=== PATIENT | female | born 1955 | race Caucasian/White ===

== ENCOUNTER → 2017-10-02 16:34 | Outpatient (CLI) | payer MEDICARE, SELFPAY ==
--- NOTE | 2017-10-02 | XR_ITS ---
XR chest 2V HISTORY: Cough and congestion, bronchitis ORDERING PHYSICIAN: Ashley Jain MD PATIENT AGE: 62 years COMPARISON: 06/12/2008 FINDINGS: The cardiomediastinal silhouette and pulmonary vascularity are within normal limits. Patchy density is present in the left lower lobe suspicious for pneumonia. There is chronic coarsening of the bronchovascular markings. Probable pericardial fat pad on the right there is some minimal blunting of the CP angle on the right suggesting small right effusion. IMPRESSION: Chronic change with left lower lobe infiltrate/pneumonia. Small right effusion
== END ==
PROVIDERS: PCP Family Medicine; Visit Provider Family Medicine
DX: J18.9 Pneumonia, unspecified organism (principal)
CPT/HCPCS: 71046

== ENCOUNTER → 2020-01-15 10:17 | Outpatient (CLI) | payer MEDICARE, OTHER, SELFPAY ==
[2020-01-15 12:15] LABS: Coronavirus 19 IgG Antibody Negative (Negative); Coronavirus 19 IgM Antibody Negative (Negative)
== END ==
PROVIDERS: Visit Provider Surgery
DX: Z01.818 Encounter for other preprocedural examination (principal)
CPT/HCPCS: 36415; 86328

== ENCOUNTER 2020-01-16 07:49 | Day surgery (SDC) | payer MEDICARE, OTHER, SELFPAY ==
--- NOTE | 2020-01-14 14:38 | SUR.PREOP ---
01/14/2020--PHONE CALL MADE TO PATIENT. PATIENT UNDERSTANDS THAT LAB WORK AND COVID TESTING NEEDS TO BE COMPLETED @ 0945 ON 01/15/2020. PATIENT UNDERSTANDS IF LAB WORK AND COVID-19 TESTS ARE NOT COMPLETED BY 12PM ON THAT DATE, THE SURGERY SCHEDULED WILL BE CANCELLED AND RESCHEDULED FOR ANOTHER TIME.
[2020-01-15 11:59] VITALS: BMI 39.9
[2020-01-16 08:17] VITALS: BP 143/81; PULSE 87; RESP 20; TEMP 36.5; O2SAT 94
[2020-01-16 09:05] VITALS: O2SAT 97
--- NOTE | 2020-01-16 09:11 | P.PN_ITS ---
[facility] Anesthesia Checklist - Patient Identification Patient Identification: Arm Band, Verbal (Name & ) - Structural Data Admitted From: Home Planned Operative Procedure/s: Colonoscopy Consent for Planned Operative Procedure(s) Verified: Yes Verified Documents: Surgical Consent, History and Physical - NPO Status Verified Time NPO: 22:00 - Chart Verification Results Verified: None - Additional verifications Anesthesia Reactions: No Hx Blood Transfusions: No Blood Transfusion Reaction: No - Airway Assessment C-Spine Mobility Assessed: Yes TMJ Mobility Assessed: Yes Dentition: Good Dentition - Neurological Assessment Level of Consciousness: Awake, Alert, Appropriate, Follows Commands Hx Seizures: No Numbness or tingling in extremities: Yes (left lateral thigh numbness at times) - Anesthesia Plan Anesthesia Risk discussed: Yes Anesthesia Plan: Verified ASA Class: III Anesthesia Type: MAC [facility] History I have reviewed the patient's past medical history: Yes Medical History: Reports:: Asthma, Atrial Fibrillation, Gastroesophageal Reflux Disease(GERD), Hyperlipidemia, Hypertension, Kidney Stones Denies:: Cancer, Diabetes Mellitus Type 1, Diabetes Mellitus Type 2, Internal Pacemaker, MRSA, Seizures *Have you ever received a pneumonia vaccine?: Yes *Have you received a flu vaccine this season?: Yes Other Medical History: Denies: Blood Transfusion Reaction Comment:: morbid obesity Anesthesia experience/problems:: none Laterality Cases: Left: Arthroscopy Knee, Right: Total Hip Replacement Other Surgeries: Yes: Cardiac Catheterization, Cholecystectomy, Colonoscopy, Other. No: Pacemaker Amputation: No Fractures: No - *Social History Educational Level: Completed High School Smoking Status: Never smoker Alcohol Intake: never Alcohol Intake Frequency:: other Substance Use Type: denies use *Occupational Status:: retired Housing: house Household Members: significant other *Travel in the last 8 weeks: None Family Hx:: Cancer
[2020-01-16 09:31] VITALS: BP 89/53; PULSE 74; RESP 18; TEMP 36.3; O2SAT 91
--- NOTE | 2020-01-16 09:33 | HMH.SCOPE ---
- Procedure: Date: 01/16/20 Procedure Performed:: Colonoscopy with polypectomy by means other than snare Indications:: History of polyps Poor bowel preparation on recent colonoscopy Performing Provider:: Jamison Gallegos MD Referring Provider:: . Sedation:: Monitored anesthesia care Procedure:: After informed consent was obtained the patient was taken to the endoscopy suite. Sedation ensued after the patient was transferred to the left lateral decubitus position. Pulse, blood pressure, and oxygen saturation were monitored throughout the procedure. Digital rectal exam revealed no significant abnormality. The colonoscope was placed in position. The entire colon was evaluated. The colonoscope was carefully removed and the patient was transferred to recovery in stable condition. Please see findings and specimens below for detail. Findings:: Bowel preparation moderate to poor Significant diverticulosis throughout colon Significant tortuosity Hemorrhoidal tags Polyps (see specimens) Specimens:: Cecal polyp Polyp at 75 cm Recommendations:: Timing of repeat colonoscopy is pending pathology but will likely be between 2-3 years secondary to limitations in visualization due to preparation/tortuosity. Complications:: No immediate Estimated blood obtained (mL): 1
[2020-01-16 09:41] VITALS: BP 104/70; PULSE 76; RESP 18; O2SAT 96
[2020-01-16 09:51] VITALS: BP 101/62; PULSE 73; RESP 18; O2SAT 94
[2020-01-16 10:01] VITALS: BP 101/62; PULSE 73; RESP 18; O2SAT 94
== END 2020-01-16 10:01 | disposition home or self-care (01) ==
LOC: OUTP 07:50
PROVIDERS: PCP Family Medicine; Visit Provider Surgery
PROC: 0DJD8ZZ Inspection of Lower Intestinal Tract, Via Natural or Artificial Opening Endoscopic (ICD-10-PCS; CPT 45380; principal; 2020-01-16 09:00)
DX: K57.30 Diverticulosis of large intestine without perforation or abscess without bleeding (principal); K64.9 Unspecified hemorrhoids; K63.89 Other specified diseases of intestine; K63.5 Polyp of colon; Z86.010 Personal history of colon polyps; Z79.82 Long term (current) use of aspirin; Z79.899 Other long term (current) drug therapy; I10 Essential (primary) hypertension; E78.5 Hyperlipidemia, unspecified; I48.91 Unspecified atrial fibrillation; Z87.39 Personal history of other diseases of the musculoskeletal system and connective tissue; Z80.9 Family history of malignant neoplasm, unspecified; Z87.442 Personal history of urinary calculi
CPT/HCPCS: 45380; 88305

== ENCOUNTER → 2020-02-19 13:14 | Outpatient (CLI) | payer MEDICARE, OTHER, SELFPAY ==
--- NOTE | 2020-02-19 13:20 | MR_ITS ---
PROCEDURE: MR LUMBAR SPINE WO CON CLINICAL INDICATION: MIDLINE LOW BACK PAIN Low back pain, worse when standing or walking, left leg numbness COMPARISON: LS5 LUMBAR SPINE 5 VIEWS from 06/21/2016 CXR2V XR chest 2V from 10/02/2017 TECHNIQUE: Standard multiplanar multiecho sequences are performed without contrast. 3-D MIP and myelographic images are also rendered and reviewed FINDINGS: There is normal alignment. The spinal cord ends at the T12 level. There is a transitional segment at the lumbosacral junction and is labeled as L5. If any intervention is contemplated then correlation with plain films are needed as well as special attention to the numbering system. T12-L1: Mild degenerative disc disease. L1-L2: Mild degenerative disc disease with mild facet and ligamentum hypertrophy. L2-L3: Mild degenerative disc disease with mild bulging disc along with facet ligamentum hypertrophy causing mild bilateral lateral recess narrowing slightly greater on the right with mild bilateral foraminal narrowing. There is mild kyphosis of the lumbar spine at the L2-L3 level. L3-L4: Mild degenerative disc disease with bulging disc along with facet and ligamentum hypertrophy. There is small central disc protrusion. There is bilateral lateral recess and foraminal narrowing with canal stenosis. L4-5: Degenerative disc disease with bulging disc with endplate hypertrophic change along with facet and ligamentum hypertrophy. There is moderate to severe bilateral foraminal narrowing and mild bilateral lateral recess narrowing. The bulging disc is slightly eccentric toward the left. L5-S1: Unremarkable. IMPRESSION: Abnormal MRI of the lumbar spine with multilevel lumbar spondylosis with degenerative disc disease, bulging disc, facet and ligamentum hypertrophy with lateral recess and foraminal narrowing and canal stenosis. Please see above for detailed description at each level. Dictated by: Mehdi Grady MD 02/20/2020 12:21 Electronically signed by Mehdi Grady MD in [place] 02/20/2020 12:21
== END ==
PROVIDERS: PCP Family Medicine; Visit Provider Family Medicine
DX: M54.42 Lumbago with sciatica, left side (principal)
CPT/HCPCS: 72148; 76376

== ENCOUNTER → 2020-02-27 08:41 | Outpatient (POV) | payer MEDICARE, OTHER, SELFPAY ==
[2020-02-27 09:16] VITALS: BP 120/71; PULSE 73; RESP 18; TEMP 36.6; O2SAT 99; BMI 39.9
--- NOTE | 2020-02-27 09:37 | HMH.PMCON ---
Assessment and Plan (1) Degenerative joint disease (DJD) of lumbar spine Current visit: Yes Status: Chronic Category: Medical Code(s): M47.816 - Spondylosis without myelopathy or radiculopathy, lumbar region (2) Lumbar radiculopathy Current visit: Yes Status: Chronic Category: Medical Code(s): M54.16 - Radiculopathy, lumbar region (3) Spinal stenosis Current visit: Yes Status: Chronic Category: Medical Code(s): M48.00 - Spinal stenosis, site unspecified - Assessment and plan all Dx Assessment and Plan for all problems:: We will schedule the patient for lumbar epidural steroid injection at L4-L5. She is not on any anticoagulation therapy. She is tried physical therapy along with a continued home stretching program and ice and heat therapies. We will plan to see her back after her injection to reassess her symptoms. The patient I did discuss other options, however, patient says that she will likely proceed with surgical intervention if the injections do not give her relief. Patient I did discuss possible mild procedure, however, she does not seem interested in this at this time. She has been instructed to contact the clinic if she has any concerns before her next appointment. The patient and I specifically discussed risk factors for COVID19. These risks include, but are not limited to age greater than 60, heart or lung disease, diabetes, immunosuppression, and travel. We also discussed NSAIDs may worsen COVID19 infection or symptoms. Patient should not use NSAIDs to treat COVID19 signs or symptoms. Patient was also informed that any type of corticosteroid of any form (oral or injection) will decrease the patient's immune system response and may increase the likelihood of COVID19 infection [address] symptoms[address]. Reddy has reviewed this note and agrees with this plan of care. This note was dictated using voice recognition software and make contain errors or omissions. HPI - Data of Consult Patient: new to practice Consult date: 02/27/20 Requesting Physician: Cathy Santiago APRN Primary Care Provider: Ashley Jain MD - Consult Narrative Reason for consult: Left low back pain, left lateral leg pain History of present illness: Ms. Pierson is a 65 year old female who presents today for mid to low back pain with radiation into her left low back and left lateral leg. She says she has numbness and tingling in her left leg. Patient reports the pain to be worse with standing and walking. She says that leaning forward does give her relief. Says she has tried physical therapy and it did not work. She is not interested in pursuing physical therapy again. She is also used ice and heat therapies and anti-inflammatories. Her pain is 7 out of 10. CC: Cathy Santiago APRN [facility] History I have reviewed the patient's past medical history: Yes Medical History: Reports:: Asthma, Atrial Fibrillation, Gastroesophageal Reflux Disease(GERD), Hyperlipidemia, Hypertension, Kidney Stones Denies:: Cancer, Diabetes Mellitus Type 1, Diabetes Mellitus Type 2, Internal Pacemaker, MRSA, Seizures *Have you ever received a pneumonia vaccine?: Yes *Have you received a flu vaccine this season?: Yes Other Medical History: Denies: Blood Transfusion Reaction Laterality Cases: Left: Arthroscopy Knee, Right: Total Hip Replacement Other Surgeries: Yes: Cardiac Catheterization, Cholecystectomy, Colonoscopy, Other. No: Pacemaker Amputation: No Fractures: No - *Social History Smoking Status: Never smoker Alcohol Intake: never Alcohol Intake Frequency:: other Substance Use Type: denies use *Occupational Status:: other Housing: house Household Members: other *Travel in the last 8 weeks: None Family Hx:: Unable to obtain Review of Systems - Review of Systems Review of Systems General: No recent weight changes, no fever, no sleep disturbances Respiratory: No cough, no shortness of air, no recurring pulmonary infections Cardi
== END ==
PROVIDERS: PCP Family Medicine; Visit Provider Clinical Nurse Specialist Family Health
DX: M47.26 Other spondylosis with radiculopathy, lumbar region (principal); M48.00 Spinal stenosis, site unspecified
CPT/HCPCS: 99202

== ENCOUNTER 2020-03-13 10:04 | Day surgery (SDC) | payer MEDICARE, OTHER, SELFPAY ==
[2020-03-13 11:02] VITALS: BP 149/85; PULSE 74; RESP 18; TEMP 36.8; O2SAT 94; BMI 39.9
[2020-03-13 11:30] VITALS: BP 135/88; PULSE 85; RESP 18; O2SAT 98
[2020-03-13 11:31] VITALS: BP 138/88; PULSE 79; RESP 18; O2SAT 99
--- NOTE | 2020-03-13 11:39 | HMH.PMPROC ---
- Procedure Date: 03/13/20 Time: 11:39 Anesthesiologist:: Jhon Reddy MD Complications:: None Pre-procedure Diagnosis:: Degenerative disc disease of lumbar spine with lumbar radiculopathy symptoms Post-procedure Diagnosis:: Same Indications for Procedure:: This patient is a pleasant 65-year-old white female who we are treating for low back pain with lumbar radiculopathy symptoms. She has low back pain rating to both hips and down her left leg. We will do a lumbar epidural steroid injection today to help her with her pain symptoms. Procedure Details:: Lumbar epidural steroid injection Informed consent was obtained and the risk and benefits of the procedure was explained to the patient. The patient was taken to the procedure room. The patient was placed prone on the procedure table. The patient was prepped and draped in sterile fashion. C-arm fluoroscopy was used to view the lumbar spine. Skin and subcutaneous tissues were anesthetized using lidocaine. I placed an 18-gauge epidural needle and advanced into the L4-L5 interspace using fluoroscopic guidance and [id number] to air. After confirmation of needle placement in the epidural space with dye I injected 2 mL of lidocaine 1.5% with Depo-Medrol 80 mg. Patient tolerated the procedure well with no complications. Plan and Disposition:: We will follow-up with her in 2 weeks. Will reevaluate symptoms at that time.
[2020-03-13 11:55] VITALS: BP 135/79; PULSE 69; RESP 20; O2SAT 94
== END 2020-03-13 11:55 | disposition home or self-care (01) ==
LOC: SC.PAINP 10:05
PROVIDERS: PCP Family Medicine; Visit Provider Anesthesiology
DX: M51.16 Intervertebral disc disorders with radiculopathy, lumbar region (principal); I10 Essential (primary) hypertension; K21.9 Gastro-esophageal reflux disease without esophagitis; I25.10 Atherosclerotic heart disease of native coronary artery without angina pectoris; E78.5 Hyperlipidemia, unspecified; I49.9 Cardiac arrhythmia, unspecified; K57.30 Diverticulosis of large intestine without perforation or abscess without bleeding; D64.9 Anemia, unspecified; Z87.39 Personal history of other diseases of the musculoskeletal system and connective tissue; Z79.82 Long term (current) use of aspirin; Z79.899 Other long term (current) drug therapy
CPT/HCPCS: 62323; J1040; Q9966

== ENCOUNTER → 2020-03-31 10:06 | Outpatient (CLI) | payer MEDICARE, OTHER, SELFPAY ==
--- NOTE | 2020-03-31 10:09 | XR_ITS ---
PROCEDURE: XR DEXA AXIAL SKELETON CLINICAL HISTORY: OSTEOPENIA, UNSPECIFIED LOCATION COMPARISON: No exams were available for comparison FINDINGS: The right forearm BMD is 0.706 with a t-score of 0.2. The left hip BMD is 1.199 with a t-score of 2.1. The lumbar spine BMD is 1.309 with a t-score of 2.4. IMPRESSION: This patient is considered normal according to the World Health Organization criteria. Fracture risk is low. Based on these results of follow-up exam is recommended in 2 years Dictated b Mehdi Grady MD 04/01/2020 09:44 Mehdi Grady MD in [place] 04/01/2020 09:44
== END ==
PROVIDERS: PCP Family Medicine; Visit Provider Family Medicine
DX: M85.89 Other specified disorders of bone density and structure, multiple sites (principal)
CPT/HCPCS: 77080

== ENCOUNTER → 2020-04-09 08:42 | Outpatient (POV) | payer MEDICARE, OTHER, SELFPAY ==
[2020-04-09 09:06] VITALS: BP 108/66; PULSE 62; RESP 18; O2SAT 98; BMI 41.2
--- NOTE | 2020-04-09 09:36 | HMH.PAINSOAP ---
[facility] Pain Management SOAP Note Subjective:: Patient is a pleasant 65-year-old white female who presents today for follow-up after lumbar epidural steroid injection. Patient says she did not get any relief after the injection. She has been treated for low back pain with lumbar radiculopathy symptoms. She has pain in her low back with radiation into her left lateral leg. She says that she has occasional numbness and tingling in her left foot. She rates her pain a 7 out of 10 today. She is not interested in further injective therapy. She is also not interested in further interventional therapies. She and I did discuss we can start her on tramadol, however, we will not be able to give anything other than tramadol. She is in agreement with this. She does take gabapentin by her primary care provider. She says this does not give her much relief. Review of Systems General: No recent weight changes, no fever, no sleep disturbances Respiratory: No cough, no shortness of air, no recurring pulmonary infections Cardiovascular/peripheral vascular: No chest pain, no palpitations, no edema, no shortness of breath Gastrointestinal: No new onset incontinence, normal bowel movements reported Genitourinary: No new onset incontinence Musculoskeletal: Back pain, left lateral leg pain Psychiatric: Normal mood/affect Neurological: [Denies weakness in extremities], [denies balance issues] Objective:: Physical exam General: Alert and oriented x3, no acute distress, pleasant and cooperative, [on room air] Lungs: Respirations even and unlabored, symmetrical chest expansion Eyes: PERRL Musculoskeletal: Flexion and extension of lumbar spine somewhat guarded secondary to pain, deep tendon reflexes normal, strength in upper and lower extremities [5/5], [abnormal gait noted] Neurological: Speech clear, 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 3 times daily. Will give her a month of medication see her back in a month and see her back in the clinic. She has been instructed to contact clinic if she has any concerns before her next appointment. The patient and I specifically discussed risk factors for COVID19. These risks include, but are not limited to age greater than 60, heart or lung disease, diabetes, immunosuppression, and travel. We also discussed NSAIDs may worsen COVID19 infection or symptoms. Patient should not use NSAIDs to treat COVID19 signs or symptoms. Patient was also informed that any type of corticosteroid of any form (oral or injection) will decrease the patient's immune system response and may increase the likelihood of COVID19 [address] Reddy has reviewed this note and agrees with this plan of care. This note was dictated using voice recognition software and make contain errors or omissions. [facility] History I have reviewed the patient's past medical history: Yes Medical History: Reports:: Arrhythmia, Asthma, Atrial Fibrillation, Coronary Artery Disease, Gastroesophageal Reflux Disease(GERD), Hyperlipidemia, Hypertension, Kidney Stones Denies:: Cancer, Diabetes Mellitus Type 1, Diabetes Mellitus Type 2, Internal Pacemaker, MRSA, Seizures *Have you ever received a pneumonia vaccine?: Yes *Have you received a flu vaccine this season?: Yes Other Medical History: Reports: Anemia. Denies: Blood Transfusion Reaction Laterality Cases: Left: Arthroscopy Knee, Right: Total Hip Replacement Other Surgeries: Yes: Cardiac Catheterization, Cholecystectomy, Colonoscopy, Other. No: Pacemaker Amputation: No Fractures: No - *Social History Smoking Status: Never smoker Alcohol Intake: never Alcohol Intake Frequency:: other Substance Use Type: denies use *Occupational Status:: other Housing: house Household Members: other *Travel in the last 8 weeks: None Family Hx:: Unable to obtain
== END ==
PROVIDERS: PCP Family Medicine; Visit Provider Clinical Nurse Specialist Family Health
DX: M51.16 Intervertebral disc disorders with radiculopathy, lumbar region (principal)
CPT/HCPCS: 99212

== ENCOUNTER → 2020-05-26 10:11 | Outpatient (CLI) | payer MEDICARE, OTHER, SELFPAY ==
--- NOTE | 2020-05-26 10:14 | CA_ITS ---
APPROVED REPORT EXAM: Comprehensive 2D, Doppler, and color-flow Echocardiogram Pouncing Machine Operator: Amy Beltre RDCS Ht: 5 ft 6 in Wt: 246lbs BSA: 2.18 BP: 126/66 mmHg Indications: HTN,CAD,STEVENS,HLP 2D Dimensions LVOT 1.73 cm (M/F) 1.5-2.5 M-Mode Dimensions RVDd 3.82 cm (0.9-2.6) LVDd 4.39 cm (3.5-5.7) LVDs 3.66 cm (3.5-5.7) IVSd 1.09 cm (0.6-1.1) PWd 1.13 cm (0.6-1.1) EF (Teich) 35.10% FS 16.60% EDV (Teich) 87.20 mL ESV (Teich) 56.60 mL LV Diastology E/A Ratio 0.76 Mitral Valve MV A Velocity 61.00 (40-130 cm/s) Left Ventricle Left atrium is mildly enlarged, left ventricle is normal size, mild concentric left ventricular hypertrophy, visually estimated ejection fraction 55% with no regional wall motion abnormality. Grade 1 diastolic dysfunction seen without tissue Doppler evidence of raise left atrial pressure. Right Ventricle Right atrium and right ventricular mildly enlarged with normal contractility. Aortic Valve Aortic valve is thickened and calcified leaflet continue to display good mobility, there is no aortic stenosis or aortic insufficiency. Mitral Valve Mitral valve is minimally thickened, there is mild mitral regurgitation. Tricuspid Valve Tricuspid valve is grossly normal, there is mild tricuspid regurgitation, calculated right ventricular systolic pressure is approximately 45 mmHg. Pulmonic Valve Pulmonic valve is poorly visualized. Great Vessels Aortic root is normal size. Pericardium No significant pericardial effusion noted. Conclusion 1. Biatrial enlargement, normal left ventricular size, mild concentric left ventricular hypertrophy, visually estimated ejection fraction 55% with no regional wall motion abnormality, grade 1 diastolic dysfunction seen without tissue Doppler evidence of raise left atrial pressure. 2. Mildly enlarged right ventricle with normal contractility. 3. Mild mitral and tricuspid regurgitation, calculated right ventricular systolic pressure is 45 mmHg. 4. No significant pericardial effusion noted. Electronically signed by : Jermaine Tesfaye, 05/26/2020 20:34:48
== END ==
PROVIDERS: PCP Family Medicine; Visit Provider Urology
DX: I11.9 Hypertensive heart disease without heart failure; I25.10 Atherosclerotic heart disease of native coronary artery without angina pectoris; R06.09 Other forms of dyspnea; E78.49 Other hyperlipidemia
CPT/HCPCS: 93306

== ENCOUNTER → 2020-09-16 15:57 | Outpatient (CLI) | payer MEDICARE, OTHER, SELFPAY ==
[2020-09-16 17:02] LABS: Chloride 98 mmol/L (98-107)
[2020-09-16 17:03] LABS: Potassium 3.8 mmoL/L (3.5-5.1); Sodium 138 mmol/L (136-145)
[2020-09-16 17:05] LABS: Alanine Aminotransferase 18 U/L (12-78); Alkaline Phosphatase 124 U/L (38-126); Aspartate Amino Transferase 20 U/L (14-36); Bilirubin,Total 0.8 mg/dl (0.2-1.3); Blood Urea Nitrogen 17 mg/dl (7-17); Estimated Glomerular Filt Rate 62 ml/min (>60); GFR (African American) 76 ML/MIN (>60)
[2020-09-16 17:06] LABS: Albumin Level 4.2 g/dl (3.5-5.0); Albumin/Globulin Ratio 1.1 (1.1-1.8); Anion Gap 12.8 mEq/L (5-15); Carbon Dioxide 31 mmol/L (22.0-30.0); Chol/HDL Ratio 2.9 (1-3.5); Cholesterol 147 mg/dl (140-200); Globulin 3.9 g/dL (1.3-3.2); Glucose 102 mg/dl (74-100); HDL Cholesterol 50 mg/dl (40-60); Total Protein,Serum 8.1 g/dl (6.3-8.2); Triglycerides 183 mg/dl (30-150); VLDL Cholesterol 37 mg/dL (0-40)
[2020-09-16 17:17] LABS: Direct LDL Cholesterol 40.05 mg/dL (100-129)
[2020-09-16 17:46] LABS: Uric Acid 7.1 mg/dl (2.5-6.2)
== END ==
PROVIDERS: Visit Provider Family Medicine
DX: M79.672 Pain in left foot (principal); E78.00 Pure hypercholesterolemia, unspecified; I10 Essential (primary) hypertension
CPT/HCPCS: 36415; 80053; 80061; 84550

== ENCOUNTER → 2020-11-24 13:28 | Outpatient (CLI) | payer MEDICARE, OTHER, SELFPAY | PROVIDERS: PCP Family Medicine; Visit Provider Family Medicine | DX: G47.33 Obstructive sleep apnea (adult) (pediatric) (principal); I10 Essential (primary) hypertension; G47.00 Insomnia, unspecified; R06.83 Snoring | CPT/HCPCS: G0399 ==

== ENCOUNTER → 2021-01-13 13:51 | Outpatient (CLI) | payer MEDICARE, OTHER, SELFPAY ==
--- NOTE | 2021-01-13 | ECG_ITS ---
APPROVED REPORT Exam: Resting ECG HR:77 bpm ECG Measurements Heart Rate 77 AXES MS 156 P 67 QRSd 80 QRS -35 QT 402 T 19 QTc 454 Conclusion Sinus rhythm with frequent premature ventricular complexes in a pattern of bigeminy Left axis deviation Low voltage QRS Cannot rule out Anterior infarct, age undetermined Abnormal ECG Electronically signed by : Hermann Aleman, 01/16/2021 07:32:52
== END ==
PROVIDERS: PCP Family Medicine; Visit Provider Family Medicine
DX: R00.1 Bradycardia, unspecified (principal)
CPT/HCPCS: 93005

== ENCOUNTER → 2021-01-15 11:35 | Outpatient (CLI) | payer MEDICARE, OTHER, SELFPAY ==
[2021-01-15 13:13] LABS: NT Pro Brain Natriuretic Pep. 467 pg/mL (0-125)
== END ==
PROVIDERS: Visit Provider Internal Medicine Cardiovascular Disease
DX: R06.09 Other forms of dyspnea (principal)
CPT/HCPCS: 36415; 83880

== ENCOUNTER → 2021-01-22 09:55 | Outpatient (CLI) | payer MEDICARE, OTHER, SELFPAY ==
[2021-01-22 10:59] LABS: Anion Gap 14.1 mEq/L (5-15); Blood Urea Nitrogen 18 mg/dl (7-17); Calcium 9.8 mg/dl (8.4-10.2); Carbon Dioxide 25 mmol/L (22.0-30.0); Chloride 103 mmol/L (98-107); Estimated Glomerular Filt Rate 71 ml/min (>60); GFR (African American) 86 ML/MIN (>60); Glucose 104 mg/dl (74-100); Potassium 4.1 mmoL/L (3.5-5.1); Sodium 138 mmol/L (136-145)
== END ==
PROVIDERS: Visit Provider Internal Medicine Cardiovascular Disease
DX: I11.9 Hypertensive heart disease without heart failure; I25.10 Atherosclerotic heart disease of native coronary artery without angina pectoris; I49.3 Ventricular premature depolarization; R06.09 Other forms of dyspnea; R60.9 Edema, unspecified; R94.31 Abnormal electrocardiogram [ECG] [EKG]
CPT/HCPCS: 36415; 80048

== ENCOUNTER → 2021-01-25 11:15 | Outpatient (CLI) | payer MEDICARE, OTHER, SELFPAY ==
--- NOTE | 2021-01-25 | CA_ITS ---
APPROVED REPORT Exam: Pharmacologic Technologist: analy sams, Ht: 5 ft 8 in Wt: 240 lbs BSA: 2.21 m2 HR: 70 bpm BP: 126/74 mmHg Indications: SOB Medical History Medications: Metoprolol,,,,, Asa,,,,, Gabapentin,,,,, Losartan,,,,, Allopurinol,,,,, Lipitor,,,,, Tramadol,,,,, Esomeprazole,,,,, SpirOnolactone,,,,, MonteKULAST,,,,, PotTASSIUM,,,,, Allergies: codeine Cardiac Risk Factors: HTN, Hyperlipidemia, FHX of CAD Stress Test Details Test: LEXISCAN HR Resting HR: 74 bpm Max Heart Rate (APMHR): 152.618296 bpm Max HR Achieved: 109 bpm Target HR (85% APMHR): 129.328524 bpm % of APMHR: 71.71 Recovery HR: 97 bpm BP Resting BP: 126/74 mmHg Max BP: 147/69 mmHg Recovery BP: 124.0/73.0 mmHg ECG Clinical Exercise duration: 04:01 min Highest Stage Achieved: Stress ECG Conclusion Dizziness, chest heaviness, and SOA noted during peak infusion, resolved in recovery. Pvc's noted. Less than 1.5mm ST segment changes. Images to follow. Electronically signed by : Evangelista Salomon, 01/29/2021 12:48:42
--- NOTE | 2021-01-25 11:15 | NM_ITS ---
APPROVED REPORT Exam: Nuclear Stress Test Indication: DYSRHYTHMIA, OBESITY, HYPERLIPIDEMIA, FM HX. ,SOB, PALPITATIONS Patient Location: Outpatient Stress Tech: Rea Huntley [place] Tech:Farraheve Watson, STANT, RT (R)(N) Ht: 5 ft 5 in Wt: 240 lbs Bra Size: 40D HR: 72 bpm BP: 126/74 mmHg BSA: 2.14 m2 BMI: 39.9 Procedure: Patient received a 0.4 mg of intravenous Lexiscan, resting heart rate 72 bpm, resting blood pressure 126/74 mmHg, with Lexiscan maximum heart rate achived was 109 bpm which is % of the maximum predicted heart rate and blood pressure was 147/69 mmHg. With Lexiscan, patient denied any complaint of chest pain. Cardiac Stress and Resting SPECT Images: Cardiac Stress and Resting SPECT images were obtained using technetium 99m Myoview 32.7 mCi stress and 10.53 mCi at rest. Ejection fraction: 73% Normal wall motion. No fixed or reversible defects. Conclusion: Normal Electronically signed by : Mehdi Grady MD 02/11/2021 09:54:23
--- NOTE | 2021-01-25 13:19 | HMH.ITSHM ---
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 []TRAMADOL SPIRONOLACTONE POTASSIUM MONTELUKAST ATORVASTASTIN METOPROLOL LOSARTAN GABAPENTIN EOMEPRAZOLE ASA ALLOPURINOL
== END ==
PROVIDERS: PCP Family Medicine; Visit Provider Internal Medicine Cardiovascular Disease
DX: I11.9 Hypertensive heart disease without heart failure; I25.10 Atherosclerotic heart disease of native coronary artery without angina pectoris; I49.3 Ventricular premature depolarization; R06.09 Other forms of dyspnea; R60.9 Edema, unspecified; R94.31 Abnormal electrocardiogram [ECG] [EKG]; E78.49 Other hyperlipidemia
CPT/HCPCS: 78452; 93017; A9502; J2785

== ENCOUNTER → 2021-02-20 12:11 | Outpatient (CLI) | payer MEDICARE, OTHER, SELFPAY ==
[2021-02-20 12:53] LABS: Alanine Aminotransferase 23 U/L (12-78); Albumin Level 4.2 g/dl (3.5-5.0); Albumin/Globulin Ratio 1.2 (1.1-1.8); Alkaline Phosphatase 134 U/L (38-126); Anion Gap 17.7 mEq/L (5-15); Aspartate Amino Transferase 24 U/L (14-36); Bilirubin,Total 0.5 mg/dl (0.2-1.3); Blood Urea Nitrogen 17 mg/dl (7-17); Calcium 9.6 mg/dl (8.4-10.2); Carbon Dioxide 24 mmol/L (22.0-30.0); Chloride 102 mmol/L (98-107); Estimated Glomerular Filt Rate 71 ml/min (>60); GFR (African American) 86 ML/MIN (>60); Globulin 3.4 g/dL (1.3-3.2); Glucose 102 mg/dl (74-100); Potassium 4.7 mmoL/L (3.5-5.1); Sodium 139 mmol/L (136-145); Total Protein,Serum 7.6 g/dl (6.3-8.2)
[2021-02-20 13:10] LABS: Free T4 (Free Thyroxine) 0.91 ng/dl (0.78-2.19)
[2021-02-20 13:24] LABS: Thyroid Stimulating Hormone 1.47 uIU/mL (0.465-4.68)
== END ==
PROVIDERS: Visit Provider Family Medicine
DX: R25.1 Tremor, unspecified (principal)
CPT/HCPCS: 36415; 80053; 84439; 84443

== ENCOUNTER → 2021-06-18 16:40 | Outpatient (CLI) | payer MEDICARE, OTHER, SELFPAY ==
[2021-06-18 17:36] LABS: Strep Scrn Group A (Rapid) Negative (Negative)
== END ==
PROVIDERS: PCP Family Medicine; Visit Provider Physician Assistant
DX: Z20.822 Contact with and (suspected) exposure to COVID-19 (principal)
CPT/HCPCS: 87430; C9803; U0003; U0005

== ENCOUNTER → 2021-08-23 17:08 | Outpatient (CLI) | payer MEDICARE, OTHER, SELFPAY ==
[2021-08-23 18:29] LABS: Alanine Aminotransferase 29 U/L (12-78); Albumin Level 4.3 g/dl (3.5-5.0); Albumin/Globulin Ratio 1.2 (1.1-1.8); Alkaline Phosphatase 136 U/L (38-126); Anion Gap 11.7 mEq/L (5-15); Aspartate Amino Transferase 32 U/L (14-36); Bilirubin,Total 0.6 mg/dl (0.2-1.3); Blood Urea Nitrogen 20 mg/dl (7-17); Calcium 10.2 mg/dl (8.4-10.2); Carbon Dioxide 33 mmol/L (22.0-30.0); Chloride 95 mmol/L (98-107); Estimated Glomerular Filt Rate 71 ml/min (>60); GFR (African American) 86 ML/MIN (>60); Globulin 3.6 g/dL (1.3-3.2); Glucose 92 mg/dl (74-100); Potassium 4.7 mmoL/L (3.5-5.1); Sodium 135 mmol/L (136-145); Total Protein,Serum 7.9 g/dl (6.3-8.2)
== END ==
PROVIDERS: Visit Provider Family Medicine
DX: I10 Essential (primary) hypertension (principal)
CPT/HCPCS: 36415; 80053

== ENCOUNTER → 2021-08-31 14:01 | Outpatient (CLI) | payer MEDICARE, OTHER, SELFPAY | PROVIDERS: Visit Provider Nurse Practitioner | DX: U07.1 COVID-19 (principal) | CPT/HCPCS: C9803; U0003; U0005 ==

== ENCOUNTER 2021-10-04 11:47 | Emergency (ER) | payer MEDICARE, OTHER, SELFPAY ==
[2021-10-04 13:20] VITALS: BP 131/82; PULSE 83; RESP 18; TEMP 36.8; O2SAT 99; BMI 42.5
--- NOTE | 2021-10-04 13:54 | HMH.EDUTC ---
[facility] [place] Disposition Clinical Impression: Impacted ear wax Qualifiers: Laterality: bilateral Qualified Code(s): H61.23 - Impacted cerumen, bilateral Disposition: Home, Self-Care Condition on Discharge: Good Instructions: DI for Cerumen Impaction Additional Instructions: Over the counter debrox may help with ear wax removal use as directed on package Follow up with your Family Doctor for further treatment and evaluation Return if needed Straight to ER if any life threatening symptoms Referrals: Ashley Jain MD [Primary Care Provider] - Time of Disposition: 14:05 Medical Decision Making - [place] Inquiry Pt receiving controlled substance: No [place] was queried for this patient: No Vital Signs: 10/04/21 13:20 Temperature 98.2 F Temperature Source Oral Pulse Rate [Right Brachial] 83 Respiratory Rate 18 Blood Pressure [Right Arm] 131/82 Blood Pressure Mean [Right Arm] 98 Blood Pressure Source [Right Arm] Automatic Cuff Blood Pressure Position [Right Arm] Sitting 02 Sat by Pulse Oximetry 99 Oxygen Delivery Method Room Air [facility] [place] HPI - General Stated complaint: left ear clogged pain Time Seen by Provider: 10/04/21 13:54 Mode of Arrival: Ambulatory Source of Information: Patient Limitations: No Limitations Description of Symptoms (Recalled from Triage Doc. by RN): PATIENT C/O CLOGGED AND PAINFUL EAR X 2 DAYS HEENT Symptoms (Recalled from RN notes): Yes Resp Symptoms (Recalled from RN notes): No Skin Symptoms (Recalled from RN notes): No MS Symptoms (Recalled from RN notes): No Functional Status (Recalled from RN notes): WNL - History of Present Illness Provider Complaint: patient states that she has been feeling like her left ear is clogged up and not been able to hear out of it well states that she has been using the ear wax drops but it hasnt helped so she came in to see if she could get her ears cleaned out - Related Data Home Medications Medication Instructions Recorded Confirmed montelukast 10 mg tablet 10 mg PO QHS PRN 30 Days #30 tab 05/08/18 03/10/21 aspirin 81 mg tablet,delayed 81 mg PO DAILY 05/28/19 03/10/21 release esomeprazole magnesium 20 mg 20 mg PO DAILY 12/16/20 03/10/21 capsule,delayed release potassium chloride 10 mEq 10 meq PO tab 04/28/21 07/21/21 tablet,extended release allopurinol 100 mg tablet 100 mg PO DAILY tab 01/27/21 03/10/21 gabapentin 300 mg capsule 300 mg PO PRN cap 01/27/21 03/10/21 primidone 50 mg tablet 50 mg PO ONCE tab 03/10/21 03/10/21 Previous Rx's Medication Instructions Recorded losartan 25 mg tablet See Rx Instructions .ROUTE 05/31/21 .COMPLEX #90 tab atorvastatin 40 mg tablet See Rx Instructions .ROUTE 07/05/21 .COMPLEX #90 tab metoprolol succinate 50 mg See Rx Instructions .ROUTE 07/05/21 tablet,extended release 24 hr .COMPLEX #90 tab spironolactone 25 mg tablet See Rx Instructions .ROUTE 07/05/21 .COMPLEX #90 tab Allergies Allergy/AdvReac Type Severity Reaction Status Date / Time codeine Allergy Intermediate Nausea Verified 03/10/21 13:04 naproxen [From Aleve] Allergy Verified 10/04/21 13:41 - Worker's Comp Is this a Worker's Comp case?: No [facility] History - Hepatitis A Screen Drug use history?: No High risk sexual behaviors?: No History of sexually transmitted infection?: No Currently employed?: No Childcare worker?: No Do you have indoor plumbing?: Yes Do you have electricity?: Yes Attestation statement:: This patient has been screened for Hepatitis A risk factors. I have reviewed the patient's past medical history: Yes Medical History: Reports:: Arrhythmia, Asthma, Atrial Fibrillation, Cancer, Coronary Artery Disease, Gastroesophageal Reflux Disease(GERD), Hyperlipidemia, Hypertension, Kidney Stones Denies:: Diabetes Mellitus Type 1, Diabetes Mellitus Type 2, Internal Pacemaker, MRSA, Seizures Other Medical History: Reports: Anemia, Cataracts. Denies: Blood Transfusion Reaction Comment: morbid obesity L
[2021-10-04 14:37] VITALS: BP 131/82; PULSE 83; RESP 18; TEMP 36.8; O2SAT 99
== END 2021-10-04 14:46 | disposition home or self-care (01) ==
PROVIDERS: Emergency Provider Nurse Practitioner; PCP Family Medicine
DX: H92.03 Otalgia, bilateral (principal); H61.23 Impacted cerumen, bilateral; I48.0 Paroxysmal atrial fibrillation; K21.9 Gastro-esophageal reflux disease without esophagitis; E78.5 Hyperlipidemia, unspecified
CPT/HCPCS: G0463; 99202

== ENCOUNTER → 2021-10-19 10:48 | Outpatient (CLI) | payer MEDICARE, OTHER, SELFPAY ==
--- NOTE | 2021-10-19 11:43 | CA_ITS ---
FINAL REPORT TECHNIQUE: Color Doppler, duplex Doppler and armstrong scale sonography of the bilateral neck arterial vasculature was performed. Velocities were measured in the carotid arteries. Stenosis evaluation based on the validated velocity criteria. CLINICAL HISTORY: bruit, CAD, SOB, HTN, HLD, AFIB, PT HT5'3 WT 235 Difficult exam FINDINGS: The peak systolic velocity of the right common carotid artery is 81 cm/s. The peak systolic velocity of the right internal carotid artery is 78 cm/s and end diastolic velocity 26 cm/s. The ICA/CCA ratio is 0.97. A small amount of plaque is present. The right external carotid artery is patent. The right vertebral artery is patent with antegrade flow. The peak systolic velocity of the left common carotid artery is 106 cm/s. The peak systolic velocity of the left internal carotid artery is 59 cm/s and end diastolic velocity 26 cm/s. The ICA/CCA ratio is 0.84. A small amount of plaque is present. The left external carotid artery is patent.The left vertebral artery is patent with antegrade flow. IMPRESSION: Less than 50% bilateral carotid stenoses. Bilateral patent vertebral arteries with antegrade flow. If indicated, CTA or MRA could further evaluate. Reviewed, Interpreted and Dictated by Estrada Mccormick III, MD Transcribed by Elizabeth Hancock Authenticated by Estrada Mccormick III, MD on 10/19/2021 04:18:59 PM [facility]
== END ==
PROVIDERS: PCP Family Medicine; Visit Provider Internal Medicine Cardiovascular Disease
DX: E78.49 Other hyperlipidemia (principal); I11.9 Hypertensive heart disease without heart failure; I25.10 Atherosclerotic heart disease of native coronary artery without angina pectoris; R09.89 Other specified symptoms and signs involving the circulatory and respiratory systems
CPT/HCPCS: 93880

== ENCOUNTER → 2021-10-26 15:11 | Outpatient (CLI) | payer MEDICARE, OTHER, SELFPAY ==
--- NOTE | 2021-10-26 15:24 | XR_ITS ---
FINAL REPORT CLINICAL HISTORY: RT FOOT PAIN AFTER STUBBING TOES 2 WEEKS AGO FINDINGS: 2 views of the right foot were obtained. There is no acute fracture or dislocation. There are mild degenerative changes. There is no soft tissue abnormality. There are calcaneal spurs. IMPRESSION: No acute process. Reviewed, Interpreted and Dictated by Estrada Mccormick III, MD Transcribed by Red Graham Authenticated by Estraad Mccormick III, MD on 10/26/2021 04:14:36 PM [facility]
== END ==
PROVIDERS: PCP Family Medicine; Visit Provider Family Medicine
DX: M79.671 Pain in right foot (principal)
CPT/HCPCS: 73630

== ENCOUNTER 2022-07-26 15:00 | Outpatient (RCR) | payer MEDICARE, OTHER, SELFPAY ==
--- NOTE | 2022-06-30 15:50 | HMH.OTOPEV ---
OT Inpatient Evaluation Rehab OT Outpatient Eval Start: 06/30/22 15:39 Freq: Status: Active Protocol: Document 06/30/22 15:39 RMARSHALCarroll (Rec: 06/30/22 15:50 [facility] [id number]) E-signed By Zane Gibbs, OT Outpatient Therapy Subjective History Subjective History Pt is a 67 year old female who reports to therapy for initial evaluation to left shoulder. Pt reports in April she fell going up her deck steps and landed on her left shoulder and hitting her head. Initially, she did not experience pain at left shoulder. However, 2-3 weeks after her fall she began having pain and limited range of motion. Pt complains of the worst pain when she is moving left shoulder into abduction with ER. Pt is right hand dominant. At this time, she has not had an X-ray or MRI. She does have a history of arthritis. Pt demonstrates with decreased AROM and strength at left shoulder. Pt will continue to be seen twice a week in order to address left shoulder deficits. Chief Complaint Pain,Stiff,Weakness Symptom Type Ache,Throb,Sharp,Dull Symptoms Relieved By Rest/Positioning Symptoms Aggravated By Physical Activity,Lifting Prior Functional Limitations None Current Functional Limitations Reaching,Lifting,Housework, Dressing,Sleeping,Recreation Activity Symptom Description Intermittent,Activity Dependent Level of pain today (0-10) 3 Pain scale - at its best (0-10) 0 Pain scale - at its worst (0-10) 8 Shoulder/Elbow Eval Shoulder Objective Measurements Shoulder ROM Left Shoulder Abduction Active Range of 125 degrees Motion (degrees) Shoulder Flexion Active Range of Motion 110 degrees (degrees) Query Text: Shoulder External Rotation Active Range 75 degrees of Motion (degrees) Shoulder Internal Rotation Active Range 40 degrees of Motion (degrees) pain with active ROM shoulder exam left standard
--- NOTE | 2022-07-26 15:50 | HMH.RHREAS ---
Rehab Reassessment Rehab OP Re-assessment Start: 07/26/22 14:45 Freq: Status: Active Protocol: Document 07/26/22 14:45 RMSHIRAHALL (Rec: 07/26/22 15:50 RMARSHALL [id number]) E-signed By Zane Gibbs OT Rehab Re-assessment Subjective Subjective I am still having a lot of pain. Objective Objective Notes Pt continues to be seen twice a week in order to address left shoulder deficts. Each session, pt engages in L shoulder AROM, AAROM, and strengthening exercises. Pt also received PROM manual stretching to left shoulder. Modalities are provided in order to decrease pain/ inflammation. Assessment Progress Assessment Slower Than Expected Assessment Notes Pt has been consistent about attending thearpy sessions and completing HEP independently. However, pt demostrates minimal progress with AROM and strength since initial evaluation. She also continues to complain of her worst pain at a 8/10 pain ( same as initila evaluation). Today her pain is a 6/10. She returns to her PCP on . Current AROM L shoulder Flex: 115 degrees Abd: 130 degrees ER: 75 degrees IR: 65 degrees Patient goals met ST, 3, and 5 Goals Not Met See below Revised Goals ST and 4 LT-5 Plan Plan Therapist recommends pt receive a MRI to left shoulder and possibly seek an evaluation from orthopedics due to minimal progress and continued significant pain. Frequency of Therapy 2x's a week Duration of therapy 4 more weeks Time and Billing Re-Eval Time 11 Re-Eval Billing Units 1 PHYSICIAN CERTIFICATION: I certify the specified therapy services for Sanjana Pierson are required, autho
== END 2022-07-26 15:05 | disposition home or self-care (01) ==
LOC: OT 15:00
PROVIDERS: PCP Family Medicine; Visit Provider Family Medicine
DX: M25.512 Pain in left shoulder (principal)
CPT/HCPCS: 97010; 97014; 97035; 97110; 97140; 97164; 97166; 97530; G0283

== ENCOUNTER → 2022-08-17 15:56 | Outpatient (CLI) | payer MEDICARE, OTHER, SELFPAY ==
--- NOTE | 2022-08-17 16:00 | MR_ITS ---
PROCEDURE INFORMATION: Exam: MR Left Upper Extremity Joint Without Contrast; Shoulder Exam date and time: 08/17/2022 3:59 PM Age: 67 years old Clinical indication: Pain; Shoulder; Left; Additional info: Acute left shoulder pain. PT fell 3 months ago and shoulder pain since. Limited rom. TECHNIQUE: Imaging protocol: Magnetic resonance imaging of the Left upper extremity without contrast. Exam focused on the shoulder. COMPARISON: US CA CAROTID DUPLEX BI 10/19/2021 11:02 AM FINDINGS: Bones and cartilage: Acromioclavicular arthropathy, with effacement of the underlying tissue planes. A mildly C-shaped acromion process is visualized. Mild osseous cystic change involving the greater tuberosity and lateral aspect of the humeral head. No dislocation of the shoulder. There is slight increased concavity of the posterolateral humeral head, likely representing post-traumatic change or Hill-Sachs defect. Joint spaces: Small glenohumeral joint effusion. Glenoid labrum: The anterior aspect of the labrum is small in size, which can be developmental. Heterogeneous signal intensity of the posterosuperior aspect of the labrum on series 11. Labral tear cannot be excluded. Bursae: Small amount of fluid within the subscapularis recess and subcoracoid bursa. Supraspinatus tendon: There is at least high-grade partial tear of the supraspinatus tendon. Minimal fluid is seen within the subdeltoid/subacromial bursal, and full-thickness tear cannot be excluded. Infraspinatus tendon: Partial tear of the infraspinatus tendon. Subscapularis tendon: Tendinosis visualized of the subscapularis tendon. Teres minor tendon: No evidence of tear. Tendon of biceps brachii: Increased fluid within the bicipital tendon sheath, consistent with tenosynovitis. There is a subcentimeter cystic collection of fluid medial to the bicipital tendon sheath. Glenohumeral ligaments: There is a decrease in caliber of the glenoid attachment of the inferior glenohumeral ligament, and partial tear is suggested. Additional heterogeneous signal intensity is identified of the inferior glenohumeral ligament. Muscles: No visualized acute abnormality. Soft tissues: Unremarkable. Lymph nodes: Nonspecific axillary lymph nodes. One of these lymph nodes is enlarged measuring 2.3 cm in length with a prominent fatty hilum. IMPRESSION: 1. There is at least high-grade partial tear of the supraspinatus tendon. Minimal fluid is seen within the subdeltoid/subacromial bursal, and full-thickness tear cannot be excluded. 2. Partial tear of the infraspinatus tendon. 3. There is slight increased concavity of the posterolateral humeral head, likely representing post-traumatic change or Hill-Sachs defect. 4. Small glenohumeral joint effusion. 5. Increased fluid within the bicipital tendon sheath, consistent with tenosynovitis. 6. Tendinosis visualized of the subscapularis tendon. 7. Acromioclavicular arthropathy, with effacement of the underlying tissue planes. 8. There is a decrease in caliber of the glenoid attachment of the inferior glenohumeral ligament, and partial tear is suggested. 9. Additional findings described above.
== END ==
PROVIDERS: PCP Family Medicine; Visit Provider Family Medicine
DX: M25.512 Pain in left shoulder (principal)
CPT/HCPCS: 73221

== ENCOUNTER → 2022-08-30 08:36 | Outpatient (CLI) | payer MEDICARE, OTHER, SELFPAY ==
--- NOTE | 2022-08-30 08:40 | XR_ITS ---
FINAL REPORT CLINICAL HISTORY: shoulder pain FINDINGS: Left shoulder Four views were obtained. There is no acute fracture or dislocation. There is mild AC joint degenerative change. No soft tissue abnormality is identified. IMPRESSION: No acute process. Reviewed, Interpreted and Dictated by Estrada Mccormick III, MD Transcribed by Elizabeth Hancock Authenticated and [facility]
== END ==
PROVIDERS: PCP Family Medicine; Visit Provider Orthopaedic Surgery
DX: M25.512 Pain in left shoulder (principal)
CPT/HCPCS: 73030

== ENCOUNTER 2022-09-30 15:00 | Outpatient (RCR) | payer MEDICARE, OTHER, SELFPAY ==
--- NOTE | 2022-09-08 14:56 | HMH.OTOPEV ---
OT Inpatient Evaluation Rehab OT Outpatient Eval Start: 09/08/22 14:20 Freq: Status: Active Protocol: Document 09/08/22 14:47 SILVERJOSE (Rec: 09/08/22 14:55 LCKYLAHIS [id number]) E-signed By Cleopatra Fragoso, OT Outpatient Therapy Subjective History Subjective History 67 year old female referred to skilled OP OT services again for Lt shoulder pain. Patient was recently seen by another OT at [facility] for Lt shld pain from 06/30/22-07/26/22 with a total of 7 visits. After no progress was being made, OT recommended patient recieve an MRI on left shld and referred to ortho. On 08/17/22 MRI completed on Lt shld with findings of: 1. There is at least high- grade partial tear of the supraspinatus tendon. Minimal fluid is seen within the subdeltoid/subacromial bursal, and full-thickness tear cannot be excluded. 2. Partial tear of the infraspinatus tendon. 3. There is slight increased concavity of the posterolateral humeral head, likely representing post- traumatic change or Hill-Sachs defect. 4. Small glenohumeral joint effusion. 5. Increased fluid within the bicipital tendon sheath, consistent with tenosynovitis. 6. Tendinosis visualized of the subscapularis tendon. 7. Acromioclavicular arthropathy, with effacement of the underlying tissue planes. 8. There is a decrease in caliber of the glenoid attachment of the inferior glenohumeral ligament, and partial tear is suggested. 9. Additional findings described above Chief Complaint Pain,Weakness Symptom Type
== END 2022-09-30 15:05 | disposition home or self-care (01) ==
LOC: OT 15:00
PROVIDERS: PCP Family Medicine; Visit Provider Orthopaedic Surgery
DX: M25.512 Pain in left shoulder (principal); M79.642 Pain in left hand
CPT/HCPCS: 97010; 97014; 97035; 97110; 97140; 97165; 97530; G0283

== ENCOUNTER → 2022-10-24 15:41 | Outpatient (CLI) | payer MEDICARE, OTHER, SELFPAY ==
[2022-11-04 20:02] LABS: APTT 27.2 sec (.); Anti-Cardiolipin Antibody IgG <10 GPL (.); Anti-Cardiolipin Antibody IgM <10 MPL (.); Beta-2 Glycoprotein I Ab, IgA <10 SAU (.); Beta-2 Glycoprotein I Ab, IgG <10 SGU (.); Beta-2 Glycoprotein I Ab, IgM <10 SMU (.); Hexagonal Phase Phospholipid 5 sec (.); INR 1.1 ratio (.); Prothrombin Time 11.2 sec (.); Thrombin Time 18.7 sec (.)
== END ==
PROVIDERS: PCP Family Medicine; Visit Provider Family Medicine
DX: R76.8 Other specified abnormal immunological findings in serum (principal); Z51.81 Encounter for therapeutic drug level monitoring
CPT/HCPCS: 36415; 85597; 85598; 85610; 85613; 85670; 85730; 86146; 86147

== ENCOUNTER → 2022-11-09 12:57 | Outpatient (CLI) | payer MEDICARE, OTHER, SELFPAY ==
[2022-11-09 13:29] LABS: Microscopic, Urine URINE MICROSCOPIC (MICROSCOPIC)
[2022-11-09 14:06] LABS: Appearance,Urine CLOUDY (Clear); Bilirubin,Urine Negative (Negative); Blood, Urine 1+ (Negative); Color,Urine YELLOW (Yellow); Glucose,Urine (UA) Negative (Negative); Ketones,Urine Negative (Negative); Leukocyte Esterase,Urine 1+ (Negative); Nitrate,Urine Negative (Negative); PH,Urine 5.5 (5.0-8.5); Protein,Urine Negative (Negative); Specific Gravity, Urine 1.025 (1.005-1.030); Urobilinogen,Urine 0.2 EU/dl (0.2)
[2022-11-09 14:25] LABS: Bacteria,Urine Trace /lpf; Squamous Epithelial Cell,Urine Occasional #/hpf (0-5)
[2022-11-09 14:29] LABS: Basophils # 0.1 K/mm3 (0-0.2); Basophils % 0.6 % (0.1-2.0); Eosinophils # 0.1 K/mm3 (0.0-0.4); Eosinophils % 0.7 % (0.1-12.0); Hematocrit 42.8 % (37.0-47.0); Hemoglobin 14.2 g/dL (12.2-16.2); Lymphocytes # 2.8 K/mm3 (0.7-4.5); Lymphocytes % 20.2 % (10-50); Mean Corpuscular HGB Conc 33.1 g/dL (31.8-35.4); Mean Corpuscular Hemoglobin 30.6 pg (27.0-31.2); Mean Corpuscular Volume 92.6 fl (81-99); Mean Platelet Volume 8.9 fl (7.4-10.4); Monocytes # 0.6 K/mm3 (0.1-1.0); Monocytes % 4.6 % (1.7-9.3); Neutrophils # 10.1 K/mm3 (1.8-7.8); Platelet Count 343 K/mm3 (142-424); Red Blood Count 4.62 M/mm3 (4.20-5.40); Red Cell Distribution Width 13.5 % (11.5-17.5); White Blood Count 13.6 K/mm3 (4.8-10.8)
[2022-11-09 14:36] LABS: Alanine Aminotransferase 50 U/L (12-78); Albumin Level 4.1 g/dl (3.5-5.0); Albumin/Globulin Ratio 1.1 (1.1-1.8); Alkaline Phosphatase 142 U/L (38-126); Anion Gap 12.6 mEq/L (5-15); Aspartate Amino Transferase 42 U/L (14-36); Bilirubin,Total 0.5 mg/dl (0.2-1.3); Blood Urea Nitrogen 23 mg/dl (7-17); Calcium 9.4 mg/dl (8.4-10.2); Carbon Dioxide 31 mmol/L (22.0-30.0); Chloride 96 mmol/L (98-107); Creatine Kinase 95 U/L (30-135); Estimated Glomerular Filt Rate 71 ml/min (>60); GFR (African American) 86 ML/MIN (>60); Globulin 3.9 g/dL (1.3-3.2); Glucose 102 mg/dl (74-100); Potassium 4.6 mmoL/L (3.5-5.1); Sodium 135 mmol/L (136-145); Uric Acid 4.9 mg/dl (2.5-6.2)
[2022-11-09 14:42] LABS: C-Reactive Protein 3.3 mg/L (0-4)
[2022-11-09 14:55] LABS: 25-OH Vitamin D, Total 30.5 ng/mL (30-100)
[2022-11-09 15:07] LABS: Thyroid Stimulating Hormone 1.81 uIU/mL (0.465-4.68)
[2022-11-09 15:36] LABS: Erythrocyte Sedimentation Rate 45 mm/hr (0-30)
[2022-11-09 18:23] LABS: Free T4 (Free Thyroxine) 0.89 ng/dl (0.78-2.19)
[2022-11-11 10:41] LABS: Thyroid Peroxidase Antibodies 15 IU/mL (0-34)
[2022-11-11 12:16] LABS: Anti-Cyclic Citrullinated Pept 9 units (0-19)
[2022-11-11 13:11] LABS: Anti-Centromere B Antibodies <0.2 AI (0.0-0.9); Anti-DNA (DS) Ab Qn 26 IU/mL (0-9); Anti-Jo-1 <0.2 AI (0.0-0.9); Anti-Smith Antibody <0.2 AI (0.0-0.9); Antichromatin Antibodies 0.4 AI (0.0-0.9); Antiscleroderma-70 Antibodies <0.2 AI (0.0-0.9); RNP Antibodies <0.2 AI (0.0-0.9); Sjogren's Anti-SS-A 0.4 AI (0.0-0.9); Sjogren's Anti-SS-B <0.2 AI (0.0-0.9)
[2022-11-11 14:14] LABS: Aldolase 2.9 U/L (3.3-10.3)
[2022-11-11 16:00] LABS: Anticardiolipin Ab,IgA,Qn <9 APL U/mL (0-11); Thyroglobulin Level <1.0 IU/mL (0.0-0.9)
[2022-11-12 17:17] LABS: QuantiFERON-TB Gold Plus Negative (Negative)
[2022-11-16 15:25] LABS: HLA-B27 Negative (.)
[2022-11-23 03:26] LABS: Hep A Ab, IgM NEGATIVE
[2022-11-23 03:27] LABS: Antinuclear Antibodies, IFA POSITIVE; Complement C3 183; Hepatitis B Core Antibody IgM NEGTIVE; Hepatitis B Surface Antigen NEGATIVE; Hepatitis C Antibody NON REACTIVE
[2022-11-23 19:49] LABS: APTT 26.7 sec (.); Anti-Cardiolipin Antibody IgG <10 GPL (.); Anti-Cardiolipin Antibody IgM <10 MPL (.); Beta-2 Glycoprotein I Ab, IgA <10 SAU (.); Beta-2 Glycoprotein I Ab, IgG <10 SGU (.); Beta-2 Glycoprotein I Ab, IgM <10 SMU (.); Hexagonal Phase Phospholipid 3 sec (.); INR 1.1 ratio (.); Prothrombin Time 11.2 sec (.); Thrombin Time 17.1 sec (.)
== END ==
PROVIDERS: PCP Family Medicine; Visit Provider Internal Medicine
DX: M15.9 Polyosteoarthritis, unspecified (principal); M25.50 Pain in unspecified joint; M32.9 Systemic lupus erythematosus, unspecified; R53.83 Other fatigue; R70.0 Elevated erythrocyte sedimentation rate; E66.9 Obesity, unspecified; Z68.41 Body mass index [BMI] 40.0-44.9, adult
CPT/HCPCS: 36415; 80053; 80074; 81001; 82085; 82306; 82550; 84439; 84443; 84550; 85025; 85597; 85598; 85610; 85613; 85651; 85670; 85730; 86038; 86140; 86146; 86147; 86161; 86200; 86225; 86235; 86256; 86376; 86480; 86800; 86812; 87086; 87088; 87186

== ENCOUNTER → 2022-11-16 13:25 | Outpatient (CLI) | payer MEDICARE, OTHER, SELFPAY ==
[2022-11-16 14:52] LABS: Anion Gap 14.8 mEq/L (5-15); Blood Urea Nitrogen 24 mg/dl (7-17); Calcium 9.3 mg/dl (8.4-10.2); Carbon Dioxide 24 mmol/L (22.0-30.0); Chloride 98 mmol/L (98-107); Estimated Glomerular Filt Rate 62 ml/min (>60); GFR (African American) 75 ML/MIN (>60); Glucose 88 mg/dl (74-100); Potassium 4.8 mmoL/L (3.5-5.1); Sodium 132 mmol/L (136-145)
== END ==
PROVIDERS: PCP Family Medicine; Visit Provider Internal Medicine Cardiovascular Disease
DX: I10 Essential (primary) hypertension; I25.10 Atherosclerotic heart disease of native coronary artery without angina pectoris; E78.49 Other hyperlipidemia
CPT/HCPCS: 36415; 80048

== ENCOUNTER → 2023-02-09 13:32 | Outpatient (CLI) | payer MEDICARE, OTHER, SELFPAY ==
[2023-02-09 13:46] LABS: Microscopic, Urine URINE MICROSCOPIC (MICROSCOPIC)
[2023-02-09 14:04] LABS: Basophils # 0.1 K/mm3 (0-0.2); Basophils % 0.5 % (0.1-2.0); Eosinophils # 0.3 K/mm3 (0.0-0.4); Eosinophils % 2.5 % (0.1-12.0); Hematocrit 42.3 % (37.0-47.0); Hemoglobin 14.1 g/dL (12.2-16.2); Lymphocytes # 2.6 K/mm3 (0.7-4.5); Lymphocytes % 26.6 % (10-50); Mean Corpuscular HGB Conc 33.4 g/dL (31.8-35.4); Mean Corpuscular Hemoglobin 30.4 pg (27.0-31.2); Mean Corpuscular Volume 90.8 fl (81-99); Mean Platelet Volume 8.8 fl (7.4-10.4); Monocytes # 0.7 K/mm3 (0.1-1.0); Monocytes % 6.8 % (1.7-9.3); Neutrophils # 6.3 K/mm3 (1.8-7.8); Neutrophils % 63.6 % (37.0-80.0); Platelet Count 275 K/mm3 (142-424); Red Blood Count 4.66 M/mm3 (4.20-5.40); White Blood Count 9.8 K/mm3 (4.8-10.8)
[2023-02-09 14:30] LABS: Alanine Aminotransferase 32 U/L (12-78); Albumin Level 3.9 g/dl (3.5-5.0); Alkaline Phosphatase 160 U/L (38-126); Anion Gap 15.2 mEq/L (5-15); Aspartate Amino Transferase 36 U/L (14-36); Bilirubin,Total 0.4 mg/dl (0.2-1.3); Blood Urea Nitrogen 17 mg/dl (7-17); Calcium 9.1 mg/dl (8.4-10.2); Carbon Dioxide 30 mmol/L (22.0-30.0); Chloride 97 mmol/L (98-107); Creatine Kinase 129 U/L (30-135); Estimated Glomerular Filt Rate 55 ml/min (>60); GFR (African American) 66 ML/MIN (>60); Globulin 3.8 g/dL (1.3-3.2); Glucose 97 mg/dl (74-100); Potassium 4.2 mmoL/L (3.5-5.1); Sodium 138 mmol/L (136-145); Total Protein,Serum 7.7 g/dl (6.3-8.2)
[2023-02-09 15:27] LABS: Appearance,Urine CLEAR (Clear); Bilirubin,Urine Negative (Negative); Blood, Urine TRACE-I (Negative); Color,Urine YELLOW (Yellow); Glucose,Urine (UA) Negative (Negative); Ketones,Urine Negative (Negative); Leukocyte Esterase,Urine 1+ (Negative); Nitrate,Urine Negative (Negative); Protein,Urine Negative (Negative); Specific Gravity, Urine 1.025 (1.005-1.030); Urobilinogen,Urine 0.2 EU/dl (0.2)
[2023-02-09 15:43] LABS: RBC,Urine Occasional #/hpf (0-3)
[2023-02-09 15:44] LABS: Bacteria,Urine Trace /lpf
[2023-02-11 19:35] LABS: Anti-DNA (DS) Ab Qn 20 IU/mL (0-9); Complement C3 167 mg/dL (82-167)
== END ==
PROVIDERS: PCP Family Medicine; Visit Provider Internal Medicine
DX: M32.9 Systemic lupus erythematosus, unspecified (principal); M15.9 Polyosteoarthritis, unspecified; Z79.899 Other long term (current) drug therapy
CPT/HCPCS: 80053; 81001; 82550; 85025; 86161; 86225; 87086

== ENCOUNTER → 2023-02-25 11:57 | Outpatient (CLI) | payer MEDICARE, OTHER, SELFPAY ==
--- NOTE | 2023-02-25 | XR_ITS ---
PROCEDURE INFORMATION: Exam: XR Left Knee Exam date and time: 02/25/2023 12:08 PM Age: 68 years old Clinical indication: Pain; Lower leg; Left; Additional info: Left knee pain. Patient states knee gives out on her. TECHNIQUE: Imaging protocol: Radiologic exam of the left knee. Views: 3 views. COMPARISON: No relevant prior studies available. FINDINGS: Bones/joints: No visible fracture or dislocation. There are mild degenerative changes of the knee joint, predominantly involving the medial joint compartment. There is chondrocalcinosis, consistent with calcium pyrophosphate deposition arthropathy. No joint effusion Soft tissues: Normal. IMPRESSION: No visible fracture or dislocation.
== END ==
PROVIDERS: PCP Family Medicine; Visit Provider Physician Assistant
DX: M25.562 Pain in left knee (principal)
CPT/HCPCS: 73562

== ENCOUNTER → 2023-06-01 09:21 | Outpatient (CLI) | payer MEDICARE, OTHER, SELFPAY ==
[2023-06-01 09:45] LABS: Microscopic, Urine URINE MICROSCOPIC (MICROSCOPIC)
[2023-06-01 10:09] LABS: Basophils # 0.1 K/mm3 (0-0.2); Basophils % 0.6 % (0.1-2.0); Eosinophils # 0.4 K/mm3 (0.0-0.4); Eosinophils % 4.3 % (0.1-12.0); Hematocrit 41.5 % (37.0-47.0); Hemoglobin 14.2 g/dL (12.2-16.2); Lymphocytes # 2.7 K/mm3 (0.7-4.5); Lymphocytes % 26.9 % (10-50); Mean Corpuscular HGB Conc 34.1 g/dL (31.8-35.4); Mean Corpuscular Hemoglobin 32.5 pg (27.0-31.2); Mean Corpuscular Volume 95.3 fl (81-99); Mean Platelet Volume 8.5 fl (7.4-10.4); Monocytes # 0.7 K/mm3 (0.1-1.0); Monocytes % 6.9 % (1.7-9.3); Neutrophils # 6.2 K/mm3 (1.8-7.8); Neutrophils % 61.4 % (37.0-80.0); Platelet Count 235 K/mm3 (142-424); Red Blood Count 4.36 M/mm3 (4.20-5.40); Red Cell Distribution Width 13.5 % (11.5-17.5)
[2023-06-01 10:13] LABS: Appearance,Urine SL CLOUDY (Clear); Bilirubin,Urine Negative (Negative); Blood, Urine TRACE-I (Negative); Color,Urine YELLOW (Yellow); Glucose,Urine (UA) Negative (Negative); Ketones,Urine Negative (Negative); Leukocyte Esterase,Urine 3+ (Negative); Nitrate,Urine Negative (Negative); Protein,Urine Negative (Negative); Specific Gravity, Urine >= 1.030 (1.005-1.030); Urobilinogen,Urine 0.2 EU/dl (0.2)
[2023-06-01 10:26] LABS: Bacteria,Urine 3+ /lpf
[2023-06-01 10:30] LABS: Alanine Aminotransferase 32 U/L (12-78); Albumin Level 3.9 g/dl (3.5-5.0); Alkaline Phosphatase 130 U/L (38-126); Anion Gap 13.7 mEq/L (5-15); Aspartate Amino Transferase 35 U/L (14-36); Bilirubin,Total 0.3 mg/dl (0.2-1.3); Blood Urea Nitrogen 24 mg/dl (7-17); Calcium 9.5 mg/dl (8.4-10.2); Carbon Dioxide 30 mmol/L (22.0-30.0); Chloride 100 mmol/L (98-107); Creatine Kinase 120 U/L (30-135); Estimated Glomerular Filt Rate 62 ml/min (>60); GFR (African American) 75 ML/MIN (>60); Globulin 3.8 g/dL (1.3-3.2); Glucose 101 mg/dl (74-100); Potassium 4.7 mmoL/L (3.5-5.1); Sodium 139 mmol/L (136-145); Total Protein,Serum 7.7 g/dl (6.3-8.2)
[2023-06-02 13:08] LABS: Complement C3 159 mg/dL (82-167)
[2023-06-03 09:47] LABS: dsDNA AB Crithidia Negative (Negative)
== END ==
PROVIDERS: PCP Family Medicine; Visit Provider Internal Medicine
DX: M32.9 Systemic lupus erythematosus, unspecified (principal); M15.9 Polyosteoarthritis, unspecified; Z79.899 Other long term (current) drug therapy
CPT/HCPCS: 36415; 80053; 81001; 82550; 85025; 86161; 86225; 87086

== ENCOUNTER 2023-12-11 10:05 | Outpatient (CLI) | payer MEDICARE, OTHER, SELFPAY ==
[2023-12-11 11:42] LABS: Chloride 103 mmol/L (98-107); Potassium 4.2 mmoL/L (3.5-5.1); Sodium 136 mmol/L (136-145)
[2023-12-11 11:45] LABS: Alanine Aminotransferase 29 U/L (12-78); Albumin Level 3.7 g/dl (3.5-5.0); Albumin/Globulin Ratio 1.1 (1.1-1.8); Alkaline Phosphatase 112 U/L (38-126); Anion Gap 10.2 mEq/L (5-15); Aspartate Amino Transferase 40 U/L (14-36); Bilirubin,Total 0.9 mg/dl (0.2-1.3); Blood Urea Nitrogen 23 mg/dl (7-17); Calcium 9.7 mg/dl (8.4-10.2); Carbon Dioxide 27 mmol/L (22.0-30.0); Creatine Kinase 192 U/L (30-135); Estimated Glomerular Filt Rate 62 ml/min (>60); GFR (African American) 75 ML/MIN (>60); Globulin 3.4 g/dL (1.3-3.2); Glucose 103 mg/dl (74-100); Total Protein,Serum 7.1 g/dl (6.3-8.2)
[2023-12-11 15:15] LABS: Microscopic, Urine URINE MICROSCOPIC (MICROSCOPIC)
[2023-12-11 15:42] LABS: Basophils # 0.1 K/mm3 (0-0.2); Basophils % 0.8 % (0.1-2.0); Eosinophils # 0.4 K/mm3 (0.0-0.4); Eosinophils % 3.3 % (0.1-12.0); Hematocrit 39.1 % (37.0-47.0); Hemoglobin 13.2 g/dL (12.2-16.2); Lymphocytes # 3.2 K/mm3 (0.7-4.5); Lymphocytes % 27.5 % (10-50); Mean Corpuscular HGB Conc 33.7 g/dL (31.8-35.4); Mean Platelet Volume 8.6 fl (7.4-10.4); Monocytes # 0.7 K/mm3 (0.1-1.0); Neutrophils # 7.3 K/mm3 (1.8-7.8); Neutrophils % 62.4 % (37.0-80.0); Platelet Count 274 K/mm3 (142-424); Red Blood Count 4.12 M/mm3 (4.20-5.40); Red Cell Distribution Width 13.8 % (11.5-17.5); White Blood Count 11.7 K/mm3 (4.8-10.8)
[2023-12-11 16:00] LABS: Appearance,Urine CLEAR (Clear); Bilirubin,Urine Negative (Negative); Blood, Urine Negative (Negative); Color,Urine YELLOW (Yellow); Glucose,Urine (UA) Negative (Negative); Ketones,Urine Negative (Negative); Leukocyte Esterase,Urine 2+ (Negative); Nitrate,Urine Negative (Negative); Protein,Urine Negative (Negative); Specific Gravity, Urine >= 1.030 (1.005-1.030); Urobilinogen,Urine 0.2 EU/dl (0.2)
[2023-12-11 17:33] LABS: Bacteria,Urine Trace /lpf; RBC,Urine Occasional #/hpf (0-3)
[2023-12-12 08:33] LABS: Complement C3 156 mg/dL (82-167)
[2023-12-12 10:14] LABS: Anti-DNA (DS) Ab Qn 15 IU/mL (0-9)
== END 2023-12-11 23:59 | disposition home or self-care (01) ==
LOC: LAB 10:06
PROVIDERS: PCP Family Medicine; Visit Provider Internal Medicine
DX: M32.9 Systemic lupus erythematosus, unspecified (principal); M15.9 Polyosteoarthritis, unspecified; Z79.899 Other long term (current) drug therapy; B96.89 Other specified bacterial agents as the cause of diseases classified elsewhere
CPT/HCPCS: 36415; 80053; 81001; 82550; 85025; 86161; 86225; 87086

== ENCOUNTER 2024-01-08 09:19 | Outpatient (CLI) | payer MEDICARE, OTHER, SELFPAY ==
--- NOTE | 2024-01-08 09:39 | XR_ITS ---
FINAL REPORT CLINICAL HISTORY: POSTMENOPAUSAL FINDINGS: Using L1-4, the bone mineral density of the spine is 1.417 g/cm2, corresponding to T-score of 3.4. Using the left hip, the bone mineral density of the femoral neck is 1.097 g/cm2, corresponding to a T-score of 2.2. Using the distal third, the bone mineral density of the right forearm is 0.704 g/cm2, corresponding to a T-score of 0.2. IMPRESSION: Normal bone mineral density of the lumbar spine, right forearm, and left hip. NOTE: T-score: Standard deviation compared with peak bone mass of young adult mean. *Following the recommendations of the International Society of Bone densitometry, classification of hip BMD is based on the lower of two T-scores; total hip or femoral neck. Reviewed, Interpreted and Dictated by Vipul Gallo MD Transcribed by Fallon Oseguera Authenticated and [facility]
== END 2024-01-08 23:59 | disposition home or self-care (01) ==
LOC: RAD 09:19
PROVIDERS: PCP Family Medicine; Visit Provider Family Medicine
DX: Z78.0 Asymptomatic menopausal state (principal)
CPT/HCPCS: 77080

== ENCOUNTER 2024-02-20 14:43 | Outpatient (CLI) | payer MEDICARE, OTHER, SELFPAY ==
--- NOTE | 2024-02-20 14:49 | MR_ITS ---
FINAL REPORT CLINICAL HISTORY: LUMBAR RADICULOPATHY low back and right hip pain COMPARISON: February 19, 2020 FINDINGS: Multiplanar MR imaging of the lumbar spine was performed without contrast. On the sagittal T2-weighted images, disc degeneration is seen at multiple levels. There is mild retrolisthesis of L3 on L4 and L4 and L5 that is stable. Mild endplate changes are noted at multiple levels. There is no evidence of fracture. A hemangioma is noted in the L3 vertebral body. The conus has an unremarkable appearance. L1-2: An annular bulge is present. Vertebral osteophytes and bilateral facet arthropathy are present. There is mild left neural foraminal narrowing. L2-3: An annular bulge is present. Vertebral osteophytes and bilateral facet arthropathy are present. There is no significant canal stenosis or neural foraminal narrowing. L3-4: An annular bulge is present. Vertebral osteophytes and bilateral facet arthropathy are present. There is been interval improvement in the small central disc protrusion that was present on the prior exam. Moderate right and mild left neural foraminal narrowing is seen. L4-5: An annular bulge is present. Vertebral osteophytes and bilateral facet arthropathy are present. Severe right and moderate left neural foraminal narrowing is seen. L5-S1: There is partial sacralization of L5. There is no significant canal stenosis or neural foraminal narrowing. IMPRESSION: Improved small central L3-4 disc protrusion. Multilevel degenerative disc disease and spondylosis with bilateral neural foraminal narrowing, similar to the prior examination. No new abnormality identified. Authenticated and ERN
== END 2024-02-20 23:59 | disposition home or self-care (01) ==
LOC: RAD 14:44
PROVIDERS: PCP Family Medicine; Visit Provider Nurse Practitioner
DX: M54.16 Radiculopathy, lumbar region (principal)
CPT/HCPCS: 72148

== ENCOUNTER 2024-05-31 13:58 | Outpatient (POV) | payer MEDICARE, OTHER, SELFPAY ==
[2024-05-31 14:32] VITALS: BP 149/82; PULSE 69; RESP 16; TEMP 36.6; O2SAT 97; BMI 43.0
--- NOTE | 2024-05-31 15:49 | EXP.PAIN.OV ---
HPI Data of Consult Patient: new to practice Consult date: 05/31/24 Requesting Physician: Jhon Reddy MD Primary Care Provider: Ashley Jain MD Consult Narrative Reason for consult: Referral from Dr. Hightower low back pain and leg pain History of present illness: Ms. Pierson is a 69 year old female who is referred by Dr. Hightower with increasing low back pain and leg pain. We previously saw her 4 to 5 years ago. Patient has recently been referred by Dr. Hightower with recommendations of L3-L4 epidural steroid injection versus spinal cord stimulation. After review of her MRI patient does have significant spinal stenosis at L3-L4 and L4-L5. There is facet hypertrophy and ligamentum flavum hypertrophy. We will plan on a interlaminar L3-L4 lumbar epidural steroid injection. Will do this here in the [facility]. I do believe she may be candidate for minimally invasive lumbar decompression. Will inject dye to assess levels of stenosis and candidacy for minimally invasive lumbar decompression. CC: Jhon Reddy MD [facility] Disclaimer: The information contained in this section may have been updated after the patient was seen, as this information can be updated by other users. Medical History Lupus 03/28/2023, new diagnosis. Active follow-up with [facility] in [place], currently on Plaquenil. Kidney stone HTN (hypertension), benign GERD (gastroesophageal reflux disease) Cancer Atrial fibrillation Asthma Arrhythmia Coronary artery disease Dyspnea Hyperlipidemia Surgical History H/O tubal ligation Hx of colonoscopy History of cholecystectomy History of total right hip replacement H/O arthroscopy of left knee Family History Other Cancer Hyperlipidemia Hypertension Social History (Updated 05/31/24 @ 14:33 by Indigo Castillo RN) Smoking Status: Never smoker second hand exposure: No alcohol intake: never substance use type: denies use current occupational status: other Travel in the last 8 weeks: None household members: other housing: house current occupational exposures/hazards: No caffeine: Yes Review of Systems Review of Systems Review of systems:: pertinent systems reviewed and negative unless documented below Meds Home Medications and Allergies Home Medications ?Medication ?Instructions ?Recorded ?Confirmed ?Type montelukast 10 mg tablet 10 mg PO QHS PRN allergies 30 days 05/08/18 05/31/24 History #30 tabs aspirin 81 mg tablet,delayed 81 mg PO DAILY thinner 05/28/19 05/31/24 History release (Aspir-Low) esomeprazole magnesium 20 mg 20 mg PO DAILY 12/16/20 05/31/24 History capsule,delayed release (Nexium) allopurinol 100 mg tablet 100 mg PO DAILY 01/27/21 05/31/24 History primidone 50 mg tablet 50 mg PO ONCE 03/10/21 05/31/24 History potassium chloride 10 mEq 10 meq PO DAILY 03/29/22 05/31/24 History tablet,extended release (Klor-Con) spironolactone 25 mg tablet See Rx Instructions .Route 01/02/23 05/31/24 Rx .COMPLEX #90 tabs hydroxychloroquine 200 mg tablet 200 mg PO DAILY 03/28/23 05/31/24 History triamterene 37.5 1 tab PO DAILY 04/03/23 05/31/24 History mg-hydrochlorothiazide 25 mg tablet losartan 50 mg tablet See Rx Instructions .Route 05/22/23 05/31/24 Rx .COMPLEX #90 tabs atorvastatin 40 mg tablet See Rx Instructions .Route 07/11/23 05/31/24 Rx .COMPLEX #90 tabs gabapentin 300 mg capsule 300 mg PO BID 11/15/23 05/31/24 History tramadol 50 mg tablet 50 mg PO TID PRN . 11/15/23 05/31/24 History metoprolol succinate 50 mg See Rx Instructions .Route 12/25/23 05/31/24 Rx tablet,extended release 24 hr .COMPLEX #90 tabs terbinafine HCl 250 mg tablet 250 mg PO DAILY 03/27/24 05/31/24 History New Prescriptions to Start Prescriptions: Allergies Allergy/AdvReac Type Severity Reaction Status Date / Time codeine Allergy Intermediate Nausea Verified 05/31/24 14:37 naproxen [From Aleve] Allergy Other Verified 05/31/24 14:37 Objective Vital signs: Temp Pulse Resp BP Pulse Ox O2 Del Method 97.8 F 69 16 149/82 H 97 Room Air 05/31/24 14:32 05/31/24 14:32 05/31/24 14:32 05/31/24 14:32 05/31/24 14:32 05/31/24 14:32 Assessment and Plan *Assessment and plan (1) Spondylolisthesis, lumbar region: Status: Chronic Category: Medical Code(s): M43.16 - Spondylolisthesis, lumbar region (2) Lumbar radiculopathy: Status: Chronic Category: Medical Code(s): M54.16 - Radiculopathy, lumbar region (3) Degenerative lumbar spinal stenosis: Status: Acute Category: Medical Code(s): M48.061 - Spinal stenosis, lumbar region without neurogenic claudication (4) Neurogenic claudication: Status: Acute Category: Medical Code(s): R29.818 - Other symptoms and signs involving the nervous system Plan We will plan on a interlaminar L3-L4 lumbar epidural steroid injection with epidurogram to assess levels of stenosis and candidacy for minimally invasive lumbar decompression. Patient does do a home exercise program. This was recommended by her neurosurgeon.
== END 2024-05-31 15:37 | disposition home or self-care (01) ==
LOC: SC.PAIN 13:59
PROVIDERS: PCP Family Medicine; Visit Provider Anesthesiology
DX: M43.16 Spondylolisthesis, lumbar region (principal); M54.16 Radiculopathy, lumbar region; M48.062 Spinal stenosis, lumbar region with neurogenic claudication; Z96.641 Presence of right artificial hip joint; Z79.899 Other long term (current) drug therapy
CPT/HCPCS: 99202; G0463

== ENCOUNTER 2024-06-06 13:41 | Outpatient (CLI) | payer MEDICARE, OTHER, SELFPAY ==
--- OUTSIDE RECORDS SUMMARY | 2024-06-06 13:44 | XMS_ITS ---
Author Organization [facility] Address [address] [place] [phone] Care Team Providers Care Benefits Representative Name Role Phone Yannick Jain Primary Care Provider [phone] ALLERGIES Allergen (clinical drug ingredient) Drug/Non Drug Allergy documented on EMR Reaction Allergy Type Onset Date Status naproxen Aleve Unknown Drug Allergy Active acetaminophen / oxycodone Percocet Unknown Drug Allergy Active codeine Codeine sick to stomach Drug Allergy A ctive RESULTS Component Value Reference Range Notes P-Comprehensive Metabolic Pa alysha (CMP) Reviewed date:03/27/2024 09:46:32 AM Interpretation:alk phos 146 Performing Lab: Notes/Report: Test performed by [employer], [facility] , [address], [place] [address] Jung Jc MD, Radiology Therapist CLIA: [id number] Sodium 135 135-145 mmol/L Potassium 4.7 3.5-5.3 [...] mg/dL REASON FOR VISIT 1 month f/u MEDICATIONS Medication SIG (Take, Route, Frequency, Duration) Notes Start Date End Date Status traMADol HCl 50 MG 1 tablet as needed Orally three times a day as needed 07/10/2023 Active Gabapentin 300 MG 1 cap(s) orally 2 times a day 12/22/2023 Active Allopurinol 100 MG 1 tab(s) orally once a day for 90 days Active Spironolactone 25 MG 1 tab(s) orally onc e daily for 90 days Active Triamterene-HCTZ 37.5-25 MG 1 tab(s) ora lly once a day for 90 days Active Primidone 50 MG 1 tab(s) orally twic e a day for 90 days Active Atorvastatin Calcium 40 MG 1 tab(s) oral ly once a day Active NexIUM 24HR 20 MG 1 cap(s) orally once a day (in the morning) Active Potassium Chloride ER 10 MEQ TAKE 1 BY M OUTH ONCE DAILY for 90 days Active Montelukast Sodium 10 MG 1 tab(s) orally once a day 05/27/2017 Active Metoprolol Succinate ER 50 MG 1 tab(s) o rally once a day for 30 day(s) Active Losartan Potassium 50 MG 1 tablet Orally Once a day for 30 day(s) Active Aspirin Adult Low Dose 81 MG 1 tab(s) or ally once a day Active Terbinafine HCl 250 MG 1 tablet Orally O nce a day for 42 days 02/19/2024 Active Hydroxychloroquine Sulfate 2 00 MG 1 tab twice daily Active VITAL SIGNS Weight 255.6 lbs 03/21/2024 Blood pressure systolic 120 mm Hg 03/21/20 24 Blood pressure diastolic 70 mm Hg 024 Heart Rate 62 /min 03/21/2024 Height 65.25 in 03/21/2024 BMI 42.20 kg/m2 03/21/2024 Encounters Encounter Location Date Provider Diagnosis [facility] [address] [facility] [address] [place], [place] [phone] 03/21/2024 Yannick Jain Onychomycosis of toenail B35.1 ASSESSMENTS Encounter Date Diagnosis Assessment Notes Treatment Notes Treatment Clinical Notes 03/21/2024 Onychomycosis of toenail (ICD-10 - B35.1) PLAN OF TREATMENT Next Appt Details Follow Up: 6 Weeks, Reason: Provider Name:Yannick Mota Cheryl er, 08/19/2024 01:15:00 PM, [address] [facility] [address] [facility], [address], [place], [place], [phone], Progress Notes * Examination Category Sub-Category Detail Notes General Examination HEENT: unremarkable Heart: RSR Lungs: [...]
--- OUTSIDE RECORDS SUMMARY | 2024-06-06 13:44 | XMS_ITS ---
Author Organization [facility] Address [address] [facility] [facility] [address] [facility] [address] [place] [phone] Care Team Providers Care Agency Director Name Role Phone Yannick Jain Primary Care Provider REASON FOR VISIT Test results* Encounters Encounter Location Date Provider Diagnosis [facility] [address] [facility] [address] [place] [id number] 03/27/2024 Yannick Jain PLAN OF TREATMENT Next Appt Details Provider Name:Yannick Luna er, 08/19/2024 01:15:00 PM, [address] [facility] [address] [facility], [address], [place], [phone],
--- OUTSIDE RECORDS SUMMARY | 2024-06-06 13:44 | XMS_ITS ---
Author Organization [facility] Address [address] [facility] [address] [facility] [address] [place] [phone] Care Team Providers Care Roll Contour Grinder Name Role Phone Yannick Jain Primary Care Provider [phone] ALLERGIES Allergen (clinical drug ingredient) Drug/Non Drug Allergy documented on EMR Reaction Allergy Type Onset Date Status naproxen Aleve Unknown Drug Allergy Active acetaminophen / oxycodone Percocet Unknown Drug Allergy Active codeine Codeine sick to stomach Drug Allergy A ctive REASON FOR VISIT 6 week f/u MEDICATIONS Medication SIG (Take, Route, Frequency, Duration) Notes Start Date End Date Status NexIUM 24HR 20 MG 1 cap(s) orally once a day (in the morning) Active Hydroxychloroquine Sulfate 2 00 MG 1 tab twice daily Active Losartan Potassium 50 MG 1 tablet Orally Once a day for 30 day(s) Active Metoprolol Succinate ER 50 MG 1 tab(s) o rally once a day for 30 day(s) Active Aspirin Adult Low Dose 81 MG 1 tab(s) or ally once a day Active Gabapentin 300 MG 1 cap(s) orally 2 times a day 12/22/2023 Active traMADol HCl 50 MG 1 tablet as needed Orally three times a day as needed 07/10/2023 Active Potassium Chloride ER 10 MEQ Take 1 tabl et by mouth once daily for 90 Active Spironolactone 25 MG 1 tab(s) orally onc e daily for 90 days Active Atorvastatin Calcium 40 MG 1 tab(s) oral ly once a day Active Montelukast Sodium 10 MG 1 tab(s) orally once a day 05/27/2017 Active Primidone 50 MG 1 tab(s) orally twic e a day for 90 days Active Triamterene-HCTZ 37.5-25 MG 1 tab(s) ora lly once a day for 90 days Active Allopurinol 100 MG 1 tab(s) orally once a day for 90 days Active VITAL SIGNS Weight 255.6 lbs 05/20/2024 Blood pressure systolic 122 mm Hg 05/20/20 24 Blood pressure diastolic 70 mm Hg 024 Heart Rate 62 /min 05/20/2024 Height 65.25 in 05/20/2024 BMI 42.20 kg/m2 05/20/2024 Encounters Encounter Location Date Provider Diagnosis [facility] [address] [facility] [address] [facility] [address] [place] [phone] 05/20/2024 Yannick Jain Essential hypertensi on I10 ; Onychomycosis B35.1 ; Heart palpitations R00.2 and Lumbago with sciatica, left side M54.42 ASSESSMENTS Encounter Date Diagnosis Assessment Notes Treatment Notes Treatment Clinical Notes 05/20/2024 Essential hypertension (ICD-10 - I10) 05/20/2024 Onychomycosis (ICD-1 0 - B35.1) 05/20/2024 Heart palpitations (ICD-10 - R00.2) 05/20/2024 Lumbago with sciatica, left side (ICD-10 - M54.42) PLAN OF TREATMENT Next Appt Details Follow Up: 3 Months, Reason: Provider Name:Yannick Luna er, 08/19/2024 01:15:00 PM, [address] [facility] [address] [facility], [address], [place], [phone], Progress Notes * Examination Category Sub-Category Detail [...]
--- OUTSIDE RECORDS SUMMARY | 2024-06-06 13:45 | XMS_ITS | Patient Health Record ---
Author Organization [facility] Address [address] [facility] [address] [facility] [address] [facility] [place] [id number] Care Team Providers Care Security Director Name Role Phone Yannick Jain Primary Care Provider ALLERGIES Allergen (clinical drug ingredient) Drug/Non Drug [...] 146 Performing Lab: Notes/Report: Test performed by [facility] [address] [place] [address] , [address], [place] [address] Jung Jc MD, Vb Developer CLIA: [id number] Sodium 135 135-145 mmol/L Potassium 4.7 3.5-5.3 [...] <0.2-1.2 mg/dL A/G Ratio 1.1 1.1-2.5 mg/dL Bone density Reviewed date:01/17/2024 12:50:14 PM Interpretation:Normal Performing Lab: Notes/Report: Normal Bone density P-Sed Rate (ESR) Reviewed date:10/10/2023 08:25:15 AM Interpretation:Esr 40 Performing Lab: Notes/Report: Test performed by [email or web address] [address] , [place] [address] Jung Jc MD, Vb Developer CLIA: [id number] Erythrocyte Sedimentation Ra te (ESR), Automated 40 <31 mm/hr P-Comprehensive Metabolic Pa alysha (CMP) Reviewed date:10/10/2023 08:25:15 AM Interpretation:Alk Phos 134 Performing Lab: Notes/Report: Test performed by [facility] [address] [place] [address] , [address], [place] [address] Jung Jc MD, Vb Developer CLIA: [id number] Sodium 137 135-145 mEq/L Potassium 4.6 3.5-5.3 mEq/L Chloride 98 97-108 mEq/L CO2 28 22-32 mEq/L Glucose 94 65-99 mg/dL BUN 19 8-23 mg/dL Creatinine 0.99 0.50-1.00 mg/dL Calcium 10.0 8.6-10.4 mg/dL eGFR by Creatinine 61 >59 mL/min/1.73m2 Protein 7.9 6.0-8.3 g/dL Albumin 4.4 3.5-5.3 g/dL Alkaline Phosphatase 134 35-121 IU/L ALT (SGPT) 18 <5-47 IU/L AST (SGOT) 24 <5-40 IU/L Bilirubin, Total 0.5 <0.2-1.2 mg/dL A/G Ratio 1.3 1.1-2.5 mg/dL MEDICATIONS Medication SIG (Take, Route, Frequency, Duration) Notes Start Date End Date Status Allopurinol 100 MG 1 tab(s) orally once a day for 90 days Active NexIUM 24HR 20 MG 1 cap(s) orally once a day (in the morning) Active Atorvastatin Calcium 40 MG 1 tab(s) oral ly once a day Active Montelukast Sodium 10 MG 1 tab(s) orally once a day 05/27/2017 Active Primidone 50 MG 1 tab(s) orally twic e a day for 90 days Active Hydroxychloroquine Sulfate 2 00 MG 1 tab twice daily Active Gabapentin 300 MG 1 cap(s) orally 2 times a day 12/22/2023 Active Losartan Potassium 50 MG 1 tablet Orally Once a day for 30 day(s) Active traMADol HCl 50 MG 1 tablet as needed Orally three times a day as needed 07/10/2023 Active Metoprolol Succinate ER 50 MG 1 tab(s) o rally once a day for 30 day(s) Active Aspirin Adult Low Dose 81 MG 1 tab(s) or ally once a day Active Potassium Chloride ER 10 MEQ Take 1 tabl et by mouth once daily for 90 Active Triamterene-HCTZ 37.5-25 MG 1 tab(s) ora lly once a day for 90 days Active Spironolactone 25 MG 1 tab(s) orally onc e daily for 90 days Active IMMUNIZATIONS Vaccine Route Administration Date Status Comme nts Tetanus Tdap-Adacel (over 7yrs) IM Intramuscular 12/24/2018 Administered Shingrix Unknown 10/17/2018 Administered Shingrix Unknown 12/26/2018 Administered Prevnar (PCV13) IM Intramuscular 10/15/2018 Administered PNEUMOVAX 23 VACCINE IM Intramuscular 10/13/2016 Administered Fluzone High Dose (65yr and older) IM Intramuscular 06/11/2018 Administered Fluzone High Dose (65yr and older) IM Intramuscular 04/29/2019 Administered Fluzone High Dose (65yr and older) IM Intramuscular 05/25/2020 Administered Fluzone High Dose (65yr and older) IM Intramuscular 08/23/2021 Administered Pt tolerated w ell SOCIAL HISTORY Sex Assigned At : Social History Observation Description Sex Assigned At Unknown PROBLEMS Problem Type ICD Code Onset Dates Problem Status W/U Status Risk SNOMED Code Notes Problem Essential hypertensi on (I10) Active confirmed 50720992 Problem Dyspepsia (K30) Active confirmed 453927 009 Problem Degenerative disc disease, lumbar (M51.36) Active confirmed 18906794 Problem Heart palpitations (R00.2) Active confirmed 40836821 Problem Falls frequently (R29.6) Active confirmed 892757103 Problem Other chronic pain (G89.29) Active confirmed 50587584 Problem Lumbago with sciatic a, left side (M54.42) Active confirmed 326724923 Problem Onychomycosis (B35.1) Active confirmed 747968189 Problem Pain in left shoulde r (M25.512) Active confirmed 71294473560539307 Problem Other chronic pain (G89.29) Active confirmed 51997249 Problem Pain in left knee (M25.562) Active confirmed 0121810080 Problem Chronic GERD (K21.9) Active confirmed 2 97664927 Problem JOSE (obstructive sle ep apnea) (G47.33) Active confirmed 89879064 Problem Ectopic atrial beats (I49.1) Active confirmed 427208581 Problem Trigger finger of right thumb (M65.311) Active confirmed 08937333507579 5 Problem VALENTINA positive (R76.8) Active confirmed 1 20381033 Problem Sleep disturbance, unspecified (G47.9) Active confirmed 49165605 Problem Pure hypercholesterolemia (E78.00) Active confirmed 551736389 Problem Dupuytren's contracture (M72.0) Active confirmed 767103073 Problem Fibrocystic breast disease (FCBD), unspecified laterality (N60.19) Active confirmed 29308011 Problem Lumbar facet joint pain (M54.5) Active confirmed 852228204 Problem Chondrocalcinosis (M11.20) Active confirmed 576894179 Problem Injury of left rotat or cuff, subsequent encounter (S46.002D) Active confirmed 663804122623820 01 Problem Other forms of systemic lupus erythematosus, unspecified organ involvement status (M32.8) Active confirmed 47966716 VITAL SIGNS Heart Rate 62 /min 05/20/2024 Blood pressure diastolic 70 mm Hg 05/20/2024 Height 65.25 in 05/20/2024 Blood pressure systolic 122 mm Hg 05/20/2024 Weight 255.6 lbs 05/20/2024 BMI 42.20 kg/m2 05/20/2024 Encounters Encounter Location Date Provider Diagnosis [facility] [address] [facility] [address] [place], [place] [id number] 06/26/2023 Yannick Jain Degenerative disc disease, lumbar M51.36 ; VALENTINA positive R76.8 ; Other forms of systemic lupus erythematosus, unspecified organ involvement status M32.8 and Sacroiliac pain M53.3 [facility] [address] [place], [place] [id number] 07/10/2023 Yannick Jain Essential hypertensi on I10 ; Heart palpitations R00.2 ; Other chronic pain G89.29 ; Midline low back pain with left-sided sciatica, unspecified chronicity M54.42 ; Degenerative disc disease, lumbar M51.36 ; VALENTINA positive R76.8 and Other forms of systemic lupus erythematosus, unspecified organ involvement status M32.8 [facility] [address] [place], [place] [id number] 07/21/2023 Yannick Jain [facility] [address] [place] [id number] 07/21/2023 Yannick Jain [facility] [address] [place], [place] [id number] 10/09/2023 Yannick Jain Pain in left knee M2 5.562 ; Chondrocalcinosis M11.20 and VALENTINA positive R76.8 [facility] [address] [place] [id number] 10/10/2023 Yannick Jain [facility] [address] [place], [place] [id number] 11/27/2023 Yannick Jain Postmenopausal Z78.0 [facility] [address] [place] [id number] 12/22/2023 Yannick Jain Lumbago with sciatic a, left side M54.42 and Other chronic pain G89.29 [facility] [address] [place], [place] [id number] 01/22/2024 Yannick Jain Essential hypertensi on I10 ; Heart palpitations R00.2 ; Pain in left knee M25.562 ; Falls frequently R29.6 ; Other chronic pain G89.29 ; Low back pain, unspecified M54.50 and Spinal stenosis of lumbosacral region M48.07 [facility] [address] [place], [place] [id number] 02/19/2024 Yannick Jain Other chronic pain G 89.29 [facility] [address] [place], [place] [id number] 02/19/2024 Yannick Jain Degenerative disc disease, lumbar M51.36 ; Lumbar facet joint pain M54.5 ; Other chronic pain G89.29 and Onychomycosis B35.1 [facility] [address] [place], [place] [id number] 03/21/2024 Yannick Jain Onychomycosis of toe nail B35.1 [facility] [address] [place], [place] [id number] 03/27/2024 Yannick Jain [facility] [address] [place], [place] [id number] 05/20/2024 Yannick Jain Essential hypertensi on I10 ; Onychomycosis B35.1 ; Heart palpitations R00.2 and Lumbago with sciatica, left side M54.42 ASSESSMENTS Encounter Date Diagnosis Assessment Notes Treatment Notes Treatment Clinical Notes 02/19/2024 Lumbar facet joint p ain (ICD-10 - M54.5) 03/21/2024 Onychomycosis of toenail (ICD-10 - B35.1) 05/20/2024 Essential hypertensi on (ICD-10 - I10) 05/20/2024 Onychomycosis (ICD-1 0 - B35.1) 06/26/2023 Degenerative disc disease, lumbar (ICD-10 - M51.36) 06/26/2023 VALENTINA positive (ICD-10 - R76.8) 07/10/2023 Essential hypertensi on (ICD-10 - I10) continue current therapy. Discussed anti-inflammator y meds; Celebrex vs Ibuprofen. discussed episodic steroids. 07/10/2023 Heart palpitations (ICD-10 - R00.2) 10/09/2023 Chondrocalcinosis (ICD-10 - M11.20) 11/27/2023 Postmenopausal (ICD- 10 - Z78.0) 12/22/2023 Lumbago with sciatic a, left side (ICD-10 - M54.42) 12/22/2023 Other chronic pain (ICD-10 - G89.29) 01/22/2024 Essential hypertensi on (ICD-10 - I10) 01/22/2024 Heart palpitations (ICD-10 - R00.2) 10/09/2023 Pain in left knee (ICD-10 - M25.562) 02/19/2024 Other chronic pain (ICD-10 - G89.29) 02/19/2024 Degenerative disc disease, lumbar (ICD-10 - M51.36) 02/19/2024 Other chronic pain (ICD-10 - G89.29) 10/09/2023 VALENTINA positive (ICD-10 - R76.8) 01/22/2024 Pain in left knee (ICD-10 - M25.562) 07/10/2023 Other chronic pain (ICD-10 - G89.29) 06/26/2023 Other forms of syste maryellen lupus erythematosus, unspecified organ involvement status (ICD-10 - M32.8) 05/20/2024 Heart palpitations (ICD-10 - R00.2) 05/20/2024 Lumbago with sciatic a, left side (ICD-10 - M54.42) 06/26/2023 Sacroiliac pain (ICD -10 - M53.3) 07/10/2023 Midline low back erik n with left-sided sciatica, unspecified chronicity (ICD-10 - M54.42) 02/19/2024 Onychomycosis (ICD-1 0 - B35.1) 01/22/2024 Falls frequently (ICD-10 - R29.6) 01/22/2024 Other chronic pain (ICD-10 - G89.29) Encourage BID Gabapentin 07/10/2023 Degenerative disc disease, lumbar (ICD-10 - M51.36) 01/22/2024 Low back pain, unspecified (ICD-10 - M54.50) 07/10/2023 VALENTINA positive (ICD-10 - R76.8) 07/10/2023 Other forms of syste maryellen lupus erythematosus, unspecified organ involvement status (ICD-10 - M32.8) 01/22/2024 Spinal stenosis of lumbosacral region (ICD-10 - M48.07) PLAN OF TREATMENT Next Appt Details Provider Name:Yannick Luna er, 08/19/2024 01:15:00 PM, [address], [address], [place], [id number], Insurance Providers Payer Name Payer Address Payer Phone Subscriber Number Group Number Insured Name Patient Relationship to Insured Coverage Start Date Coverage End Date MEDICARE PART B [address] [address] [place] [address] [id number] RADHA MARTINEZ Self - patient is the insured [employer] MEDICARE SUPPLEMENT [address] [address] [place], [place] [id number] RADHA MARTINEZ Self - patient is the insured MEDICATIONS ADMINISTERED Medication Instructions Date of Administration Dosage Notes Dexamethasone 10/11/2007 1 mL Dexamethasone 07/04/2008 1 mL MEDICAL (GENERAL) HISTORY Medical History History ICD Code Esophageal reflux Diverticulosis hypertension 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 Gallegos, tubular gabrielle noma 01/16/[address] Reddy Hospitalization History Reason Date(Month/Year) [facility] ER- pain in right hip 12/14/08
[2024-06-06 14:28] LABS: Basophils # 0.1 K/mm3 (0-0.2); Basophils % 0.8 % (0.1-2.0); Eosinophils # 0.3 K/mm3 (0.0-0.4); Eosinophils % 3.3 % (0.1-12.0); Hematocrit 42.4 % (37.0-47.0); Hemoglobin 14.4 g/dL (12.2-16.2); Lymphocytes # 2.5 K/mm3 (0.7-4.5); Lymphocytes % 30.8 % (10-50); Mean Corpuscular Volume 94.2 fl (81-99); Mean Platelet Volume 8.4 fl (7.4-10.4); Monocytes # 0.6 K/mm3 (0.1-1.0); Neutrophils # 4.6 K/mm3 (1.8-7.8); Neutrophils % 58.1 % (37.0-80.0); Platelet Count 273 K/mm3 (142-424); Red Cell Distribution Width 13.7 % (11.5-17.5)
[2024-06-06 14:47] LABS: Alanine Aminotransferase 29 U/L (12-78); Albumin/Globulin Ratio 1.1 (1.1-1.8); Alkaline Phosphatase 107 U/L (38-126); Anion Gap 7.2 mEq/L (5-15); Aspartate Amino Transferase 34 U/L (14-36); Bilirubin,Total 0.5 mg/dl (0.2-1.3); Blood Urea Nitrogen 16 mg/dl (7-17); Calcium 9.7 mg/dl (8.4-10.2); Carbon Dioxide 28 mmol/L (22.0-30.0); Chloride 103 mmol/L (98-107); Estimated Glomerular Filt Rate 82 ml/min (>60); GFR (African American) 100 ML/MIN (>60); Globulin 3.5 g/dL (1.3-3.2); Glucose 107 mg/dl (74-100); Potassium 4.2 mmoL/L (3.5-5.1); Sodium 134 mmol/L (136-145); Total Protein,Serum 7.5 g/dl (6.3-8.2)
[2024-06-06 14:52] LABS: C-Reactive Protein 5.8 mg/L (0-4)
[2024-06-06 15:02] LABS: Erythrocyte Sedimentation Rate 17 mm/hr (0-30)
[2024-06-07 12:35] LABS: Complement C3 174 mg/dL (82-167)
[2024-06-07 16:14] LABS: Anti-DNA (DS) Ab Qn 14 IU/mL (0-9)
== END 2024-06-06 23:59 | disposition home or self-care (01) ==
LOC: LAB 13:43
PROVIDERS: PCP Family Medicine; Visit Provider Internal Medicine
DX: M32.9 Systemic lupus erythematosus, unspecified (principal); M15.0 Primary generalized (osteo)arthritis; Z79.899 Other long term (current) drug therapy
CPT/HCPCS: 36415; 80053; 85025; 85651; 86140; 86161; 86225

== ENCOUNTER 2024-07-05 14:28 | Day surgery (SDC) | payer MEDICARE, OTHER, SELFPAY ==
[2024-07-05 14:31] VITALS: BP 111/69; PULSE 78; RESP 16; TEMP 36.8; O2SAT 97; BMI 42.9
[2024-07-05] MEDS: methylPREDNISolone ACETATE 80MG/ML VIAL 80 MG (15:10)
[2024-07-05] MEDS: LIDOCAINE 1% 30ML PF VIAL 30 ML (15:10)
[2024-07-05 15:11] VITALS: BP 113/63; PULSE 71; RESP 18; O2SAT 97
[2024-07-05 15:22] VITALS: BP 113/63; PULSE 72; RESP 18; O2SAT 93
[2024-07-05 15:29] VITALS: BP 122/68; PULSE 72; RESP 16; O2SAT 93
[2024-07-05] MEDS: IOPAMIDOL-200 (41%);10ML VIAL 10 ML IV (15:30)
--- NOTE | 2024-07-05 15:37 | EXP.PAIN.PRO ---
Procedure Date: 07/05/24 Time: 15:38 Anesthesiologist:: Jhon Reddy MD Complications:: None Pre-procedure Diagnosis:: Degenerative disease of lumbar spine with lumbar radiculopathy symptoms and lumbar spinal stenosis with neurogenic claudication symptom Post-procedure Diagnosis:: Same Indications for Procedure:: This patient is a pleasant 69-year-old white female who we are treating for low back pain with lumbar radiculopathy symptoms and lumbar spinal stenosis with neurogenic claudication symptoms. She has increasing pain with walking and standing. MRI shows significant spinal stenosis at L3-L4 and L4-L5 with ligamentum flavum hypertrophy. She was referred by Dr. Hightower for interlaminar L3-L4 lumbar pleural steroid injection. Will also do an epidurogram today to see if she is a candidate for minimally invasive lumbar decompression. Procedure Details:: Informed consent was obtained and the risk and benefits of the procedure was explained to the patient. The patient was taken to the procedure room. The patient was placed prone on the procedure table. The patient was prepped and draped in sterile fashion. C-arm fluoroscopy was used to view the lumbar spine. Skin and subcutaneous tissues were anesthetized using lidocaine. I placed an 18-gauge epidural needle and advanced into the L3-L4 interspace using fluoroscopic guidance and bozd-hw-befnynpfac to air. After confirmation of needle placement in the epidural space with dye I injected 2 mL of lidocaine 1.5% with Depo-Medrol 80 mg. Patient tolerated the procedure well with no complications. Plan and Disposition:: Based on MRI and epidurogram this patient is a candidate for bilateral L3-L4 and L4-L5 minimally invasive lumbar decompression. We will seek approval for this procedure. We schedule and get approval for the mild procedure. Will also see her back in 2 to 3 weeks to assess efficacy of this injection and answer any questions about the procedure.
--- OUTSIDE RECORDS SUMMARY | 2024-07-07 14:47 | XMS_ITS ---
Author Organization [facility] Address [address] [facility] [address] [place] [phone] Care Team Providers Care Box Person Name Role Phone Yannick Jain Primary Care [...] 05/20/2024 Encounters Encounter Location Date Provider Diagnosis [facility] [address] [facility] [address] [place] [id number] 05/20/2024 Yannick Jain Essential hypertensi on I10 [...] Name:Yannick Luna er, 08/19/2024 01:15:00 PM, [address] [facility] [address], [address], [place], [phone], Progress Notes * Examination Category Sub-Category Detail [...]
--- OUTSIDE RECORDS SUMMARY | 2024-07-07 14:47 | XMS_ITS ---
Author Organization [facility] Address [address] [facility] [address] [facility] [address] [place] [phone] Care Team Providers Care Restaurant Culinary Manager Name Role Phone Yannick Jain Primary Care Provider REASON FOR VISIT Test results* Encounters Encounter Location Date Provider Diagnosis [facility] [address] [facility] [address] [place] [id number] 03/27/2024 Yannick Jain PLAN OF TREATMENT Next Appt Details Provider Name:Yannick Luna er, 08/19/2024 01:15:00 PM, [address] [facility] [address] [facility], [address], [place], [phone],
--- OUTSIDE RECORDS SUMMARY | 2024-07-07 14:47 | XMS_ITS ---
Author Organization [facility] Address [address] [place] [phone] Care Team Providers Care Blanket Binder Name Role Phone Yannick Jain Primary Care Provider [phone] ALLERGIES Allergen (clinical drug ingredient) Drug/Non Drug [...] 146 Performing Lab: Notes/Report: Test performed by [facility] [employer] Formerly [facility] , [address], [place] [address] Jung Jc MD, Reimbursement Counselor CLIA: [id number] Sodium 135 135-145 mmol/L Potassium 4.7 3.5-5.3 [...] 03/21/2024 Encounters Encounter Location Date Provider Diagnosis [facility] [address] [facility] [address] [place], [place] [id number] 03/21/2024 Yannick Jain Onychomycosis of toenail B35.1 ASSESSMENTS Encounter Date Diagnosis Assessment Notes Treatment Notes Treatment Clinical Notes 03/21/2024 Onychomycosis of toenail (ICD-10 - B35.1) PLAN OF TREATMENT Next Appt Details Follow Up: 6 Weeks, Reason: Provider Name:Yannick Mota Cheryl er, 08/19/2024 01:15:00 PM, [address] [facility] [address] [facility], [address], [place], [place], [phone], Progress Notes * Examination Category Sub-Category Detail [...]
--- OUTSIDE RECORDS SUMMARY | 2024-07-07 14:48 | XMS_ITS | Clinical Summary ---
Author Organization [facility] Address [facility] [place] [address] Phone Care Team Providers Care Barn Operator Name Role Phone Dillan Jain MD Primary Care Provider [phone] Allergies No known active allergies Medications No known medications Social History Tobacco Use Types Packs/Day Years Used Date Smoking Tobacco: Never Assessed Comments Unknown Sex and Gender Information Value Date Recorded Sex Assigned at Not on file Legal Sex Female 5:26 AM EDT Gender Identity Not on file Sexual Orientation Not on file Obstetrics History Last Filed Vital Signs Vital Sign Reading Time Taken Comments Blood Pressure 181/90 10/15/2014 5:41 PM EST Pulse 104 10/15/2014 5:41 PM EST Temperature 36.9 ??C (98.4 ??F) 10/15/2014 5:41 PM ES T Respiratory Rate 22 10/15/2014 5:41 PM EST Oxygen Saturation 95% 10/15/2014 5:41 PM EST Inhaled Oxygen Concentration - - Weight 108.9 kg (240 lb) 10/15/2014 5:41 PM EST Height 165.1 cm (5' 5 ) 10/15/2014 5:41 PM EST Body Mass Index 39.94 10/15/2014 5:41 PM EST Plan of Treatment Health Maintenance Due Date Last Done Comments Wellness Exam Medicare 1957 Hepatitis C Screening 1971 Cologuard 1998 Colon Cancer Screening 1998 Colonoscopy 1998 FIT 1998 Sigmoidoscopy 1998 Virtual Colonography 1998 Bone Density Screening 2018 Pneumococcal Vaccine 65+ (2 of 2 - PPSV23 or PCV20) 10/15/2019 10/15/2018 COVID-19 Vaccine (1 - season) 2024 Influenza Vaccine (#1) 2024 2, 05/25/2020, 04/29/2019, Additional history exists Breast Cancer Screening 12/03/2025 12/04/19 24, 01/26/2022, 01/22/2021, Additional history exists DTaP/TDaP/Td (2 - Td or Tdap) 12/24/2028 12/24/2018 Zoster Completed 12/26/2018, 10/17/2018 Hepatitis B Vaccine Aged Out No longe r eligible based on patient's age to complete this topic Procedures Procedure Name Priority Date/Time Associated Diagnosis Comments MM MAMMO DIGITAL LIGIA SCREEN BILAT Routine 12/04/2023 3:32 PM EDT Encounter for screening mammogram for malignant neoplasm of breast from Last 3 Months or Most Recently Relevant to Health Maintenance Results * MM MAMMO DIGITAL LIGIA SCREEN BILAT (12/04/2023 3:32 PM EDT) Anatomical Region Laterality Modality Breast Bilateral Mammography 12/04/2023 3:40 PM EDT Impressions 12/04/2023 3:40 PM EDT Negative ??([id number]) ~ RECOMMENDATION: Routine screening mammogram in 1 year. ~ DISCLAIMER * Any patient with a palpable abnormality, unexplained by breast imaging, should be managed on clinical basis by the attending physician. * Breast imaging has a false negative rate of 15%. * The patient was notified by mail of the results of this examination. *The patient's information was entered into a reminder system with a target due date for the next mammogram, in accordance with the [employer] and the Society of Breast Imaging recommendations. Narrative 12/04/2023 3:40 PM EDT Procedure:MM MAMMO DIGITAL LIGIA SCREEN BILAT ~ Reason for exam: screening, asymptomatic. Z12.31-Encounter for screening mammogram for malignant neoplasm of [id number] ~ MM MAMMO DIGITAL LIGIA SCREEN BILAT Bilateral CC and MLO view(s) were taken. There are scattered fibroglandular densities. Prior study comparison: Compared with prior studies the most recent being 01/26/22, 01/22/21 No mammographic evidence of malignancy. ~ Procedure Note Jonathan Pickering MD - 12/04/2023 Procedure:MM MAMMO DIGITAL LIGIA SCREEN BILAT ~ Reason for exam: screening, asymptomatic. Z12.31-Encounter for screening mammogram for malignant neoplasm of [id number]-CM ~ MM MAMMO DIGITAL LIGIA SCREEN BILAT Bilateral CC and MLO view(s) were taken. There are scattered fibroglandular densities. Prior study comparison: Compared with prior studies the most recentbeing 01/26/22, 01/22/21 No mammographic evidence of malignancy. ~ IMPRESSION: Negative ([id number]) ~ RECOMMENDATION: Routine screening mammogram in 1 year. ~ DISCLAIMER * Any patient with a palpable abnormality, unexplained by breast imaging, should be managed on clinical basis by the attending physician. * Breast imaging has a false negative rate of 15%. * The patient was notified by mail of the results of this examination. *The patient's information was entered into a reminder system with atarget due date for the next mammogram, in accordance with the [employer] and the Society of Breast Imaging recommendations. Dillan Jain MD IMG MAMMOGRAPHY ORDERABLE S Final Result from Last 3 Months or Most Recently Relevant to Health Maintenance Insurance [place] [address] [employer] MEDICARE [id number] Care Teams Barn Operator Relationship Specialty Start Date End Date Dillan Jain MD [address] [facility] [address] [place] [phone] PCP - General Family Medicine 11/30/18
--- OUTSIDE RECORDS SUMMARY | 2024-07-07 14:48 | XMS_ITS | Encounter Summary ---
Author Organization [place] [address] Care Team Providers Care Janitor Cleaner Name Role Phone Unavailable Primary Care Provider Unavailabl e Encounter Details Date Type Department Care Team (Late st Contact Info) Description 05/23/2001 10:30 AM EDT - 05/23/2001 3:20 PM EDT Hospital Encounter [facility] Kimberly Mar MD [address] [place] [address] Social History Tobacco Use Types Packs/Day Years Used Date Smoking Tobacco: Never Assessed Comments Unknown Sex and Gender Information Value Date Recorded Sex Assigned at Not on file Legal Sex Female 5:26 AM EDT Gender Identity Not on file Sexual Orientation Not on file documented as of this encounter H&P Notes * Unknown, U - 04/01/2010 8:38 PM EDT documented in this encounter Plan of Treatment Not on file documented as of this encounter Visit Diagnoses Not on filedocumented in this encounter
--- OUTSIDE RECORDS SUMMARY | 2024-07-07 14:48 | XMS_ITS | Encounter Summary ---
Author Organization [place] [address] Care Team Providers Care Athletic Field Custodian Name Role Phone Dillan Jain MD Primary Care Provider [phone] Reason for Referral * Mammography (Routine) - Closed Specialty Diagnoses / Procedures Referred By Primo johnson Referred To Contact Radiology Diagnoses Encounter for screening mammogram for malignant neoplasm of breast Procedures MM MAMMO DIGITAL SCREENING W Dillan Trinidad MD [facility] [place] [address] Phone: tel: fax: Referral ID Status Reason Start Date Expiration Date Visits Re quested Visits Authorized [id number] Closed 01/04/2021 01/04/2023 1 1 Reason for Visit * Mammography (Routine) - Closed Specialty Diagnoses / Procedures Referred By Primo johnson Referred To Contact Radiology Diagnoses Encounter for screening mammogram for malignant neoplasm of breast Procedures MM MAMMO DIGITAL SCREENING W Dillan Trinidad MD [facility] [place] [address] Phone: tel: fax: Referral ID Status Reason Start Date Expiration Date Visits Re quested Visits Authorized [id number] Closed 01/04/2021 01/04/2023 1 1 Encounter Details Date Type Department Care Team (Latest Contact Info) Description 01/22/2021 1:27 PM EDT - 01/22/2021 11:59 PM EDT Hospital Encounter [facility] Mammography [address] [place] [address] Dillan Jain MD [address] [place] [facility] [address] [place] [address] Encounter for screening mammogram for malignant neoplasm of breast Discharge Disposition: Home or Self Care Social History Tobacco Use Types Packs/Day Years Used Date Smoking Tobacco: Never Assessed Comments Unknown Sex and Gender Information Value Date Recorded Sex Assigned at Not on file Legal Sex Female 5:26 AM EDT Gender Identity Not on file Sexual Orientation Not on file COVID-19 Exposure Response Date Recorded In the last month, have you been in contact with someone who was confirmed or suspected to have Coronavirus / COVID-19? No / Unsure 01/22/2021 1:25 PM EDT documented as of this encounter Discharge Disposition Disposition Code Departure Means Destination Home or Self Care documented in this encounter Plan of Treatment Not on file documented as of this encounter Procedures Procedure Name Priority Date/Time Associated Diagnosis Comments MM MAMMO DIGITAL SCREENING W CAD BILAT Routine 01/22/2021 2:00 PM EDT Encounter for screening mammogram for malignant neoplasm of breast documented in this encounter Results * MM MAMMO DIGITAL SCREENING W CAD BILAT (01/22/2021 2:00 PM EDT) Anatomical Region Laterality Modality Breast Bilateral Mammography 01/22/2021 2:28 PM EDT Impressions 01/22/2021 2:28 PM EDT Negative ??([id number]-2) ~ RECOMMENDATION: Routine screening mammogram in 1 [...] the next mammogram, in accordance with the [employer] and the Society of Breast Imaging recommendations. The mammogram was reviewed by a Radiologist and CAD. Narrative 01/22/2021 2:28 PM EDT Procedure:MM MAMMO DIGITAL SCREENING W CAD BILAT ~ Reason for exam: screening, asymptomatic. Z12.31-Encounter for screening mammogram for malignant neoplasm of eaxjmu-DZW-65-CM ~ MM MAMMO DIG SCREEN CAD BILAT Bilateral CC and MLO view(s) were taken. There are scattered fibroglandular densities. Prior study comparison: Compared with prior studies the most recent being 01/20/20, 12/20/18 No mammographic evidence of malignancy. ~ Procedure Note Esperanza Lewis MD - 01/22/2021 Procedure:MM MAMMO DIGITAL SCREENING W CAD BILAT ~ Reason for exam: screening, asymptomatic. Z12.31-Encounter for screening mammogram for malignant neoplasm of opdgpy-XHL-34-CM ~ MM MAMMO DIG SCREEN CAD BILAT Bilateral CC and MLO view(s) were taken. There are scattered fibroglandular densities. Prior study comparison: Compared with prior studies the most recentbeing 01/20/20, 12/20/18 No mammographic evidence of malignancy. ~ IMPRESSION: Negative (VGS-Pwdadani-7) ~ RECOMMENDATION: Routine screening mammogram in 1 [...] the next mammogram, in accordance with the [employer] and the Society of Breast Imaging recommendations. The mammogram was reviewed by a Radiologist and CAD. Dillan Jain MD IMG MAMMOGRAPHY ORDERABLE S Final Result documented in this encounter Visit Diagnoses Diagnosis Encounter for screening mammogram for malignant neoplasm of breast Other screening mammogram documented in this encounter Care Teams Athletic Field Custodian Relationship Specialty Start Date End Date Dillan Jain MD [facility] [address] [place] [address] PCP - General Family Medicine 11/30/18 documented as of this encounter
--- OUTSIDE RECORDS SUMMARY | 2024-07-07 14:48 | XMS_ITS | Encounter Summary ---
Author Organization [facility] [place] [address] Care Team Providers Care Network Contractor Name Role Phone Dillan Jain MD Primary Care Provider [phone] Encounter Details Date Type Department Care Team (Latest Contact Info) Description 01/20/2020 Travel Social History Tobacco Use Types Packs/Day Years [...] have Coronavirus / COVID-19? No / Unsure 01/20/2020 1:38 PM EDT documented as of this encounter Plan of Treatment Not on file documented as of this encounter Visit Diagnoses Not on filedocumented in this encounter Care Teams Network Contractor Relationship Specialty Start Date End Date Dillan Jain MD [address] [facility] [address] [facility] [address] PCP - General Family Medicine 11/30/18 documented as of this encounter
--- OUTSIDE RECORDS SUMMARY | 2024-07-07 14:48 | XMS_ITS | Encounter Summary ---
Author Organization [place] [address] Care Team Providers Care Senior Health Physics Technician Name Role Phone Unavailable Primary Care Provider Unavailabl e Encounter Details Date Type Department Care Team (Late st Contact Info) Description 06/16/2001 6:06 AM EDT - 06/16/2001 11:59 PM EDT Hospital Encounter [facility] Billy Carlin A [address] [place] [address] [address] [place] [id number] Social History Tobacco Use Types Packs/Day Years Used Date Smoking Tobacco: Never Assessed Comments Unknown Sex and Gender Information Value Date Recorded Sex Assigned at Not on file Legal Sex Female 5:26 AM EDT Gender Identity Not on file Sexual Orientation Not on file documented as of this encounter Plan of Treatment Not on file documented as of this encounter Visit Diagnoses Not on filedocumented in this encounter
--- OUTSIDE RECORDS SUMMARY | 2024-07-07 14:48 | XMS_ITS | Encounter Summary ---
Author Organization [place] [address] Care Team Providers Care Dog Licenser Name Role Phone Dillan Jain MD Primary Care Provider [phone] Reason for Referral * Mammography (Routine) - Closed Specialty Diagnoses / Procedures Referred By Primo johnson Referred To Contact Radiology Diagnoses Encounter for screening mammogram for malignant neoplasm of breast Procedures MM MAMMO DIGITAL SCREENING W Dillan Trinidad MD [address] [place] [address] Phone: tel: fax: Referral ID Status Reason Start Date Expiration Date Visits Re quested Visits Authorized [id number] Closed 01/09/2020 01/08/2022 1 1 Reason for Visit * Mammography (Routine) - Closed Specialty Diagnoses / Procedures Referred By Primo johnson Referred To Contact Radiology Diagnoses Encounter for screening mammogram for malignant neoplasm of breast Procedures MM MAMMO DIGITAL SCREENING W Dillan Trinidad MD [address] [place] [address] Phone: tel: fax: Referral ID Status Reason Start Date Expiration Date Visits Re quested Visits Authorized [id number] Closed 01/09/2020 01/08/2022 1 1 Encounter Details Date Type Department Care Team (Latest Contact Info) Description 01/20/2020 1:30 PM EDT - 01/20/2020 11:59 PM EDT Hospital Encounter [address] [address] [place] [address] Dillan Jain MD [address]10 [facility] [address] [place] [address] [...] MAMMO DIGITAL SCREENING W CAD BILAT Routine 01/20/2020 1:53 PM EDT Encounter for screening mammogram for malignant neoplasm of breast documented in this encounter Results * MM MAMMO DIGITAL SCREENING W CAD BILAT (01/20/2020 1:53 PM EDT) Anatomical Region Laterality Modality Breast Bilateral Mammography 01/20/2020 3:42 PM EDT Impressions 01/20/2020 3:42 PM EDT Negative ??([id number]) ~ RECOMMENDATION: Routine screening mammogram in 1 year. Tomosynthesis recommended ~ DISCLAIMER * Any patient with a palpable abnormality, unexplained by breast imaging, should be managed on clinical basis by the attending physician. * Breast imaging has a false negative rate of 15%. * The patient was notified by mail of the results of this examination. *The patient's information was entered into a reminder system with a target due date for the next mammogram. The mammogram was reviewed by a Radiologist and CAD. Narrative 01/20/2020 3:42 PM EDT Procedure:MM MAMMO DIGITAL SCREENING W CAD BILAT ~ Reason for exam: screening, asymptomatic. Z12.31-Encounter for screening mammogram for malignant neoplasm of lkyonv-PEY-66-CM ~ MM MAMMO DIG SCREEN CAD BILAT Bilateral CC and MLO view(s) were taken. There are scattered fibroglandular densities. Prior study comparison: Compared with prior studies the most recent being 12/20/18, 11/03/17 No mammographic evidence of malignancy. ~ Procedure Note Sanjana Mcdonough MD - 01/20/2020 Procedure:MM MAMMO DIGITAL SCREENING W CAD BILAT ~ Reason for exam: screening, asymptomatic. Z12.31-Encounter for screening mammogram for malignant neoplasm of drljnj-ALS-48-CM ~ MM MAMMO DIG SCREEN CAD BILAT Bilateral CC and MLO view(s) were taken. There are scattered fibroglandular densities. Prior study comparison: Compared with prior studies the most recentbeing 12/20/18, 11/03/17 No mammographic evidence of malignancy. ~ IMPRESSION: Negative (QUR-Yidcgfyk-7) ~ RECOMMENDATION: Routine screening mammogram in 1 year. Tomosynthesis recommended ~ DISCLAIMER * Any patient with a palpable abnormality, unexplained by breast imaging, should be managed on clinical basis by the attending physician. * Breast imaging has a false negative rate of 15%. * The patient was notified by mail of the results of this examination. *The patient's information was entered into a reminder system with atarget due date for the next mammogram. The mammogram was reviewed by a Radiologist and CAD. Dillan Jain MD IMG MAMMOGRAPHY ORDERABLE S Final Result documented in this encounter Visit Diagnoses Diagnosis Encounter for screening mammogram for malignant neoplasm of breast Other screening mammogram documented in this encounter Care Teams Dog Licenser Relationship Specialty Start Date End Date Dillan Jain MD [address] [place] [address] [address] [place] [address] PCP - General Family Medicine 11/30/18 documented as of this encounter
--- OUTSIDE RECORDS SUMMARY | 2024-07-07 14:48 | XMS_ITS | Encounter Summary ---
Author Organization [place] [address] Care Team Providers Care Christian Education Director Name Role Phone Unavailable Primary Care Provider Unavailabl e Encounter Details Date Type Department Care Team (Late st Contact Info) Description 05/08/2001 7:59 AM EDT - 05/08/2001 11:59 PM EDT Hospital Encounter [facility] [place] [address] [address] [place] [address] Social History Tobacco Use Types Packs/Day Years [...]
--- OUTSIDE RECORDS SUMMARY | 2024-07-07 14:48 | XMS_ITS | Encounter Summary ---
Author Organization [facility] [address] Care Team Providers Care Pharmacy Affairs Assistant Name Role Phone Dillan Jain MD Primary Care Provider [phone] [phone] Encounter Details Date Type Department Care Team (Latest Contact Info) Description 01/26/2022 Travel Social History Tobacco Use Types Packs/Day Years Used Date Smoking Tobacco: Never Assessed Comments Unknown Sex and Gender Information Value Date Recorded Sex Assigned at Not on file Legal Sex Female 5:26 AM EDT Gender Identity Not on file Sexual Orientation Not on file COVID-19 Exposure Response Date Recorded In the last 10 days, have yo u been in contact with someone who was confirmed or suspected to have Coronavirus/COVID-19? No / Unsure 01/26/2022 12:17 PM EDT documented as of this encounter Plan of Treatment Not on file documented as of this encounter Visit Diagnoses Not on filedocumented in this encounter Care Teams Pharmacy Affairs Assistant Relationship Specialty Start Date End Date Dillan Jain MD [address] [facility] [address] [place] [address] PCP - General Family Medicine 11/30/18 documented as of this encounter
--- OUTSIDE RECORDS SUMMARY | 2024-07-07 14:48 | XMS_ITS | Encounter Summary ---
Author Organization [place] [address] Care Team Providers Care Esthetician/Spa Coordinator Name Role Phone Dillan Jain MD Primary Care Provider [phone] Reason for Referral * Mammography (Routine) - Pending Review Specialty Diagnoses / Procedures Referred By Primo johnson Referred To Contact Radiology Diagnoses Encounter for screening mammogram for malignant neoplasm of breast Procedures MM MAMMO DIGITAL LIGIA SCREEN Dillan Shea MD [facility] [place] [address] Phone: tel: fax: Referral ID Status Reason Start Date Expiration Date V isits Requested Visits Authorized [id number] Pending Review 01/18/2023 01/18/2025 1 1 Reason for Visit * Mammography (Routine) - Pending Review Specialty Diagnoses / Procedures Referred By Primo johnson Referred To Contact Radiology Diagnoses Encounter for screening mammogram for malignant neoplasm of breast Procedures MM MAMMO DIGITAL LIGIA SCREEN Dillan Shea MD [facility] [place] [address] Phone: tel: fax: Referral ID Status Reason Start Date Expiration Date V isits Requested Visits Authorized [id number] Pending Review 01/18/2023 01/18/2025 1 1 Encounter Details Date Type Department Care Team (Latest Contact Info) Description 12/04/2023 3:04 PM EDT - 12/04/2023 11:59 PM EDT Hospital Encounter [facility] Mammography [address] [place] [address] Dillan Jain MD [address] [place] [address] Encounter [...] on file documented as of this encounter Discharge Disposition [...] this encounter Results * MM MAMMO DIGITAL LIGIA SCREEN BILAT (12/04/2023 3:32 PM EDT) Anatomical Region Laterality Modality Breast Bilateral Mammography 12/04/2023 3:40 PM EDT Impressions 12/04/2023 3:40 PM EDT Negative ??([id number]-Mksowxha-5) ~ RECOMMENDATION: Routine screening mammogram in 1 [...] the next mammogram, in accordance with the [employer] and the Society of Breast Imaging recommendations. Narrative 12/04/2023 3:40 PM EDT Procedure:MM MAMMO DIGITAL LIGIA SCREEN BILAT ~ Reason for exam: screening, asymptomatic. Z12.31-Encounter for screening mammogram for malignant neoplasm of stoqyb-IVR-49-CM ~ MM MAMMO DIGITAL LIGIA SCREEN BILAT [...] for screening mammogram for malignant neoplasm of ebgjtz-JSV-48-CM ~ MM MAMMO DIGITAL LIGIA SCREEN BILAT Bilateral CC and MLO view(s) were taken. There are scattered fibroglandular densities. Prior study comparison: Compared with prior studies the most recentbeing 01/26/22, 01/22/21 No mammographic evidence of malignancy. ~ IMPRESSION: Negative (HTO-Wfjrrxlb-1) ~ RECOMMENDATION: Routine screening mammogram in 1 [...] the next mammogram, in accordance with the [employer] and the Society of Breast Imaging recommendations. Dillan Jain MD IMG MAMMOGRAPHY ORDERABLE S Final Result documented in this encounter Visit Diagnoses Diagnosis Encounter for screening mammogram for malignant neoplasm of breast Other screening mammogram documented in this encounter Care Teams Esthetician/Spa Coordinator Relationship Specialty Start Date End Date Dillan Jain MD [address] [place] [address] [address] [place] [id number] PCP - General Family Medicine 11/30/18 documented as of this encounter
--- OUTSIDE RECORDS SUMMARY | 2024-07-07 14:48 | XMS_ITS | Encounter Summary ---
Author Organization [place] [address] Care Team Providers Care Supervisor Cutting And Boning Name Role Phone Nakul Jain MD Primary Care Provider [phone] Reason for Visit * Mammography (Routine) - Closed Specialty Diagnoses / Procedures Referred By Contac t Referred To Contact Radiology Diagnoses Breast density Procedures MM US BREAST LIMITED RIGHT Dillan Jain MD [address] [place] [address] [address] [place] [address] Phone: tel: fax: Referral ID Status Reason Start Date Expiration Date Visits Re quested Visits Authorized [id number] Closed 05/01/2015 04/30/2016 1 1 Encounter Details Date Type Department Care Team (Latest Contact Info) Description 05/20/2015 2:30 PM EDT - 05/20/2015 11:59 PM EDT Hospital Encounter [facility] Ultrasound [address] [place] [address] Dillan Jain MD [address] [place] [address] [address] [place] [address] Breast density Discharge Disposition: Home or Self Care Social [...] Name Priority Date/Time Associated Diagnosis Comments MM US BREAST LIMITED RIGHT Routine 05/20/2015 3:04 PM EDT Breast density documented in this encounter Results * MM US BREAST LIMITED RIGHT (05/20/2015 3:04 PM EDT) Anatomical Region Laterality Modality Breast Right Ultrasound 05/21/2015 6:36 AM EDT Impressions 05/22/2015 8:29 AM EDT : Probably benign ([id number]-2) ~ As a conservative measure, recommend six month right diagnostic mammogram. ~ RECOMMENDATION: Follow-up diagnostic mammogram of the right breast in 6 months. Narrative 05/22/2015 8:29 AM EDT MM US BREAST LIMITED RIGHT RIGHT BREAST ULTRASOUND, 05-20-15: ~ Indication: ??Asymptomatic abnormal screen. ~ Findings: ~ Lateral right breast, centered around 9:00 position was scanned by both director cardiovascular and dictating radiologist. No solid or cystic mass lesion seen. No abnormal shadowing. ~ Dillan Jain MD IMG MAMMOGRAPHY ORDERABLE S Final Result documented in this encounter Visit Diagnoses Diagnosis Breast density Other sign and symptom in breast documented in this encounter Care Teams Supervisor Cutting And Boning Relationship Specialty Start Date End Date Nakul Jain MD [address] [place] [address] [place] [phone] PCP - General Psychiatry & Neurology-Neurology 04/09/12 11/29/18 documented as of this encounter
--- OUTSIDE RECORDS SUMMARY | 2024-07-07 14:48 | XMS_ITS | Encounter Summary ---
Author Organization [place] [address] Care Team Providers Care Loom Cleaner Name Role Phone Unavailable Primary Care Provider Unavailabl e Encounter Details Date Type Department Care Team (Late st Contact Info) Description 03/19/2002 11:14 AM EDT - 03/19/2002 11:59 PM EDT Hospital Encounter [facility] Billy Carlin A [address] [place] [address] [address] [place] [id number] Social History Tobacco Use Types Packs/Day Years [...]
--- OUTSIDE RECORDS SUMMARY | 2024-07-07 14:48 | XMS_ITS | Encounter Summary ---
Author Organization [place] [address] Care Team Providers Care Porcelain Finisher Name Role Phone Nakul Jain MD Primary Care Provider [phone] Reason for Visit * Mammography (Routine) - Closed Specialty Diagnoses / Procedures Referred By Contac t Referred To Contact Radiology Diagnoses Other screening mammogram Procedures MM MOBILE MAMMO DIGITAL SCREEN W CAD DOMINIC Dillan Jain MD [address] [place] [address] [address] [place] [address] Phone: tel: fax: Referral ID Status Reason Start Date Expiration Date Visits Re quested Visits Authorized [id number] Closed 04/16/2014 10/13/2014 1 1 Encounter Details Date Type Department Care Team (Latest Contact Info) Description 04/23/2014 5:37 AM EDT - 04/23/2014 11:59 PM EDT Hospital Encounter Mobile Mammography Other Location View online schedule for mobile van location [phone] Dillan Jain MD [address] [place] [address] [address] [place] [address] Other screening mammogram Discharge Disposition: Home or Self Care Social [...] Name Priority Date/Time Associated Diagnosis Comments MM MOBILE MAMMO DIGITAL SCREEN W CAD DOMINIC Routine 04/23/2014 11:45 AM EDT Other screening mammogram documented in this encounter Results * MM MOBILE MAMMO DIGITAL SCREEN W CAD DOMINIC (04/23/2014 11:45 AM EDT) Anatomical Region Laterality Modality Breast Mammography 04/24/2014 2:58 PM EDT Impressions 04/24/2014 2:58 PM EDT : Negative ??([id number]) ~ RECOMMENDATION: Routine screening mammogram in 1 year. ~ * The patient with a palpable abnormality, unexplained by [...] reviewed by a Radiologist and CAD. Narrative 04/24/2014 2:58 PM EDT Procedure:MM MOBILE MAMMO DIGITAL SCREEN W CAD DOMINIC ~ Reason for exam: screening ??(asymptomatic). ~ MM MOBILE MAMMO DIGITAL SCREEN W CAD DOMINIC Bilateral CC and MLO view(s) were taken. The breast tissue is almost entirely fat. ??No suspicious calcifications. Compared to prior studies the most recent being 04-24-13. ~ Procedure Note Dillan Khoury MD - 04/24/2014 Procedure:MM MOBILE MAMMO DIGITAL SCREEN W CAD DOMINIC ~ Reason for exam: screening (asymptomatic). ~ MM MOBILE MAMMO DIGITAL SCREEN W CAD DOMINIC Bilateral CC and MLO view(s) were taken. The breast tissue is almost entirely fat. No suspicious calcifications. Compared to prior studies the most recent being 04-24-13. ~ IMPRESSION: Negative ([id number]-Oujkmugd-4) ~ RECOMMENDATION: Routine screening mammogram in 1 year. ~ * The patient with a palpable abnormality, unexplained by [...] documented in this encounter Visit Diagnoses Diagnosis Other screening mammogram documented in this encounter Care Teams Porcelain Finisher Relationship Specialty [place] [address] [place] [address] [place] [phone] PCP - General Psychiatry & Neurology-Neurology 04/09/12 11/29/18 documented as of this encounter
--- OUTSIDE RECORDS SUMMARY | 2024-07-07 14:48 | XMS_ITS | Encounter Summary ---
Author Organization [facility] [place] [address] Care Team Providers Care Retail Merchandiser Technician Name Role Phone Dillan Jain MD Primary Care Provider [phone] Encounter Details Date Type Department Care Team (Latest Contact Info) Description 01/04/2021 Travel Social History Tobacco Use Types Packs/Day [...] have Coronavirus / COVID-19? No / Unsure 01/04/2021 3:18 PM EDT documented as of this encounter Plan of Treatment Not on file documented as of this encounter Visit Diagnoses Not on filedocumented in this encounter Care Teams Retail Merchandiser Technician Relationship Specialty Start Date End Date Dillan Jain MD [address] [facility] [address] [place] [phone] PCP - General Family Medicine 11/30/18 documented as of this encounter
--- OUTSIDE RECORDS SUMMARY | 2024-07-07 14:48 | XMS_ITS | Encounter Summary ---
Author Organization [place] [address] Care Team Providers Care Organisation And Methods Analyst Name Role Phone Nakul Jain MD Primary Care Provider [phone] Reason for Referral * Vascular Imaging (Emergency) - Closed Specialty Diagnoses / Procedures Referred By Contac t Referred To Contact Radiology Diagnoses Left leg swelling Procedures [facility] LOWER EXTREMITY VENOUS LEFT Nakul Lewis MD [address] [place] [address] Phone: tel: fax: Referral ID Status Reason Start Date Expiration Date Visits Re quested Visits Authorized [id number] Closed 10/15/2014 10/15/2015 1 1 Reason for Visit * Vascular Imaging (Emergency) - Closed Specialty Diagnoses / Procedures Referred By Contac t Referred To Contact Radiology Diagnoses Left leg swelling Procedures [facility] LOWER EXTREMITY VENOUS LEFT Nakul Lewis MD [address] [place] [address] Phone: tel: fax: Referral ID Status Reason Start Date Expiration Date Visits Re quested Visits Authorized [id number] Closed 10/15/2014 10/15/2015 1 1 Encounter Details Date Type Department Care Team (Latest Contact Info) Description 10/16/2014 11:58 AM EST - 10/16/2014 11:59 PM EST Hospital Encounter [facility] [address] [place] [address] Nakul Lewis MD [address] [place] [address] Left leg swelling Discharge Disposition: Home or Self Care Social History Tobacco Use Types Packs/Day Years Used Date Smoking Tobacco: Never Assessed Comments Unknown Sex and Gender Information Value Date Recorded Sex Assigned at Not on file Legal Sex Female 5:26 AM EDT Gender Identity Not on file Sexual Orientation Not on file documented as of this encounter Medications at Time of Discharge cephALEXin (KEFLEX) 500 mg Oral Capsule Take 1 Cap by mouth 4 times daily for 40 doses. 40 Cap 0 10/15/2014 10/25/2014 documented as of this encounter Discharge Disposition Disposition Code Departure Means Destination Home or Self Care documented in this encounter Plan of Treatment Not on file documented as of this encounter Procedures Procedure Name Priority Date/Time Associated Diagnosis Comments [facility] LOWER EXTREMITY VENOUS LEFT STAT 10/16/2014 12:00 PM EST Left leg swelling documented in this encounter Results * [facility] LOWER EXTREMITY VENOUS LEFT (10/16/2014 12:00 PM EST) Anatomical Region Laterality Modality Vascular, Thigh, Leg Electrocard iography 10/16/2014 12:0 0 PM EST Impressions 10/16/2014 1:12 PM EST ??FINDINGS: ?The deep veins of the left lower extremity are widely patent and compressible. Normal Doppler characteristics ? of spontaneous, phasic flow and augmentation to distal compression are demonstrated throughout the deep ? venous system of the left lower extremity. No reflux is noted. ? The left greater saphenous vein is widely patent and compressible. ? No evidence of thrombosis is noted in the contralateral right common femoral vein. ?CONCLUSIONS ??No evidence of deep vein thrombosis identified in the left lower extremity. ?No evidence of superficial vein thrombosis identified in the left lower extremity. ?No evidence of thrombosis is noted in the contralateral right common femoral vein. ?? Narrative Procedure Note Aleksander Geiger MD - 10/16/2014 IMPRESSION FINDINGS: The deep veins of the left lower extremity are widelypatent and compressible. Normal Doppler characteristics of spontaneous, phasic flow and augmentation to distalcompression are demonstrated throughout the deep venous system of the left lower extremity. No reflux isnoted. The left greater saphenous vein is widely patent andcompressible. No evidence of thrombosis is noted in the contralateralright common femoral vein. CONCLUSIONS No evidence of deep vein thrombosis identified in the left lowerextremity. No evidence of superficial vein thrombosis identified in the left lowerextremity. No evidence of thrombosis is noted in the contralateral right commonfemoral vein. us Nakul Lewis MD IMG VASCULAR ORDERABLES Fin al Result documented in this encounter Visit Diagnoses Diagnosis Left leg swelling documented in this encounter Care Teams Organisation And Methods Analyst Relationship Specialty Start Date End Date Nakul Jain MD [address] [facility] [address] [place] [address] PCP - General Psychiatry & Neurology-Neurology 04/09/12 11/29/18 documented as of this encounter
--- OUTSIDE RECORDS SUMMARY | 2024-07-07 14:48 | XMS_ITS | Encounter Summary ---
Author Organization [place] [address] Care Team Providers Care Guard Museum Name Role Phone Dillan Jain MD Primary Care Provider [phone] Reason for Referral * Mammography (Routine) - Closed Specialty Diagnoses / Procedures Referred By Primo johnson Referred To Contact Radiology Diagnoses Encounter for screening mammogram for malignant neoplasm of breast Procedures MM MAMMO DIGITAL LIGIA SCREEN Dillan Shea MD [facility] [place] [address] Phone: tel: fax: Referral ID Status Reason Start Date Expiration Date Visits Re quested Visits Authorized [id number] Closed 2022 01/08/2024 1 1 Reason for Visit * Mammography (Routine) - Closed Specialty Diagnoses / Procedures Referred By Primo johnson Referred To Contact Radiology Diagnoses Encounter for screening mammogram for malignant neoplasm of breast Procedures MM MAMMO DIGITAL LIGIA SCREEN Dillan Shea MD [facility] [address] [place] [address] Phone: tel: fax: Referral ID Status Reason Start Date Expiration Date Visits Re quested Visits Authorized [id number] Closed 2022 01/08/2024 1 1 Encounter Details Date Type Department Care Team (Latest Contact Info) Description 01/26/2022 12:18 PM EDT - 01/26/2022 11:59 PM EDT Hospital Encounter [facility] Mammography [address] [place] [address] Dillan Jain MD [address] [facility] [address] [place] [...] MM MAMMO DIGITAL LIGIA SCREEN BILAT Routine 01/26/2022 12:36 PM EDT Encounter for screening mammogram for malignant neoplasm of breast documented in this encounter Results * MM MAMMO DIGITAL LIGIA SCREEN BILAT (01/26/2022 12:36 PM EDT) Anatomical Region Laterality Modality Breast Bilateral Mammography 01/26/2022 3:21 PM EDT Impressions 01/26/2022 3:21 PM EDT Negative ??(QVL-Krdwkexf-3) ~ RECOMMENDATION: Routine screening mammogram in 1 [...] the next mammogram, in accordance with the [place] [employer] and the Society of Breast Imaging recommendations. Narrative 01/26/2022 3:21 PM EDT Procedure:MM MAMMO DIGITAL LIGIA SCREEN BILAT ~ Reason for exam: screening, asymptomatic. Z12.31-Encounter for screening mammogram for malignant neoplasm of [id number]-JEY-94-CM ~ MM MAMMO DIGITAL LIGIA SCREEN BILAT Bilateral CC and MLO view(s) were taken. There are scattered fibroglandular densities. Prior study comparison: Compared with prior studies the most recent being 01/22/21, 01/20/20 No mammographic evidence of malignancy. ~ Procedure Note Esperanza Lewis MD - 01/26/2022 Procedure:MM MAMMO DIGITAL LIGIA SCREEN BILAT ~ Reason for exam: screening, asymptomatic. Z12.31-Encounter for screening mammogram for malignant neoplasm of [id number]-KXZ-30-CM ~ MM MAMMO DIGITAL LIGIA SCREEN BILAT Bilateral CC and MLO view(s) were taken. There are scattered fibroglandular densities. Prior study comparison: Compared with prior studies the most recentbeing 01/22/21, 01/20/20 No mammographic evidence of malignancy. ~ IMPRESSION: Negative (SWF-Idehzznz-0) ~ RECOMMENDATION: Routine screening mammogram in 1 [...] the next mammogram, in accordance with the [place] [employer] and the Society of Breast Imaging recommendations. Dillan Jain MD IMG MAMMOGRAPHY ORDERABLE S Final Result documented in this encounter Visit Diagnoses Diagnosis Encounter for screening mammogram for malignant neoplasm of breast Other screening mammogram documented in this encounter Care Teams Guard Museum Relationship Specialty Start Date End Date Dillan Jain MD [address] [place] [address] [address] [place] [address] PCP - General Family Medicine 11/30/18 documented as of this encounter
--- OUTSIDE RECORDS SUMMARY | 2024-07-07 14:48 | XMS_ITS | Encounter Summary ---
Author Organization [facility] [place] [address] Care Team Providers Care Beekeeper Farmer Name Role Phone Dillan Jain MD Primary Care Provider [phone] Encounter Details Date Type Department Care Team (Latest Contact Info) Description 01/22/2021 Travel Social History Tobacco Use Types Packs/Day [...] on filedocumented in this encounter Care Teams Beekeeper Farmer Relationship Specialty Start Date End Date Dillan Jain MD [address] [facility] [address] [place] [address] PCP - General Family Medicine 11/30/18 documented as of this encounter
--- OUTSIDE RECORDS SUMMARY | 2024-07-07 14:48 | XMS_ITS | Patient Health Record ---
Author Organization [facility] Address [address] [facility] [address] [facility] [address] [place] [id number] Care Team Providers Care Tube Man Name Role Phone Yannick Jain Primary Care [...] 146 Performing Lab: Notes/Report: Test performed by [email or web address] [employer] [address] [place] [address] , [address], [place] [address] Jung Jc MD, Head Stock Transfer Clerk CLIA: [id number] Sodium 135 135-145 mmol/L Potassium 4.7 3.5-5.3 [...] <0.2-1.2 mg/dL A/G Ratio 1.1 1.1-2.5 mg/dL C3 Reviewed date:06/10/2024 09:57:59 AM Interpretation: Performing Lab: Notes/Report: C3 174 82-167 mg/dL Performed at: [address] [id number] [employer] Propelled Mining Machine Operator: Esa Antunez PhD, Phone: [phone] C4 Reviewed date:06/10/2024 09:57:59 AM Interpretation: Performing Lab: Notes/Report: C4 26 12-38 mg/dL DNADSAB Reviewed date:06/10/2024 09:57:59 AM Interpretation: Performing Lab: Notes/Report: DNADSAB 14 0-9 IU/mL Negative <5 Equivocal 5 - 9 Positive >9 Performed at: [address] [id number] [employer]elled [employer] Machine Operator: Esa Antunez PhD, Phone: [phone] H-Sed Rate Reviewed date:06/07/2024 11:32:10 AM Interpretation: Performing Lab: Notes/Report: ESR 17 0-30 mm/hr H-CRP Reviewed date:06/07/2024 11:32:10 AM Interpretation: Performing Lab: Notes/Report: CRP 5.8 0-4 mg/L H-CMP Reviewed date:06/07/2024 11:32:10 AM Interpretation: Performing Lab: Notes/Report: NA 134 136-145 mmol/L K 4.2 3.5-5.1 mmoL/L CL 103 98-107 mmol/L CO2 28 22.0-30.0 mmol/L GAP 7.2 5-15 mEq/L BUN 16 7-17 mg/dl CREATT 0.70 0.52-1.04 mg/dl GFRAA 100 >60 ML/MIN EGFR 82 >60 ml/min GLU 107 74-100 mg/dl CA 9.7 8.4-10.2 mg/dl BILIT 0.5 0.2-1.3 mg/dl AST 34 14-36 U/L ALT 29 12-78 U/L TP 7.5 6.3-8.2 g/dl ALB 4.0 3.5-5.0 g/dl GLOB 3.5 1.3-3.2 g/dL AGRATIO 1.1 1.1-1.8 ALP 107 38-126 U/L H-CBC Reviewed date:06/07/2024 11:32:10 AM Interpretation: Performing Lab: Notes/Report: WBC 8.0 4.8-10.8 K/mm3 RBC 4.50 4.20-5.40 M/mm3 HGB 14.4 12.2-16.2 g/dL HCT 42.4 37.0-47.0 % MCV 94.2 81-99 fl MCH 32.0 27.0-31.2 pg MCHC 34.0 31.8-35.4 g/dL RDW 13.7 11.5-17.5 % PLT 273 142-424 K/mm3 MPV 8.4 7.4-10.4 fl NE% 58.1 37.0-80.0 % LY% 30.8 10-50 % MO% 7.0 1.7-9.3 % EO% 3.3 0.1-12.0 % BA% 0.8 0.1-2.0 % NE# 4.6 1.8-7.8 K/mm3 LY# 2.5 0.7-4.5 K/mm3 MO# 0.6 0.1-1.0 K/mm3 EO# 0.3 0.0-0.4 K/mm3 BA# 0.1 0-0.2 K/mm3 P-Sed Rate (ESR) Reviewed date:10/10/2023 08:25:15 AM Interpretation:Esr 40 Performing Lab: Notes/Report: Test performed by [employer] [address] [place], [place] [address] [place] , [address], [place] [address] Jung Jc MD, Head Stock Transfer Clerk CLIA: [id number] Erythrocyte Sedimentation Ra te (ESR), Automated 40 <31 mm/hr P-Comprehensive Metabolic Pa alysha (CMP) Reviewed date:10/10/2023 08:25:15 AM Interpretation:Alk Phos 134 Performing Lab: Notes/Report: Test performed by [employer] [address] [place], [place] [address] [place] , [address], [place] [address] Jung Jc MD, Head Stock Transfer Clerk CLIA: [id number] Sodium 137 135-145 mEq/L Potassium 4.6 3.5-5.3 [...] <0.2-1.2 mg/dL A/G Ratio 1.3 1.1-2.5 mg/dL Bone density Reviewed date:01/17/2024 12:50:14 PM Interpretation:Normal Performing Lab: Notes/Report: Normal Bone density MEDICATIONS Medication SIG (Take, Route, Frequency, Duration) [...] tab(s) orally once a day 05/27/2017 Active Hydroxychloroquine Sulfate 2 00 MG 1 [...] Problem Essential hypertensi on (I10) Active confirmed 49307040 Problem Dyspepsia (K30) Active confirmed 030669 009 Problem Degenerative disc disease, lumbar (M51.36) Active confirmed 84812558 Problem Heart palpitations (R00.2) Active confirmed 51507587 Problem Falls frequently (R29.6) Active confirmed 311332185 Problem Other chronic pain (G89.29) Active confirmed 05929640 Problem Lumbago with sciatic a, left side (M54.42) Active confirmed 486826651 Problem Onychomycosis (B35.1) Active confirmed 956703467 Problem Pain in left shoulde r (M25.512) Active confirmed 67111998620791834 Problem Other chronic pain (G89.29) Active confirmed 33200824 Problem Pain in left knee (M25.562) Active confirmed 0332731727 Problem Chronic GERD (K21.9) Active confirmed 2 17409782 Problem JOSE (obstructive sle ep apnea) (G47.33) Active confirmed 06922645 Problem Ectopic atrial beats (I49.1) Active confirmed 167852051 Problem Trigger finger of right thumb (M65.311) Active confirmed 87755448586735 5 Problem VALENTINA positive (R76.8) Active confirmed 1 03108348 Problem Sleep disturbance, unspecified (G47.9) Active confirmed 75101525 Problem Pure hypercholesterolemia (E78.00) Active confirmed 393342991 Problem Dupuytren's contracture (M72.0) Active confirmed 117046914 Problem Fibrocystic breast disease (FCBD), unspecified laterality (N60.19) Active confirmed 79172569 Problem Lumbar facet joint pain (M54.5) Active confirmed 291552085 Problem Chondrocalcinosis (M11.20) Active confirmed 159908535 Problem Injury of left rotat or cuff, subsequent encounter (S46.002D) Active confirmed 836570215431649 01 Problem Other forms of systemic lupus erythematosus, unspecified organ involvement status (M32.8) Active confirmed 81818298 VITAL SIGNS Heart Rate 62 /min 05/20/2024 Blood pressure diastolic 70 mm Hg 05/20/2024 Height 65.25 in 05/20/2024 Blood pressure systolic 122 mm Hg 05/20/2024 Weight 255.6 lbs 05/20/2024 BMI 42.20 kg/m2 05/20/2024 Encounters Encounter Location Date Provider Diagnosis [facility] [address] [id number] 07/10/2023 Yannick Jain Essential hypertensi on I10 ; Heart palpitations R00.2 ; Other chronic pain G89.29 ; Midline low back pain with left-sided sciatica, unspecified chronicity M54.42 ; Degenerative disc disease, lumbar M51.36 ; VALENTINA positive R76.8 and Other forms of systemic lupus erythematosus, unspecified organ involvement status M32.8 [facility] [address] [id number] 10/09/2023 J Nakul Jain Pain in left knee M2 5.562 ; Chondrocalcinosis M11.20 and VALENTINA positive R76.8 [facility] [facility] [address] [id number] 01/22/2024 J Nakul Jain Essential hypertensi on I10 ; Heart palpitations R00.2 ; Pain in left knee M25.562 ; Falls frequently R29.6 ; Other chronic pain G89.29 ; Low back pain, unspecified M54.50 and Spinal stenosis of lumbosacral region M48.07 [facility] [address] [place], [place] [id number] 03/21/2024 Yannick Jain Onychomycosis of toe nail B35.1 [facility] [address] [place], [place] [id number] 05/20/2024 Yannick Jain Essential hypertensi on I10 ; Onychomycosis B35.1 ; Heart palpitations R00.2 and Lumbago with sciatica, left side M54.42 [facility] [address] [place], [place] [id number] 02/19/2024 Yannick Jain Degenerative disc disease, lumbar M51.36 ; Lumbar facet joint pain M54.5 ; Other chronic pain G89.29 and Onychomycosis B35.1 [facility] [address] [place], [place] [id number] 07/21/2023 Yannick Jain [facility] [address] [place], [place] [id number] 07/21/2023 Yannick Jain [facility] [address] [place], [place] [id number] 10/10/2023 Yannick Jain [facility] [address] [place], [place] [id number] 11/27/2023 Yannick Jain Postmenopausal Z78.0 [facility] [address] [place], [place] [id number] 12/22/2023 Yannick Jain Lumbago with sciatic a, left side M54.42 and Other chronic pain G89.29 [facility] [address] [place], [place] [id number] 02/19/2024 Yannick Jain Other chronic pain G 89.29 [facility] [address] [place], [place] [id number] 03/27/2024 Yannick Jain ASSESSMENTS Encounter Date Diagnosis Assessment Notes Treatment Notes Treatment Clinical Notes 10/09/2023 Chondrocalcinosis (ICD-10 - M11.20) 02/19/2024 Other chronic pain (ICD-10 - G89.29) 10/09/2023 Pain in left knee (ICD-10 - M25.562) 07/10/2023 Essential hypertensi on (ICD-10 - I10) continue current therapy. Discussed anti-inflammator y meds; Celebrex vs Ibuprofen. discussed episodic steroids. 07/10/2023 Heart palpitations (ICD-10 - R00.2) 11/27/2023 Postmenopausal (ICD- 10 - Z78.0) 01/22/2024 Essential hypertensi on (ICD-10 - I10) 01/22/2024 Heart palpitations (ICD-10 - R00.2) 02/19/2024 Lumbar facet joint p ain (ICD-10 - M54.5) 03/21/2024 Onychomycosis of toenail (ICD-10 - B35.1) 05/20/2024 Essential hypertensi on (ICD-10 - I10) 05/20/2024 Onychomycosis (ICD-1 0 - B35.1) 12/22/2023 Lumbago with sciatic a, left side (ICD-10 - M54.42) 12/22/2023 Other chronic pain (ICD-10 - G89.29) 02/19/2024 Degenerative disc disease, lumbar (ICD-10 - M51.36) 02/19/2024 Other chronic pain (ICD-10 - G89.29) 05/20/2024 Heart palpitations (ICD-10 - R00.2) 01/22/2024 Pain in left knee (ICD-10 - M25.562) 07/10/2023 Other chronic pain (ICD-10 - G89.29) 10/09/2023 VALENTINA positive (ICD-10 - R76.8) 01/22/2024 Falls frequently (ICD-10 - R29.6) 07/10/2023 Midline low back erik n with left-sided sciatica, unspecified chronicity (ICD-10 - M54.42) 05/20/2024 Lumbago with sciatic a, left side (ICD-10 - M54.42) 02/19/2024 Onychomycosis (ICD-1 0 - B35.1) 01/22/2024 Other chronic pain (ICD-10 - G89.29) Encourage BID Gabapentin 07/10/2023 Degenerative disc disease, lumbar (ICD-10 - M51.36) 07/10/2023 VALENTINA positive (ICD-10 - R76.8) 01/22/2024 Low back pain, unspecified (ICD-10 - M54.50) 07/10/2023 Other forms of syste maryellen lupus erythematosus, unspecified organ involvement status (ICD-10 - M32.8) 01/22/2024 Spinal stenosis of lumbosacral region (ICD-10 - M48.07) PLAN OF TREATMENT Next Appt Details Provider Name:Yannick Mota Cheryl er, 08/19/2024 01:15:00 PM, [address], [place], [place], [id number], Insurance Providers Payer Name Payer Address Payer Phone Subscriber Number Group Number Insured Name Patient Relationship to Insured Coverage Start Date Coverage End Date MEDICARE PART B [address] [address] [place] [address] [id number] RADHA MARTINEZ Self - patient is the insured [employer] MEDICARE SUPPLEMENT [address] [address] [place], [place] [id number] RADHA MARTINEZ Self - patient is the [...] 01/12/15 COVID screening: negative 01/15/2020 Colonoscopy at [facility] Dr. Gallegos, tubular gabrielle noma 01/16/[address] Reddy Hospitalization History Reason Date(Month/Year) [facility] ER- pain in right hip 12/14/08
--- OUTSIDE RECORDS SUMMARY | 2024-07-07 14:48 | XMS_ITS | Encounter Summary ---
Author Organization [place] [address] Care Team Providers Care Documentation Lead Name Role Phone Nakul Jain MD Primary Care Provider [phone] Reason for Visit * Mammography (Routine) - Closed Specialty Diagnoses / Procedures Referred By Contac t Referred To Contact Radiology Diagnoses Breast density Procedures MM MAMMO DIGITAL DIAGNOSTIC W CAD RIGHT Dillan Jain MD [address] [place] [address] [address] [place] [address] Phone: tel: fax: Referral ID Status Reason Start Date Expiration Date Visits Re quested Visits Authorized [id number] Closed 05/01/2015 04/30/2016 1 1 Encounter Details Date Type Department Care Team (Latest Contact Info) Description 05/20/2015 1:58 PM EDT - 05/20/2015 2:29 PM EDT Hospital Encounter [address] [place] [address] Dillan Jain MD [address] [place] [address] [address] [place] [address] Breast density Discharge Disposition: Home [...] Date/Time Associated Diagnosis Comments MM MAMMO DIGITAL DIAGNOSTIC W CAD RIGHT Routine 05/20/2015 2:43 PM EDT Breast density documented in this encounter Results * MM MAMMO DIGITAL DIAGNOSTIC W CAD RIGHT (05/20/2015 2:43 PM EDT) Anatomical Region Laterality Modality Breast Right Mammography 05/21/2015 6:36 AM EDT Impressions 05/22/2015 8:29 AM EDT : Incomplete-need additional imaging evaluation (RLV-Etxucchz-3) ~ Further evaluation with right breast ultrasound recommended. ~ RECOMMENDATION: Ultrasound of the right breast. ~ , this ultrasound examination was performed on 05-20-15 and will be reported separately. ~ * The patient with a palpable [...] reviewed by a Radiologist and CAD. Narrative 05/22/2015 8:29 AM EDT Procedure:MM MAMMO DIGITAL DIAGNOSTIC W CAD RIGHT ~ Reason for exam: additional evaluation requested from abnormal screening. ~ MM MAMMO DIGITAL DIAG CAD RIGHT CC and MLO view(s) were taken of the right breast. RIGHT DIAGNOSTIC MAMMOGRAM, 05-20-15: ~ Comparison: ??04-28-15, ??04-23-14 and 04-24-13. ~ Indication: ??Abnormal screen. ??Patient asymptomatic. ~ Findings: ~ On spot CC compression view only, there is a persistent 3 mm. oval , poorly marginated asymmetric density in anterior 1/3 lateral breast. It is not definitely seen on MLO spot compression or medio-lateral view. ??There are two punctate calcified densities associated with the defect. ~ Background tissue is scattered fibroglandular densities. ~ Dillan Jain MD IMG MAMMOGRAPHY ORDERABLE S Final Result documented in this encounter Visit Diagnoses Diagnosis Breast density Other sign and symptom in breast documented in this encounter Care Teams Documentation Lead Relationship Specialty Start Date End Date Nakul Jain MD [address] [place] [address] PCP - General Psychiatry & Neurology-Neurology 04/09/12 11/29/18 documented as of this encounter
--- OUTSIDE RECORDS SUMMARY | 2024-07-07 14:48 | XMS_ITS | Encounter Summary ---
Author Organization [facility] [place] [address] Care Team Providers Care Manager Mountain Name Role Phone Dillan Jain MD Primary Care Provider [phone] Encounter Details Date Type Department Care Team (Latest Contact Info) Description 01/09/2020 Travel Social History Tobacco Use Types Packs/Day [...] have Coronavirus / COVID-19? No / Unsure 01/09/2020 2:41 PM EDT documented as of this encounter Plan of Treatment Not on file documented as of this encounter Visit Diagnoses Not on filedocumented in this encounter Care Teams Manager Mountain Relationship Specialty Start Date End Date Dillan Jain MD [address] [facility] [address] [place] [address] PCP - General Family Medicine 11/30/18 documented as of this encounter
--- OUTSIDE RECORDS SUMMARY | 2024-07-07 14:48 | XMS_ITS | Encounter Summary ---
Author Organization [facility] [place] [address] Care Team Providers Care Placement Specialist Name Role Phone Nakul Jain MD Primary Care Provider [phone] Reason for Visit * Mammography (Routine) - Closed Specialty Diagnoses / Procedures Referred By Contac t Referred To Contact Radiology Diagnoses Other screening mammogram Procedures MM MOBILE MAMMO DIGITAL SCREEN W CAD DOMINIC Dillan Jain MD [address] [place] [address] [address] [place] [address] Phone: tel: fax: Referral ID Status Reason Start Date Expiration Date Visits Re quested Visits Authorized [id number] Closed 04/03/2013 09/30/2013 1 1 Encounter Details Date Type Department Care Team (Latest Contact Info) Description 04/24/2013 5:38 AM EDT - 04/24/2013 11:59 PM EDT Hospital Encounter Mobile Mammography Other Location View online schedule for mobile van location [phone] Dillan Jain MD [address] [place] [address] [address] [place] [address] Other screening mammogram Discharge Disposition: [...] MAMMO DIGITAL SCREEN W CAD DOMINIC Routine 04/24/2013 11:25 AM EDT Other screening mammogram documented in this encounter Results * MM MOBILE MAMMO DIGITAL SCREEN W CAD DOMINIC (04/24/2013 11:25 AM EDT) Anatomical Region Laterality Modality Breast Mammography 04/25/2013 8:37 AM EDT Impressions 04/25/2013 10:06 AM EDT : Negative ??([id number]) ~ RECOMMENDATION: Routine screening mammogram in 1 [...] reviewed by a Radiologist and CAD. Narrative 04/25/2013 10:06 AM EDT Procedure:MM MOBILE MAMMO DIGITAL SCREEN W CAD DOMINIC ~ Reason for exam: screening ??(asymptomatic). ~ MM MOBILE MAMMO DIGITAL SCREEN W CAD DOMINIC Bilateral CC and MLO view(s) were taken. The breast tissue is almost entirely fat. ??No suspicious calcifications. Compared with prior studies the most recent being 04-25-12 ~ Procedure Note Sanjana Mcdonough MD - 04/25/2013 Procedure:MM MOBILE MAMMO DIGITAL SCREEN W CAD DOMINIC ~ Reason for exam: screening (asymptomatic). ~ MM MOBILE MAMMO DIGITAL SCREEN W CAD DOMINIC Bilateral CC and MLO view(s) were taken. The breast tissue is almost entirely fat. No suspicious calcifications. Compared with prior studies the most recent being 04-25-12 ~ IMPRESSION: Negative ([id number]) ~ RECOMMENDATION: Routine screening mammogram in 1 [...] was reviewed by a Radiologist and CAD. us Dillan Jain MD IMG MAMMOGRAPHY ORDERABLE S Final Result documented in this encounter Visit Diagnoses Diagnosis Other screening mammogram documented in this encounter Care Teams Placement Specialist Relationship Specialty Start Date End Date Nakul Jain MD [address] [facility] [address] [place] [phone] PCP - General Psychiatry & Neurology-Neurology 04/09/12 11/29/18 documented as of this encounter
--- OUTSIDE RECORDS SUMMARY | 2024-07-07 14:48 | XMS_ITS | Encounter Summary ---
Author Organization [place] [address] Care Team Providers Care Lodge Attendant Name Role Phone Unavailable Primary Care Provider Unavailabl e Encounter Details Date Type Department Care Team (Late st Contact Info) Description 04/27/2001 9:52 AM EDT - 04/27/2001 11:59 PM EDT Hospital Encounter [facility] Marco Garcia MD Social History Tobacco Use Types Packs/Day Years [...]
--- OUTSIDE RECORDS SUMMARY | 2024-07-07 14:48 | XMS_ITS | Encounter Summary ---
Author Organization [place] [address] Care Team Providers Care Manager Book Name Role Phone Unavailable Primary Care Provider Unavailabl e Encounter Details Date Type Department Care Team (Late st Contact Info) Description 06/03/2001 7:06 AM EDT - 06/03/2001 11:59 PM EDT Hospital Encounter [facility] Boris Baer MD [address] [place] [address] Social History Tobacco Use Types Packs/Day [...]
--- OUTSIDE RECORDS SUMMARY | 2024-07-07 14:48 | XMS_ITS | Encounter Summary ---
Author Organization [facility] [place] [address] Care Team Providers Care Cook Chief Name Role Phone Nakul Jain MD Primary Care Provider [phone] Reason for Referral * Vascular Imaging (Emergency) - Closed Specialty Diagnoses / Procedures Referred By Contac t Referred To Contact Radiology Diagnoses Left leg swelling Procedures VA US LOWER EXTREMITY VENOUS LEFT Nakul Lewis MD [address] [place] [address] [place] [address] Phone: tel: fax: Referral ID Status Reason Start Date Expiration Date Visits Re quested Visits Authorized [id number] Closed 10/15/2014 10/15/2015 1 1 Reason for Visit * Reason Comments Foot Pain cpta-none, pt report s left foot pain, swelling and bruising no known injury. reports swelling started on Monday applied compression stocking, bruising found on Monday Encounter Details Date Type Department Care Team (Late st Contact Info) Description 10/15/2014 5:30 PM EST - 10/15/2014 7:04 PM EST Emergency [facility] [address] [facility] [place] [address] Nakul Lewis MD [address] [place] [address] [place] [address] Left leg swelling (Primary Dx); Cellulitis of left foot Discharge Disposition: Home or Self Care Social History Tobacco Use Types Packs/Day Years Used Date Smoking Tobacco: Never Assessed Comments Unknown Sex and Gender Information Value Date Recorded Sex Assigned at Not on file Legal Sex Female 5:26 AM EDT Gender Identity Not on file Sexual Orientation Not on file documented as of this encounter Last Filed Vital Signs Vital Sign Reading [...] Mass Index 39.94 10/15/2014 5:41 PM EST documented in this encounter Discharge Instructions * Discharge Instructions* Delia Lynch APRN - 10/15/2014 6:53 PM EST Thank you for trusting us to care for you and for your patience while waiting. Obtain left lower extremity ultrasound tomorrow. Call Central Scheduling at [phone]. Elevate left lower extremity is much as possible. Warm compresses to affected area. Take medications as prescribed. Return to ED for chest pain, shortness of breath or other concern. * Attachments The following attachments cannot be sent through Care Everywhere. * EDEMA, [id number] ([employer] [place]) * CELLULITIS, [id number] ([employer] [place]) documented in this encounter Medications at Time of Discharge cephALEXin (KEFLEX) 500 mg Oral Capsule Take 1 Cap by mouth 4 times daily for 40 doses. 40 Cap 0 10/15/2014 10/25/2014 documented as of this encounter Ordered Prescriptions Prescription Sig Dispense Quantity Refills Last Filled Start Date End Date cephALEXin (KEFLEX) 500 mg Oral Capsule Take 1 Cap by mouth 4 times daily for 40 doses. 40 Cap 0 10/15/2014 10/25/2014 documented in this encounter Discharge Disposition Disposition Code Departure Means Destination Home or Self Senior Living documented in this encounter ED Notes * Lisset Joya RN - 10/15/2014 7:03 PM EST Order for venous doppler and central scheduling * Delia LynchADAMARIS - 10/15/2014 5:55 PM EST CHIEF COMPLAINT Chief Complaint Patient presents with ??? Foot Pain cpta-none, pt reports left foot pain, swelling and bruising no known injury. reports swelling started on Monday applied compression stocking, bruising found on Monday HPI Sanjana Pierson is a 59 y.o. female who presents to the emergency department with complaints of Left foot pain for the past 5 days. States that her left leg started to swell. States that she gets swelling sometimes in her left leg. This was her initial symptom and then she noticed some bruising andredness. She denies any specific injury. She denies any skin breakdown. She denies fevers, chills, malaise, myalgias, increased shortness breath or chest pain. She's had no recent surgeries or long distance travel. She denies estrogen use. Her pain is mild in severity at rest but increases to moderate with weight bearing. No treatment provided prior to arrival. REVIEW OF SYSTEMS See HPI for further details. Review of systems otherwise negative. PAST MEDICAL HISTORY History reviewed. No pertinent past medical history. FAMILY HISTORY No family history on file. SOCIAL HISTORY History Social History ??? Marital Status: Spouse Name: N/A Number of Children: N/A ??? Years of Education: N/A Social History Main Topics ??? Smoking status: None ??? Smokeless tobacco: None ??? Alcohol Use: None ??? Drug Use: None ??? Sexual Activity: None Other Topics Concern ??? None Social History Narrative ??? None SURGICAL HISTORY No past surgical history on file. CURRENT MEDICATIONS No current outpatient prescriptions on file. ALLERGIES No Known Allergies PHYSICAL EXAM VITAL SIGNS: BP 181/90 Pulse 104 Temp(Src) 98.4 ??F (36.9 ??C) (Oral) Resp 22 Ht 5' 5 (1.651 m) Wt 240 lb (108.863 kg) BMI 39.94 kg/m2 SpO2 95% Constitutional: Well developed, Well nourished, No acute distress, Non-toxic appearance. Eyes: PERRL, EOMI, Conjunctiva normal, No discharge. Cardiovascular: Normal heart rate, Normal rhythm, No murmurs. Thorax & Lungs: Normal breath sounds, No respiratory distress. Skin: Warm, Dry, No erythema, No rash. Extremities: Intact distal pulses, No edema, No deformities. Musculoskeletal: Left leg exam: There is 1-2+ edema to the proximal mid oliva and distal. The patient does have approximately 2 cm of erythema and induration to the dorsolateral foot. This area is tender. 1+ pedal and DP pulse. Brisk capillary refill. Bruising and abrasion is also noted around the second phalanx. Neurologic: Alert & oriented x 3, Normal motor function, Normal sensory function, No focal deficits noted. Cranial nerves intact. Psychiatric: Normal affect, Normal judgement, Normal mood. RADIOLOGY/PROCEDURES Results for orders placed during the hospital encounter of 10/15/14 XR FOOT LEFT AP LATERAL AND OBLIQUE Narrative: XR FOOT LEFT AP LATERAL AND OBLIQUE Oct 15, 2014 06:12:02 PM Clinical: -FOOT PAIN COMPARISONS: None. FINDINGS: There is normal alignment of the left foot. There are no acute fractures. There is dorsal soft tissue swelling at the level of the metatarsal bones. There is no subcutaneous gas. There is spur formation along the undersurface of the calcaneus. Impression: IMPRESSION: There is dorsal soft tissue swelling. There is no acute osseous finding. CBC WITH AUTO DIFF Result Value Ref Range WBC 9.6 4.0 - 11.0 x10(3)/mcL RBC 4.85 3.80 - 5.10 x10(6)/mcL Hgb 14.9 12.0 - 15.6 gm/dL Hct 44.3 35.7 - 45.9 % MCV 91.4 82.5 - 99.8 fL MCH 30.7 27.0 - 34.3 pg MCHC 33.6 32.1 - 35.3 gm/dL RDW 13.5 11.5 - 15.0 % Platelet 277 144 - 423 x10(3)/mcL MPV 9.1 6.8 - 10.8 fL D-DIMER Result Value Ref Range D-Dimer 261 (*) <=230 ng/mL D-DU BASIC METABOLIC PANEL Result Value Ref Range Sodium 137 136 - 145 mmol/L Potassium 3.6 3.5 - 5.0 mmol/L Chloride 100 98 - 107 mmol/L Total CO2 25 22 - 29 mmol/L Anion Gap 12 7 - 16 mmol/L Calcium 9.6 8.8 - 10.2 mg/dL Glucose Lvl 109 (*) 82 - 100 mg/dL BUN 13 8 - 23 mg/dL Creatinine 0.57 0.51 - 1.30 mg/dL GFR Afr Am >60 GFR Non Afr Am >60 DIFFERENTIAL Result Value Ref Range Neut Percent 49.0 Lymph Percent 37.4 [place] Percent 8.6 Eos Percent 3.6 Baso Percent 1.4 Neut# 4.7 1.8 - 7.7 x10(3)/mcL Lymph# 3.6 0.6 - 4.8 x10(3)/mcL Greenwood# 0.8 0.0 - 1.3 x10(3)/mcL Eos# 0.3 0.0 - 0.5 x10(3)/mcL Baso# 0.1 0.0 - 0.2 x10(3)/mcL COURSE & MEDICAL DECISION MAKING Pertinent Labs & Imaging studies reviewed. (See chart for details) Filed Vitals: 10/15/14 1741 BP: 181/90 Pulse: 104 Temp: 98.4 ??F (36.9 ??C) TempSrc: Oral Resp: 22 Height: 5' 5 (1.651 m) Weight: 240 lb (108.863 kg) SpO2: 95% Upon arrival the patient's medication, medical history, and vitals were reviewed. The patient presents to the emergency department with above complaints. Patient with erythema, induration and tenderness to the dorsum of the left foot. She has edema to the left leg. Edema started first. A foot x-ray negative, CBC normal, mild elevation of the d-dimer. Given that the patient's initial symptom was edema to the left leg and she is edematous to the proximal oliva, will treat with one dose of Arixtra.Outpatient left lower extremity venous doppler ordered for tomorrow. Patient also started on Keflex. Followup and return instructions given. Discharge diagnosis and plan discussed with the patient and/or responsible libertarian. The patient and/or responsible libertarian was given the opportunity to ask questions and have them answered by myself prior to discharge. The patient and/or responsible libertarian verbalized understanding of the discharge plan. FINAL IMPRESSION 1. Left leg swelling 2. Cellulitis of left foot Discharge in stable condition. Electronically signed by: This chart was completed using voice recognition technology and may contain unintended errors Delia Lynch APRN 10/15/14 [id number] Cosigned by Nakul Lewis MD at 10/17/2014 5:54 PM EST Associated attestation - Nakul Lewis MD - 10/17/2014 5:54 PM EST This chart was completed using voice recognition technology and may contain unintended errors documented in this encounter Plan of Treatment Not on file documented as of this encounter Procedures Procedure Name Priority Date/Time Associated Diagnosis Comments XR FOOT LEFT AP LATERAL AND OBLIQUE BHAVIN 10/15/2014 6:11 PM EST DIFFERENTIAL STAT 10/15/2014 6:05 PM EST D-DIMER STAT 10/15/2014 6:05 PM EST CBC WITH DIFF STAT 10/15/2014 6:05 PM EST BASIC METABOLIC PANEL STAT 10/15/2014 6:05 PM EST documented in this encounter Results * MO US LOWER EXTREMITY VENOUS LEFT (10/16/2014 12:00 PM [...] right commonfemoral vein. us Nakul Lewis MD [facility] [place] VASCULAR ORDERABLES Fin al Result * XR FOOT LEFT AP LATERAL AND OBLIQUE (10/15/2014 6:11 PM EST) Anatomical Region Laterality Modality Foot Radiographic Manisha ging 10/15/2014 5:52 PM EST Impressions 10/15/2014 6:22 PM EST IMPRESSION: There is dorsal soft tissue swelling. There is no acute osseous finding. Narrative 10/15/2014 6:22 PM EST XR FOOT LEFT AP LATERAL AND OBLIQUE ??Oct 15, 2014 06:12:02 PM Clinical: -FOOT PAIN COMPARISONS: None. FINDINGS: There is normal alignment of the left foot. There are no acute fractures. There is dorsal soft tissue swelling at the level of the metatarsal bones. There is no subcutaneous gas. There is spur formation along the undersurface of the calcaneus. Procedure Note Arabella Gamez MD - 10/15/2014 XR FOOT LEFT AP LATERAL AND OBLIQUE Oct 15, 2014 06:12:02 PM Clinical: -FOOT PAIN COMPARISONS: None. FINDINGS: There is normal alignment of the left foot. There are no acute fractures.There is dorsal soft tissue swelling at the level of the metatarsal bones. There is nosubcutaneous gas. There is spur formation along the undersurface of the calcaneus. IMPRESSION: There is dorsal soft tissue swelling. There is no acute osseous finding. Nakul Lewis MD IMG DIAGNOSTIC IMAGING HARRY DAVILA Final Result * DIFFERENTIAL (10/15/2014 6:05 PM EST) Neut Percent 49.0 % [facility] Lymph Percent 37.4 % [facility] [place] Percent 8.6 % [facility] Eos Percent 3.6 % [facility] Baso Percent 1.4 % [facility] Neut# 4.7 1.8 - 7.7 x10(3)/mcL [facility] Lymph# 3.6 0.6 - 4.8 x10(3)/mcL [facility] Greenwood# 0.8 0.0 - 1.3 x10(3)/mcL [facility] Eos# 0.3 0.0 - 0.5 x10(3)/mcL [facility] Baso# 0.1 0.0 - 0.2 x10(3)/mcL [facility] Blood specimen (specimen) 10/15/2014 6:05 PM EST 10/15/2014 6:10 PM EST Nakul Lewis MD HEMATOLOGY ORDERABLES Final Result [facility] [address] [place] [address] * (ABNORMAL) BASIC METABOLIC PANEL (10/15/2014 6:05 PM EST) Sodium 137 136 - 145 mmol/L [facility] Potassium 3.6 3.5 - 5.0 mmol/L [facility] Chloride 100 98 - 107 mmol/L [facility] Total CO2 25 22 - 29 mmol/L [facility] Anion Gap 12 7 - 16 mmol/L [facility] Calcium 9.6 8.8 - 10.2 mg/dL [facility] Glucose Lvl 109(H) 82 - 100 mg/dL [facility] BUN 13 8 - 23 mg/dL [facility] Creatinine 0.57 0.51 - 1.30 mg/dL [facility] GFR Afr Am >60 [facility] Comment: GFR is estimated using creatinine, age, gender, and race. ??GFR has been validated for patients between 18 and 70 years of age. GFR has not been validated for women, patients with serious comorbid conditions, or persons with extremes of body size, muscle mass, or nutritional status. ??For additional information: ??www.kidney.org. GFR Non Afr Am >60 [facility] Blood specimen (specimen) UPPER LIMB STRUCTURE / Unknown 10/15/2014 6:05 PM EST 10/15/2014 6:10 PM EST Nakul Lewis MD CHEMISTRY ORDERABLES Edited Result - Final [facility] [address] [place] [address] * (ABNORMAL) D-DIMER (10/15/2014 6:05 PM EST) D-Dimer 261(H) <=230 ng/mL D-DU [facility] Comment: This test has been clinically validated by the logistic specialist and approved by the FDA for exclusion of pulmonary embolism (PE) or deep vein thrombosis (DVT) in patients with a low clinical risk assessment. ?? The cutoff for exclusion of PE and DVT is < 230 ng/mL D-Dimer Units. Increased levels of D-dimer are associated with PE, DVT, disseminated intravascular coagulation, malignancies, inflammation, sepsis, surgery, trauma, , and advanced patient age. [LU 2006 11:295(2): 199-207] Blood specimen (specimen) UPPER LIMB STRUCTURE / Unknown 10/15/2014 6:05 PM EST 10/15/2014 6:10 PM EST Nakul Lewis MD HEMATOLOGY ORDERABLES Final Result Performing Organization Address City/[facility]/ZIP Co de Phone Number [facility] [address] [place] [address] * CBC WITH AUTO DIFF (10/15/2014 6:05 PM EST) WBC 9.6 4.0 - 11.0 x10(3)/mcL [facility] RBC 4.85 3.80 - 5.10 x10(6)/mcL [facility] Hgb 14.9 12.0 - 15.6 gm/dL [facility] Hct 44.3 35.7 - 45.9 % [facility] MCV 91.4 82.5 - 99.8 fL [facility] MCH 30.7 27.0 - 34.3 pg [facility] MCHC 33.6 32.1 - 35.3 gm/dL [facility] RDW 13.5 11.5 - 15.0 % [facility] Platelet 277 144 - 423 x10(3)/mcL [facility] MPV 9.1 6.8 - 10.8 fL [facility] Blood specimen (specimen) UPPER LIMB STRUCTURE / Unknown 10/15/2014 6:05 PM EST 10/15/2014 6:10 PM EST Nakul Lewis MD HEMATOLOGY ORDERABLES Final Result Performing Organization Address [facility] Co de Phone Number [facility] [address] [place] [address] documented in this encounter Visit Diagnoses Diagnosis Left leg swelling- Primary Cellulitis of left foot Cellulitis and abscess of foot, except toes Left leg swelling documented in this encounter Administered Medications Inactive Administered Medications - up to 1 most recent administrations Medication Order MAR Action Action Date Dose Rate Site acetaminophen (TYLENOL) tablet 650 mg 650 mg, Oral, ONCE, 1 dose, On Mon10/15/14 at 1800, Maximum adult dose of acetaminophen is 4000 mg from all sources in 24 hours. Given 10/15/2014 6:14 PM EST 650 mg documented in this encounter Active and Recently Administered Medications Times are shown in EST. Scheduled Medication Order 10/13/2014 10/14/2014 10/15/2014 acetaminophen (TYLENOL) tablet 650 mg (COMPLETED) 650 mg, Oral, ONCE, 1 dose, On Mon10/15/14 at 1800, Maximum adult dose of acetaminophen is 4000 mg from all sources in 24 hours. 1814 (Given - Provid er: Lisset Joya RN) documented in this encounter Orders Medications Ordered That Robert ht Not Have Been Administered Count Last Ordered Date First Ordered Date acetaminophen (TYLENOL) tablet 650 mg 1 enoxaparin (LOVENOX) injection 108.9 mg 1 0 10/15/2014 documented in this encounter Care Teams Cook Chief Relationship Specialty Start Date End Date Nakul Jain MD [address] [place] [address] [place] [phone] PCP - General Psychiatry & Neurology-Neurology 04/09/12 11/29/18 documented as of this encounter
--- OUTSIDE RECORDS SUMMARY | 2024-07-07 14:48 | XMS_ITS | Encounter Summary ---
Author Organization [place] [address] Care Team Providers Care Glass Forming Engineer Name Role Phone Nakul Jain MD Primary Care Provider [phone] Reason for Visit * Mammography (Routine) - Closed Specialty Diagnoses / Procedures Referred By Contac t Referred To Contact Radiology Diagnoses Breast density Procedures MM MAMMO DIGITAL DIAGNOSTIC W CAD RIGHT Dillan Jain MD [address] [place] [address] [address] [place] [address] Phone: tel: fax: Referral ID Status Reason Start Date Expiration Date Visits Re quested Visits Authorized [id number] Closed 11/02/2015 11/01/2016 1 1 Encounter Details Date Type Department Care Team (Latest Contact Info) Description 11/18/2015 1:48 PM EDT - 11/18/2015 11:59 PM EDT Hospital Encounter [address] [place] [address] Dillan Jain MD [address] [place] [address] [address] [place] [address] Breast density Discharge Disposition: Home [...] MAMMO DIGITAL DIAGNOSTIC W CAD RIGHT Routine 11/18/2015 2:50 PM EDT Breast density documented in this encounter Results * MM MAMMO DIGITAL DIAGNOSTIC W CAD RIGHT (11/18/2015 2:50 PM EDT) Anatomical Region Laterality Modality Breast Right Mammography 11/19/2015 6:47 AM EDT Impressions 11/19/2015 9:19 AM EDT : Negative ??([id number]) ~ RECOMMENDATION: Routine screening mammogram in 1 [...] reviewed by a Radiologist and CAD. Narrative 11/19/2015 9:19 AM EDT Procedure:MM MAMMO DIGITAL DIAGNOSTIC W CAD RIGHT ~ Reason for exam: follow-up at short interval from prior study. ~ MM MAMMO DIGITAL DIAG CAD RIGHT CC and MLO view(s) were taken of the right breast. There are scattered fibroglandular densities. ??No suspicious calcifications. Compared with prior studies the most recent being ??05-20-15 ~ Dillan Jain MD IMG MAMMOGRAPHY ORDERABLE S Final Result documented in this encounter Visit Diagnoses Diagnosis Breast density Other sign and symptom in breast documented in this encounter Care Teams Glass Forming Engineer Relationship Specialty Start Date End Date Nakul Jain MD [address] [facility] [address] [place] [address] PCP - General Psychiatry & Neurology-Neurology 04/09/12 11/29/18 documented as of this encounter
--- OUTSIDE RECORDS SUMMARY | 2024-07-07 14:48 | XMS_ITS | Encounter Summary ---
Author Organization [place] [address] Care Team Providers Care Associate Financial Representative Name Role Phone Nakul Jain MD Primary Care Provider [phone] Reason for Referral * Mammography (Routine) - Closed Specialty Diagnoses / Procedures Referred By Primo johnson Referred To Contact Radiology Diagnoses Encounter for screening mammogram for malignant neoplasm of breast Procedures MM MAMMO DIGITAL SCREENING W CAD BILAT CHG SCREENING MAMMOGRAPHY BI 2-VIEW BREAST INC CAD W[place] SCR MAMMO BI INCL CAD Dillan Jain MD [address] [place] [address] [address] [place] [phone] Phone: tel: fax: Referral ID Status Reason Start Date Expiration Date Visits Re quested Visits Authorized [id number] Closed 10/20/2017 10/21/2019 1 1 Reason for Visit * Mammography (Routine) - Closed Specialty Diagnoses / Procedures Referred By Primo johnson Referred To Contact Radiology Diagnoses Encounter for screening mammogram for malignant neoplasm of breast Procedures MM MAMMO DIGITAL SCREENING W CAD BILAT CHG SCREENING MAMMOGRAPHY BI 2-VIEW BREAST INC CAD WY SCR MAMMO BI INCL CAD Dillan Jain MD [address] [place] [address] [address] [place] [address] Phone: tel: fax: Referral ID Status Reason Start Date Expiration Date Visits Re quested Visits Authorized [id number] Closed 10/20/2017 10/21/2019 1 1 Encounter Details Date Type Department Care Team (Latest Contact Info) Description 11/03/2017 1:30 PM EDT - 11/03/2017 11:59 PM EDT Hospital Encounter [facility] Mammography [address] [place] [phone] Dillan Jain MD [facility] [address] [place] [...] MAMMO DIGITAL SCREENING W CAD BILAT Routine 11/03/2017 1:57 PM EDT Encounter for screening mammogram for malignant neoplasm of breast documented in this encounter Results * MM MAMMO DIGITAL SCREENING W CAD BILAT (11/03/2017 1:57 PM EDT) Anatomical Region Laterality Modality Breast Bilateral Mammography 11/05/2017 10:1 1 AM EDT Impressions 11/07/2017 1:30 PM EDT : Negative ??([id number]) ~ RECOMMENDATION: Routine screening mammogram in 1 [...] reviewed by a Radiologist and CAD. Narrative 11/07/2017 1:30 PM EDT Procedure:MM MAMMO DIGITAL SCREENING W CAD BILAT ~ Reason for exam: screening, asymptomatic. ~ MM MAMMO DIG SCREEN CAD BILAT Bilateral CC and MLO view(s) were taken. Prior study comparison: November 04, 2016, bilateral MM MAMMO DIG SCREEN CAD BILAT performed at [facility]. There are scattered fibroglandular densities. ??No significant change. Compared with prior studies the most recent being ??11-04-16 ~ us Dillan Jain MD IMG MAMMOGRAPHY ORDERABLE S Final Result documented in this encounter Visit Diagnoses Diagnosis Encounter for screening mammogram for malignant neoplasm of breast Other screening mammogram documented in this encounter Care Teams Associate Financial Representative Relationship Specialty Start Date End Date Nakul Jain MD [address] [facility] [address] [place] [address] PCP - General Psychiatry & Neurology-Neurology 04/09/12 11/29/18 documented as of this encounter
--- OUTSIDE RECORDS SUMMARY | 2024-07-07 14:48 | XMS_ITS | Encounter Summary ---
Author Organization [place] [address] Care Team Providers Care Gas Plant Technician Name Role Phone Unavailable Primary Care Provider Unavailabl e Encounter Details Date Type Department Care Team (Late st Contact Info) Description 05/10/2001 10:40 AM EDT - 05/10/2001 11:59 PM EDT Hospital Encounter [facility] Billy Carlin A [address] [place] [address] [address] [place] [id number] Social History Tobacco Use Types Packs/Day Years [...]
--- OUTSIDE RECORDS SUMMARY | 2024-07-07 14:48 | XMS_ITS | Encounter Summary ---
Author Organization [place] [address] Care Team Providers Care Core Cleaner Name Role Phone Nakul Jain MD Primary Care Provider [phone] Encounter Details Date Type Department Care Team (Late st Contact Info) Description 04/25/2012 5:40 AM EDT - 04/25/2012 11:59 PM EDT Hospital Encounter Mobile Mammography Other Location View online schedule for mobile van location [phone] [place] [address] [place] [address] [address] [place] [address] Other screening mammogram Discharge Disposition: Home or [...] or Self Care documented in this encounter Progress Notes * Unknown, Unknown - 04/26/2012 5:21 PM EDT * Unknown, Unknown - 04/26/2012 5:21 PM EDT * Unknown, Unknown - 04/26/2012 5:21 PM EDT documented in this encounter Plan of Treatment Not on file documented as of this encounter Procedures Procedure Name Priority Date/Time Associated Diagnosis Comments MM MOBILE MAMMO DIGITAL SCREEN W CAD DOMINIC Routine 04/25/2012 8:55 AM EDT Other screening mammogram documented in this encounter Results * MM MOBILE MAMMO DIGITAL SCREEN W CAD DOMINIC (04/25/2012 8:55 AM EDT) Anatomical Region Laterality Modality Breast Mammography 04/26/2012 1:47 PM EDT Impressions 04/26/2012 2:53 PM EDT : No radiographic evidence of malignancy ([id number]) ~ RECOMMENDATION: Routine screening mammogram in 1 [...] reviewed by a Radiologist and CAD. Narrative 04/26/2012 2:53 PM EDT Procedure:MM MOBILE MAMMO DIGITAL SCREEN W CAD DOMINIC ~ Reason for exam: screening ??(asymptomatic). ~ MM MOBILE MAMMO DIGITAL SCREEN W CAD DOMINIC Bilateral CC and MLO view(s) were taken. There are scattered fibroglandular densities. ??Compared to prior studies the most recent being ??04-21-06. ~ Procedure Note Silviano Navarro MD - 04/26/2012 Procedure:MM MOBILE MAMMO DIGITAL SCREEN W CAD DOMINIC ~ Reason for exam: screening (asymptomatic). ~ MM MOBILE MAMMO DIGITAL SCREEN W CAD DOMINIC Bilateral CC and MLO view(s) were taken. There are scattered fibroglandular densities. Compared to prior studies the most recent being 04-21-06. ~ IMPRESSION: No radiographic evidence of malignancy ([id number]) ~ RECOMMENDATION: Routine screening mammogram in 1 [...] reviewed by a Radiologist and CAD. us Nakul Jain MD IMG MAMMOGRAPHY ORDERABLES Fin al Result documented in this encounter Visit Diagnoses Diagnosis Other screening mammogram documented in this encounter Care Teams Core Cleaner Relationship Specialty Start Date End Date Nakul Jain MD [address] [place] [address] [place] [phone] PCP - General Psychiatry & Neurology-Neurology 04/09/12 11/29/18 documented as of this encounter
--- OUTSIDE RECORDS SUMMARY | 2024-07-07 14:48 | XMS_ITS | Encounter Summary ---
Author Organization [place] [address] Care Team Providers Care Foxer Name Role Phone Dillan Jain MD Primary Care Provider [phone] Reason for Visit * Mammography (Routine) - Closed Specialty Diagnoses / Procedures Referred By Contac t Referred To Contact Radiology Diagnoses Encounter for screening mammogram for malignant neoplasm of breast Procedures MM MAMMO DIGITAL SCREENING W CAD BILAT MM MAMMO DIGITAL SCREENING W CAD BILAT Dillan Jain MD [address] [facility] [address] [place] [address] Phone: tel: fax: Referral ID Status Reason Start Date Expiration Date Visits Re quested Visits Authorized [id number] Closed 10/22/2018 10/22/2020 1 1 Encounter Details Date Type Department Care Team (Latest Contact Info) Description 12/20/2018 1:26 PM EDT - 12/20/2018 11:59 PM EDT Hospital Encounter [address] [address] Encounter for screening mammogram for malignant neoplasm [...] MAMMO DIGITAL SCREENING W CAD BILAT Routine 12/20/2018 1:57 PM EDT Encounter for screening mammogram for malignant neoplasm of breast documented in this encounter Results * MM MAMMO DIGITAL SCREENING W CAD BILAT (12/20/2018 1:57 PM EDT) Anatomical Region Laterality Modality Breast Bilateral Mammography 12/20/2018 4:23 PM EDT Impressions 12/20/2018 4:23 PM EDT Negative ??([id number]) ~ RECOMMENDATION: Routine screening mammogram in 1 [...] reviewed by a Radiologist and CAD. Narrative 12/20/2018 4:23 PM EDT Procedure:MM MAMMO DIGITAL SCREENING W CAD BILAT ~ Reason for exam: screening, asymptomatic. Z12.31-Encounter for screening mammogram for malignant neoplasm of [id number]-[id number] ~ MM MAMMO DIG SCREEN CAD BILAT Bilateral CC and MLO view(s) were taken. There are scattered fibroglandular densities. Prior study comparison: Compared with prior studies the most recent being 11/03/17, 11/04/16 No mammographic evidence of malignancy. ~ Procedure Note Esperanza Lewis MD - 12/20/2018 Procedure:MM MAMMO DIGITAL SCREENING W CAD BILAT ~ Reason for exam: screening, asymptomatic. Z12.31-Encounter for screening mammogram for malignant neoplasm of [id number]-[id number]-25-CM ~ MM MAMMO DIG SCREEN CAD BILAT Bilateral CC and MLO view(s) were taken. There are scattered fibroglandular densities. Prior study comparison: Compared with prior studies the most recentbeing 11/03/17, 11/04/16 No mammographic evidence of malignancy. ~ IMPRESSION: Negative ([id number]) ~ RECOMMENDATION: Routine screening mammogram in 1 [...] mammogram documented in this encounter Care Teams Foxer Relationship Specialty Start Date End Date Dillan Jain MD [facility] [place] [address] [address] [place] [address] PCP - General Family Medicine 11/30/18 documented as of this encounter
--- OUTSIDE RECORDS SUMMARY | 2024-07-07 14:48 | XMS_ITS | Encounter Summary ---
Author Organization [place] [address] Care Team Providers Care Licensed Occupational Therapy Assistant Name Role Phone Nakul Jain MD Primary Care Provider [phone] Reason for Visit * Mammography (Routine) - Closed Specialty Diagnoses / Procedures Referred By Contac t Referred To Contact Radiology Diagnoses Other screening mammogram Procedures MM MOBILE MAMMO DIGITAL SCREEN W CAD DOMINIC Dillan Jain MD [address] [place] [address] [address] [place] [address] Phone: tel: fax: Referral ID Status Reason Start Date Expiration Date Visits Re quested Visits Authorized [id number] Closed 04/08/2015 04/07/2016 1 1 Encounter Details Date Type Department Care Team (Latest Contact Info) Description 04/28/2015 10:00 AM EDT - 04/28/2015 11:59 PM EDT Hospital Encounter Mobile Mammography Other Location View online schedule for mobile van location [phone] Dillan Jain MD [address] [place] [address] [address] [place] [address] Other screening mammogram Discharge Disposition: [...] MAMMO DIGITAL SCREEN W CAD DOMINIC Routine 04/28/2015 10:11 AM EDT Other screening mammogram documented in this encounter Results * MM MOBILE MAMMO DIGITAL SCREEN W CAD DOMINIC (04/28/2015 10:11 AM EDT) Anatomical Region Laterality Modality Breast Mammography 04/29/2015 3:16 PM EDT Impressions 04/30/2015 3:53 PM EDT : Incomplete-need additional imaging evaluation ([id number]) ~ RECOMMENDATION: Special view mammogram and ultrasound of the right breast. ~ * The patient with a palpable [...] reviewed by a Radiologist and CAD. Narrative 04/30/2015 3:53 PM EDT Procedure:MM MOBILE MAMMO DIGITAL SCREEN W CAD DOMINIC ~ Reason for exam: screening ??(asymptomatic). ~ MM MOBILE MAMMO DIGITAL SCREEN W CAD DOMINIC Bilateral CC and MLO view(s) were taken. There are scattered fibroglandular densities. ??There is a less than 1 cm. oval density with partially circumscribed and partially obscured margins in the anterior 9:00 position of the right breast. No significant change on the left. Compared to prior studies the most recent being 04-23-14 ~ Dillan Jain MD IMG MAMMOGRAPHY ORDERABLE S Final Result documented in this encounter Visit Diagnoses Diagnosis Other screening mammogram documented in this encounter Care Teams Licensed Occupational Therapy Assistant Relationship Specialty Start Date End Date Nakul Jain MD [address] [place] [address] [place] [phone] PCP - General Psychiatry & Neurology-Neurology 04/09/12 11/29/18 documented as of this encounter
--- OUTSIDE RECORDS SUMMARY | 2024-07-07 14:48 | XMS_ITS | Encounter Summary ---
Author Organization [place] [address] Care Team Providers Care Patrol Captain Name Role Phone Unavailable Primary Care Provider Unavailabl e Encounter Details Date Type Department Care Team (Late st Contact Info) Description 01/19/2001 Hospital Encounter [facility] Generic, Historical Provider Social History Tobacco Use Types Packs/Day Years [...]
--- OUTSIDE RECORDS SUMMARY | 2024-07-07 14:48 | XMS_ITS | Encounter Summary ---
Author Organization [place] [address] Care Team Providers Care Notcher Name Role Phone Unavailable Primary Care Provider Unavailabl e Encounter Details Date Type Department Care Team (Late st Contact Info) Description 03/22/2002 12:11 PM EDT - 03/22/2002 3:30 PM EDT Hospital Encounter [facility] DEM[facility] Carlin Billy A [address] [facility] [address] [place] [address] Social History Tobacco Use Types Packs/Day Years Used Date Smoking Tobacco: Never Assessed Comments Unknown Sex and Gender Information Value Date Recorded Sex Assigned at Not on file Legal Sex Female 5:26 AM EDT Gender Identity Not on file Sexual Orientation Not on file documented as of this encounter H&P Notes * Unknown, U - 04/04/2010 6:36 PM EDT documented in this encounter Plan of Treatment Not on file documented as of this encounter Visit Diagnoses Not on filedocumented in this encounter
--- OUTSIDE RECORDS SUMMARY | 2024-07-07 14:48 | XMS_ITS | Encounter Summary ---
Author Organization [place] [address] Care Team Providers Care Sr. Manager Corporate Communications Name Role Phone Unavailable Primary Care Provider Unavailabl e Encounter Details Date Type Department Care Team (Late st Contact Info) Description 03/12/2002 11:33 AM EDT - 03/12/2002 3:45 PM EDT Hospital Encounter [facility] Katia Bean MD [address] [place] [phone] Social History Tobacco Use Types Packs/Day Years [...]
--- OUTSIDE RECORDS SUMMARY | 2024-07-07 14:48 | XMS_ITS | Encounter Summary ---
Author Organization [place] [address] Care Team Providers Care Underwriting Consultant Name Role Phone Nakul Jain MD Primary Care Provider Reason for Referral * Mammography (Routine) - Closed Specialty Diagnoses / Procedures Referred By Primo johnson Referred To Contact Radiology Diagnoses Visit for screening mammogram Procedures MM MAMMO DIGITAL SCREENING W Dillan Trinidad MD [address] [place] [address] [place] [phone] Phone: tel: fax: Referral ID Status Reason Start Date Expiration Date Visits Re quested Visits Authorized [id number] Closed 11/01/2016 11/01/2018 1 1 Reason for Visit * Mammography (Routine) - Closed Specialty Diagnoses / Procedures Referred By Primo johnson Referred To Contact Radiology Diagnoses Visit for screening mammogram Procedures MM MAMMO DIGITAL SCREENING W Dillan Trinidad MD [address] [place] [address] [address] [place] [address] Phone: tel: fax: Referral ID Status Reason Start Date Expiration Date Visits Re quested Visits Authorized [id number] Closed 11/01/2016 11/01/2018 1 1 Encounter Details Date Type Department Care Team (Latest Contact Info) Description 11/04/2016 1:26 PM EDT - 11/04/2016 11:59 PM EDT Hospital Encounter [address] [place] [address] Dillan Jain MD [address] [facility] [address] [place] [address] Visit for screening mammogram Discharge Disposition: Home or Self [...] MAMMO DIGITAL SCREENING W CAD BILAT Routine 11/04/2016 1:38 PM EDT Visit for screening mammogram documented in this encounter Results * MM MAMMO DIGITAL SCREENING W CAD BILAT (11/04/2016 1:38 PM EDT) Anatomical Region Laterality Modality Breast Bilateral Mammography 11/07/2016 5:39 AM EDT Impressions 11/08/2016 8:16 AM EDT : Negative ??([id number]) ~ RECOMMENDATION: Routine screening mammogram in 1 year. ~ DISCLAIMER * The patient with a palpable abnormality, [...] reviewed by a Radiologist and CAD. Narrative 11/08/2016 8:16 AM EDT Procedure:MM MAMMO DIGITAL SCREENING W CAD BILAT ~ Reason for exam: screening, asymptomatic. ~ MM MAMMO DIG SCREEN CAD BILAT Bilateral CC and MLO view(s) were taken. There are scattered fibroglandular densities. ??No suspicious calcifications. Compared with prior studies the most recent being 11-18-15 ~ us Dillan Jain MD IMG MAMMOGRAPHY ORDERABLE S Final Result documented in this encounter Visit Diagnoses Diagnosis Visit for screening mammogram Other screening mammogram documented in this encounter Care Teams Underwriting Consultant Relationship Specialty Start Date End Date Nakul Jain MD [address] [place] [address] [address] [place] [phone] PCP - General Psychiatry & Neurology-Neurology 04/09/12 11/29/18 documented as of this encounter
--- OUTSIDE RECORDS SUMMARY | 2024-07-07 14:48 | XMS_ITS | Encounter Summary ---
Author Organization [place] [address] Care Team Providers Care Departmental Shipping Clerk Name Role Phone Unavailable Primary Care Provider Unavailabl e Encounter Details Date Type Department Care Team (Late st Contact Info) Description 05/15/2001 6:25 AM EDT - 05/15/2001 9:50 AM EDT Hospital Encounter [facility] Billy Carlin A [address] [facility] [address] [place] [address] Social History Tobacco Use Types Packs/Day Years Used Date Smoking Tobacco: Never Assessed Comments Unknown Sex and Gender Information Value Date Recorded Sex Assigned at Not on file Legal Sex Female 5:26 AM EDT Gender Identity Not on file Sexual Orientation Not on file documented as of this encounter H&P Notes * Unknown, U - 04/01/2010 3:19 PM EDT documented in this encounter Plan of Treatment Not on file documented as of this encounter Visit Diagnoses Not on filedocumented in this encounter
--- OUTSIDE RECORDS SUMMARY | 2024-07-07 14:48 | XMS_ITS | Encounter Summary ---
Author Organization [place] [address] Care Team Providers Care Strapper Name Role Phone Unavailable Primary Care Provider Unavailabl e Encounter Details Date Type Department Care Team (Late st Contact Info) Description 03/06/2002 Hospital Encounter [facility] Generic, Historical Provider [...]
--- OUTSIDE RECORDS SUMMARY | 2024-07-07 14:48 | XMS_ITS | Encounter Summary ---
Author Organization [place] [address] Care Team Providers Care Ethylene Plant Helper Name Role Phone Unavailable Primary Care Provider Unavailabl e Encounter Details Date Type Department Care Team (Late st Contact Info) Description 05/06/2001 10:35 AM EDT - 05/06/2001 11:59 PM EDT Hospital Encounter [facility] RAD[facility]OLOG[facility] [place] [address] [address] [place] [address] Social History Tobacco Use Types Packs/Day [...]
--- OUTSIDE RECORDS SUMMARY | 2024-07-07 14:48 | XMS_ITS | Encounter Summary ---
Author Organization [facility] [place] [address] Care Team Providers Care Manager Application Name Role Phone Nakul Jain MD Primary Care Provider [phone] Reason for Visit * Reason Onset Date Comments Abnormal Radiology 05/01/2015 Encounter Details Date Type Department Care Team (Late st Contact Info) Description 05/01/2015 Telephone [facility] [address] [place] [address] Dyan Comer, Clerical Staff Abnormal Radiology Social History Tobacco Use Types Packs/Day Years Used Date Smoking Tobacco: Never Assessed Comments Unknown Sex and Gender Information Value Date Recorded Sex Assigned at Not on file Legal Sex Female 5:26 AM EDT Gender Identity Not on file Sexual Orientation Not on file documented as of this encounter Miscellaneous Notes * Telephone Encounter - Kathy Villa RN - 05/01/2015 4:29 PM EDT Patient returned call and she was told of need for additional views. She was transferred to [facility]. Additional imaging scheduled 05/20 GRT. * Telephone Encounter - Kathy Villa RN - 05/01/2015 4:10 PM EDT Patient returned call and left message. Attempt to return call unsuccessful. Message left asking patient to contact [phone] within next 15 minutes or after 8:00 am on 05/04. * Telephone Encounter - Kathy Villa, BAO - 05/01/2015 2:12 PM EDT Attempted contact to notify patient of need for additional views, using all numbers provided in EPIC. Message left asking patient to contact NN at [phone]. * Telephone Encounter - Dyan Comer, Clerical Staff - 05/01/2015 10:34 AM EDT Insurance Medicare PCP is Dr. Dillan Jain documented in this encounter Plan of Treatment Not on file documented as of this encounter Visit Diagnoses Not on filedocumented in this encounter Care Teams Manager Application Relationship Specialty Start Date End Date Nakul Jain MD [address] [place] [address] [place] [phone] PCP - General Psychiatry & Neurology-Neurology 04/09/12 11/29/18 documented as of this encounter
--- OUTSIDE RECORDS SUMMARY | 2024-07-07 14:48 | XMS_ITS | Encounter Summary ---
Author Organization [place] [address] Care Team Providers Care Feltmaker Name Role Phone Unavailable Primary Care Provider Unavailabl e Encounter Details Date Type Department Care Team (Late st Contact Info) Description 04/21/2006 3:42 PM EDT - 04/21/2006 11:59 PM EDT Hospital Encounter [facility] Kingsley Aaron [address] [facility] [address] [place] [address] Social History Tobacco Use Types Packs/Day Years Used Date Smoking Tobacco: Never Assessed Comments Unknown Sex and Gender Information Value Date Recorded Sex Assigned at Not on file Legal Sex Female 5:26 AM EDT Gender Identity Not on file Sexual Orientation Not on file documented as of this encounter Plan of Treatment Scheduled Orders Name Type Priority Associated Diagnoses Orde r Schedule MM MAMMO SCREEN W/CAD PANEL Imaging Routine Once for 1 Occur rences starting 10/28/2009 until 10/28/2009, 1 completed documented as of this encounter Procedures Procedure Name Priority Date/Time Associated Diagnosis Comments MV MAMMO SCREEN W/CAD PANEL Routine 04/21/2006 11:55 AM EDT documented in this encounter Results * MM MAMMO SCREEN W/CAD PANEL (04/21/2006 11:55 AM EDT) Anatomical Region Laterality Modality Other 04/21/2006 11:5 5 AM EDT Narrative 05/16/2006 3:49 PM EDT Procedure-MV MAMMO SCREEN W/CAD PANEL Mobile Screening Mammogram Bilateral CC and MLO view(s) were taken. Prior study comparison- March 06, 2002, mammogram performed at [facility]. ??January 19, 2001, mammogram performed at [facility]. There are scattered fibroglandular densities. ??No significant changes when compared with prior studies. IMPRESSION- No radiographic evidence of malignancy ? ([id number]) RECOMMENDATION- Routine screening mammogram in 1 year. * The patient with a palpable abnormality, unexplained by breast imaging, should be managed on clinical basis by the attending physician. * Breast imaging has a false negative rate of 15%. * The patient was notified by mail of the results of this examination. The mammogram was reviewed by a Radiologist and CAD. ? Lockstitch Sleeve Maker- RAFI URBANO ? Reading Radiologist- ABDI KHOURY ? Released Date Time- 05/16/062134 Procedure Note Abdi Khoury - 10/28/2009 Procedure-MV MAMMO SCREEN W/CAD PANEL Mobile Screening Mammogram Bilateral CC and MLO view(s) were taken. Prior study comparison- March 06, 2002, mammogram performed at [facility]. January 19, 2001, mammogram performed at [facility]. There are scattered fibroglandular densities. No significant changes when compared with prior studies. IMPRESSION- No radiographic evidence of malignancy ([id number]) RECOMMENDATION- Routine screening mammogram in 1 year. * The patient with a palpable abnormality, unexplained by breast imaging, should be managed on clinical basis by the attending physician. * Breast imaging has a false negative rate of 15%. * The patient was notified by mail of the results of this examination. The mammogram was reviewed by a Radiologist and CAD. Lockstitch Sleeve Maker- RAFI URBANO Reading Radiologist- ABDI KHOURY MD Released Date Time- 05/16/062134 [facility] documented in this encounter Visit Diagnoses Not on filedocumented in this encounter
--- OUTSIDE RECORDS SUMMARY | 2024-07-07 14:48 | XMS_ITS | Referral Summary ---
Author Organization [facility] Address [facility] [place] [address] Phone Care Team Providers Care Steward Racetrack Name Role Phone Dillan Jain MD Primary Care Provider [phone] Allergies No known active allergies Medications No known medications Social History Tobacco Use Types Packs/Day Years Used Date Smoking Tobacco: Never Assessed Comments Unknown Sex and Gender Information Value Date Recorded Sex Assigned at Not on file Legal Sex Female 5:26 AM EDT Gender Identity Not on file Sexual Orientation Not on file Last Filed Vital Signs Vital Sign Reading [...] 10/15/2014 5:41 PM EST Plan of Treatment Not on file Procedures Procedure Name Priority Date/Time Associated Diagnosis [...] EDT Impressions 12/04/2023 3:40 PM EDT Negative ??([id number]) ~ RECOMMENDATION: Routine screening mammogram in 1 [...] the next mammogram, in accordance with the [place] [employer] and the Society of Breast Imaging recommendations. Narrative 12/04/2023 3:40 PM EDT Procedure:MM MAMMO DIGITAL LIGIA SCREEN BILAT ~ Reason for exam: screening, asymptomatic. Z12.31-Encounter for screening mammogram for malignant neoplasm of [id number]-[id number]-27-CM ~ MM MAMMO DIGITAL LIGIA SCREEN BILAT [...] for screening mammogram for malignant neoplasm of [id number]-CM ~ MM MAMMO DIGITAL LIGIA SCREEN BILAT Bilateral CC and MLO view(s) were taken. There are scattered fibroglandular densities. Prior study comparison: Compared with prior studies the most recentbeing 01/26/22, 01/22/21 No mammographic evidence of malignancy. ~ IMPRESSION: Negative ([id number]) ~ RECOMMENDATION: Routine screening mammogram in 1 [...] the next mammogram, in accordance with the [place] and the Society of Breast Imaging recommendations. Dillan Jain MD IMG MAMMOGRAPHY ORDERABLE S Final Result from Last 3 Months or Most Recently Relevant to Health Maintenance Insurance MEDICARE [place] PART A AND B [place] [employer] [facility] Care Teams Steward Racetrack Relationship Specialty Start Date End Date Dillan Jain MD [address] [facility] [address] [place] [address] PCP - General Family Medicine 11/30/18
--- OUTSIDE RECORDS SUMMARY | 2024-07-07 14:49 | XMS_ITS | Encounter Summary ---
[facility] Address [address] [place] [address] Care Team Providers Care Repairer Art Objects Name Role Phone Dillan Jain MD Primary Care Provider [phone] Encounter Details Date Type Department Care Team (Latest Contact Info) Description 06/05/2024 Travel Social History Tobacco Use Types Packs/Day Years Used Date Smoking Tobacco: Never Smokeless Tobacco: Never Alcohol Use Standard Drinks/Week Comments Not Currently 0 (1 standard drink = 0.6 oz pur e alcohol) Abuse Screen Answer Date Recorded Unsafe at Home or Work/School Not on file Feels Threatened by Someone? Not on file 04/2023 Does Anyone Keep You from Co ntacting Others or Doint Things Outside the Home? Not on file 05/29/2023 Physical Sign of Abuse Present Not on file 1 Housing Stability Answer Date Recorded Current Living Arrangements Not on file 04/2023 Potentially Unsafe Housing Conditions Not on barb e 05/29/2023 Family and Community Support Answer Gagandeep e Recorded Help with Day-to-Day Activities Not on file 05/29/2023 Lonely or Isolated Not on file 05/29/2023 Employment Answer Date Recorded Do you want help finding or keeping work or a erin b? Not on file 05/29/2023 Disabilities Answer Date Recorded Concentrating, Remembering, or Making Decisions Difficulty Not on file 05/29/2023 Doing Errands Independently Difficulty Not on fi le 05/29/2023 Education Answer Date Recorded Help with school or training? Not on file Preferred Language Not on file 05/29/2023 Comments Unknown Sex and Gender Information Value Date Recorded Sex Assigned at Female 05/29/2024 9:02 AM EDT Legal Sex Female 1:01 PM EDT Gender Identity Female 05/29/2024 9:02 AM EDT Sexual Orientation Straight 05/29/2024 9: 02 AM EDT documented as of this encounter Plan of Treatment Upcoming Encounters Date Type Department Care Team (Late st Contact Info) Description 12/04/2024 2:45 PM EDT Office Visit [facility] [address] [facility] [address] [place] [id number] DO [address] [facility] [address] [place] [address] documented as of this encounter Visit Diagnoses Not on filedocumented in this encounter Care Teams Repairer Art Objects Relationship Specialty Start Date End Date Dillan Jain MD [address] [facility] [address] [place] [address] PCP - General Family Medicine 05/28/24 documented as of this encounter
--- OUTSIDE RECORDS SUMMARY | 2024-07-07 14:49 | XMS_ITS | Continuity of Care Document ---
Author Organization [facility] Address [address] [facility] [address] [place] [address] Care Team Providers Care Dna Sequencing Associate Name Role Phone ABDI GUTIÉRREZ Primary Care Provider [phone] ABDI GUTIÉRREZ Referring Provider Assessment Encounter Date Assessment Date Assessment LastModified by Organization Details LastModified Time 05/06/2024 05/06/2024 Assessment: Sanjana Pierson is a 69-year-old presenting to the clinic for evaluation of low back pain x 5 years. Patient presents with disc containing lumbar MRI completed on 02/20/2024 through [facility] along with complete lumbar xrays completed through [facility] on 02/05/2024. Patient notes low back pain bilaterally at the waist line with radiation up toward the braline. Patient denies radiation of pain to bilateral hips or lower extremities. Review of imaging, there is no clear evidence to explain her pain. 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 We will try to obtain notes from Dr. Reddy office when she received her injections in 2019 for clarification of the levels. Will refer patient back to Dr. Reddy for completion of L3-4 SAIDA, and spinal cord stimulator discussion if no improvement with the injection is noted. Patient to follow-up with our clinic as needed. Imaging: I personally reviewed the imaging with Dr. Hightower and discussed the below findings. Lumbar MRI completed on 02/20/2024 through [facility] and lumbar x-rays completed through [facility] on 02/05/2024. Cystogram stenosis is appreciated to L3-4, though spinal fluid is still appreciated surrounding the nerves. Plan: Refer to Dr. Reddy for L3-4 SAIDA and potential spinal cord stimulator discussion Disc was returned to patient. olohre Not available 05/06/2024 10:41:19 Plan of Treatment Reminders Order Date Submit Date Provider Last Modified By Organization Details Last Modified Time Details Appointments None record ed. Lab None record ed. Referral None record ed. Procedures None record ed. Surgeries None record ed. Imaging None record ed. Medication Orders None record ed. Patient TargetsNo targets recorded. Patient InstructionsNo instructions recorded. Reason for Referral None Reported. Results Created Date Observation Date Name Description Value Unit Range Abnormal Flag Note LastModifiedBy Organization Detail LastModifiedTime 05/07/20 24 02/20/2024 MRI, lumba r spine , w/o contr ast No observ ation record ed. BARCODE Not Available 2023 14:00:13 Result Notes None recorded. Medical Equipment None Reported. Allergies Allergen ID Allergen Name Allergen Category Reaction Reaction Severity Criticality Documentation Date Start Date Code Code System Note Provider Name and Address Organization Details Recorded Time [id number] codeine medicatio n Not available Not available Not available 05/06/2024 2670 [facility] 09:35:48 355801 naproxen medicatio n Not available Not available Not available 05/06/2024 7258 [facility] 4 09:35:54 Medications Name Sig Start Date Stop Date Status Note LastModified by Organization Details LastModified Time losartan 50 mg tablet TAKE 1 TABLET BY MOUTH ONCE DAILY active Not Available Not Available No t Available celecoxib 200 mg capsule TAKE 1 CAPSULE BY MOUTH ONCE DAILY WITH FOOD active Not Available Not Available No t Available atorvastatin 40 mg tablet TAKE 1 TABLET BY MOUTH ONCE DAILY active Not Available Not Available No t Available primidone 50 mg tablet TAKE 1 TABLET BY MOUTH TWICE DAILY FOR 90 DAYS active Not Available Not Available No t Available metoprolol succinate ER 50 mg tablet,extende d release 24 hr TAKE 1 TABLET BY MOUTH ONCE DAILY active Not Available Not Available No t Available potassium chloride ER 10 mEq tablet,extende d release TAKE 1 TABLET BY MOUTH ONCE DAILY active Not Available Not Available No t Available allopurinol 100 mg tablet TAKE 1 TABLET BY MOUTH ONCE DAILY active Not Available Not Available No t Available tramadol 50 mg tablet TAKE 1 TABLET BY MOUTH THREE TIMES DAILY NEEDED active Not Available Not Available No t Available spironolactone 25 mg tablet TAKE 1 TABLET BY MOUTH ONCE DAILY FOR 90 DAYS active Not Available Not Available No t Available terbinafine HCl 250 mg tablet TAKE 1 TABLET BY MOUTH ONCE DAILY FOR 42 DAYS active Not Available Not Available No t Available gabapentin 300 mg capsule TAKE 1 CAPSULE BY MOUTH TWICE DAILY active Not Available Not Available No t Available triamterene 37.5 mg-hydrochloro thiazide 25 mg tablet TAKE 1 TABLET BY MOUTH ONCE DAILY FOR 90 DAYS active Not Available Not Available No t Available hydroxychloroq uine 200 mg tablet TAKE 1 TABLET BY MOUTH TWICE DAILY active Not Available Not Available No t Available methylpredniso lone 4 mg tablets in a dose pack TAKE BY MOUTH DIRECTED ON INSIDE OF PACKAGE active Not Available Not Available No t Available Vitals Date Recorded Body height Body mass index (BMI) Body weight Systolic blood pressure Diastolic blood pressure Provider Name and Address Organization Details Last Updated DateTime 05/06/2024 162.56 cm 43.8 kg/m2 918051.0 5 g 130 mm[Hg] 82 mm[Hg] Tamra Youssef [facility] 09:35:17 Social History None recorded. Functional Status None recorded. Mental Status None recorded. Family History Nothing Reported. Medical History No medical history recorded. Gynecological HistoryNo gynecological history recorded. Obstetrics History GPAL:G 0 P 0 0 0 0 Past Encounters Encounter ID Performer Location Encounter Start Date Encounter Closed Date Diagnosis/Indication Diagnosis SNOMED-CT Code Diagnosis ICD10 Code [id number] LISA ECHEVERRIA PA-C NEUROSURG [facility] [address] [facility] [place] [address] 05/06/2024 09:29:54 05/07/2024 04:26:58 Low back pain 920657606 M54.50 Health Concerns Section Related Observation LastModified by Organization Detai ls LastModified Time None Recorded Concern Status LastModified by Organization Details LastModified Time None Recorded Payers Encounter Date Sequence Insurance Name Policy Number Policy Lofton Covered Member ID Loft[place] Member ID Guarantor Name 05/06/2024 1 [place]ARE[place]ICARE[place] Sanjana Pierson [id number] Sanjana Pierson 05/06/2024 2 [employer] SUPPLEMENTAL - [employer] (MEDICARE SUPPLEMENT) Sanjana Pierson [id number] Sanjana Pierson Notes Date Note Type Note Provider Name and Address Organization Details Recorded Time 05/06/2024 text/html Sanjana Pireson is a 69-year-old presenting to the clinic for evaluation of low back pain x 5 years. Patient presents with disc containing lumbar MRI completed on 02/20/2024 through [facility] along with complete lumbar xrays completed through [facility] on 02/05/2024. Patient notes low back pain bilaterally at the waist line with radiation up toward the braline. Patient denies radiation of pain to bilateral hips or lower extremities. Patient notes bilateral posterior hip pain, though notes she has a history of hip replacement around 15 years ago. Patient denies numbness or paresthesia to lower extremities as well as bowel/bladder incontinence and saddle anesthesia. Patient notes bilateral thigh weakness with standing for extended period of time. Patient notes her pain improves with lying flat, though worsens with ambulation. Patient denies recent physical therapy. Patient underwent injections with Dr. Reddy in 2019, though levels are unknown. Patient currently takes gabapentin twice daily, Tylenol and tramadol for pain relief. Patient was seen by both Dr. Hightower and I in clinic today. LISA ECHEVERRIA PA-C [address] [place], [address], [place] - [facility] 05/06/2024 10:41:23 OBGyn Episode No OBEpisode recorded.
--- OUTSIDE RECORDS SUMMARY | 2024-07-07 14:49 | XMS_ITS | Clinical Summary ---
[facility] Address [address] [place] [address] Care Team Providers Care Agricultural Produce Commission Agent Name Role Phone Dillan Jain MD Primary Care Provider [phone] Allergies Active Allergy Reactions Criticality Noted Date Comments Acetaminophen Provider Review Needed 05/21/2024 Codeine Provider Review Needed 05/21/2024 Naproxen Sodium Provider Review Needed 05/21/20 Oxycodone Hcl Provider Review Needed 05/21/2024 Medications allopurinol (ZYLOPRIM) 100 MG tablet Take 1 tablet by mouth Daily. Active atorvastatin (LIPITOR) 40 MG tablet Take 1 tablet by mouth Daily. Active calcium carbonate (OS-GUY) 600 MG tablet Take 1 tablet by mouth Daily. Active esomeprazole (nexIUM) 20 MG capsule Take 1 capsule by mouth Every Morning Before Breakfast. 1 hour before a meal swallowing whole. Do not crush or chew granules Active potassium chloride 10 MEQ CR tablet Take 1 tablet by mouth Daily. Active primidone (MYSOLINE) 50 MG tablet Take 2 tablets by mouth Daily. Active spironolactone (ALDACTONE) 25 MG tablet Take 1 tablet by mouth Daily. Active Aspirin (Vazalore) 81 MG capsule Take 1 capsule by mouth Daily. Active montelukast (SINGULAIR) 10 MG tablet Take 1 tablet by mouth Every Night. Active gabapentin (NEURONTIN) 300 MG capsule TAKE 1 CAPSULE BY MOUTH TWICE DAILY 4 Active metoprolol succinate XL (TOPROL-XL) 50 MG 24 hr tablet TAKE 1 TABLET BY MOUTH ONCE DAILY Active traMADol (ULTRAM) 50 MG tablet TAKE 1 TABLET BY MOUTH THREE TIMES DAILY NEEDED Active losartan (COZAAR) 50 MG tablet take 1 tablet by mouth once daily 4 Active triamterene-hyd rochlorothiazid e (MAXZIDE-25) 37.5-25 MG per tablet TAKE 1 TABLET BY MOUTH ONCE DAILY FOR 90 DAYS Active hydroxychloroqu ine (PLAQUENIL) 200 MG tablet Take 1 tablet by mouth 2 (Two) Times a Day. 60 tablet 5 4 Active Active Problems Problem Noted Date Diagnosed Date High risk medication use 06/05/2024 Assessment & Plan (06/05/2024 3:01 PM EDT): * Plaquenil 200 mg PO BID for SLE * Started 11/08/22 Patient's taking hydroxychloroquine should have an eye exam at least once/year to monitor for signs of medication toxicity SLE (systemic lupus erythematosus) 05/21/2024 Assessment & Plan (06/05/2024 2:56 PM EDT): * 2008: VALENTINA 1:80 speckled * 10/25/22: VALENTINA positive, DS DNA 26 (0-4), Longo negative, SSA and SSB Normal, RN DOCUMENT IMPROVEMENT SPECIALIST normal, chromatin normal, Erin 1 normal, Centromere normal, SCL 70 normal, Ribosomal P Normal, ESR 46 (0-30) * Medications/treatments/interventions tried include: Tylenol, Advil, meloxicam, she saw Jayson Pack MD (Stencil Maker) in 2008, She has seen an orthopaedic surgeon, she has done physical therapy, she had hip replacement surgery, she had arthroscopic knee surgery, Percocet (Allergic/intolerant), Aleve (allergic/Intolerant), allopurinol, gabapentin, shoulder injection, she saw a spray painter, she had back injections, Plaquenil, Tramadol, knee injection 1. Check labs 2. Continue/refill Plaquenil 3. We gave her a handout on Lupus to take home and review 4. Follow up in 6 months 5. She seems well today Osteoarthritis 05/21/2024 Assessment & Plan (06/05/2024 2:56 PM EDT): 1. Weight loss would be helpful 2. Tylenol PRN is ok as directed 3. She has done some physical therapy 4. She has taken NSAIDS PRN 5. She is allergic/intolerant of Percocet 6. She saw orthopaedic surgeons 7. She had hip replacement surgery 8. She had arthroscopic knee surgery 9. She has taken gabapentin for neuropathic pain 10. She has seen pain management specialists 11. She had a back injection 12. She has had shoulder injection as well 13. She is taking Tramadol 14. She has had knee injection Encounters Date Type Department Care Team Description 06/05/2024 2:45 PM EDT Office Visit [facility] [address] [facility] [address] [place] [address] DO Systemic lupus erythematosus, unspecified SLE type, unspecified organ involvement status (Primary Dx); High risk medication use; Primary osteoarthritis involving multiple joints 06/05/2024 Travel from Last 3 Months Family History Medical History Relation Name Comments Arthritis Father NON HODGKINS LYMPHOMA Mother Multiple myeloma Sister Relation Name Status Comments Father Mother Sister Social History Tobacco Use Types Packs/Day Years Used Date Smoking Tobacco: Never Smokeless Tobacco: Never Tobacco Cessation:Counseling Given: Not Answered Alcohol Use Standard Drinks/Week Comments Not Currently [...] Orientation Straight 05/29/2024 9: 02 AM EDT Last Filed Vital Signs Vital Sign Reading Time Taken Comments Blood Pressure 126/74 06/05/2024 2:49 PM EDT Pulse 68 06/05/2024 2:49 PM EDT Temperature 36.3 ??C (97.3 ??F) 06/05/2024 2:49 PM ED T Respiratory Rate - - Oxygen Saturation - - Inhaled Oxygen Concentration - - Weight 118 kg (259 lb 8 oz) 06/05/2024 2:49 PM E DT Height 165.1 cm (5' 5 ) 06/05/2024 2:49 PM EDT Body Mass Index 43.18 06/05/2024 2:49 PM EDT Plan of Treatment Upcoming Encounters Date Type Department Care Team (Late st Contact Info) Description 12/04/2024 2:45 PM EDT Office Visit [facility] RHEUM[facility] [address] [address] DO [address] [facility] [address] [place] [address] Health Maintenance Due Date Last Done Comments BMI FOLLOWUP 1953 COLOGUARD 1953 COLON CANCER SCREENING 5 YEA R SIGMOIDOSCOPY 1953 COLONOSCOPY [address] CANCER SCREENING 1953 CT COLONOGRAPHY 1953 DXA SCAN 1953 FECAL OCCULT BLOOD TEST 1953 FIT Testing (1 year) 1953 LIPID PANEL 1953 Pneumococcal Vaccine 65+ (1 of 1 - PCV) 2018 INFLUENZA VACCINE 03/21/2024 08/23/2021, , 04/29/2019, Additional history exists COVID-19 Vaccine ( - 2023-2 5 season) 2024 ANNUAL WELLNESS VISIT 05/21/2024 HEPATITIS C SCREENING 05/21/2024 MAMMOGRAM 12/03/2025 12/04/2023, 11/19, 01/26/2022, Additional history exists TDAP/TD VACCINES (2 - Td or Tdap) 12/24/2028 019 ZOSTER VACCINE Completed 12/26/2018, 10/17/2018 Procedures Procedure Name Priority Date/Time Associated Diagnosis Comments XR CHEST PA AND LATERAL Routine 05/21/2024 2:54 PM EDT CBC AND DIFFERENTIAL Routine 05/21/2024 2:54 PM EDT URINE CULTURE Routine 05/21/2024 2:53 PM EDT from Last 3 Months Results * XR Chest PA & Lateral (05/21/2024 2:54 PM EDT) Anatomical Region Laterality Modality Body, Chest N/A Radiographic Manisha ging [facility] Provider IMG DIAGNOSTIC IMAGING OR DERABLES Final Result * CBC & Differential (05/21/2024 2:54 PM EDT) Blood [facility] Provider LAB BLOOD ORDERABLES Flor l Result * Urine Culture - Urine, (05/21/2024 2:53 PM EDT) Urine [facility] Provider MICROBIOLOGY - GENERAL OR DERABLES Final Result from Last 3 Months Insurance MEDICARE A & B [facility] [id number] Care Teams Agricultural Produce Commission Agent Relationship Specialty Start Date End Date Dillan Jain MD [address] [facility] [address] [facility] [address] [place] [address] PCP - General Family Medicine 05/28/24
--- OUTSIDE RECORDS SUMMARY | 2024-07-07 14:49 | XMS_ITS | Data Portability ---
Author Organization [facility] ELIESER Pickett LULU CLOSED Address [address] [place] [address] Care Team Providers Care Geographic Information Systems Engineer Name Role Phone ABDI GUTIÉRREZ Primary Care Provider ABDI GUTIÉRREZ Referring Provider Assessment Encounter Date Assessment Date Assessment LastModified by Organization Details LastModified Time 02/05/2024 02/05/2024 ASSESSMENT: Ms. Pierson is a 69-year-old female who presents to the office for evaluation of her low back pain that has been present for the last 5 years with no specific cause. She believes it could be related to the type of work she did when she lifted things regularly. She reports low back pain along and above her waistline that she describes as a deep ache and tightness that is worse if she is standing or walking. She can get some relief at times with sitting down. She does report some right hip pain where she feels it is bruised and some occasional sciatic issue but what is most problematic for her is the pain in her back at her waistline. She reports that she has to use a grocery cart if she is shopping or rollator walker but even then she still has pain in her back. 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 She did have an epidural with Dr. Reddy in 2019 she believes that was not helpful. She has previously taken tramadol though it was not helpful, she will occasionally use gabapentin at night to help with her pain. She will occasionally take Tylenol for pain. She denies any bowel or bladder control issues. IMAGING: No new imaging available for review. She did have an MRI report from 2019 indicating foraminal and central stenosis at multiple levels in her lumbar spine. She kept that report. Nurse practitioner visit PLAN: Standing lumbar AP, lateral, flexion, extension x-rays Lumbar MRI without contrast Follow-up with Dr. Hightower Ms. Pierson is going to move forward with updated imaging of her low back to include standing x-rays with flexion and extension to evaluate for any instability. We will also request a lumbar MRI to evaluate for any neural impingement or central stenosis. We briefly discussed that her symptoms do sound consistent with spinal stenosis. She will follow-up with Dr. Hightower to review these images to determine if she would be candidate for injections or surgical interventions. She verbalized understanding of these instructions and is agreeable to this plan. She has no further questions or concerns at this time. She is satisfied with this plan of care. [email or web address] Not available 02/05/2024 16:45:21 05/06/2024 05/06/2024 Assessment: Sanjana Pierson is a 69-year-old presenting to the clinic for evaluation of low back pain x 5 years. Patient presents with disc containing lumbar MRI completed on 02/20/2024 through [facility] along with complete lumbar xrays completed through [facility] on 02/05/2024. Patient notes low back pain [...] findings. Lumbar MRI completed on 02/20/2024 through [facility] and lumbar x-rays completed through [facility] on 02/05/2024. Cystogram stenosis is appreciated to [...] Abnormal Flag Note LastModifiedBy Organization Detail LastModifiedTime 02/05/20 24 02/05/2024 XR, lumbo sacra l spine , 4 or more view [address] [address] Jacobo johnson Name: JAREK johnson : 953 Jacobo johnson 53 Orderi ng Provid er: ASHLEIGH SHAW [place] EXAM DATE: 2023 EXAM: XR LUMBAR SPINE AP/LAT /FLEX/ EXT HISTOR Y: Low back pain COMPAR PATRICIA: None. FINDIN GS: There is dextro curvat ure of the upper lumbar spine and levocu rvatur e of the lower lumbar spine. There is transi tional anatom y of the L5 verteb ral body with sacral izatio n on the right. There is neonatal specialist ior listhe sis of L2 on L3 which measur es 5 mm with flexio n and extens ion. There is neonatal specialist ior listhe sis of L3 on L4 which measur es 4 mm with flexio n and extens ion. There is mild to modera te anteri or margin al spurri ng. No fractu re is identi fied. IMPRES GREG: 1. There are mild to modera te degene rative change s in the lumbar spine. Interp reted By: Audelia cheung MD Electr onical ly Signed By: Audelia cheung MD on 024 4:[address] Radiology [facility] [address] [place] [address], [id number], 02/08/2024 17:18:09 03/19/20 24 02/20/2024 MRI, lumba r spine , w/o contr ast No observ ation record ed. [email or web address] (Med Record) [address], [place], [address], 04/29/2024 13:40:28 05/07/20 24 02/20/2024 MRI, lumba r spine , w/o contr ast No observ ation record ed. BARCODE Not Available 2023 14:00:13 Result Notes None recorded. Procedures Surgical History None recorded. Imaging Results Imaging Date Name Status LastModified by Organiz ation Details LastModified Time 02/05/2024 XR, lumbosacral spine, 4 or more view completed [address] Radiology [facility] [address] [place], [address], 02/08/2024 17:18:09 02/20/2024 MRI, lumbar spine, w/o contrast completed [id number] (Med Record) [address], [place], [address], 04/29/2024 13:40:28 02/20/2024 MRI, lumbar spine, w/o contrast completed BAR[facility] Information not available 05/07/2024 14:00:13 Procedure Notes None recorded. Medical Equipment None Reported. Allergies Allergen ID Allergen Name Allergen Category Reaction Reaction Severity Criticality Documentation Date Start Date Code Code System Note Provider Name and Address Organization Details Recorded Time 018607 codeine medicatio n Not available Not available Not available 05/06/2024 2670 RxNorm Tamra Domonique [facility] 4 09:35:48 867830 naproxen medicatio n Not available Not available Not available 05/06/2024 7258 RxNorm Tamra Domonique [facility] 4 09:35:54 Medications Name Sig Start [...] Updated DateTime 05/06/2024 162.56 cm 43.8 kg/m2 585257.0 5 g 130 mm[Hg] 82 mm[Hg] Tamra Youssef [facility] 4 09:35:17 Social History None recorded. Functional Status None recorded. Mental Status None recorded. Family History Nothing Reported. Medical History No medical history recorded. Gynecological HistoryNo gynecological history recorded. Obstetrics History GPAL:G 0 P 0 0 0 0 Past Encounters Encounter ID Performer Location Encounter Start Date Encounter Closed Date Diagnosis/Indication Diagnosis SNOMED-CT Code Diagnosis ICD10 Code [id number] ASHLEIGH ROGERS APRN NEUROSURG ALICELynda PEDROZA [facility] [address] [facility] [address] [place] [address] 02/05/2024 12:53:38 02/06/2024 05:14:28 Lumbar spondylosis 124311024 M47.896 [id number] LISA ECHEVERRIA PA-C NEUROSURG ALICE [facility]I [facility] [address] [place] [address] 05/06/2024 09:29:54 05/07/2024 04:26:58 Low back pain 912706061 M54.50 Health Concerns Section Related Observation LastModified by Organization Detai ls LastModified Time None Recorded Concern Status LastModified by Organization Details LastModified Time None Recorded Advance Directives Directive None Recorded Payers Encounter Date Sequence Insurance Name Policy Number Policy Lofton Covered Member ID Lofton Member ID Guarantor Name 02/05/2024 1 [place] Sanjana Pierson [id number] Sanjana Pierson 02/05/2024 2 [employer] SUPPLEMENTAL - [employer]UR[employer] (MEDICARE SUPPLEMENT) Sanjana Pierson [id number] Sanjana Pierson 05/06/2024 1 [place] Sanjana Pierson [id number] Sanjana Pierson 05/06/2024 2 [employer] SU[employer]LE[employer] - [employer]UR[employer] (MEDICARE SUPPLEMENT) Sanjana Pierson [id number] Sanjana Pierson Notes Date Note Type Note Provider Name and Address Organization Details Recorded Time 02/05/2024 text/html Ms. Pierson is a 69-year-old female who presents to the office for evaluation of her low back pain that has been present for 5 years with no specific cause. ASHLEIGH ROGERS, [employer] [address] [place], [address], [facility] 02/05/2024 16:45:45 05/06/2024 text/html Sanjana Pierson is a 69-year-old presenting to the clinic for evaluation of low back pain x 5 years. Patient presents with disc containing lumbar MRI completed on 02/20/2024 through [facility] along with complete lumbar xrays completed through [facility] on 02/05/2024. Patient notes low back pain [...] I in clinic today. LISA ECHEVERRIA PA-C [facility] [place], [address], [facility] 05/06/2024 10:41:23 OBGyn Episode No OBEpisode recorded.
--- OUTSIDE RECORDS SUMMARY | 2024-07-07 14:49 | XMS_ITS | Encounter Summary ---
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 Name Role Phone Dillan Jain MD Primary Care Provider [phone] Reason for Visit * Reason Comments Lupus Follow up Osteoarthritis Follow up Encounter Details Date Type Department Care Team (Latest Contact Info) Description 06/05/2024 2:45 PM EDT Office Visit [facility] MEDICAL [facility] [address] [facility] [address] [place] [phone] DO [address] [facility] [address] [place] [address] Systemic lupus erythematosus, unspecified SLE type, unspecified organ involvement status (Primary Dx); High risk medication use; Primary osteoarthritis involving multiple joints Social History Tobacco Use Types Packs/Day Years [...] AM EDT documented as of this encounter Last Filed [...] Mass Index 43.18 06/05/2024 2:49 PM EDT documented in this encounter Patient Instructions * Attachments The following attachments cannot be sent through Care Everywhere. * Systemic Lupus Erythematosus Adult (Algerian) documented in this encounter Progress Notes * Derrick Way, - 06/05/2024 2:45 PM EDTAssociated Problem(s): SLE (systemic lupus erythematosus) * 2008: VALENTINA 1:80 speckled * 10/25/22: VALENTINA positive, DS DNA 26 (0-4), Longo negative, SSA and SSB Normal, PURCHASING CONTRACTING CLERK normal, chromatin normal, Erin 1 normal, Centromere normal, SCL 70 normal, Ribosomal P Normal, ESR 46 (0-30) * Medications/treatments/interventions tried include: Tylenol, Advil, meloxicam, she saw Jayson Pack MD (Dining Room Supervisor) in 2008, She has seen an orthopaedic surgeon, she has done physical therapy,she had hip replacement surgery, she had arthroscopic knee surgery, Percocet (Allergic/intolerant),Aleve (allergic/Intolerant), allopurinol, gabapentin, shoulder injection, she saw a pain managementspecialist, she had back injections, Plaquenil, Tramadol, knee injection 1. Check labs 2. Continue/refill Plaquenil 3. We gave her a handout on Lupus to take home and review 4. Follow up in 6 months 5. She seems well today * Derrick Way DO - 06/05/2024 2:45 PM EDTAssociated Problem(s): Osteoarthritis 1. Weight loss would be helpful 2. [...] Tramadol 14. She has had knee injection * Derrick Way DO - 06/05/2024 2:45 PM EDTAssociated Problem(s): High risk medication use * Plaquenil 200 mg PO BID for SLE * Started 11/08/22 Patient's taking hydroxychloroquine should have an eye exam at least once/year to monitor for signsof medication toxicity * Derrick Way DO - 06/05/2024 2:45 PM EDT Images from the original note were not included. Office Follow Up Date: 06/05/2024 Patient Name: Sanjana Pierson Date of : 1955 Referring Physician: Dillan Jain MD Chief Complaint Patient presents with Lupus Follow up Osteoarthritis Follow up History of Present Illness: Sanjana Pierson is a 69 y.o. female who is here today for follow up. She established care with us as of 11/08/22. We have prescribed her Plaquenil. No recent serious injuries or infections. No fever. Today she rates her pain as 4.5/10 in severity. She has 2 hours/day of morning stiffness. No red orhot joints. Her joint swell. No muscle pain or weakness. She has back pain. She recently had an MRI. She is taking Tramadol PRN. She has had a steroid shot in her left knee. Her skin is itching. She has had rash. No hair loss. No headaches or paresthesias. No lymphadenopathy. No abnormal bruising/bleeding. No GI or issues. No chest pain. No shortness of breath. No sicca symptoms. Subjective Review of Systems Constitutional: Negative. HENT: Negative. Eyes: Positive for visual disturbance. Respiratory: Positive for apnea. Cardiovascular: Positive for leg swelling. Gastrointestinal: Negative. Endocrine: Negative. Genitourinary: Negative. Musculoskeletal: Positive for arthralgias, back pain and joint swelling. Skin: Negative. Allergic/Immunologic: Negative. Neurological: Positive for tremors. Hematological: Negative. Psychiatric/Behavioral: Negative. All other systems reviewed and are negative. Current Outpatient Medications: allopurinol (ZYLOPRIM) 100 MG tablet, Take 1 tablet by mouth Daily., Disp: , Rfl: Aspirin ([place]) 81 MG capsule, Take 1 capsule by mouth Daily., Disp: , Rfl: atorvastatin (LIPITOR) 40 MG tablet, Take 1 tablet by mouth Daily., Disp: , Rfl: calcium carbonate (OS-GUY) 600 MG tablet, Take 1 tablet by mouth Daily., Disp: , Rfl: esomeprazole (nexIUM) 20 MG capsule, Take 1 capsule by mouth Every Morning Before Breakfast. 1 hourbefore a meal swallowing whole. Do not crush or chew granules, Disp: , Rfl: gabapentin (NEURONTIN) 300 MG capsule, TAKE 1 CAPSULE BY MOUTH TWICE DAILY, Disp: , Rfl: hydroxychloroquine (PLAQUENIL) 200 MG tablet, Take 1 tablet by mouth 2 (Two) Times a Day., Disp: 60tablet, Rfl: 5 losartan (COZAAR) 50 MG tablet, take 1 tablet by mouth once daily, Disp: , Rfl: metoprolol succinate XL (TOPROL-XL) 50 MG 24 hr tablet, TAKE 1 TABLET BY MOUTH ONCE DAILY, Disp: , Rfl: montelukast (SINGULAIR) 10 MG tablet, Take 1 tablet by mouth Every Night., Disp: , Rfl: potassium chloride 10 MEQ CR tablet, Take 1 tablet by mouth Daily., Disp: , Rfl: primidone (MYSOLINE) 50 MG tablet, Take 2 tablets by mouth Daily., Disp: , Rfl: spironolactone (ALDACTONE) 25 MG tablet, Take 1 tablet by mouth Daily., Disp: , Rfl: traMADol (ULTRAM) 50 MG tablet, TAKE 1 TABLET BY MOUTH THREE TIMES DAILY NEEDED, Disp: , Rfl: triamterene-hydrochlorothiazide (MAXZIDE-25) 37.5-25 MG per tablet, TAKE 1 TABLET BY MOUTH ONCE DAILY FOR 90 DAYS, Disp: , Rfl: Allergies Allergen Reactions Acetaminophen Provider Review Needed Codeine Provider Review Needed Naproxen Sodium Provider Review Needed Oxycodone Hcl Provider Review Needed I have reviewed and updated the patient's chief complaint, history of present illness, review of systems, past medical history, surgical history, family history, social history, medications and allergy list as appropriate. Objective Vitals: 06/05/24 1449 BP: 126/74 BP Location: Left arm Patient Position: Sitting Cuff Size: Large Adult Pulse: 68 Temp: 97.3 ??F (36.3 ??C) Weight: 118 kg (259 lb 8 oz) Height: 165.1 cm (65 ) PainSc: 5 Body mass index is 43.18 kg/m??. Physical Exam General: Well appearing 69 year old female. Not in distress. She is ambulating with a Rolator SKIN: No rashes. No alopecia. No subcutaneous nodules. No digital pits or ulcers. No sclerodactyly. HEENT: NCAT. Conjunctiva clear, no photophobia. No oral or nasal ulcers. Hearing intact. Pulmonary: Clear to auscultation bilaterally. No wheezing, rales, or rhonchi. CV: Regular rate and rhythm. No murmurs, rubs, or gallops. Psych: Normal mood and affect. Alert and oriented x 3. Extremities: No cyanosis or edema. Musculoskeletal: No joint swelling or tenderness to palpation. No warmth or erythema. Normal range of motion of the wrists, ankles, elbows, and knees. Lymph: No palpable cervical adenopathy Neuro: + Resting tremor Procedures Assessment / Plan Assessment & Plan Systemic lupus erythematosus, unspecified SLE type, unspecified organ involvement status * 2009: VALENTINA 1:80 speckled * 10/25/22: VALENTINA positive, DS DNA 26 (0-4), Longo negative, SSA and SSB Normal, PURCHASING CONTRACTING CLERK normal, chromatin normal, Erin 1 normal, Centromere normal, SCL 70 normal, Ribosomal P Normal, ESR 46 (0-30) * Medications/treatments/interventions tried include: Tylenol, Advil, meloxicam, she saw Jayson Pack MD (Dining Room Supervisor) in 2008, She has seen an orthopaedic surgeon, she has done physical therapy,she had hip replacement surgery, she had arthroscopic knee surgery, Percocet (Allergic/intolerant),Aleve (allergic/Intolerant), allopurinol, gabapentin, shoulder injection, she saw a pain managementspecialist, she had back injections, Plaquenil, Tramadol, knee injection 1. Check labs 2. Continue/refill Plaquenil 3. We gave her a handout on Lupus to take home and review 4. Follow up in 6 months 5. She seems well today High risk medication use * Plaquenil 200 mg PO BID for SLE * Started 11/08/22 Patient's taking hydroxychloroquine should have an eye exam at least once/year to monitor for signsof medication toxicity Primary osteoarthritis involving multiple joints 1. Weight loss would be helpful 2. [...] Tramadol 14. She has had knee injection Orders Placed This Encounter Procedures CBC Auto Differential Comprehensive Metabolic Panel C-reactive Protein Sedimentation Rate C4+C3 Anti-DNA Antibody, Double-stranded New Medications Ordered This Visit Medications hydroxychloroquine (PLAQUENIL) 200 MG tablet Sig: Take 1 tablet by mouth 2 (Two) Times a Day. Dispense: 60 tablet Refill: 5 Follow Up: Return in about 6 months (around 12/04/2024). Derrick Way DO [facility] [place] documented in this encounter Plan of Treatment Upcoming Encounters Date Type Department Care Team (Late st Contact Info) Description 12/04/2024 2:45 PM EDT Office Visit [facility] RHEUMATOLOGY [address] [facility] [address] [place] [id number] [address] DO [address] [facility] [address] [place] [address] Scheduled Orders Name Type Priority Associated Diagnoses Orde r Schedule CBC Auto Differential Lab Routine Systemic lupus erythematosus, unspecified SLE type, unspecified organ involvement status High risk medication use Primary osteoarthritis involving multiple joints Expected: 12/04/2024 (Approximate), Expires: 06/05/2025 Comprehensive Metabolic Panel Lab Routine Systemic lupus erythematosus, unspecified SLE type, unspecified organ involvement status High risk medication use Primary osteoarthritis involving multiple joints Expected: 12/04/2024 (Approximate), Expires: 06/05/2025 C-reactive Protein Lab Routine Systemic lupus erythematosus, unspecified SLE type, unspecified organ involvement status High risk medication use Primary osteoarthritis involving multiple joints Expected: 12/04/2024 (Approximate), Expires: 06/05/2025 Sedimentation Rate Lab Routine Systemic lupus erythematosus, unspecified SLE type, unspecified organ involvement status High risk medication use Primary osteoarthritis involving multiple joints Expected: 12/04/2024 (Approximate), Expires: 06/05/2025 C4+C3 Lab Routine Systemic lupus erythematosus, unspecified SLE type, unspecified organ involvement status High risk medication use Primary osteoarthritis involving multiple joints Expected: 12/04/2024 (Approximate), Expires: 06/05/2025 Anti-DNA Antibody, Double-stranded Lab Routine Systemic lupus erythematosus, unspecified SLE type, unspecified organ involvement status High risk medication use Primary osteoarthritis involving multiple joints Expected: 12/04/2024 (Approximate), Expires: 06/05/2025 documented as of this encounter Visit Diagnoses Diagnosis Systemic lupus erythematosus, unspecified SLE type, unspecified organ involvement status- Primary High risk medication use Primary osteoarthritis involving multiple joints documented in this encounter Care Teams Livestock Slaughterer Relationship Specialty Start Date End Date Dillan Jain MD [address] [facility] [address] [facility] [address] [place] [address] PCP - General Family Medicine 05/28/24 documented as of this encounter
== END 2024-07-05 15:29 | disposition home or self-care (01) ==
LOC: SC.PAINP 14:30
PROVIDERS: PCP Family Medicine; Visit Provider Anesthesiology
DX: M51.16 Intervertebral disc disorders with radiculopathy, lumbar region (principal); M48.062 Spinal stenosis, lumbar region with neurogenic claudication
CPT/HCPCS: 62323; J1010; Q9966

== ENCOUNTER 2024-08-01 10:46 | Outpatient (CLI) | payer MEDICARE, OTHER, SELFPAY ==
--- NOTE | 2024-08-01 | CA_ITS ---
FINAL REPORT TECHNIQUE: Color Doppler, duplex Doppler and compression sonography of the right lower extremity venous system was performed. CLINICAL HISTORY: RLE pain and edema for years, ASA 81mg COMPARISON: None FINDINGS: There is no evidence of deep venous thrombosis in the right lower extremity from the level of the groin to the calf. The veins are patent and compressible. IMPRESSION: No evidence of deep venous thrombosis right lower extremity. Reviewed, Interpreted and Dictated by Estrada Mccormick III, MD Transcribed by Alexa Casillas Authenticated and [facility]
--- OUTSIDE RECORDS SUMMARY | 2024-08-06 10:17 | XMS_ITS | Encounter Summary ---
Author Organization [place] [address] Care Team Providers Care Diamond Mounter Name Role Phone Nakul Jain MD Primary Care Provider [phone] Reason for Referral * Mammography (Routine) - Closed Specialty Diagnoses / Procedures Referred By Primo johnson Referred To Contact Radiology Diagnoses Encounter for screening mammogram for malignant neoplasm of breast Procedures MM MAMMO DIGITAL SCREENING W CAD BILAT CHG SCREENING MAMMOGRAPHY BI 2-VIEW BREAST INC CAD KS SCR MAMMO BI INCL CAD Dillan Jain MD [address] [place] [address] [address] [place] [address] Phone: tel: fax: Referral ID Status Reason Start Date Expiration Date Visits Re quested Visits Authorized [id number] Closed 10/20/2017 10/21/2019 1 1 Reason for Visit * Mammography (Routine) - Closed Specialty Diagnoses / Procedures Referred By Primo johnson Referred To Contact Radiology Diagnoses Encounter for screening mammogram for malignant neoplasm of breast Procedures MM MAMMO DIGITAL SCREENING W CAD BILAT CHG SCREENING MAMMOGRAPHY BI 2-VIEW BREAST INC CAD [place] SCR MAMMO BI INCL CAD Dillan Jain MD [address] [place] [address] [address] [place] [address] Phone: tel: fax: Referral ID Status Reason Start Date Expiration Date Visits Re quested Visits Authorized [id number] Closed 10/20/2017 10/21/2019 1 1 Encounter Details Date Type Department Care Team (Latest Contact Info) Description 11/03/2017 1:30 PM EDT - 11/03/2017 11:59 PM EDT Hospital Encounter [facility] Mammography [address] [place] [id number] Dillan Jain MD [facility]ly [facility], [facility] [facility] [address] [place] [address] [...] Impressions 11/07/2017 1:30 PM EDT : Negative ??(VUR-Ppcbdvmg-3) ~ RECOMMENDATION: Routine screening mammogram in 1 [...] MAMMO DIG SCREEN CAD BILAT performed at [facility]. There are scattered fibroglandular densities. ??No significant change. Compared with prior studies the most recent being ??11-04-16 ~ us Dillan Jain MD IMG MAMMOGRAPHY ORDERABLE S Final Result documented in this encounter Visit Diagnoses Diagnosis Encounter for screening mammogram for malignant neoplasm of breast Other screening mammogram documented in this encounter Care Teams Diamond Mounter Relationship Specialty Start Date End Date Nakul Jain MD [address] [facility] [address] [place] [address] PCP - General Psychiatry & Neurology-Neurology 04/09/12 11/29/18 documented as of this encounter
--- OUTSIDE RECORDS SUMMARY | 2024-08-06 10:17 | XMS_ITS | Referral Summary ---
Author Organization [facility] Address [facility] [place] [facility] [place] [address] Phone Care Team Providers Care Incident Response Lead Name Role Phone Dillan Jain MD Primary Care Provider [phone] Allergies No known active allergies Medications No [...] EDT Impressions 12/04/2023 3:40 PM EDT Negative ??(PRZ-Xseniomc-9) ~ RECOMMENDATION: Routine screening mammogram in 1 [...] the next mammogram, in accordance with the [place] [employer] and the Society of Breast Imaging recommendations. Narrative 12/04/2023 3:40 PM EDT Procedure:MM MAMMO DIGITAL LIGIA SCREEN BILAT ~ Reason for exam: screening, asymptomatic. Z12.31-Encounter for screening mammogram for malignant neoplasm of aaihkf-PEF-38-CM ~ MM MAMMO DIGITAL LIGIA SCREEN BILAT [...] for screening mammogram for malignant neoplasm of dxiuzx-FNI-33-CM ~ MM MAMMO DIGITAL LIGIA SCREEN BILAT Bilateral CC and MLO view(s) were taken. There are scattered fibroglandular densities. Prior study comparison: Compared with prior studies the most recentbeing 01/26/22, 01/22/21 No mammographic evidence of malignancy. ~ IMPRESSION: Negative (ERK-Rancjoyg-4) ~ RECOMMENDATION: Routine screening mammogram in 1 [...] the next mammogram, in accordance with the [place] [employer] and the Society of Breast Imaging recommendations. Dillan Jain MD IMG MAMMOGRAPHY ORDERABLE S Final Result from Last 3 Months or Most Recently Relevant to Health Maintenance Insurance MEDICARE [place] PART A AND B [facility] [id number] Care Teams Incident Response Lead Relationship Specialty Start Date End Date Dillan Jain MD [address] [facility] [address] [place] [address] PCP - General Family Medicine 11/30/18
--- OUTSIDE RECORDS SUMMARY | 2024-08-06 10:17 | XMS_ITS | Encounter Summary ---
Author Organization [facility] [place] [address] Care Team Providers Care Channel Man Name Role Phone Dillan Jain MD Primary Care Provider [phone] Encounter Details Date Type Department Care Team [...] on filedocumented in this encounter Care Teams Channel Man Relationship Specialty Start Date End Date Dillan Jain MD [address] [facility] [address] [facility] [address] PCP - General Family Medicine 11/30/18 documented as of this encounter
--- OUTSIDE RECORDS SUMMARY | 2024-08-06 10:17 | XMS_ITS | Patient Health Record ---
Author Organization [facility] Address [address] [facility] [address] [place] [id number] Care Team Providers Care Marketing Automation Analyst Name Role Phone Yannick Jain Primary Care Provider Lydia Moseley Unavailable [phone] ALLERGIES Allergen (clinical drug ingredient) Drug/Non Drug Allergy documented on EMR Reaction Allergy Type Onset Date Status naproxen Aleve Unknown Drug Allergy Active acetaminophen / oxycodone Percocet Unknown Drug Allergy Active codeine Codeine sick to stomach Drug Allergy A ctive RESULTS Component Value Reference Range Notes Influenza Screen (in house) Reviewed date:07/29/2024 07:44:10 PM Interpretation:neg Performing Lab: Notes/Report: neg results neg Rapid Strep- Inhouse Reviewed date:07/29/2024 07:44:38 PM Interpretation:neg Performing Lab: Notes/Report: neg strep test neg Covid test (in house) Reviewed date:07/29/2024 07:43:56 PM Interpretation:neg Performing Lab: Notes/Report: neg Result: neg venous doppler ultrasound ri ght leg Reviewed date:08/05/2024 01:17:08 PM Interpretation: Performing Lab: Notes/Report: P-Comprehensive Metabolic Pa alysha (CMP) Reviewed date:03/27/2024 09:46:32 AM Interpretation:alk phos 146 Performing Lab: Notes/Report: Test performed by [email or web address] [facility] , [address], [place] [address] Jung Jc MD, Assembler [employer]ipes CLIA: [id number] Sodium 135 135-145 mmol/L Potassium 4.7 3.5-5.3 [...] <0.2-1.2 mg/dL A/G Ratio 1.1 1.1-2.5 mg/dL P-Basic Metabolic Panel (BMP ) (Not yet reviewed by provider) Interpretation: Performing Lab: Notes/Report: Test performed by [employer] [address] , [address] , [place] [address] Jung Jc MD, Assembler [employer]cob Pipes CLIA: [id number] Sodium 137 135-145 mmol/L Potassium 4.2 3.5-5.3 mmol/L Chloride 101 97-108 mmol/L CO2 25 22-32 mmol/L Glucose 100 65-99 mg/dL BUN 18 8-23 mg/dL Creatinine 0.84 0.50-1.00 mg/dL Calcium 9.6 8.6-10.4 mg/dL eGFR by Creatinine 74 >59 mL/min/1.73m2 Bone density Reviewed date:01/17/2024 12:50:14 PM Interpretation:Normal Performing Lab: Notes/Report: Normal Bone density DNADSAB Reviewed date:06/10/2024 09:57:59 AM Interpretation: Performing Lab: Notes/Report: DNADSAB 14 0-9 IU/mL Negative <5 Equivocal 5 - 9 Positive >9 Performed at: [address] [id number] Area Supervisor: Esa Antunez PhD, Phone: [phone] Reviewed date:06/10/2024 09:57:59 AM Interpretation: Performing Lab: Notes/Report: C4 26 12-38 mg/dL C3 Reviewed date:06/10/2024 09:57:59 AM Interpretation: Performing Lab: Notes/Report: C3 174 82-167 mg/dL Performed at: [address] [id number] Area Supervisor: Esa Antunez PhD, Phone: [phone] H-Sed Rate Reviewed date:06/07/2024 11:32:10 AM Interpretation: [...] 40 Performing Lab: Notes/Report: Test performed by [employer] [address] [place] [address] , [facility], [place] [id number] Jung Jc MD, Assembler [employer]ob Pipes CLIA: [id number] Erythrocyte Sedimentation Ra te (ESR), Automated 40 <31 mm/hr P-Comprehensive Metabolic Pa alysha (CMP) Reviewed date:10/10/2023 08:25:15 AM Interpretation:Alk Phos 134 Performing Lab: Notes/Report: Test performed by [employer] [address] [place] [address] , [address], [place] [address] Jung Jc MD, Assembler [employer]ob Pipes CLIA: [id number] Sodium 137 135-145 mEq/L Potassium 4.6 3.5-5.3 [...] e a day for 90 days Active traMADol HCl 50 MG 1 tablet as needed Orally three times a day as needed 07/10/2023 Active Montelukast Sodium 10 MG 1 tab(s) orally once a day 05/27/2017 Active Atorvastatin Calcium 40 MG 1 tab(s) oral ly once a day Active Metoprolol Succinate ER 50 MG 1 tab(s) o rally once a day Active Allopurinol 100 MG 1 tab(s) orally once a day for 90 days Active Hydroxychloroquine Sulfate 2 00 MG 1 tab twice daily Active Potassium Chloride ER 10 MEQ Take 1 tabl et by mouth once daily for 90 days Active Gabapentin 300 MG 1 cap(s) orally 2 times a day 07/12/2024 Active NexIUM 24HR 20 MG 1 cap(s) orally once a day (in the morning) Active Spironolactone 25 MG 1 tab(s) orally bid Active Aspirin Adult Low Dose 81 MG 1 tab(s) or ally once a day Active Triamterene-HCTZ 37.5-25 MG 1 tab(s) ora lly once a day Active Losartan Potassium 50 MG 1 tablet Orally Once a day for 30 day(s) Active Albuterol Sulfate HFA 108 (9 0 Base) MCG/ACT 1 puff as needed Inhalation every 4 hrs prn 07/29/2024 Active IMMUNIZATIONS Vaccine Route Administration Date Status Comme nts Fluzone High Dose (65yr and older) IM Intramuscular 06/11/2018 Administered Fluzone High Dose (65yr and older) IM Intramuscular 04/29/2019 Administered Fluzone High Dose (65yr and older) IM Intramuscular 05/25/2020 Administered Fluzone High Dose (65yr and older) IM Intramuscular 08/23/2021 Administered Pt tolerated w ell PNEUMOVAX 23 VACCINE IM Intramuscular 10/13/2016 Administered Prevnar (PCV13) IM Intramuscular 10/15/2018 Administered Shingrix Unknown 10/17/2018 Administered Shingrix Unknown 12/26/2018 Administered Tetanus Tdap-Adacel (over 7yrs) IM Intramuscular 12/24/2018 Administered SOCIAL HISTORY Sex Assigned At : Social History Observation Description Sex Assigned At Unknown PROBLEMS Problem Type ICD Code Onset Dates Problem Status W/U Status Risk SNOMED Code Notes Problem Essential hypertensi on (I10) Active confirmed 41020867 Problem Dyspepsia (K30) Active confirmed 288227 009 Problem Degenerative disc disease, lumbar (M51.36) Active confirmed 41185785 Problem Heart palpitations (R00.2) Active confirmed 96123057 Problem Falls frequently (R29.6) Active confirmed 630655671 Problem Other chronic pain (G89.29) Active confirmed 18425710 Problem Unspecified osteoarthritis, unspecified site (M19.90) Active confirmed Osteoarthritis (685896123) Problem Lumbago with sciatic a, left side (M54.42) Active confirmed 848051463 Problem Onychomycosis (B35.1) Active confirmed 209507694 Problem Pain in left shoulde r (M25.512) Active confirmed 14509756742727012 Problem Other chronic pain (G89.29) Active confirmed 24113559 Problem Pain in left knee (M25.562) Active confirmed 7646141067 Problem Chronic GERD (K21.9) Active confirmed 2 29654206 Problem JSOE (obstructive sle ep apnea) (G47.33) Active confirmed 88002716 Problem Ectopic atrial beats (I49.1) Active confirmed 186467964 Problem Trigger finger of right thumb (M65.311) Active confirmed 55177204697114 5 Problem VALENTINA positive (R76.8) Active confirmed 1 04810305 Problem Sleep disturbance, unspecified (G47.9) Active confirmed 99959714 Problem Pure hypercholesterolemia (E78.00) Active confirmed 976238219 Problem Dupuytren's contracture (M72.0) Active confirmed 642900649 Problem Fibrocystic breast disease (FCBD), unspecified laterality (N60.19) Active confirmed 86827857 Problem Lumbar facet joint pain (M54.5) Active confirmed 594743393 Problem Chondrocalcinosis (M11.20) Active confirmed 137582461 Problem Injury of left rotat or cuff, subsequent encounter (S46.002D) Active confirmed 443592042951998 01 Problem Other forms of systemic lupus erythematosus, unspecified organ involvement status (M32.8) Active confirmed 41360939 VITAL SIGNS Heart Rate 73 /min 08/05/2024 Blood pressure diastolic 70 mm Hg 08/05/2024 Height 65.25 in 08/05/2024 Blood pressure systolic 120 mm Hg 08/05/2024 Weight 258.8 lbs 08/05/2024 BMI 42.73 kg/m2 08/05/2024 Encounters Encounter Location Date Provider Diagnosis [facility] [address] [facility] [address] [place], [place] [id number] 10/09/2023 Yannick Jain Pain in left knee M2 5.562 ; Chondrocalcinosis M11.20 and VALENTINA positive R76.8 [facility] [address] [facility] [address] [place], [place] [id number] 10/10/2023 Yannick Jain [facility] [address] [facility] [address] [place], [place] [id number] 11/27/2023 Yannick Jani Postmenopausal Z78.0 [facility] [address] [facility] [address] [place], [place] [id number] 12/22/2023 Yannick Jain Lumbago with sciatic a, left side M54.42 and Other chronic pain G89.29 [facility] [address] [facility] [address] [place], [place] [id number] 01/22/2024 Yannick Jain Essential hypertensi on I10 ; Heart palpitations R00.2 ; Pain in left knee M25.562 ; Falls frequently R29.6 ; Other chronic pain G89.29 ; Low back pain, unspecified M54.50 and Spinal stenosis of lumbosacral region M48.07 [facility] [address] [place], [place] [id number] 02/19/2024 Yannick Jain Other chronic pain G 89.29 [facility] [address] [place], [place] [id number] 02/19/2024 Yannick Jain Degenerative disc disease, lumbar M51.36 ; Lumbar facet joint pain M54.5 ; Other chronic pain G89.29 and Onychomycosis B35.1 [facility] [address] [facility] [address] [place], [place] [id number] 03/21/2024 Yannick Jain Onychomycosis of toe nail B35.1 [facility] [address] [place], [place] [id number] 03/27/2024 [facility] [address] [place] [id number] 05/20/2024 Yannick Jain Essential hypertensi on I10 ; Onychomycosis B35.1 ; Heart palpitations R00.2 and Lumbago with sciatica, left side M54.42 [facility] [address] [place], [place] [id number] 07/11/2024 Yannick Jain Other chronic pain G 89.29 [facility] [address] [place], [place] [id number] 07/29/2024 Lydia Moseley URI (upper respirato ry infection) J06.9 and Leg edema R60.0 [facility] [address] [facility] [address] [place], [place] [id number] 08/05/2024 Lydia Moseley Essential hypertensi on I10 and Leg edema R60.0 ASSESSMENTS Encounter Date Diagnosis Assessment Notes Treatment Notes Treatment Clinical Notes 02/19/2024 Other chronic pain (ICD-10 - G89.29) 02/19/2024 Degenerative disc disease, lumbar (ICD-10 - M51.36) 02/19/2024 Lumbar facet joint p ain (ICD-10 - M54.5) 03/21/2024 Onychomycosis of toenail (ICD-10 - B35.1) 05/20/2024 Essential hypertensi on (ICD-10 - I10) 05/20/2024 Onychomycosis (ICD-1 0 - B35.1) 07/11/2024 Other chronic pain (ICD-10 - G89.29) 07/29/2024 URI (upper respirato ry infection) (ICD-10 - J06.9) fluids, rest, supportive measures for fever/symptom relief 07/29/2024 Leg edema (ICD-10 - R60.0) needs US of right leg; low salt diet 08/05/2024 Essential hypertensi on (ICD-10 - I10) 08/05/2024 Leg edema (ICD-10 - R60.0) will check BMP today; reviewed US records with her 10/09/2023 Chondrocalcinosis (ICD-10 - M11.20) 11/27/2023 Postmenopausal (ICD- 10 - Z78.0) 12/22/2023 Lumbago with sciatic a, left side (ICD-10 - M54.42) 12/22/2023 Other chronic pain (ICD-10 - G89.29) 01/22/2024 Essential hypertensi on (ICD-10 - I10) 01/22/2024 Heart palpitations (ICD-10 - R00.2) 10/09/2023 Pain in left knee (ICD-10 - M25.562) 10/09/2023 VALENTINA positive (ICD-10 - R76.8) 01/22/2024 Pain in left knee (ICD-10 - M25.562) 05/20/2024 Heart palpitations (ICD-10 - R00.2) 02/19/2024 Other chronic pain (ICD-10 - G89.29) 02/19/2024 Onychomycosis (ICD-1 0 - B35.1) 05/20/2024 Lumbago with sciatic a, left side (ICD-10 - M54.42) 01/22/2024 Falls frequently (ICD-10 - R29.6) 01/22/2024 Other chronic pain (ICD-10 - G89.29) Encourage BID Gabapentin 01/22/2024 Low back pain, unspecified (ICD-10 - M54.50) 01/22/2024 Spinal stenosis of lumbosacral region (ICD-10 - M48.07) PLAN OF TREATMENT Pending Test Test Name Order Date P-Basic Metabolic Panel (BMP) 08/05/2024 Next Appt Details Provider Name:Yannick Luna er, 08/19/2024 01:15:00 PM, [address], [place], [place], [id number], Insurance Providers Payer Name Payer Address Payer Phone Subscriber Number Group Number Insured Name Patient Relationship to Insured Coverage Start Date Coverage End Date MEDICARE PART [place] [address] [address] [place] [address] [phone] [id number] RADHA MARTINEZ Self - patient is the insured [employer] MEDICARE SUPPLEMENT [address] [address] [place], [place] [id number] MARTINEZ RADHA Self - patient is the insured MEDICATIONS [...] 01/12/15 COVID screening: negative 01/15/2020 Colonoscopy at [facility] Dr. Gallegos, tubular gabrielle noma 01/16/[address] Reddy Hospitalization History Reason Date(Month/Year) [facility] ER- pain in right hip 12/14/08
--- OUTSIDE RECORDS SUMMARY | 2024-08-06 10:17 | XMS_ITS | Encounter Summary ---
Author Organization [facility] [place] [address] Care Team Providers Care Gas Reverser Name Role Phone Dillan Jain MD Primary Care Provider [phone] Encounter Details Date Type Department Care Team [...] on filedocumented in this encounter Care Teams Gas Reverser Relationship Specialty Start Date End Date Dillan Jain MD [address] [facility] [address] [facility] [address] PCP - General Family Medicine 11/30/18 documented as of this encounter
--- OUTSIDE RECORDS SUMMARY | 2024-08-06 10:17 | XMS_ITS | Encounter Summary ---
Author Organization [place] [address] Care Team Providers Care Gearman Name Role Phone Nakul Jain MD Primary Care Provider [phone] Reason for Referral * Vascular Imaging (Emergency) - Closed Specialty Diagnoses / Procedures Referred By Contac t Referred To Contact Radiology Diagnoses Left leg swelling Procedures [facility] LOWER EXTREMITY VENOUS LEFT Nakul Lewis MD [address] [place] [address] Phone: tel: fax: Referral ID Status Reason Start Date Expiration Date Visits Re quested Visits Authorized [id number] Closed 10/15/2014 10/15/2015 1 1 Reason for Visit * Vascular Imaging (Emergency) - Closed Specialty Diagnoses / Procedures Referred By Contac t Referred To Contact Radiology Diagnoses Left leg swelling Procedures [facility] LOWER EXTREMITY VENOUS LEFT Nakul Lewis MD [address] [place] [address] Phone: tel: fax: Referral ID Status Reason Start Date Expiration Date Visits Re quested Visits Authorized [id number] Closed 10/15/2014 10/15/2015 1 1 Encounter Details Date Type Department Care Team (Latest Contact Info) Description 10/16/2014 11:58 AM EST - 10/16/2014 11:59 PM EST Hospital Encounter [facility] [address] [place] [address] Nakul Lewis MD [address] [facility] [place] [address] Left leg swelling Discharge Disposition: Home or [...] Procedure Name Priority Date/Time Associated Diagnosis Comments [facility] LOWER EXTREMITY VENOUS LEFT STAT 10/16/2014 12:00 PM EST Left leg swelling documented in this encounter Results * [facility] LOWER EXTREMITY VENOUS LEFT (10/16/2014 12:00 PM [...] swelling documented in this encounter Care Teams Gearman Relationship Specialty Start Date End Date Nakul Jain MD [address] [facility] [address] [place] [address] PCP - General Psychiatry & Neurology-Neurology 04/09/12 11/29/18 documented as of this encounter
--- OUTSIDE RECORDS SUMMARY | 2024-08-06 10:17 | XMS_ITS | Encounter Summary ---
Author Organization [place] [address] Care Team Providers Care Baggage Agent Supervisor Name Role Phone Nakul Jain MD Primary Care Provider [phone] Reason for Visit * Mammography (Routine) - Closed Specialty Diagnoses / Procedures Referred By Contac t Referred To Contact Radiology Diagnoses Breast density Procedures MM MAMMO DIGITAL DIAGNOSTIC W CAD RIGHT Dillan Jain MD [address] [place] [address] [address] [place] [address] Phone: tel: fax: Referral ID Status Reason Start Date Expiration Date Visits Re quested Visits Authorized [id number] Closed 11/02/2015 11/01/2016 1 1 Encounter Details Date Type Department Care Team (Latest Contact Info) Description 11/18/2015 1:48 PM EDT - 11/18/2015 11:59 PM EDT Hospital Encounter [address] [place] [address] Dillan Jain MD [address] [place] [address] [address] [place] [address] Breast density Discharge Disposition: Home [...] Impressions 11/19/2015 9:19 AM EDT : Negative ??(YNN-Iqshtbcn-6) ~ RECOMMENDATION: Routine screening mammogram in 1 [...] breast documented in this encounter Care Teams Baggage Agent Supervisor Relationship Specialty Start Date End Date Nakul Jain MD [address] [facility] [address] [place] [address] PCP - General Psychiatry & Neurology-Neurology 04/09/12 11/29/18 documented as of this encounter
--- OUTSIDE RECORDS SUMMARY | 2024-08-06 10:17 | XMS_ITS | Encounter Summary ---
Author Organization [place] [address] Care Team Providers Care Separator Operator Name Role Phone Dillan Jain MD Primary Care Provider [phone] Reason for Referral * Mammography (Routine) - Closed Specialty Diagnoses / Procedures Referred By Primo johnson Referred To Contact Radiology Diagnoses Encounter for screening mammogram for malignant neoplasm of breast Procedures MM MAMMO DIGITAL SCREENING W Dillan Trinidad MD [facility] [address] [place] [address] Phone: tel: fax: Referral ID Status Reason Start Date Expiration Date Visits Re quested Visits Authorized [id number] Closed 01/04/2021 01/04/2023 1 1 Reason for Visit * Mammography (Routine) - Closed Specialty Diagnoses / Procedures Referred By Primo johnson Referred To Contact Radiology Diagnoses Encounter for screening mammogram for malignant neoplasm of breast Procedures MM MAMMO DIGITAL SCREENING W Dillan Trinidad MD [facility] [address] [place] [address] Phone: tel: fax: Referral ID Status Reason Start Date Expiration Date Visits Re quested Visits Authorized [id number] Closed 01/04/2021 01/04/2023 1 1 Encounter Details Date Type Department Care Team (Latest Contact Info) Description 01/22/2021 1:27 PM EDT - 01/22/2021 11:59 PM EDT Hospital Encounter [facility] [address] [place] [address] Dillan Jain MD [address] [facility] [address] [place] [address] [...] EDT Impressions 01/22/2021 2:28 PM EDT Negative ??(PGG-Yvnylzos-4) ~ RECOMMENDATION: Routine screening mammogram in 1 [...] the next mammogram, in accordance with the [employer] [employer] and the Society of Breast Imaging recommendations. The mammogram was reviewed by a Radiologist and CAD. Narrative 01/22/2021 2:28 PM EDT Procedure:MM MAMMO DIGITAL SCREENING W CAD BILAT ~ Reason for exam: screening, asymptomatic. Z12.31-Encounter for screening mammogram for malignant neoplasm of zjyvxo-GVN-00-CM ~ MM MAMMO DIG SCREEN CAD BILAT [...] for screening mammogram for malignant neoplasm of jtjyac-SPR-82-CM ~ MM MAMMO DIG SCREEN CAD BILAT Bilateral CC and MLO view(s) were taken. There are scattered fibroglandular densities. Prior study comparison: Compared with prior studies the most recentbeing 01/20/20, 12/20/18 No mammographic evidence of malignancy. ~ IMPRESSION: Negative (KVY-Cgehgajg-1) ~ RECOMMENDATION: Routine screening mammogram in 1 [...] the next mammogram, in accordance with the [employer] and the Society of Breast Imaging recommendations. The mammogram was reviewed by a Radiologist and CAD. Dillan Jain MD IMG MAMMOGRAPHY ORDERABLE S Final Result documented in this encounter Visit Diagnoses Diagnosis Encounter for screening mammogram for malignant neoplasm of breast Other screening mammogram documented in this encounter Care Teams Separator Operator Relationship Specialty Start Date End Date Dillan Jain MD Critical access hospital0 [facility] [address] [place] [address] PCP - General Family Medicine 11/30/18 documented as of this encounter
--- OUTSIDE RECORDS SUMMARY | 2024-08-06 10:17 | XMS_ITS | Clinical Summary ---
Author Organization [facility] Address [facility] [place] [address] Phone Care Team Providers Care Microcomputer Technician Name Role Phone Dillan Jain MD Primary Care Provider [phone] Allergies No known active allergies Medications No [...] EDT Impressions 12/04/2023 3:40 PM EDT Negative ??(SMW-Atidlehe-4) ~ RECOMMENDATION: Routine screening mammogram in 1 [...] the next mammogram, in accordance with the [employer] and the Society of Breast Imaging recommendations. Narrative 12/04/2023 3:40 PM EDT Procedure:MM MAMMO DIGITAL LIGIA SCREEN BILAT ~ Reason for exam: screening, asymptomatic. Z12.31-Encounter for screening mammogram for malignant neoplasm of yklnkn-JSZ-16-CM ~ MM MAMMO DIGITAL LIGIA SCREEN BILAT [...] for screening mammogram for malignant neoplasm of xbudqi-ESU-17-CM ~ MM MAMMO DIGITAL LIGIA SCREEN BILAT Bilateral CC and MLO view(s) were taken. There are scattered fibroglandular densities. Prior study comparison: Compared with prior studies the most recentbeing 01/26/22, 01/22/21 No mammographic evidence of malignancy. ~ IMPRESSION: Negative (ZDH-Jgffdhsc-3) ~ RECOMMENDATION: Routine screening mammogram in 1 [...] the next mammogram, in accordance with the [employer] and the Society of Breast Imaging recommendations. Dillan Jain MD IMG MAMMOGRAPHY ORDERABLE S Final Result from Last 3 Months or Most Recently Relevant to Health Maintenance Insurance [place] [address] [employer] MEDIC[employer] SPPLM[employer] Care Teams Microcomputer Technician Relationship Specialty Start Date End Date Dillan Jain MD [address] [facility] [address] [place] [phone] PCP - General Family Medicine 11/30/18
--- OUTSIDE RECORDS SUMMARY | 2024-08-06 10:17 | XMS_ITS | Encounter Summary ---
Author Organization [facility] [place] [address] Care Team Providers Care Quality Measurement Specialist Name Role Phone Dillan Jain MD Primary Care Provider [phone] Encounter Details Date Type Department Care Team [...] on filedocumented in this encounter Care Teams Quality Measurement Specialist Relationship Specialty Start Date End Date Dillan Jain MD 12[address] [facility] [address] [place] [address] PCP - General Family Medicine 11/30/18 documented as of this encounter
--- OUTSIDE RECORDS SUMMARY | 2024-08-06 10:17 | XMS_ITS | Encounter Summary ---
Author Organization [place] [address] Care Team Providers Care Manager Aerospace Name Role Phone Dillan Jain MD Primary Care Provider [phone] Reason for Referral * Mammography (Routine) - Closed Specialty Diagnoses / Procedures Referred By Primo johnson Referred To Contact Radiology Diagnoses Encounter for screening mammogram for malignant neoplasm of breast Procedures MM MAMMO DIGITAL SCREENING W Dillan Trinidad MD [address] [place] [address] Phone: tel: fax: Referral ID Status Reason Start Date Expiration Date Visits Re quested Visits Authorized [id number] Closed 01/09/2020 01/08/2022 1 1 Reason for Visit * Mammography (Routine) - Closed Specialty Diagnoses / Procedures Referred By Primo johnson Referred To Contact Radiology Diagnoses Encounter for screening mammogram for malignant neoplasm of breast Procedures MM MAMMO DIGITAL SCREENING W Dillan Trinidad MD [address] [place] [address] Phone: tel: fax: Referral ID Status Reason Start Date Expiration Date Visits Re quested Visits Authorized [id number] Closed 01/09/2020 01/08/2022 1 1 Encounter Details Date Type Department Care Team (Latest Contact Info) Description 01/20/2020 1:30 PM EDT - 01/20/2020 11:59 PM EDT Hospital Encounter [place] [address] [place] [address] Dillan Jain MD 1210 [facility] [address] [place] [address] [...] EDT Impressions 01/20/2020 3:42 PM EDT Negative ??(AJL-Jhssnnkh-6) ~ RECOMMENDATION: Routine screening mammogram in 1 [...] for screening mammogram for malignant neoplasm of kgfrzb-LUM-68-CM ~ MM MAMMO DIG SCREEN CAD BILAT [...] for screening mammogram for malignant neoplasm of xpbhnw-VXV-61-CM ~ MM MAMMO DIG SCREEN CAD BILAT Bilateral CC and MLO view(s) were taken. There are scattered fibroglandular densities. Prior study comparison: Compared with prior studies the most recentbeing 12/20/18, 11/03/17 No mammographic evidence of malignancy. ~ IMPRESSION: Negative (RCU-Wgutoulx-3) ~ RECOMMENDATION: Routine screening mammogram in 1 [...] mammogram documented in this encounter Care Teams Manager Aerospace Relationship Specialty Start Date End Date Dillan Jain MD [address] [place] [address] [address] [place] [address] PCP - General Family Medicine 11/30/18 documented as of this encounter
--- OUTSIDE RECORDS SUMMARY | 2024-08-06 10:17 | XMS_ITS | Encounter Summary ---
Author Organization [place] [address] Care Team Providers Care Bonded Structures Repairer Name Role Phone Nakul Jain MD Primary Care Provider [phone] Reason for Visit * Mammography (Routine) - Closed Specialty Diagnoses / Procedures Referred By Contac t Referred To Contact Radiology Diagnoses Other screening mammogram Procedures MM MOBILE MAMMO DIGITAL SCREEN W CAD DOMINIC Dillan Jain MD [address] [place] [address] [address] [place] [address] Phone: tel: fax: Referral ID Status Reason Start Date Expiration Date Visits Re quested Visits Authorized [id number] Closed 04/16/2014 10/13/2014 1 1 Encounter Details Date Type Department Care Team (Latest Contact Info) Description 04/23/2014 5:37 AM EDT - 04/23/2014 11:59 PM EDT Hospital Encounter [facility] Other Location View online schedule for mobile van location [phone] Dillan Jain MD [address] [place] [address] [address] [place] [address] Other screening mammogram Discharge Disposition: [...] MM MOBILE MAMMO DIGITAL SCREEN W CAD ODMINIC Routine 04/23/2014 11:45 AM EDT Other screening mammogram documented in this encounter Results * MM MOBILE MAMMO DIGITAL SCREEN W CAD DOMINIC (04/23/2014 11:45 AM EDT) Anatomical Region Laterality Modality Breast Mammography 04/24/2014 2:58 PM EDT Impressions 04/24/2014 2:58 PM EDT : Negative ??(GQC-Wbjkcgge-1) ~ RECOMMENDATION: Routine screening mammogram in 1 [...] most recent being 04-24-13. ~ IMPRESSION: Negative (STD-Mpirxeqx-4) ~ RECOMMENDATION: Routine screening mammogram in 1 [...] mammogram documented in this encounter Care Teams Bonded Structures Repairer Relationship Specialty [place] [address] [place] [address] [place] [phone] PCP - General Psychiatry & Neurology-Neurology 04/09/12 11/29/18 documented as of this encounter
--- OUTSIDE RECORDS SUMMARY | 2024-08-06 10:17 | XMS_ITS | Encounter Summary ---
Author Organization [place] [address] Care Team Providers Care Draw In Hand Name Role Phone Nakul Jain MD Primary Care Provider [phone] Reason for Visit * Reason Onset Date Comments Abnormal Radiology 05/01/2015 Encounter Details Date Type Department Care Team (Late st Contact Info) Description 05/01/2015 Telephone [facility] [address] [place] [address] Dyan Comer, Clerical Staff Abnormal Radiology Social [...] for additional views. She was transferred to [facility]. Additional imaging scheduled 05/20 GRT. * Telephone Encounter - Kathy Villa RN - 05/01/2015 4:10 PM EDT Patient returned call and left message. Attempt to return call unsuccessful. Message left asking patient to contact [phone] within next 15 minutes or after 8:00 am on 05/04. * Telephone Encounter - Kathy Villa, BAO - 05/01/2015 2:12 PM EDT Attempted contact to notify patient of need for additional views, using all numbers provided in EPIC. Message left asking patient to contact NN at [phone]. * Telephone Encounter - Dyan Comer, Clerical Staff - 05/01/2015 10:34 AM EDT Insurance Medicare PCP is Dr. Dillan Jain documented in this encounter Plan of Treatment Not on file documented as of this encounter Visit Diagnoses Not on filedocumented in this encounter Care Teams Draw In Hand Relationship Specialty Start Date End Date Nakul Jain MD [address] [place] [address] [place] [phone] PCP - General Psychiatry & Neurology-Neurology 04/09/12 11/29/18 documented as of this encounter
--- OUTSIDE RECORDS SUMMARY | 2024-08-06 10:17 | XMS_ITS ---
Author Organization [facility] Address [address] [facility] 36 [facility] [address] [place] [id number] Care Team Providers Care Registered Nurses Name Role Phone Yannick Jain Primary Care Provider REASON FOR VISIT Controlled Rx MEDICATIONS Medication SIG (Take, Route, Fr equency, Duration) Notes Start Date End Date Status Gabapentin 300 MG 1 cap(s) orally 2 times a day Active Encounters Encounter Location Date Provider Diagnosis [facility] 36 [facility] [address] [place] [phone] 07/11/2024 Yannick Jain Other chronic pain G89.29 ASSESSMENTS Encounter Date Diagnosis Assessment Notes Treatment Notes Treatment Clinical Notes 07/11/2024 Other chronic pain (ICD-10 - G89.29) PLAN OF TREATMENT Medication Medication Name Sig Start Date Stop Date Notes Gabapentin 300 MG 1 cap(s) orally 2 times a day 07/12/2024 Next Appt Details Provider Name:Yannick Luna er, 08/19/2024 01:15:00 PM, [facility] [facility] 36 [facility], [address], [place], [phone],
--- OUTSIDE RECORDS SUMMARY | 2024-08-06 10:17 | XMS_ITS | Encounter Summary ---
Author Organization [place] [address] Care Team Providers Care Lower In Supervisor Name Role Phone Nakul Jain MD Primary Care Provider [phone] Reason for Visit * Mammography (Routine) - Closed Specialty Diagnoses / Procedures Referred By Contac t Referred To Contact Radiology Diagnoses Other screening mammogram Procedures MM MOBILE MAMMO DIGITAL SCREEN W CAD DOMINIC Dillan Jain MD [address] [place] [address] [address] [place] [address] Phone: tel: fax: Referral ID Status Reason Start Date Expiration Date Visits Re quested Visits Authorized [id number] Closed 04/03/2013 09/30/2013 1 1 Encounter Details Date Type Department Care Team (Latest Contact Info) Description 04/24/2013 5:38 AM EDT - 04/24/2013 11:59 PM EDT Hospital Encounter [facility] Other Location View online schedule for mobile van location [phone] Dillan Jain MD [address] [place] [address] [address] [place] [address] Other screening mammogram Discharge Disposition: [...] Impressions 04/25/2013 10:06 AM EDT : Negative ??(ZPB-Ospypqth-8) ~ RECOMMENDATION: Routine screening mammogram in 1 [...] most recent being 04-25-12 ~ IMPRESSION: Negative (IOX-Ejhagahv-9) ~ RECOMMENDATION: Routine screening mammogram in 1 [...] mammogram documented in this encounter Care Teams Lower In Supervisor Relationship Specialty Start Date End Date Nakul Jain MD [address] [facility] [place] [phone] PCP - General Psychiatry & Neurology-Neurology 04/09/12 11/29/18 documented as of this encounter
--- OUTSIDE RECORDS SUMMARY | 2024-08-06 10:17 | XMS_ITS | Encounter Summary ---
Author Organization [facility] [place] [address] Care Team Providers Care Software Implementation Project Manager Name Role Phone Nakul Jain MD Primary Care Provider [phone] Reason for Visit * Mammography (Routine) - Closed Specialty Diagnoses / Procedures Referred By Contac t Referred To Contact Radiology Diagnoses Breast density Procedures MM US BREAST LIMITED RIGHT Dillan Jain MD [address] [place] [address] [address] [place] [address] Phone: tel: fax: Referral ID Status Reason Start Date Expiration Date Visits Re quested Visits Authorized [id number] Closed 05/01/2015 04/30/2016 1 1 Encounter Details Date Type Department Care Team (Latest Contact Info) Description 05/20/2015 2:30 PM EDT - 05/20/2015 11:59 PM EDT Hospital Encounter [facility] Ultrasound [address] [place] [address] Dillan Jain MD [address] [place] [address] [address] [place] [address] Breast density Discharge Disposition: Home [...] 05/22/2015 8:29 AM EDT : Probably benign (XNB-Xvmcbtxt-2) ~ As a conservative measure, recommend six month right diagnostic mammogram. ~ RECOMMENDATION: Follow-up diagnostic mammogram of the right breast in 6 months. Narrative 05/22/2015 8:29 AM EDT MM US BREAST LIMITED RIGHT RIGHT BREAST ULTRASOUND, 05-20-15: ~ Indication: ??Asymptomatic abnormal screen. ~ Findings: ~ Lateral right breast, centered around 9:00 position was scanned by both short order fry cook and dictating radiologist. No solid or cystic mass lesion seen. No abnormal shadowing. ~ Dillan Jain MD IMG MAMMOGRAPHY ORDERABLE S Final Result documented in this encounter Visit Diagnoses Diagnosis Breast density Other sign and symptom in breast documented in this encounter Care Teams Software Implementation Project Manager Relationship Specialty Start Date End Date Nakul Jain MD [address] [place] [address] [place] [phone] PCP - General Psychiatry & Neurology-Neurology 04/09/12 11/29/18 documented as of this encounter
--- OUTSIDE RECORDS SUMMARY | 2024-08-06 10:17 | XMS_ITS | Encounter Summary ---
Author Organization [place] [address] Care Team Providers Care Office Agent Name Role Phone Nakul Jain MD Primary Care Provider [phone] Reason for Visit * Mammography (Routine) - Closed Specialty Diagnoses / Procedures Referred By Contac t Referred To Contact Radiology Diagnoses Breast density Procedures MM MAMMO DIGITAL DIAGNOSTIC W CAD RIGHT Dillan Jain MD [address] [place] [address] [address] [place] [address] Phone: tel: fax: Referral ID Status Reason Start Date Expiration Date Visits Re quested Visits Authorized [id number] Closed 05/01/2015 04/30/2016 1 1 Encounter Details Date Type Department Care Team (Latest Contact Info) Description 05/20/2015 1:58 PM EDT - 05/20/2015 2:29 PM EDT Hospital Encounter [address] [place] [address] Dillan Jain MD [address] [place] [address] [address] [place] [address] Breast density Discharge Disposition: Home [...] AM EDT : Incomplete-need additional imaging evaluation (EKB-Ghjczhus-9) ~ Further evaluation with right breast ultrasound [...] breast documented in this encounter Care Teams Office Agent Relationship Specialty Start Date End Date Nakul Jain MD [address] [place] [address] PCP - General Psychiatry & Neurology-Neurology 04/09/12 11/29/18 documented as of this encounter
--- OUTSIDE RECORDS SUMMARY | 2024-08-06 10:17 | XMS_ITS | Encounter Summary ---
Author Organization [place] [address] Care Team Providers Care Software Development Engineer Name Role Phone Dillan Jain MD Primary Care Provider [phone] Reason for Visit * Mammography (Routine) - Closed Specialty Diagnoses / Procedures Referred By Contac t Referred To Contact Radiology Diagnoses Encounter for screening mammogram for malignant neoplasm of breast Procedures MM MAMMO DIGITAL SCREENING W CAD BILAT MM MAMMO DIGITAL SCREENING W CAD BILAT Dillan Jain MD 1210 [facility] [address] [place] [address] Phone: tel: fax: Referral ID Status Reason Start Date Expiration Date Visits Re quested Visits Authorized [id number] Closed 10/22/2018 10/22/2020 1 1 Encounter Details Date Type Department Care Team (Latest Contact Info) Description 12/20/2018 1:26 PM EDT - 12/20/2018 11:59 PM EDT Hospital Encounter [address] [address] Encounter for screening mammogram for malignant neoplasm [...] EDT Impressions 12/20/2018 4:23 PM EDT Negative ??(ERB-Vgkbknjk-6) ~ RECOMMENDATION: Routine screening mammogram in 1 [...] for screening mammogram for malignant neoplasm of dyfkct-GGS-72-CM ~ MM MAMMO DIG SCREEN CAD BILAT [...] for screening mammogram for malignant neoplasm of hfsrnv-PGF-94-CM ~ MM MAMMO DIG SCREEN CAD BILAT Bilateral CC and MLO view(s) were taken. There are scattered fibroglandular densities. Prior study comparison: Compared with prior studies the most recentbeing 11/03/17, 11/04/16 No mammographic evidence of malignancy. ~ IMPRESSION: Negative (UIV-Lvugjoip-6) ~ RECOMMENDATION: Routine screening mammogram in 1 [...] mammogram documented in this encounter Care Teams Software Development Engineer Relationship Specialty Start Date End Date Dillan Jain MD [facility] [address] [address] [place] [address] PCP - General Family Medicine 11/30/18 documented as of this encounter
--- OUTSIDE RECORDS SUMMARY | 2024-08-06 10:17 | XMS_ITS ---
Author Organization [facility] Address [address] [facility] [address] [place], [place] [id number] Care Team Providers Care Edger Hand Name Role Phone Yannick Jain Primary Care Provider [phone] Lydia Moseley Unavailable [phone] ALLERGIES Allergen (clinical drug ingredient) Drug/Non Drug [...] Lab: Notes/Report: REASON FOR VISIT head cold MEDICATIONS Medication SIG (Take, Route, Frequency, Duration) [...] once a day for 90 days Active Atorvastatin [...] one daily for 4 days orally as directed for 5 days 07/29/2024 Active Metoprolol Succinate ER 50 MG 1 tab(s) o rally once a day for 30 day(s) Active Losartan Potassium 50 MG 1 tablet Orally Once a day for 30 day(s) Active Hydroxychloroquine Sulfate 2 00 MG 1 tab twice daily Active VITAL SIGNS Weight 265.8 lbs 07/29/2024 Blood pressure systolic 110 mm Hg 07/29/20 24 Blood pressure diastolic 68 mm Hg 024 Heart Rate 71 /min 07/29/2024 Height 65.25 in 07/29/2024 BMI 43.89 kg/m2 07/29/2024 Encounters Encounter Location Date Provider Diagnosis [facility] [address] [place], [place] [id number] 07/29/2024 Lydia Moseley URI (upper respirato ry infection) J06.9 and Leg edema R60.0 ASSESSMENTS Encounter Date Diagnosis Assessment Notes Treatment Notes Treatment Clinical Notes 07/29/2024 URI (upper respiratory infection) (ICD-10 - J06.9) fluids, rest, supportive measures for fever/symptom relief 07/29/2024 Leg edema (ICD-10 - R60.0) needs US of right leg; low salt diet PLAN OF TREATMENT Medication Medication Name Sig Start Date Stop Date Notes Spironolactone 25 MG 1 tab(s) orally bid Triamterene-HCTZ 37.5-25 MG 1 tab(s) orally once a day Albuterol Sulfate HFA 108 (9 0 Base) MCG/ACT 1 puff as needed Inhalation every 4 hrs prn 07/29/2024 Zithromax Z-Igor 250 MG 2 pills first day then one daily for 4 days orally as directed for 5 days 07/29/2024 Treatment Notes Assessment Notes URI (upper respiratory infection) fluids , rest, supportive measures for fever/symptom relief Leg edema needs US of right le g; low salt diet Next Appt Details Follow Up: 1 Week with labs, Reason: Provider Name:Yannick Luna , 08/19/2024 01:15:00 PM, [address] [facility] [address] [facility], [address], [place], [place], [id number], Progress Notes * Examination Category Sub-Category Detail Notes ENT/Respiratory Oral cavity : no erythema or e xudate seen on pharynx Ears: auditory canals norm al bilaterally, tympanic membranes normal bilaterally Neck : supple, no cervical lymphadenopathy Heart : RRR Lungs: few crackles right a nterior chest; no wheezing Extremities : bilateral leg edema ..> on the right General Appearance: well nourished and h ydrated, NAD, alert Nose : nares patent Eyes: sclera and conjuncti va clear History and Physical Notes * HPI (History of Present Illness) Category Sub-Category Detail Notes ENT/respiratory sore throat ear pain Short of Breath cough due to drainage Fever headache Pt sts she has a hea dache now, but sts she has not really eaten much today chest congestion wheezing smoking dizziness body aches
--- OUTSIDE RECORDS SUMMARY | 2024-08-06 10:17 | XMS_ITS | Encounter Summary ---
Author Organization [place] [address] Care Team Providers Care Director Of Child Welfare Services Name Role Phone Nakul Jain MD Primary Care Provider [phone] Reason for Referral * Mammography (Routine) - Closed Specialty Diagnoses / Procedures Referred By Primo johnson Referred To Contact Radiology Diagnoses Visit for screening mammogram Procedures MM MAMMO DIGITAL SCREENING W Dillan Trinidad MD [address] [place] [address] [address] [place] [phone] Phone: tel: fax: Referral ID Status Reason Start Date Expiration Date Visits Re quested Visits Authorized [id number] Closed 11/01/2016 11/01/2018 1 1 Reason for Visit * Mammography (Routine) - Closed Specialty Diagnoses / Procedures Referred By Primo johnson Referred To Contact Radiology Diagnoses Visit for screening mammogram Procedures MM MAMMO DIGITAL SCREENING W Dillan Trinidad MD [address] [place] [address] [address] [place] [address] Phone: tel: fax: Referral ID Status Reason Start Date Expiration Date Visits Re quested Visits Authorized [id number] Closed 11/01/2016 11/01/2018 1 1 Encounter Details Date Type Department Care Team (Latest Contact Info) Description 11/04/2016 1:26 PM EDT - 11/04/2016 11:59 PM EDT Hospital Encounter [address] [place] [address] Dillan Jain MD [address] [facility] [address] [place] [address] [...] Impressions 11/08/2016 8:16 AM EDT : Negative ??([id number]-6) ~ RECOMMENDATION: Routine screening mammogram in 1 [...] mammogram documented in this encounter Care Teams Director Of Child Welfare Services Relationship Specialty Start Date End Date Nakul Jain MD [address] [place] [address] [address] [place] [phone] PCP - General Psychiatry & Neurology-Neurology 04/09/12 11/29/18 documented as of this encounter
--- OUTSIDE RECORDS SUMMARY | 2024-08-06 10:17 | XMS_ITS | Encounter Summary ---
Author Organization [place] [address] Care Team Providers Care Wiring Mechanic Name Role Phone Dillan Jain MD Primary Care Provider [phone] Reason for Referral * Mammography (Routine) - Pending Review Specialty Diagnoses / Procedures Referred By Primo johnson Referred To Contact Radiology Diagnoses Encounter for screening mammogram for malignant neoplasm of breast Procedures MM MAMMO DIGITAL LIGIA SCREEN Dillan Shea MD [facility] [place] [address] [address] [place] [phone] Phone: tel: fax: Referral ID Status Reason Start Date Expiration Date V isits Requested Visits Authorized [id number] Pending Review 01/18/2023 01/18/2025 1 1 Reason for Visit * Mammography (Routine) - Pending Review Specialty Diagnoses / Procedures Referred By Primo johnson Referred To Contact Radiology Diagnoses Encounter for screening mammogram for malignant neoplasm of breast Procedures MM MAMMO DIGITAL LIGIA SCREEN Dillan Shea MD [facility] [address] [address] [place] [address] Phone: tel: fax: Referral ID Status Reason Start Date Expiration Date V isits Requested Visits Authorized [id number] Pending Review 01/18/2023 01/18/2025 1 1 Encounter Details Date Type Department Care Team (Latest Contact Info) Description 12/04/2023 3:04 PM EDT - 12/04/2023 11:59 PM EDT Hospital Encounter [facility] Mammography [address] [place] [address] Dillan Jain MD [address] [address] [place] [address] Encounter [...] EDT Impressions 12/04/2023 3:40 PM EDT Negative ??(AUI-Bwuckgog-7) ~ RECOMMENDATION: Routine screening mammogram in 1 [...] for screening mammogram for malignant neoplasm of gjhyrf-VJO-93-CM ~ MM MAMMO DIGITAL LIGIA SCREEN BILAT [...] for screening mammogram for malignant neoplasm of xdaefv-OVF-85-CM ~ MM MAMMO DIGITAL LIGIA SCREEN BILAT Bilateral CC and MLO view(s) were taken. There are scattered fibroglandular densities. Prior study comparison: Compared with prior studies the most recentbeing 01/26/22, 01/22/21 No mammographic evidence of malignancy. ~ IMPRESSION: Negative (SUU-Xtzueurc-9) ~ RECOMMENDATION: Routine screening mammogram in 1 [...] mammogram documented in this encounter Care Teams Wiring Mechanic Relationship Specialty Start Date End Date Dillan Jain MD [address] [place] [address] [address] [place] [id number] PCP - General Family Medicine 11/30/18 documented as of this encounter
--- OUTSIDE RECORDS SUMMARY | 2024-08-06 10:17 | XMS_ITS | Encounter Summary ---
Author Organization [facility] [place] [address] Care Team Providers Care Coin Machine Collector Name Role Phone Nakul Jain MD Primary Care Provider [phone] Reason for Visit * Mammography (Routine) - Closed Specialty Diagnoses / Procedures Referred By Contac t Referred To Contact Radiology Diagnoses Other screening mammogram Procedures MM MOBILE MAMMO DIGITAL SCREEN W CAD DOMINIC Dillan Jain MD [address] [place] [address] [address] [place] [address] Phone: tel: fax: Referral ID Status Reason Start Date Expiration Date Visits Re quested Visits Authorized [id number] Closed 04/08/2015 04/07/2016 1 1 Encounter Details Date Type Department Care Team (Latest Contact Info) Description 04/28/2015 10:00 AM EDT - 04/28/2015 11:59 PM EDT Hospital Encounter Mobile Mammography Other Location View online schedule for mobile van location [phone] Dillan Jain MD [address] [place] [address] [address] [place] [address] Other screening mammogram Discharge Disposition: [...] PM EDT : Incomplete-need additional imaging evaluation (SDZ-Imxonnax-8) ~ RECOMMENDATION: Special view mammogram and ultrasound [...] mammogram documented in this encounter Care Teams Coin Machine Collector Relationship Specialty Start Date End Date Nakul Jain MD [address] [place] [address] [place] [phone] PCP - General Psychiatry & Neurology-Neurology 04/09/12 11/29/18 documented as of this encounter
--- OUTSIDE RECORDS SUMMARY | 2024-08-06 10:17 | XMS_ITS | Encounter Summary ---
Author Organization [place] [address] Care Team Providers Care Baseball Club Manager Name Role Phone Dillan Jain MD Primary Care Provider [phone] Reason for Referral * Mammography (Routine) - Closed Specialty Diagnoses / Procedures Referred By Primo johnson Referred To Contact Radiology Diagnoses Encounter for screening mammogram for malignant neoplasm of breast Procedures MM MAMMO DIGITAL LIGIA SCREEN Dillan Shea MD [facility] [address] [address] [place] [address] Phone: tel: fax: Referral ID Status Reason Start Date Expiration Date Visits Re quested Visits Authorized [id number] Closed 2022 01/08/2024 1 1 Reason for Visit * Mammography (Routine) - Closed Specialty Diagnoses / Procedures Referred By Primo johnson Referred To Contact Radiology Diagnoses Encounter for screening mammogram for malignant neoplasm of breast Procedures MM MAMMO DIGITAL LIGIA SCREEN Dillan Shea MD [facility] [address] [address] [place] [address] Phone: tel: fax: Referral ID Status Reason Start Date Expiration Date Visits Re quested Visits Authorized [id number] Closed 2022 01/08/2024 1 1 Encounter Details Date Type Department Care Team (Latest Contact Info) Description 01/26/2022 12:18 PM EDT - 01/26/2022 11:59 PM EDT Hospital Encounter [facility] Mammography [address] [place] [address] Dillan Jain MD 1210 [facility] [address] [place] [...] EDT Impressions 01/26/2022 3:21 PM EDT Negative ??(DWI-Xpqgylvw-4) ~ RECOMMENDATION: Routine screening mammogram in 1 [...] the next mammogram, in accordance with the [place] College [employer]iology and the Society of Breast Imaging recommendations. Narrative 01/26/2022 3:21 PM EDT Procedure:MM MAMMO DIGITAL LIGIA SCREEN BILAT ~ Reason for exam: screening, asymptomatic. Z12.31-Encounter for screening mammogram for malignant neoplasm of dmcclv-WFG-43-CM ~ MM MAMMO DIGITAL LIGIA SCREEN BILAT [...] for screening mammogram for malignant neoplasm of zpmuop-BKY-66-CM ~ MM MAMMO DIGITAL LIGIA SCREEN BILAT Bilateral CC and MLO view(s) were taken. There are scattered fibroglandular densities. Prior study comparison: Compared with prior studies the most recentbeing 01/22/21, 01/20/20 No mammographic evidence of malignancy. ~ IMPRESSION: Negative (HFP-Vceqozku-2) ~ RECOMMENDATION: Routine screening mammogram in 1 [...] the next mammogram, in accordance with the [place] College [employer] Radiology and the Society of Breast Imaging recommendations. Dillan Jain MD IMG MAMMOGRAPHY ORDERABLE S Final Result documented in this encounter Visit Diagnoses Diagnosis Encounter for screening mammogram for malignant neoplasm of breast Other screening mammogram documented in this encounter Care Teams Baseball Club Manager Relationship Specialty Start Date End Date Dillan Jain MD [address] [place] [address] [address] [place] [address] PCP - General Family Medicine 11/30/18 documented as of this encounter
--- OUTSIDE RECORDS SUMMARY | 2024-08-06 10:17 | XMS_ITS | Encounter Summary ---
Author Organization [place] [address] Care Team Providers Care Airport Maintenance Chief Name Role Phone Nakul Jain MD Primary Care Provider [phone] Reason for Referral * Vascular Imaging (Emergency) - Closed Specialty Diagnoses / Procedures Referred By Contac t Referred To Contact Radiology Diagnoses Left leg swelling Procedures VA US LOWER EXTREMITY VENOUS LEFT Nakul Lewis MD [address] [place] [address] [place] [address] Phone: tel: fax: Referral ID Status Reason [...] 7:04 PM EST Emergency [facility] [address] [place] [address] Nakul Lewis MD [address] [place] [address] [place] [address] Left leg swelling (Primary Dx); [...] extremity ultrasound tomorrow. Call Central Scheduling at [phone]. Elevate left lower extremity is much as possible. Warm compresses to affected area. Take medications as prescribed. Return to ED for chest pain, shortness of breath or other concern. * Attachments The following attachments cannot be sent through Care Everywhere. * EDEMA, [id number] (ESTONIAN) * CELLULITIS, [id number] (ESTONIAN) documented in this encounter Medications at Time [...] Code Departure Means Destination Home or Self [facility] documented in this encounter ED Notes * [...] Range Neut Percent 49.0 Lymph Percent 37.4 Duval Percent 8.6 Eos Percent 3.6 Baso Percent 1.4 Neut# 4.7 1.8 - 7.7 x10(3)/mcL Lymph# 3.6 0.6 - 4.8 x10(3)/mcL Duval# 0.8 0.0 - 1.3 x10(3)/mcL Eos# 0.3 [...] plan discussed with the patient and/or responsible constitution party. The patient and/or responsible constitution party was given the opportunity to ask questions and have them answered by myself prior to discharge. The patient and/or responsible constitution party verbalized understanding of the discharge plan. FINAL IMPRESSION 1. Left leg swelling 2. Cellulitis of left foot Discharge in stable condition. Electronically signed by: This chart was completed using voice recognition technology and may contain unintended errors Delia Lynch APRN 10/15/14 [id number] Cosigned by Nakul Lewis MD at 10/17/2014 [...] EST documented in this encounter Results * [place] US LOWER EXTREMITY VENOUS LEFT (10/16/2014 12:00 [...] right commonfemoral vein. us Nakul Lewis MD [facility] VASCULAR ORDERABLES Fin [...] LAB Lymph Percent 37.4 % [facility] Duval Percent 8.6 % [facility] Eos Percent 3.6 % [facility] Baso Percent 1.4 % [facility] Neut# 4.7 1.8 - 7.7 x10(3)/mcL [facility] Lymph# 3.6 0.6 - 4.8 x10(3)/mcL [facility] Duval# 0.8 0.0 - 1.3 x10(3)/mcL [facility] Eos# 0.3 0.0 - 0.5 x10(3)/mcL [facility] Baso# 0.1 0.0 - 0.2 x10(3)/mcL [facility] Blood specimen (specimen) 10/15/2014 6:05 PM EST 10/15/2014 6:10 PM EST Nakul Lewis MD HEMATOLOGY ORDERABLES Final Result [facility] [address] [place] [address] * (ABNORMAL) BASIC METABOLIC PANEL (10/15/2014 6:05 PM EST) Sodium 137 136 - 145 mmol/L [facility] Potassium 3.6 3.5 - 5.0 mmol/L [facility] Chloride 100 98 - 107 mmol/L [facility] Total CO2 25 22 - 29 mmol/L [facility] Anion Gap 12 7 - 16 mmol/L [facility] Calcium 9.6 8.8 - 10.2 mg/dL [facility] Glucose Lvl 109(H) 82 - 100 mg/dL [facility] BUN 13 8 - 23 mg/dL [facility] Creatinine 0.57 0.51 - 1.30 mg/dL [facility] GFR Afr Am >60 [facility] Comment: GFR is estimated using creatinine, age, gender, and race. ??GFR has been validated for patients between 18 and 70 years of age. GFR has not been validated for women, patients with serious comorbid conditions, or persons with extremes of body size, muscle mass, or nutritional status. ??For additional information: ??www.kidney.org. GFR Non Afr Am >60 [facility] Blood specimen (specimen) UPPER LIMB STRUCTURE / Unknown 10/15/2014 6:05 PM EST 10/15/2014 6:10 PM EST Nakul Lewis MD CHEMISTRY ORDERABLES Edited Result - Final [facility] [address] [place] [address] * (ABNORMAL) D-DIMER (10/15/2014 6:05 PM EST) D-Dimer 261(H) <=230 ng/mL D-DU [facility] Comment: This test has been clinically validated by the hospital mortician and approved by the FDA for exclusion [...] HEMATOLOGY ORDERABLES Final Result Performing Organization Address City/[facility]/ZIP Co de Phone Number [facility] [address] [place] [address] * CBC WITH AUTO DIFF (10/15/2014 6:05 PM EST) WBC 9.6 4.0 - 11.0 x10(3)/mcL [facility] RBC 4.85 3.80 - 5.10 x10(6)/mcL [facility] Hgb 14.9 12.0 - 15.6 gm/dL [facility] Hct 44.3 35.7 - 45.9 % [facility] MCV 91.4 82.5 - 99.8 fL [facility] MCH 30.7 27.0 - 34.3 pg [facility] MCHC 33.6 32.1 - 35.3 gm/dL [facility] RDW 13.5 11.5 - 15.0 % [facility] Platelet 277 144 - 423 x10(3)/mcL [facility] MPV 9.1 6.8 - 10.8 fL [facility] Blood specimen (specimen) UPPER LIMB STRUCTURE / Unknown 10/15/2014 6:05 PM EST 10/15/2014 6:10 PM EST Nakul Lewis MD HEMATOLOGY ORDERABLES Final Result Performing Organization Address [facility] Co de Phone Number [facility] [address] [place] [address] documented in this encounter Visit Diagnoses Diagnosis [...] 10/15/2014 documented in this encounter Care Teams Airport Maintenance Chief Relationship Specialty Start Date End Date Nakul Jain MD [address] [place] [address] [place] [phone] PCP - General Psychiatry & Neurology-Neurology 04/09/12 11/29/18 documented as of this encounter
--- OUTSIDE RECORDS SUMMARY | 2024-08-06 10:17 | XMS_ITS | Encounter Summary ---
Author Organization [facility] [place] [address] Care Team Providers Care Customer Services Coordinator Name Role Phone Dillan Jain MD Primary Care Provider [phone] Encounter Details Date Type Department Care Team [...] on filedocumented in this encounter Care Teams Customer Services Coordinator Relationship Specialty Start Date End Date Dillan Jain MD [address] [facility] [address] [place] [address] PCP - General Family Medicine 11/30/18 documented as of this encounter
--- OUTSIDE RECORDS SUMMARY | 2024-08-06 10:17 | XMS_ITS | Encounter Summary ---
Author Organization [facility] [place] [address] Care Team Providers Care Bodywork Therapist Name Role Phone Dillan Jain MD Primary Care Provider [phone] Encounter Details Date Type Department Care Team [...] on filedocumented in this encounter Care Teams Bodywork Therapist Relationship Specialty Start Date End Date Dillan Jain MD [address] [facility] [address] [place] [address] PCP - General Family Medicine 11/30/18 documented as of this encounter
--- OUTSIDE RECORDS SUMMARY | 2024-08-06 10:17 | XMS_ITS ---
Author Organization [facility] Address [address] [facility] [address] [facility] [address] [place] [id number] Care Team Providers Care Oil Heater Installer Name Role Phone Yannick Jain Primary Care [...] 05/20/2024 Encounters Encounter Location Date Provider Diagnosis [facility] [address] [facility] [address] [facility] [address] [place] [id number] 05/20/2024 Yannick Jain Essential hypertensi on I10 [...] Name:Yannick Luna er, 08/19/2024 01:15:00 PM, [address] [facility] [address] [facility], [address], [place], [phone], Progress Notes * Examination Category Sub-Category Detail [...]
--- OUTSIDE RECORDS SUMMARY | 2024-08-06 10:18 | XMS_ITS | Encounter Summary ---
Author Organization [place] [address] Care Team Providers Care Cone Picker Name Role Phone Unavailable Primary Care Provider Unavailabl e Encounter Details Date Type Department Care Team (Late st Contact Info) Description 05/15/2001 6:25 AM EDT - 05/15/2001 9:50 AM EDT Hospital Encounter [facility] Billy Carlin A [address] [facility] [address] [place] [address] Social History Tobacco Use Types Packs/Day Years [...]
--- OUTSIDE RECORDS SUMMARY | 2024-08-06 10:18 | XMS_ITS | Encounter Summary ---
Author Organization [place] [address] Care Team Providers Care Licensed And Certified Midwife Name Role Phone Unavailable Primary Care Provider Unavailabl e Encounter Details Date Type Department Care Team (Late st Contact Info) Description 06/03/2001 7:06 AM EDT - 06/03/2001 11:59 PM EDT Hospital Encounter [facility] Boris Baer MD [address] [place] [address] Social History Tobacco Use Types Packs/Day [...]
--- OUTSIDE RECORDS SUMMARY | 2024-08-06 10:18 | XMS_ITS | Encounter Summary ---
Author Organization [place] [address] Care Team Providers Care Scada Operator Name Role Phone Unavailable Primary Care Provider Unavailabl e Encounter Details Date Type Department Care Team (Late st Contact Info) Description 05/23/2001 10:30 AM EDT - 05/23/2001 3:20 PM EDT Hospital Encounter [facility] Kimberly Mar MD [address] [place] [address] Social History Tobacco Use Types [...]
--- OUTSIDE RECORDS SUMMARY | 2024-08-06 10:18 | XMS_ITS | Encounter Summary ---
Author Organization [place] [address] Care Team Providers Care Automobile Painter Name Role Phone Unavailable Primary Care Provider Unavailabl e Encounter Details Date Type Department Care Team (Late st Contact Info) Description 04/21/2006 3:42 PM EDT - 04/21/2006 11:59 PM EDT Hospital Encounter [facility] WOM MOB EDG Kingsley Aaron [address] [facility] [address] [place] [address] Social History Tobacco Use Types Packs/Day Years [...] comparison- March 06, 2002, mammogram performed at [facility]. ??January 19, 2001, mammogram performed at [facility]. There are scattered fibroglandular densities. ??No significant changes when compared with prior studies. IMPRESSION- No radiographic evidence of malignancy ? ([id number]) RECOMMENDATION- Routine screening mammogram in 1 year. * The patient with a palpable abnormality, unexplained by breast imaging, should be managed on clinical basis by the attending physician. * Breast imaging has a false negative rate of 15%. * The patient was notified by mail of the results of this examination. The mammogram was reviewed by a Radiologist and CAD. ? Turbine Technician- RAFI URBANO ? Reading Radiologist- ABDI KHOURY ? Released Date Time- 05/16/062134 Procedure Note Abdi Khoury - 10/28/2009 Procedure-MV MAMMO SCREEN W/CAD PANEL Mobile Screening Mammogram Bilateral CC and MLO view(s) were taken. Prior study comparison- March 06, 2002, mammogram performed at [facility]. January 19, 2001, mammogram performed at [facility]. There are scattered fibroglandular densities. No significant changes when compared with prior studies. IMPRESSION- No radiographic evidence of malignancy ([id number]) RECOMMENDATION- Routine screening mammogram in 1 year. * The patient with a palpable abnormality, unexplained by breast imaging, should be managed on clinical basis by the attending physician. * Breast imaging has a false negative rate of 15%. * The patient was notified by mail of the results of this examination. The mammogram was reviewed by a Radiologist and CAD. Turbine Technician- RAFI URBANO Reading Radiologist- ABDI KHOURY MD Released Date Time- 05/16/062134 [facility] documented in this encounter Visit Diagnoses Not on filedocumented in this encounter
--- OUTSIDE RECORDS SUMMARY | 2024-08-06 10:18 | XMS_ITS | Encounter Summary ---
Author Organization [place] [address] Care Team Providers Care Drying Tunnel Operator Name Role Phone Nakul Jain MD Primary Care Provider [phone] Encounter Details Date Type Department Care Team (Late st Contact Info) Description 04/25/2012 5:40 AM EDT - 04/25/2012 11:59 PM EDT Hospital Encounter Mobile Mammography Other Location View online schedule for mobile van location [phone] [place] [address] [place] [address] [address] [place] [address] Other screening mammogram Discharge Disposition: [...] EDT : No radiographic evidence of malignancy ([id number]) ~ RECOMMENDATION: Routine screening mammogram in 1 [...] ~ IMPRESSION: No radiographic evidence of malignancy ([id number]) ~ RECOMMENDATION: Routine screening mammogram in 1 [...] mammogram documented in this encounter Care Teams Drying Tunnel Operator Relationship Specialty Start Date End Date Nakul Jain MD [address] [place] [address] [place] [phone] PCP - General Psychiatry & Neurology-Neurology 04/09/12 11/29/18 documented as of this encounter
--- OUTSIDE RECORDS SUMMARY | 2024-08-06 10:18 | XMS_ITS | Encounter Summary ---
Author Organization [place] [address] Care Team Providers Care Associate Material Handler Name Role Phone Unavailable Primary Care Provider [...]
--- OUTSIDE RECORDS SUMMARY | 2024-08-06 10:18 | XMS_ITS | Encounter Summary ---
Author Organization [place] [address] Care Team Providers Care Cosmetic Maker Name Role Phone Unavailable Primary Care Provider Unavailabl e Encounter Details Date Type Department Care Team (Late st Contact Info) Description 03/22/2002 12:11 PM EDT - 03/22/2002 3:30 PM EDT Hospital Encounter [facility] DEMI Carlin Billy A [address] [facility] [address] [place] [address] Social History Tobacco Use Types Packs/Day Years [...]
--- OUTSIDE RECORDS SUMMARY | 2024-08-06 10:18 | XMS_ITS | Encounter Summary ---
Author Organization [facility] [place] [address] Care Team Providers Care Windows Architect Name Role Phone Unavailable Primary Care Provider Unavailabl e Encounter Details Date Type Department Care Team (Late st Contact Info) Description 06/16/2001 6:06 AM EDT - 06/16/2001 11:59 PM EDT Hospital Encounter [facility] RADIOLOGY EDG Billy Carlin A [address] [place] [address] [address] [place] [id number] Social History Tobacco Use Types Packs/Day Years [...]
--- OUTSIDE RECORDS SUMMARY | 2024-08-06 10:18 | XMS_ITS | Encounter Summary ---
Author Organization [place] [address] Care Team Providers Care Music Engraver Name Role Phone Unavailable Primary Care Provider Unavailabl e Encounter Details Date Type Department Care Team (Late st Contact Info) Description 03/12/2002 11:33 AM EDT - 03/12/2002 3:45 PM EDT Hospital Encounter [facility] MAJOR ER EDG Katia Bean MD [address] [place] [phone] Social History Tobacco Use Types Packs/Day [...]
--- OUTSIDE RECORDS SUMMARY | 2024-08-06 10:18 | XMS_ITS | Encounter Summary ---
Author Organization [facility] [place] [address] Care Team Providers Care Foreign Languages Department Chair Name Role Phone Unavailable Primary Care Provider Unavailabl e Encounter Details Date Type Department Care Team (Late st Contact Info) Description 05/10/2001 10:40 AM EDT - 05/10/2001 11:59 PM EDT Hospital Encounter [facility] RADIOLOGY ED[facility] Billy Carlin A [address] [place] [address] [address] [place] [phone] Social History Tobacco Use Types Packs/Day Years [...]
--- OUTSIDE RECORDS SUMMARY | 2024-08-06 10:18 | XMS_ITS | Encounter Summary ---
Author Organization [place] [address] Care Team Providers Care Drums Teacher Name Role Phone Unavailable Primary Care Provider [...]
--- OUTSIDE RECORDS SUMMARY | 2024-08-06 10:18 | XMS_ITS | Encounter Summary ---
[facility] Address [address] [place] [address] Care Team Providers Care Rolling Mill Operator Name Role Phone Dillan Jain MD Primary Care Provider [phone] Reason for Visit * Reason Comments Lupus Follow up Osteoarthritis Follow up Encounter Details Date Type Department Care Team (Latest Contact Info) Description 06/05/2024 2:45 PM EDT Office Visit [facility] R[facility]OLOGY [address] [facility] [address] [place] [phone] DO [address] [facility] [address] [place] [address] Systemic lupus erythematosus, unspecified SLE [...] Care Everywhere. * Systemic Lupus Erythematosus Adult (Sammarinese) documented in this encounter Progress Notes * Derrick Way, - 06/05/2024 2:45 PM EDTAssociated Problem(s): SLE (systemic lupus erythematosus) * 2008: VALENTINA 1:80 speckled * 10/25/22: VALENTINA positive, DS DNA 26 (0-4), Longo negative, SSA and SSB Normal, REPAIR DEPARTMENT MANAGER normal, chromatin normal, Erin 1 normal, Centromere normal, SCL 70 normal, Ribosomal P Normal, ESR 46 (0-30) * Medications/treatments/interventions tried include: Tylenol, Advil, meloxicam, she saw Jayson Pack MD (Motion Picture Film Examiner) in 2008, She has seen an orthopaedic [...] (0-4), Longo negative, SSA and SSB Normal, REPAIR DEPARTMENT MANAGER normal, chromatin normal, Erin 1 normal, Centromere normal, SCL 70 normal, Ribosomal P Normal, ESR 46 (0-30) * Medications/treatments/interventions tried include: Tylenol, Advil, meloxicam, she saw Jayson Pack MD (Motion Picture Film Examiner) in 2008, She has seen an orthopaedic [...] 6 months (around 12/04/2024). Derrick Way DO [facility] [place] documented in this encounter Plan of Treatment Upcoming Encounters Date Type Department Care Team (Late st Contact Info) Description 12/04/2024 2:45 PM EDT Office Visit [facility] RHEUMATOLOGY [address] [facility] [address] [place] [phone] [address] DO [address] [facility] [address] [place] [address] Scheduled Orders Name Type Priority Associated Diagnoses [...] joints documented in this encounter Care Teams Rolling Mill Operator Relationship Specialty Start Date End Date Dillan Jain MD [address] [facility] [address] [facility] [address] [place] [address] PCP - General Family Medicine 05/28/24 documented as of this encounter
--- OUTSIDE RECORDS SUMMARY | 2024-08-06 10:18 | XMS_ITS | Encounter Summary ---
Author Organization [place] [address] Care Team Providers Care Branch Service Leader Name Role Phone Unavailable Primary Care Provider Unavailabl e Encounter Details Date Type Department Care Team (Late st Contact Info) Description 05/06/2001 10:35 AM EDT - 05/06/2001 11:59 PM EDT Hospital Encounter [facility] RADIOLOGY EDG Boris Baer MD [address] [place] [address] Social History Tobacco Use Types Packs/Day [...]
--- OUTSIDE RECORDS SUMMARY | 2024-08-06 10:18 | XMS_ITS | Clinical Summary ---
[facility] Address [address] [place] [address] Care Team Providers Care Offset Press Assistant Name Role Phone Dillan Jain MD Primary Care Provider [phone] Allergies Active Allergy Reactions Criticality Noted Date [...] (0-4), Longo negative, SSA and SSB Normal, CANDY DECORATOR normal, chromatin normal, Erin 1 normal, Centromere normal, SCL 70 normal, Ribosomal P Normal, ESR 46 (0-30) * Medications/treatments/interventions tried include: Tylenol, Advil, meloxicam, she saw Jayson Pack MD (Maintenance Repairman) in 2008, She has seen an orthopaedic surgeon, she has done physical therapy, she had hip replacement surgery, she had arthroscopic knee surgery, Percocet (Allergic/intolerant), Aleve (allergic/Intolerant), allopurinol, gabapentin, shoulder injection, she saw a painter touch up, she had back injections, Plaquenil, Tramadol, knee [...] Description 06/05/2024 2:45 PM EDT Office Visit [facility] RHEUMATOLOGY [address] [facility] [address] [place] [address] DO Systemic lupus [...] Description 12/04/2024 2:45 PM EDT Office Visit [facility] RHEUMATOLOGY [address] [address] DO [address] [facility] [address] [place] [address] Health Maintenance Due Date Last Done Comments BMI FOLLOWUP 1953 COLOGUARD 1953 COLON CANCER SCREENING 5 YEA R SIGMOIDOSCOPY 1953 COLONOSCOPY [address] CANCER SCREENING 1953 CT COLONOGRAPHY 1953 DXA SCAN 1953 FECAL OCCULT BLOOD TEST 1953 FIT Testing (1 year) 1953 LIPID PANEL 1953 Pneumococcal Vaccine 65+ (1 of 1 - PCV) 2018 INFLUENZA VACCINE 02/19/2024 08/23/2021, , 04/29/2019, Additional history exists COVID-19 [...] Modality Body, Chest N/A Radiographic Manisha ging [facility] Provider IMG DIAGNOSTIC IMAGING OR DERABLES Final Result * CBC & Differential (05/21/2024 2:54 PM EDT) Blood [facility] Provider LAB BLOOD ORDERABLES Flor l Result * Urine Culture - Urine, (05/21/2024 2:53 PM EDT) Urine [facility] Provider MICROBIOLOGY - GENERAL OR DERABLES Final Result from Last 3 Months Insurance MEDICARE A & B [facility] [employer] Care Teams Offset Press Assistant Relationship Specialty Start Date End Date Dillan Jain MD [address] [facility] [address] [place] [address] PCP - General Family Medicine 05/28/24
--- OUTSIDE RECORDS SUMMARY | 2024-08-06 10:18 | XMS_ITS | Encounter Summary ---
Author [place] [address] Care Team Providers Care Restaurant Hospitality Manager Name Role Phone Unavailable Primary Care Provider [...]
--- OUTSIDE RECORDS SUMMARY | 2024-08-06 10:18 | XMS_ITS | Encounter Summary ---
[facility] [address] [place] [address] Care Team Providers Care Sugarcane Planter Name Role Phone Dillan Jain MD Primary Care Provider [phone] Encounter Details Date Type Department Care Team [...] Description 12/04/2024 2:45 PM EDT Office [facility] [address] [facility] [address] [place] [phone] DO [address] [facility] [address] [place] [address] documented as of this encounter Visit Diagnoses Not on filedocumented in this encounter Care Teams Sugarcane Planter Relationship Specialty Start Date End Date Dillan Jain MD [address] [facility] [address] [facility] [address] [place] [address] PCP - General Family Medicine 05/28/24 documented as of this encounter
--- OUTSIDE RECORDS SUMMARY | 2024-08-06 10:18 | XMS_ITS | Encounter Summary ---
Author Organization [place] [address] Care Team Providers Care Asphalt Paver Operator Name Role Phone Unavailable Primary Care Provider Unavailabl e Encounter Details Date Type Department Care Team (Late st Contact Info) Description 03/19/2002 11:14 AM EDT - 03/19/2002 11:59 PM EDT Hospital Encounter [facility] RADIOLOGY EDG Billy Carlin A [address] [place] [address] [address] [place] [phone] Social History Tobacco Use Types Packs/Day Years [...]
--- OUTSIDE RECORDS SUMMARY | 2024-08-06 10:18 | XMS_ITS | Encounter Summary ---
Author Organization [place] [address] Care Team Providers Care Book Illustrator Name Role Phone Unavailable Primary Care Provider [...]
== END 2024-08-01 23:59 | disposition home or self-care (01) ==
PROVIDERS: PCP Family Medicine; Visit Provider Nurse Practitioner Family
DX: R60.0 Localized edema (principal); M79.604 Pain in right leg
CPT/HCPCS: 93971

== ENCOUNTER 2024-08-07 08:44 | Outpatient (POV) | payer MEDICARE, OTHER, SELFPAY ==
[2024-08-07 09:01] VITALS: BP 119/67; PULSE 73; RESP 14; O2SAT 98; BMI 41.5
--- NOTE | 2024-08-07 09:53 | EXP.PAIN.SOA ---
[facility] Disclaimer: The information contained in this section may have been updated after the patient was seen, as this information can be updated by other users. Medical History Lupus 03/28/2023, new diagnosis. [facility] in [place], currently on Plaquenil. Kidney stone HTN (hypertension), benign GERD (gastroesophageal reflux disease) Cancer Atrial fibrillation Asthma Arrhythmia Coronary artery disease Dyspnea Hyperlipidemia Surgical History H/O tubal ligation Hx of colonoscopy History of cholecystectomy History of total right hip replacement H/O arthroscopy of left knee Family History Other Cancer Hyperlipidemia Hypertension Social History Smoking Status: Never smoker second hand exposure: No alcohol intake: never substance use type: denies use current occupational status: other Travel in the last 8 weeks: None household members: other housing: house current occupational exposures/hazards: No caffeine: Yes PM Subjective & Objective Subjective Subjective:: Patient is a pleasant 69-year-old female who presents today for follow-up of lumbar epidural steroid injection L3-L4 with epidurogram on 07/05/2024. Patient rates her pain today a 4 out of 10. She denies any new falls or injuries. She does state that she did not have any additional improvement following this injection. She does state that she continues to have chronic low back pain however it does seem much higher than where the injection was done patient does also make mention that she has hip pain and that she will experience worsening pain with walking or standing and describes it as an aching, throbbing sensation patient states most of her pain just stays there at her low back and that she has some knee issues and knows that she needs it replaced so that does seem to cause some radicular symptoms however she is unsure if it is actually coming from her low back. Patient did have a right hip replaced about 15 years ago. Patient has continued conservative treatment including oral medications such as Tylenol arthritis, gabapentin and tramadol with minimal relief. Patient has also continued at home exercising and stretching for longer than 12 weeks. Her [place] has been reviewed and is appropriate. Review of Systems: General: No recent weight changes, no fever, no sleep disturbances Respiratory: No cough, no shortness of air, no recurring pulmonary infections Cardiovascular/peripheral vascular: No chest pain, no palpitations, no edema, no shortness of breath Gastrointestinal: No new onset incontinence, normal bowel movements reported Genitourinary: No new onset incontinence Musculoskeletal: Low back pain, bilateral hip pain Psychiatric: [Normal mood/affect] Neurological: [Denies weakness in extremities], [denies balance issues] Pain at rest (0-10 scale): 4 Objective Objective:: Physical Exam: General: Alert and oriented x3, no acute distress, pleasant and cooperative Lungs: Respirations even and unlabored, symmetrical chest expansion Eyes: PERRL Musculoskeletal: Flexion and extension of lumbar [spine] somewhat guarded secondary to pain, [antalgic gait noted] point tenderness along bilateral SIs with positive bilateral Kendra's, Josefina's, Gaenslen's, compression and distraction exam Neurological: Speech clear, no gross sensory deficit Has patient had previous pain injection?: Yes Percent improvement in pain since last injection: Minimal Conservative treatment options previously tried: Home exercise plan Length of treatment: Longer than 12 weeks Meds Home Medications and Allergies Home Medications ?Medication ?Instructions ?Recorded ?Confirmed ?Type montelukast 10 mg tablet 10 mg PO QHS PRN allergies 30 days 05/08/18 08/07/24 History #30 tabs aspirin 81 mg tablet,delayed 81 mg PO DAILY thinner 05/28/19 08/07/24 History release (Aspir-Low) esomeprazole magnesium 20 mg 20 mg PO DAILY 12/16/20 08/07/24 History capsule,delayed release (Nexium) allopurinol 100 mg tablet 100 mg PO DAILY 01/27/21 08/07/24 History primidone 50 mg tablet 50 mg PO ONCE 03/10/21 08/07/24 History potassium chloride 10 mEq 10 meq PO DAILY 03/29/22 08/07/24 History tablet,extended release (Klor-Con) spironolactone 25 mg tablet See Rx Instructions .Route 01/02/23 08/07/24 Rx .COMPLEX #90 tabs hydroxychloroquine 200 mg tablet 200 mg PO DAILY 03/28/23 08/07/24 History triamterene 37.5 1 tab PO DAILY 04/03/23 08/07/24 History mg-hydrochlorothiazide 25 mg tablet losartan 50 mg tablet See Rx Instructions .Route 05/22/23 08/07/24 Rx .COMPLEX #90 tabs gabapentin 300 mg capsule 300 mg PO BID 11/15/23 08/07/24 History tramadol 50 mg tablet 50 mg PO TID PRN . 11/15/23 08/07/24 History metoprolol succinate 50 mg See Rx Instructions .Route 12/25/23 08/07/24 Rx tablet,extended release 24 hr .COMPLEX #90 tabs terbinafine HCl 250 mg tablet 250 mg PO DAILY 03/27/24 08/07/24 History atorvastatin 40 mg tablet See Rx Instructions .Route 06/20/24 08/07/24 Rx .COMPLEX #90 tabs New Prescriptions to Start Prescriptions: Allergies Allergy/AdvReac Type Severity Reaction Status Date / Time codeine Allergy Intermediate Nausea Verified 05/31/24 14:37 naproxen (From Aleve) Allergy Other Verified 05/31/24 14:37 Assessment and Plan *Assessment and plan (1) Bilateral sacroiliitis: Status: Acute Category: Medical Code(s): M46.1 - Sacroiliitis, not elsewhere classified (2) Degenerative lumbar spinal stenosis: Status: Acute Category: Medical Code(s): M48.061 - Spinal stenosis, lumbar region without neurogenic claudication (3) Spondylolisthesis, lumbar region: Status: Chronic Category: Medical Code(s): M43.16 - Spondylolisthesis, lumbar region Plan I did discuss with the patient regarding her epidural and epidurogram. We did reevaluate the minimally invasive bar decompression as well as SI injections. Patient did have limited range of motion of her lumbar spine during today's visit with point tenderness along her bilateral SIs and a positive bilateral Kendra's, Josefina's, Gaenslen's, compression and distraction exam. I reviewed with the patient that she may benefit from SI injections as well as the possible lumbar decompression however we did discuss since she did not notice any improvement whatsoever and that her pain is higher than where the epidural injection was done that we may need to look at other options as well. I will order the patient a compounded cream and send in a prescription of muscle relaxer with a 2-week supply. Patient will return to clinic in 2 weeks for reevaluation of symptoms and plan of care. Patient has been instructed to contact the clinic with any concerns before the next appointment. Dr. Reddy has reviewed this note and agrees with this plan of care. This note was dictated using voice recognition software and make contain errors or omissions. All injections are used with Lidocaine, Bupivacaine and Depo Medrol. Occasionally urine drug screen is needed to verify patient's compliance with our office pain contract. This is ordered based off specific treatments related to chronic pain with the potential to abuse certain medications.
== END 2024-08-07 23:59 | disposition home or self-care (01) ==
PROVIDERS: PCP Family Medicine; Visit Provider Nurse Practitioner Family
DX: M46.1 Sacroiliitis, not elsewhere classified (principal); M48.061 Spinal stenosis, lumbar region without neurogenic claudication; M43.16 Spondylolisthesis, lumbar region; Z96.641 Presence of right artificial hip joint
CPT/HCPCS: 99212; G0463

== ENCOUNTER 2024-09-16 14:54 | Outpatient (POV) | payer MEDICARE, OTHER, SELFPAY ==
[2024-09-16 15:16] VITALS: BP 133/72; PULSE 74; RESP 14; O2SAT 95; BMI 41.5
--- NOTE | 2024-09-16 16:10 | A.OFFVIS_ITS ---
[facility] Disclaimer: The information contained in this section may have been updated after the patient was seen, as this information can be updated by other users. Medical History Lupus 03/28/2023, new diagnosis. [facility] with [facility] in [place], currently on Plaquenil. Kidney stone HTN (hypertension), benign GERD (gastroesophageal reflux disease) Cancer Atrial fibrillation Asthma Arrhythmia Coronary artery disease Dyspnea Hyperlipidemia Surgical History H/O tubal ligation Hx of colonoscopy History of cholecystectomy History of total right hip replacement H/O arthroscopy of left knee Family History Other Cancer Hyperlipidemia Hypertension Social History Smoking Status: Never smoker second hand exposure: No alcohol intake: never substance use type: denies use current occupational status: other Travel in the last 8 weeks: None household members: other housing: house current occupational exposures/hazards: No caffeine: Yes PM Subjective & Objective Subjective Subjective:: Patient is a pleasant 69-year-old female who presents today for MRI follow-up and worsening pain. Today she rates her pain an 8 out of 10. She denies any new falls or injuries. Patient does states she continues to have chronic pain there at her low back and hips. Patient does have a history of right hip replacement and does state that she knows that she is going to have to need a left hip replacement at some point. Patient does state the pain is constant and interferes with her ability perform activities of daily living such as cooking and cleaning. Patient states that the injections have only done very minimal improvement and are very painful when she has had them done. Patient is asking if there is something more available she would provide better improvement on a day-to-day basis. She is prescribed compounded cream that does help some. Patient was given a prescription of baclofen however felt like this really did not seem to make much difference. Her [place] has been reviewed and is appropriate. Review of Systems: General: No recent weight changes, no fever, no sleep disturbances Respiratory: No cough, no shortness of air, no recurring pulmonary infections Cardiovascular/peripheral vascular: No chest pain, no palpitations, no edema, no shortness of breath Gastrointestinal: No new onset incontinence, normal bowel movements reported Genitourinary: No new onset incontinence Musculoskeletal: Chronic low back pain Psychiatric: [Normal mood/affect] Neurological: [Denies weakness in extremities], [denies balance issues] Pain at rest (0-10 scale): 8 Objective Objective:: Physical Exam: General: Alert and oriented x3, no acute distress, pleasant and cooperative Lungs: Respirations even and unlabored, symmetrical chest expansion Eyes: PERRL Musculoskeletal: Flexion and extension of lumbar [spine] somewhat guarded secondary to pain, [antalgic gait noted] Neurological: Speech clear, no gross sensory deficit Has patient had previous pain injection?: No Conservative treatment options previously tried: Home exercise plan Length of treatment: Longer than 12 weeks Meds Home Medications and Allergies Home Medications ?Medication ?Instructions ?Recorded ?Confirmed ?Type montelukast 10 mg tablet 10 mg PO QHS PRN allergies 30 days 05/08/18 09/16/24 History #30 tabs aspirin 81 mg tablet,delayed 81 mg PO DAILY thinner 05/28/19 09/16/24 History release (Aspir-Low) esomeprazole magnesium 20 mg 20 mg PO DAILY 12/16/20 09/16/24 History capsule,delayed release (Nexium) allopurinol 100 mg tablet 100 mg PO DAILY 01/27/21 09/16/24 History primidone 50 mg tablet 50 mg PO ONCE 03/10/21 09/16/24 History potassium chloride 10 mEq 10 meq PO DAILY 03/29/22 09/16/24 History tablet,extended release (Klor-Con) spironolactone 25 mg tablet See Rx Instructions .Route 01/02/23 09/16/24 Rx .COMPLEX #90 tabs hydroxychloroquine 200 mg tablet 200 mg PO DAILY 03/28/23 09/16/24 History triamterene 37.5 1 tab PO DAILY 04/03/23 09/16/24 History mg-hydrochlorothiazide 25 mg tablet gabapentin 300 mg capsule 300 mg PO BID 11/15/23 09/16/24 History tramadol 50 mg tablet 50 mg PO TID PRN . 11/15/23 09/16/24 History metoprolol succinate 50 mg See Rx Instructions .Route 12/25/23 09/16/24 Rx tablet,extended release 24 hr .COMPLEX #90 tabs terbinafine HCl 250 mg tablet 250 mg PO DAILY 03/27/24 09/16/24 History atorvastatin 40 mg tablet See Rx Instructions .Route 06/20/24 09/16/24 Rx .COMPLEX #90 tabs baclofen 5 mg tablet 5 mg PO TID #42 tabs 08/07/24 09/16/24 Rx losartan 50 mg tablet See Rx Instructions .Route 08/19/24 09/16/24 Rx .COMPLEX #90 tabs New Prescriptions to Start Prescriptions: Allergies Allergy/AdvReac Type Severity Reaction Status Date / Time codeine Allergy Intermediate Nausea Verified 05/31/24 14:37 naproxen (From Aleve) Allergy Other Verified 05/31/24 14:37 Assessment and Plan *Assessment and plan (1) Bilateral sacroiliitis: Status: Acute Category: Medical Code(s): M46.1 - Sacroiliitis, not elsewhere classified (2) Degenerative lumbar spinal stenosis: Status: Acute Category: Medical Code(s): M48.061 - Spinal stenosis, lumbar region without neurogenic claudication Plan I did review over with the patient regarding her MRI findings. Patient continues to have significant pain throughout her back. I did discuss with the patient that her last MRI did not show any ligamentum flavum hypertrophy and I do not think that the minimally invasive lumbar decompression would be as beneficial. Patient was counseled with her chronic back pain that she may be a beneficial candidate of a intrathecal pain pump trial. Risk and benefits were discussed with the patient as well as educational handouts given. Patient would like to proceed forward with this plan of care. Patient will be ordered a psychological evaluation and if she is deemed an appropriate candidate we will proceed forward with the pain pump trial in the future. Patient agrees with this plan of care. I will send in a new prescription of methocarbamol 750 mg twice daily and provide a 2-week supply. Patient will return to clinic in 2 weeks for reevaluation of symptoms and plan of care. Patient has been instructed to contact the clinic with any concerns before the next appointment. Dr. Reddy has reviewed this note and agrees with this plan of care. This note was dictated using voice recognition software and make contain errors or omissions. All injections are used with Lidocaine, Bupivacaine and Depo Medrol. Occasionally urine drug screen is needed to verify patient's compliance with our office pain contract. This is ordered based off specific treatments related to chronic pain with the potential to abuse certain medications.
== END 2024-09-16 23:59 | disposition home or self-care (01) ==
PROVIDERS: PCP Family Medicine; Visit Provider Nurse Practitioner Family
DX: M46.1 Sacroiliitis, not elsewhere classified (principal); M48.061 Spinal stenosis, lumbar region without neurogenic claudication; Z96.641 Presence of right artificial hip joint; Z73.89 Other problems related to life management difficulty
CPT/HCPCS: 99212; G0463

== ENCOUNTER 2024-10-17 14:26 | Outpatient (POV) | payer MEDICARE, SELFPAY ==
[2024-10-17 14:52] VITALS: BP 133/70; PULSE 74; RESP 14; O2SAT 97; BMI 41.5
--- NOTE | 2024-10-17 14:54 | A.OFFVIS_ITS ---
[facility] Disclaimer: The information contained in this section may have been updated after the patient was seen, as this information can be updated by other users. Medical History Lupus 03/28/2023, new diagnosis. [facility] with [facility] in [place], currently on Plaquenil. Kidney stone HTN (hypertension), benign GERD (gastroesophageal reflux disease) Cancer Atrial fibrillation Asthma Arrhythmia Coronary artery disease Dyspnea Hyperlipidemia Surgical History H/O tubal ligation Hx of colonoscopy History of cholecystectomy History of total right hip replacement H/O arthroscopy of left knee Family History Other Cancer Hyperlipidemia Hypertension Social History Smoking Status: Never smoker second hand exposure: No alcohol intake: never substance use type: denies use current occupational status: other Travel in the last 8 weeks: None household members: other housing: house current occupational exposures/hazards: No caffeine: Yes Have you lived/traveled outside US in past 30 days?: No Contact w/someone who lives/traveled outside US past 30 days?: No Exposure to someone with infectious disease in past 14 days?: No Do you have a fever (greater than 100.4 F or 38 C)?: No Have you tested positive for COVID-19: No Exposed to someone with COVID-19 in past 14 days?: No Do you have a sore throat?: No Do you have a cough?: No Do you have any weakness?: No Do you have any diarrhea?: No Are you experiencing any unusual bleeding?: No Do you have any muscle aches/pain?: No Do you have any abdominal pain?: No Are you experiencing loss of taste or smell?: No PM Subjective & Objective Subjective Subjective:: Sebas is a pleasant 69-year-old female who presents today for follow-up. She rates her pain today as 6 out of 10. She denies any new trauma or injury. Patient does state that she still has her chronic back pain as well as her left knee pain. Patient at her last visit was prescribed on 750 mg twice a day however she states that she really did not notice significant changes with this and discontinued it. Patient does also state that she stopped taking her tramadol and gabapentin as well and did not really notice any change in her pain level from that as well. Patient just felt like she takes enough medications and does not wanting any more than she has taken. Patient does state that she has been having a little bit more pain behind her left knee that does send occasional shooting pains down into her lower leg. Her [place] has been reviewed and is appropriate. Review of Systems: General: No recent weight changes, no fever, no sleep disturbances Respiratory: No cough, no shortness of air, no recurring pulmonary infections Cardiovascular/peripheral vascular: No chest pain, no palpitations, no edema, no shortness of breath Gastrointestinal: No new onset incontinence, normal bowel movements reported Genitourinary: No new onset incontinence Musculoskeletal: Low back pain, left knee pain Psychiatric: [Normal mood/affect] Neurological: [Denies weakness in extremities], [denies balance issues] Pain at rest (0-10 scale): 6 Objective Objective:: Physical Exam: General: Alert and oriented x3, no acute distress, pleasant and cooperative Lungs: Respirations even and unlabored, symmetrical chest expansion Eyes: PERRL Musculoskeletal: Flexion and extension of lumbar [spine] somewhat guarded secondary to pain, [antalgic gait noted] Neurological: Speech clear, no gross sensory deficit Has patient had previous pain injection?: No Conservative treatment options previously tried: Home exercise plan Length of treatment: Longer than 12 weeks Meds Home Medications and Allergies Home Medications ?Medication ?Instructions ?Recorded ?Confirmed ?Type montelukast 10 mg tablet 10 mg PO QHS PRN allergies 30 days 05/08/18 09/16/24 History #30 tabs aspirin 81 mg tablet,delayed 81 mg PO DAILY thinner 05/28/19 09/16/24 History release (Aspir-Low) esomeprazole magnesium 20 mg 20 mg PO DAILY 12/16/20 09/16/24 History capsule,delayed release (Nexium) allopurinol 100 mg tablet 100 mg PO DAILY 01/27/21 09/16/24 History primidone 50 mg tablet 50 mg PO ONCE 03/10/21 09/16/24 History potassium chloride 10 mEq 10 meq PO DAILY 03/29/22 09/16/24 History tablet,extended release (Klor-Con) spironolactone 25 mg tablet See Rx Instructions .Route 01/02/23 09/16/24 Rx .COMPLEX #90 tabs hydroxychloroquine 200 mg tablet 200 mg PO DAILY 03/28/23 09/16/24 History triamterene 37.5 1 tab PO DAILY 04/03/23 09/16/24 History mg-hydrochlorothiazide 25 mg tablet gabapentin 300 mg capsule 300 mg PO BID 11/15/23 09/16/24 History tramadol 50 mg tablet 50 mg PO TID PRN . 11/15/23 09/16/24 History metoprolol succinate 50 mg See Rx Instructions .Route 12/25/23 09/16/24 Rx tablet,extended release 24 hr .COMPLEX #90 tabs terbinafine HCl 250 mg tablet 250 mg PO DAILY 03/27/24 09/16/24 History atorvastatin 40 mg tablet See Rx Instructions .Route 06/20/24 09/16/24 Rx .COMPLEX #90 tabs baclofen 5 mg tablet 5 mg PO TID #42 tabs 08/07/24 09/16/24 Rx losartan 50 mg tablet See Rx Instructions .Route 08/19/24 09/16/24 Rx .COMPLEX #90 tabs methocarbamol 750 mg tablet 750 mg PO BID #28 tabs 09/16/24 Rx New Prescriptions to Start Prescriptions: Allergies Allergy/AdvReac Type Severity Reaction Status Date / Time codeine Allergy Intermediate Nausea Verified 05/31/24 14:37 naproxen (From Aleve) Allergy Other Verified 05/31/24 14:37 Assessment and Plan *Assessment and plan (1) Left knee pain: Status: Acute Category: Medical Code(s): M25.562 - Pain in left knee (2) Lumbar radiculopathy: Status: Chronic Category: Medical Code(s): M54.16 - Radiculopathy, lumbar region (3) Degenerative joint disease (DJD) of lumbar spine: Status: Chronic Qualifiers: Spinal osteoarthritis complication: other spinal osteoarthritis Qualified Code(s): M47.896 - Other spondylosis, lumbar region Category: Medical Code(s): M47.816 - Spondylosis without myelopathy or radiculopathy, lumbar region Plan I did discuss with the patient in future we can always see about updated imaging of her left knee and it does sound like it could 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 Patient does state that she did know that she had this in the past. I did also review over the possibility that we can always do intra-articular knee injections. Patient was told that she needs a knee replacement however due to her age she really wants to try and avoid this. We will follow-up in future. Patient was counseled to call us for her next appointment and she agrees with this plan of care. Patient has been instructed to contact the clinic with any concerns before the next appointment. Dr. Reddy has reviewed this note and agrees with this plan of care. This note was dictated using voice recognition software and make contain errors or omissions. All injections are used with Lidocaine, Bupivacaine and Depo Medrol. Occasionally urine drug screen is needed to verify patient's compliance with our office pain contract. This is ordered based off specific treatments related to chronic pain with the potential to abuse certain medications.
== END 2024-10-17 23:59 | disposition home or self-care (01) ==
LOC: SC.PAIN 14:28
PROVIDERS: PCP Family Medicine; Visit Provider Nurse Practitioner Family
DX: M25.562 Pain in left knee (principal); M47.26 Other spondylosis with radiculopathy, lumbar region
CPT/HCPCS: 99212; G0463

== ENCOUNTER 2024-10-22 09:53 | Outpatient (CLI) | payer MEDICARE, SELFPAY | END 2024-10-22 23:59 | disposition home or self-care (01) | LOC: LAB.DROPOF 10-23 09:54 | PROVIDERS: PCP Nurse Practitioner; Visit Provider Nurse Practitioner | DX: B35.1 Tinea unguium (principal) | CPT/HCPCS: 87102; 87206; 87220; 88304; 88312 ==

== ENCOUNTER 2024-12-04 16:27 | Outpatient (CLI) | payer MEDICARE, SELFPAY ==
--- OUTSIDE RECORDS SUMMARY | 2024-12-04 16:30 | XMS_ITS | Data Portability ---
Author Organization [facility] ELIESER Pickett BEATRICE CLOSED Address [address] [place] [address] Care Team Providers Care Advertising Copywriter Name Role Phone ABDI GUTIÉRREZ Primary Care Provider ABDI GUTIÉRREZ Referring Provider [phone] Assessment Encounter Date Assessment Date Assessment LastModified [...] not done any recent physical therapy or cardiac care nurse. She did have an epidural with Dr. [...] is satisfied with this plan of care. [email or web address] Not available 02/05/2024 16:45:21 05/06/2024 05/06/2024 Assessment: Sanjana Pierson is a 69-year-old presenting to the clinic for evaluation of low back pain x 5 years. Patient presents with disc containing lumbar MRI completed on 02/20/2024 through [facility] along with complete lumbar xrays completed through [facility] on 02/05/2024. Patient notes low back pain [...] findings. Lumbar MRI completed on 02/20/2024 through [facility] and lumbar x-rays completed through [facility] on 02/05/2024. Cystogram stenosis is appreciated to [...] l spine , 4 or more view [address] [address] Jacobo johnson Name: JAREK johnson : [birth year]51 [...] izatio n on the right. There is powerhouse oiler ior listhe sis of L2 on L3 which measur es 5 mm with flexio n and extens ion. There is powerhouse oiler ior listhe sis of L3 on L4 [...] Audelia cheung MD on 024 4:[address] Radiology [facility] [address] [place] [address], [address], 02/08/2024 17:18:09 03/19/20 24 02/20/2024 MRI, lumba r spine , w/o contr ast No observ ation record ed. [email or web address] (Med Record) [address], [place], [address], 04/29/2024 13:40:28 05/07/20 24 02/20/2024 MRI, lumba r spine , w/o contr ast No observ ation record ed. BARCODE Not Available 2023 14:00:13 Result Notes None recorded. Procedures Surgical History None recorded. Imaging Results Imaging Date Name Status LastModified by Organiz ation Details LastModified Time 02/05/2024 XR, lumbosacral spine, 4 or more view completed [address] Radiology [facility] [address] [place], [address], 02/08/2024 17:18:09 02/20/2024 MRI, lumbar spine, w/o contrast completed [email or web address] (Med Record) [address], [place], [address], 04/29/2024 13:40:28 02/20/2024 MRI, lumbar spine, w/o contrast completed BARCODE Information not available 05/07/2024 14:00:13 Procedure Notes None recorded. Medical Equipment None Reported. Allergies Allergen ID Allergen Name Allergen Category Reaction Reaction Severity Criticality Documentation Date Start Date Code Code System Note Provider Name and Address Organization Details Recorded Time 221088 codeine medicatio n Not available Not available Not available 05/06/2024 2670 RxNorm Tamra Domonique [facility] 4 09:35:48 [id number] naproxen medicatio n Not available Not available Not available 05/06/2024 7258 RxNorm Tamra Domonique [facility] 4 09:35:54 Medications Name Sig [...] Updated DateTime 05/06/2024 162.56 cm 43.8 kg/m2 613475.0 5 g 130 mm[Hg] 82 mm[Hg] Tamra Youssef [facility] 4 09:35:17 Social History None recorded. Functional Status None recorded. Mental Status None recorded. Family History Nothing Reported. Medical History No medical history recorded. Gynecological HistoryNo gynecological history recorded. Obstetrics History GPAL:G 0 P 0 0 0 0 Past Encounters Encounter ID Performer Location Encounter Start Date Encounter Closed Date Diagnosis/Indication Diagnosis SNOMED-CT Code Diagnosis ICD10 Code Diagnosis Note [id number] ASHLEIGH ROGERS APRN NEUROSURG [facility] [address] [place] [address] 02/05/2024 12:53:38 02/06/2024 05:14:28 Lumbar spondylosis 592874716 M47.896 [id number] LISA ECHEVERRIA PA-C [facility]OSUR[facility] [address] [place] [address] 05/06/2024 09:29:54 05/07/2024 04:26:58 Low back pain 938271004 M54.50 Health Concerns Section Related Observation LastModified by Organization Detai ls LastModified Time None Recorded Concern Status LastModified by Organization Details LastModified Time None Recorded Advance Directives Directive None Recorded Payers Encounter Date Sequence Insurance Name Policy Number Policy [place] Covered Member ID Lofton Member ID Guarantor Name 02/05/2024 1 [place] Sanjana Pierson [id number] Sanjana Pierson 02/05/2024 2 [employer]IG[employer] SUPPLEMENTAL - [employer]URANCE (MEDICARE SUPPLEMENT) Sanjana Pierson [id number] Sanjana Pierson 05/06/2024 1 [place] Sanjana Pierson [id number] Sanjana Pierson 05/06/2024 2 [employer] SUPPLEMENTAL - [employer]UR[employer] (MEDICARE SUPPLEMENT) Sanjana Pierson [id number] Sanjana Pierson Notes Date Note Type Note Provider Name and Address Organization Details Recorded Time 02/05/2024 text/html Ms. Pierson is a 69-year-old female who presents to the office for evaluation of her low back pain that has been present for 5 years with no specific cause. ASHLEIGH ROGERS, ARCHITECTURAL PROJECT MANAGER [address] [place], [address], [facility] 02/05/2024 16:45:45 05/06/2024 text/html Sanjana Pierson is a 69-year-old presenting to the clinic for evaluation of low back pain x 5 years. Patient presents with disc containing lumbar MRI completed on 02/20/2024 through [facility] along with complete lumbar xrays completed through [facility] on 02/05/2024. Patient notes low back pain [...] Dr. Hightower and I in clinic today. ILSA ECHEVERRIA PA-C [address] [place], [address], [facility] 05/06/2024 10:41:23 OBGyn Episode No OBEpisode recorded.
--- OUTSIDE RECORDS SUMMARY | 2024-12-04 16:30 | XMS_ITS ---
Author Organization Unknown Allergies, Adverse Reactions and Alerts Date IsAllergic OnsetDate Allergen Reaction Type Severity Kenny rgyCode Legacyallergictoid ReactionCode ReactionCodeSystemID 10/14 00:00 :00 1 Codeine sick to stomach 10/14 00:00 :00 1 Percocet 29571273377 10/14 00:00 :00 1 Aleve 23257337277 09/06 00:00 :00 1 Codeine sick to stomach 09/06 00:00 :00 1 Percocet 98901488277 09/06 00:00 :00 1 Aleve 46938729050 08/22 00:00 :00 1 Codeine sick to stomach 08/22 00:00 :00 1 Percocet 53764639440 08/22 00:00 :00 1 Aleve 74227467207 08/19 00:00 :00 1 Codeine sick to stomach 08/19 00:00 :00 1 Percocet 24616608634 08/19 00:00 :00 1 Aleve 51626377557 08/05 00:00 :00 1 Codeine sick to stomach 08/05 00:00 :00 1 Percocet 63889068327 08/05 00:00 :00 1 Aleve 32337975791 07/29 00:00 :00 1 Codeine sick to stomach 07/29 00:00 :00 1 Percocet 19119576178 07/29 00:00 :00 1 Aleve 03255398233 07/22 00:00 :00 1 Codeine sick to stomach 07/22 00:00 :00 1 Percocet 50199982651 07/22 00:00 :00 1 Aleve 98188978850 07/22 00:00 :00 1 Codeine sick to stomach 07/22 00:00 :00 1 Percocet 32310020928 07/22 00:00 :00 1 Aleve 62814372762 07/11 00:00 :00 1 Codeine sick to stomach 07/11 00:00 :00 1 Percocet 89789696883 07/11 00:00 :00 1 Aleve 61819335940 07/01 00:00 :00 1 Codeine sick to stomach 07/01 00:00 :00 1 Percocet 21449687157 07/01 00:00 :00 1 Aleve 97760116012 06/24 00:00 :00 1 Codeine sick to stomach 06/24 00:00 :00 1 Percocet 07799950835 06/24 00:00 :00 1 Aleve 04815145575 06/24 00:00 :00 1 Codeine sick to stomach 06/24 00:00 :00 1 Percocet 41241936566 06/24 00:00 :00 1 Aleve 64824749996 06/06 00:00 :00 1 Codeine sick to stomach 06/06 00:00 :00 1 Percocet 95113887832 06/06 00:00 :00 1 Aleve 87019206981 05/20 00:00 :00 1 Codeine sick to stomach 05/20 00:00 :00 1 Percocet 36286365366 05/20 00:00 :00 1 Aleve 30215372029 04/29 00:00 :00 1 Codeine sick to stomach 04/29 00:00 :00 1 Percocet 64111705157 04/29 00:00 :00 1 Aleve 93004276041 03/27 00:00 :00 1 Codeine sick to stomach 03/27 00:00 :00 1 Percocet 09375484929 03/27 00:00 :00 1 Aleve 90449178392 03/21 00:00 :00 1 Codeine sick to stomach 03/21 00:00 :00 1 Percocet 08775620334 03/21 00:00 :00 1 Aleve [id number] 02/18 00:00 :00 1 Codeine sick to stomach 02/18 00:00 :00 1 Percocet 15302222302 02/18 00:00 :00 1 Aleve 77663123756 02/18 00:00 :00 1 Codeine sick to stomach 02/18 00:00 :00 1 Percocet 94590848685 02/18 00:00 :00 1 Aleve 51709151726 01/21 00:00 :00 1 Codeine sick to stomach 01/21 00:00 :00 1 Percocet 98482492517 01/21 00:00 :00 1 Aleve 50194761584 01/21 00:00 :00 1 Codeine sick to stomach 01/21 00:00 :00 1 Percocet 56533486206 01/21 00:00 :00 1 Aleve 03048536075 12/24 00:00 :00 1 Codeine sick to stomach 12/24 00:00 :00 1 Percocet 39779730861 12/24 00:00 :00 1 Aleve 99878597904 12/24 00:00 :00 1 Codeine sick to stomach 12/24 00:00 :00 1 Percocet 41593406138 12/24 00:00 :00 1 Aleve [id number] 12/24 00:00 :00 1 Codeine sick to stomach 12/24 00:00 :00 1 Percocet 42734067054 12/24 00:00 :00 1 Aleve [id number] 12/21 00:00 :00 1 Codeine sick to stomach 12/21 00:00 :00 1 Percocet 14875176449 12/21 00:00 :00 1 Aleve 98777276898 11/26 00:00 :00 1 Codeine sick to stomach 11/26 00:00 :00 1 Lupe [id number] 11/26 00:00 :00 1 Marques [id number]
[2024-12-04 16:33] LABS: Microscopic, Urine URINE MICROSCOPIC (MICROSCOPIC)
[2024-12-04 17:13] LABS: Appearance,Urine CLOUDY (Clear); Bilirubin,Urine Negative (Negative); Blood, Urine Negative (Negative); Color,Urine YELLOW (Yellow); Glucose,Urine (UA) Negative (Negative); Ketones,Urine Negative (Negative); Leukocyte Esterase,Urine 2+ (Negative); Nitrate,Urine Negative (Negative); Protein,Urine Negative (Negative); Specific Gravity, Urine >= 1.030 (1.005-1.030); Urobilinogen,Urine 0.2 EU/dl (0.2)
[2024-12-04 17:39] LABS: Albumin Level 3.8 g/dl (3.5-5.0); Chloride 99 mmol/L (98-107); Potassium 4.6 mmoL/L (3.5-5.1); Sodium 136 mmol/L (136-145)
[2024-12-04 17:42] LABS: Alanine Aminotransferase 23 U/L (12-78); Albumin/Globulin Ratio 1.1 (1.1-1.8); Alkaline Phosphatase 138 U/L (38-126); Anion Gap 14.6 mEq/L (5-15); Aspartate Amino Transferase 29 U/L (14-36); Bilirubin,Total 0.4 mg/dl (0.2-1.3); Blood Urea Nitrogen 19 mg/dl (7-17); Carbon Dioxide 27 mmol/L (22.0-30.0); Creatine Kinase 137 U/L (30-135); Estimated Glomerular Filt Rate 55 ml/min (>60); GFR (African American) 66 ML/MIN (>60); Globulin 3.6 g/dL (1.3-3.2); Total Protein,Serum 7.4 g/dl (6.3-8.2)
[2024-12-04 17:43] LABS: Calcium 9.1 mg/dl (8.4-10.2); Glucose 89 mg/dl (74-100)
[2024-12-04 17:49] LABS: Bacteria,Urine 1+ /lpf; RBC,Urine Occasional #/hpf (0-3); Squamous Epithelial Cell,Urine 20-50 #/hpf (0-5); WBC,Urine Occasional #/hpf (0-3)
[2024-12-06 08:29] LABS: Complement C3 173 mg/dL (82-167)
[2024-12-06 16:20] LABS: dsDNA AB Crithidia Negative (Negative)
== END 2024-12-04 23:59 | disposition home or self-care (01) ==
LOC: LAB 16:28
PROVIDERS: PCP Family Medicine; Visit Provider Internal Medicine
DX: M15.0 Primary generalized (osteo)arthritis (principal); M32.9 Systemic lupus erythematosus, unspecified; Z79.899 Other long term (current) drug therapy
CPT/HCPCS: 36415; 80053; 81001; 82550; 86161; 86225; 87086

== ENCOUNTER 2024-12-07 15:48 | Emergency (ER) | payer MEDICARE, SELFPAY ==
[2024-12-07] VITALS (11 sets, daily range): BP systolic 115–137; BP diastolic 55–71; PULSE 63–76; RESP 11–22; TEMP 36.6–36.7; O2SAT 90–95; BMI 41.5
--- NOTE | 2024-12-07 15:48 | ECG_ITS ---
APPROVED REPORT Exam: Resting ECG HR:66 bpm ECG Measurements Heart Rate 66 AXES MN 173 P 75 QRSd 93 QRS -42 QT 435 T 58 QTc 448 Conclusion SINUS RHYTHM LEFT AXIS DEVIATION [QRS AXIS < -30] LOW QRS VOLTAGE [QRS DEFLECTION < 0.5/1.0 mV IN LIMB/CHEST LEADS] ABNORMAL ECG Electronically signed by : SIS BREWSTER, 12/07/2024 16:23:20
[2024-12-07 15:55] LABS: POC Glucose,Bedside 96 (70-110)
--- NOTE | 2024-12-07 15:56 | PC.NURSE ---
Dr. Martin at bedside attempting US guided IV. Patient endorses a history of difficult peripheral access.
--- OUTSIDE RECORDS SUMMARY | 2024-12-07 15:58 | XMS_ITS | Data Portability ---
Author Organization [facility] ELIESER Pickett [place] CLOSED Address [address] [place] [address] Care Team Providers Care Assistant Store Manager Operations Name Role Phone ABDI GUTIÉRREZ Primary Care [...] not done any recent physical therapy or early breastfeeding care specialist. She did have an epidural with Dr. [...] is satisfied with this plan of care. [email or web address] Not available 02/05/2024 16:45:21 05/06/2024 05/06/2024 Assessment: Sanjana Pierson is a 69-year-old presenting to the clinic for evaluation of low back pain x 5 years. Patient presents with disc containing lumbar MRI completed on 02/20/2024 through [facility] along with complete lumbar xrays completed through [facility] on 02/05/2024. Patient notes low back pain [...] findings. Lumbar MRI completed on 02/20/2024 through [facility] and lumbar x-rays completed through [facility] on 02/05/2024. Cystogram stenosis is appreciated to [...] l spine , 4 or more view [address] [address] Jacobo johnson Name: JAREK johnson : [birth year] [...] izatio n on the right. There is radiotelephone operator ior listhe sis of L2 on L3 which measur es 5 mm with flexio n and extens ion. There is radiotelephone operator ior listhe sis of L3 on L4 [...] Audelia cheung MD on 024 4:[address] Radiology [facility] [address] [place] [address], [address], 02/08/2024 17:18:09 03/19/20 24 02/20/2024 MRI, lumba r spine , w/o contr ast No observ ation record ed. [email or web address] (Med Record) [address], [place], [address], 04/29/2024 13:40:28 05/07/20 24 02/20/2024 MRI, lumba r spine , w/o contr ast No observ ation record ed. BARCODE Not Available 2023 14:00:13 Result Notes None recorded. Procedures Surgical History None recorded. Imaging Results Imaging Date Name Status LastModified by Organiz ation Details LastModified Time 02/05/2024 XR, lumbosacral spine, 4 or more view completed [address] Radiology [facility] [address] [place], [address], 02/08/2024 17:18:09 02/20/2024 MRI, lumbar spine, w/o contrast completed [email or web address] (Med Record) [address], [place], [address], 04/29/2024 13:40:28 02/20/2024 MRI, lumbar spine, w/o contrast completed BARCODE Information not available 05/07/2024 14:00:13 Procedure Notes None recorded. Medical Equipment None Reported. Allergies Allergen ID Allergen Name Allergen Category Reaction Reaction Severity Criticality Documentation Date Start Date Code Code System Note Provider Name and Address Organization Details Recorded Time 765240 codeine medicatio n Not available Not available Not available 05/06/2024 2670 RxNorm Tamra Domonique [facility] 4 09:35:48 382648 naproxen medicatio n Not available Not available Not available 05/06/2024 7258 RxNorm Tamra Domonique [facility] 4 09:35:54 Medications Name Sig Start Date [...] Updated DateTime 05/06/2024 162.56 cm 43.8 kg/m2 935287.0 5 g 130 mm[Hg] 82 mm[Hg] Tamra Youssef [facility] 4 09:35:17 Social History None recorded. Functional Status None recorded. Mental Status None recorded. Family History Nothing Reported. Medical History No medical history recorded. Gynecological HistoryNo gynecological history recorded. Obstetrics History GPAL:G 0 P 0 0 0 0 Past Encounters Encounter ID Performer Location Encounter Start Date Encounter Closed Date Diagnosis/Indication Diagnosis SNOMED-CT Code Diagnosis ICD10 Code Diagnosis Note [id number] ASHLEIGH ROGERS APRN NEUROSURG [facility] [address] [place] [address] 02/05/2024 12:53:38 02/06/2024 05:14:28 Lumbar spondylosis [id number] M47.896 [id number] LISA ECHEVERRIA PA-C NEUROSURG [facility] [address] [place] [address] 05/06/2024 09:29:54 05/07/2024 04:26:58 Low back pain 843657462 M54.50 Health Concerns Section Related Observation LastModified by Organization Detai ls LastModified Time None Recorded Concern Status LastModified by Organization Details LastModified Time None Recorded Advance Directives Directive None Recorded Payers Encounter Date Sequence Insurance Name Policy Number Policy [place] Covered Member ID Lofton Member ID Guarantor Name 02/05/2024 1 [place] Sanjana Pierson [id number] Sanjana Pierson 02/05/2024 2 CIGNA SUPPLEMENTAL - [employer] LIFE INSURANCE (MEDICARE SUPPLEMENT) Sanjana Pierson [id number] Sanjana Pierson 05/06/2024 1 [place] Sanjana Pierson [id number] Sanjana Pierson 05/06/2024 2 [employer]NA SUPPLEMENTAL - [employer]URANCE (MEDICARE SUPPLEMENT) Sanjana Pierson [id number] Sanjana Pierson Notes Date Note Type Note Provider Name and Address Organization Details Recorded Time 02/05/2024 text/html Ms. Pierson is a 69-year-old female who presents to the office for evaluation of her low back pain that has been present for 5 years with no specific cause. ASHLEIGH ROGERS, HOSTEL PARENT [address] [place], [address], [facility] 02/05/2024 16:45:45 05/06/2024 text/html Sanjana Pierson is a 69-year-old presenting to the clinic for evaluation of low back pain x 5 years. Patient presents with disc containing lumbar MRI completed on 02/20/2024 through [facility] along with complete lumbar xrays completed through [facility] on 02/05/2024. Patient notes low back pain [...] in clinic today. LISA ECHEVERRIA PA-C [address] [place], [address], [facility] 05/06/2024 10:41:23 OBGyn Episode No OBEpisode recorded.
--- NOTE | 2024-12-07 16:05 | CT_ITS ---
PROCEDURE INFORMATION: Exam: CT Head Without Contrast Exam date and time: 12/07/2024 4:29 PM Age: 69 years old Clinical indication: Dizziness; Additional info: Vertigo R TECHNIQUE: Imaging protocol: Computed tomography of the head without contrast. Radiation optimization: All CT scans at this facility use at least one of these dose optimization techniques: automated exposure control; mA and/or kV adjustment per patient size (includes targeted exams where dose is matched to clinical indication); or iterative reconstruction. COMPARISON: US CA CAROTID DUPLEX BI 10/19/2021 11:02 AM FINDINGS: Brain: No intracranial hemorrhage. No mass effect, edema or midline shift. There are vague areas of decreased attenuation within the periventricular white matter likely secondary to chronic microvascular changes. Mild age related cerebral volume loss resulting in prominence of cortical sulci. Cerebral ventricles: Unremarkable for age and degree of cerebral volume loss. Paranasal sinuses: Visualized sinuses are unremarkable. No fluid levels. Mastoid air cells: Visualized mastoid air cells are well aerated. Bones/joints: Unremarkable. No acute fracture. Soft tissues: Unremarkable. IMPRESSION: No acute intracranial abnormality.
--- NOTE | 2024-12-07 16:05 | CT_ITS ---
PROCEDURE INFORMATION: Exam: CTA Head With Contrast, Arteriography Exam date and time: 12/07/2024 4:31 PM Age: 69 years old Clinical indication: Vertigo TECHNIQUE: Imaging protocol: Computed tomographic angiography of the head with contrast. Exam focused on the arteries. 3D rendering (Not supervised by radiologist): MIP and/or 3D reconstructed images were created by the technologist. Radiation optimization: All CT scans at this facility use at least one of these dose optimization techniques: automated exposure control; mA and/or kV adjustment per patient size (includes targeted exams where dose is matched to clinical indication); or iterative reconstruction. Contrast material: ISOVUE; Contrast volume: 80 ml; Contrast route: INTRAVENOUS (IV); COMPARISON: CT HEAD/BRAIN WO CON 12/07/2024 4:29 PM FINDINGS: ANTERIOR CIRCULATION: Right internal carotid artery: Intracranial segment is patent with no significant stenosis. No aneurysm. Right middle cerebral artery: No occlusion or significant stenosis. No aneurysm. Right anterior cerebral artery: No occlusion or significant stenosis. No aneurysm. Left internal carotid artery: Intracranial segment is patent with no significant stenosis. No aneurysm. Left middle cerebral artery: No occlusion or significant stenosis. No aneurysm. Left anterior cerebral artery: No occlusion or significant stenosis. No aneurysm. POSTERIOR CIRCULATION: Right vertebral artery: No occlusion or significant stenosis. No aneurysm. Left vertebral artery: No occlusion or significant stenosis. No aneurysm. Basilar artery: No occlusion or significant stenosis. No aneurysm. Right posterior cerebral artery: origin arising of the right ICA. No occlusion or significant stenosis. No aneurysm. Left posterior cerebral artery: No occlusion or significant stenosis. No aneurysm. Brain: No intracranial hemorrhage, mass effect, or midline shift. Cerebral ventricles: No ventriculomegaly. Bones/joints: Unremarkable. No acute fracture. Soft tissues: Unremarkable. IMPRESSION: No large vessel occlusion or significant stenosis.
--- NOTE | 2024-12-07 16:05 | CT_ITS ---
PROCEDURE INFORMATION: Exam: CTA Neck With Contrast Exam date and time: 12/07/2024 4:31 PM Age: 69 years old Clinical indication: Vertigo TECHNIQUE: Imaging protocol: Computed tomographic angiography of the neck with contrast. Exam focused on the cervical segments of the vasculature. 3D rendering (Not supervised by radiologist): MIP and/or 3D reconstructed images were created by the technologist. Radiation optimization: All CT scans at this facility use at least one of these dose optimization techniques: automated exposure control; mA and/or kV adjustment per patient size (includes targeted exams where dose is matched to clinical indication); or iterative reconstruction. Contrast material: ISOVUE; Contrast volume: 80 ml; Contrast route: INTRAVENOUS (IV); COMPARISON: CT HEAD/BRAIN WO CON 12/07/2024 4:29 PM FINDINGS: Right common carotid artery: No stenosis. No dissection or occlusion. Right internal carotid artery: No atherosclerotic changes. No stenosis of the extracranial segment. No dissection or occlusion. Right external carotid artery: No occlusion or stenosis of the origin. Left common carotid artery: No stenosis. No dissection or occlusion. Left internal carotid artery: No atherosclerotic changes. No stenosis of the extracranial segment. No dissection or occlusion. Left external carotid artery: No occlusion or stenosis of the origin. Right vertebral artery: No stenosis. No dissection or occlusion. Left vertebral artery: No stenosis. No dissection or occlusion. Thyroid: 4 cm circumscribed cystic nodule left lobe of the thyroid gland. Soft tissues: Normal. No significant soft tissue swelling. Bones/joints: Moderate spondylitic changes lower cervical spine. No acute bony abnormalities. Lungs: Lung apices are clear. IMPRESSION: 1. No evidence of carotid stenosis or vertebrobasilar insufficiency. 2. 4 cm cystic nodule left lobe of the thyroid gland better assessed on thyroid ultrasound study. COMMENTS: Consistent with the [employer]'s Incidental Findings Committee white paper (J Am Seema Radiol 2015): In patients aged 35 years and older with an incidental thyroid nodule equal to or greater than 1.[address], MRI or extrathyroidal US, further evaluation with dedicated thyroid US is recommended for patients with normal life expectancy and without comorbidities. For smaller nodules without suspicious features, no further evaluation or follow up is recommended. REFERENCES: NASCET CRITERIA. The degree of stenosis in the cervical segment of the internal carotid artery is based on NASCET criteria. Normal is no stenosis. Mild is less than 50% stenosis. Moderate is 50-69% stenosis. Severe is 70% to 99% stenosis. Total occlusion is no detectable patent lumen.
--- NOTE | 2024-12-07 16:08 | ED_ITS ---
Discharge Plan Disposition Patient Disposition: Home, Self-Care Prescriptions Prescriptions: New meclizine 25 mg tablet 25 mg PO BID PRN (Reason: dizziness) Qty: 14 0RF No Action montelukast 10 mg tablet 10 mg PO QHS PRN (Reason: allergies) 30 Days Qty: 30 Patient Comments: esomeprazole magnesium [Nexium] 20 mg capsule,delayed release(DR/EC) 20 mg PO DAILY allopurinol 100 mg tablet 100 mg PO DAILY primidone 50 mg tablet 50 mg PO ONCE potassium chloride [Klor-Con 10] 10 mEq tablet extended release 10 meq PO DAILY hydroxychloroquine 200 mg tablet 200 mg PO DAILY ammonium lactate 12 % cream 1 applic topical BID 30 Days Qty: 385 2RF aspirin [Aspir-Low] 81 mg tablet,delayed release (DR/EC) 81 mg PO DAILY terbinafine HCl 250 mg tablet 250 mg PO DAILY Patient Comments: TAKE 1 TABLET BY MOUTH ONCE DAILY FOR 42 DAYS tramadol 50 mg tablet 50 mg PO TID PRN (Reason: .) Patient Comments: TAKE 1 TABLET BY MOUTH THREE TIMES DAILY NEEDED gabapentin 300 mg capsule 600 mg PO TID Patient Comments: TAKE 1 CAPSULE BY MOUTH TWICE DAILY diclofenac sodium 1.5 % drops 1 drp topical ONCE Patient Comments: APPLY TO AFFECTED NAILS BEFORE USING SOLUTION/OINTMENT TREATMENT (30 DAY SUPPLY) spironolactone 25 mg tablet See Rx Instructions .ROUTE .COMPLEX Qty: 90 1RF Dose Instruction: Take 1 tablet by mouth once daily Rx Instructions: Take 1 tablet by mouth once daily triamterene-hydrochlorothiazid 37.5-25 mg tablet 1 tab PO DAILY metoprolol succinate 50 mg tablet extended release 24 hr See Rx Instructions .ROUTE .COMPLEX Qty: 90 3RF Dose Instruction: Take 1 tablet by mouth once daily Rx Instructions: Take 1 tablet by mouth once daily atorvastatin 40 mg tablet See Rx Instructions .ROUTE .COMPLEX Qty: 90 3RF Dose Instruction: Take 1 tablet by mouth once daily Rx Instructions: Take 1 tablet by mouth once daily losartan 50 mg tablet See Rx Instructions .ROUTE .COMPLEX Qty: 90 1RF Dose Instruction: Take 1 tablet by mouth once daily Rx Instructions: Take 1 tablet by mouth once daily methocarbamol 750 mg tablet 750 mg PO BID Qty: 28 0RF Referrals Follow up/Referrals: Ashley Jain MD [Primary Care Provider] - See instructions Activity Restrictions/Add. Instructions Additional Instructions/Restrictions: At this time it was felt you are safe to be discharged home. If new or worsening symptoms please do not hesitate to return the emergency department. There was a small spot on your thyroid that was found today that you will likely need to get an ultrasound for. These are usually benign. Please follow-up with your family doctor later this week to make sure everything is headed in the right direction and to arrange this continued evaluation. Clinical Impressions Clinical Impression: Benign paroxysmal positional vertigo, Hypomagnesemia, Thyroid nodule Stand Alone Forms Stand Alone Forms: Work/School Release Print Language Print Language: Macedonian Discharge ED Provider: Abdoulaye Martin General Adult HPI General Chief complaint: Dizziness Stated complaint: Dizzy, n/v Time Seen by Provider: 12/07/24 15:50 Mode of Arrival: EMS Source of Information: Patient Description of Symptoms (Recalled from ER Triage Doc. by RN): Patient arrives via EMS. Patient reports dizziness and nausea starting at 0700 yesterday morning. Patient states she has been laying on her right side. States when she moves her head from side to side or attempts to stand up, she becomes dizzy which then induces nausea. States she is now dry heaving. Denies fever. Denies blood in vomitus. Denies diarrhea. States she was on Gabapentin 300mg for a long time. States on Monday her primary increased the dose to 600mg TID. States she has only been taking it once a day. Denies any urinary symptoms. EMS reported IV attempt x3 unsuccessful. History of Present Illness HPI narrative: Patient is 69-year-old female with no pertinent past medical history presents emergency department for evaluation of dizziness and vomiting. Onset was acute, since yesterday morning. She awoke and then patrick from lying down and had severe vertiginous symptoms causing her to have to lay back down. She has had decreased p.o. intake secondary to nonbloody nonbilious vomiting which she has had approximately 5-6 episodes prior to arrival. It is worse with positioning her head and movement better with rest and laying down. No trauma. No infectious symptoms. No other acute complaints at this time. Please note that above description of symptoms, in this electronic medical record under categorization of recalled from ER triage doctor by RN are reflective of an initial nursing assessment, however, is not reflective of my full history and physical exam that was personally taken and clarified. Consequentially, this preceding description of symptoms, which may include the patient's categorized chief complaint in the EMR, do not reflect my personal clinical impression, and the ultimate description of history of present illness and patient stated complaints should be deferred to this section of the note. Unless stated otherwise or congruent with this section of the note, additional signs, symptoms, or incongruence should be interpreted as inaccurate with my clinical impression. Related Data Home Medications ?Medication ?Instructions ?Recorded ?Confirmed montelukast 10 mg tablet 10 mg PO QHS PRN allergies 30 days 05/08/18 12/07/24 #30 tabs aspirin 81 mg tablet,delayed 81 mg PO DAILY thinner 05/28/19 12/07/24 release (Aspir-Low) esomeprazole magnesium 20 mg 20 mg PO DAILY 12/16/20 12/07/24 capsule,delayed release (Nexium) allopurinol 100 mg tablet 100 mg PO DAILY 01/27/21 12/07/24 primidone 50 mg tablet 50 mg PO ONCE 03/10/21 12/07/24 potassium chloride 10 mEq 10 meq PO DAILY 03/29/22 12/07/24 tablet,extended release (Klor-Con) hydroxychloroquine 200 mg tablet 200 mg PO DAILY 03/28/23 12/07/24 triamterene 37.5 1 tab PO DAILY 04/03/23 12/07/24 mg-hydrochlorothiazide 25 mg tablet gabapentin 300 mg capsule 600 mg PO TID 11/15/23 12/07/24 tramadol 50 mg tablet 50 mg PO TID PRN . 11/15/23 12/07/24 terbinafine HCl 250 mg tablet 250 mg PO DAILY 03/27/24 12/07/24 diclofenac sodium 1.5 % topical 1 drp topical ONCE 11/12/24 12/07/24 drops Previous Rx's ?Medication ?Instructions ?Recorded spironolactone 25 mg tablet See Rx Instructions .Route 01/02/23 .COMPLEX #90 tabs metoprolol succinate 50 mg See Rx Instructions .Route 12/25/23 tablet,extended release 24 hr .COMPLEX #90 tabs atorvastatin 40 mg tablet See Rx Instructions .Route 06/20/24 .COMPLEX #90 tabs losartan 50 mg tablet See Rx Instructions .Route 08/19/24 .COMPLEX #90 tabs methocarbamol 750 mg tablet 750 mg PO BID #28 tabs 09/16/24 ammonium lactate 12 % topical cream 1 applic topical BID dry skin, 10/23/24 callus care 30 days #385 grams meclizine 25 mg tablet 25 mg PO BID PRN dizziness #14 tabs 12/07/24 Allergies Allergy/AdvReac Type Severity Reaction Status Date / Time codeine Allergy Intermediate Nausea Verified 12/07/24 15:57 naproxen (From Aleve) Allergy Other Verified 12/07/24 15:57 [facility] Disclaimer: The information contained in this section may have been updated after the patient was seen, as this information can be updated by other users. Medical History Lupus 03/28/2023, new diagnosis. [facility] follow[facility]up with [facility] in [place], currently on Plaquenil. Kidney stone HTN (hypertension), benign GERD (gastroesophageal reflux disease) Cancer Atrial fibrillation Asthma Arrhythmia Coronary artery disease Dyspnea Hyperlipidemia Surgical History H/O tubal ligation Hx of colonoscopy History of cholecystectomy History of total right hip replacement H/O arthroscopy of left knee Family History Other Cancer Hyperlipidemia Hypertension Social History Smoking Status: Never smoker second hand exposure: No alcohol intake: never substance use type: denies use current occupational status: other Travel in the last 8 weeks: None household members: other housing: house current occupational exposures/hazards: No caffeine: Yes Have you lived/traveled outside US in past 30 days?: No Contact w/someone who lives/traveled outside US past 30 days?: No Exposure to someone with infectious disease in past 14 days?: No Do you have a fever (greater than 100.4 F or 38 C)?: No Have you tested positive for COVID-19: No Exposed to someone with COVID-19 in past 14 days?: No Do you have a sore throat?: No Do you have a cough?: No Do you have any weakness?: No Do you have any diarrhea?: No Are you experiencing any unusual bleeding?: No Do you have any muscle aches/pain?: No Do you have any abdominal pain?: No Are you experiencing loss of taste or smell?: No Other Medical History Have you received the Flu Vaccine for this season: No Have you received the Pneumonia Vaccine: Yes ROS Obtained: Yes Systems reviewed as appropriate & no additional complaints except as documented Physical Exam General General appearance: alert and in no apparent distress Head Head exam: atraumatic and normocephalic Eye Eye exam: Present PERRL and EOMI ENT ENT exam: Present mucous membranes moist and other (Impacted cerumen bilateral) Neck Neck exam: Present normal inspection Chest Chest inspection: Present normal inspection and symmetric chest wall rise Respiratory Respiratory exam: Present normal lung sounds bilaterally; Absent respiratory distress Cardiovascular Cardiovascular exam: Present regular rate and normal rhythm Abdominal Exam Abdominal exam: Present soft; Absent tenderness Extremities Exam Extremities exam: Present normal inspection Neurological Exam Neurological exam: Present alert, oriented X3, CN II-XII intact and other ([place]- [place] produces torsional nystagmus on the right that extinguishes with rest over time); Absent motor sensory deficit Psychiatric Psychiatric exam: Present normal affect Skin Skin exam: Present warm and dry Medical Decision Making Medical Records Screening: Per USPSTF and CDC recommendations, given the prevalence of disease in our region, it is our hospital?s policy to screen for HIV and viral Hepatitis for all patients aged 18 and over and those with ongoing risk factors. [place] Inquiry Pt receiving controlled substance: No Vital Signs: 12/07/24 15:46 12/07/24 15:46 12/07/24 15:50 Temperature 97.9 F Temperature Source Oral Pulse Rate 63 Pulse Rate [Radial] 66 Respiratory Rate 20 Blood Pressure 137/68 Blood Pressure [L Arm] 137/68 Blood Pressure Mean 81 Blood Pressure Mean [L Arm] 91 Blood Pressure Source [L Arm] Automatic Cuff 02 Sat by Pulse Oximetry 95 94 L Oxygen Delivery Method Room Air 12/07/24 16:02 12/07/24 16:02 12/07/24 16:15 Temperature Temperature Source Pulse Rate Pulse Rate [Radial] Respiratory Rate 22 14 Blood Pressure 123/67 Blood Pressure [L Arm] Blood Pressure Mean 78 Blood Pressure Mean [L Arm] Blood Pressure Source [L Arm] 02 Sat by Pulse Oximetry Oxygen Delivery Method 12/07/24 16:38 12/07/24 16:39 12/07/24 16:45 Temperature Temperature Source Pulse Rate 70 70 Pulse Rate [Radial] Respiratory Rate 20 16 Blood Pressure 127/59 L Blood Pressure [L Arm] Blood Pressure Mean 73 Blood Pressure Mean [L Arm] Blood Pressure Source [L Arm] 02 Sat by Pulse Oximetry 90 L 90 L Oxygen Delivery Method 12/07/24 17:01 12/07/24 17:31 Temperature Temperature Source Pulse Rate 69 64 Pulse Rate [Radial] Respiratory Rate 20 11 L Blood Pressure 115/56 L 116/55 L Blood Pressure [L Arm] Blood Pressure Mean Blood Pressure Mean [L Arm] Blood Pressure Source [L Arm] 02 Sat by Pulse Oximetry 90 L 93 L Oxygen Delivery Method Lab Data Lab Results 12/07/24 15:49: POC Glucose 96 12/07/24 15:55: WBC 10.5, RBC 4.33, Hgb 13.4, Hct 39.2, MCV 90.5, MCH 30.9, MCHC 34.2, RDW 12.8, Plt Count 308, MPV 10.6 H, Neut % (Auto) 72.5, Lymph % (Auto) 19.0, [place] % (Auto) 6.7, Eos % (Auto) 1.0, Baso % (Auto) 0.3, Neut # (Auto) 7.6, Lymph # (Auto) 2.0, [place] # (Auto) 0.7, Eos # (Auto) 0.1, Baso # (Auto) 0.0, Sodium 138, Potassium 3.8, Chloride 100, Carbon Dioxide 31 H, Anion Gap 10.8, BUN 16, Creatinine 0.90, Estimated Creat Clear 46, Estimated GFR 62, Est GFR ( Amer) 75, Glucose 112 H, Calcium 9.3, Magnesium 1.5 L, Total Bilirubin 0.6, AST 41 H D, ALT 28, Alkaline Phosphatase 134 H, Total Protein 7.9, Albumin 4.0, Globulin 3.9 H, Albumin/Globulin Ratio 1.0 L, HCV Ab MARY w/Rflx PCR Qn Negative, HIV Ag/Ab Combo Qual Negative 12/07/24 15:55 12/07/24 15:55 Orders (Tests/Meds): ED MEDICATIONS Discontinued Medications Generic Name Dose Route Start Last Admin Trade Name Freq PRN Reason Stop Dose Admin Iopamidol 80 ml 12/07/24 16:29 12/07/24 16:33 Iopamidol-370 (76%);100ml Bottle IV 12/07/24 16:30 80 ml ONCE ONE Administration Magnesium Oxide 400 mg 12/07/24 18:05 12/07/24 18:25 Magnesium Oxide 400mg Tablet PO 12/07/24 18:06 400 mg ONCE ONE Administration Meclizine HCl 25 mg 12/07/24 16:08 12/07/24 16:14 Meclizine 25mg Tablet PO 12/07/24 16:09 25 mg ONCE ONE Administration Ondansetron HCl 4 mg 12/07/24 16:08 12/07/24 16:13 Ondansetron 4mg/2ml Vial IV 12/07/24 16:09 4 mg ONCE ONE Administration Sodium Chloride 10 ml 12/07/24 16:29 12/07/24 16:31 Sodium Chloride 0.9% 10ml Syr (Rad Only) IV 12/07/24 16:30 10 ml ONCE ONE Administration Sodium Chloride 50 ml 12/07/24 16:29 12/07/24 16:31 0.9 % Sodium Chloride 50 Ml Vial IV 12/07/24 16:30 50 ml ONCE ONE Administration ORDERS Category Date Time Status CT angio head Stat Cat Scan 12/07/24 16:[address] angio neck Stat Cat Scan 12/07/24 16:[address] head/brain wo con Stat Cat Scan 12/07/24 16:05 Completed CBC w/Auto Diff [Complete Blood Count Auto Diff] Stat Lab 12/07/24 15:55 Completed CMP [Comprehensive Metabolic Panel] Stat Lab 12/07/24 15:55 Completed HIV Combo Stat Lab 12/07/24 15:55 Completed Hepatitis C Ab Qual. W/ RFX Stat Lab 12/07/24 15:55 Completed MG [Magnesium] Stat Lab 12/07/24 15:55 Completed POC Glucose,Bedside Routine Lab 12/07/24 15:49 Completed ECG Data Tracing #1: Independently to her by me rate of 66, rhythm is regular, axis is normal, no significant ST elevation or depression in anatomical contiguous leads, no dagger Q waves in the lateral leads, no delta wave. QTc 448. Medical Decision Narrative: In summary patient is 69-year-old female past medical history described above presents emergency department for evaluation of vertiginous symptoms. Patient is hemodynamically stable nontoxic-appearing upon arrival, afebrile. Patient physical exam strongly aligns with benign paroxysmal positional vertigo. For vomiting and dizziness workup will be conducted for other causes or secondary derangement with hematologic labs, EKG, CT imaging of the head and neck. Initial inventions include meclizine, Zofran, Lamont maneuver. Initial workup reviewed by me, hematologic labs are largely nonactionable no significant leukocytosis or anemia, mild hypomagnesemia. Formal read no acute intracranial abnormality, no critical stenosis or large vessel occlusion. There is an incidental 4 mm nodule on the left thyroid gland for which ultrasound is recommended. The patient was placed in observation status at 1800. Medical necessity for observational status is serial physical exam to see if patient's symptoms improved to the point where she can ambulate safely at home. The patient was provided serial reevaluations while awaiting results. Results of exam during observation patient was ambulatory at bedside. She has a rollator at home and shared decision making discussion was had with her and significant other at bedside they both feel comfortable with discharge at this time. Patient we discharged with a course of meclizine and will follow-up with PCP and was given return precautions. Total time in observation 37 minutes. Procedure: Procedure performed was Lamont maneuver. Procedure performed by Abdoulaye Martin. Patient was sitting up in bed and was instructed to look to the right at 45 degrees and was slowly laid down in the supine position with her head over the top of the bed angling down towards the floor. Torsional nystagmus observed. Head was then in position to be looking up at the ceiling followed by looking towards the left at 45 degrees. Patient was then rolled onto her left side, sat up while holding her head 45 degrees to the left and then subsequently look straight ahead. Patient tolerated procedure well. There were no immediate complications. Critical Care Critical Care Time Critical Care Time: No
[2024-12-07] MEDS: ONDANSETRON 4MG/2ML VIAL 4 MG IV (16:13)
[2024-12-07] MEDS: MECLIZINE 25MG TABLET 25 MG PO (16:14)
--- NOTE | 2024-12-07 16:16 | PC.NURSE ---
Patient right side lying in a flat position. Patient medicated as documented. Visitor remains at patient's bedside. I informed the patient Radiology would be here to get her for her CT scans once her lab work resulted. Patient acknowledged understanding. Call light within reach. Voiced no questions or concerns.
--- NOTE | 2024-12-07 16:16 | PC.NURSE ---
Notified radiology that Dr Martin does not want sot wait on labs [facility]. Alla in radiology will collect pt shortly.
--- NOTE | 2024-12-07 16:26 | PC.NURSE ---
Patient currently in CT.
[2024-12-07 16:30] LABS: Chloride 100 mmol/L (98-107); Potassium 3.8 mmoL/L (3.5-5.1); Sodium 138 mmol/L (136-145)
[2024-12-07 16:31] LABS: Basophils % 0.3 % (0.1-2.0); Eosinophils # 0.1 Kmm3 (0.0-0.4); Hematocrit 39.2 % (37.0-47.0); Hemoglobin 13.4 g/dL (12.2-16.2); Mean Corpuscular HGB Conc 34.2 g/dL (31.8-35.4); Mean Corpuscular Hemoglobin 30.9 pg (27.0-31.2); Mean Corpuscular Volume 90.5 fl (81-99); Mean Platelet Volume 10.6 fl (7.4-10.4); Monocytes # 0.7 K/mm3 (0.1-1.0); Monocytes % 6.7 % (1.7-9.3); Neutrophils # 7.6 K/mm3 (1.8-7.8); Neutrophils % 72.5 % (37.0-80.0); Nucleated Red Blood Cells # 0 10^3/uL; Nucleated Red Blood Cells % 0 %; Platelet Count 308 K/mm3 (142-424); Red Blood Count 4.33 M/mm3 (4.20-5.40); Red Cell Distribution Width 12.8 % (11.5-17.5); Red Cell Distribution Width-SD 41.9 fL; White Blood Count 10.5 K/mm3 (4.8-10.8)
[2024-12-07] MEDS: SODIUM CHLORIDE 0.9% 10ML SYR (RAD ONLY) 10 ML IV (16:31)
[2024-12-07] MEDS: 0.9 % SODIUM CHLORIDE 50 ML VIAL IV (16:31)
[2024-12-07 16:33] LABS: Alanine Aminotransferase 28 U/L (12-78); Alkaline Phosphatase 134 U/L (38-126); Anion Gap 10.8 mEq/L (5-15); Aspartate Amino Transferase 41 U/L (14-36); Bilirubin,Total 0.6 mg/dl (0.2-1.3); Blood Urea Nitrogen 16 mg/dl (7-17); Carbon Dioxide 31 mmol/L (22.0-30.0); Creatinine Clearance Estimated 46 mL/min (50-200); Estimated Glomerular Filt Rate 62 ml/min (>60); GFR (African American) 75 ML/MIN (>60); Total Protein,Serum 7.9 g/dl (6.3-8.2)
[2024-12-07] MEDS: IOPAMIDOL-370 (76%);100ML BOTTLE 80 ML IV (16:33)
[2024-12-07 16:34] LABS: Calcium 9.3 mg/dl (8.4-10.2); Glucose 112 mg/dl (74-100); Magnesium 1.5 mg/dl (1.6-2.3)
[2024-12-07 16:36] LABS: Globulin 3.9 g/dL (1.3-3.2)
[2024-12-07 17:09] LABS: HIV Combo NEGATIVE (Negative)
[2024-12-07 17:17] LABS: Hepatitis C Ab Qual. W/ RFX NEGATIVE (Negative)
--- NOTE | 2024-12-07 18:20 | PC.NURSE ---
Positioning maneuver attempted with physician. See providers notes for details. Patient sitting on the side of bed. train system operator at bedside for safety.
[2024-12-07] MEDS: MAGNESIUM OXIDE 400MG TABLET 400 MG PO (18:25)
--- NOTE | 2024-12-07 18:36 | PC.NURSE ---
Patient was able to sit on the side of the bed for 10 minutes supporting her own body weight without swaying. With SBA x2 ED staff members, patient patrick to standing independently. Patient was able to ambulate 20+ feet independently with contact guard assist only. Patient returned to bed and placed her self back into the bed with minimal assistance. Patient states she utilizes a rollator walker at home for ambulation. Also states she has a walker that she can use if needed. Patient states her boyfriend is going to be staying with her as her caregiver. Provider witnessed ambulation and aware.
== END 2024-12-07 18:45 | disposition home or self-care (01) ==
PROVIDERS: Emergency Provider Emergency Medicine; PCP Family Medicine
DX: H81.10 Benign paroxysmal vertigo, unspecified ear (principal); E83.42 Hypomagnesemia; R11.2 Nausea with vomiting, unspecified; Z11.59 Encounter for screening for other viral diseases; Z11.4 Encounter for screening for human immunodeficiency virus [HIV]
CPT/HCPCS: 70450; 70496; 70498; 80053; 82962; 83735; 85025; 86803; 87389; 93005; 96374; 99285; J2405; Q9967

== ENCOUNTER 2025-02-28 14:25 | Outpatient (CLI) | payer MEDICARE, SELFPAY ==
--- OUTSIDE RECORDS SUMMARY | 2025-01-03 10:15 | XMS_ITS ---
Author Organization [facility] Address [address] [facility] [address] [place] [phone] Care Team Providers Care Typesetters Printer Name Role Phone Yannick Jain Primary Care Provider Boris Aguilar [phone] Allergies Allergen (clinical drug ingredient) Drug/Non Drug Allergy documented on EMR Reaction Allergy Type Onset Date Status Aleve Unknown Drug Allergy Active acetaminophen / oxycodone Percocet Unknown Drug Allergy Active codeine Codeine sick to stomach Drug Allergy A ctive REASON FOR VISIT F/U from [facility] ER Encounters Encounter Location Date Provider Diagnosis [place] [address] [facility] [address] [place] [phone] 01/03/2025 Boris Aguilar Plan Of Treatment No Information Progress Notes * JAREK MARTINEZKEVONOB:[birth year] (70 yo F)Acc No.[id number]:01/03/2025 Progress Notes Patient: RADHA CAM Provider: Aditi Aguilar M.D. :1955 A ge:69 Y S ex:Female Date:01/03/2025 Address:[address] [facility] [address] [id number] Pcp:Yannick Jain Subjective: * Chief Complaints: * 1 . F/U from [facility] ER. * ROS: D ERMATOLOGY: [...] COVID screening: negative 01/15/2020, Colonoscopy at [facility] Dr. Gallegos, tubular adenoma 01/16/2020, [...] affeine: yes, frequency:occasional. Marital Status: Single. Occupation: [employer]. Past smoking status: no. Alcohol: No. * Allergies: A leve, Percocet, Codeine: sick to stomach. Objective: * Vitals: Assessment: Plan: * Treatment: * Images: Billing Information: * Visit Code: * Procedure Codes: * Electronic signature of Chayo Aguilar MD on 02/28/2025 at 02:28 PM EDT Sign off status: Pending * Provider: Aditi Aguilar M.D. Date: 0 01/03/2025 Generated for Nile lipscomb/Adithya/[place] on: 0 02/28/2025 02:28 PM EDT
--- OUTSIDE RECORDS SUMMARY | 2025-02-06 11:30 | XMS_ITS ---
Author Organization [facility] Address [address] [facility] [address] [place] [phone] Care Team Providers Care Product Manager Financial Services Name Role Phone Yannick Jain Primary Care [...] Interpretation:satisfactory Performing Lab: Notes/Report: Test performed by [facility], [address] , [address], [place] [address] Jung Jc MD, Criminal Profiler CLIA: [id number] Sodium 136 135-145 mmol/L Potassium 4.5 3.5-5.3 [...] Interpretation:Normal Performing Lab: Notes/Report: Test performed by [facility] [address] [place] [address] , [address], [place] [address] Jung Jc MD, Criminal Profiler CLIA: [id number] Magnesium 1.7 1.6-2.4 mg/dL Reason For Referral [...] Status Risk Notes Problem Osteoarthritis of knee (646267208) Arthropathy of left knee (M17.12) Active confirmed Problem Hypomagnesemia (717181908) Hypomagnesemia (E83.42) Active confirmed Vital Signs Blood pressure systolic 120 mm Hg 02/07/20 25 Blood pressure diastolic 70 mm Hg 025 Heart Rate 67 /min 02/06/2025 Height 65.25 in 02/06/2025 Weight 256.6 lbs 02/06/2025 BMI 42.37 kg/m2 02/06/2025 Encounters Encounter Location Date Provider Diagnosis [facility] [address] [phone] 02/06/2025 Yannick Jain Essential hypertensi on I10 [...] * TJ MARTINEZOB:[birth year] (70 yo F)Acc No.[id number]:02/06/2025 Progress Notes Patient: RADHA CAM Provider: Yannick Jain M.D. :1955 A ge:70 Y S ex:Female Date:02/06/2025 Address:[address], [place] Subjective: * Chief Complaints: * 1 . [...] 01/12/15, COVID screening: negative 01/15/2020, Colonoscopy at [facility] Dr. Gallegos, tubular adenoma 01/16/2020, [...] affeine: yes, frequency:occasional. Marital Status: Single. Occupation: [employer]. Past smoking status: no. Alcohol: No. * [...] * Images: Billing Information: * Visit Code: 84852 Office Visit, Est Pt., Level 4. * Procedure Codes: G2211 Complex e/m visit add on. 1036F TOBACCO NON-USER. G8950 PREHTN/HTN BP DOC INDCD F/U DOC. G8752 MOST RECENT SYSTOLIC BP < 140MM HG. G8754 MOST RECENT DIASTOLIC BP < 90MM HG. * Electronic signature of Yannick Jain MD on 02/28/2025 at 02:29 PM EDT Sign off status: Pending * Provider: Yannick Jain M.D. Date: 02/06/2025 Generated for Nile lipscomb/Adithya/eTransmitting on: 0 02/28/2025 02:29 PM EDT History and Physical Notes * [...]
--- OUTSIDE RECORDS SUMMARY | 2025-02-17 06:54 | XMS_ITS ---
[facility] Address [address] [facility] 36 [facility] [address] [place] [phone] Care Team Providers Care Hadoop Analyst Name Role Phone Yannick Jain Primary Care Provider REASON FOR VISIT due mamm, colonoscopy Encounters Encounter Location Date [facility] [address] [place] [phone] 02/17/2025 Yannick Jian Screening for breast cancer Z12.39 and Screening for colon cancer Z12.11 Assessments Encounter Date Diagnosis (ICD Code) Assessment Notes Treatment Notes Treatment Clinical Notes Section Notes 02/17/2025 Screening for breast cancer (ICD-10 - Z12.39) 02/17/2025 Screening for colon cancer (ICD-10 - Z12.11) Plan Of Treatment Pending Test Test Name Order Date colonoscopy 02/17/2025 Mammogram 02/17/2025 Progress Notes * TJ MARTINEZOB:[birth year] (70 yo F)Acc No.[id number]:02/17/2025 Patient: RADHA CAM :1955 A ge:70 Y S ex:Female Address:[address] [facility] [address] [place] [address] Subjective: * Chief Complaints: * D ue mamm, colonoscopy * Medical History: * Surgical History: * Hospitalization/Major Diagno stic Procedure: * Medications: Objective: * Vitals: * Physical Examination: Assessment: * Assessment: 1. S creening for breast cancer - Z12.39 (Primary) 2 . S creening for colon cancer - Z12.11 Plan: * Treatment: 2.?Screening for colon cancer?Imaging: colonoscopy* Adenike Patton 02/17/2025 03:1 3:41 PM EDT >sent to [facility] for referral to Dr Gallegos * Procedure Codes: * true * Date: Generated for Nile lipscomb/Adithya/Mariaelenaitting on: 0 02/28/2025 02:29 PM EDT
--- NOTE | 2025-02-28 14:27 | MM_ITS ---
PROCEDURE INFORMATION: Exam: MG Bilateral Screening 3D Mammography Exam date and time: 02/28/2025 2:40 PM Age: 70 years old Clinical indication: Screening examination TECHNIQUE: Imaging protocol: Bilateral Screening tomosynthesis and 2D mammography including computer-aided detection (CAD) when performed. COMPARISON: 1. MG MM MAMMO DIGITAL LIGIA SCREEN BILAT 12/04/2023 3:20 PM 2. MG MM MAMMO DIGITAL LIGIA SCREEN BILAT 01/26/2022 12:28 PM FINDINGS: MAMMOGRAPHY: Breast composition: The breasts are almost entirely fatty. Mass: None. Architectural distortion: None. Calcifications: No suspicious calcifications. Asymmetric density: None. Skin thickening: None. Axillary adenopathy: None. IMPRESSION: No mammographic evidence of malignancy. Annual screening is recommended unless otherwise clinically indicated. ASSESSMENT: BI-RADS Category 1: Negative.
--- OUTSIDE RECORDS SUMMARY | 2025-02-28 14:29 | XMS_ITS | Clinical Summary ---
Author Organization [facility] Address [place] [address] Phone Care Team Providers Care Blankbook Forwarder Name Role Phone Dillan Jain MD Primary Care Provider [phone] Allergies Active Allergy Reactions Criticality Noted Date Comments Acetaminophen Other (See Comments) 05/21/2024 Codeine Nausea And Vomiting, Other (See Comments) Medium 04/29/2022 Naproxen Other (See Comments) 04/29/2022 Oxycodone Hcl Other (See Comments) 05/21/2024 Medications albuterol (PROVENTIL HFA;VENTOLIN HFA) 90 mcg/actuation Inhl HFA Aerosol Inhaler Inhale 2 Puffs into the lungs. 03/29/2022 Active allopurinoL (ZYLOPRIM) 100 mg Oral Tablet Take 100 mg by mouth daily. Active aspirin (VAZALORE) 81 mg Oral Capsule Take 1 Capsule by mouth daily. Active atorvastatin (LIPITOR) 40 mg Oral Tablet by Other route. 01/04/2022 Active baclofen 5 mg Oral Tablet 08/07/2024 Active Calcium Carbonate 600 mg calcium (1,500 mg) Oral Tablet Take 600 mg by mouth daily. Active esomeprazole (NEXIUM) 20 mg Oral Capsule, Delayed Release(E.C.) Take 20 mg by mouth. Active gabapentin (NEURONTIN) 300 mg Oral Capsule Take 1 Capsule by mouth 2 times daily. 12/22/2023 Active hydroCHLOROthia zide 25 mg Oral Tablet Take 25 mg by mouth. 03/29/2022 Active hydroxychloroqu ine (PLAQUENIL) 200 mg Oral Tablet Take 200 mg by mouth 2 times daily. Active losartan (COZAAR) 50 mg Oral Tablet Take 50 mg by mouth daily. Active metoprolol succinate (TOPROL-XL) 50 mg Oral Tablet Sustained Release 24 hr Take 1 Tablet by mouth daily. 01/04/2022 Active potassium chloride (KLOR-CON) 10 mEq Oral Tablet Sustained Release Take 10 mEq by mouth daily. Active primidone (MYSOLINE) 50 mg Oral Tablet Take 100 mg by mouth daily. 03/10/2021 Active spironolactone (ALDACTONE) 25 mg Oral Tablet Take 25 mg by mouth daily. Active traMADoL (ULTRAM) 50 mg Oral Tablet Take 50 mg by mouth 3 times daily as needed. Active triamterene-hyd rochlorothiazid e (MAXZIDE-25) 37.5-25 mg Oral Tablet Take 1 Tablet by mouth daily. Active promethazine-de xtromethorphan (PROMETHAZINE-D M) 6.25-15 mg/5 mL Oral SyrupIndication s:Acute cough Take 5 mL by mouth every 6 hours as needed (for cough). 150 mL 09/07/2024 Active Active Problems Problem Noted Date Diagnosed Date Arteriosclerosis of coronary artery 09/07/2024 Dyspnea 09/07/2024 Electrocardiogram abnormal 09/07/2024 Hyperlipidemia 09/07/2024 Hypertensive disorder 09/07/2024 Hypertensive heart disease 09/07/2024 Impacted ear wax 09/07/2024 Degenerative joint disease (DJD) of lumbar spine 09/07/2024 Lumbar radiculopathy 09/07/2024 Spinal stenosis 09/07/2024 Ventricular premature beats 09/07/2024 High risk medication use 06/05/2024 Osteoarthrosis 05/21/2024 SLE (systemic lupus erythematosus) 05/21/2024 Social History Tobacco Use Types Packs/Day Years Used Date Smoking Tobacco: Never Assessed Comments Unknown Sex and Gender Information Value Date Recorded Sex Assigned at Not on file Legal Sex Female 5:26 AM EDT Gender Identity Not on file Sexual Orientation Not on file Obstetrics History Last Filed Vital Signs Vital Sign Reading Time Taken Comments Blood Pressure 130/80 09/07/2024 4:17 PM EST Pulse 77 09/07/2024 4:17 PM EST Temperature 36.9 C (98.5 F) 09/07/2024 4:17 PM EST Respiratory Rate 20 09/07/2024 4:17 PM EST Oxygen Saturation 96% 09/07/2024 4:17 PM EST Inhaled Oxygen Concentration - - Weight 115.7 kg (255 lb) 09/07/2024 4:17 PM EST Height 165.1 cm (5' 5 ) 09/07/2024 4:17 PM EST Body Mass Index 42.43 09/07/2024 4:17 PM EST Plan of Treatment Health Maintenance Due Date Last Done Comments Wellness Exam Medicare 01/08/1958 Hepatitis C Screening 1971 Cologuard 1998 Colon Cancer Screening 1998 Colonoscopy 1998 FIT 1998 Sigmoidoscopy 1998 Virtual Colonography 1998 RSV or 60+ (1 - Risk 60-74 years 1-dose series) 2013 Bone Density Screening 2018 Pneumococcal Vaccine 50+ (2 of 2 - PCV20 or PCV21) 10/15/2019 10/15/2018 COVID-19 Vaccine (1 - season) 2024 Influenza Vaccine (#1) 2025 2, 05/25/2020, 04/29/2019, Additional history exists Breast Cancer Screening 12/03/2025 12/04/19 24, 01/26/2022, 01/22/2021, Additional history exists DTaP/TDaP/Td (2 - Td or Tdap) 12/24/2028 12/24/2018 Zoster Completed 12/26/2018, 10/17/2018 Hepatitis B Vaccine Aged Out No longe r eligible based on patient's age to complete this topic Meningococcal B Vaccine Aged Out No l onger eligible based on patient's age to complete [...] EDT Impressions 12/04/2023 3:40 PM EDT Negative ([id number]-[id number]-9) ~ RECOMMENDATION: Routine screening mammogram in 1 [...] the next mammogram, in accordance with the [employer] and the Society of Breast Imaging recommendations. Narrative 12/04/2023 3:40 PM EDT Procedure:MM MAMMO DIGITAL LIGIA SCREEN BILAT ~ Reason for exam: screening, asymptomatic. Z12.31-Encounter for screening mammogram for malignant neoplasm of agjxpr-FQX-51-CM ~ MM MAMMO DIGITAL LIGIA SCREEN BILAT [...] for screening mammogram for malignant neoplasm of [id number]-YSP-82-CM ~ MM MAMMO DIGITAL LIGIA SCREEN BILAT Bilateral CC and MLO view(s) were taken. There are scattered fibroglandular densities. Prior study comparison: Compared with prior studies the most recentbeing 01/26/22, 01/22/21 No mammographic evidence of malignancy. ~ IMPRESSION: Negative (GUW-Lnoymazy-6) ~ RECOMMENDATION: Routine screening mammogram in 1 [...] the next mammogram, in accordance with the [employer] and the Society of Breast Imaging recommendations. Dillan Jain MD IMG MAMMOGRAPHY ORDERABLE S Final Result from Last 3 Months or Most Recently Relevant to Health Maintenance Insurance MEDICARE [place] A AND B MEDICARE [place] AND B CITIZEN OF [facility] MEDICARE SPPLMNT Care Teams Blankbook Forwarder Relationship Specialty Start Date End Date Dillan Jain MD [address] [facility] [address] [place] [address] PCP - General Family Medicine 11/30/18
--- OUTSIDE RECORDS SUMMARY | 2025-02-28 14:29 | XMS_ITS | Patient Health Record ---
Author Organization [facility] Address [address] [facility] [address] [facility] [address] [place] [id number] Care Team Providers Care Monument Letterer Name Role Phone Yannick Jain Primary Care Provider Boris Aguilar Unavailable [phone] Lydia Moseley Unavailable [phone] Allergies Allergen (clinical drug ingredient) Drug/Non Drug Allergy documented on EMR Reaction Allergy Type Onset Date Status Aleve Unknown Drug Allergy Active acetaminophen / oxycodone Percocet Unknown Drug Allergy Active codeine Codeine sick to stomach Drug Allergy A ctive Results Component Value Reference Range Notes P-Comprehensive Metabolic Pa alysha (CMP) Reviewed date:02/18/2025 01:22:40 PM Interpretation:satisfactory Performing Lab: Notes/Report: Test performed by [facility], [place] [address] [place] [address] , [address], [place] [address] Jung Jc MD, Waistline Joiner Overlock CLIA: [id number] Sodium 136 135-145 mmol/L Potassium 4.5 3.5-5.3 [...] Interpretation:Normal Performing Lab: Notes/Report: Test performed by [facility], [address] , [address], [place] [address] Jung Jc MD, Waistline Joiner Overlock CLIA: [id number] Magnesium 1.7 1.6-2.4 mg/dL DNADSAB Reviewed date:06/10/2024 09:57:59 AM Interpretation: Performing Lab: Notes/Report: DNADSAB 14 0-9 IU/mL Negative <5 Equivocal 5 - 9 Positive >9 Performed at: [address] [id number] Metalsmith Apprentice: Esa Antunez PhD, Phone: [phone] Reviewed date:06/10/2024 09:57:59 AM Interpretation: Performing Lab: Notes/Report: C4 26 12-38 mg/dL C3 Reviewed date:06/10/2024 09:57:59 AM Interpretation: Performing Lab: Notes/Report: C3 174 82-167 mg/dL Performed at: [address] [id number] Metalsmith Apprentice: Esa Antunez PhD, Phone: [phone] H-Sed Rate Reviewed date:06/07/2024 11:32:10 AM Interpretation: [...] 0.3 0.0-0.4 K/mm3 BA# 0.1 0-0.2 K/mm3 P-Basic Metabolic Panel (BMP ) Reviewed date:08/08/2024 01:31:20 PM Interpretation: Performing Lab: Notes/Report: Test performed by [facility] [address] [place] [address] , [address], [place] [address] Jung Jc MD, Waistline Joiner Overlock CLIA: [id number] Sodium 137 135-145 mmol/L Potassium 4.2 3.5-5.3 mmol/L Chloride 101 97-108 mmol/L CO2 25 22-32 mmol/L Glucose 100 65-99 mg/dL BUN 18 8-23 mg/dL Creatinine 0.84 0.50-1.00 mg/dL Calcium 9.6 8.6-10.4 mg/dL eGFR by Creatinine 74 >59 mL/min/1.73m2 P-Comprehensive Metabolic Nd alysha ([facility]) Reviewed date:03/27/2024 09:46:32 AM Interpretation:alk phos 146 Performing Lab: Notes/Report: Test performed by [facility] [address] [place] [address] , [address], [place] [address] Jung Jc MD, Waistline Joiner Overlock CLIA: [id number] Sodium 135 135-145 mmol/L Potassium 4.7 3.5-5.3 [...] <0.2-1.2 mg/dL A/G Ratio 1.1 1.1-2.5 mg/dL [facility] Metabolic [facility] ([facility]) Reviewed date:12/06/2024 10:50:40 AM Interpretation:alk phos 142 Performing Lab: Notes/Report: Test performed by [facility] [address] [place] [address] , [address], [place] [address] Jung Jc MD, Waistline Joiner Overlock CLIA: [id number] Sodium 138 135-145 mmol/L Potassium 4.4 3.5-5.3 [...] 0.5 <0.2-1.2 mg/dL A/G Ratio 1.1 1.1-2.5 Influenza Screen (in house) Reviewed date:07/29/2024 07:44:10 PM Interpretation:neg Performing Lab: Notes/Report: neg results neg Rapid Strep- Inhouse Reviewed date:07/29/2024 07:44:38 PM Interpretation:neg Performing Lab: Notes/Report: neg strep test neg Covid test (in house) Reviewed date:07/29/2024 07:43:56 PM Interpretation:neg Performing Lab: Notes/Report: neg Result: neg venous doppler ultrasound le g, lower right Reviewed date:08/05/2024 01:17:08 PM Interpretation: Performing Lab: Notes/Report: Medications Medication SIG (Take, Route, Frequency, Duration) Notes Start Date End Date Status Baclofen 5 MG 1 tablet as needed Orally Once a day; Duration: 30 day(s) Not-Taking Potassium Chloride ER 10 MEQ Take 1 tabl et by mouth once daily; Duration: 90 days Active Allopurinol 100 MG Take 1 tablet by mouth once daily; Duration: 90 Active CoQ-10 200 MG as directed Orally 02/06/2025 Active Spironolactone 25 MG Take 1 tablet by mouth once daily; Duration: 90 Active traMADol HCl 50 MG 1 tablet as needed Orally three times a day as needed 01/21/2025 Active Triamterene-HCTZ 37.5-25 MG Take 1 table t by mouth once daily; Duration: 90 Active Montelukast Sodium 10 MG 1 tab(s) orally once a day; Duration: 90 days 05/27/2017 Active Metoprolol Succinate ER 50 MG 1 tab(s) orally once a day Active Primidone 50 MG Take 1 tablet by mouth twice daily; Duration: 90 Active NexIUM 24HR 20 MG 1 cap(s) orally once a day (in the morning) Active Aspirin Adult Low Dose 81 MG 1 tab(s) or ally once a day Active Albuterol Sulfate HFA 108 (90 Base) MCG/ACT 1 puff as needed Inhalation every 4 hrs prn 07/29/2024 Active Atorvastatin Calcium 40 MG 1 tab(s) oral ly once a day Active Losartan Potassium 50 MG 1 tablet Orally Once a day; Duration: 30 day(s) Active Hydroxychloroquine Sulfate 200 MG 1 tab twice daily Active Immunizations Vaccine Route Administration Date Status Comme nts [...] Tdap-Adacel (over 7yrs) IM Intramuscular 12/24/2018 Administered Problems Problem Type SNOMED Code ICD Code Onset Dates Problem Status W/U Status Risk Notes Problem Essential hypertension (52029121) Essential hypertension (I10) Active confirmed Problem Morbid obesity (068338531) Morbid obesity (E66.01) Active confirmed Problem Dyspepsia (605065646) Dyspepsia (K30) Active co nfirmed Problem Degeneration of lumbar intervertebral disc (78704700) Degenerative disc disease, lumbar (M51.36) Active confirmed Problem Palpitations (82507256) Heart palpitations (R00.2) Active confirmed Problem Recurrent falls (016376372) Falls frequently (R29.6) Active confirmed Problem Hypomagnesemia (962869941) Hypomagnesemia (E83.42) Active confirmed Problem Chronic pain (99812710) Other chronic pain (G89.29) Active confirmed Problem Osteoarthritis (225382372) Unspecified osteoarthritis, unspecified site (M19.90) Active confirmed Problem Sciatica (55366185) Lumbago with sciatica, left side (M54.42) Active confirmed Problem Onychomycosis (189320683) Onychomycosis (B35.1) Active confirmed Problem Shoulder joint pain (178834573) Pain in left shoulder (M25.512) Active confirmed Problem Chronic pain (08997375) Other chronic pain (G89.29) Active confirmed Problem Pain of left knee joint (finding) (018524807752916) Pain in left knee (M25.562) Active confirmed Problem Gastroesophageal reflux disease (disorder) (411320378) Chronic GERD (K21.9) Active confirmed Problem Obstructive sleep apnea syndrome (10085971) JOSE (obstructive sleep apnea) (G47.33) Active confirmed Problem Ectopic atrial beats (916583624) Ectopic atrial beats (I49.1) Active confirmed Problem Body mass index 40+ - morbidly obese (551777651) BMI 40.0-44.9, adult (Z68.41) Active confirmed Problem Acquired trigger finger (1911215) Trigger finger of right thumb (M65.311) Active confirmed Problem Raised antinuclear antibody (463399528) VALENTINA positive (R76.8) Active confirmed Problem Sleep disturbance (71557580) Sleep disturbance, unspecified (G47.9) Active confirmed Problem Pure hypercholesterolemia (054047892) Pure hypercholesterolemia (E78.00) Active confirmed Problem Contracture of tinoco r fascia (508498219) Dupuytren's contracture (M72.0) Active confirmed Problem Fibrocystic breast changes (58168337) Fibrocystic breast disease (FCBD), unspecified laterality (N60.19) Active confirmed Problem Lumbar facet joint pain (064675324) Lumbar facet joint pain (M54.5) Active confirmed Problem Osteoarthritis of knee (954163430) Arthropathy of left knee (M17.12) Active confirmed Problem Chondrocalcinosis (016357592) Chondrocalcinosis (M11.20) Active confirmed Problem Lumbar facet joint pain (675658647) Lumbar facet joint pain (M54.59) Active confirmed Problem Injury of rotator cuff (567384561) Injury of left rotator cuff, subsequent encounter (S46.002D) Active confirmed Problem Systemic lupus erythematosus (97600097) Other forms of systemic lupus erythematosus, unspecified organ involvement status (M32.8) Active confirmed Vital Signs Heart Rate 67 /min 02/06/2025 Blood pressure diastolic 70 mm Hg 02/06/2025 Height 65.25 in 02/06/2025 Blood pressure systolic 120 mm Hg 02/06/2025 Weight 256.6 lbs 02/06/2025 BMI 42.37 kg/m2 02/06/2025 Encounters Encounter Location Date Provider Diagnosis [facility] [address] [facility] [address] [place], [place] [id number] 03/21/2024 Yannick Jain Onychomycosis of toe nail B35.1 [facility] [address] [place], [place] [id number] 05/20/2024 Yannick Jain Essential hypertensi on I10 ; Onychomycosis B35.1 ; Heart palpitations R00.2 and Lumbago with sciatica, left side M54.42 [facility] [address] [place], [place] [id number] 07/29/2024 Lydia Moseley URI (upper respiratory infection) J06.9 and Leg edema R60.0 [facility] [address] [place], [place] [id number] 08/05/2024 Lydianicole Moseley Essential hypertension I10 and Leg edema R60.0 [facility] [address] [place], [place] [id number] 08/19/2024 Yannick Jain Onychogryposis of to enail L60.2 ; Essential hypertension I10 ; Lumbar facet joint pain M54.59 and Degeneration of intervertebral disc of lumbar region, unspecified whether pain present M51.369 [facility] [address] [place], [place] [id number] 12/02/2024 Yannick Jain Lumbar facet joint p ain M54.59 ; Unspecified osteoarthritis, unspecified site M19.90 ; VALENTINA positive R76.8 ; Pain in left shoulder M25.512 ; Other chronic pain G89.29 ; Essential hypertension I10 ; Morbid obesity E66.01 and BMI 40.0-44.9, adult Z68.41 [facility] [address] [place], [place] [id number] 02/06/2025 J Nakul Jain Essential hypertensi on I10 ; Heart palpitations R00.2 ; Arthropathy of left knee M17.12 ; Hypomagnesemia E83.42 and Pure hypercholesterolemia E78.00 [facility] [address] [place], [place] [id number] 03/27/2024 J Nakul Jain [facility] [address] [place], [place] [id number] 07/11/2024 Yannick Jain Other chronic pain G 89.29 [facility] [address] [place], [place] [id number] 10/14/2024 J Nakul Jain [facility] [address] [place], [place] [id number] 12/06/2024 J Nakul Jain [facility] [address] [place] [id number] 12/06/2024 J Nakul Jain [facility] [address] [place] [id number] 12/31/2024 J Nakul Jain [facility] [address] [place] [id number] 01/20/2025 J Nakul Jain Other chronic pain G 89.29 [facility] [address] [place], [place] [id number] 02/17/2025 Yannick Jain Screening for breast cancer Z12.39 and Screening for colon cancer Z12.11 [facility] [address] [place], [place] [id number] 08/22/2024 J Nakul Jain Rhinitis, unspecifie d type J31.0 [facility] [address] [place], [place] [id number] 09/06/2024 J Nakul Jain Rhinitis, unspecifie d type J31.0 Assessments Encounter Date Diagnosis (ICD Code) Assessment Notes Treatment Notes Treatment Clinical Notes Section Notes 03/21/2024 Onychomycosis of toe nail (ICD-10 - B35.1) 05/20/2024 Essential hypertensi on [...] BMP today; reviewed US records with her 08/19/2024 Essential hypertensi on (ICD-10 - I10) 08/19/2024 Onychogryposis of toenail (ICD-10 - L60.2) 08/22/2024 Rhinitis, unspecifie d type (ICD-10 - J31.0) 01/20/2025 Other chronic pain (ICD-10 - G89.29) 02/06/2025 Essential hypertensi on (ICD-10 - I10) 02/06/2025 Heart palpitations (ICD-10 - R00.2) 02/17/2025 Screening for breast cancer (ICD-10 - Z12.39) 02/17/2025 Screening for colon cancer (ICD-10 - Z12.11) 12/02/2024 Unspecified osteoarthritis, unspecified site (ICD-10 - M19.90) 12/02/2024 Lumbar facet joint p ain (ICD-10 - M54.59) 09/06/2024 Rhinitis, unspecifie d type (ICD-10 - J31.0) 02/06/2025 Arthropathy of left knee (ICD-10 - M17.12) 12/02/2024 VALENTINA positive (ICD-10 - R76.8) 08/19/2024 Lumbar facet joint p ain (ICD-10 - M54.59) 05/20/2024 Heart palpitations (ICD-10 - R00.2) 05/20/2024 Lumbago with sciatic a, left side (ICD-10 - M54.42) 08/19/2024 Degeneration of intervertebral disc of lumbar region, unspecified whether pain present (ICD-10 - M51.369) 02/06/2025 Hypomagnesemia (ICD- 10 - E83.42) 12/02/2024 Pain in left shoulde r (ICD-10 - M25.512) 12/02/2024 Other chronic pain (ICD-10 - G89.29) 02/06/2025 Pure hypercholesterolemia (ICD-10 - E78.00) 12/02/2024 Essential hypertensi on (ICD-10 - I10) 12/02/2024 Morbid obesity (ICD- 10 - E66.01) 12/02/2024 BMI 40.0-44.9, adult (ICD-10 - Z68.41) Plan Of Treatment Pending Test Test Name Order Date colonoscopy 02/17/2025 Mammogram 02/17/2025 Insurance Providers Payer Name Payer Address Payer Phone Subscriber Number Group Number Insured Name Patient Relationship to Insured Coverage Start Date Coverage End Date MEDICARE PART B [address] [address] [place] [address] [phone] [id number] RADHA MARTINEZ Self - patient is the insured [facility]LY [facility] MEDICARE SUPPLEMENT [address] [address] [place], [place] [id number] RADHA MARTINEZ Self - patient is the insured Medications Administered Medication Instructions Date of Administration Dosage Notes Dexamethasone 10/11/2007 1 mL Dexamethasone 07/04/2008 1 mL Medical (General) History Medical History History ICD Code Esophageal reflux Diverticulosis hypertension 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 Gallegos, tubular gabrielle noma 01/16/[address] Reddy Hospitalization History Reason Date(Month/Year) [facility] ER- pain in right hip 12/14/08
== END 2025-02-28 23:59 | disposition home or self-care (01) ==
LOC: RAD 14:26
PROVIDERS: PCP Family Medicine; Visit Provider Family Medicine
DX: Z12.31 Encounter for screening mammogram for malignant neoplasm of breast (principal); R92.313 Mammographic fatty tissue density, bilateral breasts
CPT/HCPCS: 77063; 77067

== ENCOUNTER 2025-06-11 13:37 | Outpatient (CLI) | payer MEDICARE, SELFPAY ==
--- OUTSIDE RECORDS SUMMARY | 2024-02-19 11:45 | XMS_ITS ---
Author Organization [facility] [place] Address [address] [facility] [address] [facility] [address] [place] [id number] Care Team Providers Care Fundraising Sale Representative Name Role Phone Yannick Jain Primary Care Provider Allergies Allergen (clinical drug ingredient) Drug/Non Drug Allergy documented on EMR Reaction Allergy Type Onset Date Status Aleve Unknown Drug Allergy Active acetaminophen / oxycodone Percocet Unknown Drug Allergy Active codeine Codeine sick to stomach Drug Allergy A ctive REASON FOR VISIT 4 week f/u Medications Medication SIG (Take, Route, Frequency, Duration) Notes Start Date End Date Status Primidone 50 MG 1 tab(s) orally twic e a day; Duration: 90 days Active Potassium Chloride ER 10 MEQ TAKE 1 BY M OUTH ONCE DAILY; Duration: 90 days Active Triamterene-HCTZ 37.5-25 MG 1 tab(s) ora lly once a day; Duration: 90 days Active Allopurinol 100 MG 1 tab(s) orally once a day; Duration: 90 days Active Spironolactone 25 MG 1 tab(s) orally onc e daily; Duration: 90 days Active NexIUM 24HR 20 MG 1 cap(s) orally once a day (in the morning) Active Aspirin Adult Low Dose 81 MG 1 tab(s) or ally once a day Active Montelukast Sodium 10 MG 1 tab(s) orally once a day 05/27/2017 Active Atorvastatin Calcium 40 MG 1 tab(s) oral ly once a day Active Metoprolol Succinate ER 50 MG 1 tab(s) o rally once a day; Duration: 30 day(s) Active Terbinafine HCl 250 MG 1 tablet Orally O nce a day; Duration: 42 days 02/19/2024 Active Losartan Potassium 50 MG 1 tablet Orally Once a day; Duration: 30 day(s) Active Gabapentin 300 MG 1 cap(s) orally 2 times a day 12/22/2023 Active Hydroxychloroquine Sulfate 2 00 MG 1 tab twice daily Active traMADol HCl 50 MG 1 tablet as needed Orally three times a day as needed 07/10/2023 Active Problems Problem Type SNOMED Code ICD Code Onset Dates Problem Status W/U Status Risk Notes Problem Onychomycosis ([id number]) Onychomycosis (B35.1) Active confirmed Vital Signs Blood pressure systolic 120 mm Hg 02/19/20 24 Blood pressure diastolic 72 mm Hg 024 Heart Rate 70 /min 02/19/2024 Height 65.25 in 02/19/2024 Weight 256.0 lbs 02/19/2024 BMI 42.27 kg/m2 02/19/2024 Encounters Encounter Location Date Provider Diagnosis [facility] [place] [address] [facility] [address] [place] [phone] 02/19/2024 Yannick Jain Degenerative disc disease, lumbar M51.36 ; Lumbar facet joint pain M54.5 ; Other chronic pain G89.29 and Onychomycosis B35.1 Assessments Encounter Date Diagnosis (ICD Code) Assessment Notes Treatment Notes Treatment Clinical Notes Section Notes 02/19/2024 Degenerative disc disease, lumbar (ICD-10 - M51.36) 02/19/2024 Lumbar facet joint pain (ICD-10 - M54.5) 02/19/2024 Other chronic pain (ICD-10 - G89.29) 02/19/2024 Onychomycosis (ICD-10 - B35.1) Plan Of Treatment Medication Medication Name Sig Start Date Stop Date Notes Terbinafine HCl 250 MG 1 tablet Orally O nce a day; Duration: 42 days 02/19/2024 Next Appt Details Follow Up: 6 weeks, Reason: Provider Name:Yannick Luna er, 06/26/2025 03:15:00 PM, [address] [facility], [address], [place], [phone], Progress Notes * TJ MARTINEZOB:[birth year] (70 yo F)Acc No.[id number]:02/19/2024 Patient: RADHA CAM Provider: Yannick Jain M.D. :1955 A ge:69 Y S ex:Female Date:02/19/2024 Address:[address] [place] [address] [address] [place] [id number] Subjective: * Chief Complaints: * 1 . 4 week f/u. * HPI: L ower back: The patient is here for a follow up on low back pain. Pt states the increase in Gabapentin did not help. Pt the pain is about the same as before. Was seen at Dr. Hightower's 2 weeks ago. Had x-ray and is scheduled for MRI tomorrow. Dr. Hightower will see her in April. * ROS: D ERMATOLOGY: no R margareth. n o H meng. G ASTROENTEROLOGY: no N ausea. n o V omiting. n o D iarrhea.? U ROLOGY: no D ifficulty urinating. n o B lood in urine. * Medical History: E sophageal reflux, Diverticulosis, Hypertension, Right hip dysplasia or avascular necrosis, Shingrix #1 10/17/2018, Mammoram 12/2018, Echocardiogram 05/26/2020 EF=55%, Positive [place]ENTINA 2008, 01/08/24 Normal bone density. * Surgical History: k idney stone removal , cholecystectomy , tubal ligation , Total R hip replacement 06-09-09, Echo and stress test 01/07/15, Angiogram 01/12/15, COVID screening: negative 01/15/2020, [facility]oscopy at [facility] Dr. 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 Reddy . * Hospitalization/Major Diagno stic Procedure: H ER- pain in right hip 12/14/08. * Family History: F ather: , hypertension. M other: , cancer- Non- Hodgkins Lymphoma. P aternal Grand Father: lung cancer. P aternal Grand Mother: heart disease. S iblings: multiple myeloma. C hildren: mucle disease. 1 brother(s) , 11 sister(s) . 1 son(s) , 3 daughter(s) . . * Social History: C URRENT TOBACCO USE S moking Status: P atient does NOT smoke. C affeine: yes, frequency:occasional. Marital Status: Single. Occupation: [employer]. Past smoking status: no. Alcohol: No. * Medications: T aking Hydroxychloroquine Sulfate 200 MG Tablet 1 tab twice daily , Taking Losartan Potassium 50 MG Tablet 1 tablet Orally Once a day , Taking Metoprolol Succinate ER 50 MG Tablet Extended Release 24 Hour 1 tab(s) orally once a day , Taking Aspirin Adult Low Dose 81 MG Tablet Delayed Release 1 tab(s) orally once a day , Taking NexIUM 24HR 20 MG Capsule Delayed Release 1 cap(s) orally once a day (in the morning) , Taking Atorvastatin Calcium 40 MG Tablet 1 tab(s) orally once a day , Taking Montelukast Sodium 10 MG Tablet 1 tab(s) orally once a day , Taking Potassium Chloride ER 10 MEQ Tablet Extended Release TAKE 1 BY MOUTH ONCE DAILY , Taking Primidone 50 MG Tablet 1 tab(s) orally twice a day , Taking Allopurinol 100 MG Tablet 1 tab(s) orally once a day , Taking Triamterene-HCTZ 37.5-25 MG Tablet 1 tab(s) orally once a day , Taking Spironolactone 25 MG Tablet 1 tab(s) orally once daily , Taking Gabapentin 300 MG Capsule 1 cap(s) orally 2 times a day , Taking traMADol HCl 50 MG Tablet 1 tablet as needed Orally three times a day as needed , Medication List reviewed and reconciled with the patient * Allergies: A leve, Percocet, Codeine: sick to stomach. Objective: * Vitals: W t:256.0, Temp:98.3, BP:120/72, HR:70, Nurse:DAKOTAH, Ht: 65.25, BMI:42.27. * Examination: G eneral Examination: General Appearance: N AD, note weight gain. H EENT:?unremarkable. O ral cavity: n o lesions, mucosa moist and WNL, no erythema. N marisol: ?supple, no lymphadenopathy. C hest: n ormal shape and expansion. H eart: R SR. Lungs: c lear to auscultation. A bdomen: obese, soft and nontender. N eurologic Exam: I ntact, gait normal. S kin: n ormal, no rash. P eripheral pulses: n ormal . E xtremities: n o leg edema, some osteoarthritic changes of the knees. Left great toenail with fungal changes . Assessment: * Assessment: 1. D egenerative disc disease, lumbar - M51.36 (Primary) 2 . L umbar facet joint pain - M54.5 3 . O ther chronic pain - G89.29 4 . O nychomycosis - B35.1 Plan: * Treatment: * Follow Up: 6 weeks * Images: Billing Information: * Visit Code: 00606 Office Visit, Est Pt., Level 3. * Procedure Codes: * Electronic signature of Yannick Jain MD on 06/11/2025 at 02:23 PM EDT Sign off status: Pending * Provider: Yannick Jain M.D. Date: 0 02/19/2024 Generated for Printi ng/Facosmeg/eTransmitting on: 02:23 PM EDT History and Physical Notes * Examination Category Sub-Category Detail Notes Category Not es General Examination HEENT: unremarkable Heart: RSR Lungs: clear to auscultatio n Abdomen: obese, soft and nont ella Extremities: no leg edema, some o steoarthritic changes of the knees. Left great toenail with fungal changes General Appearance: NAD, note weight gai n Skin: normal, no rash Neurologic Exam: Intact, gait normal Neck: supple, no lymphaden opathy Oral cavity: no lesions, mucosa m oist and WNL, no erythema Peripheral pulses: normal Chest: normal shape and exp ansion
--- OUTSIDE RECORDS SUMMARY | 2024-03-21 11:30 | XMS_ITS ---
Author Organization [facility] Address [address] [place] [id number] Care Team Providers Care Stain Applicator Name Role Phone Yannick Jain Primary Care Provider Allergies Allergen (clinical drug ingredient) Drug/Non Drug Allergy documented on EMR Reaction Allergy Type Onset Date Status Aleve Unknown Drug Allergy Active acetaminophen / oxycodone Percocet Unknown Drug Allergy Active codeine Codeine sick to stomach Drug Allergy A ctive Results Component Value Reference Range Notes P-Comprehensive Metabolic Pa alysha (CMP) Reviewed date:03/27/2024 09:46:32 AM Interpretation:alk phos 146 Performing Lab: Notes/Report: Test performed by [facility] [address] [place] [address] , [address], [place] [address] Jung Jc MD, Noc Analyst CLIA: [id number] Sodium 135 135-145 mmol/L Potassium 4.7 3.5-5.3 mmol/L Hemolysis present. Results should be interpreted in conjunction with clinical presentation and history. Chloride 98 97-108 mmol/L CO2 26 22-32 mmol/L Glucose 89 65-99 mg/dL BUN 18 8-23 mg/dL Creatinine 0.87 0.50-1.00 mg/dL Calcium 9.8 8.6-10.4 mg/dL eGFR by Creatinine 71 >59 mL/min/1.73m2 Protein 7.5 6.0-8.3 g/dL Albumin 4.0 3.5-5.3 g/dL Alkaline Phosphatase 146 35-121 IU/L ALT (SGPT) 17 <5-47 IU/L AST (SGOT) 25 <5-40 IU/L Bilirubin, Total 0.3 <0.2-1.2 mg/dL A/G Ratio 1.1 1.1-2.5 mg/dL REASON FOR VISIT 1 month f/u Medications Medication SIG (Take, Route, Frequency, Duration) Notes Start Date End Date Status traMADol HCl 50 MG 1 tablet as needed Orally three times a day as needed 07/10/2023 Active Gabapentin 300 MG 1 cap(s) orally 2 times a day 12/22/2023 Active Allopurinol 100 MG 1 tab(s) orally once a day; Duration: 90 days Active Spironolactone 25 MG 1 tab(s) orally onc e daily; Duration: 90 days Active Triamterene-HCTZ 37.5-25 MG 1 tab(s) ora lly once a day; Duration: 90 days Active Primidone 50 MG 1 tab(s) orally twic e a day; Duration: 90 days Active Atorvastatin Calcium 40 MG 1 tab(s) oral ly once a day Active NexIUM 24HR 20 MG 1 cap(s) orally once a day (in the morning) Active Potassium Chloride ER 10 MEQ TAKE 1 BY M OUTH ONCE DAILY; Duration: 90 days Active Montelukast Sodium 10 MG 1 tab(s) orally once a day 05/27/2017 Active Metoprolol Succinate ER 50 MG 1 tab(s) o rally once a day; Duration: 30 day(s) Active Losartan Potassium 50 MG 1 tablet Orally Once a day; Duration: 30 day(s) Active Aspirin Adult Low Dose 81 MG 1 tab(s) or ally once a day Active Terbinafine HCl 250 MG 1 tablet Orally O nce a day; Duration: 42 days 02/19/2024 Active Hydroxychloroquine Sulfate 2 00 MG 1 tab twice daily Active Vital Signs Blood pressure systolic 120 mm Hg 03/21/20 24 Blood pressure diastolic 70 mm Hg 024 Heart Rate 62 /min 03/21/2024 Height 65.25 in 03/21/2024 Weight 255.6 lbs 03/21/2024 BMI 42.20 kg/m2 03/21/2024 Encounters Encounter Location Date Provider Diagnosis [facility] [address] [facility] [address] [place] [phone] 03/21/2024 Yannick Jain Onychomycosis of toenail B35.1 Assessments Encounter Date Diagnosis (ICD Code) Assessment Notes Treatment Notes Treatment Clinical Notes Section Notes 03/21/2024 Onychomycosis of toenail (ICD-10 - B35.1) Plan Of Treatment Next Appt Details Follow Up: 6 Weeks, Reason: Provider Name:Yannick Luna er, 06/26/2025 03:15:00 PM, [address] [facility] [address], [place], [place], [phone], Progress Notes * JAREK MARTINEZINEDOB:[birth year] (70 yo F)Acc No.[id number]:03/21/2024 Progress Notes Patient: RADHA CAM Provider: Yannick Jain M.D. :1955 A ge:69 Y S ex:Female Date:03/21/2024 Address:[address] [place] [address] [address] [id number] Subjective: * Chief Complaints: * 1 . 1 month f/u. * HPI: D ermatology: The pt is here for a follow up on left great toe nail fungus. Pt states she has been taking the Terbinafine and denies any medication side effects. * ROS: D ERMATOLOGY: no R margareth. [...] 01/12/15, COVID screening: negative 01/15/2020, Colonoscopy at [facility] Dr. 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 Reddy . * Hospitalization/Major Diagno stic Procedure: H MH ER- pain in right hip 12/14/08. * [...] affeine: yes, frequency:occasional. Marital Status: Single. Occupation: [employer]. Past smoking status: no. Alcohol: No. * [...] three times a day as needed , Taking Terbinafine HCl 250 MG Tablet 1 tablet Orally Once a day , Medication List reviewed and reconciled with the patient * Allergies: A leve, Percocet, Codeine: sick to stomach. Objective: * Vitals: W t:255.6, Temp:98.0, BP:120/70, HR:62, Nurse:DAKOTAH, Ht: 65.25, BMI:42.20. * Examination: G eneral Examination: General Appearance: [...] fungal changes . Assessment: * Assessment: 1. O nychomycosis of toenail - B35.1 (Primary) Plan: * Treatment: Value Reference Range A /G Ratio 1.1 1.1-2.5 - mg/dL * A lbumin 4.0 3.5-5.3 - g/dL * A lkaline Phosphatase 146 H 35-121 - IU/L * A LT (SGPT) 17 <5-47 - IU/L * A ST (SGOT) 25 <5-40 - IU/L * B ilirubin, Total 0.3 <0.2-1.2 - mg/dL * B UN 18 8-23 - mg/dL * C alcium 9.8 8.6-10.4 - mg/dL * C hloride 98 97-108 - mmol/L * C O2 26 22-32 - mmol/L * C reatinine 0.87 0.50-1.00 - mg/dL * G lucose 89 65-99 - mg/dL * P otassium 4.7 3.5-5.3 - mmol/L * S odium 135 135-145 - mmol/L * P rotein 7.5 6.0-8.3 - g/dL * e GFR by Creatinine 71 >59 - mL/min/1.73m2 * Argelia Zepeda 03/27/2024 9:46:2 5 AM >See phone encounter * Follow Up: 6 Weeks * Images: Billing Information: * Visit Code: 98762 Office Visit, Est Pt., Level 3. * Procedure Codes: * Electronic signature of Yannick Jain MD on 06/11/2025 at 02:20 PM EDT Sign off status: Pending * Provider: Yannick Jain M.D. Date: 0 03/21/2024 Generated for Printi ng/Faxing/eTransmitting on: 02:20 PM EDT History and Physical Notes * [...]
--- OUTSIDE RECORDS SUMMARY | 2024-05-20 06:30 | XMS_ITS ---
Author Organization [facility] Address [address] [facility] [address] [place] [id number] Care Team Providers Care Field Checker Name Role Phone Yannick Jain Primary Care [...] 05/20/2024 Encounters Encounter Location Date Provider Diagnosis [facility] [address] [facility] [address] [facility] [address] [place] [phone] 05/20/2024 Yannick Jain Essential hypertensi on I10 [...] Appt Details Follow Up: 3 Months, Reason: Provider Name:Yannick Luna er, 06/26/2025 03:15:00 PM, [address] [facility] [address] [facility], [address], [place], [phone], Progress Notes * TJ MARTINEZOB:[birth year] (70 yo F)Acc No.[id number]:05/20/2024 Progress Notes Patient: RADHA CAM Provider: Yannick Jain M.D. :1955 A ge:69 Y S ex:Female Date:05/20/2024 Address:[address] [place], [place] [id number] [place], [id number] Subjective: * Chief Complaints: * 1 . [...] 01/12/15, COVID screening: negative 01/15/2020, Colonoscopy at [facility] Dr. 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 [...] affeine: yes, frequency:occasional. Marital Status: Single. Occupation: [email or web address]. Past smoking status: no. Alcohol: No. * [...] * Images: Billing Information: * Visit Code: 08916 Office Visit, Est Pt., Level 3. * Procedure Codes: * Electronic signature of Yannick Jain MD on 06/11/2025 at 02:19 PM EDT Sign off status: Pending * Provider: Yannick Jain M.D. Date: 0 05/20/2024 Generated for Aldeni deisi/Adithya/eTransmitting on: 02:19 PM EDT History and Physical Notes * [...]
--- OUTSIDE RECORDS SUMMARY | 2024-07-29 11:15 | XMS_ITS ---
Author Organization [facility] Address [address] [place], [place] [address] Care Team Providers Care Supervisor Abattoir Name Role Phone Yannick Jain Primary Care Provider Lydia Moseley Unavailable [phone] Allergies Allergen (clinical drug ingredient) Drug/Non Drug [...] 07/29/2024 Encounters Encounter Location Date Provider Diagnosis [facility] [address] [place] [phone] 07/29/2024 Ldyia Moseley URI (upper respirato ry infection) J06.9 [...] Follow Up: 1 Week with labs, Reason: Provider Name:Yannick Luna er, 06/26/2025 03:15:00 PM, [address] [facility] [address], [place], [place], [id number], Progress Notes * MICHELLE TJOB:[birth year] (70 yo F)Acc No.[id number]:07/29/2024 Progress Notes Patient: RADHA CAM Provider: ADELA Damon :1955 A ge:69 Y S ex:Female Date:07/29/2024 Address:[address] [facility] [address], [id number] Pcp:Yannick Jain Subjective: * Chief Complaints: * [...] 01/12/15, COVID screening: negative 01/15/2020, Colonoscopy at [facility] Dr. 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 [...] URRENT TOBACCO USE S moking Status: P jessica does NOT smoke. C affeine: yes, frequency:occasional. Marital Status: Single. Occupation: [employer]. Past smoking status: no. Alcohol: No. * [...] > Provider reviewed results while patient in office.LoreleiLydia 07/29/2024 7:44:22 PM > * Procedure Codes: 8 7804 Flu Test- Nasal Swab, Modifiers: QW , 09125 STREP A ASSAY W/OPTIC, Modifiers: QW , 20395 COVID TEST IN HOUSE, Modifiers: QW * Follow Up: 1 Week with labs * Images: Billing Information: * Visit Code: 43404 Office Visit, Est Pt., Level 3. * Procedure Codes: 43390 Flu Test- Nasal Swab. Modifiers: QW 41141 STREP A ASSAY W/OPTIC. Modifiers: QW 81044 COVID TEST IN HOUSE. Modifiers: QW * Electronic signature of Aydee garcia ADAMARIS Moseley on 06/11/2025 at 02:21 PM EDT Sign off status: Pending * Provider: ADELA Damon Date: 1 09/29/2023 Generated for Nile lipscomb/Adithya/eTdenis on: 02:21 PM EDT History and Physical Notes * HPI (History [...]
--- OUTSIDE RECORDS SUMMARY | 2024-08-05 09:30 | XMS_ITS ---
Author Organization [facility] Address [address] [facility] [address] [place] [id number] Care Team Providers Care Nursing Specialist Name Role Phone Yannick Jain Primary Care Provider Lydia Moseley Unavailable [phone] Allergies Allergen (clinical drug ingredient) Drug/Non Drug Allergy documented on EMR Reaction Allergy Type Onset Date Status Aleve Unknown Drug Allergy Active acetaminophen / oxycodone Percocet Unknown Drug Allergy Active codeine Codeine sick to stomach Drug Allergy A ctive Results Component Value Reference Range Notes P-Basic Metabolic Panel (BMP ) Reviewed date:08/08/2024 01:31:20 PM Interpretation: Performing Lab: Notes/Report: Test performed by [employer] [address] [place] [address] , [address], [place] [address] Jung Jc MD, Rolled Ham Lacer CLIA: [id number] Sodium 137 135-145 mmol/L Potassium 4.2 3.5-5.3 [...] Status W/U Status Risk Notes Problem Osteoarthritis (323980828) Unspecified osteoarthritis, unspecified site (M19.90) Active confirmed Vital Signs Blood pressure systolic 120 mm Hg 08/05/20 24 Blood pressure diastolic 70 mm Hg 024 Heart Rate 73 /min 08/05/2024 Height 65.25 in 08/05/2024 Weight 258.8 lbs 08/05/2024 BMI 42.73 kg/m2 08/05/2024 Encounters Encounter Location Date Provider Diagnosis [facility] [address] [place] [id number] 08/05/2024 Lydia Moseley Essential hypertensi on I10 [...] 08/09/[address] Jain, Reason: Provider Name:Yannick Luna er, 06/26/2025 03:15:00 PM, [address], [address], [place], [place], [id number], Progress Notes * JAREK MARTINEZKEVONOB:[birth year] (70 yo F)Acc No.[id number]:08/05/2024 Patient: RADHA CAM Provider: ADELA Damon :1955 A ge:69 Y S ex:Female Date:08/05/2024 Address:[address] [place] [address] [address] [facility] Pcp:Yannick Jain Subjective: * Chief Complaints: * [...] 01/12/15, COVID screening: negative 01/15/2020, Colonoscopy at [facility] Dr. Gallegos, tubular adenoma 01/16/2020, Epidural [...] affeine: yes, frequency:occasional. Marital Status: Single. Occupation: [employer]. Past smoking status: no. Alcohol: No. * [...] > please notify pt of normal lab GioSarah john 08/08/2024 1:31:08 PM > Left message informing [...] * Images: Billing Information: * Visit Code: 05067 Office Visit, Est Pt., Level 3. * Procedure Codes: G2211 Complex e/m visit add on. * Electronic signature of Aydee jose Moseley APRN on 06/11/2025 at 02:22 PM EDT Sign off status: Pending * Provider: ADELA Damon Date: 1 10/06/2023 Generated for Nile lipscomb/Adithya/[place] on: 1 02:22 PM EDT History and Physical Notes * [...]
--- OUTSIDE RECORDS SUMMARY | 2024-08-19 09:15 | XMS_ITS ---
[facility] [address] [place] [phone] Care Team Providers Care Dog Trainer Name Role Phone Yannick Jain Primary Care [...] Risk Notes Problem Lumbar facet joint pain ([id number]) Lumbar facet joint pain (M54.59) Active confirmed Vital Signs Blood pressure systolic 120 mm Hg 08/19/20 24 Blood pressure diastolic 72 mm Hg 024 Heart Rate 62 /min 08/19/2024 Height 65.25 in 08/19/2024 Weight 262.4 lbs 08/19/2024 BMI 43.33 kg/m2 08/19/2024 Encounters Encounter Location Date Provider Diagnosis [facility] [address] [facility] [place] [facility] [address] [place] [phone] 08/19/2024 Yannick Jain Onychogryposis of toenail L60.2 [...] Name:Yannick Luna er, 06/26/2025 03:15:00 PM, [address], [place], [place], [phone], Progress Notes * JAREK MARTINEZKEVONOB:[birth year] (70 yo F)Acc No.[id number]:08/19/2024 Progress Notes Patient: RADHA CAM Provider: Yannick Jain M.D. :1955 A ge:69 Y S ex:Female Date:08/19/2024 Address:[address] [place] [address] [address] [phone] Subjective: * Chief Complaints: * 1 . [...] 01/12/15, COVID screening: negative 01/15/2020, Colonoscopy at [facility] Dr. 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 [...] affeine: yes, frequency:occasional. Marital Status: Single. Occupation: [employer]. Past smoking status: no. Alcohol: No. * [...] * Images: Billing Information: * Visit Code: 35459 Office Visit, Est Pt., Level 3. * Procedure Codes: G2211 Complex e/m visit add on. 3074F SYST BP LT 130 MM HG. 3078F DIAST BP < 80 MM HG. * Electronic signature of Yannick aJin MD on 06/11/2025 at 02:20 PM EDT Sign off status: Pending * Provider: Yannick Jain M.D. Date: 1 Generated for Printi ng/Faxing/eTransmitting on: 1 02:20 PM EDT History and Physical Notes [...]
--- OUTSIDE RECORDS SUMMARY | 2024-12-02 10:15 | XMS_ITS ---
Author Organization [facility] Address [address] [facility] [address] [place] [phone] Care Team Providers Care Automated Manufacturing Instructor Name Role Phone Yannick Jain Primary Care [...] 142 Performing Lab: Notes/Report: Test performed by [employer] [address] [place] [address] , [address], [place] [address] Jung Jc MD, [facility] CLIA: [id number] Sodium 138 135-145 mmol/L Potassium 4.4 3.5-5.3 [...] W/U Status Risk Notes Problem Morbid obesity (984761415) Morbid obesity (E66.01) Active confirmed Problem Body mass index 40+ - morbidly obese (037148125) BMI 40.0-44.9, adult (Z68.41) Active confirmed Vital Signs Blood pressure systolic 124 mm Hg 12/03/19 25 Blood pressure diastolic 80 mm Hg 025 Heart Rate 70 /min 12/02/2024 Height 65.25 in 12/02/2024 Weight 259.4 lbs 12/02/2024 BMI 42.83 kg/m2 12/02/2024 Encounters Encounter Location Date Provider Diagnosis [facility] [address] [facility] [address] [facility] [address] [place] [phone] 12/02/2024 Yannick Jain Lumbar facet joint p [...] Name:Yannick Luna er, 06/26/2025 03:15:00 PM, [address] [facility] [address] [facility], [address], [place], [phone], Progress Notes * TJ MARTINEZOB:[birth year] (70 yo F)Acc No.[id number]:12/02/2024 Progress Notes Patient: RADHA CAM Provider: Yannick Jain M.D. :1955 A ge:69 Y S ex:Female Date:12/02/2024 Address:[address] [id number] Subjective: * Chief Complaints: * 1 . [...] yes, frequency:occasional. Marital Status: Single. Occupation: [employer]. Past smoking status: no. Alcohol: No. * [...] orbid obesity - E66.01 8 . B [place] 40.0-44.9, adult - Z68.41 Plan: * Treatment: [...] * Images: Billing Information: * Visit Code: 86386 Office Visit, Est Pt., Level 4. * Procedure Codes: G2211 Complex e/m visit add on. 3074F SYST BP LT 130 MM HG. 3079F DIAST BP 80-89 MM HG. * Electronic signature of Yannick Jain MD on 06/11/2025 at 02:22 PM EDT Sign off status: Pending * Provider: Yannick Jain M.D. Date: 0 12/02/2024 Generated for Nile lipscomb/Adithya/eTtariksmitting on: 1 02:22 PM EDT History and [...]
--- OUTSIDE RECORDS SUMMARY | 2025-01-03 10:15 | XMS_ITS ---
Author Organization [facility] Address [address] [facility] [address] [facility] [address] [place] [id number] Care Team Providers Care Shell Molding Roller Blast Operator Name Role Phone Yannick Jain Primary Care Provider Boris Aguilar [phone] Allergies Allergen (clinical drug ingredient) Drug/Non Drug Allergy documented on EMR Reaction Allergy Type Onset Date Status Aleve Unknown Drug Allergy Active acetaminophen / oxycodone Percocet Unknown Drug Allergy Active codeine Codeine sick to stomach Drug Allergy A ctive REASON FOR VISIT F/U from [facility] ER Encounters Encounter Location Date Provider Diagnosis [facility] [address] [facility] [address] [facility] [address] [place] [phone] 01/03/2025 Boris Aguilar Plan Of Treatment Next Appt Details Provider Name:Yannick Luna er, 06/26/2025 03:15:00 PM, [address] [facility] [address] [facility], [address], [place], [phone], Progress Notes * JAREK MARTINEZINEDOB:[birth year] (70 yo F)Acc No.[id number]:01/03/2025 Progress Notes Patient: JAREK CAMINE Provider: Aditi Aguilar M.D. :1955 A ge:69 Y S ex:Female Date:01/03/2025 Address:[address] [facility] [address], [place] Pcp:Yannick Jain Subjective: * Chief Complaints: * 1 . F/U from [facility] ER. * ROS: D ERMATOLOGY: [...] 01/12/15, COVID screening: negative 01/15/2020, Colonoscopy at [facility] Dr. Gallegos, tubular adenoma 01/16/2020, [...] affeine: yes, frequency:occasional. Marital Status: Single. Occupation: [employer]. Past smoking status: no. Alcohol: No. * Allergies: A leve, Percocet, Codeine: sick to stomach. Objective: * Vitals: Assessment: Plan: * Treatment: * Images: Billing Information: * Visit Code: * Procedure Codes: * Electronic signature of Chayo Aguilar MD on 06/11/2025 at 02:22 PM EDT Sign off status: Pending * Provider: Aditi Aguilar M.D. Date: 0 01/03/2025 Generated for Nile lipscomb/Adithya/eTransmitting on: 1 02:22 PM EDT
--- OUTSIDE RECORDS SUMMARY | 2025-02-06 11:30 | XMS_ITS ---
Author Organization [facility] Address [address] [facility] [address] [place] [phone] Care Team Providers Care Yarder Boss Name Role Phone Yannick Jain Primary Care [...] Interpretation:satisfactory Performing Lab: Notes/Report: Test performed by [facility], [address] , [address], [place] [address] Jung Jc MD, Vacuum System Tester CLIA: [id number] Sodium 136 135-145 mmol/L Potassium 4.5 3.5-5.3 [...] Interpretation:Normal Performing Lab: Notes/Report: Test performed by [facility] [address] [place] [address] , [address], [place] [address] Jung Jc MD, Vacuum System Tester CLIA: [id number] Magnesium 1.7 1.6-2.4 mg/dL Reason For Referral [...] Status Risk Notes Problem Osteoarthritis of knee (692594643) Arthropathy of left knee (M17.12) Active confirmed Problem Hypomagnesemia (326424253) Hypomagnesemia (E83.42) Active confirmed Vital Signs Blood pressure systolic 120 mm Hg 02/07/20 25 Blood pressure diastolic 70 mm Hg 025 Heart Rate 67 /min 02/06/2025 Height 65.25 in 02/06/2025 Weight 256.6 lbs 02/06/2025 BMI 42.37 kg/m2 02/06/2025 Encounters Encounter Location Date Provider Diagnosis [facility] [address] [place] [phone] 02/06/2025 Yannick Jain Essential hypertensi on I10 [...] 06/26/2025 03:15:00 PM, [address], [address], [place], [place], [phone], Progress Notes * TJ MARTINEZOB:[birth year] (70 yo F)Acc No.[id number]:02/06/2025 Progress Notes Patient: RADHA CAM Provider: Yannick aJin M.D. :1955 A ge:70 Y S ex:Female Date:02/06/2025 Address:[address] [facility] [address] [place] Subjective: * Chief Complaints: * 1 . [...] 01/12/15, COVID screening: negative 01/15/2020, Colonoscopy at [facility] Dr. Gallegos, tubular adenoma 01/16/2020, Epidural [...] affeine: yes, frequency:occasional. Marital Status: Single. Occupation: [employer]. Past smoking status: no. Alcohol: No. * [...] * Images: Billing Information: * Visit Code: 21459 Office Visit, Est Pt., Level 4. * [...] M.D. Date: 0 02/06/2025 Generated for Nile lipscomb/Adithya/[place] on: 1 02:20 PM EDT History and [...]
--- OUTSIDE RECORDS SUMMARY | 2025-04-22 20:00 | XMS_ITS | Clinical Summary ---
Author Organization Unknown Care Team Providers Care Community Artist Name Role Phone LUKE BEAVER, KYREE Unavailable Unavailab cecilio LOPEZ STATUARY PAINTER, MOSES Unavailable Unavailable BURKE PT, BIJAL Unavailable Unavailable KWAME PT, YENI Unavailable Unavailable ZAKI PT, LATHA Unavailable Unavailable Payers Payer Name Policy Type Policy Number Effective Date Expira tion Date MEDICARE [id number] Problems Condition Name Condition Details Condition Category Status Onset Date Resolution Date Last Treatment Date Treating Clinician Comments AFTERCARE FOLLOWING JOINT REPLACEMENT SURGERY Active 04-02 00:00: 00 ACUTE KIDNEY FAILURE, UNSPECIFIED Active 04-02 00:00: 00 SYSTEMIC LUPUS ERYTHEMATOSU S, UNSPECIFIED Active 04-02 00:00: 00 RHEUMATOID ARTHRITIS, UNSPECIFIED Active 04-02 00:00: 00 CHRONIC OBSTRUCTIVE PULMONARY DISEASE, UNSPECIFIED Active 04-02 00:00: 00 GOUT, UNSPECIFIED Active 04-02 00:00: 00 ESSENTIAL (PRIMARY) HYPERTENSION Active 04-02 00:00: 00 HYPERLIPIDEM IA, UNSPECIFIED Active 04-02 00:00: 00 ESSENTIAL TREMOR Active 04-02 00:00: 00 GASTRO-ESOPH AGEAL REFLUX DISEASE WITHOUT ESOPHAGITIS Active 04-02 00:00: 00 UNSPECIFIED ASTHMA, UNCOMPLICATE D Active 04-02 00:00: 00 Oth intvrt disc degen, lum rgn w/o lum bck or lw extrm pain Active 04-02 00:00: 00 OBSTRUCTIVE SLEEP APNEA (ADULT) (PEDIATRIC) Active 04-02 00:00: 00 SPINAL STENOSIS, SITE UNSPECIFIED Active 04-02 00:00: 00 NONTOXIC SINGLE THYROID NODULE Active 04-02 00:00: 00 CARDIAC ARRHYTHMIA, UNSPECIFIED Active 04-02 00:00: 00 PREDIABETES Active 04-02 00:00: 00 PRESENCE OF LEFT ARTIFICIAL KNEE JOINT Active 04-02 00:00: 00 PRESENCE OF RIGHT ARTIFICIAL HIP JOINT Active 04-02 00:00: 00 PERSONAL HISTORY OF URINARY CALCULI Active 04-02 00:00: 00 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 Active 04-02 00:00: 00 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 SOFTWARE ARCHITECT (CURRENT) USE OF NON-STEROIDA L NON-INFLAM (NSAID) Active 04-02 00:00: 00 HISTORY OF FALLING Active 04-02 00:00: 00 Allergies, Adverse Reactions, Alerts Allergy Name Allergy Type Status Severity Reaction(s) Onset Date Inactive Date Treating Clinician Comments ALEVE Propensity to adverse reactions Active 04-02 23:15: 53 CODEINE Propensity to adverse reactions Active 04-02 23:16: 03 DARVOCET Propensity to adverse reactions Active 04-02 23:16: 12 OXYCODONE Propensity to adverse reactions Active 04-02 23:16: 22 Medications Ordered Medication Name Filled Medication Name Start Date Stop Date Current Medication? Ordering Clinician Indication Dosage Frequency Signature (SIG) Comments Components albuterol sulfate HFA 90 mcg/actuati on aerosol inhaler 03-21 00:00: 00 Yes [id number] ASTHMA 1 puff NEEDED 1 puff NEEDED (route: inhalation ) Med Classific ation: Respirato ry Therapy Agents allopurinol 100 mg tablet 03-21 00:00: 00 Yes [id number] HIGH B LOOD PRESSURE 1 tablet DAILY 1 tablet DAILY (route: oral) Med Classific ation: Gout and Hyperuric emia Therapy aspirin 81 mg tablet,marie yed release 04-01 00:00: 00 04-29 23:59 :00 No [id number] BLOOD THINNER 1 tablet 2 TIMES DAILY 1 tablet 2 TIMES DAILY (route: oral) Med Classific ation: Hematolog ical Agents atorvastati n 40 mg tablet 03-21 00:00: 00 Yes [id number] HIGH CHOLESTEROL 1 tablet DAILY 1 tablet DAILY (route: oral) Med Classific ation: Cardiovas cular Therapy Agents cefadroxil 500 mg capsule 04-01 00:00: 00 04-08 23:59 :00 No [id number] ANTIBIOTIC 1 capsule 2 TIMES DAILY 1 capsule 2 TIMES DAILY (route: oral) Med Classific ation: Anti-Infe ctive Agents coenzyme Q10 100 mg capsule 03-21 00:00: 00 Yes [id number] DEPRESSION 1 capsule DAILY 1 capsule DAILY (route: oral) Med Classific ation: Alternati ve Therapy docusate sodium 100 mg capsule 04-01 00:00: 00 Yes [id number] CONSTIPATIO N 1 capsule 2 TIMES DAILY 1 capsule 2 TIMES DAILY (route: oral) Med Classific ation: Gastroint estinal Therapy Agents esomeprazol e magnesium 20 mg capsule,del ayed release 03-21 00:00: 00 Yes [id number] REFLUX 1 capsule DAILY 1 capsule DAILY (route: oral) Med Classific ation: Gastroint estinal Therapy Agents gabapentin 600 mg tablet 03-21 00:00: 00 Yes [id number] NERVE PAIN 1 tablet BEDTIME 1 tablet BEDTIME (route: oral) Med Classific ation: Central Nervous System Agents hydroxychlo roquine 200 mg tablet 03-21 00:00: 00 Yes [id number] RHEUMATOID ARTHRITIS 1 tablet DAILY 1 tablet DAILY (route: oral) Med Classific ation: Anti-Infe ctive Agents Lactobacill us acidoph-L.b ulgaricus 1 million cell tablet 04-01 00:00: 00 04-08 23:59 :00 No [id number] PROBIOTIC 1 tablet 2 TIMES DAILY 1 tablet 2 TIMES DAILY (route: oral) Med Classific ation: Gastroint estinal Therapy Agents losartan 100 mg tablet 03-21 00:00: 00 Yes [id number] BLOOD PRESSURE 1 tablet DAILY 1 tablet DAILY (route: oral) Med Classific ation: Cardiovas cular Therapy Agents meloxicam 15 mg tablet 04-01 00:00: 00 Yes [id number] INFLAMMATIO N 1 tablet DAILY 1 tablet DAILY (route: oral) Med Classific ation: Analgesic , Anti-infl ammatory or Antipyret ic metoprolol succinate ER 50 mg tablet,exte nded release 24 hr 03-21 00:00: 00 Yes [id number] HIGH BLOOD PRESSURE 1 tablet DAILY 1 tablet DAILY (route: oral) Med Classific ation: Cardiovas cular Therapy Agents ondansetron 4 mg disintegrat ing tablet 04-01 00:00: 00 Yes [id number] NAUSEA 1 tablet NEEDED 1 tablet NEEDED (route: oral) Med Classific ation: Gastroint estinal Therapy Agents oxycodone-a cetaminophe n 5 mg-325 mg tablet 04-01 00:00: 00 Yes [id number] SURGICAL PAIN 1 tablet NEEDED 1 tablet NEEDED (route: oral) Med Classific ation: Analgesic , Anti-infl ammatory or Antipyret ic potassium chloride ER 10 mEq capsule,ext ended release 03-21 00:00: 00 Yes [id number] SUPPLEMENT 1 capsule DAILY 1 capsule DAILY (route: oral) Med Classific ation: Electroly te Balance-N utritiona l Products primidone 50 mg tablet 03-21 00:00: 00 Yes [id number] SEIZURES 1 tablet 2 TIMES DAILY 1 tablet 2 TIMES DAILY (route: oral) Med Classific ation: Central Nervous System Agents spironolact one 25 mg tablet 03-21 00:00: 00 Yes [id number] HIGH BLOOD PRESSURE 1 tablet DAILY 1 tablet DAILY (route: oral) Med Classific ation: Cardiovas cular Therapy Agents tranexamic acid 650 mg tablet 04-01 00:00: 00 04-04 23:59 :00 No [id number] POST OP BLEEDING 1 tablet 3 TIMES DAILY 1 tablet 3 TIMES DAILY (route: oral) Med Classific ation: Hematolog ical Agents triamterene 37.5 mg-hydrochl orothiazide 25 mg capsule 03-21 00:00: 00 Yes [id number] HIGH BLOOD PRESSURE 1 capsule DAILY 1 capsule DAILY (route: oral) Med Classific ation: Cardiovas cular Therapy Agents promethazin e-DM 6.25 mg-15 mg/5 mL oral syrup 03-21 00:00: 00 Yes [id number] COUGH 5 mL NEEDED 5 mL NEEDED (route: oral) Med Classific ation: Respirato ry Therapy Agents Vital Signs Vital Name Observation Time Observation Value Commen ts Temperature 2025-04-23 15:22:00.000 97.9 [degF] Temperature 2025-04-21 14:13:00.000 97.6 [degF] Temperature 2025-04-18 13:58:00.000 97.9 [degF] Temperature 2025-04-16 15:46:00.000 97.2 [degF] Temperature 2025-04-14 13:52:00.000 97.6 [degF] Temperature 2025-04-11 15:43:00.000 97.8 [degF] Temperature 2025-04-09 14:41:00.000 97.4 [degF] Temperature 2025-04-07 14:13:00.000 97.6 [degF] Temperature 2025-04-04 13:45:00.000 97.9 [degF] Temperature 2025-04-02 14:53:00.000 97.6 [degF] BMI (%) 2025-04-02 14:44:10.000 43 kg/m2 Height 2025-04-02 14:44:05.000 64 [in_us] Pulse 2025-04-23 15:22:00.000 86 /min Pulse 2025-04-21 14:13:00.000 77 /min Pulse 2025-04-18 13:58:00.000 71 /min Pulse 2025-04-16 15:46:00.000 90 /min Pulse 2025-04-14 13:52:00.000 84 /min Pulse 2025-04-11 15:43:00.000 78 /min Pulse 2025-04-09 14:41:00.000 76 /min Pulse 2025-04-07 14:13:00.000 76 /min Pulse 2025-04-04 13:45:00.000 82 /min Pulse 2025-04-02 14:53:00.000 95 /min O2 Saturation (%) 2025-04-23 15:22:00.000 98 % O2 Saturation (%) 2025-04-21 14:13:00.000 98 % O2 Saturation (%) 2025-04-18 13:58:00.000 98 % O2 Saturation (%) 2025-04-16 15:46:00.000 98 % O2 Saturation (%) 2025-04-14 13:52:00.000 95 % O2 Saturation (%) 2025-04-09 14:41:00.000 99 % O2 Saturation (%) 2025-04-07 14:13:00.000 97 % O2 Saturation (%) 2025-04-04 13:45:00.000 98 % O2 Saturation (%) 2025-04-02 14:53:00.000 98 % Respirations 2025-04-23 15:22:00.000 18 /min Respirations 2025-04-21 14:13:00.000 18 /min Respirations 2025-04-18 13:58:00.000 18 /min Respirations 2025-04-16 15:46:00.000 18 /min Respirations 2025-04-14 13:52:00.000 18 /min Respirations 2025-04-11 15:43:00.000 18 /min Respirations 2025-04-09 14:41:00.000 18 /min Respirations 2025-04-07 14:13:00.000 18 /min Respirations 2025-04-04 13:45:00.000 18 /min Respirations 2025-04-02 14:53:00.000 18 /min Weight (lbs) 2025-04-02 14:44:10.000 253 [lb_av] Systolic Blood Pressure 2025-04-23 15:22:00.000 135 mm [Hg] Systolic Blood Pressure 2025-04-21 14:13:00.000 125 mm [Hg] Systolic Blood Pressure 2025-04-18 13:58:00.000 138 mm [Hg] Systolic Blood Pressure 2025-04-16 15:46:00.000 138 mm [Hg] Systolic Blood Pressure 2025-04-14 13:52:00.000 118 mm [Hg] Systolic Blood Pressure 2025-04-11 15:43:00.000 130 mm [Hg] Systolic Blood Pressure 2025-04-09 14:41:00.000 114 mm [Hg] Systolic Blood Pressure 2025-04-07 14:13:00.000 115 mm [Hg] Systolic Blood Pressure 2025-04-04 13:45:00.000 135 mm [Hg] Systolic Blood Pressure 2025-04-02 14:53:00.000 145 mm [Hg] Diastolic Blood Pressure 2025-04-23 15:22:00.000 80 mm [Hg] Diastolic Blood Pressure 2025-04-21 14:13:00.000 80 mm [Hg] Diastolic Blood Pressure 2025-04-18 13:58:00.000 85 mm [Hg] Diastolic Blood Pressure 2025-04-16 15:46:00.000 90 mm [Hg] Diastolic Blood Pressure 2025-04-14 13:52:00.000 75 mm [Hg] Diastolic Blood Pressure 2025-04-11 15:43:00.000 84 mm [Hg] Diastolic Blood Pressure 2025-04-09 14:41:00.000 75 mm [Hg] Diastolic Blood Pressure 2025-04-07 14:13:00.000 75 mm [Hg] Diastolic Blood Pressure 2025-04-04 13:45:00.000 75 mm [Hg] Diastolic Blood Pressure 2025-04-02 14:53:00.000 70 mm [Hg] Plan of Treatment Planned Activity Planned Date Details Comments Future Scheduled Test PHYSICAL T HERAPIST TO EVALUATE/ASSESS AND DEVELOP PHYSICAL THERAPY PLAN OF CARE TO BE SIGNED BY THE PHYSICIAN. TEACH AND MONITOR PATIENT/CAREGIVER ABILITY TO SAFELY ADMINISTER MEDICATIONS. PHONE TOUCHPOINTS CAN BE PERFORMED NEEDED TO SUPPLEMENT THE PLAN OF CARE. [code = PHYSICAL THERAPIST TO EVALUATE/ASSESS AND DEVELOP PHYSICAL THERAPY PLAN OF CARE TO BE SIGNED BY THE PHYSICIAN. TEACH AND MONITOR PATIENT/CAREGIVER ABILITY TO SAFELY ADMINISTER MEDICATIONS. PHONE TOUCHPOINTS CAN BE PERFORMED NEEDED TO SUPPLEMENT THE PLAN OF CARE.] Future Scheduled Test PHYSICAL T HERAPY TO ESTABLISH/UPGRADE HOME EXERCISE PROGRAM AND PROVIDE THERAPEUTIC EXERCISES AND/OR MANUAL THERAPY TECHNIQUES DESIGNED TO RESTORE FUNCTIONAL STRENGTH AND ROM. [code = PHYSICAL THERAPY TO ESTABLISH/UPGRADE HOME EXERCISE PROGRAM AND PROVIDE THERAPEUTIC EXERCISES AND/OR MANUAL THERAPY TECHNIQUES DESIGNED TO RESTORE FUNCTIONAL STRENGTH AND ROM.] Future Scheduled Test PHYSICAL T HERAPY TO PROVIDE TECHNIQUES DESIGNED TO IMPROVE BED MOBILITY. [code = PHYSICAL THERAPY TO PROVIDE TECHNIQUES DESIGNED TO IMPROVE BED MOBILITY.] Future Scheduled Test PHYSICAL T HERAPY TO EVALUATE GAIT AND PROVIDE GAIT TRAINING USING APPROPRIATE ASSISTIVE DEVICE NEEDED TO ENSURE PATIENT SAFETY. [code = PHYSICAL THERAPY TO EVALUATE GAIT AND PROVIDE GAIT TRAINING USING APPROPRIATE ASSISTIVE DEVICE NEEDED TO ENSURE PATIENT SAFETY.] Future Scheduled Test PHYSICAL T HERAPIST TO PROVIDE INTERVENTIONS AND/OR EDUCATION REGARDING PAIN CONTROL INCLUDING MEDICATION REVIEW AND PHARMACOLOGICAL AND NON-PHARMACOLOGICAL METHODS [code = PHYSICAL THERAPIST TO PROVIDE INTERVENTIONS AND/OR EDUCATION REGARDING PAIN CONTROL INCLUDING MEDICATION REVIEW AND PHARMACOLOGICAL AND NON-PHARMACOLOGICAL METHODS] Future Scheduled Test PHYSICAL T HERAPIST TO ADMINISTER WOUND CARE TO CLOSED INCISION / SUTURE LINE LOCATED L KNEE. KEEP DRESSING ON UNTIL FOLLOW UP. MONITOR FOR SIGNS OF INFECTION OR EXCESSIVE DRAINAGE. [code = PHYSICAL THERAPIST TO ADMINISTER WOUND CARE TO CLOSED INCISION / SUTURE LINE LOCATED L KNEE. KEEP DRESSING ON UNTIL FOLLOW UP. MONITOR FOR SIGNS OF INFECTION OR EXCESSIVE DRAINAGE.] Future Scheduled Test CLINICIAN TO EDUCATE PATIENT / CAREGIVER IN FALL PREVENTION AND PROVIDE INTERVENTIONS TO REDUCE FALL RISK AND ENHANCE HOME SAFETY [code = CLINICIAN TO EDUCATE PATIENT / CAREGIVER IN FALL PREVENTION AND PROVIDE INTERVENTIONS TO REDUCE FALL RISK AND ENHANCE HOME SAFETY] Future Scheduled Test PHYSICAL T HERAPY TO INSTRUCT IN SAFE TRANSFERS WITH APPROPRIATE BODY MECHANICS AND EQUIPMENT. [code = PHYSICAL THERAPY TO INSTRUCT IN SAFE TRANSFERS WITH APPROPRIATE BODY MECHANICS AND EQUIPMENT.] Future Scheduled Test PATIENT/CA REGIVER WILL BE KNOWLEDGEABLE OF DISCHARGE PLANS AND WILL DEMONSTRATE/PROVIDE EDUCATION AND RESOURCES NEEDED TO MAINTAIN HEALTH. [code = PATIENT/CAREGIVER WILL BE KNOWLEDGEABLE OF DISCHARGE PLANS AND WILL DEMONSTRATE/PROVIDE EDUCATION AND RESOURCES NEEDED TO MAINTAIN HEALTH.] Future Scheduled Test AGENCY JULIANE L DISCHARGE PATIENT TO [facility] PHYSICIAN/HEALTH CARE PROVIDER. [code = AGENCY WILL DISCHARGE PATIENT TO [facility] PHYSICIAN/HEALTH CARE PROVIDER.] Future Scheduled Test PSYCHOSOCI AL / COGNITIVE ASSESSMENT INDICATES NO NEED FOR SOCIAL, FINANCIAL, OR TRANSPORTATION SUPPORT OR FOR ADDITIONAL CARE PROVIDERS/DISCIPLINES OR REFERRALS TO OUTSIDE ENTITIES. [code = PSYCHOSOCIAL / COGNITIVE ASSESSMENT INDICATES NO NEED FOR SOCIAL, FINANCIAL, OR TRANSPORTATION SUPPORT OR FOR ADDITIONAL CARE PROVIDERS/DISCIPLINES OR REFERRALS TO OUTSIDE ENTITIES.] Goal 2025-04-23 Patient Goal - W ALK WITH [facility] Goal Provider Goal - A PHYSICAL THERAPY PLAN OF CARE WILL BE ORDERED BY PHYSICIAN AND PROVIDED BY PHYSICAL THERAPY. ALL GOALS TO BE MET BY END OF CURRENTLY APPROVED PLAN OF CARE. Goal Provider Goal - PATIENT WILL DEMONSTRATE IMPROVED FUNCTION IN RESPONSE TO SPECIFIC EXERCISE(S) AND/OR MANUAL THERAPY TECHNIQUE(S), EVIDENCED BY INCREASED INDEPENDENCE IN ACTIVITIES OF DAILY LIVING. GOAL TO BE MET BY 06 02 25 Goal Provider Goal - PATIENT WILL DEMONSTRATE IMPROVED BED MOBILITY. GOAL TO BE MET BY06 02 25 Goal Provider Goal - PATIENT WILL DEMONSTRATE SAFE GAIT TECHNIQUE WITH ASSISTIVE DEVICES NEEDED TO MINIMIZE RISK OF INJURY. GOAL TO BE MET BY 06 02 25 Goal Provider Goal - PATIENT/CAREGIVER WILL ACHIEVE EFFECTIVE PAIN CONTROL AND DEMONSTRATE UNDERSTANDING OF BOTH PHARMACOLOGIC AND NON-PHARMACOLOGIC PAIN CONTROL METHODS. GOAL TO BE MET BY 06 02 25 Goal Provider Goal - PATIENT WILL DEMONSTRATE IMPROVED INCISION/SUTURE SITE STATUS EVIDENCED BY DECREASE IN SIZE/DRAINAGE OF WOUND, NO S/S OF INFECTION, AND DECREASED PAIN A RESULT OF SKILLED INTERVENTION. GOAL TO BE MET BY 06 02 25 Goal Provider Goal - PATIENT TO DEMONSTRATE REDUCED FALL RISK AND IMPROVE HOME SAFETY BY 06 02 25 Goal Provider Goal - PATIENT / CAREGIVER WILL DEMONSTRATE SAFE TRANSFERS USING APPROPRIATE BODY MECHANICS AND EQUIPMENT. GOAL TO BE MET BY 06 02 25 Goal Provider Goal - PATIENT AND/OR CAREGIVER WILL BE IN AGREEMENT WITH DISCHARGE PLANS AND WILL VERBALIZE HAVING RESOURCES AND KNOWLEDGE TO MAINTAIN HEALTH. Goal Provider Goal - PATIENT WILL REMAIN SAFE AND NEEDS WILL BE MET BY COMMUNICATING CHANGES IN POC WITH PATIENT/CAREGIVER AND THE APPROPRIATE PHYSICIAN(S) WRITING ORDERS ON THE POC AND COMMUNICATING WITH RECEIVING PHYSICIANS/HEALTH CARE PROVIDER WHEN THERE ARE CHANGES IN THE DISCHARGE PLAN THROUGHOUT THE EPISODE OF CARE. Goal Provider Goal - PATIENT/CAREGIVER VERBALIZES AND DEMONSTRATES ABILITY FOR THE PATIENT TO FUNCTION WITHIN THEIR COMMUNITY AND TO PARTICIPATE IN THE DEVELOPMENT AND IMPLEMENTATION OF THEIR CARE PLAN THROUGHOUT THE CERTIFICATION PERIOD. Reason for Visit INDEPENDENT IN THE COMMUNITY Encounters Start Date/Time End Date/Time Encounter Type Admission Type Attending [facility] Care Department Encounter ID Discharge Date Discharge Status Discharge Condition Discharge Reason Percent Goals Met 2025-04-02 00:00:00 2025-04-23 00:00:00 Outpatient NEW ADMISSION LATHA HAINES [facility] [id number] 00:00:00 DISCHARGE TO HOME OR SELF CARE INDEPENDEN T IN THE COMMUNITY GOALS MET 100.00
--- OUTSIDE RECORDS SUMMARY | 2025-06-05 15:45 | XMS_ITS | Encounter Summary ---
[facility] Address [address] [place] [address] Care Team Providers Care Sheet Metal Former Name Role Phone Dillan Jain MD Primary Care Provider [phone] Reason for Visit * Reason Comments Lupus Follow up Osteoarthritis Follow up Encounter Details Date Type Department Care Team (Latest Contact Info) Description 06/05/2025 3:45 PM EDT Office Visit [facility] [address] [phone] DO [address] [phone] Systemic lupus erythematosus, unspecified SLE type, unspecified [...] sent through Care Everywhere. * Hydroxychloroquine Tablets (Armenian) documented in this encounter Progress Notes * Derrick Way DO - 06/05/2025 3:45 PM EDTAssociated Problem(s): SLE (systemic lupus erythematosus) * 2008: VALENTINA 1:80 speckled * 10/25/22: VALENTINA positive, DS DNA 26 (0-4), Longo negative, SSA and SSB Normal, MATHEMATICAL SCIENTIST normal, chromatin normal, Renetta 1 normal, Centromere normal, SCL 70 normal, Ribosomal P Normal, ESR 46 (0-30) * Medications/treatments/interventions tried include: Tylenol, Advil, meloxicam, she saw Jayson Pack MD (Librarian Assistant) in 2008, She has seen an orthopaedic [...] (0-4), Longo negative, SSA and SSB Normal, MATHEMATICAL SCIENTIST normal, chromatin normal, Renetta 1 normal, Centromere normal, SCL 70 normal, Ribosomal P Normal, ESR 46 (0-30) * Medications/treatments/interventions tried include: Tylenol, Advil, meloxicam, she saw Jayson Pack MD (Librarian Assistant) in 2008, She has seen an orthopaedic [...] 6 months (around 12/04/2025). Derrick Way DO [facility] [place] documented in this encounter Plan of Treatment Upcoming Encounters Date Type Department Care Team (Late st Contact Info) Description 12/08/2025 2:45 PM EDT Office Visit [facility] [address] [phone] DO [address] [phone] Scheduled Orders Name Type Priority Associated Diagnoses Orde r Schedule C4+C3 Lab Routine Systemic lupus erythematosus, unspecified SLE type, unspecified organ involvement status High risk medication use Primary osteoarthritis involving multiple joints Other fatigue Expected: 06/13/2025 (Approximate), Expires: 09/06/2026 Anti-DNA Antibody, Double-stranded Lab Routine Systemic lupus erythematosus, unspecified SLE type, unspecified organ involvement status High risk medication use Primary osteoarthritis involving multiple joints Other fatigue Expected: 06/13/2025 (Approximate), Expires: 09/06/2026 CBC Auto Differential Lab Routine Systemic lupus erythematosus, unspecified SLE type, unspecified organ involvement status High risk medication use Primary osteoarthritis involving multiple joints Other fatigue Expected: 06/13/2025 (Approximate), Expires: 09/06/2026 CK Lab Routine Systemic lupus erythematosus, unspecified SLE type, unspecified organ involvement status High risk medication use Primary osteoarthritis involving multiple joints Other fatigue Expected: 06/13/2025 (Approximate), Expires: 09/06/2026 Comprehensive Metabolic Panel Lab Routine Systemic lupus erythematosus, unspecified SLE type, unspecified organ involvement status High risk medication use Primary osteoarthritis involving multiple joints Other fatigue Expected: 06/13/2025 (Approximate), Expires: 09/06/2026 UA / M With / Rflx Culture([facility] ONLY) - Urine, Clean Catch Lab Routine Systemic lupus erythematosus, unspecified SLE type, unspecified organ involvement status High risk medication use Primary osteoarthritis involving multiple joints Other fatigue Expected: 06/13/2025 (Approximate), Expires: 09/06/2026 documented as of this encounter Visit Diagnoses Diagnosis Systemic lupus erythematosus, unspecified SLE type, unspecified organ involvement status- Primary High risk medication use Primary osteoarthritis involving multiple joints Other fatigue documented in this encounter Care Teams Sheet Metal Former Relationship Specialty Start Date End Date Dillan Jain MD [address] [place] [facility] [address] [facility] [address] [place] [address] PCP - General Family Medicine 05/28/24 documented as of this encounter
--- OUTSIDE RECORDS SUMMARY | 2025-06-11 14:20 | XMS_ITS | Continuity of Care Document ---
Author Organization [facility], ORTHOPEDICS [address] [place] [address] Care Team Providers Care Cash Teller Name Role Phone ABDI GUTIÉRREZ Primary Care Provider ABDI GUTIÉRREZ Referring Provider KYREE BUTLER Orthopedic Surgeon [phone] Assessment Encounter Date Assessment Date Assessment LastModified by Organization Details LastModified Time 04/22/2025 04/22/2025 Patient is 3 weeks post op Left TKA. Patient reports they are doing well overall. We reviewed recovery and expectations at 3 weeks post operatively, answered all questions and concerns. Incision looks great, healing as expected. Ok to get incision wet, but will hold on submersion for a total of 6 weeks postoperatively. Patient finishing up home physical therapy program. She is not wanting to continue outpatient physical therapy at this time. I had a long discussion with her that outpatient physical therapy can help her strengthen the lower extremity and increase stamina as well as attempt to come off the rollator. Due to transportation and previous experiences with physical therapy, she is opting not to do outpatient PT today. I strongly encouraged continuation of the home exercise program to maintain range of motion and strength. Patient was agreeable Radiographs obtained today reveal intact Left TKA implants in good positioning and alignment, with no evidence of loosening, lysis or RLLs. Physical exam reveals good ROM without pain and a well-healed surgical incision. We reviewed the expected progression of recovery and rehabilitation from a total knee replacement and explained that mild to moderate nighttime aching and morning stiffness are not uncommon and are within expectations at this point post-operatively. These symptoms should resolve over the coming months as they build strength and stamina. Continue aspirin twice daily for 1 more week for DVT prophylaxis. Continue tramadol/Tylenol as needed for pain. RTC in 3 weeks for routine 6 week post op follow up with radiographs. [email or web address] Not available 04/22/2025 10:46:41 Plan of Treatment Reminders Order Date Submit Date Provider Last Modified By Organization Details Last Modified Time Details Appointments RECHECK 2024 03:00P M SHANNAN VEE PA-C Not available Not available Not available Lab None recorded . Referral None recorded . Procedures None recorded . Surgeries None recorded . Imaging None recorded . Medication Orders None recorded . Patient TargetsNo targets recorded. Patient InstructionsNo instructions recorded. Reason for Referral None Reported. Results Created Date Observation Date Name Description Value Unit Range Abnormal Flag Note LastModifiedBy Organization Detail LastModifiedTime 04/22/2004/22/2025 XR, knee, 3 view [facility] [address] [place] [address] [phone] Patien t Name: JAREK PIERSON Kalpanakyra johnson : 951 Patien t 51 Orderi ng Provid er: SHANNAN VEE EXAM DATE: 2024 EXAM: XR LT KNEE 3 VIEWS COMPAR PATRICIA: 02/27/20 HISTOR Y: Follow -up of prior surger gloria WILLS GS: There has been interv al placem ent of a left knee total arthro plasty . There is no eviden ce of loosen ing. No fractu re is identi fied. Contra latera l knee: There are modera te degene rative change s. IMPRES GREG: 1. There is a left total knee arthro plasty in place withou t eviden ce of loosen ing. Interp reted By: Audelia cheung MD Electr onical ly Signed By: Audelia cheung MD on 04/22/20 10:09 AM [email or web address] [facility] Radiology [address] [place], [address], 04/22/2025 13:01:57 05/20/2005/14/2025 XR, knee, 3 view [facility] [address] [place] [phone] Jacobo t Name: JAREK johnson : 9[birth year] Jacobo johnson 51 Claribel ng Provid er: SHANNAN VEE EXAM DATE: 2024 EXAM: XR LT KNEE 3 VIEWS COMPAR PATRICIA: Septem 2024 HISTOR Y: Follow -up left total knee arthro plasty Proced ure: Multip le views of the left knee were perfor med FINDIN GS: There is no acute fractu re or disloc ation. Cortic al margin s are within normal limits . There is a total knee arthro plasty , well seated and unchan ged Contra latera l knee: Arthri tis IMPRES GREG: No acute osseou s findin gs or signif icant change s Interp reted By: Roldan Orona MD Electr onical ly Signed By: Roldan Orona MD on 025 8:[address] Radiology [address] [place], [phone], 05/21/2025 08:20:59 Result Notes Documentation Provider Name and Address Organization Details Recorded Time Xr, Knee, 3 View : [facility] [address] [place] [address] Patient Name: SANJANA PIERSON Patient : [id number] Patient Ordering Provider: SHANNAN VEE EXAM DATE: 04/22/2025 EXAM: XR LT KNEE 3 VIEWS COMPARISON: 02/26/2025 HISTORY: Follow-up of prior surgery. FINDINGS: There has been interval placement of a left knee total arthroplasty. There is no evidence of loosening. No fracture is identified. Contralateral knee: There are moderate degenerative changes. IMPRESSION: 1. There is a left total knee arthroplasty in place without evidence of loosening. 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 Procedures Surgical History Date Name Laterality Status Provider Name and Address Organization Details Recorded Time 5 total replacement of left knee joint completed Cathy Gill [facility] 04/22/2025 08:14:17 PCM Visit completed Tamiko Johnson [facility] 04/14/2025 14:21:58 total replacement of right hip joint completed [facility] 03/04/2025 15:24:13 Imaging Results None recorded. Procedure Notes None recorded. Medical Equipment None Reported. Allergies Allergen ID Allergen Name Allergen Category Reaction Reaction Severity Criticality Documentation Date Start Date Code Code System Note Provider Name and Address Organization Details Recorded Time 492181 codeine medicatio n Not available Not available Not available 05/06/2024 2670 RxNorm Tamra Domonique [facility] 4 09:35:48 [id number] naproxen medicatio n Not available Not available Not available 05/06/2024 7258 RxNorm Tamra Domonique [facility] 4 09:35:54 Medications Name Sig Start Date Stop Date Status Note LastModified by Organization Details LastModified Time losartan 50 mg tablet TAKE 1 TABLET BY MOUTH ONCE DAILY active Not Available Not Available No t Available celecoxib 200 mg capsule TAKE 1 CAPSULE BY MOUTH ONCE DAILY WITH FOOD 02/26 completed Not Available Not Available Not Available atorvastati n 40 mg tablet TAKE 1 TABLET BY MOUTH ONCE DAILY active Not Available Not Available No t Available primidone 50 mg tablet TAKE 1 TABLET BY MOUTH TWICE DAILY active Not Available Not Available No t Available promethazin e-DM 6.25 mg-15 mg/5 mL oral syrup TAKE 5 ML BY MOUTH EVERY 6 HOURS NEEDED FOR COUGH 03/04 completed Not Available Not Available Not Available gabapentin 600 mg tablet Take 1 tablet as needed by oral route at bedtime. active Not Available Not Available No t Available azithromyci n 250 mg tablet TAKE 2 TABLETS BY MOUTH ON DAY 1, AND THEN TAKE 1 TABLET BY MOUTH ONCE A DAY ON DAY 2 THROUGH DAY 5 03/04 completed Not Available Not Available Not Available metoprolol succinate ER 50 mg tablet,exte nded release 24 hr TAKE 1 TABLET BY MOUTH ONCE DAILY active Not Available Not Available No t Available potassium chloride ER 10 mEq tablet,exte nded release TAKE 1 TABLET BY MOUTH ONCE DAILY active Not Available Not Available No t Available allopurinol 100 mg tablet TAKE 1 TABLET BY MOUTH ONCE DAILY active Not Available Not Available No t Available tramadol 50 mg tablet TAKE 1 TABLET BY MOUTH THREE TIMES DAILY NEEDED active Not Available Not Available No t Available spironolact one 25 mg tablet TAKE 1 TABLET BY MOUTH ONCE DAILY active Not Available Not Available No t Available meloxicam 7.5 mg tablet Take 1 tablet every day by oral route with meal(s) for 30 days, for knee pain. 2024 active Not Available Not Available Not Avai lable oxycodone-a cetaminophe n 5 mg-325 mg tablet TAKE 1 TABLET BY MOUTH EVERY 4 HOURS NEEDED FOR PAIN 05/14 completed Not Available Not Available Not Available terbinafine HCl 250 mg tablet TAKE 1 TABLET BY MOUTH ONCE DAILY FOR 42 DAYS 05/14 completed Not Available Not Available Not Available meclizine 25 mg tablet TAKE 1 TABLET BY MOUTH TWICE DAILY NEEDED FOR DIZZINESS 05/14 completed Not Available Not Available Not Available gabapentin 300 mg capsule TAKE 1 CAPSULE BY MOUTH TWICE DAILY 03/04 completed Not Available Not Available Not Available triamterene 37.5 mg-hydrochl orothiazide 25 mg tablet TAKE 1 TABLET BY MOUTH ONCE DAILY active Not Available Not Available No t Available montelukast 10 mg tablet TAKE 1 TABLET BY MOUTH ONCE DAILY active Not Available Not Available No t Available ammonium lactate 12 % topical cream APPLY CREAM TOPICALLY TWICE DAILY FOR DRY SKIN 03/04 completed Not Available Not Available Not Available hydroxychlo roquine 200 mg tablet TAKE 1 TABLET BY MOUTH TWICE DAILY active Not Available Not Available No t Available methylpredn isolone 4 mg tablets in a dose pack TAKE BY MOUTH DIRECTED ON INSIDE OF PACKAGE 03/04 completed Not Available Not Available Not Available albuterol sulfate HFA 90 mcg/actuati on aerosol inhaler INHALE 1 PUFF BY MOUTH EVERY 4 HOURS NEEDED active Not Available Not Available No t Available diclofenac 1.5 % topical drops APPLY TO AFFECTED NAILS BEFORE USING SOLUTION/ OINTMENT TREATMENT (30 DAY SUPPLY) 03/04 completed Not Available Not Available Not Available Clenpiq 10 mg-3.5 gram-12 gram/175 mL oral solution TAKE 175 ML BY MOUTH AT 5-9 PM EVENING BEFORE COLONOSCO PY THEN TAKE 2ND DOSE THE NEXT DAY APPROXIMA TELY 5 HOURS BEFORE COLONOSCO PY 03/12 completed Not Available Not Available Not Available Vitals Date Recorded Body height Body mass index (BMI) Body weight Provider Name and Address Organization Details Last Updated DateTime 04/22/2025 162.56 cm 43.4 kg/m2 214822.87 g Justine Reese [facility] 04/22/2025 09:47:34 Social History Question Answer Notes LastModified by [employer] Details LastModified Time Tobacco Smoking Status Never Smoker Cathy panchal [facility] 03/04/2025 15:19:07 What Was The Date Of Your Most Recent Tobacco Screening? 03/04/2025 Information not available 03/04/2025 Has Tobacco Cessation Counseling Been Provided? No [email or web address] Information not available 03/04/2025 Sex: Female Functional Status Question Answer Note LastModified by [employer] Details LastModified Time Do you use any illicit or recreational drugs? No [email or web address] Information not available 03/04/2025 Do you or have you ever used any other forms of tobacco or nicotine? No [email or web address] Information not available 03/04/2025 What is your level of alcohol consumption? None [email or web address] Information not available 03/04/2025 Mental Status None recorded. Family History Nothing Reported. Medical History Condition Response Allergies/Hayfever N Anxiety/Depression N Other N Gout Y Thyroid Disease N Kidney Stones N Heart Conditions N Hernia N Migraines N COPD N Glaucoma N Pneumonia N Skin Problems N Immune System Disorder N Anesthesia Complications N Heart Attack ([place]) N Mental Illness N Neurological Problems N Diabetes N Rheumatic Fever N Bleeding Disorder N Arthritis N Seizures/Epilepsy N Blood Clot N Tuberculosis N Genetic Disorder N AIDS/HIV N Cancer N Stroke N Asthma Y Blood Thinners N Alcohol Overuse/Alcohol Abuse N Sleep Apnea N High Cholesterol Y Liver Disease N Included as Review of Systems N Hypertension Y Osteoporosis N Kidney Disease N Gynecological HistoryNo gynecological history recorded. Obstetrics History GPAL:G 0 P 0 0 0 0 Immunizations Vaccine Type Date Status Note Provider Nam e and Address Organization Details Recorded Time zoster recombinant 9 completed Cathy Gill [facility] 03/04/2025 15:18:20 zoster recombinant 9 completed Cathy Gill [facility] 03/04/2025 15:18:20 Influenza, high-dose, quadrivalent, PF 2 completed Cathy Gill [facility] 03/04/2025 15:18:20 Tdap 9 completed Cathy Gill [facility] 03/04/2025 15:18:20 Pneumococcal conjugate PCV 13 9 completed Cathy Gill [facility] 03/04/2025 15:18:20 Influenza, high-dose, trivalent, PF [facility] 15:18:20 Influenza, high-dose, trivalent, PF 0 completed Cathy Gill [facility] 03/04/2025 15:18:20 Influenza, high-dose, trivalent, PF 8 completed Cathy Gill [facility] 03/04/2025 15:18:20 Past Encounters Encounter ID Performer Location Encounter Start Date Encounter Closed Date Diagnosis/Indication Diagnosis SNOMED-CT Code Diagnosis ICD10 Code Diagnosis IMO Codes Diagnosis Note [id number] KYREE Rain MD [facility] [address] [place] [address] 1 03/24/2025 14:15:04 04/15/2025 10:24:56 Osteoarthritis of left knee joint 9257534599 43083 M17.12 [id number] Sanjana was seen by Dr Chip rain where surgical plan was discussed and finalized for left total knee arthroplas ty on 03/31/25. [id number] KYREE Rain MD SURGERY SCHEDULE [address] [place] [address] 1 04/03/2025 14:43:47 04/11/2025 13:30:41 [id number] SHANNAN VEE PA-C [facility] [address] [place] [address] 1 04/22/2025 09:41:13 04/22/2025 10:44:35 Health Concerns Section Related Observation LastModified by Organization Detai ls LastModified Time None Recorded Concern Status LastModified by Organization Details LastModified Time None Recorded Payers Encounter Date Sequence Insurance Name Policy Number Policy [place] Covered Member ID [place] Member ID Guarantor Name 04/22/2025 1 [place] Sanjana Pierson [id number] Sanjana Pierson 04/22/2025 2 [employer] SU[employer]MENTAL - [employer] (MEDICARE SUPPLEMENT) Sanjana Pierson [id number] Sanjana Pierson Notes Date Note Type Note Provider Name and Address Organization Details Recorded Time 04/22/2025 text/html 04/22/25Patient is 3 weeks s/p L TKA, 03-31-2025.Pain is improving incision healing without complication.Sid ntly taking tramadol which she was taking prior to surgery for back pain as well as occasional Tylenol as needed for breakthrough painAmbulating with rollator - was using Rollator prior to TKA due to chronic back pain as well as knee painPT: home health- Will discharge this upcoming week, she was hesitant for out patient therapy and feels she can continue at home. Denies fevers, chills, or wound drainage. They do not request a refill of pain medicine. SHANNAN VEE PA-C [address] [place], [address], [facility] 04/22/2025 10:47:51 OBGyn Episode No OBEpisode recorded.
--- OUTSIDE RECORDS SUMMARY | 2025-06-11 14:21 | XMS_ITS | Data Portability ---
Author Organization [facility] ANGELICA BaltazarS MAIDEN CLOSED Address [address] [facility] [address] [place] [address] Care Team Providers Care Range Operator Name Role Phone ABDI GUTIÉRREZ Primary Care Provider ABDI GUTIÉRREZ Referring Provider KYREE BUTLER Orthopedic Surgeon [phone] Assessment Encounter Date Assessment Date Assessment LastModified [...] week post op follow up with radiographs. [email or web address] Not available 04/22/2025 10:46:41 Plan of Treatment Reminders Order Date Submit Date Provider Last Modified By Organization Details Last Modified Time Details Appointments RECHECK 2024 03:00P M SHANNAN VEE PA-C Not available Not available Not available Lab None recorded. Referral None recorded. Procedures None recorded. Surgeries None recorded. Imaging None recorded. Medication Orders meloxicam 7.5 mg tablet 2024 025 [facility] 591, [address], [address], 05/14/2025 15:17:59 Patient TargetsNo targets recorded. Patient InstructionsNo instructions recorded. Reason for Referral None Reported. Results Created Date Observation Date Name Description Value Unit Range Abnormal Flag Note LastModifiedBy Organization Detail LastModifiedTime 03/06/2003/06/2025 PROTH ROMBI N TIME prothrombin time 10.5 secon ds 9.2-11 .0 normal Not Available [facility] [address] [place] [address], [address], 03/06/2025 13:21:19 03/06/2003/06/2025 PROTH ROMBI N TIME INR 1.0 2.0-3. 0 low INR OF 2.0 TO 3.0 RECOM ANI D FOR: PROPH YLAXI S AND TREAT MENT OF VENOU S THROM BOSIS TREAT MENT OF PULMO NARY EMBOL ISM PREVE NTION OF SYSTE KEIRA EMBOL ISM TISSU E HEART VALVE S, VALVU LAR HEART DISEA SE ACUTE MYOCA RDIAL INFAR CTION , ATRIA L FIBRI LLATI ON INR OF 2.5 TO 3.5 RECOM ANI D FOR: RECUR RENT SYSTE KEIRA EMBOL ISM MECHA NICAL PROST HETIC VALVE S Not Available [facility] [address] [place], [address], 03/06/2025 13:21:19 03/06/20 25 03/06/2025 PTT (APTT ) PTT (APTT) 25.0 secon ds 21.9-2 9.9 normal Not Available [facility] [address] [place] [address], [address], 03/06/2025 13:21:20 03/06/20 25 03/06/2025 COMPL ETE BLOOD COUNT white blood cells 8.6 10*3/ uL 3.8-10 .8 normal Not Available [facility] [address] [place] [address], [address], 03/06/2025 13:26:05 03/06/20 25 03/06/2025 COMPL ETE BLOOD COUNT red blood cells 4.20 10*6/ uL 3.80-5 .20 normal Not Available [facility] [address] [place] [address], [address], 03/06/2025 13:26:05 03/06/20 25 03/06/2025 COMPL ETE BLOOD COUNT hemoglobin 13.0 g/dL 12.0-1 6.0 normal Not Available [facility] [address] [place] [address], [address], 03/06/2025 13:26:05 03/06/20 25 03/06/2025 COMPL ETE BLOOD COUNT hematocrit 38.2 % 35.0-4 7.0 normal Not Available [facility] [address] [place] [address], [address], 03/06/2025 13:26:05 03/06/20 25 03/06/2025 COMPL ETE BLOOD COUNT MCV 91 fL 80-100 normal Not Available [facility] [address] [place] [address], [address], 03/06/2025 13:26:05 03/06/20 25 03/06/2025 COMPL ETE BLOOD COUNT MCH 31 pg 26-35 normal Not Available [facility] [address] [place] [address], [address], 03/06/2025 13:26:05 03/06/20 25 03/06/2025 COMPL ETE BLOOD COUNT MCHC 34 g/dL 32-36 normal Not Available [facility] [address] [place] [address], [address], 03/06/2025 13:26:05 03/06/20 25 03/06/2025 COMPL ETE BLOOD COUNT RDW 14.4 % 11.0-1 5.0 normal Not Available [facility] [address] [place] [address], [address], 03/06/2025 13:26:05 03/06/20 25 03/06/2025 COMPL ETE BLOOD COUNT MPV 8.9 fL 6.2-10 .5 normal Not Available [facility] [address] [place] [address], [address], 03/06/2025 13:26:05 03/06/20 25 03/06/2025 COMPL ETE BLOOD COUNT platelet count 245 10*3/ uL 150-40 0 normal Not Available [facility] [address] [place] [address], [address], 03/06/2025 13:26:05 03/06/20 25 03/06/2025 COMPL ETE BLOOD COUNT neutrophil,a bsolute 5.3 10*3/ uL 1.6-8. 4 normal Not Available [facility] [address] [place] [address], [address], 03/06/2025 13:26:05 03/06/20 25 03/06/2025 COMPL ETE BLOOD COUNT lymphocyte,a bsolute 2.4 10*3/ uL 0.4-5. 1 normal Not Available [facility] [address] [place] [address], [address], 03/06/2025 13:26:05 03/06/20 25 03/06/2025 COMPL ETE BLOOD COUNT monocyte,abs olute 0.6 10*3/ uL 0.0-1. 2 normal Not Available [facility] [address] [place] [address], [address], 03/06/2025 13:26:05 03/06/20 25 03/06/2025 COMPL ETE BLOOD COUNT eosinophil,a bsolute 0.2 10*3/ uL 0.0-0. 8 normal Not Available [facility] [address] [place] [address], [address], 03/06/2025 13:26:05 03/06/20 25 03/06/2025 COMPL ETE BLOOD COUNT basophil,abs olute 0.0 10*3/ uL 0.0-0. 3 normal Not Available [facility] [address] [place] [address], [address], 03/06/2025 13:26:05 03/06/20 25 03/06/2025 COMPL ETE BLOOD COUNT % neutrophils 61.7 % 42.0-7 8.0 normal Not Available [facility] [address] [place] [address], [address], 03/06/2025 13:26:05 03/06/20 25 03/06/2025 COMPL ETE BLOOD COUNT % lymphocytes 27.7 % 11.0-4 7.0 normal Not Available [facility] [address] [place] [address], [address], 03/06/2025 13:26:05 03/06/20 25 03/06/2025 COMPL ETE BLOOD COUNT % monocytes 7.2 % 0.0-11 .0 normal Not Available [facility] [address] [place] [address], [address], 03/06/2025 13:26:05 03/06/20 25 03/06/2025 COMPL ETE BLOOD COUNT % eosinophils 2.9 % 0.0-7. 0 normal Not Available [facility] [address] [place] [address], [address], 03/06/2025 13:26:05 03/06/20 25 03/06/2025 COMPL ETE BLOOD COUNT % basophils 0.5 % 0.0-3. 0 normal Not Available [facility] [address] [place] [address], [address], 03/06/2025 13:26:05 03/06/20 25 03/06/2025 COMPL ETE BLOOD COUNT nucleated red cells 0.1 % 0.0-0. 9 normal Not Available [facility] [address] [place], [address], 03/06/2025 13:26:05 03/06/20 25 03/06/2025 COMPL ETE BLOOD COUNT nucleated RBCs, absolute 0.01 10*3/ uL not estab. normal Not Available [facility] [address] [place] [address], [address], 03/06/2025 13:26:05 03/06/20 25 03/06/2025 GLYCO HEMOG LOBIN A1C glyco HGB A1C 6.4 % 0.0-5. 6 high Not Available [facility] [address] [place] [address], [address], 03/06/2025 13:46:11 03/06/20 25 03/06/2025 GLYCO HEMOG LOBIN A1C estimated avg. glucose 137 mg/dL _(josephine c) normal A1c value s betwe en 5.7% to 6.4% indic ate predi abete s. Resul ts 6.5% or great er is diagn ostic of diabe audrey. Ameri can Diabe audrey [employer] iatio n (diab etes. org) Not Available [facility] [address] [place], [address], 03/06/2025 13:46:11 03/06/20 25 03/06/2025 BASIC METAB OLIC PANEL glucose 105 mg/dL 74-100 high Not Available [facility] [address] [place] [address], [address], 03/06/2025 13:59:28 03/06/20 25 03/06/2025 BASIC METAB OLIC PANEL blood urea nitrogen 17 mg/dL 6-20 normal Not Available [facility] [address] [place] [address], [address], 03/06/2025 13:59:28 03/06/20 25 03/06/2025 BASIC METAB OLIC PANEL creatinine 1.04 mg/dL 0.50-0 .95 high Not Available [facility] [address] [place] [address], [address], 03/06/2025 13:59:28 03/06/20 25 03/06/2025 BASIC METAB OLIC PANEL BUN/creatini ne ratio 16 (calc ) 10-20 normal Not Available [facility] [address] [place] [address], [address], 03/06/2025 13:59:28 03/06/20 25 03/06/2025 BASIC METAB OLIC PANEL sodium 141 mmol/ L 136-14 5 normal Not Available [facility] [address] [place] [address], [address], 03/06/2025 13:59:28 03/06/20 25 03/06/2025 BASIC METAB OLIC PANEL potassium 4.1 mmol/ L 3.4-5. 0 normal Not Available [facility] [address] [place] [address], [address], 03/06/2025 13:59:28 03/06/20 25 03/06/2025 BASIC METAB OLIC PANEL chloride 101 mmol/ L 98-107 normal Not Available [facility] [address] [place] [address], [address], 03/06/2025 13:59:28 03/06/20 25 03/06/2025 BASIC METAB OLIC PANEL carbon dioxide 22 mmol/ L 22-31 normal Not Available [facility] [address] [place] [address], [address], 03/06/2025 13:59:28 03/06/20 25 03/06/2025 BASIC METAB OLIC PANEL anion gap 18 (calc ) 7-25 normal Not Available [facility] [address] [place], [address], 03/06/2025 13:59:28 03/06/20 25 03/06/2025 BASIC METAB OLIC PANEL calcium 9.9 mg/dL 8.6-10 .2 normal Not Available [facility] [address] [place], [address], 03/06/2025 13:59:28 03/06/20 25 03/06/2025 BASIC METAB OLIC PANEL eGFR 57 >= 60 abnormal NOT E New calcu latio n for GFR (CKD- EPI 2020) is formu lated witho ut race adjus tment facto rs at the [facility] menda tion of the [employer] at[facility] and [facility] ty of Nephr ology . This calcu latio n has not been valid ated in pregn ant women . For pedia tric patie nts refer to https ://isrrael w.shantel sterling.o rg/pr ofess ional s/KDO QI/gf r_cal culat orPed Not Available [facility] [address] [place], [address], 03/06/2025 13:59:28 03/06/20 25 03/06/2025 FRUCT OSAMI NE fructosamine 222 umol/ L 205-28 5 normal FOR ADULT DIABE TIC PATIE NTS EXPEC TERESA VALUE S ARE 228-5 63 umol/ L. A FRUCT OSAMI NE NICKOLAS NTRAT ION ABOVE THE ESTAB LISHE D EXPEC TERESA VALUE IS AN INDIC ATOR FOR HYPER GLYCE JOHN DURIN G THE PRECE EDING 1-3 WEEKS OR LONGE R. Not Available [facility] [address] [place], [address], 03/06/2025 14:00:15 03/06/20 25 03/08/2025 MRSA CULTU RE SCREE N MRSA culture screen NO MRSA ISOLAT ED Not Available [facility] [address] [place], [address], 03/08/2025 15:13:50 02/27/2002/26/2025 XR, knee, 4 or more view [facility] [address] [facility] [place], [place] [id number] Patien t Name: JAREK johnson : 9[birth year] Jacobo johnson 51 Orderi ng Provid er: YULIYA MARYBEL EXAM DATE: 2024 EXAM: XR LT KNEE COMPLE TE, 4 OR MORE VWS COMPAR PATRICIA: None. HISTOR Y: Left knee pain. FINDIN GS: No fractu re is identi fied. There are severe degene rative change s in the left knee. There is near comple te medial joint space loss. There is modera te to severe margin al spurri ng. There is an ossifi c body superi or to the patell a. Contra latera l knee: There are mild degene rative change s. IMPRES GREG: 1. There are severe degene rative change s in the left knee. Interp reted By: Audelia cheung MD Electr onical ly Signed By: Audelia cheung MD on 02/27/20 4:[email or web address] [facility] [address] [place], [address], 02/27/2025 12:01:20 03/12/2003/12/2025 XR, joint , multi ple, 1 view [facility] [address] [facility] [place] [address] Patikyra t Name: JAREK johnson : 953 Jacobo johnson 51 Orderi ng Provid er: KYREE BYRD EXAM DATE: 2024 EXAM: XR LONG LEG LEFT/ JOINT SURVEY COMPAR PATRICIA: 02/27/20 HISTOR Y: Patien t for pre-op erativ e evalua tion. FINDIN GS: There are severe degene rative change s in the left knee. There is promin ent margin al osteop hytic spurri ng with loss of joint space in the medial femoro tibial compar tment. This result s in varus angula tion of the mechan ical axis of the knee. There are mild degene rative change s in the hip and mild degene rative change s in the ankle. IMPRES GREG: 1. There are severe osteoa rthrit ic change s in the left knee with associ ated varus angula tion of the mechan ical axis of the knee. Interp reted By: Audelia cheung MD Electr onical ly Signed By: Audelia cheung MD on 025 1:52 PM [email or web address] [facility] [address] [place], [address], 03/19/2025 06:25:50 04/22/20 25 04/22/2025 XR, knee, 3 view [facility] [address] [place] [address] [phone] Patien t Name: JAREK PIERSON Kalpanakyra johnson : 9[birth year] Patikyra t 51 Orderi ng Provid er: SHANNAN VEE EXAM DATE: 2024 EXAM: XR LT KNEE 3 VIEWS COMPAR PATRICIA: 02/27/20 25 HISTOR Y: Follow -up of prior surger y. JOHANN GS: There has been interv al placem [...] Signed By: Audelia cheung MD on 04/22/20 25 10:09 AM [email or web address] [facility] [address] [place], [address], 04/22/2025 13:01:57 05/20/2005/14/2025 XR, knee, 3 view [facility] [address] [place] [address] Jacobo johnson Name: JAREK johnson : 953 Jacobo johnson 51 Orderi ng Provid er: SHANNAN VEE [...] Roldan Orona MD on 025 8:[address] [facility] [address] [place], [address], 05/21/2025 08:20:59 Result Notes Documentation Provider Name and Address Organization Details Recorded Time Xr, Joint, Multiple, 1 View : [facility] [address] [place] [address] Patient Name: SANJANA PIERSON Patient : 1955 Patient Ordering Provider: KYREE BUTLER EXAM DATE: 03/12/2025 EXAM: XR LONG LEG LEFT/ JOINT SURVEY COMPARISON: 02/26/2025 HISTORY: Patient for pre-operative evaluation. FINDINGS: There are severe degenerative changes in the left knee. There is prominent marginal osteophytic spurring with loss of joint space in the medial femorotibial compartment. This results in varus angulation of the mechanical axis of the knee. There are mild degenerative changes in the hip and mild degenerative changes in the ankle. IMPRESSION: 1. There are severe osteoarthritic changes in the left knee with associated varus angulation of the mechanical axis of the knee. Interpreted By: Santos Salmon MD E BUTLER MD [address] [place] [address], [address], [facility] 03/19/2025 06:25:50 Xr, Knee, 3 View : [facility] [address] [place] [address] Patient Name: SANJANA PIERSON Patient : 1955 [...] of loosening. Interpreted By: Santos Salmon MD NAN VEE PA-C [facility] [place], [address], [facility] 04/22/2025 13:01:57 Xr, Knee, 3 View : [facility] [address] [place] [address] Patient Name: SANJANA PIERSON Patient : 1955 Patient Ordering Provider: SHANNAN VEE EXAM DATE: 05/14/2025 EXAM: XR LT KNEE 3 VIEWS COMPARISON: April 22, 2025 HISTORY: Follow-up left total knee arthroplasty Procedure: Multiple views of the left knee were performed FINDINGS: There is no acute fracture or dislocation. Cortical margins are within normal limits. There is a total knee arthroplasty, well seated and unchanged Contralateral knee: Arthritis IMPRESSION: No acute osseous findings or significant changes Interpreted By: Roldan Orona MD NAN VEE PA-C [address] [place] [address], [address], [facility] 05/21/2025 08:20:59 Problems Name Problem SNOMED Code Status Onset Date Resolution Date Notes Provider Name and Address Organization Details Recorded Time Joint disorder due to systemic lupus erythematos 1038107009 Active 2024 KYREE SARABIA MD [address] [place] [address], [address], [facility] 16:57:42 Obese class III 455398116 Active 2024 KYREE SARABIA MD [address] [place] [address], [address], [facility] 16:57:43 Osteoarthri tis of left knee joint 0506518374467 09 Active 2024 KYREE SARABIA MD [address] [place] [address], [address] , [facility] 16:57:45 Problem Notes None recorded. Procedures Surgical History Date Name Laterality Status Provider Name and Address Organization Details Recorded Time 5 total replacement of left knee joint completed Cathy Gill [facility] 04/22/2025 08:14:17 PCM Visit completed Tamiko Johnson [facility] 04/14/2025 14:21:58 total replacement of right hip joint completed Cathy Gill [facility] 03/04/2025 15:24:13 Imaging Results None recorded. Procedure Notes None recorded. Medical Equipment None Reported. Allergies Allergen ID Allergen Name Allergen Category Reaction Reaction Severity Criticality Documentation Date Start Date Code Code System Note Provider Name and Address Organization Details Recorded Time 496553 codeine medicatio n Not available Not available Not available 05/06/2024 2670 RxNorm Tamra Domonique [facility] 09:35:48 482338 naproxen medicatio n Not available Not available Not available 05/06/2024 7258 RxNorm Tamra Domonique [facility] 4 09:35:54 Medications Name Sig Start [...] height Body mass index (BMI) Body weight Heart rate Pain severity - 0-10 verbal numeric rating [Score] - Reported Systolic And Diastolic Provider Name and Address Organization Details Last Updated DateTime 162.56 cm 43.5 kg/m2 800607. 03 g 77 /min 7 119/71 mm[Hg] [facility] 10:19:32 Date Recorded Body height Body mass index (BMI) Body weight Pain severity - 0-10 verbal numeric rating [Score] - Reported Provider Name and Address Organization Details Last Updated DateTime 03/23/2025 162.56 cm 43.4 kg/m2 938568.87 g 7 Tamiko Johnson [facility] 03/28/2025 10:25:41 Date Recorded Body height Body mass index (BMI) Body weight Provider Name and Address Organization Details Last Updated DateTime 04/22/2025 162.56 cm 43.4 kg/m2 074184.87 g Justine Reese [facility] 04/22/2025 09:47:34 Date Recorded Body height Body mass index (BMI) Body weight Provider Name and Address Organization Details Last Updated DateTime 05/14/2025 162.56 cm 43.4 kg/m2 499036.87 g Slava Smithes [facility] 05/14/2025 14:38:34 Social History Question Answer Notes LastModified by Organizat ion Details LastModified Time Tobacco Smoking Status [facility] 15:19:07 What Was The Date Of Your Most Recent Tobacco Screening? 03/04/2025 [email or web address] Information not available 03/04/2025 Has Tobacco Cessation Counseling Been Provided? No [email or web address] Information not available 03/04/2025 Sex: Female Functional Status Question Answer Note LastModified by Organizat ion Details LastModified Time Do you use any illicit or recreational drugs? No [email or web address] Information not available 03/04/2025 Do you or have you ever used any other forms of tobacco or nicotine? No [email or web address] Information not available 03/04/2025 What is your level of alcohol consumption? None [email or web address] Information not available 03/04/2025 Mental Status None recorded. Family History Nothing Reported. Medical History Condition Response Allergies/Hayfever N Anxiety/Depression N Other N Gout Y Thyroid Disease N Kidney Stones N Heart Conditions N Hernia N Migraines N COPD N Glaucoma N Pneumonia N Skin Problems N Immune System Disorder N Anesthesia Complications N Heart Attack ([place]) N Mental Illness N Neurological Problems N [...] Recorded Time zoster recombinant 9 completed Cathy panchal, [facility] 03/04/2025 15:18:20 zoster recombinant 9 completed Cathy Gill null, [facility] 03/04/2025 15:18:20 Influenza, high-dose, quadrivalent, PF 2 completed Cathy Gill null, [facility] 03/04/2025 15:18:20 Tdap 9 completed Cathy Scaleson null, [facility] 03/04/2025 15:18:20 Pneumococcal conjugate PCV 13 9 completed Cathy Gill null, [facility] 03/04/2025 15:18:20 Influenza, high-dose, trivalent, PF 9 completed Cathy Gill null, [facility] 03/04/2025 15:18:20 Influenza, high-dose, trivalent, PF 0 completed Cathy Gill null, [facility] 03/04/2025 15:18:20 Influenza, high-dose, trivalent, PF 8 completed Cathy Gill null, [facility] 03/04/2025 15:18:20 Past Encounters Encounter ID Performer Location Encounter Start Date Encounter Closed Date Diagnosis/Indication Diagnosis SNOMED-CT Code Diagnosis ICD10 Code Diagnosis IMO Codes Diagnosis Note [id number] ASHLEIGH ROGERS APRN [facility] [address] [place] [address] 02/05/2024 12:53:38 02/06/2024 05:14:28 Lumbar spondylosis 293414841 M47.896 [id number] LISA ECHEVERRIA PA-C [facility] [address] [place] [address] 05/06/2024 09:29:54 05/07/2024 04:26:58 Low back pain 702243592 M54.50 [id number] YULIYA NO PA-C [facility] [address] [place] [address] 02/26/2025 15:18:11 02/26/2025 16:03:43 Osteoarthritis of left knee joint 1408317417 26372 M17.12 [id number] Mrs. Pierson is a pleasant 70-year-ol d female here today for initial evaluation of left knee osteoarthr itis, knee pain. She reports she has been working with Dr. Braga at [facility], she has had multiple left knee injections , most recent 1 in September. She was trialed out with Celebrex however this upset her stomach. She has a remote history of a left knee arthroscop y in ~2006. She is here today to discuss a total knee arthroplas ty We discussed patients findings of end stage knee osteoarthr itis (OA) today, reviewed radiograph s with patient, answering all questions and concerns. Radiograph s personally reviewed at today's encounter. We discussed that OA is the most common form of arthritis and the degenerati ve, progressiv e nature of OA that can worsenover time, often resulting in chronic pain and stiffness. We discussed how OA is often known as the wear and tear disease and causes breakdown of the cartilage that cushions the ends ofthe bones in their joints. We discussed common OA symptoms including pain, stiffness, tenderness , aching, loss of flexibilit y, grating sensation, bone spurs, swelling, night time pain, and more. We discussed that we can usually manage them with conservati ve treatments . We discussed these conservati ve treatments today including- staying active, maintainin g a healthy weight, formal physical therapy, exercise, rest/ice/c ompress/el evate (RICE methods), anti- inflammato lore (NSAIDs), topical gels/cream s, CBD creams/gum mies, natural supplement s, bracing, cortisone injections , and viscosuppl ementation . Additional ly, we discussed a total joint replacemen t and reviewed surgical expectatio ns, physical therapy expectatio ns post operativel y, and reviewed risks and benefits of surgery. Patient has trialed and failed conservati ve treatments . Patient verbalized understand ing and elected to proceed with surgical discussion today. I will set him up with deposit clerk and have him see Dr. Voss for formal surgical discussion along with risks/bene fits of a total knee arthroplas ty. Possible surgery: ASC vs [facility] medical history: Denies cardiac/liane ng/DVT/PE/ smoking/di abetes historyOth er notable informatio n: Interestin gly, she has 11 sisters and one brother, boyfriend will help her after surgery ; difficulty with NSAIDs due to stomach issues [id number] KYREE Rain MD [facility] [address] [place] [address] 03/04/2025 15:13:56 03/06/2025 14:42:04 Osteoarthritis of left knee joint [id number] 09755 M17.12 [id number] ASSESSMENT : DJD LEFT knee PLAN:The patient has end stage osteoarthr itis of the LEFT knee. The patient has failed > 3 months of conservati ve measures including NSAIDs, activity modificati on, corticoste roid injections , etc. The patient has pain daily, affecting his/her activities of daily living, and interferin g with sleep. They wish to proceed with total knee arthroplas ty, which I believe to be reasonable . Per ACR/AAHKS guidelines , arthroplas ty in patients with moderate to severe arthritis should not be delayed simply to engage in additional nonoperati ve treatment options. We reviewed the risks, benefits, and alternativ es to knee replacemen t surgery. We discussed the risk of infection, fracture, neurovascu lar injury, chronic pain, stiffness, instabilit y, aseptic loosening, and component wear. We discussed the risk of medical complicati ons, including but not limited to, VTE, pulmonary complicati ons, cardiac complicati ons, and stroke. All questions were answered to the best of my ability. She does remain high risk for complicati on from surgery due to comorbidit ies including obesity, and lupus. The patient expresses understand ing and awareness of PCM services, including but not limited to potential cost sharing responsibi lities; only one [facility] can furnish and bill for PCM services during a calendar month, and the patient can stop these services at any time. The patient understand s and has verbally consented to accept PCM services and has been provided a copy of a written explanatio n of this service today. Surgery date: 03-31-25[facility] [facility] equipment: Cemented Ruma MCPre-op clearance: Alvaro Whaley medical clearance: DVT prophylaxi s: ASA, TEDAdmissi on status: OUTPATIENT Discharge plan: overnight admissionP T: home health Allergies: otherSkin testing: No Obese class III [id number] E66.813 [id number] Class III obesity with BMI 43. Obesity increases this patient's risk for medical and surgical complicati ons including superficia l deep infection, respirator y compromise , aseptic loosening, and premature component wear. Weight loss prior to surgery was strongly encouraged . Joint diso rder due to systemic lupus erythematosus [id number] M32.9 [id number] She is currently maintained on hydroxychl oroquine only, no Biologics. Per ACR/AAHKS guidelines , this medication may be continued throughout the perioperat sam period. Diagnosis of lupus, as well as the immunosupp ressive medication s are often used to treat this condition increase her risk for medical and surgical complicati ons including superficia l and deep infection, and wound healing complicati ons. This is considered a nonmodifia ble risk factor. [id number] RADHA YEN PA-C ORTHOPEDI [address] [place] [address] 03/12/2025 10:10:26 03/13/2025 05:19:28 Pre-surgery evaluation [id number] Z01.585 [id number] Chronic conditions appear stable. Preoperati ve lab work reviewed with the patient. Any modifiable risk factors discussed. No indication for any additional labs or testing at this time. Continue with planned joint arthroplas ty. Discussed postoperat sam plan for physical therapy. Patient will be going up to see Jonathan Escamilla DPT for alba rain today. All questions answered to the best of my ability. Prediabetes [id number] R7 3.03 Patient is prediabeti c on preoperati ve screening. Recommend follow-up with primary care for recheck in 3 to 6 months. Discussed lifestyle modificati ons. Serum crea tinine above reference range [id number] R79.89 675403 Creatinine 1.04 with EGFR 57. Limit nephrotoxi c agents postoperat ively. Irregular heart beat [id number] I49.9 [id number] EKG @ [facility] for baseline- followed by [facility] cardiology -controlle RRR today [id number] KYREE Rain MD [place] [address] [place] [address] [place] [address] 1 03/24/2025 14:15:04 04/15/2025 10:24:56 Osteoarthritis of left knee joint [id number] 21577 M17.12 [id number] Sanjana was seen by Dr Chip rain where surgical plan was discussed and finalized for left total knee arthroplas ty on 03/31/25. [id number] KYREE Rain MD SURGERY SCHEDULE [address] [place] [address] 1 04/03/2025 14:43:47 04/11/2025 13:30:41 [id number] SHANNAN VEE PA-C ORTHOPEDI CS [address] [place] [address] 1 04/22/2025 09:41:13 04/22/2025 10:44:35 [id number] SHANNAN VEE PA-C ORTHOPEDI CS [address] [place] [address] 1 05/14/2025 13:52:09 05/14/2025 15:21:36 History of left total knee replacement [id number] Z96.652 [id number] Pt is here today for 6 week post op L TKA follow up. Patient overall doing well. Pain continues to improve. She takes tramadol once a day which was her baseline prior to left TKA. Requesting a refill of meloxicam. Ambulating with a cane. Reviewed dental prophylaxi s and expectatio ns at 6 weeks. Should continue to see improvemen ts over the next year. Radiograph s obtained today reveal intact LTKA implants in good positionin gand alignment, with no evidence of loosening, lysis or RLLs.Physi josephine exam reveals good ROM without pain and a well-heale d surgicalin cision. At this time, the patient is encouraged to gradually resumeacti vities of daily living as comfortabl e, including walking for increasing periods of time,swimm ing, and driving. The patient should begin working on strengthen ing the leg; weemphasiz ed the importance of continuing their HEP to build and maintain strength.W e reviewed scar massages and tissue mobilizati on. Return to clinic in 2 months for long-leg radiograph s and reevaluati on. Health Concerns Section Related Observation LastModified by Organization Detai ls LastModified Time None Recorded Concern Status LastModified by Organization Details LastModified Time None Recorded Advance Directives Directive None Recorded Payers Insurance Date Sequence Insurance Name Policy Number Policy Lo[place] Covered Member ID Loft[place] Member ID Guarantor Name 05/21/2025 2 [employer] SU[employer] - [employer] (MEDICARE SUPPLEMENT) Sanjana Dangelo [id number] Sanjana Pierson 04/21/2025 1 [place] Sanjana Pierson [id number] Sanjana Pierson Notes Date Note Type Note Provider Name and Address Organization Details Recorded Time 5 text/html ROS as noted in the HPI Surgery Date: 03/31/25Surgical Procedure: left total [facility]plasty[facility] [place] 03/06/25 Pertinent past medical history for essential hypertension, lupus, hypokalemia, asthma with PRN albuterol,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 No lightheadedness, dizziness. No substernal chest pain, palpitations, dyspnea on exertion. No cough, hemoptysis, no SOA, no pleuritic chest pain. No n/v/d. No dysuria, hematuria. RADHA YEN PA-C [address] [place], [address], [facility] 03/12/2025 18:17:36 5 text/html 04/22/25Patient is 3 weeks s/p L TKA, 03-31-2025.Pain is improving incision healing without complication.Currently taking tramadol which she was taking prior [...] refill of pain medicine. SHANNAN VEE PA-C [address] [place], [address], [facility] 04/22/2025 10:47:51 5 text/html 05/14/25Patient is 6 weeks s/p L TKA, on 03-31-2025.Pain is improving incision healing without complication.Ambulating with canePT: HEP Denies fevers, chills, or wound drainage. They do not request a refill of pain medicine. 04/22/25Patient is 3 weeks s/p L TKA, 03-31-2025.Pain is improving incision healing without complication.Currently taking tramadol which she was taking prior [...] refill of pain medicine. SHANNAN VEE PA-C [address] [place], [address], [facility] 05/14/2025 15:22:49 OBGyn Episode No OBEpisode recorded.
--- OUTSIDE RECORDS SUMMARY | 2025-06-11 14:21 | XMS_ITS | Clinical Summary ---
[facility] Address [address] [place] [address] Care Team Providers Care [employer] Name Role Phone Dillan Jain MD Primary Care Provider [phone] Allergies Active Allergy Reactions Criticality Noted Date [...] 1 tablet by mouth Every Night. Active metoprolol succinate XL (TOPROL-XL) 50 MG 24 hr tablet TAKE 1 TABLET BY MOUTH ONCE DAILY Active traMADol (ULTRAM) 50 MG tablet TAKE 1 TABLET BY MOUTH THREE TIMES DAILY NEEDED Active losartan (COZAAR) 50 MG tablet take 1 tablet by mouth once daily Active triamterene-hy drochlorothiaz audrey (MAXZIDE-25) 37.5-25 MG per tablet TAKE 1 TABLET BY MOUTH ONCE DAILY FOR 90 DAYS Active Baclofen (LIORESAL) 5 MG tablet Take 1 tablet by mouth Daily. 4 Active hydroxychloroq uine (PLAQUENIL) 200 MG tablet Take 1 tablet by mouth 2 (Two) Times a Day. 60 tablet 5 5 Active albuterol sulfate HFA 108 (90 Base) MCG/ACT inhaler Inhale 1 puff Every 4 (Four) Hours As Needed. Active coenzyme Q10 100 MG capsule Take 2 capsules by mouth Daily. Active gabapentin (NEURONTIN) 600 MG tablet Take 1 tablet by mouth 3 (Three) Times a Day. Active gabapentin (NEURONTIN) 300 MG capsule TAKE 1 CAPSULE BY MOUTH TWICE DAILY 4 06/05/20 Discontinu ed(Duplica te order) hydroxychloroq uine (PLAQUENIL) 200 MG tablet Take 1 tablet by mouth 2 (Two) Times a Day. 60 tablet 5 5 06/05/20 Discontinu ed(Reorder ) Active Problems Problem Noted Date Diagnosed Date High risk medication use 06/05/2024 Assessment & Plan (06/05/2025 3:44 PM EDT): * Plaquenil 200 mg PO BID for SLE * Started 11/08/22 Patient's taking hydroxychloroquine should have an eye exam at least once/year to monitor for signs of medication toxicity Assessment & Plan (12/04/2024 2:47 PM EDT): * Plaquenil 200 mg PO BID for SLE * Started 11/08/22 Patient's taking hydroxychloroquine should have an eye exam at least once/year to monitor for signs of medication toxicity Assessment & Plan (06/05/2024 3:01 PM EDT): * Plaquenil 200 mg PO BID for SLE * Started 11/08/22 Patient's taking hydroxychloroquine should have an eye exam at least once/year to monitor for signs of medication toxicity SLE (systemic lupus erythematosus) 05/21/2024 Assessment & Plan (06/05/2025 4:00 PM EDT): * 2008: VALENTINA 1:80 speckled * 10/25/22: VALENTINA positive, DS DNA 26 (0-4), Longo negative, SSA and SSB Normal, TRAFFIC MANAGER normal, chromatin normal, Renetta 1 normal, Centromere normal, SCL 70 normal, Ribosomal P Normal, ESR 46 (0-30) * Medications/treatments/interventions tried include: Tylenol, Advil, meloxicam, she saw Jayson Pack MD (Block Machine Operator) in 2008, She has seen an orthopaedic surgeon, she has done physical therapy, she had hip replacement surgery, she had arthroscopic knee surgery, Percocet (Allergic/intolerant), Aleve (allergic/Intolerant), allopurinol, gabapentin, shoulder injection, she saw a paint and table edger, she had back injections, Plaquenil, Tramadol, knee injection, Baclofen, She has had knee replacement surgery 1. Check labs 2. Continue/refill Plaquenil 3. We gave her a handout on hydroxychloroquine to take home and review 4. Follow up in 6 months 5. She has some arthritic pain. We believe this is degenerative in nature. See below. Assessment & Plan (12/04/2024 2:56 PM EDT): * 2008: VALENTINA 1:80 speckled * 10/25/22: VALENTINA positive, DS DNA 26 (0-4), Longo negative, SSA and SSB Normal, TRAFFIC MANAGER normal, chromatin normal, Renetta 1 normal, Centromere normal, SCL 70 normal, Ribosomal P Normal, ESR 46 (0-30) * Medications/treatments/interventions tried include: Tylenol, Advil, meloxicam, she saw Jayson Pack MD (Block Machine Operator) in 2008, She has seen an orthopaedic surgeon, she has done physical therapy, she had hip replacement surgery, she had arthroscopic knee surgery, Percocet (Allergic/intolerant), Aleve (allergic/Intolerant), allopurinol, gabapentin, shoulder injection, she saw a paint and table edger, she had back injections, Plaquenil, Tramadol, knee injection, Baclofen 1. Check labs 2. Continue/refill Plaquenil 3. We gave her a handout on OA to take home and review 4. Follow up in 6 months 5. She has some arthritic pain. We believe this is degenerative in nature. See below. Assessment & Plan (06/05/2024 2:56 PM EDT): * 2008: VALENTINA 1:80 speckled * 10/25/22: VALENTINA positive, DS DNA 26 (0-4), Longo negative, SSA and SSB Normal, TRAFFIC MANAGER normal, chromatin normal, Renetta 1 normal, Centromere normal, SCL 70 normal, Ribosomal P Normal, ESR 46 (0-30) * Medications/treatments/interventions tried include: Tylenol, Advil, meloxicam, she saw Jayson Pack MD (Block Machine Operator) in 2008, She has seen an orthopaedic surgeon, she has done physical therapy, she had hip replacement surgery, she had arthroscopic knee surgery, Percocet (Allergic/intolerant), Aleve (allergic/Intolerant), allopurinol, gabapentin, shoulder injection, she saw a paint and table edger, she had back injections, Plaquenil, Tramadol, knee injection 1. Check labs 2. Continue/refill Plaquenil 3. We gave her a handout on Lupus to take home and review 4. Follow up in 6 months 5. She seems well today Osteoarthritis 05/21/2024 Assessment & Plan (06/05/2025 4:00 PM EDT): 1. Weight loss would be [...] 16. She has had knee replacement surgery. Assessment & Plan (12/04/2024 2:56 PM EDT): 1. Weight loss would [...] She has taken muscle relaxer's like Baclofen Assessment & Plan (06/05/2024 2:56 PM EDT): [...] Encounters Date Type Department Care Team Description 06/10/2025 Telephone [facility] [address] [place] [phone] DO LAB ORDERS DOES NOT HAVE DR SIGNATURE 06/06/2025 Telephone [facility] [address] [place] [phone] DO 06/05/2025 3:45 PM EDT Office Visit [facility] [address] [place] [phone] DO Systemic lupus erythematosus, unspecified SLE type, unspecified organ involvement status (Primary Dx); High risk medication use; Primary osteoarthritis involving multiple joints; Other fatigue 06/05/2025 Travel from Last 3 Months Family History [...] Mass Index 40.27 06/05/2025 3:36 PM EDT Plan of Treatment Upcoming Encounters Date Type Department Care Team (Late st Contact Info) Description 12/08/2025 2:45 PM EDT Office Visit [facility] [address] [phone] DO [address] [address] Health Maintenance Due Date Last Done Comments DXA SCAN 1955 COVID-19 Vaccine (#1) 1958 DIABETIC EYE EXAM 1963 DIABETIC FOOT EXAM 1963 URINE MICROALBUMIN-CREATININ E RATIO (uACR) 1963 COLOGUARD 1998 COLON CANCER SCREENING 5 YEA R SIGMOIDOSCOPY 1998 COLONOSCOPY 1998 COLORECTAL CANCER SCREENING 1998 CT COLONOGRAPHY 1998 FECAL OCCULT BLOOD TEST 1998 FIT Testing (1 year) 1998 Pneumococcal Vaccine 50+ (2 of 2 - PPSV23, PCV20, or PCV21) 12/10/2018 10/15/2018 ANNUAL WELLNESS VISIT 05/21/2024 HEPATITIS C SCREENING 05/21/2024 INFLUENZA VACCINE 03/21/2025 08/23/2021, , 04/29/2019, Additional history exists HEMOGLOBIN A1C 11/11/2025 05/14/2025 MAMMOGRAM 12/03/2025 12/04/2023, 11/19, 01/26/2022, Additional history exists TDAP/TD VACCINES (2 - Td or Tdap) 12/24/2028 019 ZOSTER VACCINE Completed 12/26/2018, 10/17/2018 Insurance MEDICARE A & B Member Subscriber Plan / Payer (Ef fective 2011-Present) Name:Sanjana Pierson Member ID:[id number] Relation to Subscriber:Self Name:Sanjana Pierson Subscriber ID:[id number] Payer ID:[id number] Group ID:Not on file Type:Not on file Address: [facility] [id number] [place] [id number] [employer] Care Teams [employer] Relationship Specialty Start Date End Date Dillan Jain MD [address] [facility] [address] [place] [phone] PCP - General Family Medicine 05/28/24
--- OUTSIDE RECORDS SUMMARY | 2025-06-11 14:21 | XMS_ITS | Encounter Summary ---
[facility] Address [address] [place] [address] Care Team Providers Care Help Desk Support Name Role Phone Dillan Jain MD Primary Care Provider [phone] Encounter Details Date Type Department Care Team (Late st Contact Info) Description 12/05/2024 Results Follow-Up [facility] [address] [place] [phone] DO [address] [place] [phone] Social History Tobacco Use Types Packs/Day Years [...] Description 12/08/2025 2:45 PM EDT Office Visit [facility] [address] [phone] DO [address] [phone] documented as of this encounter Visit Diagnoses Not on filedocumented in this encounter Care Teams Help Desk Support Relationship Specialty Start Date End Date Dillan Jain MD [address] [facility] [address] [facility] [address] [place] [address] PCP - General Family Medicine 05/28/24 documented as of this encounter
--- OUTSIDE RECORDS SUMMARY | 2025-06-11 14:21 | XMS_ITS | Patient Health Record ---
Author Organization [facility] Address [address] [facility] [address] [place] [id number] Care Team Providers Care Car Top Bolter Name Role Phone Yannick Jain Primary Care Provider [phone] Boris Aguilar Unavailable [phone] Lydia Moseley Unavailable [phone] Allergies Allergen (clinical drug ingredient) Drug/Non Drug Allergy documented on EMR Reaction Allergy Type Onset Date Status Aleve Unknown Drug Allergy Active acetaminophen / oxycodone Percocet Unknown Drug Allergy Active codeine Codeine sick to stomach Drug Allergy A ctive Results Component Value Reference Range Notes P-Comprehensive Metabolic Pa alysha (CMP) Reviewed date:12/06/2024 10:50:40 AM Interpretation:alk phos 142 Performing Lab: Notes/Report: Test performed by [facility] [address] [place] [address] , [address], [place] [address] Jung Jc MD, Display Designer Outside CLIA: [id number] Sodium 138 135-145 mmol/L Potassium 4.4 3.5-5.3 [...] 0.5 <0.2-1.2 mg/dL A/G Ratio 1.1 1.1-2.5 P-Comprehensive Metabolic Pa alysha (CMP) Reviewed date:02/18/2025 01:22:40 PM Interpretation:satisfactory Performing Lab: Notes/Report: Test performed by [facility] [address] [place] [address] , [address], [place] [address] Jung Jc MD, Display Designer Outside CLIA: [id number] Sodium 136 135-145 mmol/L Potassium 4.5 3.5-5.3 [...] Interpretation:Normal Performing Lab: Notes/Report: Test performed by [facility] [address] [place] [address] , [address], [place] [address] Jung Jc MD, Display Designer Outside CLIA: [id number] Magnesium 1.7 1.6-2.4 mg/dL P-Basic Metabolic Panel (BMP ) Reviewed date:08/08/2024 01:31:20 PM Interpretation: Performing Lab: Notes/Report: Test performed by [facility] [address] [place] [address] , [address], [place] [address] Jung Jc MD, Display Designer Outside CLIA: [id number] Sodium 137 135-145 mmol/L Potassium 4.2 3.5-5.3 mmol/L Chloride 101 97-108 mmol/L CO2 25 22-32 mmol/L Glucose 100 65-99 mg/dL BUN 18 8-23 mg/dL Creatinine 0.84 0.50-1.00 mg/dL Calcium 9.6 8.6-10.4 mg/dL eGFR by Creatinine 74 >59 mL/min/1.73m2 Mammogram Reviewed date:03/13/2025 01:08:18 PM Interpretation:Negative Performing Lab: Notes/Report: Negative result negative Influenza Screen (in house) Reviewed date:07/29/2024 07:44:10 [...] Date End Date Status Allopurinol 100 MG Take 1 tablet by mouth once daily; Duration: 90 Active Baclofen 5 MG 1 tablet as needed Orally Once a day; Duration: 30 day(s) Not-Taking traMADol HCl 50 MG 1 tablet as needed Orally three times a day as needed 04/26/2025 Active Potassium Chloride ER 10 MEQ Take 1 tabl et by mouth once daily; Duration: 90 days Active CoQ-10 200 MG as directed Orally 02/06/2025 Active Spironolactone 25 MG Take 1 tablet by mouth once daily; Duration: 90 Active Triamterene-HCTZ 37.5-25 MG Take 1 table t by mouth once daily; Duration: 30 Active Montelukast Sodium 10 MG 1 tab(s) orally once a day; Duration: 90 days 05/27/2017 Active Primidone 50 MG Take 1 tablet by mouth twice daily; Duration: 90 Active Metoprolol Succinate ER 50 MG 1 [...] Intramuscular 08/23/2021 Administered Pt tolerated w ell Problems Problem Type SNOMED Code ICD Code Onset Dates Problem Status W/U Status Risk Notes Problem Essential hypertension (65179152) Essential hypertension (I10) Active confirmed Problem Morbid obesity (086279958) Morbid obesity (E66.01) Active confirmed Problem Dyspepsia (285982026) Dyspepsia (K30) Active co nfirmed Problem Degeneration of lumbar intervertebral disc (98958095) Degenerative disc disease, lumbar (M51.36) Active confirmed Problem Palpitations (98664332) Heart palpitations (R00.2) Active confirmed Problem Recurrent falls (047142669) Falls frequently (R29.6) Active confirmed Problem Hypomagnesemia (809249179) Hypomagnesemia (E83.42) Active confirmed Problem Chronic pain (79603710) Other chronic pain (G89.29) Active confirmed Problem Osteoarthritis (680209361) Unspecified osteoarthritis, unspecified site (M19.90) Active confirmed Problem Sciatica (17755452) Lumbago with sciatica, left side (M54.42) Active confirmed Problem Onychomycosis (856695826) Onychomycosis (B35.1) Active confirmed Problem Shoulder joint pain (590965736) Pain in left shoulder (M25.512) Active confirmed Problem Chronic pain (86044466) Other chronic pain (G89.29) Active confirmed Problem Pain of left knee joint (finding) (441888270725325) Pain in left knee (M25.562) Active confirmed Problem Gastroesophageal reflux disease (disorder) (557816457) Chronic GERD (K21.9) Active confirmed Problem Obstructive sleep apnea syndrome (02850361) JOSE (obstructive sleep apnea) (G47.33) Active confirmed Problem Ectopic atrial beats (115179627) Ectopic atrial beats (I49.1) Active confirmed Problem Body mass index 40+ - morbidly obese (209570880) BMI 40.0-44.9, adult (Z68.41) Active confirmed Problem Acquired trigger finger (1405071) Trigger finger of right thumb (M65.311) Active confirmed Problem Raised antinuclear antibody (081770486) VALENTINA positive (R76.8) Active confirmed Problem Sleep disturbance (16967951) Sleep disturbance, unspecified (G47.9) Active confirmed Problem Pure hypercholesterolemia (185686792) Pure hypercholesterolemia (E78.00) Active confirmed Problem Contracture of tinoco r fascia (788871077) Dupuytren's contracture (M72.0) Active confirmed Problem Fibrocystic breast changes (58877056) Fibrocystic breast disease (FCBD), unspecified laterality (N60.19) Active confirmed Problem Lumbar facet joint pain (485146257) Lumbar facet joint pain (M54.5) Active confirmed Problem Osteoarthritis of knee (718586338) Arthropathy of left knee (M17.12) Active confirmed Problem Chondrocalcinosis (873793500) Chondrocalcinosis (M11.20) Active confirmed Problem Lumbar facet joint pain (229707351) Lumbar facet joint pain (M54.59) Active confirmed Problem Injury of rotator cuff (874931297) Injury of left rotator cuff, subsequent encounter (S46.002D) Active confirmed Problem Systemic lupus erythematosus (59269120) Other forms of systemic lupus erythematosus, unspecified organ involvement status (M32.8) Active confirmed Vital Signs Heart Rate 67 /min 02/06/2025 Blood pressure diastolic 70 mm Hg 02/06/2025 Height 65.25 in 02/06/2025 Blood pressure systolic 120 mm Hg 02/06/2025 Weight 256.6 lbs 02/06/2025 BMI 42.37 kg/m2 02/06/2025 Encounters Encounter Location Date Provider Diagnosis [facility] [address] [facility] [address] [place] [id number] 07/29/2024 Lydianicole Moseley URI (upper respiratory infection) J06.9 and Leg edema R60.0 [facility] [address] [facility] [address] [place] [id number] 08/05/2024 Lydianicole Moseley Essential hypertension I10 and Leg edema R60.0 [facility] [address] [facility] [address] [place] [id number] 08/19/2024 Yannick Jain Onychogryposis of to enail L60.2 ; Essential hypertension I10 ; Lumbar facet joint pain M54.59 and Degeneration of intervertebral disc of lumbar region, unspecified whether pain present M51.369 [facility] [address] [facility] [address] [place] [id number] 12/02/2024 Yannick Jain Lumbar facet joint p ain M54.59 ; Unspecified osteoarthritis, unspecified site M19.90 ; VALENTINA positive R76.8 ; Pain in left shoulder M25.512 ; Other chronic pain G89.29 ; Essential hypertension I10 ; Morbid obesity E66.01 and BMI 40.0-44.9, adult Z68.41 [facility] [address] [facility] [address] [place] [id number] 02/06/2025 Yannick Jain Essential hypertensi on I10 ; Heart palpitations R00.2 ; Arthropathy of left knee M17.12 ; Hypomagnesemia E83.42 and Pure hypercholesterolemia E78.00 [facility] [address] [facility] [address] [place] [id number] 07/11/2024 Yannick Jain Other chronic pain G 89.29 [facility] [address] [place] [id number] 10/14/2024 Yannick Jain [facility] [address] [facility] [address] [place], [place] [id number] 12/06/2024 Yannick Jain [facility] [address] [place] [id number] 12/06/2024 Yannick Jain [facility] [address] [place] [id number] 12/31/2024 Yannick Jain [facility] [address] [place] [id number] 01/20/2025 Yannick Jain Other chronic pain G 89.29 [facility] [address] [place] [id number] 02/17/2025 Yannick Jain Screening for breast cancer Z12.39 and Screening for colon cancer Z12.11 [facility] [address] [place], [place] [id number] 04/22/2025 Yannick Jain [facility] [address] [place] [id number] 04/26/2025 Boris Aguilar Other chronic pain G 89.29 [facility] [address] [place] [id number] 08/22/2024 Yannick Jain Rhinitis, unspecifie d type J31.0 [facility] [address] [place] [id number] 09/06/2024 Yannick Jain Rhinitis, unspecifie d type J31.0 Assessments Encounter Date Diagnosis (ICD Code) Assessment Notes Treatment Notes Treatment Clinical Notes Section Notes 07/11/2024 Other chronic pain (ICD-10 - [...] Rhinitis, unspecifie d type (ICD-10 - J31.0) 09/06/2024 Rhinitis, unspecifie d type (ICD-10 - J31.0) 12/02/2024 Unspecified osteoarthritis, unspecified site (ICD-10 - M19.90) 12/02/2024 Lumbar facet joint p ain (ICD-10 - M54.59) 01/20/2025 Other chronic pain (ICD-10 - G89.29) 02/17/2025 Screening for breast cancer (ICD-10 - Z12.39) 02/17/2025 Screening for colon cancer (ICD-10 - Z12.11) 04/26/2025 Other chronic pain (ICD-10 - G89.29) 02/06/2025 Essential hypertensi on (ICD-10 - I10) 02/06/2025 Heart palpitations (ICD-10 - R00.2) 12/02/2024 VALENTINA positive (ICD-10 - R76.8) 02/06/2025 Arthropathy of left knee (ICD-10 - M17.12) 08/19/2024 Lumbar facet joint p ain (ICD-10 - M54.59) 08/19/2024 Degeneration of intervertebral disc of lumbar region, unspecified whether pain present (ICD-10 - M51.369) 12/02/2024 Pain in left shoulde r (ICD-10 - M25.512) 02/06/2025 Hypomagnesemia (ICD- 10 - E83.42) 02/06/2025 Pure hypercholesterolemia (ICD-10 - E78.00) 12/02/2024 Other chronic pain (ICD-10 - G89.29) 12/02/2024 Essential hypertensi on (ICD-10 - I10) 12/02/2024 Morbid obesity (ICD- 10 - E66.01) 12/02/2024 BMI 40.0-44.9, adult (ICD-10 - Z68.41) Plan Of Treatment Pending Test Test Name Order Date colonoscopy 02/17/2025 Next Appt Details Provider Name:Yannick Luna er, 06/26/2025 03:15:00 PM, [address], [place], [id number], Insurance Providers Payer Name Payer Address Payer Phone Subscriber Number Group Number Insured Name Patient Relationship to Insured Coverage Start Date Coverage End Date MEDICARE PART B [address] [address] [place] [address] [id number] RADHA MARTINEZ Self - patient is the insured [employer] MED[employer]ARE SUPPLEMENT [address] [address] [place], [place] [id number] RADHA MARTINEZ Self - patient is the [...] 01/12/15 COVID screening: negative 01/15/2020 Colonoscopy at [facility] Dr. Gallegos, tubular gabrielle noma 01/16/[address] Reddy Hospitalization History Reason Date(Month/Year) [facility] ER- pain in right hip 12/14/08
--- OUTSIDE RECORDS SUMMARY | 2025-06-11 14:22 | XMS_ITS | Encounter Summary ---
[facility] Address [address] [place] [address] Care Team Providers Care Seed Cleaner Name Role Phone Dillan Jain MD Primary Care Provider [phone] Encounter Details Date Type Department Care Team (Late st Contact Info) Description 12/05/2024 Results Follow-Up [facility] [address] [place] [address] DO [address] [place] [address] Social History Tobacco Use Types Packs/Day Years [...] Office Visit [facility] [address] [address] DO [address] [id number] documented as of this encounter Visit Diagnoses Not on filedocumented in this encounter Care Teams Seed Cleaner Relationship Specialty Start Date End Date Dillan Jain MD [address] [facility] [address] [facility] [address] [place] [address] PCP - General Family Medicine 05/28/24 documented as of this encounter
--- OUTSIDE RECORDS SUMMARY | 2025-06-11 14:22 | XMS_ITS | Encounter Summary ---
[facility] Address [address] [place] [address] Care Team Providers Care Journeyman Meat Cutter Name Role Phone Dillan Jain MD Primary Care Provider [phone] Encounter Details Date Type Department Care Team (Late st Contact Info) Description 12/09/2024 Results Follow-Up [facility] RHEUMAT[facility] [address] [place] [address] DO [address] [place] [address] Social History Tobacco Use Types Packs/Day Years [...] Description 12/08/2025 2:45 PM EDT Office Visit [facility] [address] [address] DO [address] [id number] documented as of this encounter Visit Diagnoses Not on filedocumented in this encounter Care Teams Journeyman Meat Cutter Relationship Specialty Start Date End Date Dillan Jain MD [address] [facility] [address] [facility] [address] [place] [address] PCP - General Family Medicine 05/28/24 documented as of this encounter
[2025-06-11 14:23] LABS: Hematocrit 42.4 % (37.0-47.0); Hemoglobin 14.1 g/dL (12.2-16.2); Immature Granulocytes % 0.3 %; Mean Corpuscular HGB Conc 33.3 g/dL (31.8-35.4); Mean Corpuscular Hemoglobin 31.0 pg (27.0-31.2); Mean Corpuscular Volume 93.2 fl (81-99); Nucleated Red Blood Cells % 0 %; Platelet Count 294 K/mm3 (142-424); Red Blood Count 4.55 M/mm3 (4.20-5.40); Red Cell Distribution Width-SD 44.4 fL; White Blood Count 10.9 K/mm3 (4.8-10.8)
--- OUTSIDE RECORDS SUMMARY | 2025-06-11 14:23 | XMS_ITS | Encounter Summary ---
[facility] Address [address] [place] [address] Care Team Providers Care Real Estate Officer Name Role Phone Dillan Jain MD Primary Care Provider [phone] Reason for Visit * Reason Onset Date Comments LAB ORDERS DOES NOT HAVE DR SPRINGER 06/10/2025 Encounter Details Date Type Department Care Team (Late st Contact Info) Description 06/10/[address] [facility] R[facility] [address] [address] DO [address] [id number] LAB ORDERS DOES NOT HAVE DR SPRINGER Social History Tobacco Use Types Packs/Day Years [...] AM EDT documented as of this encounter Miscellaneous Notes * Telephone Encounter - Michelle Luna MA - 06/10/2025 3:37 PM EDT I re-faxed labs to [facility] Lab at the number provided in pt's message below. - AVA Sousa * Telephone Encounter - Jerrica Carmona RegSched Rep - 06/10/2025 12:01 PM EDT Provider: SAFIA Caller: Sanjana Pierson Relationship to Patient: Self [facility] RECEIVED A LAB ORDER BUT IT DOES NOT HAVE THE DR SIGNATURE. PLEASE REFAXWITH DR SIGNATURE [phone] documented in this encounter Plan of Treatment Upcoming Encounters Date Type Department Care Team (Late st Contact Info) Description 12/08/2025 2:45 PM EDT Office Visit [facility] [address] [address] DO [address] [address] documented as of this encounter Visit Diagnoses Not on filedocumented in this encounter Care Teams Real Estate Officer Relationship Specialty Start Date End Date Dillan Jain MD [address] [facility] [address] [facility] [address] [place] [address] PCP - General Family Medicine 05/28/24 documented as of this encounter
--- OUTSIDE RECORDS SUMMARY | 2025-06-11 14:23 | XMS_ITS | Encounter Summary ---
[facility] Address [address] [place] [address] Care Team Providers Care Program Trainer Name Role Phone Dillan Jain MD Primary Care Provider [phone] Encounter Details Date Type Department Care Team (Latest Contact Info) Description 06/05/2025 Travel Social History Tobacco Use Types Packs/Day [...] 12/08/2025 2:45 PM EDT Office Visit [facility] [address] [place] [phone] Derrick Wya DO 330 [facility] [address] [place] [address] documented as of this encounter Visit Diagnoses Not on filedocumented in this encounter Care Teams Program Trainer Relationship Specialty Start Date End Date Dillan Jain MD [address] [place] [facility] [address] [place] [address] PCP - General Family Medicine 05/28/24 documented as of this encounter
--- OUTSIDE RECORDS SUMMARY | 2025-06-11 14:23 | XMS_ITS | Clinical Summary ---
Author Organization [employer] ([place], [place], [place], [place]) Address [address] [place] [address] Care Team Providers Care Beef Cattle Specialist Name Role Phone Dillan Jain MD Primary Care Provider [phone] Allergies Active Allergy Reactions Criticality Noted Date Comments Naproxen Sodium Diarrhea 03/28/2025 Stomach cramps Codeine Nausea And Vomiting,Other (See Comments) 03/28/2025 Stomach cramps Propoxyphene N-Acetaminophen Nausea And Vomiting,Other (See Comments) 03/28/2025 Stomach cramps Oxycodone Nausea And Vomiting,Other (See Comments) 03/28/2025 Stomach cramps Medications allopurinoL (ZYLOPRIM) 100 MG tablet Take 1 tablet (100 mg total) by mouth daily. Active atorvastatin (LIPITOR) 40 MG tablet Take 1 tablet (40 mg total) by mouth nightly. Active esomeprazole (NexIUM) 20 MG capsule Take 1 capsule (20 mg total) by mouth Daily (0600). Active gabapentin (NEURONTIN) 600 MG tablet Take 1 tablet (600 mg total) by mouth nightly Can take up to 3 times per day . Active hydroxychloroqu ine (PLAQUENIL) 200 mg tablet Take 1 tablet (200 mg total) by mouth 2 (two) times daily. Active losartan (COZAAR) 50 MG tablet Take 1 tablet (50 mg total) by mouth in the morning. Active potassium chloride (KLOR-CON) 10 MEQ CR tablet Take 1 tablet (10 mEq total) by mouth daily. Active primidone (MYSOLINE) 50 MG tablet Take 1 tablet (50 mg total) by mouth 2 (two) times daily. Active spironolactone (ALDACTONE) 25 MG tablet Take 1 tablet (25 mg total) by mouth daily. Active coenzyme Q10 100 mg capsule Take 2 capsules (200 mg total) by mouth daily. Active albuterol 90 mcg/actuation inhaler Inhale 1 puff by mouth every 6 (six) hours as needed for wheezing. Active triamterene-hyd roCHLOROthiazid e (MAXZIDE-25) 37.5-25 mg per tablet Take 1 tablet by mouth daily. Active metoprolol succinate (TOPROL-XL) 50 MG 24 hr tablet Take 1 tablet (50 mg total) by mouth daily. Active meloxicam (MOBIC) 7.5 MG tablet Take 1 tablet (7.5 mg total) by mouth daily. 30 tablet 04/01/2025 04/01/20 26 Active ondansetron (ZOFRAN) 4 MG tablet Take 1 tablet (4 mg total) by mouth 4 (four) times daily as needed for nausea for up to 60 doses. 30 tablet 04/01/2025 Active Active Problems Problem Noted Date Diagnosed Date HTN (hypertension) 03/25/2025 Asthma 03/25/2025 Diabetes mellitus, type 2 03/25/2025 Encounters Date Type Department Care Team Description 03/31/2025 8:19 AM EDT Anesthesia Event [facility] Operating Room [address] [place] [address] Blanche Jansen MD [place], Dale Alan, MD 03/31/2025 7:30 AM EDT - 03/31/2025 9:41 AM EDT Surgery [facility] Operating Room 1 [place] [address] Carly Bob MD LEFT TOTAL KNEE ARTHROPLASTY 03/31/2025 5:31 AM EDT - 04/01/2025 2:20 PM EDT Hospital Encounter [facility] Orthopedic & Neurosurgery Unit [address] [place] [address] Carly Bob MD Discharge Disposition: Home or Self Care 03/31/2025 Travel 03/24/2025 Travel from Last 3 Months Social History Tobacco Use Types Packs/Day Years Used Date Smoking Tobacco: Never Smokeless Tobacco: Never Tobacco Cessation:Counseling Given: Not Answered Alcohol Use Standard Drinks/Week Comments Never 0 (1 standard drink = 0.6 oz pur e alcohol) Comments Unknown Sex and Gender Information Value Date Recorded Sex Assigned at Not on file Legal Sex Female 12:39 PM CDT Gender Identity Not on file Sexual Orientation Not on file Last Filed Vital Signs Vital Sign Reading Time Taken Comments Blood Pressure 142/60 04/01/2025 11:45 AM EDT Pulse 79 04/01/2025 11:45 AM EDT Temperature 36.3 C (97.3 F) 04/01/2025 11:45 AM EDT Respiratory Rate 14 04/01/2025 11:45 AM EDT Oxygen Saturation 95% 04/01/2025 11:45 AM EDT Inhaled Oxygen Concentration - - Weight 115 kg (253 lb 8 oz) 03/31/2025 7:07 AM E DT Height 162.6 cm (5' 4 ) 03/31/2025 7:07 AM EDT Body Mass Index 43.51 03/31/2025 7:07 AM EDT Plan of Treatment Health Maintenance Due Date Last Done Comments CT Colonography 1953 Colonoscopy 1953 Colorectal Cancer Screening 1953 DXA SCAN 1953 Diabetic Kidney Health Evalu ation (KED) 1953 FOBT/FIT 1953 Fit-DNA (Cologuard) 1953 Sigmoidoscopy 1953 Diabetic Eye Exam 1963 Depression Screening (12+) 1965 Hepatitis C Screening 1971 Medicare Initial AWV G0438 11/20/2012 Respiratory Syncytial Virus (RSV) Adult or (1 - Risk 60-74 years 1-dose series) 2013 Pneumococcal 50+ years (2 of 2 - PPSV23, PCV20, or PCV21) 12/10/2018 10/15/2018 Falls Risk Screening 08/21/2024 Hemoglobin A1C 03/25/2025 COVID-19 VACCINE (1 - 2023-2 5 season) 2025 Influenza Vaccine (#1) 2025 2, 05/25/2020, 04/29/2019, Additional history exists Breast Cancer Screening 12/03/2025 12/04/19 24, 12/04/2023, 01/26/2022, Additional history exists Tobacco Cessation Counseling and Screening (12+) 03/31/2026 03/31/2025 DTAP/TDAP/TD VACCINES (2 - T d or Tdap) 12/24/2028 12/24/2018 Shingles Vaccine (Zoster) Completed 12/26/2018, Medical Devices Implanted Type Area Java Sql Developer Device Identifier Shelf Expiration Date Model / Serial / Lot Cement Bone Smplx Hv 6194-1-001 - [id number] Implanted:Qt y: 2 on 03/31/2025 by Carly Bob MD at [facility] IMPLANTS Left: Knee IDRIS:[employer] [id number] 07/20/2026 6194-1-00 1 / / [id number] F Articular Surface 11mm - Lt [id number]- 11 - [id number] Implanted:Qt y: 1 on 03/31/2025 by Carly Bob MD at [facility] TOTAL JOINT CONSTRUCT Left: Knee TORREY:TORREY [id number] 07/07/2029 [id number] 03-31 [id number] Psn Fem Narr Tony Sz 10 L [id number]- 01 - [id number] Implanted:Qt y: 1 on 03/31/2025 by Carly Bob MD at [facility] TOTAL JOINT CONSTRUCT Left: Knee TORREY:TORREY [id number] 11/26/2034 [id number] 68- / / [id number] Psn Tibia 0 Keel L Sz E [id number]- 01 - [id number] Implanted:Qt y: 1 on 03/31/2025 by Carly Bob MD at [facility] TOTAL JOINT CONSTRUCT Left: Knee TORREY:TORREY US 01/08/2035 [id number] 71- / / [id number] Procedures Procedure Name Priority Date/Time Associated Diagnosis Comments BASIC METABOLIC PANEL Routine 04/01/2025 2:04 AM EDT CBC HEMOGRAM (SJ-BKR) Routine 04/01/2025 2:04 AM EDT HEMOGLOBIN AND HEMATOCRIT STAT 03/31/2025 10:35 AM EDT ANESTHESIA INTUBATION Routine 03/31/2025 8:28 AM EDT CA ARTHRP KNE CONDYLE&PLATU MEDIAL&LAT COMPARTMENTS 03/31/2025 8:18 AM EDT Unilateral primary osteoarthritis, left knee HC PERIPHERAL NERVE BLOCK SINGLE SHOT Routine 03/31/2025 7:30 AM EDT NOVA GLUCOSE POC Routine 03/31/2025 7:12 AM EDT FS_MODEL_IP_ECG 12-LEAD Routine 03/31/2025 6:34 AM EDT EKG-SCANNED 03/31/2025 from Last 3 Months Results * (ABNORMAL) CBC (Hemogram only) (04/01/2025 2:04 AM EDT) WBC 17.3(H) 4.0 - 10.0 K/ L 04/01/2025 2:31 AM EDT [facility] RBC 3.74(L) 3.93 - 5.22 M/ L 04/01/2025 2:31 AM EDT [facility] Hemoglobin 11.6 11.2 - 15.7 GM/DL 04/01/2025 2:31 AM EDT [facility] Hematocrit 34.7 34.1 - 44.9 % 04/01/2025 2:31 AM EDT [facility] MCV 93 79 - 95 fL 04/01/2025 2:31 AM EDT [facility] MCH 31.0 25.6 - 32.2 pg 04/01/2025 2:31 AM EDT [facility] MCHC 33.4 32.2 - 35.5 GM/DL 04/01/2025 2:31 AM EDT [facility] RDW 13.3 11.7 - 14.4 % 04/01/2025 2:31 AM EDT [facility] Platelets 237 140 - 375 K/CU MM 04/01/2025 2:31 AM EDT [facility] MPV 11.0 9.4 - 12.3 fL 04/01/2025 2:31 AM EDT [facility] Blood Venipuncture / Unknown 04/01/2025 2:04 AM EDT 04/01/2025 2:25 AM EDT us Carly Bob MD LAB BLOOD ORDERABLES Final Result [facility] [address] [phone] * (ABNORMAL) Basic Metabolic Panel (04/01/2025 2:04 AM EDT) Sodium 134(L) 136 - 145 meq/L 04/01/2025 2:53 AM EDT [facility] Potassium 4.9 3.4 - 5.1 meq/L 04/01/2025 2:53 AM EDT [facility] CO2 22 22 - 29 meq/L 04/01/2025 2:53 AM EDT [facility] Chloride 104 98 - 112 meq/L 04/01/2025 2:53 AM EDT [facility] Glucose 136(H) 82 - 115 mg/dL 04/01/2025 2:53 AM EDT [facility] BUN 27.9(H) 9.8 - 20.1 mg/dL 04/01/2025 2:53 AM EDT [facility] Creatinine 1.14(H) 0.57 - 1.11 mg/dL 04/01/2025 2:53 AM EDT [facility] BUN/Creatinine 24(H) 8 - 20 04/01/2025 2:53 AM EDT [facility] Calcium 8.4 8.4 - 10.2 mg/dL 04/01/2025 2:53 AM EDT [facility] Anion Gap 13(H) 4 - 12 04/01/2025 2:53 AM EDT [facility] eGFR (mL/min/1.73m2) 51(L) >=60 mL/min/1.7 3m2 04/01/2025 2:53 AM EDT [facility] Osmolality Calc 275.8 mOsm/kg 2:53 AM EDT [facility] Blood Venipuncture / Unknown 04/01/2025 2:04 AM EDT 04/01/2025 2:26 AM EDT Narrative [facility] - 04/01/2025 2:53 AM EDT Specimen slightly hemolyzed Carly Bob MD LAB BLOOD ORDERABLES Final Result [facility] [address] [phone] * Hemoglobin and hematocrit (03/31/2025 10:35 AM EDT) Hemoglobin 12.5 11.2 - 15.7 GM/DL 03/31/2025 10:41 AM EDT [facility] Hematocrit 37.9 34.1 - 44.9 % 03/31/2025 10:41 AM EDT [facility] Blood Venipuncture / Unknown 03/31/2025 10:35 AM EDT 03/31/2025 10:39 AM EDT Carly Bob MD LAB BLOOD ORDERABLES Final Result [facility] [address] [phone] * AN SINGLE LUMEN INTUBATION (03/31/2025 8:28 AM EDT) Narrative Juan C Randhawa CRNA - 03/31/2025 8:28 AM EDT Juan C Randhawa CRNA 03/31/2025 8:37 AM Intubation Authorized by: Blanche Jansen MD Performed by: Juan C Randhawa CRNA Date/Time: 03/31/2025 8:28 AM Urgency: elective Indications and Patient Condition Indications for airway management: anesthesia and airway protection Spontaneous Ventilation: absent Sedation level: general anesthesia Preoxygenated: yes Patient position: sniffing no Mask difficulty assessment: 0 - not attempted no Final Airway Details Final airway type: supraglottic airway Supraglottic airway type: classic Size: 4 Number of attempts at approach: 1 Number of other approaches attempted: 0 Blanche Jansen MD ANESTHESIA ORDERABLES Final Re sult * HC PERIPHERAL NERVE BLOCK SINGLE SHOT (03/31/2025 7:30 AM EDT) Evangelista Mitchell MD - 03/31/2025 7:30 AM EDT Evangelista Mary MD 03/31/2025 7:43 AM Peripheral Nerve Block Authorized by: Evangelista Mary MD Performed by: Evangelista Mary MD Patient location during procedure: pre-op Start time: 03/31/2025 7:30 AM Reason for block: at surgeon's request and post-op pain management Preanesthetic Checklist Completed: patient identified, IV checked, site marked, risks and benefits discussed, surgical consent, monitors and equipment checked, pre-op evaluation and timeout performed Peripheral Block Patient position: supine Prep: ChloraPrep Patient monitoring: heart rate, lap checker and continuous pulse ox Block type: adductor canal (and ipack) Laterality: left Injection technique: single-shot Guidance: ultrasound guided Needle Needle type: stimuplex 360. Needle gauge: 20 G Needle length: 10 cm Needle localization: ultrasound guidance Assessment Injection assessment: negative aspiration for heme, incremental injection and local visualized surrounding nerve on ultrasound (visualized under the artery) Paresthesia pain: none Heart rate change: no Slow fractionated injection: yes Additional Notes Ropivacaine 0.35% 30ml with epi for adductor canal Ropivacaine 0.2% 20ml with epi for ipack block All with clonidine 100mcg/depomedrol 80mg Evangelista Mary MD ANESTHESIA ORDERABLES Final Result * Glucose, Nova Meter (03/31/2025 7:12 AM EDT) POC-GLUCOSE 80 70 - 110 mg/dL 03/31/2025 7:13 AM EDT [facility] Comment: In the event of poor peripheral blood flow, venous or arterial blood should be used due to the potential of erroneous results. Notified Nurse RBV Security Operations Analyst [id number] 03/31/2025 7:13 AM EDT [facility] Blood WHOLE BLOOD / Unknown 03/31/2025 7:12 AM EDT 03/31/2025 7:13 AM EDT Narrative [facility] - 03/31/2025 7:13 AM EDT Security Operations Analyst ID is - [id number] Carly Bob MD POINT OF CARE TEST ORDERAB LES Final Result Performing Organization Address [facility] Co de Phone Number [facility] [address] [phone] * ECG 12 lead (03/31/2025 6:34 AM EDT) VENTRICULAR RATE EKG/MIN 76 BPM GE MUSE ATRIAL RATE (MCT) 76 BPM GE MUSE CA Interval 180 ms GE MUSE QRS-INTERVAL (MSEC) 96 ms GE MUSE QT Interval 422 ms GE MUSE QTC Interval 474 ms GE MUSE P [place] 26 degrees GE MUSE R AXIS (MCT) -31 degrees GE MUSE T Wave [place] 18 degrees GE MUSE [place] Diagnosis Normal sinus rhythm Left axis deviation Nonspecific T wave abnormality Abnormal ECG No previous ECGs available Confirmed by Syed Armijo ([id number]) on 03/31/2025 9:05:58 AM GE MUSE 03/31/2025 6:34 AM EDT 03/31/2025 9:05 AM EDT us Gonzalo Norris MD ECG ORDERABLES Final Result Performing Organization Address [facility] Co de Phone Number GE MUSE * EKG-SCANNED (03/31/2025) Narrative 03/31/2025 Ordered by an unspecified provider. us Default Scanning Provider SCAN ORDERS Final Result from Last 3 Months Insurance Advance Directives For more information, please contact: [phone] * Full Code (Latest Code Status on File) Date Activated Date Inactivated Comments 03/31/2025 9:47 AM 04/01/2025 3:21 PM * Full Code Date Activated Date Inactivated Comments 03/31/2025 6:12 AM 03/31/2025 9:47 AM Care Teams Beef Cattle Specialist Relationship Specialty Start Date End Date Dillan Jain MD [address] [place] [address] PCP - General Family Medicine 03/24/25
--- OUTSIDE RECORDS SUMMARY | 2025-06-11 14:23 | XMS_ITS | Encounter Summary ---
Author Organization [facility] yste Address [address] [place] [address] Care Team Providers Care Other Sports Official Name Role Phone Dillan Jain MD Primary Care Provider [phone] Encounter Details Date Type Department Care Team (Late st Contact Info) Description 06/06/2025 Telephone [facility] R[facility] [address] [address] DO [address] [address] Social History Tobacco Use Types Packs/Day Years [...] Telephone Encounter - Michelle Luna MA - 06/06/2025 4:01 PM EDT Jennifer with [facility] OP Registration called to verify we had the correct fax number. [phone]. Theydidn't receive lab orders for pt. I re-faxed them. -AVA Sousa * Telephone Encounter - Sarah Canales RN - 06/06/2025 3:38 PM EDT Faxed labs to [phone] per pt. request documented in this encounter Plan of Treatment Upcoming Encounters Date Type Department Care Team (Late st Contact Info) Description 12/08/2025 2:45 PM EDT Office Visit [facility] [address] [address] DO [address] [address] documented as of this encounter Visit Diagnoses Not on filedocumented in this encounter Care Teams Other Sports Official Relationship Specialty Start Date End Date Dillan Jain MD [address] [facility] [address] [facility] [address] [place] [address] PCP - General Family Medicine 05/28/24 documented as of this encounter
--- OUTSIDE RECORDS SUMMARY | 2025-06-11 14:23 | XMS_ITS | Referral Summary ---
Author Organization [employer] ([place], [place], [place], [place]) Address [address] [place] [address] Care Team Providers Care Account Analyst Name Role Phone Dillan Jain MD Primary Care Provider [phone] Encounters Date Type Department Care Team Description 03/31/2025 5:31 AM EDT - 04/01/2025 2:20 PM EDT Hospital Encounter [facility] Orthopedic & Neurosurgery Unit [address] [place] [address] Carly Bob MD Discharge Disposition: Home or Self Care 03/31/2025 Travel 03/31/2025 7:30 AM EDT - 03/31/2025 9:41 AM EDT Surgery [facility] Operating Room 1 [place] [address] Carly Bob MD LEFT TOTAL KNEE ARTHROPLASTY 03/31/2025 8:19 AM EDT Anesthesia Event [facility] Operating Room 1 [place] [address] Blanche Jansen MD [facility], Stan Mckeon MD 03/24/2025 Travel from Last 3 Months Allergies Active Allergy Reactions Criticality Noted Date [...] Asthma 03/25/2025 Diabetes mellitus, type 2 03/25/2025 Social History Tobacco Use Types Packs/Day Years [...] 03/31/2025 7:07 AM EDT Plan of Treatment Not on file Medical Devices Implanted Type Area Cnc Mill Programmer Device Identifier Shelf Expiration Date Model / Serial / Lot Cement Bone Smplx Hv 6194-1-001 - [id number] Implanted:Qt y: 2 on 03/31/2025 by Carly Bob MD at [facility] IMPLANTS Left: Knee IDRIS:[employer] [id number] 07/20/2026 6194-1-00 [id number] F Articular Surface 11mm 03-31 Lt [id number]- 11 - [id number] Implanted:Qt y: 1 on 03/31/2025 by Carly Bob MD at [facility] TOTAL JOINT CONSTRUCT Left: Knee TORREY:TORREY [id number] 07/07/2029 [id number] 03-31 [id number] Psn Fem Narr Tony Sz 10 L [id number]- 01 - [id number] Implanted:Qt y: 1 on 03/31/2025 by Carly Bob MD at [facility] TOTAL JOINT CONSTRUCT Left: Knee TORREY:TORREY [place] [id number] 11/26/2034 [id number] 68- [id number] Psn Tibia 0 Keel L Gregoria Tillman 76-6838-905- 01 - [id number] Implanted:Qt y: 1 on 03/31/2025 by Carly Bob MD at [facility] TOTAL JOINT CONSTRUCT Left: Knee TORREY:TORREY 01/08/2035 [id number] 71- [id number] Procedures Procedure Name Priority Date/Time Associated Diagnosis Comments BASIC METABOLIC PANEL Routine 04/01/2025 2:04 AM EDT CBC HEMOGRAM (SJ-BKR) Routine 04/01/2025 2:04 AM EDT HEMOGLOBIN AND HEMATOCRIT STAT 03/31/2025 10:35 AM EDT ANESTHESIA INTUBATION Routine 03/31/2025 8:28 AM EDT FL ARTHRP KNE CONDYLE&PLATU MEDIAL&LAT COMPARTMENTS 03/31/2025 8:18 [...] 10.0 K/ L 04/01/2025 2:[address] [facility] [place] RBC 3.74(L) 3.93 - 5.22 M/ L 04/01/2025 2:[address] [facility] [place] Hemoglobin 11.6 11.2 - 15.7 GM/DL 04/01/2025 2:[address] [facility] [place] Hematocrit 34.7 34.1 - 44.9 % 04/01/2025 2:[address] [facility] [place] MCV 93 79 - 95 fL 04/01/2025 2:[address] [facility] [place] MCH 31.0 25.6 - 32.2 pg 04/01/2025 2:[address] [facility] [place] MCHC 33.4 32.2 - 35.5 GM/DL 04/01/2025 2:[address] [facility] [place] RDW 13.3 11.7 - 14.4 % 04/01/2025 2:[address] [facility] [place] Platelets 237 140 - 375 K/CU MM 04/01/2025 2:[address] [facility] [place] MPV 11.0 9.4 - 12.3 fL 04/01/2025 2:[address] [facility] [place] Blood Venipuncture / Unknown 04/01/2025 2:04 AM EDT 04/01/2025 2:25 AM EDT Carly Bob MD LAB BLOOD ORDERABLES Final Result [facility] [place] [address] [phone] * (ABNORMAL) Basic Metabolic Panel (04/01/2025 2:04 AM EDT) Sodium 134(L) 136 - 145 meq/L 04/01/2025 2:[address] [facility] [place] Potassium 4.9 3.4 - 5.1 meq/L 04/01/2025 2:[address] [facility] [place] CO2 22 22 - 29 meq/L 04/01/2025 2:[address] [facility] [place] Chloride 104 98 - 112 meq/L 04/01/2025 2:[address] [facility] [place] Glucose 136(H) 82 - 115 mg/dL 04/01/2025 2:[address] [facility] [place] BUN 27.9(H) 9.8 - 20.1 mg/dL 04/01/2025 2:[address] [facility] [place] Creatinine 1.14(H) 0.57 - 1.11 mg/dL 04/01/2025 2:[address] [facility] [place] BUN/Creatinine 24(H) 8 - 20 04/01/2025 2:[address] [facility] [place] Calcium 8.4 8.4 - 10.2 mg/dL 04/01/2025 2:[address] [facility] [place] Anion Gap 13(H) 4 - 12 04/01/2025 2:[address] [facility] [place] eGFR (mL/min/1.73m2) 51(L) >=60 mL/min/1.7 3m2 04/01/2025 2:[address] [facility] [place] Osmolality Calc 275.8 mOsm/kg 2:[address] [facility] [place] Blood Venipuncture / Unknown 04/01/2025 2:04 AM EDT 04/01/2025 2:[address] [facility] [place] - 04/01/2025 2:53 AM EDT Specimen slightly hemolyzed Carly Bob MD LAB BLOOD ORDERABLES Final Result Performing Organization Address City/State/[facility] Co de Phone Number [facility] [place] [address] [phone] * Hemoglobin and hematocrit (03/31/2025 10:35 AM EDT) Hemoglobin 12.5 11.2 - 15.7 GM/DL 03/31/2025 10:[address] [facility] [place] Hematocrit 37.9 34.1 - 44.9 % 03/31/2025 10:[address] [facility] [place] Blood Venipuncture / Unknown 03/31/2025 10:35 AM EDT 03/31/2025 10:39 AM EDT Carly Bob MD LAB BLOOD ORDERABLES Final Result [facility] [place] 1 [place] [address], [facility] [phone] * AN SINGLE LUMEN INTUBATION (03/31/2025 8:28 AM EDT) Juan C Dey CRNA - 03/31/2025 8:28 AM EDT Juan [...] supine Prep: ChloraPrep Patient monitoring: heart rate, campus monitor and continuous pulse ox Block type: adductor [...] ipack block All with clonidine 100mcg/depomedrol 80mg us Evangelista Mary MD ANESTHESIA ORDERABLES Final Result * Glucose, Nova Meter (03/31/2025 7:12 AM EDT) Pathologist [facility] POC-GLUCOSE 80 70 - 110 mg/dL 03/31/2025 7:[address] [facility] [place] Comment: In the event of poor peripheral blood flow, venous or arterial blood should be used due to the potential of erroneous results. Notified Nurse [employer] [id number] 03/31/2025 7:[address] [facility] [place] Blood WHOLE BLOOD / Unknown 03/31/2025 7:12 AM EDT 03/31/2025 7:[address] [facility] [place] - 03/31/2025 7:13 AM EDT Biopharmaceutical Rep ID is - [id number] us Carly Bob MD POINT OF CARE TEST ORDERAB LES Final Result [facility] [place] [address] [place] [address] * ECG 12 lead (03/31/2025 6:34 AM EDT) Pathologist [facility] VENTRICULAR RATE EKG/MIN 76 BPM GE MUSE ATRIAL RATE (MCT) 76 BPM GE MUSE FL Interval 180 ms GE MUSE QRS-INTERVAL (MSEC) 96 ms GE MUSE QT Interval 422 ms GE MUSE QTC Interval 474 ms GE MUSE P Avant 26 degrees GE MUSE R AXIS (MCT) -31 degrees GE MUSE T Wave Avant 18 degrees GE MUSE [place] Diagnosis Normal sinus rhythm Left axis deviation Nonspecific T wave abnormality Abnormal ECG No previous ECGs available Confirmed by Syed Armijo ([id number]) on 03/31/2025 9:05:58 AM GE MUSE 03/31/2025 6:34 AM EDT 03/31/2025 9:05 AM EDT us Gonzalo Norris MD ECG ORDERABLES Final Result GE MUSE * EKG-SCANNED (03/31/2025) Narrative 03/31/2025 Ordered by an unspecified provider. us Default Scanning Provider SCAN ORDERS Final Result from Last 3 Months Insurance MEDICARE PART A B Advance Directives For more information, please contact: [phone] * Full Code (Latest Code Status on File) Date Activated Date Inactivated Comments 03/31/2025 9:47 AM 04/01/2025 3:21 PM * Full Code Date Activated Date Inactivated Comments 03/31/2025 6:12 AM 03/31/2025 9:47 AM Care Teams Account Analyst Relationship Specialty Start Date End Date Dillan Jain MD [address] [place] [address] PCP - General Family Medicine 03/24/25
--- OUTSIDE RECORDS SUMMARY | 2025-06-11 14:23 | XMS_ITS | Clinical Summary ---
Author Organization [facility] Address [facility] [place] [address] Phone Care Team Providers Care Medical Records Director Name Role Phone Dillan Jain MD Primary Care Provider +1 -[phone] Allergies Active Allergy Reactions Criticality Noted Date [...] PCV21) 10/15/2019 10/15/2018 COVID-19 Vaccine (1 - 2024- season) 2025 Influenza Vaccine (#1) 2025 2, [...] EDT Impressions 12/04/2023 3:40 PM EDT Negative (WQQ-Aebsmkpy-3) ~ RECOMMENDATION: Routine screening mammogram in 1 [...] the next mammogram, in accordance with the [place] [employer] and the Society of Breast Imaging recommendations. Narrative 12/04/2023 3:40 PM EDT Procedure:MM MAMMO DIGITAL LIGIA SCREEN BILAT ~ Reason for exam: screening, asymptomatic. Z12.31-Encounter for screening mammogram for malignant neoplasm of xyweer-YCF-89-CM ~ MM MAMMO DIGITAL LIGIA SCREEN BILAT [...] for screening mammogram for malignant neoplasm of wfnerl-DEO-71-CM ~ MM MAMMO DIGITAL LIGIA SCREEN BILAT Bilateral CC and MLO view(s) were taken. There are scattered fibroglandular densities. Prior study comparison: Compared with prior studies the most recentbeing 01/26/22, 01/22/21 No mammographic evidence of malignancy. ~ IMPRESSION: Negative (HKT-Lqquxuyd-3) ~ RECOMMENDATION: Routine screening mammogram in 1 [...] the next mammogram, in accordance with the [place] [employer] and the Society of Breast Imaging recommendations. Dillan Jain MD IMG MAMMOGRAPHY ORDERABLE S Final Result from Last 3 Months or Most Recently Relevant to Health Maintenance Insurance MEDICARE [place] PART A AND B [facility] MED[employer] [place] MEDICARE [place] PART A AND B [facility] MEDICARE [employer] Care Teams Medical Records Director Relationship Specialty Start Date End Date Dillan Jain MD [facility] [address] [place] [address] PCP - General Family Medicine 11/30/18
--- OUTSIDE RECORDS SUMMARY | 2025-06-11 14:24 | XMS_ITS | Continuity of Care Document ---
Author Organization [facility], ORTHOPEDICS [address] [place] [address] Care Team Providers Care Food Preparation Worker Name Role Phone ABDI GUTIÉRREZ Primary Care Provider ABDI GUTIÉRREZ Referring Provider KYREE BUTLER Orthopedic Surgeon Assessment No assessment recorded. Plan of Treatment Reminders Order Date Submit Date Provider Last Modified By Organization Details Last Modified Time Details Appointments RECHECK 2024 03:00P M SHANNAN VEE PA-C Not available Not available Not available Lab None recorded. Referral None recorded. Procedures None recorded. Surgeries None recorded. Imaging None recorded. Medication Orders meloxicam 7.5 mg tablet 2024 025 [facility], [address], [address], 05/14/2025 15:17:59 Patient TargetsNo targets recorded. Patient InstructionsNo instructions recorded. Reason for Referral None Reported. Results Created Date Observation Date Name Description Value Unit Range Abnormal Flag Note LastModifiedBy Organization Detail LastModifiedTime 04/22/2004/22/2025 [facility] [address] [place] [address] Patien t Name: JAREK johnson : [address] Orderi ng Provid er: SHANNAN VEE EXAM DATE: 2024 EXAM: XR LT KNEE 3 VIEWS COMPAR PATRICIA: 7/9/20 25 HISTOR Y: Follow -up of prior surger y. FINDIN GS: There has been interv al placem [...] Audelia cheung MD on 04/22/20 10:[address] Radiology [address] [place], [address], 04/22/2025 13:01:57 05/20/2005/14/2025 XR, knee, 3 view [facility] [address] [place] [address] Patien t Name: JAREK johnson : [address] [facility] Provid er: SHANNAN VEE EXAM DATE: [...] ly Signed By: Roldan Orona MD on 8:[id number] [facility] [address] [place], [address], 05/21/2025 08:20:59 Result Notes None recorded. 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 Procedures Surgical History Date Name Laterality Status Provider Name and Address Organization Details Recorded Time 5 total replacement of left knee joint completed Cathy Gill [facility] 04/22/2025 08:14:17 PCM Visit completed Tamiko Johnson [facility] 04/14/2025 14:21:58 total replacement of right hip joint completed Cathyrhett Gill [facility] 03/04/2025 15:24:13 Imaging Results None recorded. Procedure Notes None recorded. Medical Equipment None Reported. Allergies Allergen ID Allergen Name Allergen Category Reaction Reaction Severity Criticality Documentation Date Start Date Code Code System Note Provider Name and Address Organization Details Recorded Time 508739 codeine medicatio n Not available Not available Not available 05/06/2024 2670 RxNorm Tamra Domonique [facility] 4 09:35:48 505330 naproxen medicatio n Not available Not available Not available 05/06/2024 7258 RxNorm Tamra Domonique [facility] 4 09:35:54 Medications Name Sig [...] Updated DateTime 05/14/2025 162.56 cm 43.4 kg/m2 164819.87 g Slava Smithes [facility] 05/14/2025 14:38:34 Social History Question Answer Notes LastModified by Dining Secretary Details LastModified Time Tobacco Smoking Status Never Smoker Cathy Gill [facility] 03/04/2025 15:19:07 What Was The Date Of Your Most Recent Tobacco Screening? 03/04/2025 [email or web address] Information not available 03/04/2025 Has Tobacco Cessation Counseling Been Provided? No [email or web address] Information not available 03/04/2025 Sex: Female Functional Status Question Answer Note LastModified by [employer] Details LastModified Time Do you use any illicit or recreational drugs? No [email or web address] Information not available 03/04/2025 Do you or have you ever used any other forms of tobacco or nicotine? No [email or web address] Information not available 03/04/2025 What is your level of alcohol consumption? None [email or web address] Information not available 03/04/2025 Mental Status None recorded. Family History Nothing Reported. Medical History Condition Response Gout Y Other N Anxiety/Depression N Thyroid Disease N Kidney Stones N Hernia N COPD N Glaucoma N Pneumonia N Anesthesia Complications N Arthritis N Blood Clot N Cancer N Stroke N Blood Thinners N Alcohol Overuse/Alcohol Abuse N High Cholesterol Y Liver Disease N Kidney Disease N Allergies/Hayfever N Heart Conditions N Migraines N Skin Problems N Immune System Disorder N Heart Attack (AK) N Mental Illness N Neurological Problems N Diabetes N Rheumatic Fever N Bleeding Disorder N Seizures/Epilepsy N Tuberculosis N Genetic Disorder N AIDS/HIV N Asthma Y Sleep Apnea N Included as Review of Systems N Hypertension Y Osteoporosis N Gynecological HistoryNo gynecological history recorded. Obstetrics History GPAL:G 0 P 0 0 0 0 Immunizations Vaccine Type Date Status Note Provider Nam e and Address Organization Details Recorded Time zoster recombinant 9 completed Cathy Gill [facility] 03/04/2025 15:18:20 [facility]oster recombinant 9 [facility] 15:18:20 Influenza, high-dose, quadrivalent, PF 2 completed Cathy Gill [facility] 03/04/2025 15:18:20 Tdap 9 completed Cathy Gill [facility] 03/04/2025 15:18:20 Pneumococcal conjugate PCV 13 9 completed Cathy Gill [facility] 03/04/2025 15:18:20 Influenza, high-dose, trivalent, PF 9 completed Cathy Gill [facility] 03/04/2025 15:18:20 Influenza, high-dose, trivalent, PF 0 completed Cathy Gill [facility] 03/04/2025 15:18:20 Influenza, high-dose, trivalent, PF 8 completed Cathy Gill [facility] 03/04/2025 15:18:20 Past Encounters Encounter ID Performer Location Encounter Start Date Encounter Closed Date Diagnosis/Indication Diagnosis SNOMED-CT Code Diagnosis ICD10 Code Diagnosis IMO Codes Diagnosis Note [id number] SHANNAN VEE PA-C [facility] [address] [place] [address] 04/22/2025 09:41:13 04/22/2025 10:44:35 [id number] SHANNAN VEE PA-C [facility] [address] [place] [address] 05/14/2025 13:52:09 05/14/2025 15:21:36 History of left total knee replacement 2791293086 750050 Z96.652 [id number] Pt is here today for 6 week [...] Member ID [place] Member ID Guarantor Name 05/14/2025 1 [place] Sajnana Pierson [id number] Sanjana Pierson 05/14/2025 2 [employer] SUPPLEMENTAL - [employer] (MEDICARE SUPPLEMENT) Sanjana Pierson [id number] Sanjana Pierson Notes Date Note Type Note Provider Name and Address Organization Details Recorded Time 05/14/2025 text/html 05/14/25Patient is 6 weeks s/p L TKA, on 03-31-2025.Pain is improving incision healing without complication.Ambul ating with canePT: HEP Denies fevers, chills, or [...] of pain medicine. SHANNAN VEE PA-C [address] [place], [address], [facility] 05/14/2025 15:22:49 OBGyn Episode No OBEpisode recorded.
[2025-06-11 15:04] LABS: Creatine Kinase 125 U/L (30-135)
== END 2025-06-11 23:59 | disposition home or self-care (01) ==
LOC: LAB 13:40
PROVIDERS: PCP Family Medicine; Visit Provider Internal Medicine
DX: M32.9 Systemic lupus erythematosus, unspecified (principal); M15.0 Primary generalized (osteo)arthritis; Z79.899 Other long term (current) drug therapy; R53.83 Other fatigue
CPT/HCPCS: 36415; 82550; 85025; 86160

== ENCOUNTER 2025-06-12 13:32 | Outpatient (CLI) | payer MEDICARE, SELFPAY ==
[2025-06-12 13:40] LABS: Microscopic, Urine URINE MICROSCOPIC (MICROSCOPIC)
[2025-06-12 14:56] LABS: Bilirubin,Urine Negative (Negative); Color,Urine YELLOW (Yellow); Glucose,Urine (UA) Negative (Negative); Ketones,Urine Negative (Negative); Leukocyte Esterase,Urine 1+ (Negative); PH,Urine 6.0 (5.0-8.5); Protein,Urine Negative (Negative); Urobilinogen,Urine 0.2 EU/dl (0.2)
[2025-06-12 15:08] LABS: Specific Gravity, Urine 1.020 (1.005-1.030)
[2025-06-12 19:40] LABS: Amorphous Sediment,Urine 1+ /lpf; Bacteria,Urine 4+ /lpf; Squamous Epithelial Cell,Urine 20-50 #/hpf (0-5); WBC,Urine 20-50 #/hpf (0-3)
== END 2025-06-12 23:59 | disposition home or self-care (01) ==
LOC: LAB 13:34
PROVIDERS: PCP Family Medicine; Visit Provider Internal Medicine
DX: M32.9 Systemic lupus erythematosus, unspecified (principal); M15.0 Primary generalized (osteo)arthritis; Z79.899 Other long term (current) drug therapy
CPT/HCPCS: 81001; 87086

== ENCOUNTER 2025-07-03 13:09 | Outpatient (CLI) | payer MEDICARE, SELFPAY ==
--- OUTSIDE RECORDS SUMMARY | 2024-05-20 05:30 | XMS_ITS ---
Author Organization [facility] [facility] Address [address] [facility] [address] [facility] [address] [place] [phone] Care Team Providers Care Extension Course Coordinator Name Role Phone Yannick Jain Primary Care Provider Allergies Allergen (clinical drug ingredient) Drug/Non Drug Allergy documented on EMR Reaction Allergy Type Onset Date Status Aleve Unknown Drug Allergy Active acetaminophen / oxycodone Percocet Unknown Drug Allergy Active codeine Codeine sick to stomach Drug Allergy A ctive REASON FOR VISIT 6 week f/u Medications Medication SIG (Take, Route, Frequency, Duration) Notes Start Date End Date Status NexIUM 24HR 20 MG 1 cap(s) orally once a day (in the morning) Active Hydroxychloroquine Sulfate 2 00 MG 1 tab twice daily Active Losartan Potassium 50 MG 1 tablet Orally Once a day; Duration: 30 day(s) Active Metoprolol Succinate ER 50 MG 1 tab(s) o rally once a day; Duration: 30 day(s) Active Aspirin Adult Low Dose 81 MG 1 tab(s) or ally once a day Active Gabapentin 300 MG 1 cap(s) orally 2 times a day 12/22/2023 Active traMADol HCl 50 MG 1 tablet as needed Orally three times a day as needed 07/10/2023 Active Potassium Chloride ER 10 MEQ Take 1 tabl et by mouth once daily; Duration: 90 Active Spironolactone 25 MG 1 tab(s) orally onc e daily; Duration: 90 days Active Atorvastatin Calcium 40 MG 1 tab(s) oral ly once a day Active Montelukast Sodium 10 MG 1 tab(s) orally once a day 05/27/2017 Active Primidone 50 MG 1 tab(s) orally twic e a day; Duration: 90 days Active Triamterene-HCTZ 37.5-25 MG 1 tab(s) ora lly once a day; Duration: 90 days Active Allopurinol 100 MG 1 tab(s) orally once a day; Duration: 90 days Active Vital Signs Weight 255.6 lbs 05/20/2024 Blood pressure systolic 122 mm Hg 05/20/20 24 Blood pressure diastolic 70 mm Hg 024 Heart Rate 62 /min 05/20/2024 Height 65.25 in 05/20/2024 BMI 42.20 kg/m2 05/20/2024 Encounters Encounter Location Date Provider Diagnosis [facility] [address] [facility] [address] [place] [phone] 05/20/2024 Yannick Jain Essential hypertensi on I10 ; Onychomycosis B35.1 ; Heart palpitations R00.2 and Lumbago with sciatica, left side M54.42 Assessments Encounter Date Diagnosis (ICD Code) Assessment Notes Treatment Notes Treatment Clinical Notes Section Notes 05/20/2024 Essential hypertension (ICD-10 - I10) 05/20/2024 Onychomycosis (ICD-10 - B35.1) 05/20/2024 Heart palpitations (ICD-10 - R00.2) 05/20/2024 Lumbago with sciatica, left side (ICD-10 - M54.42) Plan Of Treatment Next Appt Details Follow Up: 3 Months, Reason: Progress Notes * MICHELLE TJOB:[birth year] (70 yo F)Acc No.[id number]:05/20/2024 Progress Notes Patient: RADHA CAM Provider: Yannick Jain M.D. :1955 A ge:69 Y S ex:Female Date:05/20/2024 Address:[address] [facility] [address] [id number] Subjective: * Chief Complaints: * 1 . 6 week f/u. * HPI: D ermatology: The patient is here today for a follow up on toenail fungus. Pt states she finished the Terbinafine last week and thinks there is improvement. * ROS: D ERMATOLOGY: no R margareth. n o H meng. G ASTROENTEROLOGY: no N ausea. n o V omiting. n o D iarrhea.? U ROLOGY: no D ifficulty urinating. n o B lood in urine. * Medical History: E sophageal reflux, Diverticulosis, Hypertension, Right hip dysplasia or avascular necrosis, Shingrix #1 10/17/2018, Mammoram 12/2018, Echocardiogram 05/26/2020 EF=55%, Positive [place] 2008, 01/08/24 Normal bone density. * Surgical History: k idney stone removal , cholecystectomy , tubal ligation , Total R hip replacement 06-09-09, Echo and stress test 01/07/15, Angiogram 01/12/15, COVID screening: negative 01/15/2020, Colonoscopy at [facility] Dr. Gallegos, tubular adenoma 01/16/2020, [...] affeine: yes, frequency:occasional. Marital Status: Single. Occupation: [employer]. Past smoking status: no. Alcohol: No. * [...] tab(s) orally once a day , Taking Primidone 50 MG Tablet 1 [...] times a day as needed , Taking Potassium Chloride ER 10 MEQ Tablet Extended Release Take 1 tablet by mouth once daily , Discontinued Terbinafine HCl 250 MG Tablet 1 tablet Orally Once a day , Medication List reviewed and reconciled with the patient * Allergies: A leve, Percocet, Codeine: sick to stomach. Objective: * Vitals: W t:255.6, Temp:97.9, BP:122/70, HR:62, Nurse:DAKOTAH, Ht: 65.25, BMI:42.20. * Examination: [...] the knees. Left great toenail with fungal changes, improvement is not yet evident . Assessment: * Assessment: 1. O nychomycosis - B35.1 (Primary) 2 . E ssential hypertension - I10 ? 3 . H eart palpitations - R00.2 4 . L umbago with sciatica, left side - M54.42 Plan: * Treatment: * Follow Up: 3 Months * Images: Billing Information: * Visit Code: 70093 Office Visit, Est Pt., Level 3. * Procedure Codes: * Electronic signature of Yannick Jain MD on 07/03/2025 at 01:12 PM EST Sign off status: Pending * Provider: Yannick Jain M.D. Date: 0 05/20/2024 Generated for Nile lipscomb/Adithya/[place] on: 09/02/2024 01:12 PM EST History and Physical Notes * Examination Category Sub-Category Detail Notes Category Not es General Examination HEENT: unremarkable Heart: RSR Lungs: clear to auscultatio n Abdomen: obese, soft and nont ella Extremities: no leg edema, some o steoarthritic changes of the knees. Left great toenail with fungal changes, improvement is not yet evident General Appearance: NAD, note weight gai n Skin: normal, no rash Neurologic Exam: Intact, gait normal Neck: supple, no lymphaden opathy Oral cavity: no lesions, mucosa m oist and WNL, no erythema Peripheral pulses: normal Chest: normal shape and exp ansion
--- OUTSIDE RECORDS SUMMARY | 2024-07-29 10:15 | XMS_ITS ---
Author Organization [facility] Address [address] [place], [place] [address] Care Team Providers Care Research Technologist Name Role Phone Yannick Jain Primary Care Provider [phone] Lydia Moseley Unavailable [phone] Allergies Allergen (clinical drug ingredient) Drug/Non Drug Allergy documented on EMR Reaction Allergy Type Onset Date Status Aleve Unknown Drug Allergy Active acetaminophen / oxycodone Percocet Unknown Drug Allergy Active codeine Codeine sick to stomach Drug Allergy A ctive Results Component Value Reference Range Notes Influenza Screen (in house) Reviewed date:07/29/2024 07:44:10 PM Interpretation:neg Performing Lab: Notes/Report: neg results neg Rapid Strep- Inhouse Reviewed date:07/29/2024 07:44:38 PM Interpretation:neg Performing Lab: Notes/Report: neg strep test neg Covid test (in house) Reviewed date:07/29/2024 07:43:56 PM Interpretation:neg Performing Lab: Notes/Report: neg Result: neg venous doppler ultrasound le g, lower right Reviewed date:08/05/2024 01:17:08 PM Interpretation: Performing Lab: Notes/Report: REASON FOR VISIT head cold Medications Medication SIG (Take, Route, Frequency, Duration) Notes Start Date End Date Status Spironolactone 25 MG 1 tab(s) orally bid Active Triamterene-HCTZ 37.5-25 MG 1 tab(s) ora lly once a day Active Potassium Chloride ER 10 MEQ Take 1 tabl et by mouth once daily; Duration: 90 days Active Gabapentin 300 MG 1 cap(s) orally 2 times a day 07/12/2024 Active Allopurinol 100 MG 1 tab(s) orally once a day; Duration: 90 days Active Atorvastatin Calcium 40 MG 1 tab(s) oral ly once a day Active Albuterol Sulfate HFA 108 (9 0 Base) MCG/ACT 1 puff as needed Inhalation every 4 hrs prn 07/29/2024 Active Primidone 50 MG 1 tab(s) orally twic e a day; Duration: 90 days Active traMADol HCl 50 MG 1 tablet as needed Orally three times a day as needed 07/10/2023 Active Montelukast Sodium 10 MG 1 tab(s) orally once a day 05/27/2017 Active NexIUM 24HR 20 MG 1 cap(s) orally once a day (in the morning) Active Aspirin Adult Low Dose 81 MG 1 tab(s) or ally once a day Active Zithromax Z-Igor 250 MG 2 pills first day then one daily for 4 days orally as directed; Duration: 5 days 07/29/2024 Active Metoprolol Succinate ER 50 MG 1 tab(s) o rally once a day; Duration: 30 day(s) Active Losartan Potassium 50 MG 1 tablet Orally Once a day; Duration: 30 day(s) Active Hydroxychloroquine Sulfate 2 00 MG 1 tab twice daily Active Vital Signs Weight 265.8 lbs 07/29/2024 Blood pressure systolic 110 mm Hg 07/29/20 24 Blood pressure diastolic 68 mm Hg 024 Heart Rate 71 /min 07/29/2024 Height 65.25 in 07/29/2024 BMI 43.89 kg/m2 07/29/2024 Encounters Encounter Location Date Provider Diagnosis [facility] [address] [place] [id number] 07/29/2024 Lydia Moseley URI (upper respirato ry infection) J06.9 and Leg edema R60.0 Assessments Encounter Date Diagnosis (ICD Code) Assessment Notes Treatment Notes Treatment Clinical Notes Section Notes 07/29/2024 URI (upper respiratory infection) (ICD-10 - J06.9) fluids, rest, supportive measures for fever/symptom relief 07/29/2024 Leg edema (ICD-10 - R60.0) needs US of right leg; low salt diet Plan Of Treatment Medication Medication Name Sig Start Date Stop Date Notes Spironolactone 25 MG 1 tab(s) orally bid Triamterene-HCTZ 37.5-25 MG 1 tab(s) orally once a day Albuterol Sulfate HFA 108 (9 0 Base) MCG/ACT 1 puff as needed Inhalation every 4 hrs prn 07/29/2024 Zithromax Z-Igor 250 MG 2 pills first day then one daily for 4 days orally as directed; Duration: 5 days 07/29/2024 Treatment Notes Assessment Notes URI (upper respiratory infection) fluids , rest, supportive measures for fever/symptom relief Leg edema needs US of right le g; low salt diet Next Appt Details Follow Up: 1 Week with labs, Reason: Progress Notes * JAREK MARTINEZKEVONOB:[birth year] (70 yo F)Acc No.[id number]:07/29/2024 Progress Notes Patient: RADHA CAM Provider: ADELA Damon :1955 A ge:69 Y S ex:Female Date:07/29/2024 [address], [place], [id number] Pcp:Yannick Jain Subjective: * Chief Complaints: * 1 . Head cold. * HPI: E NT/respiratory: 69 year old female presents with c/o cough d ue to drainage. c/o Short of Breath. c/o headache P t sts she has a headache now, but sts she has not really eaten much today. c/o chest congestion w heezing . Denies : sore throat. D enies : Fever. D enies : ear pain. D enies : smoking. D enies : dizziness. D enies : body aches. Pt sts she started out with a head cold for about 1 week. * ROS: C ARDIOLOGY: no C hest pain. n o L eg edema, t his has increased in the past 1-2 weeks > right leg. n o S hortness of breath. G ASTROENTEROLOGY: no V omiting. n o D iarrhea. M USCULOSKELETAL: Joint pain y es, r ight hip and left knee pain. ? * Medical History: E sophageal reflux, Diverticulosis, Hypertension, Right hip dysplasia or avascular necrosis, Shingrix #1 10/17/2018, Mammoram 12/2018, Echocardiogram 05/26/2020 EF=55%, Positive VALENT[place] 2008, 01/08/24 Normal bone density. * Surgical History: k idney stone removal , cholecystectomy , tubal ligation , Total R hip replacement 06-09-09, Echo and stress test 01/07/15, Angiogram 01/12/15, COVID screening: negative 01/15/2020, Colonoscopy at [facility] Dr. 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 [...] affeine: yes, frequency:occasional. Marital Status: Single. Occupation: [employer]. Past smoking status: no. Alcohol: No. * [...] tab(s) orally once a day , Taking traMADol HCl 50 MG Tablet 1 tablet as needed Orally three times a day as needed , Taking Primidone 50 MG Tablet 1 tab(s) orally twice a day , Taking Triamterene-HCTZ 37.5-25 MG Tablet 1 tab(s) orally once a day , Taking Allopurinol 100 MG Tablet 1 tab(s) orally once a day , Taking Gabapentin 300 MG Capsule 1 cap(s) orally 2 times a day , Taking Potassium Chloride ER 10 MEQ Tablet Extended Release Take 1 tablet by mouth once daily , Taking Spironolactone 25 MG Tablet 1 tab(s) orally once daily , Medication List reviewed and reconciled with the patient * Allergies: A leve, Percocet, Codeine: sick to stomach. Objective: * Vitals: W t:265.8, Temp:98.5, BP:110/68, HR:71, Nurse:CHAZ, Ht: 65.25, BMI:43.89. * Examination: E NT/Respiratory: General Appearance: well nourished and hydrated, NAD, alert. E yes: sclera and conjunctiva clear. E ars: auditory canals normal bilaterally, tympanic membranes normal bilaterally. N ose : nares patent. O ral cavity : no erythema or exudate seen on pharynx. N marisol : supple, no cervical lymphadenopathy. H eart : RRR. L ungs: few crackles right anterior chest; no wheezing. E xtremities : bilateral leg edema ..> on the right. Assessment: * Assessment: 1. U RI (upper respiratory infection) - J06.9 (Primary) 2 . L eg edema - R60.0 Plan: * Treatment: 2. L eg edema Continue Triamterene-HCTZ Tablet, 37.5-25 MG, 1 tab(s), orally, once a day; I ncrease Spironolactone Tablet, 25 MG, 1 tab(s), orally, bid. I maging: venous doppler ultrasound leg, lower right (Performed Date - 08/01/2024) Notes: needs US of right leg; low salt diet?? * Labs: * L ab: Covid test (in house) (Collection Date & Time - 07/29/2024) n eg Value Reference Range R esult: neg * Esther Arias 07/29/2024 4:20: 07 PM > Provider reviewed results while patient in office.Lydia Moseley 07/29/2024 7:43:54 PM > ?Lab: Influenza Screen (in house) (Collection Date & Time - 07/29/2024)?neg * Value Reference Range r esults neg * Esther Arias 07/29/2024 4:19: 32 PM > Provider reviewed results while patient in office.Dominga Moseleyharine 07/29/2024 7:44:09 PM > ?Lab: Rapid Strep- Inhouse (Collection Date & Time - 07/29/2024)?neg* Value Reference Range s trep test neg * Esther Arias 07/29/2024 4:19: 50 PM > Provider reviewed results while patient in office.Dominga Moseleyharine 07/29/2024 7:44:22 PM > * Procedure Codes: 8 7804 Flu Test- Nasal Swab, Modifiers: QW , 41874 STREP A ASSAY W/OPTIC, Modifiers: QW , 81196 COVID TEST IN HOUSE, Modifiers: QW * Follow Up: 1 Week with labs * Images: Billing Information: * Visit Code: 48500 Office Visit, Est Pt., Level 3. * Procedure Codes: 88964 Flu Test- Nasal Swab. Modifiers: QW 14213 STREP A ASSAY W/OPTIC. Modifiers: QW 44694 COVID TEST IN HOUSE. Modifiers: QW * Electronic signature of Aydee garcia Lorelei , ADAMARIS on 07/03/2025 at 01:14 PM EST Sign off status: Pending * Provider: ADELA Damon Date: 09/29/2023 Generated for Nile Villarreal/[place] on: 09/02/2024 01:14 PM EST History and Physical Notes * HPI (History of Present Illness) Category Sub-Category Detail Notes Category Not es ENT/respiratory sore throat Pt sts she s tarted out with a head cold for about 1 week ear pain Short of Breath cough due to drainage Fever headache Pt sts she has a hea dache now, but sts she has not really eaten much today chest congestion wheezing smoking dizziness body aches Examination Category Sub-Category Detail Notes Category Not es ENT/Respiratory Oral cavity : no erythema or exudate s een on pharynx Ears: auditory canals norm al bilaterally, tympanic membranes normal bilaterally Neck : supple, no cervical lymphadenopathy Heart : RRR Lungs: few crackles right a nterior chest; no wheezing Extremities : bilateral leg edema ..> on the right General Appearance: well nourished and h ydrated, NAD, alert Nose : nares patent Eyes: sclera and conjuncti va clear
--- OUTSIDE RECORDS SUMMARY | 2024-08-05 08:30 | XMS_ITS ---
Author Organization [facility] Address [address] [facility] [address] [place] [id number] Care Team Providers Care Supervisor Beam Department Name Role Phone Yannick Jain Primary Care Provider [phone] Lydia Moseley Unavailable [phone] Allergies Allergen (clinical drug ingredient) Drug/Non Drug Allergy documented on EMR Reaction Allergy Type Onset Date Status Aleve Unknown Drug Allergy Active acetaminophen / oxycodone Percocet Unknown Drug Allergy Active codeine Codeine sick to stomach Drug Allergy A ctive Results Component Value Reference Range Notes P-Basic Metabolic Panel (BMP ) Reviewed date:08/08/2024 01:31:20 PM Interpretation: Performing Lab: Notes/Report: Test performed by [facility], [facility] [address] [place] [address] , [address], [place] [address] Jung Jc MD, Grinding Wheel Dresser CLIA: [id number] Sodium 137 135-145 mmol/L Potassium 4.2 3.5-5.3 mmol/L Chloride 101 97-108 mmol/L CO2 25 22-32 mmol/L Glucose 100 65-99 mg/dL BUN 18 8-23 mg/dL Creatinine 0.84 0.50-1.00 mg/dL Calcium 9.6 8.6-10.4 mg/dL eGFR by Creatinine 74 >59 mL/min/1.73m2 REASON FOR VISIT 1 week f/u Medications Medication SIG (Take, Route, Frequency, Duration) Notes Start Date End Date Status Hydroxychloroquine Sulfate 2 00 MG 1 tab twice daily Active NexIUM 24HR 20 MG 1 cap(s) orally once a day (in the morning) Active Spironolactone 25 MG 1 tab(s) orally bid Active Aspirin Adult Low Dose 81 MG 1 tab(s) or ally once a day Active Losartan Potassium 50 MG 1 tablet Orally Once a day; Duration: 30 day(s) Active Metoprolol Succinate ER 50 MG 1 tab(s) o rally once a day Active Potassium Chloride ER 10 MEQ Take 1 tabl et by mouth once daily; Duration: 90 days Active Gabapentin 300 MG 1 cap(s) orally 2 times a day 07/12/2024 Active Triamterene-HCTZ 37.5-25 MG 1 tab(s) ora lly once a day Active Albuterol Sulfate HFA [...] tab(s) oral ly once a day Active Allopurinol 100 MG 1 tab(s) orally once a day; Duration: 90 days Active Problems Problem Type SNOMED Code ICD Code Onset Dates Problem Status W/U Status Risk Notes Problem Osteoarthritis (555403620) Unspecified osteoarthritis, unspecified site (M19.90) Active confirmed Vital Signs Weight 258.8 lbs 08/05/2024 Blood pressure systolic 120 mm Hg 08/05/20 24 Blood pressure diastolic 70 mm Hg 024 Heart Rate 73 /min 08/05/2024 Height 65.25 in 08/05/2024 BMI 42.73 kg/m2 08/05/2024 Encounters Encounter Location Date Provider Diagnosis [facility] [address] [place] [phone] 08/05/2024 Lydia Moseley Essential hypertensi on I10 and Leg edema R60.0 Assessments Encounter Date Diagnosis (ICD Code) Assessment Notes Treatment Notes Treatment Clinical Notes Section Notes 08/05/2024 Essential hypertension (ICD-10 - I10) 08/05/2024 Leg edema (ICD-10 - R60.0) will check BMP today; reviewed [place] records with her Plan Of Treatment Medication Medication Name Sig Start Date Stop Date Notes Spironolactone 25 MG 1 tab(s) orally bid Metoprolol Succinate ER 50 MG 1 tab(s) orally once a day Triamterene-HCTZ 37.5-25 MG 1 tab(s) orally once a day Treatment Notes Assessment Notes Leg edema will check BMP today ; reviewed [place] records with her Next Appt Details Follow Up: keep 08/09/[address] Jain, Reason: Progress Notes * JAREK MARTINEZKEVONOB:[birth year] (70 yo F)Acc No.[id number]:08/05/2024 Patient: RADHA CAM Provider: ADELA Damon :1955 A ge:69 Y S ex:Female Date:08/05/2024 Address:[address] [place], [place] [address] , [place], [id number] Pcp:Yannick Jain Subjective: * Chief Complaints: * 1 . 1 week f/u. * HPI: H PI: 69 year old female presents with c/o Patient is here today for?Pt is here today for a 1 week f/u. Pt sts she is better. Pt sts she still has a bit of her symptoms but is unsure if it is just allergies or normal stuff . cough is better; swelling is better. * ROS: C ARDIOLOGY: no C hest [...] Normal bone density. * Surgical History: k seney stone removal , cholecystectomy , tubal ligation , Total R hip replacement 06-09-09, Echo and stress test 01/07/15, Angiogram 01/12/15, COVID screening: negative 01/15/2020, Colonoscopy at [facility] Dr. Gallegos, tubular adenoma 01/16/2020, Epidural [...] affeine: yes, frequency:occasional. Marital Status: Single. Occupation: [employer]. Past smoking status: no. Alcohol: No. * [...] tablet by mouth once daily , Taking Albuterol Sulfate HFA 108 (90 Base) MCG/ACT Aerosol Solution 1 puff as needed Inhalation every 4 hrs prn , Taking Triamterene-HCTZ 37.5-25 MG Tablet 1 tab(s) orally once a day , Taking Spironolactone 25 MG Tablet 1 tab(s) orally bid , Medication List reviewed and reconciled with the patient * Allergies: A leve, Percocet, Codeine: sick to stomach. Objective: * Vitals: W t:258.8, Temp:97.7, BP:120/70, HR:73, Nurse:CHAZ, Ht: 65.25, BMI:42.73. * Examination: G eneral Examination: General Appearance: NAD, alert, pleasant, Color good.?Heart: RRR. L ungs: CTAB A&P with good bilateral BS. N eurologic Exam:? alert and oriented. E xtremities: no ankle edema. Assessment: * Assessment: 1. E ssential hypertension - I10 (Primary) 2 . L eg edema - R60.0 ? Plan: * Treatment: Value Reference Range B UN 18 8-23 - mg/dL * C alcium 9.6 8.6-10.4 - mg/dL * C hloride 101 97-108 - mmol/L * C O2 25 22-32 - mmol/L * C reatinine 0.84 0.50-1.00 - mg/dL * G lucose 100 H 65-99 - mg/dL * P otassium 4.2 3.5-5.3 - mmol/L * S odium 137 135-145 - mmol/L * e GFR by Creatinine 74 >59 - mL/min/1.73m2 * Lydia Moseley 08/06/2024 4:31:27 PM > please notify pt of normal lab Sarah Mccabe 08/08/2024 1:31:08 PM > Left message informing 2.?Leg edema? Continue Triamterene-HCTZ Tablet, 37.5-25 MG, 1 tab(s), orally, once a day;?Continue Spironolactone Tablet, 25 MG, 1 tab(s), orally, bid.?? Notes: will check BMP today; reviewed [place] records with her?? * Procedure Codes: G 2211 Complex e/m visit add on * Follow Up: charla peña 08/09/[address] Jain * Images: Billing Information: * Visit Code: 84654 Office Visit, Est Pt., Level 3. * Procedure Codes: G2211 Complex e/m visit add on. * Electronic signature of Aydee bermeojessica Moseley APRN on 07/03/2025 at 01:14 PM EST Sign off status: Pending * Provider: ADELA Damon Date: 10/06/2023 Generated for Nile lipscomb/Adithya/[place] on: 09/02/2024 01:14 PM EST History and Physical Notes * HPI (History of Present Illness) Category Sub-Category Detail Notes Category Not es HPI Patient is here toda y for Pt is here today for a 1 week f/u. Pt sts she is better. Pt sts she still has a bit of her symptoms but is unsure if it is just allergies or normal stuff cough is better; swelling is better Examination Category Sub-Category Detail Notes Category Not es General Examination Heart: RRR Lungs: CTAB A&P with good b ilateral BS Extremities: no ankle edema General Appearance: NAD, alert, pleasant , Color good Neurologic Exam: alert and oriented
--- OUTSIDE RECORDS SUMMARY | 2024-08-19 08:15 | XMS_ITS ---
[facility] [address] [place] [phone] Care Team Providers Care Sharepoint Engineer Name Role Phone Yannick Jain Primary Care Provider Allergies Allergen (clinical drug ingredient) Drug/Non Drug Allergy documented on EMR Reaction Allergy Type Onset Date Status Aleve Unknown Drug Allergy Active acetaminophen / oxycodone Percocet Unknown Drug Allergy Active codeine Codeine sick to stomach Drug Allergy A ctive Reason For Referral Reason onychogryposis Diagnosis 1 Onychogryposis of to enail (L60.2) Referral Organization [facility] Referring Provider First Name Yannick Mota Referring Provider Last Name Cristobal Referring Provider Speciality Family Pra ctice Referred Provider Specialty Podiatry General Notes Delaney Castro 024 8:41:48 AM > faxed referral to Dr. Melo's office, Delaney Castro 08/27/2024 11:14:51 AM > 09/30/2024 at 01:00pm Referral Priority Routine REASON FOR VISIT 3 Month Check Up, Needs mammogram & flu vaccine Medications Medication SIG (Take, Route, Frequency, Duration) Notes Start Date End Date Status Spironolactone 25 MG 1 tab(s) orally bid Active Baclofen 5 MG 1 tablet as needed Orally Once a day; Duration: 30 day(s) Active Hydroxychloroquine Sulfate 2 00 MG 1 tab twice daily Active Metoprolol Succinate ER 50 MG 1 tab(s) o rally once a day Active Triamterene-HCTZ 37.5-25 MG 1 tab(s) ora lly once a day Active Primidone 50 MG 1 tab(s) orally twic e a day; Duration: 90 days Active Allopurinol 100 MG 1 tab(s) orally once a day; Duration: 90 days Active Gabapentin 300 MG 1 cap(s) orally 2 times a day 07/12/2024 Active Potassium Chloride ER 10 MEQ Take 1 tabl et by mouth once daily; Duration: 90 days Active Albuterol Sulfate HFA 108 (9 0 Base) MCG/ACT 1 puff as needed Inhalation every 4 hrs prn 07/29/2024 Active NexIUM 24HR 20 MG 1 cap(s) orally once a day (in the morning) Active Atorvastatin Calcium 40 MG 1 tab(s) oral ly once a day Active Montelukast Sodium 10 MG 1 tab(s) orally once a day 05/27/2017 Active traMADol HCl 50 MG 1 tablet as needed Orally three times a day as needed 07/10/2023 Active Aspirin Adult Low Dose 81 MG 1 tab(s) or ally once a day Active Losartan Potassium 50 MG 1 tablet Orally Once a day; Duration: 30 day(s) Active Problems Problem Type SNOMED Code ICD Code Onset Dates Problem Status W/U Status Risk Notes Problem Lumbar facet joint pain (986413180) Lumbar facet joint pain (M54.59) Active confirmed Vital Signs Weight 262.4 lbs 08/19/2024 Blood pressure systolic 120 mm Hg 08/19/20 24 Blood pressure diastolic 72 mm Hg 024 Heart Rate 62 /min 08/19/2024 Height 65.25 in 08/19/2024 BMI 43.33 kg/m2 08/19/2024 Encounters Encounter Location Date Provider Diagnosis [facility] [address] [facility] [address] [place], [place] [phone] 08/19/2024 Yannick Jain Onychogryposis of toenail L60.2 ; Essential hypertension I10 ; Lumbar facet joint pain M54.59 and Degeneration of intervertebral disc of lumbar region, unspecified whether pain present M51.369 Assessments Encounter Date Diagnosis (ICD Code) Assessment Notes Treatment Notes Treatment Clinical Notes Section Notes 08/19/2024 Onychogryposis of toenail (ICD-10 - L60.2) 08/19/2024 Essential hypertension (ICD-10 - I10) 08/19/2024 Lumbar facet joint pain (ICD-10 - M54.59) 08/19/2024 Degeneration of intervertebral disc of lumbar region, unspecified whether pain present (ICD-10 - M51.369) Plan Of Treatment Referrals Referral Date Details 08/19/2024 08/19/2024, onychogr yposis Next Appt Details Follow Up: 3 Months, Reason: Progress Notes * JAREK MARTINEZINEDOB:[birth year] (70 yo F)Acc No.[id number]:08/19/2024 Progress Notes Patient: RADHA CAM Provider: Yannick Jain M.D. :1955 A ge:69 Y S ex:Female Date:08/19/2024 Address:[address] [place], [place] [address] [address] [id number] Subjective: * Chief Complaints: * 1 . 3 Month Check Up. 2. Needs mammogram & flu vaccine. * HPI: A nkle/Foot: The patient is here for a follow up on left great toenail fungus. Pt states she has finished the Terbinafine and states she can't see much improvement in the nail. E NT/respiratory: The pt states she saw Elizabeth a couple weeks ago and had a URI. Pt states she was doing better but has started with a dry cough and some wheezing over the past couple days. c/o cough. c/o post nasal drainage. Denies : sore throat. D enies : Fever. D enies : Chest Pain. D enies : Short of Breath. N eurology: Is being seen at [facility] since May. Using a Gabapentin topical preparation. Dr. Reddy has suggested MILD procedure. Had epidural injection in July 05. * ROS: D ERMATOLOGY: no R margareth. [...] 01/12/15, COVID screening: negative 01/15/2020, Colonoscopy at [facility] Dr. Gallegos, tubular adenoma 01/16/2020, Epidural [...] affeine: yes, frequency:occasional. Marital Status: Single. Occupation: [employer]. Past smoking status: no. Alcohol: No. * Medications: T aking Baclofen 5 MG Tablet 1 tablet as needed Orally Once a day , Taking Hydroxychloroquine Sulfate 200 MG Tablet 1 tab twice daily , Taking Losartan Potassium 50 MG Tablet 1 tablet Orally Once a day , Taking Aspirin Adult Low [...] Inhalation every 4 hrs prn , Taking Metoprolol Succinate ER 50 MG Tablet Extended Release 24 Hour 1 tab(s) orally once a day , Taking Triamterene-HCTZ 37.5-25 MG Tablet 1 tab(s) orally once a day , Taking Spironolactone 25 MG Tablet 1 tab(s) orally bid , Medication List reviewed and reconciled with the patient * Allergies: A leve, Percocet, Codeine: sick to stomach. Objective: * Vitals: W t:262.4, Temp:98.0, BP:120/72, HR:62, Nurse:DAKOTAH, Ht: 65.25, BMI:43.33. * Examination: G eneral Examination: General Appearance: [...] evident . Assessment: * Assessment: 1. O nychogryposis of toenail - L60.2 (Primary) 2 . E ssential hypertension - I10 3 . L umbar facet joint pain - M54.59 4 . D egeneration of intervertebral disc of lumbar region, unspecified whether pain present - M51.369 ? Plan: * Treatment: * Procedure Codes: G 2211 Complex e/m visit add on, 3074F SYST BP LT 130 MM HG, 3078F DIAST BP < 80 MM HG * Follow Up: 3 Months * Images: Billing Information: * Visit Code: 04982 Office Visit, Est Pt., Level 3. * Procedure Codes: G2211 Complex e/m visit add on. 3074F SYST BP LT 130 MM HG. 3078F DIAST BP < 80 MM HG. * Electronic signature of Yannick Jain MD on 07/03/2025 at 01:12 PM EST Sign off status: Pending * Provider: Yannick Jain M.D. Date: Generated for Nile lipscomb/Adithya/eTransmitting on: 09/02/2024 01:12 PM EST History and Physical Notes * HPI (History of Present Illness) Category Sub-Category Detail Notes Category Not es ENT/respiratory sore throat Short of Breath Chest Pain cough Fever post nasal drainage Examination Category Sub-Category Detail Notes Category Not [...] normal Chest: normal shape and exp ansion Consultation Request Notes Referral Date Referring Provider Referred Provider Not es 08/19/2024 Yannick Jain , onychogryp osdevyn
--- OUTSIDE RECORDS SUMMARY | 2024-12-02 09:15 | XMS_ITS ---
Author Organization [facility] Address [address] [facility] [address] [place] [id number] Care Team Providers Care Home Care Administrator Name Role Phone Yannick Jain Primary Care Provider Allergies Allergen (clinical drug ingredient) Drug/Non Drug Allergy documented on EMR Reaction Allergy Type Onset Date Status Aleve Unknown Drug Allergy Active acetaminophen / oxycodone Percocet Unknown Drug Allergy Active codeine Codeine sick to stomach Drug Allergy A ctive Results Component Value Reference Range Notes P-Comprehensive Metabolic Pa alysha (CMP) Reviewed date:12/06/2024 10:50:40 AM Interpretation:alk phos 142 Performing Lab: Notes/Report: CLIA: [id number] Jung Jc MD, Breast Buffer [facility] , [address], [place] [address] Test performed by [employer], [facility] Sodium 138 135-145 mmol/L Potassium 4.4 3.5-5.3 mmol/L Chloride 100 97-108 mmol/L CO2 27 22-32 mmol/L Glucose 88 65-99 mg/dL BUN 18 8-23 mg/dL Creatinine 0.92 0.50-1.00 mg/dL Calcium 9.9 8.6-10.4 mg/dL eGFR by Creatinine 66 >59 mL/min/1.73m2 Protein 7.8 6.0-8.3 g/dL Albumin 4.1 3.5-5.3 g/dL Alkaline Phosphatase 142 35-121 IU/L ALT (SGPT) 18 <5-47 IU/L AST (SGOT) 21 <5-40 IU/L Bilirubin, Total 0.5 <0.2-1.2 mg/dL A/G Ratio 1.1 1.1-2.5 REASON FOR VISIT 3 month ckup, Needs mammogram Medications Medication SIG (Take, Route, Frequency, Duration) Notes Start Date End Date Status Spironolactone 25 MG 1 tab(s) orally bid Active Triamterene-HCTZ 37.5-25 MG 1 tab(s) ora lly once a day Active Metoprolol Succinate ER 50 MG 1 tab(s) orally once a day Active Albuterol Sulfate HFA 108 (90 Base) MCG/ACT 1 puff as needed Inhalation every 4 hrs prn 07/29/2024 Active Potassium Chloride ER 10 MEQ Take 1 tabl et by mouth once daily; Duration: 90 days Active Atorvastatin Calcium 40 MG 1 tab(s) oral ly once a day Active NexIUM 24HR 20 MG 1 cap(s) orally once a day (in the morning) Active Allopurinol 100 MG 1 tab(s) orally once a day; Duration: 90 days Active Primidone 50 MG 1 tab(s) orally twice a day; Duration: 90 days Active traMADol HCl 50 MG 1 tablet as needed Orally three times a day as needed 07/10/2023 Active Aspirin Adult Low Dose 81 MG 1 tab(s) or ally once a day Active Gabapentin 600 MG 1 tablet Orally Three times a day; Duration: 30 day(s) 12/02/2024 Active Losartan Potassium 50 MG 1 tablet Orally Once a day; Duration: 30 day(s) Active Hydroxychloroquine Sulfate 200 MG 1 tab twice daily Active Baclofen 5 MG 1 tablet as needed Orally Once a day; Duration: 30 day(s) Not-Taking Montelukast Sodium 10 MG 1 tab(s) orally once a day; Duration: 90 days 05/27/2017 Active Problems Problem Type SNOMED Code ICD Code Onset Dates Problem Status W/U Status Risk Notes Problem Morbid obesity (102331842) Morbid obesity (E66.01) Active confirmed Problem Body mass index 40+ - morbidly obese (390656648) BMI 40.0-44.9, adult (Z68.41) Active confirmed Vital Signs Weight 259.4 lbs 12/02/2024 Blood pressure systolic 124 mm Hg 12/03/19 25 Blood pressure diastolic 80 mm Hg 025 Heart Rate 70 /min 12/02/2024 Height 65.25 in 12/02/2024 BMI 42.83 kg/m2 12/02/2024 Encounters Encounter Location Date Provider Diagnosis [facility] [address] [facility] [address] [facility] [address] [place] [phone] 12/02/2024 Yannick Jain Lumbar facet joint p ain M54.59 ; Unspecified osteoarthritis, unspecified site M19.90 ; VALENTINA positive R76.8 ; Pain in left shoulder M25.512 ; Other chronic pain G89.29 ; Essential hypertension I10 ; Morbid obesity E66.01 and BMI 40.0-44.9, adult Z68.41 Assessments Encounter Date Diagnosis (ICD Code) Assessment Notes Treatment Notes Treatment Clinical Notes Section Notes 12/02/2024 Lumbar facet joint pain (ICD-10 - M54.59) 12/02/2024 Unspecified osteoarthritis, unspecified site (ICD-10 - M19.90) 12/02/2024 VALENTINA positive (ICD-10 - R76.8) 12/02/2024 Pain in left shoulder (ICD-10 - M25.512) 12/02/2024 Other chronic pain (ICD-10 - G89.29) 12/02/2024 Essential hypertension (ICD-10 - I10) 12/02/2024 Morbid obesity (ICD-10 - E66.01) 12/02/2024 BMI 40.0-44.9, adult (ICD-10 - Z68.41) Plan Of Treatment Medication Medication Name Sig Start Date Stop Date Notes Gabapentin 600 MG 1 tablet Orally Thre e times a day; Duration: 30 day(s) 12/02/2024 Gabapentin 300 MG 1 cap(s) orally 2 times a day 07/12/2024 Next Appt Details Follow Up: 3 Months, Reason: Progress Notes * TJ MARTINEZOB:[birth year] (70 yo F)Acc No.[id number]:12/02/2024 Progress Notes Patient: RADHA CAM Provider: Yannick Jain M.D. :1955 A ge:69 Y S ex:Female Date:12/02/2024 Address:[address] [place], [place] [address] [address] [id number] Subjective: * Chief Complaints: * 1 . 3 month ckup. 2. Needs mammogram. * HPI: H ip/Thigh: The patient is here for a check up on Right hip pain. Pt states the pain is worse at night. Pt states it wakes her up at night and radiates into her back and down the right leg. Pt states the left knee pain is worse with walking. 69 year old female presents with c/o hip pain w orse at night. * ROS: D ERMATOLOGY: no R margareth. [...] 01/12/15, COVID screening: negative 01/15/2020, Colonoscopy at [facility] Dr. Gallegos, tubular adenoma 01/16/2020, Epidural [...] affeine: yes, frequency:occasional. Marital Status: Single. Occupation: [employer]. Past smoking status: no. Alcohol: No. * [...] tab(s) orally once a day , Taking Triamterene- HCTZ 37.5-25 MG Tablet 1 tab(s) orally once a day , Taking Spironolactone 25 MG Tablet 1 tab(s) orally bid , Taking Montelukast Sodium 10 MG Tablet 1 tab(s) orally once a day , Not-Taking Baclofen 5 MG Tablet 1 tablet as needed Orally Once a day , Medication List reviewed and reconciled with the patient * Allergies: A leve, Percocet, Codeine: sick to stomach. Objective: * Vitals: W t: 259.4, Temp: 98.6, BP: 124/80, HR: 70, Nurse: DAKOTAH, Ht: 65.25, BMI:42.83. * Examination: G eneral Examination: General Appearance: [...] yet evident . Assessment: * Assessment: 1. L umbar facet joint pain - M54.59 (Primary) 2 . U nspecified osteoarthritis, unspecified site - M19.90 3 . A NA positive - R76.8 4 .?Pain in left shoulder - M25.512 5 . O ther chronic pain - G89.29 6. E ssential hypertension - I10 7 . M orbid obesity - E66.01 8 . B TN 40.0-44.9, adult - Z68.41 Plan: * Treatment: 2. O ther chronic pain L AB: P-Comprehensive Metabolic Panel (CMP) (Collection Date & Time - 12/02/2024 02:54 PM) a lk phos 142 Value Reference Range A /G Ratio 1.1 1.1-2.5 - * A lbumin 4.1 3.5-5.3 - g/dL * A lkaline Phosphatase 142 H 35-121 - IU/L * A LT (SGPT) 18 <5-47 - IU/L * A ST (SGOT) 21 <5-40 - IU/L * B ilirubin, Total 0.5 <0.2-1.2 - mg/dL * B UN 18 8-23 - mg/dL * C alcium 9.9 8.6-10.4 - mg/dL * C hloride 100 97-108 - mmol/L * C O2 27 22-32 - mmol/L * C reatinine 0.92 0.50-1.00 - mg/dL * G lucose 88 65-99 - mg/dL * P otassium 4.4 3.5-5.3 - mmol/L * S odium 138 135-145 - mmol/L * P rotein 7.8 6.0-8.3 - g/dL * e GFR by Creatinine 66 >59 - mL/min/1.73m2 * Zhane Escalante 12/06/2024 10: 50:34 AM > See phone encounter * Procedure Codes: G 2211 Complex e/m visit add on, 3074F SYST BP LT 130 MM HG, 3079F DIAST BP 80-89 MM HG * Follow Up: 3 Months * Images: Billing Information: * Visit Code: 88969 Office Visit, Est Pt., Level 4. * Procedure Codes: G2211 Complex e/m visit add on. 3074F SYST BP LT 130 MM HG. 3079F DIAST BP 80-89 MM HG. * Electronic signature of Yannick Jain MD on 07/03/2025 at 01:12 PM EST Sign off status: Pending * Provider: Yannick Jain M.D. Date: 0 12/02/2024 Generated for Aldeni deisi/Alysong/eTransmitting on: 1 09/02/2024 01:12 PM EST History and Physical Notes * HPI (History of Present Illness) Category Sub-Category Detail Notes Category Not es Hip/Thigh hip pain worse at night Examination Category Sub-Category Detail Notes Category Not [...]
--- OUTSIDE RECORDS SUMMARY | 2025-01-03 09:15 | XMS_ITS ---
Author Organization [facility] Address [address] [facility] [address] [place] [id number] Care Team Providers Care Refrigeration Installer Name Role Phone Yannick Jain Primary Care Provider [phone] Boris Aguilar [phone] Allergies Allergen (clinical drug ingredient) Drug/Non Drug Allergy documented on EMR Reaction Allergy Type Onset Date Status Aleve Unknown Drug Allergy Active acetaminophen / oxycodone Percocet Unknown Drug Allergy Active codeine Codeine sick to stomach Drug Allergy A ctive REASON FOR VISIT F/U from [facility] ER Encounters Encounter Location Date Provider Diagnosis [place] [address] [facility] [address] [place] [id number] 01/03/2025 Boris Aguilar Plan Of Treatment No Information Progress Notes * JAREK MARTINEZKEVONOB:[birth year] (70 yo F)Acc No.[id number]:01/03/2025 Progress Notes Patient: RADHA CAM Provider: Aditi Aguilar M.D. :1955 A ge:69 Y S ex:Female Date:01/03/2025 Address:[address] [facility] [address] [id number] Pcp:Yannick Jain Subjective: * Chief Complaints: * 1 . F/U from [facility] ER. * ROS: D ERMATOLOGY: no R margareth. [...] screening: negative 01/15/2020, Colonoscopy at [facility] Dr. Gallegos, tubular adenoma 01/16/2020, [...] URRENT TOBACCO USE S moking Status: P atmckenzie does NOT smoke. C affeine: yes, frequency:occasional. Marital Status: Single. Occupation: [employer]. Past smoking status: no. Alcohol: No. * Allergies: A leve, Percocet, Codeine: sick to stomach. Objective: * Vitals: Assessment: Plan: * Treatment: * Images: Billing Information: * Visit Code: * Procedure Codes: * Electronic signature of Chayo Aguilar MD on 07/03/2025 at 01:12 PM EST Sign off status: Pending * Provider: Aditi Aguilar M.D. Date: 0 01/03/2025 Generated for Nile lipscomb/Adithya/[place] on: 09/02/2024 01:12 PM EST
--- OUTSIDE RECORDS SUMMARY | 2025-02-06 10:30 | XMS_ITS ---
Author Organization [facility] Address [address] [facility] [address] [place] [phone] Care Team Providers Care Adult Literacy Instructor Name Role Phone Yannick Jain Primary [...] date:02/18/2025 01:22:40 PM Interpretation:satisfactory Performing Lab: Notes/Report: CLIA: [id number] Jung Jc MD, Warehouse Director [facility] , [address], [place] [address] Test performed by [facility], [facility] Sodium 136 135-145 mmol/L Potassium 4.5 3.5-5.3 [...] Interpretation:Normal Performing Lab: Notes/Report: Test performed by [facility] [address] [place] [address] , [address], [place] [address] Jung Jc MD, Warehouse Director CLIA: [id number] Magnesium 1.7 1.6-2.4 mg/dL Reason For Referral Reason DJD knee, left. Dr. Flores Diagnosis 1 Arthropathy of left knee (M17.12) Referral Organization [facility] Referring Provider First Name Yannick Mota Referring Provider Last Name Cristobal Referring Provider Speciality Family Pra ctice General Notes Delaney Castro 2024 09:01:40 AM > faxed to [...] Status Risk Notes Problem Osteoarthritis of knee (766617009) Arthropathy of left knee (M17.12) Active confirmed Problem Hypomagnesemia (343818154) Hypomagnesemia (E83.42) Active confirmed Vital Signs Weight 256.6 lbs 02/06/2025 Blood pressure systolic 120 mm Hg 02/07/20 25 Blood pressure diastolic 70 mm Hg 025 Heart Rate 67 /min 02/06/2025 Height 65.25 in 02/06/2025 BMI 42.37 kg/m2 02/06/2025 Encounters Encounter Location Date Provider Diagnosis [facility] [address] [facility] [address] [phone] 02/06/2025 Yannick Jain Essential hypertensi on I10 [...] * TJ MARTINEZOB:[birth year] (70 yo F)Acc No.[id number]:02/06/2025 Progress Notes Patient: RADHA CAM Provider: Yannick Jain M.D. :1955 A ge:70 Y S ex:Female Date:02/06/2025 Address:[address] [place] Subjective: * Chief Complaints: * 1 . [...] Colonoscopy at [facility] Dr. 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 [...] affeine: yes, frequency:occasional. Marital Status: Single. Occupation: [employer]. Past smoking status: no. Alcohol: No. * [...] * Images: Billing Information: * Visit Code: 38750 Office Visit, Est Pt., Level 4. * Procedure Codes: G2211 Complex e/m visit add on. 1036F TOBACCO NON-USER. G8950 PREHTN/HTN BP DOC INDCD F/U DOC. G8752 MOST RECENT SYSTOLIC BP < 140MM HG. G8754 MOST RECENT DIASTOLIC BP < 90MM HG. * Electronic signature of Yannick Jain MD on 07/03/2025 at 01:13 PM EST Sign off status: Pending * Provider: Yannick Jain M.D. Date: 0 02/06/2025 Generated for Nile lipscomb/Adithya/eTransmitting on: 1 09/02/2024 01:13 PM EST History and Physical Notes * [...]
--- OUTSIDE RECORDS SUMMARY | 2025-06-05 14:45 | XMS_ITS | Encounter Summary ---
Author Organization [facility] Address [address] [place] [address] Care Team Providers Care Flowers Salesperson Name Role Phone Dillan Jain MD Primary Care Provider [phone] Reason for Visit * Reason Comments Lupus Follow up Osteoarthritis Follow up Encounter Details Date Type Department Care Team (Latest Contact Info) Description 06/05/2025 3:45 PM EDT Office Visit [facility] [address] [phone] DO [address] [phone] Systemic lupus erythematosus, unspecified SLE type, unspecified organ involvement status (Primary Dx); High risk medication use; Primary osteoarthritis involving multiple joints; Other fatigue Social History Tobacco Use Types Packs/Day Years Used Date Smoking Tobacco: Never Smokeless Tobacco: Never Tobacco Cessation:Counseling Given: Not Answered Alcohol Use Standard Drinks/Week Comments Not Currently 0 (1 standard drink = 0.6 oz pur e alcohol) Comments Unknown Sex and Gender Information Value Date Recorded Sex Assigned at Female 05/29/2024 9:02 AM EDT Legal Sex Female 1:01 PM EDT Gender Identity Female 05/29/2024 9:02 AM EDT Sexual Orientation Straight 05/29/2024 9: 02 AM EDT documented as of this encounter Last Filed Vital Signs Vital Sign Reading Time Taken Comments Blood Pressure 136/70 06/05/2025 3:36 PM EDT Pulse 75 06/05/2025 3:36 PM EDT Temperature 36.7 C (98 F) 06/05/2025 3:36 PM EDT Respiratory Rate - - Oxygen Saturation - - Inhaled Oxygen Concentration - - Weight 110 kg (242 lb) 06/05/2025 3:36 PM EDT Height 165.1 cm (5' 5 ) 06/05/2025 3:36 PM EDT Body Mass Index 40.27 06/05/2025 3:36 PM EDT documented in this encounter Patient Instructions * Attachments The following attachments cannot be sent through Care Everywhere. * Hydroxychloroquine Tablets (Gibraltarian) documented in this encounter Progress Notes * Derrick Way DO - 06/05/2025 3:45 PM EDTAssociated Problem(s): SLE (systemic lupus erythematosus) * 2008: VALENTINA 1:80 speckled * 10/25/22: VALENTINA positive, DS DNA 26 (0-4), Longo negative, SSA and SSB Normal, SAWMILL OR TIMBER YARD WORKER normal, chromatin normal, Renetta 1 normal, Centromere normal, SCL 70 normal, Ribosomal P Normal, ESR 46 (0-30) * Medications/treatments/interventions tried include: Tylenol, Advil, meloxicam, she saw Jayson Pack MD (Broaching Machine Repairer) in 2008, She has seen an orthopaedic surgeon, she has done physical therapy,she had hip replacement surgery, she had arthroscopic knee surgery, Percocet (Allergic/intolerant),Aleve (allergic/Intolerant), allopurinol, gabapentin, shoulder injection, she saw a pain managementspecialist, she had back injections, Plaquenil, Tramadol, knee injection, Baclofen, She has had knee replacement surgery 1. Check labs 2. Continue/refill Plaquenil 3. We gave her a handout on hydroxychloroquine to take home and review 4. Follow up in 6 months 5. She has some arthritic pain. We believe this is degenerative in nature. See below. * Derrick Way DO - 06/05/2025 3:45 PM EDTAssociated Problem(s): High risk medication use * Plaquenil 200 mg PO BID for SLE * Started 11/08/22 Patient's taking hydroxychloroquine should have an eye exam at least once/year to monitor for signsof medication toxicity * Derrick Way DO - 06/05/2025 3:45 PM EDTAssociated Problem(s): Osteoarthritis 1. Weight loss [...] 10. She has seen pain management specialists They have discussed possibly implanting a pain pump. They have also discussed possibly trying a spinal stimulator. 11. She had a back injection 12. She has had shoulder injection as well 13. She has tried taking tramadol 14. She has had knee injection 15. She has taken muscle relaxer's like Baclofen 16. She has had knee replacement surgery. * Nirmal Canales RN - 06/05/2025 3:45 PM EDTAddended by: NIRMAL CANALES on: 06/06/2025 03:12 PM Modules accepted: Orders * Derrick Way DO - 06/05/2025 3:45 PM EDT Office Follow Up Date: 06/05/2025 Patient Name: Sanjana Pierson Date of : 1955 Chief Complaint Patient presents with Lupus Follow up Osteoarthritis Follow up History of Present Illness: Sanjana Pierson is a 70 y.o. female who is here today for follow up. She established care with us as of 11/08/22. We have prescribed her Plaquenil. No recent serious injuries or infections. No fever. Today she rates her pain as 6/10 in severity. She has 3 hours/day of morning stiffness. No red or hot joints. Her joint swell. No muscle weakness. No muscle pain. She has back pain. No neck issues. No rash. No hair loss. No headaches or paresthesias. No lymphadenopathy. No abnormal bruising/bleeding. No GI or issues. No chest pain. No shortness of breath. No sicca symptoms. Subjective Review of Systems Constitutional: Positive for activity change and appetite change. HENT: Negative. Eyes: Negative. Respiratory: Negative. Cardiovascular: Negative. Gastrointestinal: Negative. Endocrine: Positive for polydipsia. Genitourinary: Negative. Musculoskeletal: Positive for arthralgias, back pain and joint swelling. Skin: Negative. Allergic/Immunologic: Negative. Neurological: Positive for dizziness and tremors. Hematological: Negative. Psychiatric/Behavioral: Negative. All other systems reviewed and are negative. Current Outpatient Medications: albuterol sulfate HFA 108 (90 Base) MCG/ACT inhaler, Inhale 1 puff Every 4 (Four) Hours As Needed.,Disp: , Rfl: allopurinol (ZYLOPRIM) 100 MG tablet, Take 1 tablet by mouth Daily., Disp: , Rfl: Aspirin ([place]) 81 MG capsule, Take 1 capsule by mouth Daily., Disp: , Rfl: atorvastatin (LIPITOR) 40 MG tablet, Take 1 tablet by mouth Daily., Disp: , Rfl: Baclofen (LIORESAL) 5 MG tablet, Take 1 tablet by mouth Daily., Disp: , Rfl: calcium carbonate (OS-GUY) 600 MG tablet, Take 1 tablet by mouth Daily., Disp: , Rfl: coenzyme Q10 100 MG capsule, Take 2 capsules by mouth Daily., Disp: , Rfl: esomeprazole (nexIUM) 20 MG capsule, Take 1 capsule by mouth Every Morning Before Breakfast. 1 hourbefore a meal swallowing whole. Do not crush or chew granules, Disp: , Rfl: gabapentin (NEURONTIN) 600 MG tablet, Take 1 tablet by mouth 3 (Three) Times a Day., Disp: , Rfl: hydroxychloroquine (PLAQUENIL) 200 MG [...] and allergy list as appropriate. Objective Vitals: 06/05/25 1536 BP: 136/70 Pulse: 75 Temp: 98 ??F (36.7 ??C) Weight: 110 kg (242 lb) Height: 165.1 cm (65 ) PainSc: 6 PainLoc: Knee Body mass index is 40.27 kg/m??. Physical Exam General: Well appearing 70 year old female. Not in distress. She is ambulating with a cane SKIN: No rashes. No alopecia. No subcutaneous [...] SLE type, unspecified organ involvement status * 2008: VALENTINA 1:80 speckled * 10/25/22: VALENTINA positive, DS DNA 26 (0-4), Longo negative, SSA and SSB Normal, SAWMILL OR TIMBER YARD WORKER normal, chromatin normal, Renetta 1 normal, Centromere normal, SCL 70 normal, Ribosomal P Normal, ESR 46 (0-30) * Medications/treatments/interventions tried include: Tylenol, Advil, meloxicam, she saw Jayson Pack MD (Broaching Machine Repairer) in 2008, She has seen an orthopaedic surgeon, she has done physical therapy,she had hip replacement surgery, she had arthroscopic knee surgery, Percocet (Allergic/intolerant),Aleve (allergic/Intolerant), allopurinol, gabapentin, shoulder injection, she saw a pain managementspecialist, she had back injections, Plaquenil, Tramadol, knee injection, Baclofen, She has had knee replacement surgery 1. Check labs 2. Continue/refill Plaquenil 3. We gave her a handout on hydroxychloroquine to take home and review 4. Follow up in 6 months 5. She has some arthritic pain. We believe this is degenerative in nature. See below. High risk medication use * Plaquenil 200 [...] 10. She has seen pain management specialists They have discussed possibly implanting a pain pump. They have also discussed possibly trying a spinal stimulator. 11. She had a back injection 12. She has had shoulder injection as well 13. She has tried taking tramadol 14. She has had knee injection 15. She has taken muscle relaxer's like Baclofen 16. She has had knee replacement surgery. Orders Placed This Encounter Procedures Anti-DNA Antibody, Double-stranded C4+C3 CBC Auto Differential CK Comprehensive Metabolic Panel UA / M With / Rflx Culture([facility] ONLY) - Urine, Clean Catch New Medications Ordered This Visit Medications hydroxychloroquine (PLAQUENIL) 200 MG tablet Sig: Take 1 tablet by mouth 2 (Two) Times a Day. Dispense: 60 tablet Refill: 5 Follow Up: Return in about 6 months (around 12/04/2025). Derrick Way DO [facility] [place] documented in this encounter Plan of Treatment Upcoming Encounters Date Type Department Care Team (Late st Contact Info) Description 12/08/2025 2:45 PM EDT Office Visit [facility] [address] [phone] [address] DO [address] [address] Scheduled Orders Name Type Priority Associated Diagnoses Orde r Schedule Comprehensive Metabolic Panel Lab Routine Systemic lupus erythematosus, unspecified SLE type, unspecified organ involvement status High risk medication use Primary osteoarthritis involving multiple joints Other fatigue Expected: 06/13/2025 (Approximate), Expires: 09/06/2026 documented as of this encounter Results * Anti-DNA Antibody, Double-stranded (06/13/2025 2:57 PM EDT) Blood us Derrick Way DO LAB BLOOD ORDERABLES F inal Result [facility] * C4+C3 (06/13/2025) Blood Derrick Way DO LAB BLOOD ORDERABLES F inal Result [facility] * UA / M With / Rflx Culture([facility] ONLY) - Urine, Clean Catch (06/12/2025) Urine Urine specimen obtained by clean catch procedure / Unknown [employer] DO URINE ORDERABLES Final Result Performing Organization Address City/[facility]/ZIP Co de Phone Number [facility] * CK (06/11/2025) Blood E la Carte DO LAB BLOOD ORDERABLES F inal Result Performing Organization Address [facility] Co de Phone Number [facility] * CBC Auto Differential (06/11/2025) Blood E la Carte DO LAB BLOOD ORDERABLES F inal Result Performing Organization Address [facility] Co de Phone Number [facility] documented in this encounter Visit Diagnoses Diagnosis Systemic lupus erythematosus, unspecified SLE type, unspecified organ involvement status- Primary High risk medication use Primary osteoarthritis involving multiple joints Other fatigue documented in this encounter Care Teams Flowers Salesperson Relationship Specialty Start Date End Date Dillan Jain MD Counts include [facility] beds at the [facility] MD [facility] [address] [facility] [address] [place] [address] PCP - General Family Medicine 05/28/24 documented as of this encounter
--- OUTSIDE RECORDS SUMMARY | 2025-06-26 10:15 | XMS_ITS ---
Author Organization [facility] Address [address] [facility] [address] [place] [id number] Care Team Providers Care Relationship Assoc Name Role Phone Yannick Jain Primary Care Provider [phone] Allergies Allergen (clinical drug ingredient) Drug/Non Drug Allergy documented on EMR Reaction Allergy Type Onset Date Status Aleve Unknown Drug Allergy Active acetaminophen / oxycodone Percocet Unknown Drug Allergy Active codeine Codeine sick to stomach Drug Allergy A ctive Results Component Value Reference Range Notes P-Basic Metabolic Panel (BMP ) Reviewed date:07/01/2025 11:57:48 AM Interpretation:Normal Performing Lab: Notes/Report: Test performed by [email or web address] [address] [place], [place] [address] [place] , [place] [address] Jung Jc MD, Files Supervisor CLIA: [id number] Sodium 134 135-145 mmol/L Potassium 4.1 3.5-5.3 mmol/L Chloride 99 97-108 mmol/L CO2 23 20-32 mmol/L Glucose 96 65-99 mg/dL BUN 20 8-23 mg/dL Creatinine 0.82 0.50-1.00 mg/dL Calcium 9.5 8.6-10.4 mg/dL eGFR by Creatinine 76 >59 mL/min/1.73m2 P-TSH Reviewed date:07/01/2025 11:57:48 AM Interpretation:Normal Performing Lab: Notes/Report: Test performed by [email or web address] [address] [place], [place] [address] [place] , [address], [place] [address] Jung Jc MD, Files Supervisor CLIA: [id number] TSH 2.32 0.43-5.25 mU/L REASON FOR VISIT check up, Needs colon [...] Risk Notes Problem Artificial knee joint present (355460684279) Status post total left knee replacement (Z96.652) Active confirmed Problem Cyst of thyroid (35812026) Thyroid cyst (E04.1) Active confirmed Vital Signs Weight 244.6 lbs 06/26/2025 Blood pressure systolic 120 mm Hg 06/26/20 25 Blood pressure diastolic 80 mm Hg 025 Heart Rate 70 /min 06/26/2025 Height 65.25 in 06/26/2025 BMI 40.39 kg/m2 06/26/2025 Encounters Encounter Location Date Provider Diagnosis [facility] [address] [place] [id number] 06/26/2025 Yannick Jain Essential hypertensi on I10 ; Heart palpitations R00.2 ; Status post total left knee replacement Z96.652 and Thyroid cyst E04.1 Assessments Encounter Date Diagnosis (ICD Code) Assessment Notes Treatment Notes Treatment Clinical Notes Section Notes 06/26/2025 Essential hypertension (ICD-10 - I10) 06/26/2025 Heart palpitations (ICD-10 - R00.2) 06/26/2025 Status post total left knee replacement (ICD-10 - Z96.652) 06/26/2025 Thyroid cyst (ICD-10 - E04.1) Plan Of Treatment Pending Test Test Name Order Date Ultrasound : Thyroid 06/26/2025 Next Appt Details Follow Up: 3 M, Reason: Progress Notes * MARTINEZTJOB:[birth year] (70 yo F)Acc No.[id number]:06/26/2025 Progress Notes Patient: RADHA CAM Provider: Yannick Jain M.D. :1955 A ge:70 Y S ex:Female Date:06/26/2025 Address:[address] [place], [place] [address] [address], [id number] Subjective: * Chief Complaints: * 1 . [...] * ROS: C ONSTITUTIONAL: Positive for A nother physician seen since last visit? Yes, Change [...] 01/12/15, COVID screening: negative 01/15/2020, Colonoscopy at [facility] Dr. Gallegos, tubular adenoma 01/16/2020, Epidural [...] affeine: yes, frequency:occasional. Marital Status: Single. Occupation: [employer]. Past smoking status: no. Alcohol: No. * [...] 4 . T hyroid cyst - E04.1 Plan: * Treatment: Value Reference Range B [...] 07/01/2025 08:37:33 AM EST > left a Tamiko Altamirnao 07/01/2025 11:57:33 AM EST > Patient informed of normal results. 2.?Thyroid cyst?LAB: P-TSH (Collection Date & Time - 06/27/2025 09:30 AM)?Normal* Value Reference Range T SH 2.32 0.43-5.25 - mU/L * Kathy Brownge 07/01/2025 08:37:33 AM EST > left a Tamiko Altamirano 07/01/2025 11:57:33 AM EST > Patient informed of normal results. ?Imaging: Ultrasound : Thyroid* GloriaShivnn 06/27/2025 08:4 3:50 AM EST > faxed to [facility] Scheduling * Follow Up: 3 M * Images: Billing Information: * Visit Code: 75752 Office Visit, Est Pt., Level 4. * Procedure Codes: * Electronic signature of Yannick Jain MD on 07/03/2025 at 01:13 PM EST Sign off status: Pending * Provider: Yannick Jain M.D. Date: 08/26/2024 Generated for Nile lipscomb/Adithya/eTdenis on: 09/02/2024 01:13 PM EST History and Physical [...]
--- OUTSIDE RECORDS SUMMARY | 2025-06-27 05:00 | XMS_ITS ---
Author Organization [facility] Address [address] [place] [phone] Care Team Providers Care Regroover Name Role Phone Yannick Jain Primary Care Provider REASON FOR VISIT blood work Encounters Encounter Location Date Provider Diagnosis [facility] [address] [place] [phone] 06/27/2025 Yannick Jain Essential hypertensi on I10 and Thyroid cyst E04.1 Assessments Encounter Date Diagnosis (ICD Code) Assessment Notes Treatment Notes Treatment Clinical Notes Section Notes 06/27/2025 Essential hypertension (ICD-10 - I10) 06/27/2025 Thyroid cyst (ICD-10 - E04.1) Plan Of Treatment Pending Test Test Name Order Date P-Basic Metabolic Panel (BMP) 06/27/2025 P-TSH 06/27/2025 Progress Notes * TJ MARTINEZOB:[birth year] (70 yo F)Acc No.[id number]:06/27/2025 Patient: RADHA CAM Provider: Yannick Jain M.D. :1955 A ge:70 Y S ex:Female Date:06/27/2025 Address:[address] [facility] [address] [id number] Subjective: * Chief Complaints: * 1 . Blood work. * Medical History: Objective: * Vitals: Assessment: * Assessment: 1. E ssential hypertension - I10 (Primary) 2 . T hyroid cyst - E04.1 ? Plan: * Treatment: 2. T hyroid cyst L AB: P-TSH * Procedure Codes: 3 6415 VENIPUNCT, ROUTINE* * Images: Billing Information: * Visit Code: * Procedure Codes: 26148 VENIPUNCT, ROUTINE*. * Electronic signature of Yannick Jain MD on 07/03/2025 at 01:12 PM EST Sign off status: Pending * Provider: Yannick Jain M.D. Date: 08/27/2024 Generated for Nile lipscomb/Adithya/Mariaelenaitting on: 09/02/2024 01:12 PM EST
--- NOTE | 2025-07-03 13:12 | US_ITS ---
FINAL REPORT TECHNIQUE: Sonographic images of the thyroid gland were obtained in the longitudinal and transverse planes. CLINICAL HISTORY: THYROID CYST COMPARISON: None FINDINGS: The right lobe volume is 4.1 mL. The right lobe is homogeneous. There are no cystic or solid nodules. The left lobe volume is 49.9 mL. There is a dominant mass in the left lobe, measuring up to 4.6 cm in size, mixed cystic and solid. The solid component involves mildly thickened septations and mild wall thickening, although the mass is predominantly cystic. This is a TI-RADS 2 category nodule, and the left lobe is enlarged secondary to this mass. The isthmus measures 3 mm. This is normal. IMPRESSION: Dominant mass in the left lobe of the thyroid gland as described above, predominantly cystic, TI-RADS category 2. Recommend ultrasound guided aspiration. Reviewed, Interpreted and Dictated by Ashley Pandya MD Transcribed by Alexa Casillas Authenticated and [facility]
--- OUTSIDE RECORDS SUMMARY | 2025-07-03 13:12 | XMS_ITS | Encounter Summary ---
[facility] Organization [facility] Address [address] [place] [address] Care Team Providers Care Victim Advocate Name Role Phone Dillan Jain MD Primary Care Provider [phone] Encounter Details Date Type Department Care Team (Late st Contact Info) Description 06/16/2025 Results Follow-Up [facility] [address] [place] [address] DO [address] [place] [address] Social History Tobacco Use Types Packs/Day Years [...] Visit [facility] [address] [address] DO [address] [id number] documented as of this encounter Visit Diagnoses Not on filedocumented in this encounter Care Teams Victim Advocate Relationship Specialty Start Date End Date Dillan Jain MD [address] [facility] [address] [facility] [address] [place] [address] PCP - General Family Medicine 05/28/24 documented as of this encounter
--- OUTSIDE RECORDS SUMMARY | 2025-07-03 13:13 | XMS_ITS | Encounter Summary ---
Author Organization [facility] Address [address] [place] [address] Care Team Providers Care Parts Casting Machine Operator Name Role Phone Dillan Jain MD Primary Care Provider [phone] Encounter Details Date Type Department Care Team (Late st Contact Info) Description 06/06/2025 Telephone [facility] [address] [address] DO [address] [address] Social History Tobacco Use Types Packs/Day Years [...] - 06/06/2025 4:01 PM EDT Jennifer with [facility] OP Registration called to verify we had the correct fax number. [phone]. Theydidn't receive lab orders for pt. I re-faxed them. -AVA Sousa * Telephone Encounter - Sarah Canales RN - 06/06/2025 3:38 PM EDT Faxed labs to [phone] per pt. request documented in this encounter Plan of Treatment Upcoming Encounters Date Type Department Care Team (Late st Contact Info) Description 12/08/2025 2:45 PM EDT Office Visit [facility] [address] [address] DO [address] [address] documented as of this encounter Visit Diagnoses Not on filedocumented in this encounter Care Teams Parts Casting Machine Operator Relationship Specialty Start Date End Date Dillan Jain MD [address] [facility] [address] [place] [address] PCP - General Family Medicine 05/28/24 documented as of this encounter
--- OUTSIDE RECORDS SUMMARY | 2025-07-03 13:13 | XMS_ITS | Encounter Summary ---
[facility] Address [address] [place] [address] Care Team Providers Care Long Distance Billing Operator Name Role Phone Dillan Jain MD Primary Care Provider [phone] Reason for Visit * Reason Onset Date Comments LAB ORDERS DOES NOT HAVE DR SPRINGER 06/10/2025 Encounter Details Date Type Department Care Team (Late st Contact Info) Description 06/10/[address] [facility] [address] [address] DO [address] [id number] LAB ORDERS DOES NOT HAVE DR SPRINGER [...] 3:37 PM EDT I re-faxed labs to [facility] at the number provided in pt's message below. - AVA Sousa * Telephone Encounter - Jerrica Carmona RegSched Rep - 06/10/2025 12:01 PM EDT Provider: SAFIA Caller: Sanjana Pierson Relationship to Patient: Self [facility] RECEIVED A LAB ORDER BUT IT DOES NOT HAVE THE DR SIGNATURE. PLEASE REFAXWITH DR SIGNATURE [phone] documented in this encounter Plan of Treatment Upcoming Encounters Date Type Department Care Team (Late st Contact Info) Description 12/08/2025 2:45 PM EDT Office Visit [facility] [address] [address] DO [address] [address] documented as of this encounter Visit Diagnoses Not on filedocumented in this encounter Care Teams Long Distance Billing Operator Relationship Specialty Start Date End Date Dillan Jain MD [address] [facility] [address] [facility] [address] [place] [address] PCP - General Family Medicine 05/28/24 documented as of this encounter
--- OUTSIDE RECORDS SUMMARY | 2025-07-03 13:13 | XMS_ITS | Data Portability ---
Author Organization [facility] ANGELICA BlatazarS GLENTANA CLOSED Address [address] [facility] [place] [address] Care Team Providers Care Butcher Fish Name Role Phone ABDI GUTIÉRREZ Primary Care Provider [phone] ABDI GUTIÉRREZ Referring Provider KYREE BUTLER Orthopedic Surgeon [phone] Assessment Encounter Date Assessment Date Assessment LastModified [...] week post op follow up with radiographs. [email or web address] Not available 04/22/2025 10:46:41 Plan of Treatment Reminders Order Date Submit Date Provider Last Modified By Organization Details Last Modified Time Details Appointments RECHECK 2024 03:00P M SHANNAN VEE PA-C Not available Not available Not available Lab None recorded. Referral None recorded. Procedures None recorded. Surgeries None recorded. Imaging None recorded. Medication Orders meloxicam 7.5 mg tablet 2024 025 [facility] 591, [address], [address], 05/14/2025 15:17:59 Patient TargetsNo targets recorded. Patient InstructionsNo instructions recorded. Reason for Referral None Reported. Results Created Date Observation Date Name Description Value Unit Range Abnormal Flag Note LastModifiedBy Organization Detail LastModifiedTime 03/06/2003/06/2025 PROTH ROMBI N TIME prothrombin time 10.5 secon ds 9.2-11 .0 normal Not Available [facility] [address] [place] [address], [address], 03/06/2025 13:21:19 03/06/2003/06/2025 PROTH ROMBI N TIME [...] NICAL PROST HETIC VALVE S Not Available [facility] [address] [place], [address], 03/06/2025 13:21:19 03/06/20 25 03/06/2025 PTT (APTT ) PTT (APTT) 25.0 secon ds 21.9-2 9.9 normal Not Available [facility] [address] [place] [address], [address], 03/06/2025 13:21:20 03/06/20 25 03/06/2025 COMPL ETE BLOOD COUNT white blood cells 8.6 10*3/ uL 3.8-10 .8 normal Not Available [facility] [address] [place] [address], [address], 03/06/2025 13:26:05 03/06/20 25 03/06/2025 COMPL ETE BLOOD COUNT red blood cells 4.20 10*6/ uL 3.80-5 .20 normal Not Available [facility] [address] [place] [address], [address], 03/06/2025 13:26:05 03/06/20 25 03/06/2025 COMPL ETE BLOOD COUNT hemoglobin 13.0 g/dL 12.0-1 6.0 normal Not Available [facility] [address] [place] [address], [address], 03/06/2025 13:26:05 03/06/20 25 03/06/2025 COMPL ETE BLOOD COUNT hematocrit 38.2 % 35.0-4 7.0 normal Not Available [facility] [address] [place] [address], [address], 03/06/2025 13:26:05 03/06/20 25 03/06/2025 COMPL ETE BLOOD COUNT MCV 91 fL 80-100 normal Not Available [facility] [address] [place] [address], [address], 03/06/2025 13:26:05 03/06/20 25 03/06/2025 COMPL ETE BLOOD COUNT MCH 31 pg 26-35 normal Not Available [facility] [address] [place] [address], [address], 03/06/2025 13:26:05 03/06/20 25 03/06/2025 COMPL ETE BLOOD COUNT MCHC 34 g/dL 32-36 normal Not Available [facility] [address] [place] [address], [address], 03/06/2025 13:26:05 03/06/20 25 03/06/2025 COMPL ETE BLOOD COUNT RDW 14.4 % 11.0-1 5.0 normal Not Available [facility] [address] [place] [address], [address], 03/06/2025 13:26:05 03/06/20 25 03/06/2025 COMPL ETE BLOOD COUNT MPV 8.9 fL 6.2-10 .5 normal Not Available [facility] [address] [place] [address], [address], 03/06/2025 13:26:05 03/06/20 25 03/06/2025 COMPL ETE BLOOD COUNT platelet count 245 10*3/ uL 150-40 0 normal Not Available [facility] [address] [place] [address], [address], 03/06/2025 13:26:05 03/06/20 25 03/06/2025 COMPL ETE BLOOD COUNT neutrophil,a bsolute 5.3 10*3/ uL 1.6-8. 4 normal Not Available [facility] [address] [place] [address], [address], 03/06/2025 13:26:05 03/06/20 25 03/06/2025 COMPL ETE BLOOD COUNT lymphocyte,a bsolute 2.4 10*3/ uL 0.4-5. 1 normal Not Available [facility] [address] [place] [address], [address], 03/06/2025 13:26:05 03/06/20 25 03/06/2025 COMPL ETE BLOOD COUNT monocyte,abs olute 0.6 10*3/ uL 0.0-1. 2 normal Not Available [facility] [address] [place] [address], [address], 03/06/2025 13:26:05 03/06/20 25 03/06/2025 COMPL ETE BLOOD COUNT eosinophil,a bsolute 0.2 10*3/ uL 0.0-0. 8 normal Not Available [facility] [address] [place] [address], [address], 03/06/2025 13:26:05 03/06/20 25 03/06/2025 COMPL ETE BLOOD COUNT basophil,abs olute 0.0 10*3/ uL 0.0-0. 3 normal Not Available [facility] [address] [place] [address], [address], 03/06/2025 13:26:05 03/06/20 25 03/06/2025 COMPL ETE BLOOD COUNT % neutrophils 61.7 % 42.0-7 8.0 normal Not Available [facility] [address] [place] [address], [address], 03/06/2025 13:26:05 03/06/20 25 03/06/2025 COMPL ETE BLOOD COUNT % lymphocytes 27.7 % 11.0-4 7.0 normal Not Available [facility] [address] [place] [address], [address], 03/06/2025 13:26:05 03/06/20 25 03/06/2025 COMPL ETE BLOOD COUNT % monocytes 7.2 % 0.0-11 .0 normal Not Available [facility] [address] [place] [address], [address], 03/06/2025 13:26:05 03/06/20 25 03/06/2025 COMPL ETE BLOOD COUNT % eosinophils 2.9 % 0.0-7. 0 normal Not Available [facility] [address] [place] [address], [address], 03/06/2025 13:26:05 03/06/20 25 03/06/2025 COMPL ETE BLOOD COUNT % basophils 0.5 % 0.0-3. 0 normal Not Available [facility] [address] [place] [address], [address], 03/06/2025 13:26:05 03/06/20 25 03/06/2025 COMPL ETE BLOOD COUNT nucleated red cells 0.1 % 0.0-0. 9 normal Not Available [facility] [address] [place], [address], 03/06/2025 13:26:05 03/06/20 25 03/06/2025 COMPL ETE BLOOD COUNT nucleated RBCs, absolute 0.01 10*3/ uL not estab. normal Not Available [facility] [address] [place] [address], [address], 03/06/2025 13:26:05 03/06/20 25 03/06/2025 GLYCO HEMOG LOBIN A1C glyco HGB A1C 6.4 % 0.0-5. 6 high Not Available [facility] [address] [place] [address], [address], 03/06/2025 13:46:11 03/06/20 25 03/06/2025 GLYCO HEMOG LOBIN A1C estimated avg. glucose 137 mg/dL _(josephine c) normal A1c value s betwe en 5.7% to 6.4% indic ate predi abete s. Resul ts 6.5% or great er is diagn ostic of diabe audrey. Ameri can Diabe audrey [employer] iatio n (diab etes. org) Not Available [facility] [address] [place], [address], 03/06/2025 13:46:11 03/06/20 25 03/06/2025 BASIC METAB OLIC PANEL glucose 105 mg/dL 74-100 high Not Available [facility] [address] [place] [address], [address], 03/06/2025 13:59:28 03/06/20 25 03/06/2025 BASIC METAB OLIC PANEL blood urea nitrogen 17 mg/dL 6-20 normal Not Available [facility] [address] [place] [address], [address], 03/06/2025 13:59:28 03/06/20 25 03/06/2025 BASIC METAB OLIC PANEL creatinine 1.04 mg/dL 0.50-0 .95 high Not Available [facility] [address] [place] [address], [address], 03/06/2025 13:59:28 03/06/20 25 03/06/2025 BASIC METAB OLIC PANEL BUN/creatini ne ratio 16 (calc ) 10-20 normal Not Available [facility] [address] [place] [address], [address], 03/06/2025 13:59:28 03/06/20 25 03/06/2025 BASIC METAB OLIC PANEL sodium 141 mmol/ L 136-14 5 normal Not Available [facility] [address] [place] [address], [address], 03/06/2025 13:59:28 03/06/20 25 03/06/2025 BASIC METAB OLIC PANEL potassium 4.1 mmol/ L 3.4-5. 0 normal Not Available [facility] [address] [place] [address], [address], 03/06/2025 13:59:28 03/06/20 25 03/06/2025 BASIC METAB OLIC PANEL chloride 101 mmol/ L 98-107 normal Not Available [facility] [address] [place] [address], [address], 03/06/2025 13:59:28 03/06/20 25 03/06/2025 BASIC METAB OLIC PANEL carbon dioxide 22 mmol/ L 22-31 normal Not Available [facility] [address] [place] [address], [address], 03/06/2025 13:59:28 03/06/20 25 03/06/2025 BASIC METAB OLIC PANEL anion gap 18 (calc ) 7-25 normal Not Available [facility] [address] [place], [address], 03/06/2025 13:59:28 03/06/20 25 03/06/2025 BASIC METAB OLIC PANEL calcium 9.9 mg/dL 8.6-10 .2 normal Not Available [facility] [address] [place], [address], 03/06/2025 13:59:28 03/06/20 25 03/06/2025 BASIC METAB OLIC PANEL eGFR 57 >= 60 abnormal NOT E New calcu latio n for GFR (CKD- EPI 2020) is formu lated witho ut race adjus tment facto rs at the [facility] menda tion of the [facility] at[facility] and [facility] ty of Nephr ology . This calcu latio n has not been valid ated in pregn ant women . For pedia tric patie nts refer to https ://isrrael w.shantel sterling.o rg/pr ofess ional s/KDO QI/gf r_cal culat orPed Not Available [facility] [address] [place], [address], 03/06/2025 13:59:28 03/06/20 25 03/06/2025 FRUCT OSAMI [...] 1-3 WEEKS OR LONGE R. Not Available [facility] [address] [place], [address], 03/06/2025 14:00:15 03/06/20 25 03/08/2025 MRSA CULTU RE SCREE N MRSA culture screen NO MRSA ISOLAT ED Not Available [facility] [address] [place], [address], 03/08/2025 15:13:50 02/27/2002/26/2025 XR, knee, 4 or more view [facility] [facility] [address] [facility] [place], [place] [id number] Patien t Name: JAREK johnson : [birth year] [...] Audelia cheung MD on 02/27/20 4:[email or web address] [facility] [address] [place], [address], 02/27/2025 12:01:20 03/12/2003/12/2025 XR, joint , multi ple, 1 view [facility] [address] [facility] [place] [address] Patikyra t Name: JAREK johnson : 89 [...] cheung MD on 025 1:52 PM [email or web address] [facility] [address] [place], [address], 03/19/2025 06:25:50 04/22/20 25 04/22/2025 XR, knee, 3 view [facility] [address] [place] [address] Patien t Name: JAREK PIERSON Kalpanakyra johnson [...] cheung MD on 04/22/20 25 10:09 AM [email or web address] [facility] [address] [place], [address], 04/22/2025 13:01:57 05/20/2005/14/2025 XR, knee, 3 view [facility] [address] [place] [address] Jacobo johnson Name: JAREK johnson : [birth year]51 [...] Roldan Orona MD on 025 8:[address] [facility] [address] [place], [address], 05/21/2025 08:20:59 Result Notes Documentation Provider Name and Address Organization Details Recorded Time Xr, Joint, Multiple, 1 View : [facility] [address] [place] [address] Patient Name: SANJANA PIERSON Patient : 1955 [...] By: Santos Salmon MD E BUTLER MD [address] [place] [address], [address], [facility] 03/19/2025 06:25:50 Xr, Knee, 3 View : [facility] [address] [place] [address] Patient Name: SANJANA PIERSON Patient : 1955 [...] without evidence of loosening. Interpreted By: Santos Salmno MD NAN VEE PA-C [facility] [place], [address], [facility] 04/22/2025 13:01:57 Xr, Knee, 3 View : [facility] [address] [place] [address] Patient Name: SANJANA PIERSON Patient : 1955 [...] By: Roldan Orona MD NAN VEE PA-C [address] [place] [address], [address], 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 16:57:42 Obese class III 241782878 Active 2024 KYREE SARABIA MD [address] [place] [address], [address], [facility] 16:57:43 Osteoarthri tis of left knee joint 2682093199443 09 Active 2024 KYREE SARABIA MD [address] [place] [address], [address] , [facility] 16:57:45 Problem Notes None recorded. Procedures Surgical History Date Name Laterality Status Provider Name and Address Organization Details Recorded Time 5 total replacement of left knee joint completed Cathy Gill [facility] 04/22/2025 08:14:17 PCM Visit completed Tamiko Johnson [facility] 04/14/2025 14:21:58 total replacement of right hip joint completed Cathy Gill [facility] 03/04/2025 15:24:13 Imaging Results None recorded. Procedure Notes None recorded. Medical Equipment None Reported. Allergies Allergen ID Allergen Name Allergen Category Reaction Reaction Severity Criticality Documentation Date Start Date Code Code System Note Provider Name and Address Organization Details Recorded Time 438999 codeine medicatio n Not available Not available Not available 05/06/2024 2670 RxNorm Tamra Domonique [facility] 09:35:48 461055 naproxen medicatio n Not available Not available Not available 05/06/2024 7258 RxNorm [facility] 4 09:35:54 036963 acetamino phen medicatio n Not available Not available Not available 07/03/20252023 161 RxNorm unrec ogniz ed react ion (text : Provi Welch d, code: 10953 0000) [facility] Not Available [facility] - External Data [employer] - prod 5 08:54:22 852803 oxycodone hydrochlo ride medicatio n Not available Not available Not available 07/03/20252023 83384 RxNorm unrec ogniz ed react ion (text : Other (See Comme nts), code: 34539 003) (from exter nal sour e) Not Available herman - External Data Service - prod 5 08:54:58 815102 ketorolac medicatio n Not available Not available Not available 07/03/2025 83865 RxNorm Not Available herman - External Data Service - prod 5 08:55:28 912883 tramadol medicatio n Not available Not available Not available 07/03/20252021 19892 RxNorm Not Available herman - [employer] - prod 5 08:55:28 095725 naproxen sodium medicatio n Not available Not available Not available 07/03/20252024 34078 2 RxNorm Stoma ch cramp s Not Available herman - External Data Service - prod 5 08:55:45 937797 oxycodone medicatio n Not available Not available Not available 07/03/20252024 7804 RxNorm Stoma ch cramp s Not Available herman - External Data Service - prod 5 08:55:45 Medications Name Sig Start Date Stop Date [...] Last Updated DateTime 162.56 cm 43.5 kg/m2 871181. 03 g 77 /min 7 119/71 mm[Hg] [facility] 10:19:32 Date Recorded Body height Body mass index (BMI) Body weight Pain severity - 0-10 verbal numeric rating [Score] - Reported Provider Name and Address Organization Details Last Updated DateTime 03/23/2025 162.56 cm 43.4 kg/m2 500947.87 g 7 Tamiko Johnson [facility] 03/28/2025 10:25:41 Date Recorded Body height Body mass index (BMI) Body weight Provider Name and Address Organization Details Last Updated DateTime 04/22/2025 162.56 cm 43.4 kg/m2 075907.87 g Justine Reese [facility] 04/22/2025 09:47:34 Date Recorded Body height Body mass index (BMI) Body weight Provider Name and Address Organization Details Last Updated DateTime 05/14/2025 162.56 cm 43.4 kg/m2 857023.87 g Slava Blakely [facility] 05/14/2025 14:38:34 Social History Question Answer Notes LastModified by Organizat ion Details LastModified Time Tobacco Smoking Status [facility]/04/[facility] 15:19:07 What Was The Date Of Your Most Recent Tobacco Screening? 03/04/2025 [email or web address] Information not available 03/04/2025 Has Tobacco Cessation Counseling Been Provided? No Information not available 03/04/2025 Sex: Female Functional Status Question Answer Note LastModified by Organizat ion Details LastModified Time Do you use any illicit or recreational drugs? No [email or web address] Information not available 03/04/2025 Do you or have you ever used any other forms of tobacco or nicotine? No [email or web address] Information not available 03/04/2025 What is your level of alcohol consumption? None [email or web address] Information not available 03/04/2025 Mental Status None recorded. Family History Nothing Reported. Medical History Condition Response Allergies/Hayfever N Other N Gout Y Anxiety/Depression N Thyroid Disease N Heart Conditions N Kidney Stones N Hernia N Migraines N COPD N Glaucoma N Pneumonia N Skin Problems N Immune System Disorder N Anesthesia Complications N Heart Attack (MT) N Mental Illness N Neurological Problems N [...] Time zoster recombinant 9 completed Cathy Gill [facility] 03/04/2025 15:18:20 zoster recombinant 9 completed Cathy Gill [facility] 03/04/2025 15:18:20 Influenza, high-dose, quadrivalent, PF 2 [facility] 03/04/2025 15:18:20 Tdap 9 completed Cathy panchal, [facility] 03/04/2025 15:18:20 Pneumococcal conjugate PCV 13 9 completed Cathy Gill null, [facility] 03/04/2025 15:18:20 Influenza, high-dose, trivalent, PF 9 completed Cathy Gill null, [facility] 03/04/2025 15:18:20 Influenza, high-dose, trivalent, PF 0 completed Cathy Gill null, [facility] 03/04/2025 15:18:20 Influenza, high-dose, trivalent, PF 8 completed Cathy panchal, [facility] 03/04/2025 15:18:20 Past Encounters Encounter ID Performer Location Encounter Start Date Encounter Closed Date Diagnosis/Indication Diagnosis SNOMED-CT Code Diagnosis ICD10 Code Diagnosis IMO Codes Diagnosis Note [id number] ASHLEIGH ROGERS APRN [facility] [address] [place] [address] 02/05/2024 12:53:38 02/06/2024 05:14:28 Lumbar spondylosis 445713195 M47.896 [id number] LISA ECHEVERRIA PA-C NEUROSURG [facility] [address] [place] [address] 05/06/2024 09:29:54 05/07/2024 04:26:58 Low back pain 960770465 M54.50 [id number] YULIYA NO PA-C [facility] [address] [place] [address] 02/26/2025 15:18:11 02/26/2025 16:03:43 Osteoarthritis of left knee joint 5403550037 49766 M17.12 [id number] Mrs. Pierson is a pleasant 70-year-ol d female here today for initial evaluation of left knee osteoarthr itis, knee pain. She reports she has been working with Dr. Braga at [facility], she has had multiple left knee [...] today. I will set him up with utility spray operator and have him see Dr. Voss for formal surgical discussion along with risks/bene fits of a total knee arthroplas ty. Possible surgery: ASC vs SJHPertine nt medical history: Denies cardiac/liane ng/DVT/PE/ smoking/di abetes historyOth er notable informatio n: Interestin gly, she has 11 sisters and one brother, boyfriend will help her after surgery ; difficulty with NSAIDs due to stomach issues [id number] KYREE Rain MD [facility] [address] [place] [address] 03/04/2025 15:13:56 03/06/2025 14:42:04 Osteoarthritis of left knee joint 4531431860 04701 M17.12 [id number] ASSESSMENT : DJD LEFT knee PLAN:The patient [...] potential cost sharing responsibi lities; only one [facility] can furnish and bill for PCM services during a calendar month, and the patient can stop these services at any time. The patient understand s and has verbally consented to accept PCM services and has been provided a copy of a written explanatio n of this service today. Surgery date: 03-31-25[facility] location: [facility] equipment: Cemented Ruma MCPre-op clearance: Alvaro Whaley medical clearance: DVT prophylaxi s: ASA, TEDAdmissi on status: OUTPATIENT Discharge plan: overnight admissionP T: home health Allergies: otherSkin testing: No Obese class III 27482053 5 E66.813 8978914401 Class III obesity with BMI 43. Obesity increases this patient's risk for medical and surgical complicati ons including superficia l deep infection, respirator y compromise , aseptic loosening, and premature component wear. Weight loss prior to surgery was strongly encouraged . Joint diso rder due to systemic lupus erythematosus 5301852806 M32.9 [id number] She is currently maintained on hydroxychl oroquine [...] is considered a nonmodifia ble risk factor. [id number] RADHA YEN PA-C [facility] [address] [place] [address] 03/12/2025 10:10:26 03/13/2025 05:19:28 Pre-surgery evaluation 830828293 Z01.067 0789112 Chronic conditions appear stable. Preoperati ve lab [...] to the best of my ability. Prediabetes 102311075 R7 3.03 Patient is prediabeti c on preoperati ve screening. Recommend follow-up with primary care for recheck in 3 to 6 months. Discussed lifestyle modificati ons. Serum crea tinine above reference range 670801681 R79.89 689143 Creatinine 1.04 with EGFR 57. Limit nephrotoxi c agents postoperat ively. Irregular heart beat 361 991147 I49.9 587174 EKG @ [facility]- followed by [facility] cardiology -controlle d RRR today [id number] KYREE Rain MD [facility] [address] [place] [address] 03/24/2025 14:15:04 04/15/2025 10:24:56 Osteoarthritis of left knee joint 8870807758 61440 M17.12 [id number] Sanjana was seen by Dr Chip rain where surgical plan was discussed and finalized for left total knee arthroplas ty on 03/31/25. [id number] KYREE Rain MD SURGERY SCHEDULE [address] [place] [address] 04/03/2025 14:43:47 04/11/2025 13:30:41 [id number] SHANNAN VEE PA-C [facility] [address] [place] [address] 04/22/2025 09:41:13 04/22/2025 10:44:35 [id number] SHANNAN VEE PA-C [facility] [address] [place] [address] 05/14/2025 13:52:09 05/14/2025 15:21:36 History of left total knee replacement 8065733976 644517 Z96.652 [id number] Pt is here today for 6 week [...] [employer] (MEDICARE SUPPLEMENT) Sanjaan Pierson [id number] Sanjana Pierson 04/21/2025 1 [place] Sanjana Pierson [id number] Sanjana Pierson Notes Date Note Type Note Provider Name and Address Organization Details Recorded Time 5 text/html ROS as noted in the HPI Surgery Date: 03/31/25Surgical Procedure: left total knee arthroplastyH[facility]: 03/06/25 Pertinent past medical history for essential hypertension, lupus, hypokalemia, asthma with PRN albuterol,Account Resolution Specialist [facility] - Cath 2018 - for skipping heart beats - normal, [...] n/v/d. No dysuria, hematuria. RADHA YEN PA-C [address] [place], [address], [facility] 03/12/2025 18:17:36 5 text/html 04/22/25Patient is [...] of pain medicine. SHANNAN VEE PA-C [address] [place], [address], [facility] 04/22/2025 10:47:51 5 text/html 05/14/25Patient is [...] of pain medicine. SHANNAN VEE PA-C [address] [place], [address], [facility] 05/14/2025 15:22:49 OBGyn Episode No OBEpisode recorded.
--- OUTSIDE RECORDS SUMMARY | 2025-07-03 13:13 | XMS_ITS | Encounter Summary ---
[facility] Address [address] [place] [address] Care Team Providers Care C Wpf Developer Name Role Phone Dillan Jain MD Primary Care Provider [phone] Encounter Details Date Type Department Care Team [...] Description 12/08/2025 2:45 PM EDT Office Visit [facility] RHE[facility]Y [address] [place] [phone] DO 330 [facility] [address] [place] [address] documented as of this encounter Visit Diagnoses Not on filedocumented in this encounter Care Teams C Wpf Developer Relationship Specialty Start Date End Date Dillan Jain MD [address] [place] [facility] [address] [place] [address] PCP - General Family Medicine 05/28/24 documented as of this encounter
--- OUTSIDE RECORDS SUMMARY | 2025-07-03 13:13 | XMS_ITS | Clinical Summary ---
[facility] Organization [facility] Address [address] [place] [address] Care Team Providers Care Communications Field Technician Name Role Phone Dillan Jain MD Primary Care Provider [phone] Allergies Active Allergy Reactions Criticality Noted Date [...] (0-4), Longo negative, SSA and SSB Normal, SANDING MACHINE OPERATOR OR TENDER normal, chromatin normal, Renetta 1 normal, Centromere normal, SCL 70 normal, Ribosomal P Normal, ESR 46 (0-30) * Medications/treatments/interventions tried include: Tylenol, Advil, meloxicam, she saw Jayson Pack MD (American Indian Policy Specialist) in 2008, She has seen an orthopaedic surgeon, she has done physical therapy, she had hip replacement surgery, she had arthroscopic knee surgery, Percocet (Allergic/intolerant), Aleve (allergic/Intolerant), allopurinol, gabapentin, shoulder injection, she saw a painter helper sign, she had back injections, Plaquenil, Tramadol, knee [...] (0-4), Longo negative, SSA and SSB Normal, SANDING MACHINE OPERATOR OR TENDER normal, chromatin normal, Renetta 1 normal, Centromere normal, SCL 70 normal, Ribosomal P Normal, ESR 46 (0-30) * Medications/treatments/interventions tried include: Tylenol, Advil, meloxicam, she saw Jayson Pack MD (American Indian Policy Specialist) in 2008, She has seen an orthopaedic surgeon, she has done physical therapy, she had hip replacement surgery, she had arthroscopic knee surgery, Percocet (Allergic/intolerant), Aleve (allergic/Intolerant), allopurinol, gabapentin, shoulder injection, she saw a painter helper sign, she had back injections, Plaquenil, Tramadol, knee [...] (0-4), Longo negative, SSA and SSB Normal, SANDING MACHINE OPERATOR OR TENDER normal, chromatin normal, Renetta 1 normal, Centromere normal, SCL 70 normal, Ribosomal P Normal, ESR 46 (0-30) * Medications/treatments/interventions tried include: Tylenol, Advil, meloxicam, she saw Jayson Pack MD (American Indian Policy Specialist) in 2008, She has seen an orthopaedic surgeon, she has done physical therapy, she had hip replacement surgery, she had arthroscopic knee surgery, Percocet (Allergic/intolerant), Aleve (allergic/Intolerant), allopurinol, gabapentin, shoulder injection, she saw a painter helper sign, she had back injections, Plaquenil, Tramadol, knee [...] Encounters Date Type Department Care Team Description 06/16/2025 Results Follow-Up [facility] RHEUMATOLOGY [address] [place] [phone] DO 06/10/[address] [facility] RHEUM[facility]Y [address] [place] [phone] DO LAB ORDERS DOES NOT HAVE DR SIGNATURE 06/06/[address] [facility]HE[facility] [address] [place] [phone] DO 06/05/2025 3:45 PM EDT Office Visit [facility] RHEUMATOLOGY [address] [place] [address] [phone] DO Systemic lupus erythematosus, [...] 12/08/2025 2:45 PM EDT Office Visit [facility] RHEUMATOLOGY [address] [phone] [address] DO [address] [address] Health Maintenance Due Date Last Done Comments [...] Procedure Name Priority Date/Time Associated Diagnosis Comments ANTI-DNA ANTIBODY, DOUBLE-STRANDED Routine 06/13/2025 2:57 PM EDT Systemic lupus erythematosus, unspecified SLE type, unspecified organ involvement status High risk medication use Primary osteoarthritis involving multiple joints Other fatigue C4+C3 Routine 06/13/2025 Systemic lupus erythematosus, unspecified SLE type, unspecified organ involvement status High risk medication use Primary osteoarthritis involving multiple joints Other fatigue UA/M W/RFLX CULTURE ([facility] ONLY) Routine 06/12/2025 Systemic lupus erythematosus, unspecified SLE type, unspecified organ involvement status High risk medication use Primary osteoarthritis involving multiple joints Other fatigue CK Routine 06/11/2025 Systemic lupus erythematosus, unspecified SLE type, unspecified organ involvement status High risk medication use Primary osteoarthritis involving multiple joints Other fatigue CBC WITH AUTO DIFFERENTIAL Routine 06/11/2025 Systemic lupus erythematosus, unspecified SLE type, unspecified organ involvement status High risk medication use Primary osteoarthritis involving multiple joints Other fatigue from Last 3 Months Results * Anti-DNA Antibody, Double-stranded (06/13/2025 2:57 PM EDT) Blood us Derrick Way DO LAB BLOOD ORDERABLES F inal Result [facility] * C4+C3 (06/13/2025) Blood Derrick [address] DO LAB BLOOD ORDERABLES F inal Result Performing Organization Address [facility] de Phone Number [facility] * UA / M With / Rflx Culture([facility] ONLY) - Urine, Clean Catch (06/12/2025) Urine Urine specimen obtained by clean catch procedure / Unknown Derrick Way DO URINE ORDERABLES Final Result Performing Organization Address [facility] de Phone Number [facility] * CBC Auto Differential (06/11/2025) Blood Derrick [address] DO LAB BLOOD ORDERABLES F inal Result Performing Organization Address [facility] Co de Phone Number [facility] * CK (06/11/2025) Blood Derrick [address] LAB BLOOD ORDERABLES F inal Result Performing Organization Address [facility] de Phone Number [facility] from Last 3 Months Insurance MEDICARE A & B [facility] [employer] Care Teams Communications Field Technician Relationship Specialty Start Date End Date Dillan Jain MD [address] [facility] [address] [facility] [address] [place] [address] PCP - General Family Medicine 05/28/24
--- OUTSIDE RECORDS SUMMARY | 2025-07-03 13:14 | XMS_ITS | Encounter Summary ---
[facility] Address [address] [place] [address] Care Team Providers Care Public Affairs Specialist Name Role Phone Dillan Jain MD Primary Care Provider [phone] [phone] Encounter Details Date Type Department Care Team (Late st Contact Info) Description 12/05/2024 Results Follow-Up [facility] RHEUMATOLOGY [address] [place] [phone] DO [address] [place] [phone] Social History Tobacco Use Types Packs/Day Years [...] Description 12/08/2025 2:45 PM EDT Office Visit [facility] RHEUMATOLOGY [address] [phone] DO [address] [phone] documented as of this encounter Visit Diagnoses Not on filedocumented in this encounter Care Teams Public Affairs Specialist Relationship Specialty Start Date End Date Dillan Jain MD [address] [place] [facility] [address] [facility] [address] [place] [address] PCP - General Family Medicine 05/28/24 documented as of this encounter
--- OUTSIDE RECORDS SUMMARY | 2025-07-03 13:14 | XMS_ITS | Encounter Summary ---
[facility] Organization [facility] Address [address] [place] [address] Care Team Providers Care Medical Facilities Section Director Name Role Phone Dillan Jain MD Primary Care Provider [phone] Encounter Details Date Type Department Care Team (Late st Contact Info) Description 12/09/2024 Results Follow-Up [facility] RHEUMATOLOGY [address] [place] [phone] DO [address] [place] [phone] Social History Tobacco Use Types Packs/Day Years [...] Office Visit [facility] RHEUMATOLOGY [address] [phone] DO [address] [phone] documented as of this encounter Visit Diagnoses Not on filedocumented in this encounter Care Teams Medical Facilities Section Director Relationship Specialty Start Date End Date Dillan Jain MD [address] [place] [facility] [address] [facility] [address] [place] [address] PCP - General Family Medicine 05/28/24 documented as of this encounter
--- OUTSIDE RECORDS SUMMARY | 2025-07-03 13:14 | XMS_ITS | Patient Health Record ---
Author Organization [facility] Address [address] [facility] [address] [place] [phone] Care Team Providers Care Director Institution Name Role Phone Yannick Jain Primary Care Provider Boris Aguilar Unavailable [phone] Lydia Moseley Unavailable [phone] Allergies Allergen (clinical drug ingredient) Drug/Non Drug Allergy documented on EMR Reaction Allergy Type Onset Date Status Aleve Unknown Drug Allergy Active acetaminophen / oxycodone Percocet Unknown Drug Allergy Active codeine Codeine sick to stomach Drug Allergy A ctive Results Component Value Reference Range Notes P-Comprehensive Metabolic Pa alysha (CMP) Reviewed date:12/06/2024 10:50:40 AM Interpretation:alk phos 142 Performing Lab: Notes/Report: Test performed by [facility] [address] [place] [address] , [address], [place] [address] Jung Jc MD, Supervisor Wall Mirror Department CLIA: [id number] Sodium 138 135-145 mmol/L Potassium 4.4 3.5-5.3 [...] Interpretation:satisfactory Performing Lab: Notes/Report: Test performed by [facility] [address] [place] [address] , [address], [place] [address] Jung Jc MD, Supervisor Wall [employer] Department CLIA: [id number] Sodium 136 135-145 mmol/L Potassium 4.5 3.5-5.3 [...] Interpretation:Normal Performing Lab: Notes/Report: Test performed by [facility] [address] [place] [address] , [address], [place] [address] Jung Jc MD, Supervisor [employer] Department CLIA: [id number] Magnesium 1.7 1.6-2.4 mg/dL P-Basic Metabolic Panel (BMP ) Reviewed date:07/01/2025 11:57:48 AM Interpretation:Normal Performing Lab: Notes/Report: Test performed by [facility] [address] [place] [address] , [address], [place] [address] Jung Jc MD, Supervisor [employer] Department CLIA: [id number] Sodium 134 135-145 mmol/L Potassium 4.1 3.5-5.3 mmol/L Chloride 99 97-108 mmol/L CO2 23 20-32 mmol/L Glucose 96 65-99 mg/dL BUN 20 8-23 mg/dL Creatinine 0.82 0.50-1.00 mg/dL Calcium 9.5 8.6-10.4 mg/dL eGFR by Creatinine 76 >59 mL/min/1.73m2 P-TSH Reviewed date:07/01/2025 11:57:48 AM Interpretation:Normal Performing Lab: Notes/Report: Test performed by [facility] [address] [place] [address] , [place] [address] Jung Jc MD, Supervisor [employer] Department CLIA: [id number] TSH 2.32 0.43-5.25 mU/L P-Basic Metabolic Panel (BMP ) Reviewed date:08/08/2024 01:31:20 PM Interpretation: Performing Lab: Notes/Report: Test performed by [facility] [address] [place] [address] , [address], [place] [id number] Jung Jc MD, Supervisor Wall [employer] Department CLIA: [id number] Sodium 137 135-145 mmol/L Potassium 4.2 3.5-5.3 [...] Duration) Notes Start Date End Date Status Atorvastatin Calcium 40 MG 1 tab(s) oral ly once a day Active NexIUM 24HR 20 MG 1 cap(s) orally once a day (in the morning) Active Triamterene-HCTZ 37.5-25 MG Take 1 table t by mouth once daily; Duration: 30 Active Hydroxychloroquine Sulfate 200 MG 1 tab twice daily Active Allopurinol 100 MG Take 1 tablet by mouth once daily; Duration: 90 Active Meloxicam 7.5 MG 1 tablet Orally Once a day Active Primidone 50 MG Take 1 tablet by mouth twice daily; Duration: 90 Active Aspirin Adult Low Dose 81 MG 1 tab(s) or ally once a day Active Spironolactone 25 MG Take 1 tablet by mouth once daily; Duration: 90 Active Losartan Potassium 50 MG 1 tablet Orally Once a day; Duration: 30 day(s) Active traMADol HCl 50 MG 1 tablet as needed Orally three times a day as needed 04/26/2025 Active Montelukast Sodium 10 MG 1 tab(s) orally once a day; Duration: 90 days 05/27/2017 Active Metoprolol Succinate ER 50 MG 1 tab(s) orally once a day Active Gabapentin 600 MG 1 tablet Orally Once a day Active CoQ-10 200 MG as directed Orally 02/06/2025 Active Potassium Chloride ER 10 MEQ Take 1 tabl et by mouth once daily; Duration: 90 days Active Albuterol Sulfate HFA 108 (90 Base) MCG/ACT 1 puff as needed Inhalation every 4 hrs prn 07/29/2024 Active Baclofen 5 MG 1 tablet as needed Orally Once a day; Duration: 30 day(s) Not-Taking Immunizations Vaccine Route Administration Date Status Comme [...] W/U Status Risk Notes Problem Essential hypertension (62210317) Essential hypertension (I10) Active confirmed Problem Morbid obesity (725363034) Morbid obesity (E66.01) Active confirmed Problem Dyspepsia (194853148) Dyspepsia (K30) Active co nfirmed Problem Degeneration of lumbar intervertebral disc (80970416) Degenerative disc disease, lumbar (M51.36) Active confirmed Problem Palpitations (99675066) Heart palpitations (R00.2) Active confirmed Problem Recurrent falls (099753310) Falls frequently (R29.6) Active confirmed Problem Hypomagnesemia (600883568) Hypomagnesemia (E83.42) Active confirmed Problem Chronic pain (73429292) Other chronic pain (G89.29) Active confirmed Problem Osteoarthritis (802999526) Unspecified osteoarthritis, unspecified site (M19.90) Active confirmed Problem Sciatica (88043053) Lumbago with sciatica, left side (M54.42) Active confirmed Problem Onychomycosis (270050646) Onychomycosis (B35.1) Active confirmed Problem Shoulder joint pain (969513857) Pain in left shoulder (M25.512) Active confirmed Problem Chronic pain (90543410) Other chronic pain (G89.29) Active confirmed Problem Pain of left knee joint (finding) (306733027403314) Pain in left knee (M25.562) Active confirmed Problem Gastroesophageal reflux disease (disorder) (678500843) Chronic GERD (K21.9) Active confirmed Problem Obstructive sleep apnea syndrome (17875163) JOSE (obstructive sleep apnea) (G47.33) Active confirmed Problem Ectopic atrial beats (265628370) Ectopic atrial beats (I49.1) Active confirmed Problem Body mass index 40+ - morbidly obese (655682229) BMI 40.0-44.9, adult (Z68.41) Active confirmed Problem Acquired trigger finger (8992999) Trigger finger of right thumb (M65.311) Active confirmed Problem Raised antinuclear antibody (786379119) VALENTINA positive (R76.8) Active confirmed Problem Artificial knee join t present (633114840983) Status post total left knee replacement (Z96.652) Active confirmed Problem Sleep disturbance (98261800) Sleep disturbance, unspecified (G47.9) Active confirmed Problem Pure hypercholesterolemia (528047475) Pure hypercholesterolemia (E78.00) Active confirmed Problem Contracture of tinoco r fascia (142424825) Dupuytren's contracture (M72.0) Active confirmed Problem Fibrocystic breast changes (84338944) Fibrocystic breast disease (FCBD), unspecified laterality (N60.19) Active confirmed Problem Lumbar facet joint pain (373717888) Lumbar facet joint pain (M54.5) Active confirmed Problem Osteoarthritis of knee (852096339) Arthropathy of left knee (M17.12) Active confirmed Problem Cyst of thyroid (92469216) Thyroid cyst (E04.1) Active confirmed Problem Chondrocalcinosis (042943626) Chondrocalcinosis (M11.20) Active confirmed Problem Lumbar facet joint pain (611723608) Lumbar facet joint pain (M54.59) Active confirmed Problem Injury of rotator cuff (239495864) Injury of left rotator cuff, subsequent encounter (S46.002D) Active confirmed Problem Systemic lupus erythematosus (40091412) Other forms of systemic lupus erythematosus, unspecified organ involvement status (M32.8) Active confirmed Vital Signs Heart Rate 70 /min 06/26/2025 Blood pressure diastolic 80 mm Hg 06/26/2025 Height 65.25 in 06/26/2025 Blood pressure systolic 120 mm Hg 06/26/2025 Weight 244.6 lbs 06/26/2025 BMI 40.39 kg/m2 06/26/2025 Encounters Encounter Location Date Provider Diagnosis [facility] [address] [place] [facility] [address] [place] [id number] 07/29/2024 Lydia Lorelei URI (upper respiratory infection) J06.9 and Leg edema R60.0 [facility] [address] [place] [facility] [address] [place] [id number] 08/05/2024 Lydia Moseley Essential hypertension I10 and Leg edema R60.0 [facility] [address] [facility] [address] [place] [id number] 08/19/2024 Yannick Jain Onychogryposis of to enail L60.2 ; Essential hypertension I10 ; Lumbar facet joint pain M54.59 and Degeneration of intervertebral disc of lumbar region, unspecified whether pain present M51.369 [facility] [address] [place] [address] [place], [place] [id number] 12/02/2024 Yannick Jain Lumbar facet joint p ain M54.59 ; Unspecified osteoarthritis, unspecified site M19.90 ; VALENTINA positive R76.8 ; Pain in left shoulder M25.512 ; Other chronic pain G89.29 ; Essential hypertension I10 ; Morbid obesity E66.01 and BMI 40.0-44.9, adult Z68.41 [facility] [address] [place] [facility] [address] [place], [place] [id number] 02/06/2025 Yannick Jain Essential hypertensi on I10 ; Heart palpitations R00.2 ; Arthropathy of left knee M17.12 ; Hypomagnesemia E83.42 and Pure hypercholesterolemia E78.00 [facility] [address] [place] [address] [place], [place] [id number] 06/26/2025 Yannick Jain Essential hypertensi on I10 ; Heart palpitations R00.2 ; Status post total left knee replacement Z96.652 and Thyroid cyst E04.1 [facility] [address] [place] [address] [place], [place] [id number] 06/27/2025 Yannick Jain Essential hypertensi on I10 and Thyroid cyst E04.1 [facility] [address] [place] [address] [place], [place] [id number] 07/11/2024 Yannick Jain Other chronic pain G 89.29 [facility] [address] [place] [address] [place], [place] [id number] 10/14/2024 Yannick Jain [facility] [address] [place] [address] [place] [id number] 12/06/2024 [facility] [address] [place] [address] [place] [id number] 12/06/2024 Yannick Jain [facility] [address] [place] [id number] 12/31/2024 Yannick Jain [facility] [address] [place] [id number] 01/20/2025 Yannick Jain Other chronic pain G 89.29 [facility] [address] [place] [id number] 02/17/2025 Yannick Jain Screening for breast cancer Z12.39 and Screening for colon cancer Z12.11 [facility] [address] [place] [id number] 04/22/2025 Yannick Jain [facility] [address] [place] [id number] 04/26/2025 Boris [place]endleton Other chronic pain G 89.29 [facility] [address] [place] [id number] 08/22/2024 Yannick Jain Rhinitis, unspecifie d type J31.0 [facility] [address] [place] [id number] 09/06/2024 Yannick Jain Rhinitis, unspecifie d type [...] 04/26/2025 Other chronic pain (ICD-10 - G89.29) 06/26/2025 Essential hypertensi on (ICD-10 - I10) 06/26/2025 Heart palpitations (ICD-10 - R00.2) 06/27/2025 Essential hypertensi on (ICD-10 - I10) 06/27/2025 Thyroid cyst (ICD-10 - E04.1) 06/26/2025 Status post total le ft knee replacement (ICD-10 - Z96.652) 12/02/2024 VALENTINA positive (ICD-10 - R76.8) 02/06/2025 Arthropathy of left knee (ICD-10 - M17.12) 08/19/2024 Lumbar facet joint p ain (ICD-10 - M54.59) 08/19/2024 Degeneration of intervertebral disc of lumbar region, unspecified whether pain present (ICD-10 - M51.369) 02/06/2025 Hypomagnesemia (ICD- 10 - E83.42) 12/02/2024 Pain in left shoulde r (ICD-10 - M25.512) 06/26/2025 Thyroid cyst (ICD-10 - E04.1) 12/02/2024 Other chronic pain (ICD-10 - G89.29) 02/06/2025 Pure hypercholesterolemia (ICD-10 - E78.00) 12/02/2024 Essential hypertensi on (ICD-10 - I10) 12/02/2024 Morbid obesity (ICD- 10 - E66.01) 12/02/2024 BMI 40.0-44.9, adult (ICD-10 - Z68.41) Plan Of Treatment Pending Test Test Name Order Date colonoscopy 02/17/2025 Ultrasound : Thyroid 06/26/2025 P-Basic Metabolic Panel (BMP) 06/27/2025 P-TSH 06/27/2025 Insurance Providers Payer Name Payer Address Payer Phone Subscriber Number Group Number Insured Name Patient Relationship to Insured Coverage Start Date Coverage End Date MEDICARE PART B [address] [address] [place] [address] [id number] RADHA MARTINEZ Self - patient is the insured [employer] MED[employer]ARE SUPPLEMENT [address] [address] [place], [place] [id number] RADHA MARTINEZ Self - patient is the [...] 01/12/15 COVID screening: negative 01/15/2020 Colonoscopy [address] [facility] Dr. Gallegos, tubular gabrielle noma 01/16/[address] Reddy Hospitalization History Reason Date(Month/Year) [facility] ER- pain in right hip 12/14/08
--- OUTSIDE RECORDS SUMMARY | 2025-07-03 13:14 | XMS_ITS | Encounter Summary ---
[facility] Address [address] [place] [address] Care Team Providers Care Stone Layout Marker Name Role Phone Dillan Jain MD Primary Care Provider [phone] Encounter Details Date Type Department Care Team (Late st Contact Info) Description 12/05/2024 Results Follow-Up [facility] RHEUMATOLOGY [address] [place] [phone] DO [address] [place] [address] Social History Tobacco Use Types Packs/Day Years [...] Description 12/08/2025 2:45 PM EDT Office Visit [facility] RHE[facility] [address] [phone] DO [address] [phone] documented as of this encounter Visit Diagnoses Not on filedocumented in this encounter Care Teams Stone Layout Marker Relationship Specialty Start Date End Date Dillan Jain MD [address] [place] [facility] [address] [facility] [address] [place] [address] PCP - General Family Medicine 05/28/24 documented as of this encounter
--- OUTSIDE RECORDS SUMMARY | 2025-07-03 13:15 | XMS_ITS | Clinical Summary ---
Author Organization [employer] ([place], [place], [place], [place], [place]) Address [address] [place] [address] Care Team Providers Care Valve Setter Name Role Phone Dillan Jain MD Primary Care Provider [phone] Allergies Active Allergy Reactions Criticality Noted Date [...] Completed 12/26/2018, Medical Devices Implanted Type Area Ese Teacher Device Identifier Shelf Expiration Date Model / Serial / Lot Cement Bone Smplx Hv 6194-1-001 - [id number] Implanted:Qt y: 2 on 03/31/2025 by Carly Bob MD at [facility] IMPLANTS Left: Knee IDRIS:[employer] [id number] 07/20/2026 6194-1-00 1 / / [id number] F Articular Surface 11mm 8-11 Lt 49-6122-863- 11 - [id number] Implanted:Qt y: 1 on 03/31/2025 by Carly Bob MD at [facility] TOTAL JOINT CONSTRUCT Left: Knee TORREY:TORREY US [id number] 07/07/2029 42-5121-0 08 [id number] Psn Fem Narr Tony Sz 10 L 67-0771-612- 01 - [id number] Implanted:Qt y: 1 on 03/31/2025 by Carly Bob MD at [facility] TOTAL JOINT CONSTRUCT Left: Knee TORREY:TORREY US [id number] 11/26/2034 42-5020-0 68 [id number] Psn Tibia 0 Keel L Sz E 03-1320-425- 01 - [id number] Implanted:Qt y: 1 on 03/31/2025 by Carly Bob MD at [facility] TOTAL JOINT CONSTRUCT Left: Knee TORREY:TORREY US 01/08/2035 42-5360-0 71 [id number] Insurance [address] [place] [address] MEDICARE PART A B Advance Directives For more information, please contact: [phone] * Full Code (Latest Code Status on File) Date Activated Date Inactivated Comments 03/31/2025 9:47 AM 04/01/2025 3:21 PM * Full Code Date Activated Date Inactivated Comments 03/31/2025 6:12 AM 03/31/2025 9:47 AM Care Teams Valve Setter Relationship Specialty Start Date End Date Dillan Jain MD [address] [place] [address] PCP - General Family Medicine 03/24/25
--- OUTSIDE RECORDS SUMMARY | 2025-07-03 13:15 | XMS_ITS | Referral Summary ---
Author Organization [employer] ([place], [place], [place], [place], [place]) Address [address] [place] [address] Care Team Providers Care Rubber Mill Operator Name Role Phone Dillan Jain MD Primary Care Provider [phone] Allergies Active Allergy Reactions Criticality Noted Date [...] on file Medical Devices Implanted Type Area Director Of Outside Sales Device Identifier Shelf Expiration Date Model / Serial / Lot Cement Bone Smplx 6194-1-001 - [id number] Implanted:Qt y: 2 on 03/31/2025 by Carly Bob MD at [facility] IMPLANTS Left: Knee IDRIS:[employer] [id number] 07/20/2026 6194-1-00 1 / [id number] F Articular Surface 11mm 8-11 Lt 79-9256-791- 11 - [id number] Implanted:Qt y: 1 on 03/31/2025 by Carly Bob MD at [facility] TOTAL JOINT CONSTRUCT Left: Knee TORREY:TORREY [id number] 07/07/2029 42-5121-0 03-31 [id number] Psn Fem Narr Tony Sz 10 L 39-5681-030- 01 - [id number] Implanted:Qt y: 1 on 03/31/2025 by Carly Bob MD at [facility] TOTAL JOINT CONSTRUCT Left: Knee TORREY:TORREY [id number] 11/26/2034 42-5020-0 68- [id number] Psn Tibia 0 Keel L Sz E 55-5638-901- 01 - [id number] Implanted:Qt y: 1 on 03/31/2025 by Carly Bob MD at [facility] TOTAL JOINT CONSTRUCT Left: Knee TORREY:TORREY 01/08/2035 42-5360-0 71- [id number] Insurance MEDICARE PART A B [facility] Advance Directives For more information, please contact: [phone] * Full Code (Latest Code Status on File) Date Activated Date Inactivated Comments 03/31/2025 9:47 AM 04/01/2025 3:21 PM * Full Code Date Activated Date Inactivated Comments 03/31/2025 6:12 AM 03/31/2025 9:47 AM Care Teams Rubber Mill Operator Relationship Specialty Start Date End Date Dillan Jain MD [address] [place] [address] PCP - General Family Medicine 03/24/25
--- OUTSIDE RECORDS SUMMARY | 2025-07-03 13:15 | XMS_ITS | Continuity of Care Document ---
Author Organization [facility], ORTHOPEDICS [address] Address [address] [place] [address] Care Team Providers Care Mud Mill Tender Name Role Phone ABDI GUTIÉRREZ Primary Care Provider [phone] ABDI GUTIÉRREZ Referring Provider [phone] KYREE BUTLER Orthopedic Surgeon [phone] Assessment No assessment recorded. Plan of Treatment Reminders Order Date Submit Date Provider Last Modified By Organization Details Last Modified Time Details Appointments RECHECK 2024 03:00P M SHANNAN VEE PA-C Not available Not available Not available Lab None recorded. Referral None recorded. Procedures None recorded. Surgeries None recorded. Imaging None recorded. Medication Orders meloxicam 7.5 mg tablet 2024 025 [facility] 591, [address], [address], 05/14/2025 15:17:59 Patient TargetsNo targets recorded. Patient InstructionsNo instructions recorded. Reason for Referral None Reported. Results Created Date Observation Date Name Description Value Unit Range Abnormal Flag Note LastModifiedBy Organization Detail LastModifiedTime 04/22/2004/22/2025 [facility] [address] [place] [address] [phone] Patien t Name: JAREK johnson : [address] [...] Audelia cheung MD on 04/22/20 10:[address] Radiology [address] [place], [address], 04/22/2025 13:01:57 05/20/2005/14/2025 XR, knee, 3 view [facility] [address] [place] [address] [phone] Patien t Name: JAREK johnson : [address] Patien t 53 [facility] Provid er: SHANNAN VEE EXAM DATE: [...] By: Roldan Orona MD on 8:[email or web address] Radiology [address] [place], [address], 05/21/2025 08:20:59 Result Notes None recorded. 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 Procedures Surgical History Date Name Laterality Status Provider Name and Address Organization Details Recorded Time 5 total replacement of left knee joint completed Cathy Gill [facility] 04/22/2025 08:14:17 PCM Visit completed Tamiko Johnson [facility] 04/14/2025 14:21:58 total replacement of right hip joint completed Cathyrhett Gill [facility] 03/04/2025 15:24:13 Imaging Results None recorded. Procedure Notes None recorded. Medical Equipment None Reported. Allergies Allergen ID Allergen Name Allergen Category Reaction Reaction Severity Criticality Documentation Date Start Date Code Code System Note Provider Name and Address Organization Details Recorded Time 616144 codeine medicatio n Not available Not available Not available 05/06/2024 2670 RxNorm Tamra Domonique [facility] 4 09:35:48 452490 naproxen medicatio n Not available Not available Not available 05/06/2024 7258 RxNorm Tamra Domonique [facility] 4 09:35:54 936154 acetamino phen medicatio n Not available Not available Not available 07/03/20252023 161 RxNorm unrec ogniz ed react ion (text : Provi Welch d, code: 52783 0000) (from [facility]) Not Available [employer] - prod 5 08:54:22 005477 oxycodone hydrochlo ride medicatio n Not available Not available Not available 07/03/20252023 77133 RxNorm unrec ogniz ed react ion (text : Other (See Comme nts), code: 80755 003) (from [facility]) Not Available herman - [employer] - prod 5 08:54:58 178038 ketorolac medicatio n Not available Not available Not available 07/03/2025 19594 RxNorm Not Available herman [employer] - [facility] 5 08:55:28 309426 tramadol medicatio n Not available Not available Not available 07/03/20252021 23845 RxNorm Not Available herman nPario [employer] - [facility] 5 08:55:28 983606 naproxen sodium medicatio n Not available Not available Not available 07/03/20252024 46529 2 RxNorm Stoma ch cramp s Not Available [employer] Service - prod 5 08:55:45 645518 oxycodone medicatio n Not available Not available Not available 07/03/20252024 7804 RxNorm Stoma ch cramp s Not Available herman [employer] - [facility] 5 08:55:45 Medications Name Sig Start Date [...] Updated DateTime 05/14/2025 162.56 cm 43.4 kg/m2 672490.87 g Slava Blakely [facility] 05/14/2025 14:38:34 Social History Question Answer Notes LastModified by [employer] Details LastModified Time Tobacco Smoking Status [facility] 03/04/2025 15:19:07 What Was The Date Of Your Most Recent Tobacco Screening? 03/04/2025 Information not available 03/04/2025 Has Tobacco Cessation Counseling Been Provided? No [email or web address] Information not available 03/04/2025 Sex: Female Functional Status Question Answer Note LastModified by [employer] Details LastModified Time Do you use any illicit or recreational drugs? No Information not available 03/04/2025 Do you or have you ever used any other forms of tobacco or nicotine? No [email or web address] Information not available 03/04/2025 What is your level of alcohol consumption? None [email or web address] Information not available 03/04/2025 Mental Status None recorded. Family History Nothing Reported. Medical History Condition Response Allergies/Hayfever N Other N Gout Y Anxiety/Depression N Thyroid Disease N Heart Conditions N Kidney Stones N Hernia N Migraines N COPD N Glaucoma N Pneumonia N Skin Problems N Immune System Disorder N Anesthesia Complications N Heart Attack ([place]) N Mental Illness N Neurological Problems N [...] Time zoster recombinant 9 completed Cathy panchal, [facility] 03/04/2025 15:18:20 zoster recombinant 9 [facility] 03/04/2025 15:18:20 Influenza, high-dose, quadrivalent, PF 2 completed [facility] 03/04/2025 15:18:20 Tdap 9 completed [facility] 03/04/2025 15:18:20 Pneumococcal conjugate PCV 13 9 completed Cathy Gill [facility] 03/04/2025 15:18:20 Influenza, high-dose, trivalent, PF 9 completed Cathy Gill [facility] 03/04/2025 15:18:20 Influenza, high-dose, trivalent, PF 0 completed Cathy Gill [facility] 03/04/2025 15:18:20 Influenza, high-dose, trivalent, PF 8 completed Cathy Gill [facility] 03/04/2025 15:18:20 Past Encounters Encounter ID Performer Location Encounter Start Date Encounter Closed Date Diagnosis/Indication Diagnosis SNOMED-CT Code Diagnosis ICD10 Code Diagnosis IMO Codes Diagnosis Note [id number] [facility]HA[facility] [address] [place] [address] 04/22/2025 09:41:13 04/22/2025 10:44:35 [id number] LIANG MICHAELI [facility] [address] [place] [address] 05/14/2025 13:52:09 05/14/2025 15:21:36 History of left total knee replacement [id number] 421327 Z96.652 50013329 Pt is here today for 6 week [...] begin working on strengthen ing the leg; wewendi ed the importance of continuing their HEP [...] ID Guarantor Name 05/14/2025 1 [place] Sanjana Pierson [id number] Sanjana Pierson 05/14/2025 2 [employer]IG[employer] SUPPLEMENTAL - [employer] HE[employer] AND LIFE INSURANCE (MEDICARE SUPPLEMENT) Sanjana Pierson [id number] Sanjana Pierson Notes Date Note Type [...] of pain medicine. SHANNAN VEE PA-C [address] [place], [address], [facility] - [facility] 05/14/2025 15:22:49 OBGyn Episode No OBEpisode recorded.
== END 2025-07-03 23:59 | disposition home or self-care (01) ==
LOC: RAD 13:10
PROVIDERS: PCP Family Medicine; Visit Provider Family Medicine
DX: E04.1 Nontoxic single thyroid nodule (principal)
CPT/HCPCS: 76536

== ENCOUNTER 2025-07-16 07:39 | Outpatient (CLI) | payer MEDICARE, SELFPAY ==
--- OUTSIDE RECORDS SUMMARY | 2024-05-20 05:30 | XMS_ITS ---
Author Organization [facility] Address [address] [facility] [address] [facility] [address] [place] [id number] Care Team Providers Care Clinical Staff Anesthesiologist Name Role Phone Yannick Jain Primary Care Provider [phone] Allergies Allergen (clinical drug ingredient) Drug/Non Drug [...] day; Duration: 90 days Active Vital Signs Blood pressure systolic 122 mm Hg 05/20/20 24 Blood pressure diastolic 70 mm Hg 024 Heart Rate 62 /min 05/20/2024 Height 65.25 in 05/20/2024 Weight 255.6 lbs 05/20/2024 BMI 42.20 kg/m2 05/20/2024 Encounters Encounter Location Date Provider Diagnosis [facility] [address] [facility] [address] [place] [phone] 05/20/2024 Yannick Jain Essential hypertensi on I10 [...] * MICHELLE TJOB:[birth year] (70 yo F)Acc No.[id number]:05/20/2024 Progress Notes Patient: RADHA CAM Provider: Yannick Jain M.D. :1955 A ge:69 Y S ex:Female Date:05/20/2024 Address:[address] [facility] [address] [id number] Subjective: * Chief Complaints: * 1 . [...] 01/12/15, COVID screening: negative 01/15/2020, Colonoscopy at [facility] Dr. 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 [...] affeine: yes, frequency:occasional. Marital Status: Single. Occupation: [employer]. Past smoking status: no. Alcohol: No. * [...] * Images: Billing Information: * Visit Code: 35735 Office Visit, Est Pt., Level 3. * Procedure Codes: * Electronic signature of Yannick Jain MD on 07/16/2025 at 07:42 AM EST Sign off status: Pending * Provider: Yannick Jain M.D. Date: 0 05/20/2024 Generated for Nile lipscomb/Adithya/[place] on: 09/15/2024 07:42 AM EST History and Physical Notes * Examination [...]
--- OUTSIDE RECORDS SUMMARY | 2024-07-29 10:15 | XMS_ITS ---
Author Organization [facility] Address [address] [place], [place] [address] Care Team Providers Care Railroad Accountant Name Role Phone Yannick Jain Primary Care Provider [phone] Lydia Moseley Unavailable [phone] Allergies Allergen (clinical drug ingredient) Drug/Non Drug [...] daily Active Vital Signs Blood pressure systolic 110 mm Hg 07/29/20 24 Blood pressure diastolic 68 mm Hg 024 Heart Rate 71 /min 07/29/2024 Height 65.25 in 07/29/2024 Weight 265.8 lbs 07/29/2024 BMI 43.89 kg/m2 07/29/2024 Encounters Encounter Location Date Provider Diagnosis [facility] [address] [place] [id number] 07/29/2024 Lydia Moseley URI (upper respirato ry [...] * JAREK MARTINEZKEVONOB:[birth year] (70 yo F)Acc No.[id number]:07/29/2024 Progress Notes Patient: RADHA CAM Provider: ADELA Damon :1955 A ge:69 Y S ex:Female Date:07/29/2024 [address], [place], [id number] Pcp:Yannick Jain Subjective: * Chief Complaints: * [...] 01/12/15, COVID screening: negative 01/15/2020, Colonoscopy at [facility] Dr. Gallegos, tubular adenoma 01/16/2020, Epidural [...] affeine: yes, frequency:occasional. Marital Status: Single. Occupation: [employer]. Past smoking status: no. Alcohol: No. * [...] > Provider reviewed results while patient in office.Moseley,Lydia 07/29/2024 7:44:09 PM > ?Lab: Rapid Strep- Inhouse (Collection Date & Time - 07/29/2024)?neg* Value Reference Range s trep test neg * Esther Arias 07/29/2024 4:19: 50 PM > Provider reviewed results while patient in office.Dominga Moseleyharine 07/29/2024 7:44:22 PM > * Procedure Codes: 8 7804 Flu Test- Nasal Swab, Modifiers: QW , 91147 STREP A ASSAY W/OPTIC, Modifiers: QW , 13375 COVID TEST IN HOUSE, Modifiers: QW * Follow Up: 1 Week with labs * Images: Billing Information: * Visit Code: 57203 Office Visit, Est Pt., Level 3. * Procedure Codes: 45685 Flu Test- Nasal Swab. Modifiers: QW 06026 STREP A ASSAY W/OPTIC. Modifiers: QW 26566 COVID TEST IN HOUSE. Modifiers: QW * Electronic signature of Aydee garcia ADAMARIS Moseley on 07/16/2025 at 07:43 AM EST Sign off status: Pending * Provider: ADELA Damon Date: 09/29/2023 Generated for Nile lipscomb/Adithya/[place] on: 09/15/2024 07:43 AM EST History and Physical Notes * HPI [...]
--- OUTSIDE RECORDS SUMMARY | 2024-08-05 08:30 | XMS_ITS ---
Author Organization [facility] Address [address] [facility] [address] [place] [id number] Care Team Providers Care Weight Shifter Name Role Phone Yannick Jain Primary Care Provider Lydia Moseley Unavailable [phone] Allergies Allergen (clinical drug ingredient) Drug/Non Drug Allergy documented on EMR Reaction Allergy Type Onset Date Status Aleve Unknown Drug Allergy Active acetaminophen / oxycodone Percocet Unknown Drug Allergy Active codeine Codeine sick to stomach Drug Allergy A ctive Results Component Value Reference Range Notes P-Basic Metabolic Panel (BMP ) Reviewed date:08/08/2024 01:31:20 PM Interpretation: Performing Lab: Notes/Report: Test performed by [facility], [facility] [address] [place] [address] , [address], [place] [address] Jung Jc MD, Financial Counselor CLIA: [id number] Sodium 137 135-145 mmol/L Potassium 4.2 3.5-5.3 [...] Status W/U Status Risk Notes Problem Osteoarthritis (914647361) Unspecified osteoarthritis, unspecified site (M19.90) Active confirmed Vital Signs Blood pressure systolic 120 mm Hg 08/05/20 24 Blood pressure diastolic 70 mm Hg 024 Heart Rate 73 /min 08/05/2024 Height 65.25 in 08/05/2024 Weight 258.8 lbs 08/05/2024 BMI 42.73 kg/m2 08/05/2024 Encounters Encounter Location Date Provider Diagnosis [facility] [address] [place] [phone] 08/05/2024 Lydia Moseley Essential hypertensi on I10 [...] * JAREK MARTINEZKEVONOB:[birth year] (70 yo F)Acc No.[id number]:08/05/2024 Patient: RADHA CAM Provider: ADELA Damon :1955 A ge:69 Y S ex:Female Date:08/05/2024 Address:[address] [place], [place] [address] , [place], [id number] Pcp:Yannick Jain Subjective: * Chief Complaints: * [...] COVID screening: negative 01/15/2020, Colonoscopy at [facility] Dr. Gallegos, tubular adenoma 01/16/2020, Epidural [...] affeine: yes, frequency:occasional. Marital Status: Single. Occupation: [employer]. Past smoking status: no. Alcohol: No. * [...] * Images: Billing Information: * Visit Code: 50382 Office Visit, Est Pt., Level 3. * Procedure Codes: G2211 Complex e/m visit add on. * Electronic signature of Aydee bermeojessica Moseley APRN on 07/16/2025 at 07:43 AM EST Sign off status: Pending * Provider: ADELA Damon Date: 10/06/2023 Generated for Nile lipscomb/Adithya/[place] on: 09/15/2024 07:43 [...]
--- OUTSIDE RECORDS SUMMARY | 2024-08-19 08:15 | XMS_ITS ---
Author [facility] Address [address] [place] [phone] Care Team Providers Care Movie Actor Name Role Phone Yannick Jain Primary Care Provider [phone] Allergies Allergen (clinical drug ingredient) Drug/Non Drug [...] Risk Notes Problem Lumbar facet joint pain ([id number]) Lumbar facet joint pain (M54.59) Active confirmed Vital Signs Blood pressure systolic 120 mm Hg 08/19/20 24 Blood pressure diastolic 72 mm Hg 024 Heart Rate 62 /min 08/19/2024 Height 65.25 in 08/19/2024 Weight 262.4 lbs 08/19/2024 BMI 43.33 kg/m2 08/19/2024 Encounters Encounter Location Date Provider Diagnosis [facility] [address] [facility] [address] [place] [phone] 08/19/2024 Yannick Jain Onychogryposis of toenail L60.2 [...] * JAREK MARTINEZINEDOB:[birth year] (70 yo F)Acc No.[id number]:08/19/2024 Progress Notes Patient: RADHA CAM Provider: Yannick Jain M.D. :1955 A ge:69 Y S ex:Female Date:08/19/2024 Address:[address] [place], [place] [address] [id number] Subjective: * Chief Complaints: * 1 . [...] 01/12/15, COVID screening: negative 01/15/2020, Colonoscopy at [facility] Dr. 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 [...] affeine: yes, frequency:occasional. Marital Status: Single. Occupation: [employer]. Past smoking status: no. Alcohol: No. * [...] * Images: Billing Information: * Visit Code: 30846 Office Visit, Est Pt., Level 3. * Procedure Codes: G2211 Complex e/m visit add on. 3074F SYST BP LT 130 MM HG. 3078F DIAST BP < 80 MM HG. * Electronic signature of Yannick Jain MD on 07/16/2025 at 07:42 AM EST Sign off status: Pending * Provider: Yannick Jain M.D. Date: Generated for Nile lipscomb/Adithya/eTransmitting on: 09/15/2024 07:42 AM EST History and [...] Not es 08/19/2024 Yannick Jain , onychogryp osis
--- OUTSIDE RECORDS SUMMARY | 2024-12-02 09:15 | XMS_ITS ---
Author Organization [facility] Address [address] [facility] [address] [place] [phone] Care Team Providers Care School Inspector Name Role Phone Yannick Jain Primary Care [...] AM Interpretation:alk phos 142 Performing Lab: Notes/Report: Test performed by [facility] [employer] [address] [place] [address] , [address], [place] [address] Jung Jc MD, Petrol Tanker Driver CLIA: [id number] Sodium 138 135-145 mmol/L Potassium 4.4 3.5-5.3 [...] W/U Status Risk Notes Problem Morbid obesity (824317707) Morbid obesity (E66.01) Active confirmed Problem Body mass index 40+ - morbidly obese (007518241) BMI 40.0-44.9, adult (Z68.41) Active confirmed Vital Signs Blood pressure systolic 124 mm Hg 12/03/19 25 Blood pressure diastolic 80 mm Hg 025 Heart Rate 70 /min 12/02/2024 Height 65.25 in 12/02/2024 Weight 259.4 lbs 12/02/2024 BMI 42.83 kg/m2 12/02/2024 Encounters Encounter Location Date Provider Diagnosis [facility] [address] [facility] [address] [facility] [address] [place] [phone] 12/02/2024 Yannick Jain Lumbar facet joint p [...] * TJ MARTINEZOB:[birth year] (70 yo F)Acc No.[id number]:12/02/2024 Progress Notes Patient: RADHA CAM Provider: Yannick Jain M.D. :1955 A ge:69 Y S ex:Female Date:12/02/2024 Address:[address] [place], [place] [address] [address] [id number] Subjective: * Chief Complaints: * 1 . [...] 01/12/15, COVID screening: negative 01/15/2020, Colonoscopy at [facility] Dr. Gallegos, tubular adenoma 01/16/2020, Epidural [...] affeine: yes, frequency:occasional. Marital Status: Single. Occupation: [employer]. Past smoking status: no. Alcohol: No. * [...] orbid obesity - E66.01 8 . B [place] 40.0-44.9, adult - Z68.41 Plan: * Treatment: [...] * Images: Billing Information: * Visit Code: 99091 Office Visit, Est Pt., Level 4. * Procedure Codes: G2211 Complex e/m visit add on. 3074F SYST BP LT 130 MM HG. 3079F DIAST BP 80-89 MM HG. * Electronic signature of Yannick Jain MD on 07/16/2025 at 07:44 AM EST Sign off status: Pending * Provider: Yannick Jain M.D. Date: 0 12/02/2024 Generated for Aldeni deisi/Adithya/eTransmitting on: 1 09/15/2024 07:44 AM EST History and Physical Notes * [...]
--- OUTSIDE RECORDS SUMMARY | 2025-01-03 09:15 | XMS_ITS ---
Author Organization [facility] Address [address] [facility] [address] [place] [id number] Care Team Providers Care Channel Director Name Role Phone Yannick Jain Primary Care Provider Boris Aguilar [phone] Allergies Allergen (clinical drug ingredient) Drug/Non Drug Allergy documented on EMR Reaction Allergy Type Onset Date Status Aleve Unknown Drug Allergy Active acetaminophen / oxycodone Percocet Unknown Drug Allergy Active codeine Codeine sick to stomach Drug Allergy A ctive REASON FOR VISIT F/U from [facility] ER Encounters Encounter Location Date Provider Diagnosis [place] [address] [facility] [address] [place] [id number] 01/03/2025 Boris Aguilar Plan Of Treatment No Information Progress Notes * JAREK MARTINEZKEVONOB:[birth year] (70 yo F)Acc No.[id number]:01/03/2025 Progress Notes Patient: RADHA CAM Provider: Aditi Aguilar M.D. :1955 A ge:69 Y S ex:Female Date:01/03/2025 Address:[address] [facility] [address] [id number] Pcp:Yannick Jain Subjective: * Chief Complaints: * 1 . F/U from [facility] ER. * ROS: D ERMATOLOGY: no R [...] 01/12/15, COVID screening: negative 01/15/2020, Colonoscopy at [facility] Dr. Gallegos, tubular adenoma 01/16/2020, Epidural [...] affeine: yes, frequency:occasional. Marital Status: Single. Occupation: [employer]. Past smoking status: no. Alcohol: No. * Allergies: A leve, Percocet, Codeine: sick to stomach. Objective: * Vitals: Assessment: Plan: * Treatment: * Images: Billing Information: * Visit Code: * Procedure Codes: * Electronic signature of Chayo Aguilar MD on 07/16/2025 at 07:44 AM EST Sign off status: Pending * Provider: Aditi Aguilar M.D. Date: 0 01/03/2025 Generated for Nile lipscomb/Adithya/[place] on: 09/15/2024 07:44 AM EST
--- OUTSIDE RECORDS SUMMARY | 2025-02-06 10:30 | XMS_ITS ---
Author Organization [facility] Address [address] [facility] [address] [place] [phone] Care Team Providers Care Manager Urgent Care Name Role Phone Yannick Jain Primary Care Provider [phone] Allergies Allergen (clinical drug ingredient) Drug/Non Drug Allergy documented on EMR Reaction Allergy Type Onset Date Status Aleve Unknown Drug Allergy Active acetaminophen / oxycodone Percocet Unknown Drug Allergy Active codeine Codeine sick to stomach Drug Allergy A ctive Results Component Value Reference Range Notes P-Comprehensive Metabolic Pa alysha (CMP) Reviewed date:02/18/2025 01:22:40 PM Interpretation:satisfactory Performing Lab: Notes/Report: Test performed by [facility], [address] , [address], [place] [address] Jung Jc MD, On Site Property Manager CLIA: [id number] Sodium 136 135-145 mmol/L Potassium 4.5 3.5-5.3 mmol/L Chloride 100 97-108 mmol/L CO2 24 22-32 mmol/L Glucose 90 65-99 mg/dL BUN 19 8-23 mg/dL Creatinine 0.85 0.50-1.00 mg/dL Calcium 9.8 8.6-10.4 mg/dL eGFR by Creatinine 73 >59 mL/min/1.73m2 Protein 7.6 6.0-8.3 g/dL Albumin 4.1 3.5-5.3 g/dL Alkaline Phosphatase 149 35-121 IU/L ALT (SGPT) 16 <5-47 IU/L AST (SGOT) 19 <5-40 IU/L Bilirubin, Total 0.4 <0.2-1.2 mg/dL A/G Ratio 1.2 1.1-2.5 P-Magnesium Reviewed date:02/18/2025 01:22:40 PM Interpretation:Normal Performing Lab: Notes/Report: Test performed by [facility] [address] [place] [address] , [address], [place] [address] Jung Jc MD, On Site Property Manager CLIA: [id number] Magnesium 1.7 1.6-2.4 mg/dL Reason For Referral Reason DJD knee, left. Dr. Flores Diagnosis 1 Arthropathy of left knee (M17.12) Referral Organization [facility] Referring Provider First Name Yannick Mota Referring Provider Last Name Cristobal Referring Provider Speciality Family Pra ctice General Notes Delnaey Castro 2024 09:01:40 AM > faxed to [facility] Referral Priority Routine REASON FOR VISIT 3 month f/u, Needs mammogram Medications Medication SIG (Take, Route, Frequency, Duration) Notes Start Date End Date Status Montelukast Sodium 10 MG 1 tab(s) orally once a day; Duration: 90 days 05/27/2017 Active Metoprolol Succinate ER 50 MG 1 tab(s) orally once a day Active NexIUM 24HR 20 MG 1 cap(s) orally once a day (in the morning) Active Albuterol Sulfate HFA 108 (90 Base) MCG/ACT 1 puff as needed Inhalation every 4 hrs prn 07/29/2024 Active Atorvastatin Calcium 40 MG 1 tab(s) oral ly once a day Active CoQ-10 200 MG as directed Orally 02/06/2025 Active Aspirin Adult Low Dose 81 MG 1 tab(s) or ally once a day Active Losartan Potassium 50 MG 1 tablet Orally Once a day; Duration: 30 day(s) Active Hydroxychloroquine Sulfate 200 MG 1 tab twice daily Active Allopurinol 100 MG Take 1 tablet by mouth once daily; Duration: 90 Active traMADol HCl 50 MG 1 tablet as needed Orally three times a day as needed 01/21/2025 Active Triamterene-HCTZ 37.5-25 MG Take 1 table t by mouth once daily; Duration: 90 Active Baclofen 5 MG 1 tablet as needed Orally Once a day; Duration: 30 day(s) Not-Taking Potassium Chloride ER 10 MEQ Take 1 tabl et by mouth once daily; Duration: 90 days Active Spironolactone 25 MG Take 1 tablet by mouth once daily; Duration: 90 Active Primidone 50 MG Take 1 tablet by mouth twice daily; Duration: 90 Active Problems Problem Type SNOMED Code ICD Code Onset Dates Problem Status W/U Status Risk Notes Problem Osteoarthritis of knee (244825540) Arthropathy of left knee (M17.12) Active confirmed Problem Hypomagnesemia (149761352) Hypomagnesemia (E83.42) Active confirmed Vital Signs Blood pressure systolic 120 mm Hg 02/07/20 25 Blood pressure diastolic 70 mm Hg 025 Heart Rate 67 /min 02/06/2025 Height 65.25 in 02/06/2025 Weight 256.6 lbs 02/06/2025 BMI 42.37 kg/m2 02/06/2025 Encounters Encounter Location Date Provider Diagnosis [facility] [address] [phone] 02/06/2025 Yannick Jain Essential hypertensi on I10 ; Heart palpitations R00.2 ; Arthropathy of left knee M17.12 ; Hypomagnesemia E83.42 and Pure hypercholesterolemia E78.00 Assessments Encounter Date Diagnosis (ICD Code) Assessment Notes Treatment Notes Treatment Clinical Notes Section Notes 02/06/2025 Essential hypertensi on (ICD-10 - I10) 02/06/2025 Heart palpitations (ICD-10 - R00.2) 02/06/2025 Arthropathy of left knee (ICD-10 - M17.12) 02/06/2025 Hypomagnesemia (ICD- 10 - E83.42) 02/06/2025 Pure hypercholesterolemia (ICD-10 - E78.00) Plan Of Treatment Medication Medication Name Sig Start Date Stop Date Notes CoQ-10 200 MG as directed Orally 02/06/2025 Gabapentin 600 MG 1 tablet Orally Three times a day 2024 Referrals Referral Date Details 02/06/2025 02/06/2025, DJD knee , left. Dr. Flores Next Appt Details Follow Up: 3 Months, Reason: Progress Notes * TJ MARTINEZOB:[birth year] (70 yo F)Acc No.[id number]:02/06/2025 Progress Notes Patient: RADHA CAM Provider: Yannick Jain M.D. :1955 A ge:70 Y S ex:Female Date:02/06/2025 Address:[address] [place] Subjective: * Chief Complaints: * 1 . 3 month f/u. 2. Needs mammogram. * HPI: H PI: 70 year old female presents with c/o Here for follow up on:?ER visit. Pt states she went to the ER on December 07 with bad vertigo. Had CT scan and Lamont maneuver. Rx Meclizine. Sxs persited for a month. Pt states she is doing better, but it took about a month for it to resolve after a repeat Lamont maneuver.. K nee/Tabor: The pt states she is having pain in the left knee that is worse with flexing. c/o knee pain l eft side. D ermatology: toenail tested negative for fungus at podietry. * ROS: D ERMATOLOGY: no R margareth. [...] COVID screening: negative 01/15/2020, Colonoscopy at [facility] Dr. Gallegos, tubular adenoma 01/16/2020, Epidural [...] affeine: yes, frequency:occasional. Marital Status: Single. Occupation: [employer]. Past smoking status: no. Alcohol: No. * [...] tab(s) orally once a day , Taking Albuterol Sulfate HFA 108 (90 Base) MCG/ACT Aerosol Solution 1 puff as needed Inhalation every 4 hrs prn , Taking Metoprolol Succinate ER 50 MG Tablet Extended Release 24 Hour 1 tab(s) orally once a day , Taking Montelukast Sodium 10 MG Tablet 1 tab(s) orally once a day , Taking Gabapentin 600 MG Tablet 1 tablet Orally Three times a day , Taking Primidone 50 MG Tablet Take 1 tablet by mouth twice daily , Taking Spironolactone 25 MG Tablet Take 1 tablet by mouth once daily , Taking Allopurinol 100 MG Tablet Take 1 tablet by mouth once daily , Taking Triamterene-HCTZ 37.5- 25 MG Tablet Take 1 tablet by mouth once daily , Taking traMADol HCl 50 MG Tablet 1 tablet as needed Orally three times a day as needed , Taking Potassium Chloride ER 10 MEQ Tablet Extended Release Take 1 tablet by mouth once daily , Not-Taking Baclofen 5 MG Tablet 1 tablet as needed Orally Once a day , Medication List reviewed and reconciled with the patient * Allergies: A leve, Percocet, Codeine: sick to stomach. Objective: * Vitals: W t: 256.6, Temp: 97.6, BP: 120/70, HR: 67, Nurse: DAKOTAH, Ht: 65.25, BMI:42.37. * Examination: G eneral Examination: General Appearance: N AD, note weight. H EENT: u nremarkable. O ral cavity: n o lesions, mucosa moist and WNL, no erythema. N marisol: s upple, no lymphadenopathy. C hest: n ormal shape and expansion. H eart: R SR. L ungs: c lear to auscultation. A bdomen: obese, soft and nontender. N eurologic Exam: I ntact, gait normal. S kin: n ormal, no rash. P eripheral pulses: n ormal .?Extremities: n o leg edema, osteoarthritic changes of the knees. . ? Assessment: * Assessment: 1. E ssential hypertension - I10 (Primary) 2 . H eart palpitations - R00.2? 3. A rthropathy of left knee - M17.12 4 . H ypomagnesemia - E83.42 5 . P ure hypercholesterolemia - E78.00 Plan: * Treatment: Value Reference Range A /G Ratio 1.2 1.1-2.5 - * A lbumin 4.1 3.5-5.3 - g/dL * A lkaline Phosphatase 149 H 35-121 - IU/L * A LT (SGPT) 16 <5-47 - IU/L * A ST (SGOT) 19 <5-40 - IU/L * B ilirubin, Total 0.4 <0.2-1.2 - mg/dL * B UN 19 8-23 - mg/dL * C alcium 9.8 8.6-10.4 - mg/dL * C hloride 100 97-108 - mmol/L * C O2 24 22-32 - mmol/L * C reatinine 0.85 0.50-1.00 - mg/dL * G lucose 90 65-99 - mg/dL * P otassium 4.5 3.5-5.3 - mmol/L * S odium 136 135-145 - mmol/L * P rotein 7.6 6.0-8.3 - g/dL * e GFR by Creatinine 73 >59 - mL/min/1.73m2 * Tamiko Truong 02/18/2025 01: 22:10 PM EDT > Patient informed of normal results. 2.?Arthropathy of left knee? Stop Gabapentin Tablet, 600 MG, 1 tablet, Orally, Three times a day.?&# 160;? Referral To: ?Reason:DJD knee, left. Dr. Flores 3.?Hypomagnesemia?LAB: P-Magnesium (Collection Date & Time - 02/07/2025 08:36 AM)?Normal* Value Reference Range M agnesium 1.7 1.6-2.4 - mg/dL * Tamiko Truong 02/18/2025 01: 22:10 PM EDT > Patient informed of normal results. 4.?Pure hypercholesterolemia? Start CoQ-10 Capsule, 200 MG, as directed, Orally.?? * Procedure Codes: G 2211 Complex e/m visit add on, 1036F TOBACCO NON-USER, G8950 PREHTN/HTN BP DOC INDCD F/U DOC, G8752 MOST RECENT SYSTOLIC BP < 140MM HG, G8754 MOST RECENT DIASTOLIC BP < 90MM HG * Follow Up: 3 Months * Images: Billing Information: * Visit Code: 09333 Office Visit, Est Pt., Level 4. * Procedure Codes: G2211 Complex e/m visit add on. 1036F TOBACCO NON-USER. G8950 PREHTN/HTN BP DOC INDCD F/U DOC. G8752 MOST RECENT SYSTOLIC BP < 140MM HG. G8754 MOST RECENT DIASTOLIC BP < 90MM HG. * Electronic signature of Yannick Jain MD on 07/16/2025 at 07:42 AM EST Sign off status: Pending * Provider: Yannick Jain M.D. Date: 0 02/06/2025 Generated for Nile lipscomb/Adithya/eTransmitting on: 1 09/15/2024 07:42 AM EST History and Physical Notes * HPI (History of Present Illness) Category Sub-Category Detail Notes Category Not es Dermatology toenail tested negative for fungus at podietry. Knee/Tabor knee pain left side HPI Here for follow up on: ER visit. Pt states she went to the ER on December 07 with bad vertigo. Had CT scan and Lamont maneuver. Rx Meclizine. Sxs persited for a month. Pt states she is doing better, but it took about a month for it to resolve after a repeat Lamont maneuver. Examination Category Sub-Category Detail Notes Category Not es General Examination HEENT: unremarkable Heart: RSR Lungs: clear to auscultatio n Abdomen: obese, soft and nont ella Extremities: no leg edema, osteoa rthritic changes of the knees. General Appearance: NAD, note weight Skin: normal, no rash Neurologic Exam: Intact, gait normal Neck: supple, no lymphaden opathy Oral cavity: no lesions, mucosa m oist and WNL, no erythema Peripheral pulses: normal Chest: normal shape and exp ansion Consultation Request Notes Referral Date Referring Provider Referred Provider Not es 02/06/2025 Yannick Jain DJD knee, left. Dr. Flores
--- OUTSIDE RECORDS SUMMARY | 2025-06-05 14:45 | XMS_ITS | Encounter Summary ---
[facility] Address [address] [place] [address] Care Team Providers Care Religious Education Teacher Name Role Phone Dillan Jain MD Primary Care Provider [phone] Reason for Visit * Reason Comments Lupus Follow up Osteoarthritis Follow up Encounter Details Date Type Department Care Team (Latest Contact Info) Description 06/05/2025 3:45 PM EDT Office Visit [facility] [address] [phone] DO [address] [phone] Systemic lupus erythematosus, unspecified SLE type, unspecified [...] sent through Care Everywhere. * Hydroxychloroquine Tablets (Austrian) documented in this encounter Progress Notes * Derrick Way DO - 06/05/2025 3:45 PM EDTAssociated Problem(s): SLE (systemic lupus erythematosus) * 2008: VALENTINA 1:80 speckled * 10/25/22: VALENTINA positive, DS DNA 26 (0-4), Longo negative, SSA and SSB Normal, COMMUNITY SUPPORT WORKER normal, chromatin normal, Renetta 1 normal, Centromere normal, SCL 70 normal, Ribosomal P Normal, ESR 46 (0-30) * Medications/treatments/interventions tried include: Tylenol, Advil, meloxicam, she saw Jayson Pack MD (Investment Banking Analyst) in 2008, She has seen an orthopaedic [...] (0-4), Longo negative, SSA and SSB Normal, COMMUNITY SUPPORT WORKER normal, chromatin normal, Renetta 1 normal, Centromere normal, SCL 70 normal, Ribosomal P Normal, ESR 46 (0-30) * Medications/treatments/interventions tried include: Tylenol, Advil, meloxicam, she saw Jayson Pack MD (Investment Banking Analyst) in 2008, She has seen an orthopaedic [...] 6 months (around 12/04/2025). Derrick Way DO [facility] [place] documented in this encounter Plan of Treatment Upcoming Encounters Date Type Department Care Team (Late st Contact Info) Description 12/08/2025 2:45 PM EDT Office Visit [facility] [address] [phone] [address] DO [address] [address] Scheduled Orders Name Type Priority Associated Diagnoses [...] DO LAB BLOOD ORDERABLES F inal Result [facility] * C4+C3 (06/13/2025) Blood Derrick Way DO LAB BLOOD ORDERABLES F inal Result [facility] * UA / M With / Rflx Culture([facility] ONLY) - Urine, Clean Catch (06/12/2025) Urine Urine specimen obtained by clean catch procedure / Unknown [employer] DO URINE ORDERABLES Final Result Performing Organization Address City/[facility]/ZIP Co de Phone Number [facility] * CK (06/11/2025) Blood [employer] DO LAB BLOOD ORDERABLES F inal Result Performing Organization Address [facility] Co de Phone Number [facility] * CBC Auto Differential (06/11/2025) Blood [employer] DO LAB BLOOD ORDERABLES F inal Result Performing Organization Address [facility] Co de Phone Number [facility] documented in this encounter Visit Diagnoses Diagnosis Systemic lupus erythematosus, unspecified SLE type, unspecified organ involvement status- Primary High risk medication use Primary osteoarthritis involving multiple joints Other fatigue documented in this encounter Care Teams Religious Education Teacher Relationship Specialty Start Date End Date Dillan Jain MD [facility] MD [facility] [address] [facility] [address] [place] [address] PCP - General Family Medicine 05/28/24 documented as of this encounter
--- OUTSIDE RECORDS SUMMARY | 2025-06-26 10:15 | XMS_ITS ---
Author Organization [facility] Address [address] [facility] [address] [place] [id number] Care Team Providers Care Ostomy Nurse Name Role Phone Yannick Jain Primary Care Provider [phone] Allergies Allergen (clinical drug ingredient) Drug/Non Drug Allergy documented on EMR Reaction Allergy Type Onset Date Status Aleve Unknown Drug Allergy Active acetaminophen / oxycodone Percocet Unknown Drug Allergy Active codeine Codeine sick to stomach Drug Allergy A ctive Results Component Value Reference Range Notes P-Basic Metabolic Panel (BMP ) Reviewed date:07/01/2025 11:57:48 AM Interpretation:Normal Performing Lab: Notes/Report: Test performed by [facility] [address] [place], [place] [address] [place] , [place] [address] Jung Jc MD, Bag Loader CLIA: [id number] Sodium 134 135-145 mmol/L Potassium 4.1 3.5-5.3 mmol/L Chloride 99 97-108 mmol/L CO2 23 20-32 mmol/L Glucose 96 65-99 mg/dL BUN 20 8-23 mg/dL Creatinine 0.82 0.50-1.00 mg/dL Calcium 9.5 8.6-10.4 mg/dL eGFR by Creatinine 76 >59 mL/min/1.73m2 P-TSH Reviewed date:07/01/2025 11:57:48 AM Interpretation:Normal Performing Lab: Notes/Report: Test performed by [facility] [address] [place], [place] [address] [place] , [address], [place] [address] Jung Jc MD, Bag Loader CLIA: [id number] TSH 2.32 0.43-5.25 mU/L Ultrasound : Thyroid Reviewed date:07/07/2025 08:26:55 AM Interpretation:Abnormal Performing Lab: Notes/Report: Abnormal REASON FOR VISIT check up, Needs colon cancer screening & flu vaccine Medications Medication SIG (Take, Route, Frequency, Duration) Notes Start Date End Date Status Triamterene-HCTZ 37.5-25 MG Take 1 table t by mouth once daily; Duration: 30 Active Allopurinol 100 MG Take 1 tablet by mouth once daily; Duration: 90 Active Spironolactone 25 MG Take 1 tablet by mouth once daily; Duration: 90 Active traMADol HCl 50 MG 1 tablet as needed Orally three times a day as needed 04/26/2025 Active Baclofen 5 MG 1 tablet as needed Orally Once a day; Duration: 30 day(s) Not-Taking Primidone 50 MG Take 1 tablet by mouth twice daily; Duration: 90 Active Montelukast Sodium 10 MG 1 tab(s) orally once a day; Duration: 90 days 05/27/2017 Active Metoprolol Succinate ER 50 MG 1 tab(s) orally once a day Active CoQ-10 200 MG as directed Orally 02/06/2025 Active Potassium Chloride ER 10 MEQ Take [...] Once a day; Duration: 30 day(s) Active Albuterol Sulfate HFA 108 (90 Base) MCG/ACT 1 puff as needed Inhalation every 4 hrs prn 07/29/2024 Active Hydroxychloroquine Sulfate 200 MG 1 tab twice daily Active Meloxicam 7.5 MG 1 tablet Orally Once a day Active Gabapentin 600 MG 1 tablet Orally Once a day Active Problems Problem Type SNOMED Code ICD Code Onset Dates Problem Status W/U Status Risk Notes Problem Artificial knee joint present (355879209754) Status post total left knee replacement (Z96.652) Active confirmed Problem Cyst of thyroid (24933748) Thyroid cyst (E04.1) Active confirmed Problem Hypertensive heart failure (88211208) Hypertensive heart disease with heart failure (I11.0) Active confirmed Vital Signs Blood pressure systolic 120 mm Hg 06/26/20 25 Blood pressure diastolic 80 mm Hg 025 Heart Rate 70 /min 06/26/2025 Height 65.25 in 06/26/2025 Weight 244.6 lbs 06/26/2025 BMI 40.39 kg/m2 06/26/2025 Encounters Encounter Location Date Provider Diagnosis [facility] [address] [facility] [address] [place] [id number] 06/26/2025 Yannick Jain Essential hypertensi on I10 ; Heart palpitations R00.2 ; Status post total left knee replacement Z96.652 ; Thyroid cyst E04.1 and Hypertensive heart disease with heart failure I11.0 Assessments Encounter Date Diagnosis (ICD Code) Assessment Notes Treatment Notes Treatment Clinical Notes Section Notes 06/26/2025 Essential hypertension (ICD-10 - I10) 06/26/2025 Heart palpitations (ICD-10 - R00.2) 06/26/2025 Status post total left knee replacement (ICD-10 - Z96.652) 06/26/2025 Thyroid cyst (ICD-10 - E04.1) 06/26/2025 Hypertensive heart disease with heart failure (ICD-10 - I11.0) Plan Of Treatment Next Appt Details Follow Up: 3 M, Reason: Progress Notes * JAREK MARTINEZKEVONOB:[birth year] (70 yo F)Acc No.[id number]:06/26/2025 Progress Notes Patient: RADHA CAM Provider: Yannick Jain M.D. :1955 A ge:70 Y S ex:Female Date:06/26/2025 Address:[address] [place] [address] [address] [id number] Subjective: * Chief Complaints: * 1 . Check up. 2. Needs colon cancer screening & flu vaccine. * HPI: C ardiology: The pt is here for a check-up on Hypertension. Pt states she had left knee replace on March [address] Bob. See pt docs. Pt states she is doing very well. Pt is not fasting. Denies : Chest Pain. D enies : Short of Breath. D enies : Dizziness. D enies : Palpitations. * ROS: C ONSTITUTIONAL: Positive for A tremaine physician seen since last visit? Yes, Change in medication since last visit? No, Are you taking antibiotics? No, Are you taking steroids? No. D ERMATOLOGY: no R margareth. n o [...] 01/12/15, COVID screening: negative 01/15/2020, Colonoscopy at [facility] Dr. 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 [...] affeine: yes, frequency:occasional. Marital Status: Single. Occupation: [employer]. Past smoking status: no. Alcohol: No. * Medications: T aking Gabapentin 600 MG Tablet 1 tablet Orally Once a day , Taking Meloxicam 7.5 MG Tablet 1 tablet Orally Once a day , Taking Hydroxychloroquine [...] tablet by mouth once daily , Taking CoQ-10 200 MG Capsule as directed Orally , Taking Primidone 50 MG Tablet Take 1 tablet by mouth twice daily , Taking Allopurinol 100 MG Tablet Take 1 tablet by mouth once daily , Taking traMADol HCl 50 MG Tablet 1 tablet as needed Orally three times a day as needed , Taking Spironolactone 25 MG Tablet Take 1 tablet by mouth once daily , Taking Triamterene-HCTZ 37.5-25 MG Tablet Take 1 tablet by mouth once daily , Not- Taking Baclofen 5 MG Tablet 1 tablet as needed Orally Once a day * Allergies: A leve, Percocet, Codeine: sick to stomach. Objective: * Vitals: W t: 244.6, Temp: 98.3, BP: 120/80, HR: 70, Nurse: DAKOTAH, Ht: 65.25, BMI:40.39. * Examination: G eneral Examination: General Appearance: N AD, note weight. H EENT: u nremarkable. O ral cavity: n o lesions, mucosa moist and WNL, no erythema. N marisol: s upple, no lymphadenopathy. Fullness left thyroid. See CTA report (4cm cyst). C hest: normal shape and expansion. H eart: R SR. L ungs: c lear to auscultation. A bdomen: obese, soft and nontender. N eurologic Exam: I ntact, gait normal. S kin:?normal, no rash. P eripheral pulses: n ormal . E xtremities: l eft leg with surgical scar, healing well.no leg edema, osteoarthritic changes of the knees. . Assessment: * Assessment: 1. E ssential hypertension - I10 (Primary) 2 . H eart palpitations - R00.2? 3. S tatus post total left knee replacement - Z96.652 4 . T hyroid cyst - E04.1 5 . H ypertensive heart disease with heart failure - I11.0? Plan: * Treatment: Value Reference Range B UN 20 8-23 - mg/dL * C alcium 9.5 8.6-10.4 - mg/dL * C hloride 99 97-108 - mmol/L * C O2 23 20-32 - mmol/L * C reatinine 0.82 0.50-1.00 - mg/dL * G lucose 96 65-99 - mg/dL * P otassium 4.1 3.5-5.3 - mmol/L * S odium 134 L 135-145 - mmol/L * e GFR by Creatinine 76 >59 - mL/min/1.73m2 * Anabel Brown 07/01/2025 08:37:33 AM EST > left a THUAN Dionne Tamiko L 07/01/2025 11:57:33 AM EST > Patient informed of normal results. 2.?Thyroid cyst?LAB: P-TSH (Collection Date & Time - 06/27/2025 09:30 AM)?Normal* Value Reference Range T SH 2.32 0.43-5.25 - mU/L * Anabel Brown 07/01/2025 08:37:33 AM EST > left a THUAN DionneFabie Carroll 07/01/2025 11:57:33 AM EST > Patient informed of normal results. ?Imaging: Ultrasound : Thyroid (Performed Date - 07/03/2025)?Abnormal* Delaney Castro 06/27/2025 08:4 3:50 AM EST > faxed to [facility] Zhane Franco 07/07/2025 08:26:48 AM EST > see phone encounter * Procedure Codes: G 2211 Complex e/m visit add on, 1036F TOBACCO NON-USER, G8950 PREHTN/HTN BP DOC INDCD F/U DOC, G8752 MOST RECENT SYSTOLIC BP < 140MM HG, G8754 MOST RECENT DIASTOLIC BP < 90MM HG, 3074F SYST BP LT 130 MM HG, 3079F DIAST BP 80-89 MM HG * Follow Up: 3 M * Images: Billing Information: * Visit Code: 87277 Office Visit, Est Pt., Level 4. * Procedure Codes: G2211 Complex e/m visit add on. 1036F TOBACCO NON-USER. G8950 PREHTN/HTN BP DOC INDCD F/U DOC. G8752 MOST RECENT SYSTOLIC BP < 140MM HG. G8754 MOST RECENT DIASTOLIC BP < 90MM HG. 3074F SYST BP LT 130 MM HG. 3079F DIAST BP 80-89 MM HG. * Electronic signature of Yannick Jain MD on 07/16/2025 at 07:43 AM EST Sign off status: Pending * Provider: Yannick Jain M.D. Date: 08/26/2024 Generated for Printi ng/Facosmeg/eTransmitting on: 09/15/2024 07:43 AM EST History and Physical Notes * HPI (History of Present Illness) Category Sub-Category Detail Notes Category Not es Cardiology Short of Breath Chest Pain Palpitations Dizziness Examination Category Sub-Category Detail Notes Category Not es General Examination HEENT: unremarkable Heart: RSR Lungs: clear to auscultatio n Abdomen: obese, soft and nont ella Extremities: left leg with surgic al scar, healing well.no leg edema, osteoarthritic changes of the knees. General Appearance: NAD, note weight Skin: normal, no rash Neurologic Exam: Intact, gait normal Neck: supple, no lymphaden opathy. Fullness left thyroid. See CTA report (4cm cyst) Oral cavity: no lesions, mucosa m oist and WNL, no erythema Peripheral pulses: normal Chest: normal shape and exp ansion
--- OUTSIDE RECORDS SUMMARY | 2025-06-27 05:00 | XMS_ITS ---
Author Organization [facility] Address [address] [place] [phone] Care Team Providers Care Maintenance Chief Name Role Phone Yannick Jain Primary Care Provider REASON FOR VISIT blood work Encounters Encounter Location Date Provider Diagnosis [facility] [address] [facility] [address] [place] [phone] 06/27/2025 Yannick Jain Essential hypertensi on I10 and Thyroid cyst E04.1 Assessments Encounter Date Diagnosis (ICD Code) Assessment Notes Treatment Notes Treatment Clinical Notes Section Notes 06/27/2025 Essential hypertension (ICD-10 - I10) 06/27/2025 Thyroid cyst (ICD-10 - E04.1) Plan Of Treatment Pending Test Test Name Order Date P-Basic Metabolic Panel (BMP) 06/27/2025 P-TSH 06/27/2025 Progress Notes * TJ MARTINEZOB:[birth year] (70 yo F)Acc No.[id number]:06/27/2025 Patient: RADHA CAM Provider: Yannick Jain M.D. :1955 A ge:70 Y S ex:Female Date:06/27/2025 Address:[address] [facility] [address] [id number] Subjective: * Chief Complaints: * 1 . Blood work. * Medical History: Objective: * Vitals: Assessment: * Assessment: 1. E ssential hypertension - I10 (Primary) 2 . T hyroid cyst - E04.1 ? Plan: * Treatment: 2. T hyroid cyst L AB: P-TSH * Procedure Codes: 3 6415 VENIPUNCT, ROUTINE* * Images: Billing Information: * Visit Code: * Procedure Codes: 92816 VENIPUNCT, ROUTINE*. * Electronic signature of Yannick Jain MD on 07/16/2025 at 07:42 AM EST Sign off status: Pending * Provider: Yannick Jain M.D. Date: 08/27/2024 Generated for Nile lipscomb/Adithya/Mariaelenaitting on: 09/15/2024 07:42 AM EST
--- OUTSIDE RECORDS SUMMARY | 2025-07-16 07:42 | XMS_ITS | Continuity of Care Document ---
Author Organization [facility], ORTHOPEDICS [address] [place] [address] Care Team Providers Care Electronic Organ Technician Name Role Phone ABDI GUTIÉRREZ Primary Care Provider ABDI GUTIÉRREZ Referring Provider [phone] KYREE BUTLER Orthopedic Surgeon Assessment Encounter Date Assessment Date Assessment LastModified [...] week post op follow [place] with radi[place]. [place] [address] Not available 04/22/2025 10:46:41 Plan of Treatment [...] Detail LastModifiedTime 04/22/2004/22/2025 XR, knee, 3 view [facility] [address] [place] [address] Patien t Name: JAREK johnson : [address] Patikyra johnson 53 Orderi [facility] er: SHANNAN VEE EXAM DATE: 2024 EXAM: [...] Audelia cheung MD on 04/22/20 10:[address] Radiology [address] [place] [address], [address], 04/22/2025 13:01:57 05/20/20 25 05/14/2025 XR, knee, 3 view [facility] [address] [facility] [place] [address] Patikyra t Name: JAREK johnson : [address] Jacob[address] johnson 53 Ordershayla ng Provid er: SHANNAN VEE EXAM DATE: [...] Roldan Orona MD on 025 8:[id number] Radiology [address] [place], [address], 05/21/2025 08:20:59 07/15/20 25 07/14/2025 XR, joint , multi ple, 1 view [facility] [address] [facility] [place] [address] Patikyra t Name: JAREK johnson : [address] Jacob[address] johnson 53 Ordershayla ng Provid er: SHANNAN VEE EXAM DATE: 2024 EXAM: XR LONG LEG LEFT/ JOINT SURVEY COMPAR PATRICIA: 5. HISTOR Y: Follow -up of prior surger y. FINDIN GS: There is a left total knee arthro plasty in place. There is no eviden ce of loosen ing or compli cation . The mechan ical axis of the left knee is normal . No fractu re is identi fied. There are mild degene rative change s in the left hip and minima l degene rative change s in the ankle. IMPRES GREG: 1. There is a left knee arthro plasty in place withou t eviden ce of compli cation . Interp reted By: Tito avery MD Electr onical ly Signed By: Tito avery MD on 2024 10:16 AM INTERFACE [facility]iology [address] [place], [address], 07/15/2025 10:21:40 Result Notes Documentation Provider Name and Address Organization Details Recorded Time Xr, Knee, 3 View : [facility] [address] [place] [address] Patient Name: SANJANA PIERSON Patient : 1955 [...] By: Santos Salmon MD NAN VEE PA-C [address] [place] [address], [address], [facility] 04/22/2025 13:01:57 Problems Name Problem SNOMED Code Status Onset Date Resolution Date Notes Provider Name and Address Organization Details Recorded Time 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 Procedures Surgical History Date Name Laterality Status Provider Name and Address Organization Details Recorded Time 5 total replacement of left knee joint completed Cathy Gill [facility] 04/22/2025 08:14:17 PCM Visit completed Tamiko Johnson [facility] 04/14/2025 14:21:58 total replacement of right hip joint completed Cathy [facility] 03/04/2025 15:24:13 Imaging Results None recorded. Procedure Notes None recorded. Medical Equipment None Reported. Allergies Allergen ID Allergen Name Allergen Category Reaction Reaction Severity Criticality Documentation Date Start Date Code Code System Note Provider Name and Address Organization Details Recorded Time 872283 codeine medicatio n Not available Not available Not available 05/06/2024 2670 RxNorm Tamra Domonique [facility] 4 09:35:48 497004 naproxen medicatio n Not available Not available Not available 05/06/2024 7258 RxNorm Tamra Domonique [facility] 4 09:35:54 525744 acetamino phen medicatio n Not available Not available Not available 07/03/20252023 161 RxNorm unrec ogniz ed react ion (text : Provi howard Revrich w Neede d, code: 43061 0000) (from [facility]) Not Available herman - [employer] Data Service - prod 5 08:54:22 144609 oxycodone hydrochlo ride medicatio n Not available Not available Not available 07/03/20252023 75403 RxNorm unrec ogniz ed react ion (text : Other (See Comme nts), code: 62631 003) (from [facility]) Not Available her[employer] External Data Service - prod 5 08:54:58 040357 ketorolac medicatio n Not available Not available Not available 07/03/2025 85758 RxNorm Not Available herman - External Data [employer] - prod 5 08:55:28 708814 tramadol medicatio n Not available Not available Not available 07/03/20252021 28381 RxNorm Not Available [facility] [employer] - [facility] 5 08:55:28 387309 naproxen sodium medicatio n Not available Not available Not available 07/03/20252024 17308 2 RxNorm Stoma ch cramp s Not Available [facility] External Data Service - [facility] 5 08:55:45 370356 oxycodone medicatio n Not available Not available Not available 07/03/20252024 7804 RxNorm Stoma ch cramp s Not Available [facility] [employer] - [facility] 5 08:55:45 283646 acetamino phen / oxycodone medicatio n Not available Not available Not available 07/14/2025 20823 3 RxNorm Not Available [facility] [employer] - [facility] 5 07:09:13 Medications Name Sig Start Date Stop Date [...] Updated DateTime 04/22/2025 162.56 cm 43.4 kg/m2 240342.87 g Justine Hugh [facility] 04/22/2025 09:47:34 Social History Question Answer Notes LastModified by Organizat ion Details LastModified Time Tobacco Smoking Status Never [facility]25 15:19:07 What Was The Date Of Your Most Recent Tobacco Screening? 03/04/2025 [email or web address] Information not available 03/04/2025 Has Tobacco Cessation Counseling Been Provided? No [email or web address] Information not available 03/04/2025 Sex: Female Functional Status Question Answer Note LastModified by Organizat ion Details LastModified Time Do you use any illicit or recreational drugs? No [email or web address] Information not available 03/04/2025 Do you or have you ever used any other forms of tobacco or nicotine? No [email or web address] Information not available 03/04/2025 What is your level of alcohol consumption? None [email or web address] Information not available 03/04/2025 Mental Status None recorded. Family History Nothing Reported. Medical History Condition Response Gout Y Other N Kidney Stones N COPD N Pneumonia N Arthritis N Blood Clot N Cancer N Stroke N Kidney Disease N Heart Conditions N Migraines N Skin Problems N Rheumatic Fever N Bleeding Disorder N Tuberculosis N Genetic Disorder N AIDS/HIV N Asthma Y Included as Review of Systems N Anxiety/Depression N Thyroid Disease N Hernia N Glaucoma N Anesthesia Complications N Blood Thinners N Alcohol Overuse/Alcohol Abuse N High Cholesterol Y Liver Disease N Allergies/Hayfever N Immune System Disorder N Heart Attack ([place]) N Mental Illness N Neurological Problems N Diabetes N Seizures/Epilepsy N Sleep Apnea N Hypertension Y Osteoporosis N Gynecological HistoryNo gynecological history recorded. Obstetrics History GPAL:G 0 P 0 0 0 0 Immunizations Vaccine Type Date Status Note Provider Nam e and Address Organization Details Recorded Time zoster recombinant 9 [facility]04[facility]2025 15:18:20 zoster recombinant 9 completed Cathy Gill null, [facility] 03/04/2025 15:18:20 Influenza, high-dose, quadrivalent, PF 2 completed Cathy Scaleson null, [facility] 03/04/2025 15:18:20 Tdap 9 completed Cathy Scaleson null, [facility] 03/04/2025 15:18:20 Pneumococcal conjugate PCV 13 9 completed Cathy Scaleson null, [facility] 03/04/2025 15:18:20 Influenza, high-dose, trivalent, PF 9 completed Cathy Scaleson null, [facility] 03/04/2025 15:18:20 Influenza, high-dose, trivalent, PF 0 completed Cathy Gill null, [facility] 03/04/2025 15:18:20 Influenza, high-dose, trivalent, PF 8 completed Cathy Gill null, [facility] 03/04/2025 15:18:20 Past Encounters Encounter ID Performer Location Encounter Start Date Encounter Closed Date Diagnosis/Indication Diagnosis SNOMED-CT Code Diagnosis ICD10 Code Diagnosis IMO Codes Diagnosis Note [id number] KYREE Rain MD [facility] [address] [place] [address] 03/24/2025 14:15:04 04/15/2025 10:24:56 Osteoarthritis of left knee joint 6692978559 73710 M17.12 [id number] Sanjana was seen by Dr Chip rain where surgical plan was discussed and finalized for left total knee arthroplas ty on 03/31/25. [id number] KYREE Rain MD SURGERY SCHEDULE [address] [place] [address] 04/03/2025 14:43:47 04/11/2025 13:30:41 [id number] SHANNAN VEE PA-C [place]ED[facility] [place] [address] [place] [address] 04/22/2025 09:41:13 04/22/2025 10:44:35 Health Concerns Section Related Observation LastModified by Organization Detai ls LastModified Time None Recorded Concern Status LastModified by Organization Details LastModified Time None Recorded Payers Encounter Date Sequence Insurance Name Policy Number Policy Olfton Covered Member ID Lofton Member ID Guarantor Name 04/22/2025 1 [place] Sanjana Pierson [id number] Sanjana Pierson 04/22/2025 2 CIGNA SUPPLEMENTAL - [employer] HE[employer] AND LIFE INSURANCE (MEDICARE SUPPLEMENT) Sanjana Pierson [id number] Sanjana Pierson Notes Date Note Type [...] of pain medicine. SHANNAN VEE PA-C [address] [place], [address], [facility] 04/22/2025 10:47:51 OBGyn Episode No OBEpisode recorded.
--- OUTSIDE RECORDS SUMMARY | 2025-07-16 07:42 | XMS_ITS ---
Author Organization Unknown ENCOUNTERS Encounter Performer Location Date Diagnosis Diagnosis Status Emergency [facility] [place] [address] [place] [address] [id number] RACHNA Pre Admit [facility] [place] [place] [address] [id number] Emergency [place] [address] [place] [address] [id number] RACHNA *Note: Encounters from your own facility or health system may be excluded. Allergies, Adverse Reactions, Alerts Allergen Type Severity Identification Date codeine drug allergy 3 [id number] naproxen drug allergy 0 63897584 Medications Name Date Quantity Days Supplied [facility] Number
--- OUTSIDE RECORDS SUMMARY | 2025-07-16 07:43 | XMS_ITS | Encounter Summary ---
[facility] Address [address] [place] [address] Care Team Providers Care Bag Printer Name Role Phone Dillan Jain MD Primary Care Provider [phone] Encounter Details Date Type Department Care Team (Late st Contact Info) Description 12/05/2024 Results Follow-Up [facility] [address] [place] [address] DO [address] [place] [address] Social History Tobacco Use Types Packs/Day Years [...] Description 12/08/2025 2:45 PM EDT Office Visit [facility] [address] [address] DO [address] [id number] documented as of this encounter Visit Diagnoses Not on filedocumented in this encounter Care Teams Bag Printer Relationship Specialty Start Date End Date Dillan Jain MD [address] [facility] [address] [place] [address] PCP - General Family Medicine 05/28/24 documented as of this encounter
--- OUTSIDE RECORDS SUMMARY | 2025-07-16 07:43 | XMS_ITS | Clinical Summary ---
[facility] Address [address] [place] [address] Care Team Providers Care Silk Finisher Name Role Phone Dillan Jain MD Primary Care Provider [phone] Allergies Active Allergy Reactions Criticality Noted Date [...] 1 tablet by mouth once daily Active triamterene-hyd rochlorothiazid e (MAXZIDE-25) 37.5-25 MG per tablet TAKE 1 TABLET BY MOUTH ONCE DAILY FOR 90 DAYS Active Baclofen (LIORESAL) 5 MG tablet Take 1 tablet by mouth Daily. 4 Active hydroxychloroqu ine (PLAQUENIL) 200 MG tablet [...] mouth 3 (Three) Times a Day. Active Active Problems Problem Noted Date Diagnosed [...] (0-4), Longo negative, SSA and SSB Normal, MACHINE FARMWORKER normal, chromatin normal, Renetta 1 normal, Centromere normal, SCL 70 normal, Ribosomal P Normal, ESR 46 (0-30) * Medications/treatments/interventions tried include: Tylenol, Advil, meloxicam, she saw Jayson Pack MD ([facility]) in 2008, She has seen an orthopaedic surgeon, she has done physical therapy, she had hip replacement surgery, she had arthroscopic knee surgery, Percocet (Allergic/intolerant), Aleve (allergic/Intolerant), allopurinol, gabapentin, shoulder injection, she saw a barrel painter, she had back injections, Plaquenil, Tramadol, [...] (0-4), Longo negative, SSA and SSB Normal, MACHINE FARMWORKER normal, chromatin normal, Renetta 1 normal, Centromere normal, SCL 70 normal, Ribosomal P Normal, ESR 46 (0-30) * Medications/treatments/interventions tried include: Tylenol, Advil, meloxicam, she saw Jayson Pack MD ([facility]) in 2008, She has seen an orthopaedic surgeon, she has done physical therapy, she had hip replacement surgery, she had arthroscopic knee surgery, Percocet (Allergic/intolerant), Aleve (allergic/Intolerant), allopurinol, gabapentin, shoulder injection, she saw a barrel painter, she had back injections, Plaquenil, Tramadol, [...] (0-4), Longo negative, SSA and SSB Normal, MACHINE FARMWORKER normal, chromatin normal, Renetta 1 normal, Centromere normal, SCL 70 normal, Ribosomal P Normal, ESR 46 (0-30) * Medications/treatments/interventions tried include: Tylenol, Advil, meloxicam, she saw Jayson Pack MD ([facility]) in 2008, She has seen an orthopaedic surgeon, she has done physical therapy, she had hip replacement surgery, she had arthroscopic knee surgery, Percocet (Allergic/intolerant), Aleve (allergic/Intolerant), allopurinol, gabapentin, shoulder injection, she saw a barrel painter, she had back injections, Plaquenil, Tramadol, [...] Department Care Team Description 06/16/2025 Results Follow-Up [facility] [address] [place] [address] [phone] DO 06/10/2025 Telephone [facility] [address] [place] [phone] DO LAB ORDERS DOES NOT HAVE DR SIGNATURE 06/06/2025 Telephone [facility] [address] [place] [address] [phone] DO 06/05/2025 3:45 PM EDT Office Visit [facility] [address] [place] [phone] DO Systemic lupus erythematosus, unspecified [...] Description 12/08/2025 2:45 PM EDT Office Visit [facility] [address] [phone] DO [address] [phone] Health Maintenance Due Date Last Done Comments [...] Antibody, Double-stranded (06/13/2025 2:57 PM EDT) Blood Derrick Way DO LAB BLOOD ORDERABLES F inal Result [facility] * C4+C3 (06/13/2025) Blood Derrick Way DO LAB BLOOD ORDERABLES F inal Result [facility] * UA / M With / Rflx Culture([facility] ONLY) - Urine, Clean Catch (06/12/2025) Urine Urine specimen obtained by clean catch procedure / Unknown [address]ric[address] DO URINE ORDERABLES Final Result Performing Organization Address City/[facility]/ZIP Co de Phone Number [facility] * CBC Auto Differential (06/11/2025) Blood Derrickeve Lisa [place] DO LAB BLOOD ORDERABLES F inal Result Performing Organization Address [facility] Co de Phone Number [facility] * CK (06/11/2025) Blood Derrickeve Lisa [place] DO LAB BLOOD ORDERABLES F inal Result Performing Organization Address [facility] Co de Phone Number [facility] from Last 3 Months Insurance MEDICARE A & B Member Subscriber Plan / Payer ( fective 2011-Present) Name:Sanjana Pierson Member ID:[id number] Relation to Subscriber:Self Name:Sanjana Pierson Subscriber ID:[id number] Payer ID:[id number] Group ID:Not on file Type:Not on file Address: [facility] [id number] Night Out Care Teams Silk Finisher Relationship Specialty Start Date End Date Dillan Jain MD [address] [facility] [address] [place] [address] PCP - General Family Medicine 05/28/24
--- OUTSIDE RECORDS SUMMARY | 2025-07-16 07:43 | XMS_ITS | Patient Health Record ---
Author Organization [facility] Address [address] [facility] [address] [place] [id number] Care Team Providers Care Experimental Plastics Fabricator Name Role Phone Yannick Jain Primary Care Provider Boris Aguilar Unavailable [phone] Lydia Moseley Unavailable [phone] Allergies Allergen (clinical drug ingredient) Drug/Non Drug Allergy documented on EMR Reaction Allergy Type Onset Date Status Aleve Unknown Drug Allergy Active acetaminophen / oxycodone Percocet Unknown Drug Allergy Active codeine Codeine sick to stomach Drug Allergy A ctive Results Component Value Reference Range Notes P-Comprehensive Metabolic Pa alysha (CMP) Reviewed date:02/18/2025 01:22:40 PM Interpretation:satisfactory Performing Lab: Notes/Report: Test performed by [facility] [employer] [address] [place] [address] , [address], [place] [address] Jung Jc MD, National Sales Consultant CLIA: [id number] Sodium 136 135-145 mmol/L Potassium 4.5 3.5-5.3 [...] Interpretation:Normal Performing Lab: Notes/Report: Test performed by [facility] [employer] , [address], [place] [address] Jung Jc MD, National Sales Consultant CLIA: [id number] Magnesium 1.7 1.6-2.4 mg/dL P-TSH Reviewed date:07/01/2025 11:57:48 AM Interpretation:Normal Performing Lab: Notes/Report: Test performed by [facility] [address] , [address], [place] [address] Jung Jc MD, National Sales Consultant CLIA: [id number] TSH 2.32 0.43-5.25 mU/L P-Basic Metabolic Panel (BMP ) Reviewed date:07/01/2025 11:57:48 AM Interpretation:Normal Performing Lab: Notes/Report: Test performed by [facility] [address] , [address], [place] [address] Jung Jc MD, National Sales Consultant CLIA: [id number] Sodium 134 135-145 mmol/L Potassium 4.1 3.5-5.3 mmol/L Chloride 99 97-108 mmol/L CO2 23 20-32 mmol/L Glucose 96 65-99 mg/dL BUN 20 8-23 mg/dL Creatinine 0.82 0.50-1.00 mg/dL Calcium 9.5 8.6-10.4 mg/dL eGFR by Creatinine 76 >59 mL/min/1.73m2 Ultrasound : Thyroid Reviewed date:07/07/2025 08:26:55 AM Interpretation:Abnormal Performing Lab: Notes/Report: Abnormal P-Comprehensive Metabolic Pa alysha (CMP) Reviewed date:12/06/2024 10:50:40 AM Interpretation:alk phos 142 Performing Lab: Notes/Report: Test performed by [facility] [address] , [address], [place] [address] Jung Jc MD, National Sales Consultant CLIA: [id number] Sodium 138 135-145 mmol/L Potassium 4.4 3.5-5.3 [...] 0.5 <0.2-1.2 mg/dL A/G Ratio 1.1 1.1-2.5 Mammogram Reviewed date:03/13/2025 01:08:18 PM Interpretation:Negative Performing Lab: Notes/Report: Negative result negative P-Basic Metabolic Panel (BMP ) Reviewed date:08/08/2024 01:31:20 PM Interpretation: Performing Lab: Notes/Report: Test performed by [facility] [address] [place] [address] , [address], [place] [address] Jung Jc MD, National Sales Consultant CLIA: [id number] Sodium 137 135-145 mmol/L Potassium 4.2 3.5-5.3 mmol/L Chloride 101 97-108 mmol/L CO2 25 22-32 mmol/L Glucose 100 65-99 mg/dL BUN 18 8-23 mg/dL Creatinine 0.84 0.50-1.00 mg/dL Calcium 9.6 8.6-10.4 mg/dL eGFR by Creatinine 74 >59 mL/min/1.73m2 Influenza Screen (in house) Reviewed date:07/29/2024 07:44:10 PM Interpretation:neg Performing Lab: Notes/Report: neg results neg venous doppler ultrasound le g, lower right Reviewed date:08/05/2024 01:17:08 PM Interpretation: Performing Lab: Notes/Report: Covid test (in house) Reviewed date:07/29/2024 07:43:56 PM Interpretation:neg Performing Lab: Notes/Report: neg Result: neg Rapid Strep- Inhouse Reviewed date:07/29/2024 07:44:38 PM Interpretation:neg Performing Lab: Notes/Report: neg strep test neg Medications Medication SIG (Take, Route, Frequency, Duration) Notes Start Date End Date Status Primidone 50 MG Take 1 tablet by mouth twice daily; Duration: 90 Active Atorvastatin Calcium 40 MG 1 tab(s) [...] 1 tablet Orally Once a day Active Aspirin Adult Low Dose 81 MG [...] Vaccine Route Administration Date Status Comme nts PNEUMOVAX 23 VACCINE IM Intramuscular 10/13/2016 Administered Fluzone High Dose (65yr and older) IM Intramuscular 06/11/2018 Administered Shingrix Unknown 12/26/2018 Administered Shingrix Unknown 10/17/2018 Administered Fluzone High Dose (65yr and older) IM Intramuscular 05/25/2020 Administered Tetanus Tdap-Adacel (over 7yrs) IM Intramuscular 12/24/2018 Administered Prevnar (PCV13) IM Intramuscular 10/15/2018 Administered Fluzone High Dose (65yr and older) IM Intramuscular 08/23/2021 Administered Pt tolerated w ell Fluzone High Dose (65yr and older) IM Intramuscular 04/29/2019 Administered Problems Problem Type SNOMED Code ICD Code Onset Dates Problem Status W/U Status Risk Notes Problem Essential hypertension (19944092) Essential hypertension (I10) Active confirmed Problem Morbid obesity (151701694) Morbid obesity (E66.01) Active confirmed Problem Dyspepsia (164668792) Dyspepsia (K30) Active co nfirmed Problem Degeneration of lumbar intervertebral disc (48726213) Degenerative disc disease, lumbar (M51.36) Active confirmed Problem Palpitations (76591877) Heart palpitations (R00.2) Active confirmed Problem Recurrent falls (254943526) Falls frequently (R29.6) Active confirmed Problem Hypomagnesemia (462284096) Hypomagnesemia (E83.42) Active confirmed Problem Chronic pain (85892999) Other chronic pain (G89.29) Active confirmed Problem Hypertensive heart failure (79112321) Hypertensive heart disease with heart failure (I11.0) Active confirmed Problem Osteoarthritis (675302746) Unspecified osteoarthritis, unspecified site (M19.90) Active confirmed Problem Sciatica (69662530) Lumbago with sciatica, left side (M54.42) Active confirmed Problem Onychomycosis (252773492) Onychomycosis (B35.1) Active confirmed Problem Shoulder joint pain (708411198) Pain in left shoulder (M25.512) Active confirmed Problem Chronic pain (28390392) Other chronic pain (G89.29) Active confirmed Problem Pain of left knee joint (finding) (653697698382948) Pain in left knee (M25.562) Active confirmed Problem Gastroesophageal reflux disease (disorder) (703476901) Chronic GERD (K21.9) Active confirmed Problem Obstructive sleep apnea syndrome (64157377) JOSE (obstructive sleep apnea) (G47.33) Active confirmed Problem Ectopic atrial beats (978878433) Ectopic atrial beats (I49.1) Active confirmed Problem Body mass index 40+ - morbidly obese (369067233) BMI 40.0-44.9, adult (Z68.41) Active confirmed Problem Acquired trigger finger (3668695) Trigger finger of right thumb (M65.311) Active confirmed Problem Raised antinuclear antibody (216920646) VALENTINA positive (R76.8) Active confirmed Problem Artificial knee join t present (131946639103) Status post total left knee replacement (Z96.652) Active confirmed Problem Sleep disturbance (07893638) Sleep disturbance, unspecified (G47.9) Active confirmed Problem Pure hypercholesterolemia (186695925) Pure hypercholesterolemia (E78.00) Active confirmed Problem Contracture of tinoco r fascia (627381163) Dupuytren's contracture (M72.0) Active confirmed Problem Fibrocystic breast changes (81368016) Fibrocystic breast disease (FCBD), unspecified laterality (N60.19) Active confirmed Problem Lumbar facet joint pain (739314774) Lumbar facet joint pain (M54.5) Active confirmed Problem Osteoarthritis of knee (699301340) Arthropathy of left knee (M17.12) Active confirmed Problem Cyst of thyroid (67506049) Thyroid cyst (E04.1) Active confirmed Problem Ultrasound scan abnormal (971514512) Abnormal ultrasound (R93.89) Active confirmed Problem Chondrocalcinosis (760856507) Chondrocalcinosis (M11.20) Active confirmed Problem Lumbar facet joint pain (428248379) Lumbar facet joint pain (M54.59) Active confirmed Problem Injury of rotator cuff (373075097) Injury of left rotator cuff, subsequent encounter (S46.002D) Active confirmed Problem Systemic lupus erythematosus (91644840) Other forms of systemic lupus erythematosus, unspecified organ involvement status (M32.8) Active confirmed Vital Signs Heart Rate 70 /min 06/26/2025 Blood pressure diastolic 80 mm Hg 06/26/2025 Height 65.25 in 06/26/2025 Blood pressure systolic 120 mm Hg 06/26/2025 Weight 244.6 lbs 06/26/2025 BMI 40.39 kg/m2 06/26/2025 Encounters Encounter Location Date Provider Diagnosis [facility] [address] [facility] [address] [place], [place] [address], [place] [id number] 07/29/2024 Lydia Moseley URI (upper respiratory infection) J06.9 and Leg edema R60.0 [facility] [address] [facility] [address] [place] [id number] 08/05/2024 Lydia Moseley Essential hypertension I10 and Leg edema R60.0 [facility] [address] [facility] [address] [place] [id number] 08/19/2024 Yannick Jain Onychogryposis of to enail L60.2 ; Essential hypertension I10 ; Lumbar facet joint pain M54.59 and Degeneration of intervertebral disc of lumbar region, unspecified whether pain present M51.369 [facility] [address] [facility] [address] [place] [id number] 12/02/2024 Yannick Jain Lumbar facet joint p ain M54.59 ; Unspecified osteoarthritis, unspecified site M19.90 ; VALENTINA positive R76.8 ; Pain in left shoulder M25.512 ; Other chronic pain G89.29 ; Essential hypertension I10 ; Morbid obesity E66.01 and BMI 40.0-44.9, adult Z68.41 [facility] [address] [facility] [address] [place] [id number] 02/06/2025 Yannick Jain Essential hypertensi on I10 ; Heart palpitations R00.2 ; Arthropathy of left knee M17.12 ; Hypomagnesemia E83.42 and Pure hypercholesterolemia E78.00 [facility] [address] [facility] [address] [place] [id number] 06/26/2025 Yannick Jain Essential hypertensi on I10 ; Heart palpitations R00.2 ; Status post total left knee replacement Z96.652 ; Thyroid cyst E04.1 and Hypertensive heart disease with heart failure I11.0 [facility] [address] [facility] [address] [place], [place] [id number] 06/27/2025 Yannick Jain Essential hypertensi on I10 and Thyroid cyst E04.1 [facility] [address] [facility] [address] [place] [id number] 10/14/2024 Yannick Jain [facility] [address] [facility] [address] [place], [place] [id number] 12/06/2024 J Nakul Cristobal [facility] [address] [place], [place] [id number] 12/06/2024 Yannick Jain [facility] [address] [place] [id number] 12/31/2024 Yannick Jain [facility] [address] [place], [place] [id number] 01/20/2025 Yannick Jain Other chronic pain G 89.29 [facility] [address] [place], [place] [id number] 02/17/2025 Yannick Jain Screening for breast cancer Z12.39 and Screening for colon cancer Z12.11 [facility] [address] [place], [place] [id number] 04/22/2025 Yannick Jain [facility] [address] [place] [id number] 04/26/2025 Boris Belding Other chronic pain G 89.29 [facility] [address] [place], [place] [id number] 07/07/2025 Yannick Jain [facility] [address] [place] [id number] 08/22/2024 Yannick Jain Rhinitis, unspecifie d type J31.0 [facility] [address] [place], [place] [id number] 09/06/2024 Yannick Jain Rhinitis, unspecifie d type J31.0 Assessments Encounter Date Diagnosis (ICD Code) Assessment Notes Treatment Notes Treatment Clinical Notes Section Notes 07/29/2024 URI (upper respirato ry infection) (ICD-10 - J06.9) fluids, rest, supportive measures for fever/symptom relief 07/29/2024 Leg edema (ICD-10 - R60.0) needs US of right leg; low salt diet 08/05/2024 Essential hypertensi on (ICD-10 - I10) 08/05/2024 Leg edema (ICD-10 - R60.0) will check BMP today; reviewed US records with her 08/19/2024 Onychogryposis of toenail (ICD-10 - L60.2) 08/19/2024 Essential hypertensi on (ICD-10 - I10) 08/22/2024 Rhinitis, unspecifie d type (ICD-10 - J31.0) 09/06/2024 Rhinitis, unspecifie d type (ICD-10 - J31.0) 12/02/2024 Lumbar facet joint p ain (ICD-10 - M54.59) 12/02/2024 Unspecified osteoarthritis, unspecified site (ICD-10 - M19.90) 01/20/2025 Other chronic pain (ICD-10 - G89.29) [...] le ft knee replacement (ICD-10 - Z96.652) 02/06/2025 Arthropathy of left knee (ICD-10 - M17.12) 12/02/2024 VALENTINA positive (ICD-10 - R76.8) 08/19/2024 Lumbar facet joint p ain (ICD-10 - M54.59) 08/19/2024 Degeneration of intervertebral disc of lumbar region, unspecified whether pain present (ICD-10 - M51.369) 12/02/2024 Pain in left shoulde r (ICD-10 - M25.512) 02/06/2025 Hypomagnesemia (ICD- 10 - E83.42) 06/26/2025 Thyroid cyst (ICD-10 - E04.1) 06/26/2025 Hypertensive heart disease with heart failure (ICD-10 - I11.0) 02/06/2025 Pure hypercholesterolemia (ICD-10 - E78.00) 12/02/2024 Other chronic pain (ICD-10 - G89.29) 12/02/2024 Essential hypertensi on (ICD-10 - I10) 12/02/2024 Morbid obesity (ICD- 10 - E66.01) 12/02/2024 BMI 40.0-44.9, adult (ICD-10 - Z68.41) Plan Of Treatment Pending Test Test Name Order Date colonoscopy 02/17/2025 Ultrasound Guided Fine Needle Aspiration : Thyroid 07/09/2025 P-Basic Metabolic Panel (BMP) 06/27/2025 P-TSH 06/27/2025 Insurance Providers Payer Name Payer Address Payer Phone Subscriber Number Group Number Insured Name Patient Relationship to Insured Coverage Start Date Coverage End Date MEDICARE PART B [address] [address] [place] [address] [id number] RADHA MARTINEZ Self - patient is the insured [employer] MEDICARE SUPPLEMENT [address] [address] [place], [place] [id number] RADHA MARTINEZ Self - patient is the insured Medications Administered Medication Instructions Date of Administration Dosage Notes Dexamethasone 07/04/2008 1 mL Dexamethasone 10/11/2007 1 mL Medical (General) History Medical History [...]
--- OUTSIDE RECORDS SUMMARY | 2025-07-16 07:43 | XMS_ITS | Encounter Summary ---
[facility] Address [address] [place] [address] Care Team Providers Care Athletic Scout Name Role Phone Dillan Jain MD Primary Care Provider [phone] Encounter Details Date Type Department Care Team (Late st Contact Info) Description 12/09/2024 Results Follow-Up [facility] [address] [place] [phone] DO [address] [place] [address] Social History Tobacco Use Types Packs/Day Years [...] 12/08/2025 2:45 PM EDT Office Visit [facility] [address] [phone] DO [address] [phone] documented as of this encounter Visit Diagnoses Not on filedocumented in this encounter Care Teams Athletic Scout Relationship Specialty Start Date End Date Dillan Jain MD [address] [place] [facility] [address] [facility] [address] [place] [address] PCP - General Family Medicine 05/28/24 documented as of this encounter
--- OUTSIDE RECORDS SUMMARY | 2025-07-16 07:43 | XMS_ITS | Encounter Summary ---
[facility] [address] [place] [address] Care Team Providers Care Shotblast Equipment Operator Name Role Phone Dillan Jain MD Primary Care Provider [phone] Encounter Details Date Type Department Care Team (Late st Contact Info) Description 12/05/2024 Results Follow-Up [facility] [address] [place] [phone] DO [address] [place] [address] Social History Tobacco Use Types Packs/Day Years [...] Description 12/08/2025 2:45 PM EDT Office Visit [facility] [address] [phone] DO [address] [phone] documented as of this encounter Visit Diagnoses Not on filedocumented in this encounter Care Teams Shotblast Equipment Operator Relationship Specialty Start Date End Date Dillan Jain MD [address] [place] [facility] [address] [facility] [address] [place] [address] PCP - General Family Medicine 05/28/24 documented as of this encounter
--- OUTSIDE RECORDS SUMMARY | 2025-07-16 07:44 | XMS_ITS | Data Portability ---
Author Organization [facility] ANGELCIA BaltazarS ELSIE CLOSED Address [address] [place] [address] Care Team Providers Care Control Clerk [employer] Name Role Phone ABDI GUTIÉRREZ Primary Care Provider [phone] ABDI GUTIÉRREZ Referring Provider [phone] KYREE BUTLER Orthopedic Surgeon Assessment Encounter Date [...] week post op follow up with radiographs. [email or web address] Not available 04/22/2025 10:46:41 Plan of Treatment Reminders Order Date Submit Date Provider Last Modified By Organization Details Last Modified Time Details Appointments None recorded. Lab None recorded. Referral None recorded. Procedures None recorded. Surgeries None recorded. Imaging None recorded. Medication Orders meloxicam 7.5 mg tablet 2024 025 [facility] 591, [address], [address], 15:17:59 Patient TargetsNo targets recorded. Patient InstructionsNo instructions recorded. Reason for Referral None Reported. Results Created Date Observation Date Name Description Value Unit Range Abnormal Flag Note LastModifiedBy Organization Detail LastModifiedTime 03/06/2003/06/2025 PROTH ROMBI N TIME prothrombin time 10.5 secon ds 9.2-11 .0 normal Not Available [facility] [address] [place] [address], [address], 03/06/2025 13:21:19 03/06/2003/06/2025 PROTH ROMBI N TIME [...] NICAL PROST HETIC VALVE S Not Available [facility] [address] [place], [address], 03/06/2025 13:21:19 03/06/20 25 03/06/2025 PTT (APTT ) PTT (APTT) 25.0 secon ds 21.9-2 9.9 normal Not Available [facility] [address] [place] [address], [address], 03/06/2025 13:21:20 03/06/20 25 03/06/2025 COMPL ETE BLOOD COUNT white blood cells 8.6 10*3/ uL 3.8-10 .8 normal Not Available [facility] [address] [place] [address], [address], 03/06/2025 13:26:05 03/06/20 25 03/06/2025 COMPL ETE BLOOD COUNT red blood cells 4.20 10*6/ uL 3.80-5 .20 normal Not Available [facility] [address] [place] [address], [address], 03/06/2025 13:26:05 03/06/20 25 03/06/2025 COMPL ETE BLOOD COUNT hemoglobin 13.0 g/dL 12.0-1 6.0 normal Not Available [facility] [address] [place] [address], [address], 03/06/2025 13:26:05 03/06/20 25 03/06/2025 COMPL ETE BLOOD COUNT hematocrit 38.2 % 35.0-4 7.0 normal Not Available [facility] [address] [place] [address], [address], 03/06/2025 13:26:05 03/06/20 25 03/06/2025 COMPL ETE BLOOD COUNT MCV 91 fL 80-100 normal Not Available [facility] [address] [place] [address], [address], 03/06/2025 13:26:05 03/06/20 25 03/06/2025 COMPL ETE BLOOD COUNT MCH 31 pg 26-35 normal Not Available [facility] [address] [place] [address], [address], 03/06/2025 13:26:05 03/06/20 25 03/06/2025 COMPL ETE BLOOD COUNT MCHC 34 g/dL 32-36 normal Not Available [facility] [address] [place] [address], [address], 03/06/2025 13:26:05 03/06/20 25 03/06/2025 COMPL ETE BLOOD COUNT RDW 14.4 % 11.0-1 5.0 normal Not Available [facility] [address] [place] [address], [address], 03/06/2025 13:26:05 03/06/20 25 03/06/2025 COMPL ETE BLOOD COUNT MPV 8.9 fL 6.2-10 .5 normal Not Available [facility] [address] [place] [address], [address], 03/06/2025 13:26:05 03/06/20 25 03/06/2025 COMPL ETE BLOOD COUNT platelet count 245 10*3/ uL 150-40 0 normal Not Available [facility] [address] [place] [address], [address], 03/06/2025 13:26:05 03/06/20 25 03/06/2025 COMPL ETE BLOOD COUNT neutrophil,a bsolute 5.3 10*3/ uL 1.6-8. 4 normal Not Available [facility] [address] [place] [address], [address], 03/06/2025 13:26:05 03/06/20 25 03/06/2025 COMPL ETE BLOOD COUNT lymphocyte,a bsolute 2.4 10*3/ uL 0.4-5. 1 normal Not Available [facility] [address] [place] [address], [address], 03/06/2025 13:26:05 03/06/20 25 03/06/2025 COMPL ETE BLOOD COUNT monocyte,abs olute 0.6 10*3/ uL 0.0-1. 2 normal Not Available [facility] [address] [place] [address], [address], 03/06/2025 13:26:05 03/06/20 25 03/06/2025 COMPL ETE BLOOD COUNT eosinophil,a bsolute 0.2 10*3/ uL 0.0-0. 8 normal Not Available [facility] [address] [place] [address], [address], 03/06/2025 13:26:05 03/06/20 25 03/06/2025 COMPL ETE BLOOD COUNT basophil,abs olute 0.0 10*3/ uL 0.0-0. 3 normal Not Available [facility] [address] [place] [address], [address], 03/06/2025 13:26:05 03/06/20 25 03/06/2025 COMPL ETE BLOOD COUNT % neutrophils 61.7 % 42.0-7 8.0 normal Not Available [facility] [address] [place] [address], [address], 03/06/2025 13:26:05 03/06/20 25 03/06/2025 COMPL ETE BLOOD COUNT % lymphocytes 27.7 % 11.0-4 7.0 normal Not Available [facility] [address] [place] [address], [address], 03/06/2025 13:26:05 03/06/20 25 03/06/2025 COMPL ETE BLOOD COUNT % monocytes 7.2 % 0.0-11 .0 normal Not Available [facility] [address] [place] [address], [address], 03/06/2025 13:26:05 03/06/20 25 03/06/2025 COMPL ETE BLOOD COUNT % eosinophils 2.9 % 0.0-7. 0 normal Not Available [facility] [address] [place] [address], [address], 03/06/2025 13:26:05 03/06/20 25 03/06/2025 COMPL ETE BLOOD COUNT % basophils 0.5 % 0.0-3. 0 normal Not Available [facility] [address] [place] [address], [address], 03/06/2025 13:26:05 03/06/20 25 03/06/2025 COMPL ETE BLOOD COUNT nucleated red cells 0.1 % 0.0-0. 9 normal Not Available [facility] [address] [place] [address], [address], 03/06/2025 13:26:05 03/06/20 25 03/06/2025 COMPL ETE BLOOD COUNT nucleated RBCs, absolute 0.01 10*3/ uL not estab. normal Not Available [facility] [address] [place] [address], [address], 03/06/2025 13:26:05 03/06/20 25 03/06/2025 GLYCO HEMOG LOBIN A1C glyco HGB A1C 6.4 % 0.0-5. 6 high Not Available [facility] [address] [place] [address], [address], 03/06/2025 13:46:11 03/06/20 25 03/06/2025 GLYCO HEMOG LOBIN A1C estimated avg. glucose 137 mg/dL _(josephine c) normal A1c value s betwe en 5.7% to 6.4% indic ate predi abete s. Resul ts 6.5% or great er is diagn ostic of diabe audrey. Ameri can Diabe audrey Assoc iatio n (diab etes. org) Not Available [facility] [address] [place] [address], [address], 03/06/2025 13:46:11 03/06/20 25 03/06/2025 BASIC METAB OLIC PANEL glucose 105 mg/dL 74-100 high Not Available [facility] [address] [place], [address], 03/06/2025 13:59:28 03/06/20 25 03/06/2025 BASIC METAB OLIC PANEL blood urea nitrogen 17 mg/dL 6-20 normal Not Available [facility] [address] [place] [address], [address], 03/06/2025 13:59:28 03/06/20 25 03/06/2025 BASIC METAB OLIC PANEL creatinine 1.04 mg/dL 0.50-0 .95 high Not Available [facility] [address] [place] [address], [address], 03/06/2025 13:59:28 03/06/20 25 03/06/2025 BASIC METAB OLIC PANEL BUN/creatini ne ratio 16 (calc ) 10-20 normal Not Available [facility] [address] [place] [address], [address], 03/06/2025 13:59:28 03/06/20 25 03/06/2025 BASIC METAB OLIC PANEL sodium 141 mmol/ L 136-14 5 normal Not Available [facility] [address] [place] [address], [address], 03/06/2025 13:59:28 03/06/20 25 03/06/2025 BASIC METAB OLIC PANEL potassium 4.1 mmol/ L 3.4-5. 0 normal Not Available [facility] [address] [place] [address], [address], 03/06/2025 13:59:28 03/06/20 25 03/06/2025 BASIC METAB OLIC PANEL chloride 101 mmol/ L 98-107 normal Not Available [facility] [address] [place] [address], [address], 03/06/2025 13:59:28 03/06/20 25 03/06/2025 BASIC METAB OLIC PANEL carbon dioxide 22 mmol/ L 22-31 normal Not Available [facility] [address] [place] [address], [address], 03/06/2025 13:59:28 03/06/20 25 03/06/2025 BASIC METAB OLIC PANEL anion gap 18 (calc ) 7-25 normal Not Available [facility] [address] [place], [address], 03/06/2025 13:59:28 03/06/20 25 03/06/2025 BASIC METAB OLIC PANEL calcium 9.9 mg/dL 8.6-10 .2 normal Not Available [facility] [address] [place], [address], 03/06/2025 13:59:28 03/06/20 25 03/06/2025 BASIC METAB OLIC PANEL eGFR 57 >= 60 abnormal NOT E New calcu latio n for GFR (CKD- EPI 2020) is formu lated witho ut race adjus tment facto rs at the recom menda tion of the [employer] ation and [employer] can Socie ty of Nephr ology . This calcu latio n has not been valid ated in pregn ant women . For pedia tric patie nts refer to https ://isrrael fisher.shantel sterling.o rg/pr ofess ional s/KDO QI/gf r_cal culat orPed Not Available [facility] [address] [place], [address], 03/06/2025 13:59:28 03/06/20 25 03/06/2025 FRUCT OSAMI [...] 1-3 WEEKS OR LONGE R. Not Available [facility] [address] [place], [address], 03/06/2025 14:00:15 03/06/20 25 03/08/2025 MRSA CULTU RE SCREE N MRSA culture screen NO MRSA ISOLAT ED Not Available [facility] [address] [place], [address], 03/08/2025 15:13:50 02/27/20 25 02/26/2025 XR, knee, 4 or more view formerly [facility] [address] [place], [place] [address] [phone] Patien t Name: JAREK johnson : 953 Jacobo johnson 51 Orderi ng Provid er: YULIYA NO EXAM DATE: 2024 EXAM: XR LT KNEE [...] Audelia cheung MD on 02/27/20 4:[id number] [facility] [address] [facility] [address], [address], 02/27/2025 12:01:20 03/12/20 25 03/12/2025 XR, joint , multi ple, [facility] [address] [place], [place] [address] [phone] Patien t Name: JAREK johnson : 951 [...] ly Signed By: Audelia cheung MD on 1:52 PM [email or web address] [facility] [address] [place], [address], 03/19/2025 06:25:50 04/22/20 25 04/22/2025 XR, knee, 3 view formerly [facility] [address] [place] [address] Patien t Name: JAREK johnson : 953 Patien t 53 Orderi [...] Audelia cheung MD on 04/22/20 10:09 AM [email or web address] [facility] [address] [place], [address], 04/22/2025 13:01:57 05/20/20 25 05/14/2025 XR, knee, 3 view [place] [facility] [address] [facility] [place], [place] [address] [phone] Jacobo t Name: JAREK johnson : 953 [...] Roldan Orona MD on 025 8:[address] [facility] [address] [place], [address], 05/21/2025 08:20:59 07/15/20 25 07/14/2025 XR, joint , multi ple, 1 view [place] [facility] [address] [place] [address] [phone] Jacobo t Name: JAREK johnson : 953 [...] a left knee arthro plasty in place withyaya antoine ce of compli cation . Interp reted By: Tito avery MD Electr onical ly Signed By: Tito avery MD on 2024 10:16 AM INTERFACE [facility] [address] [place], [address], 07/15/2025 10:21:40 Result Notes Documentation Provider Name and Address Organization Details Recorded Time Xr, Knee, 3 View : [facility] [address] [place] [address] Patient Name: SANJANA PIERSON Patient : 1955 [...] By: Santos Salmon MD NAN VEE PA-C [address] [place] [address], [address], [facility] 04/22/2025 13:01:57 Xr, Knee, 3 View : [facility] [address] [place] [address] Patient Name: SANJANA PIERSON Patient : 1955 [...] By: Roldan Orona MD NAN VEE PA-C [address] [place] [address], [address], [facility] 05/21/2025 08:20:59 Xr, Joint, Multiple, 1 View : [facility] [address] [place] [address] Patient Name: SANJANA PIERSON Patient : 1955 Patient Ordering Provider: SHANNAN VEE EXAM DATE: 07/14/2025 EXAM: XR LONG LEG LEFT/ JOINT SURVEY COMPARISON: 05/14/25. HISTORY: Follow-up of prior surgery. FINDINGS: There is a left total knee arthroplasty in place. There is no evidence of loosening or complication. The mechanical axis of the left knee is normal. No fracture is identified. There are mild degenerative changes in the left hip and minimal degenerative changes in the ankle. IMPRESSION: 1. There is a left knee arthroplasty in place without evidence of complication. Interpreted By: Tito Garrido MD Not Available [facility] 07/15/2025 10:21:40 Problems Name Problem SNOMED Code Status Onset Date Resolution Date Notes Provider Name and Address Organization Details Recorded Time Joint disorder due to systemic lupus erythematos 2817249815 Active 2024 KYREE SARABIA MD [address] [place] [address], [address], [facility] 16:57:42 Obese class III 156317385 Active 2024 KYREE SARABIA MD [address] [place] [address], [address], [facility] 16:57:43 Osteoarthri tis of left knee joint 3404515016934 09 Active 2024 KYREE SARABIA MD [address] [place] [address], [address], [facility] 5 16:57:45 Problem Notes None recorded. Procedures Surgical History Date Name Laterality Status Provider Name and Address Organization Details Recorded Time 5 total replacement of left knee joint completed Cathy Gill [facility] 04/22/2025 08:14:17 5 PCM Visit completed Luisanthony Johnson [facility] 04/14/2025 14:21:58 total replacement of right hip joint completed Cathy [facility] 03/04/2025 15:24:13 Imaging Results None recorded. Procedure Notes None recorded. Medical Equipment None Reported. Allergies Allergen ID Allergen Name Allergen Category Reaction Reaction Severity Criticality Documentation Date Start Date Code Code System Note Provider Name and Address Organization Details Recorded Time 278117 codeine medicatio n Not available Not available Not available 05/06/2024 2670 RxNorm Tamra Domonique [facility] 4 09:35:48 541863 naproxen medicatio n Not available Not available Not available 05/06/2024 7258 RxNorm Tamra Domonique [facility] 4 09:35:54 691834 acetamino phen medicatio n Not available Not available Not available 07/03/20252023 161 RxNorm unrec ogniz ed react ion (text : Provi howard Karla w Needandre d, code: 88052 0000) [facility] Not Available [facility] [employer] - prod 5 08:54:22 507702 oxycodone hydrochlo ride medicatio n Not available Not available Not available 07/03/20252023 29285 RxNorm unrec ogniz ed react ion (text : Other (See Comme nts), code: 72885 003) (from [facility] e) Not Available [facility] [employer] - prod 5 08:54:58 295904 ketorolac medicatio n Not available Not available Not available 07/03/2025 61270 RxNorm Not Available [facility] [employer] - prod 5 08:55:28 356389 tramadol medicatio n Not available Not available Not available 07/03/20252021 55875 RxNorm Not Available [employer] - prod 5 08:55:28 735048 naproxen sodium medicatio n Not available Not available Not available 07/03/20252024 64902 2 RxNorm Stoma ch cramp s Not Available [employer] - prod 5 08:55:45 281238 oxycodone medicatio n Not available Not available Not available 07/03/20252024 7804 RxNorm Stoma ch cramp s Not Available [employer] [facility] prod 5 08:55:45 646162 acetamino phen / oxycodone medicatio n Not available Not available Not available 07/14/2025 08031 3 RxNorm Not Available [employer] [facility] prod 5 07:09:13 Medications Name Sig Start Date [...] Updated DateTime 03/23/2025 162.56 cm 43.4 kg/m2 901201.87 g Carlton Nikkikoffi Johnson [facility] 03/28/2025 10:25:41 Date Recorded Body height Body mass index (BMI) Body weight Provider Name and Address Organization Details Last Updated DateTime 04/22/2025 162.56 cm 43.4 kg/m2 031914.87 g Justine Reese [facility] 04/22/2025 09:47:34 Date Recorded Body height Body mass index (BMI) Body weight Provider Name and Address Organization Details Last Updated DateTime 05/14/2025 162.56 cm 43.4 kg/m2 516450.87 g Slava Blakely [facility] 05/14/2025 14:38:34 Date Recorded Body height Body mass index (BMI) Body weight Provider Name and Address Organization Details Last Updated DateTime 07/14/2025 162.56 cm 42.1 kg/m2 322554.13 g Ruthie James [facility] 07/14/2025 15:21:51 Social History Question Answer Notes LastModified by Organizat ion Details LastModified Time Tobacco Smoking Status Never Smoker Cathy Gill [facility] 03/04/2025 15:19:07 What Was The Date Of Your Most Recent Tobacco Screening? 03/04/2025 Information not available 03/04/2025 Has Tobacco Cessation Counseling Been Provided? No [email or web address] Information not available 03/04/2025 Sex: Female Functional Status Question Answer Note LastModified by Organizat ion Details LastModified Time Do you use any illicit or recreational drugs? No [email or web address] Information not available 03/04/2025 Do you or have you ever used any other forms of tobacco or nicotine? No [email or web address] Information not available 03/04/2025 What is your level of alcohol consumption? None [email or web address] Information not available 03/04/2025 Mental Status None recorded. Family History Nothing Reported. Medical History Condition Response Allergies/Hayfever N Gout Y Other N Anxiety/Depression N Thyroid Disease N Heart Conditions N Kidney Stones N Hernia N Migraines N COPD N Glaucoma N Pneumonia N Skin Problems N Immune System Disorder N Anesthesia Complications N Heart Attack ([place]) N Mental Illness N Neurological Problems N [...] Time zoster recombinant 9 completed Cathy Gill [facility] 03/04/2025 15:18:20 zoster recombinant 9 completed Cathy Gill [facility] 03/04/2025 15:18:20 Influenza, high-dose, quadrivalent, PF 2 completed Cathy Gill [facility] 03/04/2025 15:18:20 Tdap 9 completed Cathy Gill [facility] 03/04/2025 15:18:20 Pneumococcal conjugate PCV 13 9 completed Cathy Gill [facility] 03/04/2025 15:18:20 Influenza, high-dose, trivalent, PF 9 completed Cathy Gill [facility] 03/04/2025 15:18:20 Influenza, high-dose, trivalent, PF 0 completed Cathy Gill [facility] 03/04/2025 15:18:20 Influenza, high-dose, trivalent, PF 8 completed Cathy Gill [facility] 03/04/2025 15:18:20 Past Encounters Encounter ID Performer Location Encounter Start Date Encounter Closed Date Diagnosis/Indication Diagnosis SNOMED-CT Code Diagnosis ICD10 Code Diagnosis IMO Codes Diagnosis Note [id number] ASHLEIGH ROGERS, INTERLOCKING PAVEMENT INSTALLER [facility] [address] [place] [id number] 02/05/2024 12:53:38 02/06/2024 05:14:28 Lumbar spondylosis 883841164 M47.896 [id number] LISA ECHEVERRIA PA-C [facility] [address] [place] [address] 05/06/2024 09:29:54 05/07/2024 04:26:58 Low back pain 056347477 M54.50 [id number] YULIYA NO PA-C [facility] [address] [place] [address] 02/26/2025 15:18:11 02/26/2025 16:03:43 Osteoarthritis of left knee joint 4288520907 13969 M17.12 [id number] Mrs. Pierson is a pleasant 70-year-ol d female here today for initial evaluation of left knee osteoarthr itis, knee pain. She reports she has been working with Dr. Braga at [facility], she has had multiple left knee [...] formal physical therapy, exercise, rest/ice/c ompress/el evate (MARYBEL mcgrath), anti- inflammato lore (NSAIDs), topical gels/cream s, [...] today. 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 Voss for formal surgical discussion along with risks/bene fits of a total knee arthroplas ty. Possible surgery: ASC vs [facility] nt medical history: Denies cardiac/liane ng/DVT/PE/ smoking/di abetes historyOth er notable informatio n: Interestin gly, she has 11 sisters and one brother, boyfriend will help her after surgery ; difficulty with NSAIDs due to stomach issues [id number] KYREE Rain MD [facility] [address] [place] [address] 03/04/2025 15:13:56 03/06/2025 14:42:04 Osteoarthritis of left knee joint 7997974036 32324 M17.12 [id number] ASSESSMENT : DJD LEFT knee PLAN:The patient [...] potential cost sharing responsibi lities; only one [facility] er can furnish and bill for PCM services during a calendar month, and the patient can stop these services at any time. The patient understand s and has verbally consented to accept PCM services and has been provided a copy of a written explanatio n of this service today. Surgery date: 03-31-25bennie akila location: [facility] equipment: Cemented Ruma MCPre-op clearance: Alvaro Whaley medical clearance: DVT prophylaxi s: ASA, TEDAdmissi on status: OUTPATIENT Discharge plan: overnight admissionP T: home health Allergies: otherSkin testing: No Obese class III 24216075 5 E66.813 [id number] Class III obesity with BMI 43. Obesity increases this patient's risk for medical and surgical complicati ons including superficia l deep infection, respirator y compromise , aseptic loosening, and premature component wear. Weight loss prior to surgery was strongly encouraged . Joint diso rder due to systemic lupus erythematosus 1646413766 M32.9 [id number] She is currently maintained on hydroxychl oroquine [...] is considered a nonmodifia ble risk factor. [id number] RADHA YEN PA-C [facility] [address] [place] [address] 03/12/2025 10:10:26 03/13/2025 05:19:28 Pre-surgery evaluation 912151425 Z01.016 [id number] Chronic conditions appear stable. Preoperati ve lab [...] to the best of my ability. Prediabetes 993525985 R7 3.03 Patient is prediabeti c on preoperati ve screening. Recommend follow-up with primary care for recheck in 3 to 6 months. Discussed lifestyle modificati ons. Serum crea tinine above reference range 664415751 R79.89 091295 Creatinine 1.04 with EGFR 57. Limit nephrotoxi c agents postoperat ively. Irregular heart beat 361 284955 I49.9 [id number] EKG @ [facility] for baseline- followed by [facility] cardiology -[facility] RRR today [id number] KYREE Rain MD [facility] [address] [place] [address] 1 03/24/2025 14:15:04 04/15/2025 10:24:56 Osteoarthritis of left knee joint 5904763629 36134 M17.12 [id number] Sanjana was seen by Dr Chip rain where surgical plan was discussed and finalized for left total knee arthroplas ty on 03/31/25. [id number] KYREE Rain MD SURGERY SCHEDULE [address] [place] [address] 04/03/2025 14:43:47 04/11/2025 13:30:41 [id number] SHANNAN VEE PA-C [facility] [address] [place] [address] 1 04/22/2025 09:41:13 04/22/2025 10:44:35 [id number] SHANNAN VEE PA-C [facility] [address] [place] [address] 1 05/14/2025 13:52:09 05/14/2025 15:21:36 History of left total knee replacement [id number] 860118 Z96.652 [id number] Pt is here today for 6 week [...] begin working on strengthen ing the leg; weempharaadz ed the importance of continuing their HEP to build and maintain strength.W e reviewed scar massages and tissue mobilizati on. Return to clinic in 2 months for long-leg radiograph s and reevaluati on. [id number] SHANNAN VEE PA-C [facility] [address] [place] [address] 07/14/2025 14:33:30 07/14/2025 15:41:30 History of left total knee replacement [id number] Z96.652 [id number] Patient is here today for routine 12 week follow up Left TKA. Patient is doing very well. She is having some mild to moderate quadriceps pain from time to time but this did not significan tly limit her ability or mobility in the left lower extremity. Patient does have a history of chronic lower back pain and follows with pain management for this. She is ambulating with a cane secondary to balance issues and chronic lower back pain. She has finished all PT. Radiograph s obtained today reveal intact TKA implants in good positionin g and alignment, with no evidence of loosening, lysis or RLLs. Physical exam reveals good ROM without pain and a well-heale d surgical scar. At this time, the patient is encouraged to gradually resume activities of daily living as comfortabl e, including walking for increasing periods of time, swimming, and driving. The patient should begin working on strengthen ing the leg; we emphasized the importance of continuing their HEP to build and maintain strength. We reviewed scar massages and tissue mobilizati on. RTC in 1 year or sooner if symptoms warrant for radiograph s for TKA. Health Concerns Section Related Observation LastModified by Organization Detai ls LastModified Time None Recorded Concern Status LastModified by Organization Details LastModified Time None Recorded Advance Directives Directive None Recorded Payers Insurance Date Sequence Insurance Name Policy Number Policy Lofton Covered Member ID Lofton Member ID Guarantor Name 07/11/2025 2 [employer] SUPPLEMENTAL - [employer]URANCE (MEDICARE SUPPLEMENT) Sanjana Pierson [id number] Sanjana Pierson 07/11/2025 1 [place] Sanjana Pierson [id number] Sanjana Pierson Notes Date Note Type [...] refill of pain medicine. SHANNAN VEE PA-C [address] [place] [address], [address], [facility] 04/22/2025 10:47:51 05/14/2025 text/html 05/14/25Patient is 6 weeks s/p L TKA, on 03-31-2025.Pain is improving incision healing without complication.Ambul ating with canePT: HEP Denies fevers, chills, or wound drainage. They do not request a refill of pain medicine. 04/22/25Patient is 3 weeks s/p L TKA, 03-31-2025.Pain is improving incision healing without complication.Sid siddiquily taking tramadol which she was taking prior [...] of pain medicine. SHANNAN VEE PA-C [address] [place], [address], [facility] 05/14/2025 15:22:49 07/14/2025 text/html ROS as noted in the [facility] 07.14.25Patient is here today for 10 week post op visit from L TKA. Doing well. Pain improving Ambulating with cane PT: HEP Still taking narcotics yes Takes tramadol/gabapenti n at baseline with chronic pain management Denies fevers, chills, or wound drainage. 05/14/25Patient is 6 weeks s/p L TKA, [...] refill of pain medicine. SHANNAN VEE PA-C [address] [place], [address], [facility] 07/14/2025 15:42:55 OBGyn Episode No OBEpisode recorded.
--- OUTSIDE RECORDS SUMMARY | 2025-07-16 07:45 | XMS_ITS | Encounter Summary ---
[facility] Address [address] [place] [address] Care Team Providers Care Cobbler Sole Name Role Phone Dillan Jain MD Primary Care Provider [phone] Encounter Details Date Type Department Care Team [...] Description 12/08/2025 2:45 PM EDT Office Visit [facility] RHEUMATOLOGY [address] [place] [address] DO 330 [facility] [address] [place] [address] documented as of this encounter Visit Diagnoses Not on filedocumented in this encounter Care Teams Cobbler Sole Relationship Specialty Start Date End Date Dillan Jain MD [address] [facility] [address] [place] [id number] PCP - General Family Medicine 05/28/24 documented as of this encounter
--- OUTSIDE RECORDS SUMMARY | 2025-07-16 07:45 | XMS_ITS | Encounter Summary ---
Author Organization [facility] yste Address [address] [place] [address] Care Team Providers Care Automatic Glove Former Name Role Phone Dillan Jain MD Primary Care Provider [phone] Encounter Details Date Type Department Care Team (Late st Contact Info) Description 06/06/2025 Telephone [facility] RHEUMATOLOGY [address] [address] DO [address] [address] Social History Tobacco Use Types Packs/Day Years [...] - 06/06/2025 4:01 PM EDT Jennifer with [facility] OP Registration called to verify we had the correct fax number. [phone]. Theydidn't receive lab orders for pt. I re-faxed them. -AVA Sousa * Telephone Encounter - Sarah Canales RN - 06/06/2025 3:38 PM EDT Faxed labs to [phone] per pt. request documented in this encounter Plan of Treatment Upcoming Encounters Date Type Department Care Team (Late st Contact Info) Description 12/08/2025 2:45 PM EDT Office Visit [facility] RHE[facility]OLOGY [address] [address] DO [address] [address] documented as of this encounter Visit Diagnoses Not on filedocumented in this encounter Care Teams Automatic Glove Former Relationship Specialty Start Date End Date Dillan Jain MD [address] [facility] [address] [place] [address] PCP - General Family Medicine 05/28/24 documented as of this encounter
--- OUTSIDE RECORDS SUMMARY | 2025-07-16 07:45 | XMS_ITS | Continuity of Care Document ---
Author Organization [facility], ORTHOPEDICS [address] [place] [address] Care Team Providers Care Cancer Registry Coordinator Name Role Phone ABDI GUTIÉRREZ Primary Care Provider [phone] ABDI GUTIÉRREZ Referring Provider [phone] KYREE BUTLER Orthopedic Surgeon [phone] Assessment No assessment recorded. Plan of Treatment Reminders Order Date Submit Date Provider Last Modified By Organization Details Last Modified Time Details Appointments None recorded. Lab None recorded. Referral None recorded. Procedures None recorded. Surgeries None recorded. Imaging None recorded. Medication Orders meloxicam 7.5 mg tablet 2024 025 [facility], [address], [address], 15:17:59 Patient TargetsNo targets recorded. Patient InstructionsNo instructions recorded. Reason for Referral None Reported. Results Created Date Observation Date Name Description Value Unit Range Abnormal Flag Note LastModifiedBy Organization Detail LastModifiedTime 04/22/2004/22/2025 XR, knee, 3 view [facility] [address] [place] [address] Patien t Name: JAREK johnson : 953 Patikyra t 53 Orderi ng Provid er: SHANNAN VEE EXAM DATE: 2024 EXAM: XR LT KNEE 3 VIEWS COMPAR PATRICIA: 02/27/20 25 HISTOR Y: Follow -up of prior chai WILLS GS: There has been interv al [...] ing. Interp reted By: Audelia cheung MD [facility] onical ly Signed By: Audelia cheung MD on 04/22/20 10:[address] Radiology [address] [place], [address], 04/22/2025 13:01:57 05/20/20 25 05/14/2025 X[facility], [facility] [address] [place] [id number] Patikyra t Name: JAREK johnson : 953 Patikyra [...] Roldan Orona MD on 025 8:[address] Radiology [address] [place], [address], 05/21/2025 08:20:59 07/15/2007/14/2025 XR, joint , multi ple, 1 view [facility] [address] [facility] [place] [address] 859-13 [address] Patien t Name: JAREK johnson : 953 Jacobo johnson 53 Claribel lipscomb Provid er: SHANNAN VEE EXAM DATE: 2024 EXAM: XR LONG LEG LEFT/ JOINT SURVEY COMPAR PATRICIA: 5. HISTOR Y: Follow -up of prior surger yAnupam WILLS GS: There is a left total knee [...] avery MD on 2024 10:16 AM INTERFACE [facility] Radiology [address] [place], [address], 07/15/2025 10:21:40 Result Notes None recorded. 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 Procedures Surgical History Date Name Laterality Status Provider Name and Address Organization Details Recorded Time 5 total replacement of left knee joint completed Cathy Gill [facility] 04/22/2025 08:14:17 5 PCM Visit completed Tamiko Alex [facility] 04/14/2025 14:21:58 total replacement of right hip joint completed Cathy Jairo [facility] 03/04/2025 15:24:13 Imaging Results None recorded. Procedure Notes None recorded. Medical Equipment None Reported. Allergies Allergen ID Allergen Name Allergen Category Reaction Reaction Severity Criticality Documentation Date Start Date Code Code System Note Provider Name and Address Organization Details Recorded Time 767213 codeine medicatio n Not available Not available Not available 05/06/2024 2670 RxNorm Tamra Hiltonholz [facility] 4 09:35:48 736001 naproxen medicatio n Not available Not available Not available 05/06/2024 7258 RxNorm Tamradania Catalanz [facility] 4 09:35:54 869414 acetamino phen medicatio n Not available Not available Not available 07/03/20252023 161 RxNorm unrec ogniz ed react ion (text : Provi howard Revrich w Neede d, code: 42050 0000) (from [facility] sour e) Not Available [facility] [employer] - prod 5 08:54:22 504499 oxycodone hydrochlo ride medicatio n Not available Not available Not available 07/03/20252023 39078 RxNorm unrec ogniz ed react ion (text : Other (See Comme nts), code: 54587 003) (from [facility] e) Not Available [facility] - [employer] - prod 5 08:54:58 031058 ketorolac medicatio n Not available Not available Not available 07/03/2025 03029 RxNorm Not Available herman - [employer] - prod 5 08:55:28 776106 tramadol medicatio n Not available Not available Not available 07/03/20252021 83110 RxNorm Not Available [employer] - prod 5 08:55:28 461528 naproxen sodium medicatio n Not available Not available Not available 07/03/20252024 29979 2 RxNorm Stoma ch cramp s Not Available [facility] [employer] - prod 5 08:55:45 090749 oxycodone medicatio n Not available Not available Not available 07/03/20252024 7804 RxNorm Stoma ch cramp s Not Available [facility] [employer] - prod 5 08:55:45 049731 acetamino phen / oxycodone medicatio n Not available Not available Not available 07/14/2025 90540 3 RxNorm Not Available [facility] [employer] - prod 5 07:09:13 Medications [...] Updated DateTime 05/14/2025 162.56 cm 43.4 kg/m2 598652.87 maren Blakely [facility] 05/14/2025 14:38:34 Social History Question Answer Notes LastModified by Organizat ion Details LastModified Time Tobacco Smoking Status Never Smoker Cathy Gill [facility] 03/04/2025 15:19:07 What Was The Date Of Your Most Recent Tobacco Screening? 03/04/2025 [email or web address] Information not available 03/04/2025 Has Tobacco Cessation Counseling Been Provided? No Information not available 03/04/2025 Sex: Female Functional Status Question Answer Note LastModified by Organizat ion Details LastModified Time Do you use any illicit or recreational drugs? No [email or web address] Information not available 03/04/2025 Do you or have you ever used any other forms of tobacco or nicotine? No [email or web address] Information not available 03/04/2025 What is your level of alcohol consumption? None [email or web address] Information not available 03/04/2025 Mental Status None recorded. Family History Nothing Reported. Medical History Condition Response Allergies/Hayfever N Anxiety/Depression N Other N Gout Y Thyroid Disease N Kidney Stones N Heart Conditions N Hernia N Migraines N COPD N Glaucoma N Pneumonia N Skin Problems N Immune System Disorder N Anesthesia Complications N Heart Attack (DE) N Mental Illness N Neurological Problems N [...] Recorded Time [facility]oster recombinant [facility] 15:18:20 zoster recombinant 9 completed Cathy Gill [facility] 03/04/2025 15:18:20 Influenza, high-dose, quadrivalent, PF 2 completed Cathy panchal, [facility] 03/04/2025 15:18:20 Tdap 9 completed Cathy panchal, [facility] 03/04/2025 15:18:20 Pneumococcal conjugate PCV 13 9 [facility] 15:18:20 Influenza, high-dose, trivalent, PF 9 completed Cathy Gill null, [facility] 03/04/2025 15:18:20 Influenza, high-dose, trivalent, PF 0 completed Cathy panchal, [facility] 03/04/2025 15:18:20 Influenza, high-dose, trivalent, PF 8 [facility] 15:18:20 Past Encounters Encounter ID Performer Location Encounter Start Date Encounter Closed Date Diagnosis/Indication Diagnosis SNOMED-CT Code Diagnosis ICD10 Code Diagnosis IMO Codes Diagnosis Note [id number] SHANNAN VEE PA-C [facility] [address] [place] [address] 04/22/2025 09:41:13 04/22/2025 10:44:35 [id number] SHANNAN VEE PA-C [facility] [address] [place] [address] 05/14/2025 13:52:09 05/14/2025 15:21:36 History of left total knee replacement [id number] 987873 Z96.652 [id number] Pt is here today for 6 week [...] Lofton Member ID Guarantor Name 05/14/2025 1 MEDICARE-[employer] (MEDICARE) Sanjana Pierson [id number] Sanjana Pierson 05/14/2025 2 CIGNA SUPPLEMENTAL - C[employer] HE[employer] AND LIFE INSURANCE (MEDICARE SUPPLEMENT) Sanjana Pierson [id number] Sanjana Pierson Notes Date Note Type [...] not request a refill of pain medicine. SHELDON MICHAEL-C [address] [place], [address], [facility] 05/14/2025 15:22:49 OBGyn Episode No OBEpisode recorded.
--- OUTSIDE RECORDS SUMMARY | 2025-07-16 07:45 | XMS_ITS | Encounter Summary ---
[facility] [address] [place] [address] Care Team Providers Care Steam Clean Machine Operator Name Role Phone Dillan Jain MD Primary Care Provider [phone] Reason for Visit * Reason Onset Date Comments LAB ORDERS DOES NOT HAVE DR SPRINGER 06/10/2025 Encounter Details Date Type Department Care Team (Late st Contact Info) Description 06/10/2025 Telephone [facility] RHEUMATOLOGY [address] [address] DO [address] [id number] LAB ORDERS DOES NOT HAVE DR SPRINGER [...] 3:37 PM EDT I re-faxed labs to [facility] at the number provided in pt's message below. - AVA Sousa * Telephone Encounter - Jerrica Carmona RegSched Rep - 06/10/2025 12:01 PM EDT Provider: SAFIA Caller: Sanjana Pierson Relationship to Patient: Self [facility] RECEIVED A LAB ORDER BUT IT DOES NOT HAVE THE DR SIGNATURE. PLEASE REFAXWITH DR SIGNATURE [phone] documented in this encounter Plan of Treatment Upcoming Encounters Date Type Department Care Team (Late st Contact Info) Description 12/08/2025 2:45 PM EDT Office Visit [facility] RHEUMATOLOGY [address] [address] DO [address] [address] documented as of this encounter Visit Diagnoses Not on filedocumented in this encounter Care Teams Steam Clean Machine Operator Relationship Specialty Start Date End Date Dillan Jain MD [address] [facility] [address] [facility] [address] [place] [address] PCP - General Family Medicine 05/28/24 documented as of this encounter
--- OUTSIDE RECORDS SUMMARY | 2025-07-16 07:45 | XMS_ITS | Referral Summary ---
Author Organization [employer] ([place], [place], [place], [place], [place]) Address [address] [place] [address] Care Team Providers Care Survey Research Professor Name Role Phone Dillan Jain MD Primary Care Provider [phone] Allergies Active Allergy Reactions Criticality Noted Date [...] on file Medical Devices Implanted Type Area Manager Clinical Pharmacy Device Identifier Shelf Expiration Date Model / Serial / Lot Cement Bone Smplx 6194-1-001 - [id number] Implanted:Qt y: 2 on 03/31/2025 by Carly Bob MD at [facility] IMPLANTS Left: Knee IDRIS:[employer] [id number] 07/20/2026 6194-1-00 1 / [id number] F Articular Surface 11mm 8-11 Lt 70-2819-629- 11 - [id number] Implanted:Qt y: 1 on 03/31/2025 by Carly Bob MD at [facility] TOTAL JOINT CONSTRUCT Left: Knee TORREY:TORREY [id number] 07/07/2029 42-5121-0 03-31 [id number] Psn Fem Narr Tony Sz 10 L 90-2053-996- 01 - [id number] Implanted:Qt y: 1 on 03/31/2025 by Carly Bob MD at [facility] TOTAL JO[employer]STRU[employer] Left: Knee TORREY:TORREY [id number] 11/26/2034 42-5020-0 68- [id number] Psn Tibia 0 Keel L Sz E 29-9847-211- 01 - [id number] Implanted:Qt y: 1 on 03/31/2025 by Carly Bob MD at [facility] TOTAL JOINT CONSTRUCT Left: Knee TORREY:TORREY 01/08/2035 42-5360-0 71- [id number] Insurance MEDICARE PART A B [facility]LY [facility] MCR SUPP Advance Directives For more information, please contact: [phone] * Full Code (Latest Code Status on File) Date Activated Date Inactivated Comments 03/31/2025 9:47 AM 04/01/2025 3:21 PM * Full Code Date Activated Date Inactivated Comments 03/31/2025 6:12 AM 03/31/2025 9:47 AM Care Teams Survey Research Professor Relationship Specialty Start Date End Date Dillan Jain MD [address] [place] [address] PCP - General Family Medicine 03/24/25
--- OUTSIDE RECORDS SUMMARY | 2025-07-16 07:45 | XMS_ITS | Continuity of Care Document ---
Author Organization [facility], ORTHOPEDICS [address] Address [address] [place] [address] Care Team Providers Care Product Assurance Engineer Name Role Phone MARLA ABDI Primary Care Provider ABDI GUTIÉRREZ Referring Provider [...] Abnormal Flag Note LastModifiedBy Organization Detail LastModifiedTime 07/15/20 25 07/14/2025 XR, joint , multi ple, [address] [facility] [address] [facility] [place] [address] [phone] Patien t Name: JAREK Centeno t : 953 Patien t 53 Orderi ng [...] left knee arthro plasty in place withyaya anotine ce of compli cation . Interp reted By: Tito avery MD Electr onical ly Signed By: Tito avery MD on 2024 10:16 AM INTERFACE [facility] Radiology [address] [place], [address], 07/15/2025 10:21:40 Result Notes None recorded. 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 Procedures Surgical History Date Name Laterality Status Provider Name and Address Organization Details Recorded Time total replacement of left knee joint completed Cathy Gill [facility] 04/22/2025 08:14:17 PCM Visit completed Tamiko Johnson [facility] 04/14/2025 14:21:58 total replacement of right hip joint completed Cathy Gill [facility] 03/04/2025 15:24:13 Imaging Results None recorded. Procedure Notes None recorded. Medical Equipment None Reported. Allergies Allergen ID Allergen Name Allergen Category Reaction Reaction Severity Criticality Documentation Date Start Date Code Code System Note Provider Name and Address Organization Details Recorded Time 667410 codeine medicatio n Not available Not available Not available 05/06/2024 2670 RxNorm Tamra Domonique null, [facility] 4 09:35:48 462893 naproxen medicatio n Not available Not available Not available 05/06/2024 7258 RxNorm Tamra Domonique null, [facility] 4 09:35:54 103012 acetamino phen medicatio n Not available Not available Not available 07/03/20252023 161 RxNorm unrec ogniz ed react ion (text : Provi howard Revie w Neede d, code: 07561 0000) (from exter nal sourc e) Not Available [facility] - External Data Service - prod 5 08:54:22 793849 oxycodone hydrochlo ride medicatio n Not available Not available Not available 07/03/20252023 86984 RxNorm unrec ogniz ed react ion (text : Other (See Comme nts), code: 38314 003) (from exter nal sourc e) Not Available [facility] - External Data Service - prod 5 08:54:58 896492 ketorolac medicatio n Not available Not available Not available 07/03/2025 37681 RxNorm Not Available [facility] - External Data Service - prod 5 08:55:28 850234 tramadol medicatio n Not available Not available Not available 07/03/20252021 84763 RxNorm Not Available [facility] - External Data Service - prod 5 08:55:28 774166 naproxen sodium medicatio n Not available Not available Not available 07/03/20252024 13198 2 RxNorm Stoma ch cramp s Not Available [facility] - External Data Service - prod 5 08:55:45 779401 oxycodone medicatio n Not available Not available Not available 07/03/20252024 7804 RxNorm Stoma ch cramp s Not Available [facility] - External Data Service - prod 5 08:55:45 251454 acetamino phen / oxycodone medicatio n Not available Not available Not available 07/14/2025 82033 3 RxNorm Not Available [place] - External Data Service - prod 5 07:09:13 Medications [...] Updated DateTime 07/14/2025 162.56 cm 42.1 kg/m2 620950.13 g Ruthie Ramirez [facility] 07/14/2025 15:21:51 Social History Question Answer Notes LastModified by Organizat ion Details LastModified Time Tobacco Smoking Status Never Smoker Cathy panchal [facility] 03/04/2025 15:19:07 What Was The Date Of Your Most Recent Tobacco Screening? 03/04/2025 [email or web address] Information not available 03/04/2025 Has Tobacco Cessation Counseling Been Provided? No [email or web address] Information not available 03/04/2025 Sex: Female Functional Status Question Answer Note LastModified by Organizat ion Details LastModified Time Do you use any illicit or recreational drugs? No [email or web address] Information not available 03/04/2025 Do you or have you ever used any other forms of tobacco or nicotine? No [email or web address] Information not available 03/04/2025 What is your level of alcohol consumption? None [email or web address] Information not available 03/04/2025 Mental Status None recorded. Family History Nothing Reported. Medical History Condition Response Allergies/Hayfever N Anxiety/Depression N Other N Gout Y Thyroid Disease N Kidney Stones N Heart Conditions N Hernia N Migraines N COPD N Glaucoma N Pneumonia N Skin Problems N Immune System Disorder N Anesthesia Complications N Heart Attack ([place]) N Mental Illness N Neurological Problems N [...] Time zoster recombinant 9 completed Cathy Gill [facility] 03/04/2025 15:18:20 zoster recombinant 9 completed Cathy Gill [facility] 03/04/2025 15:18:20 Influenza, high-dose, quadrivalent, PF 2 completed Cathy Gill [facility] 03/04/2025 15:18:20 Tdap 9 jina Gill [facility] 03/04/2025 15:18:20 Pneumococcal conjugate PCV 13 9 jina Gill [facility] 03/04/2025 15:18:20 [facility] 15:18:20 Influenza, high-dose, trivalent, PF 0 completed Cathy Gill [facility] 03/04/2025 15:18:20 Influenza, high-dose, trivalent, PF 8 completed Cathy Gill [facility] 03/04/2025 15:18:20 Past Encounters Encounter ID Performer Location Encounter Start Date Encounter Closed Date Diagnosis/Indication Diagnosis SNOMED-CT Code Diagnosis ICD10 Code Diagnosis IMO Codes Diagnosis Note [id number] SHANNAN VEE PA-C [facility] [address] [place] [address] 07/14/2025 14:33:30 07/14/2025 15:41:30 History of left total knee replacement 9600863230 826572 Z96.652 [id number] Patient is here today for routine 12 [...] Member ID [place] Member ID Guarantor Name 07/14/2025 1 MEDICARE-[place] (MEDICARE) Sanjana Pierson [id number] Sanjana Pierson 07/14/2025 2 [employer] SUPPLEMENTAL - [employer]URANCE (MEDICARE SUPPLEMENT) Sanjana Pierson [id number] Sanjana Pierson Notes Date Note Type Note Provider Name and Address Organization Details Recorded Time 07/14/2025 text/html ROS as noted in the HPI 07.14.25Patient is here today for 10 week [...] TKA, 03-31-2025.Pain is improving incision healing without complication.Currandre ntly taking tramadol which she was taking [...] refill of pain medicine. SHANNAN VEE PA-C [facility] [place], [address], [facility] - [facility] 07/14/2025 15:42:55 OBGyn Episode No OBEpisode recorded.
--- OUTSIDE RECORDS SUMMARY | 2025-07-16 07:45 | XMS_ITS | Encounter Summary ---
[facility] Organization [facility] [address] [place] [address] Care Team Providers Care Language Tutor Name Role Phone Dillan Jain MD Primary Care Provider [phone] Encounter Details Date Type Department Care Team (Late st Contact Info) Description 06/16/2025 Results Follow-Up [facility] RHEUMATOLOGY [address] [place] [address] DO [address] [place] [id number] Social History Tobacco Use Types Packs/Day Years [...] Description 12/08/2025 2:45 PM EDT Office Visit [facility] R[facility] [address] [address] DO [address] [id number] documented as of this encounter Visit Diagnoses Not on filedocumented in this encounter Care Teams Language Tutor Relationship Specialty Start Date End Date Dillan Jain MD [address] [facility] [address] [facility] [address] [place] [address] PCP - General Family Medicine 05/28/24 documented as of this encounter
--- OUTSIDE RECORDS SUMMARY | 2025-07-16 07:45 | XMS_ITS | Clinical Summary ---
Author Organization [facility] ([place], [place], [place], [place], [place]) Address [address] [place] [address] Care Team Providers Care Tool Engine Lathe Set Up Operator Name Role Phone Dillan Jain MD Primary Care Provider [phone] Allergies Active Allergy Reactions Criticality Noted Date [...] Completed 12/26/2018, Medical Devices Implanted Type Area Md Psychiatry Device Identifier Shelf Expiration Date Model / Serial / Lot Cement Bone Smplx Hv 6194-1-001 - [id number] Implanted:Qt y: 2 on 03/31/2025 by Carly Bob MD at [facility] IMPLANTS Left: Knee IDRIS:[employer] [id number] 07/20/2026 6194-1-00 1 / / [id number] F Articular Surface 11mm 8-11 Lt 80-9968-460- 11 - [id number] Implanted:Qt y: 1 on 03/31/2025 by Carly Bob MD at [facility] TOTAL JOINT CONSTRUCT Left: Knee TORREY:TORREY [place] [id number] 07/07/2029 42-5121-0 08 [id number] Psn Fem Narr Tony Sz 10 L 95-1909-376- 01 - [id number] Implanted:Qt y: 1 on 03/31/2025 by Carly Bob MD at [facility] TOTAL JOINT CONSTRUCT Left: Knee TORREY:TORREY [place] [id number] 11/26/2034 42-5020-0 68 [id number] Psn Tibia 0 Keel L Sz E 66-1639-098- 01 - [id number] Implanted:Qt y: 1 on 03/31/2025 by Carly Bob MD at [facility] TOTAL JOINT CONSTRUCT Left: Knee TORREY:TORREY US 01/08/2035 42-5360-0 71 [id number] Insurance [address] [place] [address] MEDICARE PART A B Advance Directives For more information, please contact: [phone] * Full Code (Latest Code Status on File) Date Activated Date Inactivated Comments 03/31/2025 9:47 AM 04/01/2025 3:21 PM * Full Code Date Activated Date Inactivated Comments 03/31/2025 6:12 AM 03/31/2025 9:47 AM Care Teams Tool Engine Lathe Set Up Operator Relationship Specialty Start Date End Date Dillan Jain MD [address] [place] [address] PCP - General Family Medicine 03/24/25
--- OUTSIDE RECORDS SUMMARY | 2025-07-16 07:45 | XMS_ITS | Clinical Summary ---
Author Organization [facility] Address [facility] [place] [address] Phone Care Team Providers Care Combination Saw Operator Name Role Phone Dillan Jain MD Primary Care Provider [phone] Allergies Active Allergy Reactions Criticality Noted Date [...] 1998 RSV or 60+ (1 - Risk 50-74 years 1-dose series) 2003 Bone Density Screening 2018 Pneumococcal Vaccine 50+ [...] EDT Impressions 12/04/2023 3:40 PM EDT Negative ([id number]-Gjykgzah-9) ~ RECOMMENDATION: Routine screening mammogram in 1 [...] the next mammogram, in accordance with the [employer] and the Society of Breast Imaging recommendations. Narrative 12/04/2023 3:40 PM EDT Procedure:MM MAMMO DIGITAL LIGIA SCREEN BILAT ~ Reason for exam: screening, asymptomatic. Z12.31-Encounter for screening mammogram for malignant neoplasm of iytggn-ACS-50-CM ~ MM MAMMO DIGITAL LIGIA SCREEN BILAT [...] for screening mammogram for malignant neoplasm of [id number]-SWU-94-CM ~ MM MAMMO DIGITAL LIGIA SCREEN BILAT Bilateral CC and MLO view(s) were taken. There are scattered fibroglandular densities. Prior study comparison: Compared with prior studies the most recentbeing 01/26/22, 01/22/21 No mammographic evidence of malignancy. ~ IMPRESSION: Negative (PCI-Apyvswoo-9) ~ RECOMMENDATION: Routine screening mammogram in 1 [...] the next mammogram, in accordance with the [place] and the Society of Breast Imaging recommendations. Dillan Jain MD IMG MAMMOGRAPHY ORDERABLE S Final Result from Last 3 Months or Most Recently Relevant to Health Maintenance Insurance MEDICARE [place] PART A AND B [facility] MEDICARE [employer] MEDICARE [place] PART A AND B [facility] [employer] Care Teams Combination Saw Operator Relationship Specialty Start Date End Date Dillan Jain MD [facility] [address] [place] [address] PCP - General Family Medicine 11/30/18
--- NOTE | 2025-07-16 08:06 | US_ITS ---
FINAL REPORT CLINICAL HISTORY: ABNL ULTRA SOUND / LT THYROID NODULE - PHILLIP CHUNG FINDINGS: Ultrasound guided thyroid biopsy. HISTORY: Left thyroidmass. Attending radiologist: Dr. Madison Physician Office Administration Instructor: Stevenson Maldonado PA-C PROCEDURE: After informed consent was obtained and a time-out was performed, the patient was prepped and draped in usual sterile fashion over the left neck. Utilizing local anesthesia and sterile technique with a 25-gauge needle, access to lesion was obtained. Three passes were made under direct ultrasound guidance. The lesion was primarily cystic and approximately 15 mL of fluid was aspirated with sample sent for cytology. The patient received no conscious sedation. The patient tolerated procedure well and left the department in good condition. IMPRESSION: Status post ultrasound guided biopsy of thyroid without immediate complication. Reviewed, Interpreted and Dictated by Lo Madison MD Transcribed by SHELDON Mishra Authenticated and [facility]
== END 2025-07-16 23:59 | disposition home or self-care (01) ==
LOC: RAD 07:40
PROVIDERS: PCP Family Medicine; Visit Provider Family Medicine
DX: E04.1 Nontoxic single thyroid nodule (principal); R93.89 Abnormal findings on diagnostic imaging of other specified body structures
CPT/HCPCS: 10005